=== PATIENT | male | born 1945 | race Caucasian/White ===

== ENCOUNTER → 2018-03-11 08:50 | Outpatient (CLI) | payer MEDICARE, SELFPAY ==
[2018-03-11 12:03] LABS: Absolute Lymphocyte Count 0.95 X10^3/ul (0.83-4.51); Absolute Neutrophil Count 6.1 X10^3/uL (2.0-7.7); Basophil# 0.01 X10^3/uL; Basophil% 0.1 % (0-1); Eosinophil# 0.11 X10^3/uL; Eosinophils% 1.4 % (0-5); Hematocrit 40.3 % (40-54); Hemoglobin 13.5 g/dl (13.0-16.5); Lymphocyte # 0.95 X10^3/ul (4.0); Lymphocyte % 12.1 % (19-41); Mean Corp Hgb Conc 33.5 g/gl (32-36); Mean Corpuscular Hgb 29.2 pg (27.0-32.0); Mean Corpuscular Volume 87.2 fL (80-94); Mean Platelet Vol. 8.8 fl (6.2-12.0); Monocyte# 0.61 X10^3/uL; Monocyte% 7.8 % (0-10); Neutrophil # 6.14 X10^3/uL (2.7-7.7); Neutrophil % 78.6 % (47-70); Platelet Count 141 K/mm3 (150-450); RBC Distribution Width CV 13.7 % (11.6-14.6); RBC Distribution Width SD 43.4 fl (35.1-43.9); Red Blood Count 4.62 M/mm3 (4.6-6.2); White Blood Count 7.8 K/mm3 (4.4-11.0)
[2018-03-11 12:04] LABS: POSITIVE COUNT NO; POSITIVE DIFFERENTIAL NO; POSITIVE MORPHOLOGY NO
[2018-03-11 12:29] LABS: ALB/GLOB Ratio 0.9 RATIO (0.9-2.4); AST(SGOT) 38 U/L (15-37); Alanine Aminotransfer ALT/SGPT 48 U/L (16-61); Albumin, Serum 3.4 g/dL (3.2-5.0); Alkaline Phosphatase 111 U/L (45-117); Anion Gap 5 (5-15); BUN 15 mg/dL (7-18); BUN/Creat Ratio 17.5 RATIO (10-20); Calcium,Total 9.1 mg/dL (8.5-10.1); Chloride 106 mmol/L (98-107); Creatinine, Serum 0.86 mg/dL (0.70-1.30); EST Glomerular Filtration Rate 93 mL/min (>60); Est Glom Filt Rate - Afr Amer 113 mL/min (>60); Globulin 3.7 g/dL (2.2-4.2); Glucose 103 mg/dL (74-106); Potassium 3.9 mmol/L (3.5-5.1); Protein, Total 7.1 g/dL (6.4-8.2); Sodium Level 142 mmol/L (136-145); Thyroid Stim Hormone (TSH) 1.31 uIU/mL (0.358-3.74)
[2018-03-12 12:02] LABS: Hep C Antibodies <0.1 s/co ratio (0.0-0.9)
== END ==
PROVIDERS: Family Provider Family Medicine Geriatric Medicine; PCP Family Medicine Geriatric Medicine; Visit Provider Family Medicine Geriatric Medicine
DX: Z13.89 Encounter for screening for other disorder (principal); E55.9 Vitamin D deficiency, unspecified; F52.8 Other sexual dysfunction not due to a substance or known physiological condition; I10 Essential (primary) hypertension
CPT/HCPCS: 36415; 80053; 82306; 84403; 84443; 85025; 86803

== ENCOUNTER → 2018-06-11 14:52 | Outpatient (CLI) | payer MEDICARE, SELFPAY ==
[2018-03-11 12:17] LABS: International Normalized Ratio 2.6; Prothrombin Time (Protime)PT. 28.1 SECONDS (11.7-14.9)
== END ==
PROVIDERS: Family Provider Family Medicine Geriatric Medicine; PCP Family Medicine Geriatric Medicine; Visit Provider Internal Medicine Cardiovascular Disease
DX: I48.1 Persistent atrial fibrillation (principal); Z79.01 Long term (current) use of anticoagulants
CPT/HCPCS: 36415; 85610

== ENCOUNTER 2018-08-22 14:06 | Emergency (ER) | payer MEDICARE, SELFPAY ==
[2018-08-22 14:07] VITALS: BP 167/111; PULSE 86; RESP 20; TEMP 36.6; O2SAT 98; BMI 43.0
--- NOTE | 2018-08-22 14:24 | CT_ITS ---
STUDY: CT ABDOMEN AND PELVIS WITHOUT CONTRAST REASON FOR EXAM: Male, 73 years old. Right flank pain. History of prostate cancer RADIATION DOSAGE (If Supplied By Facility): CTDIvol = ( 34.28 ) mGy, DLP = ( 1815.71 ) mGycm TECHNIQUE: Transaxial images were obtained from the dome of the diaphragm to the symphysis pubis without oral contrast, and without intravenous contrast. Sagittal and coronal images were reconstructed. Individualized dose optimization techniques were used for this CT. COMPARISON: March 27, 2016 FINDINGS: The visualized lung bases are unremarkable. The visualized portions of the heart are within normal limits. There is hepatomegaly with diffuse hepatic enlargement. There are surgical clips in the gallbladder fossa consistent with a prior cholecystectomy. Normal spleen. Normal pancreas. Normal bilateral adrenal glands. There is 1.2 cm cyst with layering increased density at the upper pole of the right kidney. There is 0.1 cm calcification at the lower pole. There is mild right hydronephrosis. There is 0.5 cm right ureteral stone at the level of the sacrum, series 2 image 126/193. There are 5 stones of the left kidney measuring 0.3 to 0.6 cm. Normal visualized stomach. Normal small intestine. Normal colon. The appendix is visualized and appears normal. There is diffuse atherosclerotic calcification of the abdominal aorta, without a demonstrated aneurysm. Normal inferior vena cava. Normal retroperitoneum. Normal urinary bladder. There are seed implants within the prostate gland Normal abdominal wall. There are diffuse degenerative changes of the visualized lumbar spine. CT/Abdomen/Pelvis without Cont IMPRESSION: Bilateral renal stones. Right ureteral stone with hydronephrosis. Electronically Signed: Shoaib Valentine MD at 15:54 EDT , Service support ,
--- NOTE | 2018-08-22 14:26 | ED.DCSUM_ITS ---
- ER Visit Summary Date of Service: 08/22/18 Chief Complaint: Right flank pain History of Present Illness: The patient is a 73 M nontraumatic sudden right flank pain starting 2 hours ago. No radicular symptoms. Nausea without vomiting. Currently not nauseated. Pain is 6.5-7 out of 10. History of kidney stones in the past last time was 3 years ago. This feels similar. No urinary symptoms. No fevers. He is on warfarin history of persistent A. fib. Last check was proximal month ago which was 3. No history of gastric ulcers or kidney injury. Physical Examination: General: Alert and oriented ?3, no acute distress HEENT: Normocephalic, atraumatic. Moist mucosa membranes Neck: supple, nontender. Cardiovascular: Regular rate and rhythm, no murmurs Respiratory: Normal breath sounds, symmetric, no distress Back: No CVA tenderness, no ecchymosis Abdomen: Soft, nontender, nondistended Extremities: Nontender, no edema, pulses intact ?4 Neuro: no focal neurological deficits. Test Results: WBC 6.9, hemoglobin 13.9. Creatinine 0.94. INR 2.6. CT abdomen pelvis: 0.5 cm distal right ureteral stone. Multiple nephrolithiasis.. UA: Emergency Department Course and Treatment: Renal stone protocol similar symptoms in the past. Treated with Zosyn and Toradol with pain control. He had transient nausea with pain. Basic labs normal. CT scan did confirm a distal right ureteral stone. He was given Flomax in the ED. Pain returned, treated with morphine. Pending urine results. 1650 urine blood with no infection. Pain controlled. He is on Terazosin at home for BPH. He will hold this this evening. He will continue it tomorrow. He will call his urologist Dr. Landrum for follow-up. Treatment Plan: [] Disposition: Discharge Impression: Right urolithiasis This note was generated with [employer] dictation software. It may contain incorrect words, spelling, and punctuation that were not noted in review of the chart prior to signing ED Disposition - Plan for ED Patient: Disposition: Home or Assisted Living Chief Complaint: Flank Pain Diagnosis: Urolithiasis Instructions: ED Stone Renal W Colic Prescriptions: Oxycodone HCl/Acetaminophen [Percocet 5/325] 1 tablet PO Q6H PRN PRN 3 Days #12 tablet PRN Reason: Pain Ondansetron [Zofran Odt] 8 mg PO Q8H PRN PRN #10 tab PRN Reason: Nausea Ibuprofen 600 mg PO 4X/DAY PRN #20 tablet PRN Reason: Pain Referrals: James Pisano Chi, MD [Primary Care Provider] - Molina Landrum MD [NON-STAFF] - 3-5 Days Additional Instructions: 0.5cm distal right ureter.
[2018-08-22] MEDS: 0.9% Normal Saline 1,000 ML 250 ML IV (14:41)
[2018-08-22 14:42] LABS: Absolute Lymphocyte Count 1.19 X10^3/ul (0.83-4.51); Basophil# 0.02 X10^3/uL; Basophil% 0.3 % (0-1); Eosinophils% 2.9 % (0-5); Hematocrit 40.8 % (40-54); Hemoglobin 13.9 g/dl (13.0-16.5); Lymphocyte # 1.19 X10^3/ul (4.0); Lymphocyte % 17.3 % (19-41); Mean Corp Hgb Conc 34.1 g/gl (32-36); Mean Corpuscular Volume 85.2 fL (80-94); Mean Platelet Vol. 8.6 fl (6.2-12.0); Monocyte# 0.43 X10^3/uL; Monocyte% 6.2 % (0-10); Neutrophil # 5.04 X10^3/uL (2.7-7.7); Neutrophil % 73.2 % (47-70); POSITIVE COUNT NO; POSITIVE DIFFERENTIAL NO; POSITIVE MORPHOLOGY NO; Platelet Count 160 K/mm3 (150-450); RBC Distribution Width CV 13.9 % (11.6-14.6); RBC Distribution Width SD 42.3 fl (35.1-43.9); Red Blood Count 4.79 M/mm3 (4.6-6.2); White Blood Count 6.9 K/mm3 (4.4-11.0)
[2018-08-22] MEDS: Ondansetron 4 MG/2 ML Vial IV (14:42)
[2018-08-22] MEDS: Ketorolac 30 MG/ML Syringe IV (14:42)
[2018-08-22 14:47] LABS: International Normalized Ratio 2.6; Prothrombin Time (Protime)PT. 27.8 SECONDS (11.7-14.9)
[2018-08-22 14:53] LABS: Anion Gap 6 (5-15); BUN 12 mg/dL (7-18); BUN/Creat Ratio 12.8 RATIO (10-20); Calcium,Total 8.9 mg/dL (8.5-10.1); Chloride 105 mmol/L (98-107); Creatinine, Serum 0.94 mg/dL (0.70-1.30); EST Glomerular Filtration Rate 84 mL/min (>60); Est Glom Filt Rate - Afr Amer 102 mL/min (>60); Estimated Creatinine Clearance 79.11 ml/min; Glucose 117 mg/dL (74-106); Potassium 4.2 mmol/L (3.5-5.1); Sodium Level 139 mmol/L (136-145)
[2018-08-22] MEDS: Tamsulosin HCl 0.4 MG Capsule PO (15:41)
[2018-08-22] MEDS: Morphine 4 MG/ML Syringe IV (16:25)
[2018-08-22 16:35] LABS: Bacteria 0 SEEN /hpf (None Seen); Mucous, Urine 0 SEEN /hpf (<or=2+); White Blood Cells 0 SEEN /hpf (0-5)
[2018-08-22 16:39] LABS: Color, Urine Yellow (Yellow); Glucose, Dipstick Normal (Normal); Ketone-Dipstick Negative (Negative); Leukocyte Esterase-Dipstick Negative /ul (Negative); Nitrite-Dipstick Negative (Negative); Occult Blood-Urine 50 /ul (Negative); Protein-Dipstick Negative (Negative); Urine Bilirubin Dipstick Negative (Negative); Urine Clarity Sl. Cloudy (Clear); Urine Urobilinogen Normal (Normal)
[2018-08-22 16:54] LABS: Red Blood Cells-Urine 0-5 SEEN /hpf (0-5); Squamous Epithelial Cells - UA 0-5 SEEN /hpf (0-5)
[2018-08-22 17:18] VITALS: BP 153/78; PULSE 82; RESP 16; O2SAT 98
== END 2018-08-22 17:21 | disposition home or self-care (01) ==
PROVIDERS: Emergency Provider Emergency Medicine; Family Provider Family Medicine Geriatric Medicine; PCP Family Medicine Geriatric Medicine
DX: N20.2 Calculus of kidney with calculus of ureter (principal); Z87.442 Personal history of urinary calculi; I48.1 Persistent atrial fibrillation; I25.10 Atherosclerotic heart disease of native coronary artery without angina pectoris; Z95.1 Presence of aortocoronary bypass graft; Z85.46 Personal history of malignant neoplasm of prostate; Z90.49 Acquired absence of other specified parts of digestive tract; Z79.01 Long term (current) use of anticoagulants; Z79.82 Long term (current) use of aspirin; Z79.899 Other long term (current) drug therapy; Z87.891 Personal history of nicotine dependence
CPT/HCPCS: 74176; 80048; 81001; 85025; 85610; 96361; 96374; 96375; 99284; J7030; A4216; J2405

== ENCOUNTER 2018-12-27 09:37 | Emergency (ER) | payer OTHER, MEDICARE, SELFPAY ==
[2018-12-03 10:43] VITALS: BMI 41.6
[2018-12-27 09:38] VITALS: BP 147/94; PULSE 101; RESP 22; TEMP 36.6; O2SAT 93; BMI 33.9
[2018-12-27 09:45] VITALS: BP 125/63; PULSE 93; O2SAT 92
--- NOTE | 2018-12-27 09:48 | ED.RN ---
made aware patient is here at this time.
--- NOTE | 2018-12-27 09:53 | EKG12_ITS ---
Test Reason : FALL Blood Pressure : / mmHG Vent. Rate : 100 BPM Atrial Rate : 441 BPM P-R Int : 000 ms QRS Dur : 090 ms QT Int : 344 ms P-R-T Axes : 000 031 029 degrees QTc Int : 443 ms Atrial fibrillation with premature ventricular or aberrantly conducted complexes Nonspecific ST and T wave abnormality Abnormal ECG Confirmed by HANNAH SIMON, ANNA ([id number]), deputy editor in chief JESSICA MILNER ([id number]) on 12/29/2018 9:36:17 AM Referred By: Confirmed By:ANNA YOUNG MD
--- NOTE | 2018-12-27 09:53 | RAD_ITS ---
STUDY: X-RAY CHEST REASON FOR EXAM: Male, 73 years old. History of fall. TECHNIQUE: Single AP portable view of the chest. COMPARISON: Comparison is made with prior study of April 02, 2016. FINDINGS: EKG electrodes are seen. Hyperinflation. Mild increased markings at the lung bases suggestive of scarring and/or atelectasis. Mild degree of vascular congestion. There is no demonstrated pleural abnormality. Sternal cerclage wires and vascular clips are present from a prior sternotomy and coronary artery bypass graft procedure (CABG). Moderate cardiomegaly. Normal mediastinum and parul. Normal visualized pulmonary arteries. Normal visualized aortic arch and descending thoracic aorta. Normal visualized thoracic spine. Normal visualized ribs, clavicles, and shoulders. There is no demonstrated abnormality of the visualized soft tissue structures of the upper abdomen. RAD/Chest 1 View (Portable) IMPRESSION: Moderate cardiomegaly. Findings suggestive of a mild vascular congestion with mild linear atelectasis at the lung bases. Electronically Signed: Benjie Lieberman MD at 10:54 EST , Service support ,
--- NOTE | 2018-12-27 09:53 | CT_ITS ---
We are attempting to reach Efrain Enriquez MD to discuss findings. An addendum with communication details will be sent when the communication is complete. STUDY: CT BRAIN WITHOUT CONTRAST REASON FOR EXAM: Male, 73 years old. PT STATED FALL DOWN STAIRS. TAKES ASPIRIN AND COUMADIN DAILY.. RADIATION DOSAGE (If Supplied By Facility): CTDIvol = ( 44.99 ) mGy, DLP = ( 829.85 ) mGycm TECHNIQUE: Transaxial CT imaging of the brain was performed without administration of intravenous contrast material. Individualized dose optimization techniques were used for this CT. COMPARISON: None. FINDINGS: There is hyperdensity along the interhemispheric fissure and tentorium. There is hyperdensity along the right parasagittal sulci as well, consistent with subarachnoid hemorrhage. There is a 3 mm thick hyperdensity along the left frontal convexity (axial image #26 series 2) There is mild cerebral atrophy with widening of the extra-axial spaces and ventricular dilatation. There are areas of decreased attenuation within the white matter tracts of the supratentorial brain, consistent with microvascular disease changes. Normal basal ganglia and thalami. Normal brainstem. Normal cerebellum. There are no findings of an acute ischemic infarction. Normal visualized paranasal sinuses. There is left occipital swelling. CT/Brain/Head without Contrast IMPRESSION: Left frontal subdural/epidural hematoma. Subarachnoid hemorrhage. Electronically Signed: Christina Hernandez MD at 10:48 EST Tel , Service support ,
--- NOTE | 2018-12-27 09:54 | RAD_ITS ---
STUDY: X-RAY - RIGHT HAND REASON FOR EXAM: Male, 73 years old. Pain following a fall. TECHNIQUE: 3 view(s) of the hand. COMPARISON: None. FINDINGS: Normal radiocarpal articulation. Normal distal radioulnar joint. Normal visualized carpal bones. Normal carpal articulations Normal carpometacarpal articulation of the thumb. Normal second through fifth carpometacarpal joints. Normal metacarpi. Normal metacarpophalangeal joint of the thumb. Normal interphalangeal joint of the thumb. Normal proximal and distal phalanges of the thumb. Normal metacarpophalangeal joints of the second through fifth fingers. Normal proximal and distal interphalangeal joints of the second through fifth fingers. Normal phalanges of the second through fifth fingers. Soft tissue swelling. Vascular calcification. RAD/Hand Min 3 Views IMPRESSION: Soft tissue swelling and vascular calcification. Electronically Signed: Benjie Lieberman MD at 10:56 EST , Service support ,
--- NOTE | 2018-12-27 09:55 | RAD_ITS ---
STUDY: X-RAY - LEFT HAND REASON FOR EXAM: Male, 73 years old. Pain following a fall. TECHNIQUE: 3 view(s) of the hand. COMPARISON: None. FINDINGS: Normal radiocarpal articulation. Normal distal radioulnar joint. Normal visualized carpal bones. Normal carpal articulations Normal carpometacarpal articulation of the thumb. Normal second through fifth carpometacarpal joints. Normal metacarpi. Normal metacarpophalangeal joint of the thumb. Normal interphalangeal joint of the thumb. Normal proximal and distal phalanges of the thumb. Normal metacarpophalangeal joints of the second through fifth fingers. Normal proximal and distal interphalangeal joints of the second through fifth fingers. Normal phalanges of the second through fifth fingers. Soft tissue swelling. Vascular calcification. RAD/Hand Min 3 Views IMPRESSION: Soft tissue swelling and vascular calcification. Electronically Signed: Benjie Lieberman MD at 10:59 EST , Service support ,
--- NOTE | 2018-12-27 09:55 | CT_ITS ---
We are attempting to reach Efrain Enriquez MD to discuss findings. An addendum with communication details will be sent when the communication is complete. STUDY: CT CERVICAL SPINE WITHOUT CONTRAST REASON FOR EXAM: Male, 73 years old. PT STATED FALL DOWN STAIRS. TAKES ASPIRIN AND COUMADIN DAILY. RADIATION DOSAGE (If Supplied By Facility): CTDIvol = ( 30.21 ) mGy, DLP = ( ) mGycm TECHNIQUE: The patient was scanned in a multi detector CT scanner. High resolution transaxial imaging was performed. Sagittal and coronal images were reconstructed. Individualized dose optimization techniques were used for this CT. COMPARISON: None FINDINGS: Examination is degraded by motion artifact. Normal cervical lordosis. There are no demonstrated fractures of the cervical spine. There is multilevel endplate spondylosis of the vertebrae. There is multi-level degenerative disc disease with multi-level disc space narrowing. There is a hyperdense right pleural fluid. CT/Spine Cervical without Contras IMPRESSION: Limited examination. No demonstrated fractures. Hyperdense right pleural effusion, hemorrhage is not excluded. Further evaluation with CT chest is recommended. Electronically Signed: Christina Hernandez MD at 10:51 EST Tel , Service support ,
[2018-12-27] MEDS: Ondansetron 4 MG/2 ML Vial IV (10:08)
[2018-12-27 10:24] LABS: Hematocrit 37.7 % (40-54); Hemoglobin 12.3 g/dl (13.0-16.5); Mean Corpuscular Hgb 28.5 pg (27.0-32.0); Mean Corpuscular Volume 87.3 fL (80-94); Red Blood Count 4.32 M/mm3 (4.6-6.2); White Blood Count 6.6 K/mm3 (4.4-11.0)
[2018-12-27 10:25] VITALS: BP 133/102; PULSE 102; RESP 27; O2SAT 95
[2018-12-27 10:25] LABS: Basophil% 0.3 % (0-1); Lymphocyte # 0.95 X10^3/ul (4.0); Lymphocyte % 14.4 % (19-41); Mean Corp Hgb Conc 32.6 g/gl (32-36); Monocyte% 6.4 % (0-10); Neutrophil # 5.01 X10^3/uL (2.7-7.7); Neutrophil % 75.8 % (47-70); Platelet Count 136 K/mm3 (150-450); RBC Distribution Width CV 13.8 % (11.6-14.6); RBC Distribution Width SD 44.2 fl (35.1-43.9)
[2018-12-27 10:26] LABS: Absolute Lymphocyte Count 0.95 X10^3/ul (0.83-4.51); Basophil# 0.02 X10^3/uL; Eosinophil# 0.13 X10^3/uL; Monocyte# 0.42 X10^3/uL; POSITIVE COUNT NO; POSITIVE DIFFERENTIAL NO; POSITIVE MORPHOLOGY NO
[2018-12-27 10:31] VITALS: BP 128/66; PULSE 98; O2SAT 95
[2018-12-27 10:31] LABS: Prothrombin Time (Protime)PT. 29.2 SECONDS (11.7-14.9)
[2018-12-27 10:32] LABS: International Normalized Ratio 2.7
--- NOTE | 2018-12-27 10:34 | ED.VISSUMM ---
- ER Visit Summary Date of Service: 12/27/18 Chief Complaint: Patient presents by ambulance after fall with loss of conscious. History of Present Illness: The patient is a 73 M patient is not oriented. He is not alert. He does not recall what happened. I was informed that he was walking out of his place of employment slipped on ice hitting the back of his head. He does report head pain and nausea. He denies trouble with vision. He denies chest pain or shortness of breath. He does complain of low back pain. He denies pain in his lower extremity's. He complains of bilateral hand pain. Past medical history of coronary disease status post multivessel bypass, diabetes, hypertension, hypercholesterolemia and chronic H fibrillation on Coumadin. Physical Examination: Vital signs noted. Heart rate is 102. Monitor reveals atrial fibrillation without ectopy. Patient has deformities in the occiput. There is no point depression. There is no hemotympanum. There is no CSF otorrhea or rhinorrhea. Negative raccoon sign or sanches sign. Trachea midline. Could not clear his C-spine per Nexus criteria. Heart is irregularly irregular and rapid. Lungs reveal breath sounds bilaterally but diminished. Abdomen soft nontender. Is no pain the patient the pelvis. No pain palpation of the thigh, leg or feet. There is pain palpation of the right and left hand with contusions and abrasions noted. Radial pulses palpable bilateral. Unable to appreciate PT pulse either side. Capillary refill in digits upper and lower extremity is normal. GCS is 14. Test Results: CT of the head interpreted by me as subdural hematoma involving the falx, contusion multiple cuts parenchyma right side and traumatic subarachnoid hemorrhage. C-spine reviewed by me interpreted radiologist as negative for acute findings. Portable chest x-ray is supine. Unable to determine if there truly is what he the mediastinum suspect secondary to fact that he is post coronary bypass surgery and supine. There is increased interstitial markings which may be secondary the fact the patient is on a board. Three-view x-ray of the right and left hand were interpreted by me as negative. Hemoglobin 12.3 with hematocrit of 37.7. Basic metabolic panel is pending. INR is 2.7. Emergency Department Course and Treatment: Stat CT of the head and neck because of concern for traumatic bleed. Stat PT/INR. Since patient does have entered cranial bleed he was treated with 10 mg of vitamin K IV and once INR was obtained he was ordered [facility]. Pharmacist is aware. Attempt to transfer by ground unsuccessful. Attempt to transfer by air unsuccessful. [facility], was contacted and is willing to transfer for patient emergently to [facility] where he was accepted by Dr. Ira Bro. Critical care time 32 minutes Treatment Plan: Vitamin K, [facility], stabilization, transfer to trauma center Disposition: Critical transfer to trauma center Impression: 1. Traumatic brain injury with subdural of falx, right parenchymal bleed multiple cuts and traumatic subarachnoid hemorrhage 2. Coumadin induced coagulopathy for treatment of chronic A. fib with RVR 3. History of coronary disease 4. History of diabetes 5. History of hypertension 6. History of hypercholesterolemia This note was generated with [employer] dictation software. It may contain incorrect words, spelling, and punctuation that were not noted in review of the chart prior to signing ED Disposition - Plan for ED Patient: Referrals: James Pisano Chi, MD [Primary Care Provider] -
[2018-12-27 10:37] LABS: Anion Gap 6 (5-15); BUN 14 mg/dL (7-18); BUN/Creat Ratio 15.8 RATIO (10-20); Calcium,Total 8.3 mg/dL (8.5-10.1); Chloride 108 mmol/L (98-107); Creatinine, Serum 0.89 mg/dL (0.70-1.30); EST Glomerular Filtration Rate 90 mL/min (>60); Est Glom Filt Rate - Afr Amer 109 mL/min (>60); Estimated Creatinine Clearance 83.56 ml/min; Glucose 159 mg/dL (74-106); Potassium 3.7 mmol/L (3.5-5.1); Sodium Level 142 mmol/L (136-145)
--- NOTE | 2018-12-27 10:37 | ED.DCSUM_ITS ---
- ER Visit Summary Date of Service: 12/27/18 Chief Complaint: Patient presents by ambulance after fall with loss of conscious. History of Present Illness: The patient is a 73 M patient is not oriented. He is not alert. He does not recall what happened. I was informed that he was walking out of his place of employment slipped on ice hitting the back of his head. He does report head pain and nausea. He denies trouble with vision. He denies chest pain or shortness of breath. He does complain of low back pain. He denies pain in his lower extremity's. He complains of bilateral hand pain. Past medical history of coronary disease status post multivessel bypass, diabetes, hypertension, hypercholesterolemia and chronic H fibrillation on Coumadin. Physical Examination: Vital signs noted. Heart rate is 102. Monitor reveals atrial fibrillation without ectopy. Patient has deformities in the occiput. There is no point depression. There is no hemotympanum. There is no CSF otorrhea or rhinorrhea. Negative raccoon sign or sanches sign. Trachea midline. Could not clear his C-spine per Nexus criteria. Heart is irregularly irregular and rapid. Lungs reveal breath sounds bilaterally but diminished. Abdomen soft nontender. Is no pain the patient the pelvis. No pain palpation of the thigh, leg or feet. There is pain palpation of the right and left hand with contusions and abrasions noted. Radial pulses palpable bilateral. Unable to appreciate PT pulse either side. Capillary refill in digits upper and lower extremity is normal. GCS is 14. Test Results: CT of the head interpreted by me as subdural hematoma involving the falx, contusion multiple cuts parenchyma right side and traumatic subarachnoid hemorrhage. C-spine reviewed by me interpreted radiologist as negative for acute findings. Portable chest x-ray is supine. Unable to determine if there truly is what he the mediastinum suspect secondary to fact that he is post coronary bypass surgery and supine. There is increased interstitial markings which may be secondary the fact the patient is on a board. Three-view x-ray of the right and left hand were interpreted by me as negative. Hemoglobin 12.3 with hematocrit of 37.7. Basic metabolic panel is pending. INR is 2.7. Emergency Department Course and Treatment: Stat CT of the head and neck because of concern for traumatic bleed. Stat PT/INR. Since patient does have entered cranial bleed he was treated with 10 mg of vitamin K IV and once INR was obtained he was ordered [facility]. Pharmacist is aware. Attempt to transfer by ground unsuccessful. Attempt to transfer by air unsuccessful. Local [facility], was contacted and is willing to transfer for patient emergently to [facility] where he was accepted by Dr. Ira Bro. Critical care time 32 minutes Treatment Plan: Vitamin K, [facility], stabilization, transfer to trauma center Disposition: Critical transfer to trauma center Impression: 1. Traumatic brain injury with subdural of falx, right parenchymal bleed multiple cuts and traumatic subarachnoid hemorrhage 2. Coumadin induced coagulopathy for treatment of chronic A. fib with RVR 3. History of coronary disease 4. History of diabetes 5. History of hypertension 6. History of hypercholesterolemia This note was generated with [employer] dictation software. It may contain incorrect words, spelling, and punctuation that were not noted in review of the chart prior to signing ED Disposition - Plan for ED Patient: Referrals: James Pisano Chi, MD [Primary Care Provider] -
[2018-12-27 10:42] VITALS: BP 126/70; PULSE 103; RESP 28
[2018-12-27 10:45] VITALS: BP 137/99; PULSE 104; O2SAT 95
[2018-12-27 10:50] LABS: White Blood Cells 0 SEEN /hpf (0-5)
[2018-12-27 10:55] LABS: Color, Urine Yellow (Yellow); Glucose, Dipstick Normal (Normal); Ketone-Dipstick 5 mg/dl (Negative); Leukocyte Esterase-Dipstick Negative /ul (Negative); Nitrite-Dipstick Negative (Negative); Occult Blood-Urine 250 /ul (Negative); Protein-Dipstick 30 mg/dl (Negative); Urine Bilirubin Dipstick Negative (Negative); Urine Clarity Clear (Clear); Urine Urobilinogen 1 mg/dl (Normal)
[2018-12-27 11:08] LABS: Bacteria RARE /hpf (None Seen); Hyaline Cast 0-5 SEEN /lpf (0-5); Mucous, Urine 1+ /hpf (<or=2+); Red Blood Cells-Urine 10-25 SEEN /hpf (0-5); Squamous Epithelial Cells - UA 0-5 SEEN /hpf (0-5)
== END 2018-12-27 11:13 | disposition short-term general hospital (02) ==
LOC: ED 10:09
PROVIDERS: Emergency Provider Emergency Medicine; Family Provider Family Medicine Geriatric Medicine; PCP Family Medicine Geriatric Medicine
DX: S06.5X9A Traumatic subdural hemorrhage with loss of consciousness of unspecified duration, initial encounter (principal); S06.6X9A Traumatic subarachnoid hemorrhage with loss of consciousness of unspecified duration, initial encounter; S27.1XXA Traumatic hemothorax, initial encounter; W00.0XXA Fall on same level due to ice and snow, initial encounter; Y93.01 Activity, walking, marching and hiking; Y92.9 Unspecified place or not applicable; Y99.0 Civilian activity done for income or pay; D68.32 Hemorrhagic disorder due to extrinsic circulating anticoagulants; T45.515A Adverse effect of anticoagulants, initial encounter; I48.2 Chronic atrial fibrillation; E11.9 Type 2 diabetes mellitus without complications; I10 Essential (primary) hypertension; E78.00 Pure hypercholesterolemia, unspecified; I25.10 Atherosclerotic heart disease of native coronary artery without angina pectoris; E66.9 Obesity, unspecified; Z68.33 Body mass index [BMI] 33.0-33.9, adult; Z79.01 Long term (current) use of anticoagulants; Z79.82 Long term (current) use of aspirin; Z79.899 Other long term (current) drug therapy; Z87.891 Personal history of nicotine dependence
CPT/HCPCS: 70450; 71045; 72125; 73130; 80048; 81001; 85025; 85610; 93005; 96365; 96375; 99285; C9132; J7030; A4216; J2405; J3490

== ENCOUNTER 2019-08-22 13:56 | Outpatient (RCR) | payer MEDICARE, SELFPAY ==
[2019-03-15 11:20] VITALS: BMI 38.3
[2019-08-22 14:32] LABS: International Normalized Ratio 3.2
== END 2019-08-22 18:00 | disposition home or self-care (01) ==
LOC: LAB 13:56
PROVIDERS: Family Provider Family Medicine Geriatric Medicine; PCP Family Medicine Geriatric Medicine; Referring Provider Nurse Practitioner Family; Visit Provider Nurse Practitioner Family
DX: Z79.01 Long term (current) use of anticoagulants (principal)
CPT/HCPCS: 36415; 85610

== ENCOUNTER → 2019-09-20 12:16 | Outpatient (CLI) | payer OTHER, SELFPAY ==
[2019-03-15 11:20] VITALS: BMI 38.3
[2019-09-20 15:46] LABS: Absolute Neutrophil Count 4.7 X10^3/uL (2.0-7.7); Basophil# 0.03 X10^3/uL; Basophil% 0.5 % (0-1); Eosinophil# 0.21 X10^3/uL; Eosinophils% 3.2 % (0-5); Hematocrit 39.9 % (40-54); Hemoglobin 12.8 g/dL (13.0-16.5); Lymphocyte % 16.7 % (19-41); Mean Corp Hgb Conc 32.1 g/dL (32-36); Mean Corpuscular Hgb 27.8 pg (27.0-32.0); Mean Corpuscular Volume 86.6 fL (80-94); Mean Platelet Vol. 9.7 fl (6.2-12.0); Monocyte# 0.52 X10^3/uL; Monocyte% 7.9 % (0-10); NRBC Flagged by Analyzer 0 % (0-5); Neutrophil # 4.71 X10^3/uL (2.7-7.7); Neutrophil % 71.5 % (47-70); Platelet Count 151 K/mm3 (150-450); RBC Distribution Width CV 13.7 % (11.6-14.6); Red Blood Count 4.61 M/mm3 (4.6-6.2); White Blood Count 6.6 K/mm3 (4.4-11.0)
[2019-09-20 16:30] LABS: ALB/GLOB Ratio 0.9 RATIO (0.9-2.4); AST(SGOT) 30 U/L (15-37); Alanine Aminotransfer ALT/SGPT 47 U/L (16-61); Albumin, Serum 3.5 g/dL (3.2-5.0); Alkaline Phosphatase 131 U/L (45-117); Anion Gap 6 (5-15); BUN 15 mg/dL (7-18); BUN/Creat Ratio 16.9 RATIO (10-20); Calcium,Total 9.4 mg/dL (8.5-10.1); Chloride 105 mmol/L (98-107); Creatinine, Serum 0.89 mg/dL (0.70-1.30); EST Glomerular Filtration Rate 89 mL/min (>60); Est Glom Filt Rate - Afr Amer 108 mL/min (>60); Glucose 90 mg/dL (74-106); Potassium 4.4 mmol/L (3.5-5.1); Protein, Total 7.5 g/dL (6.4-8.2); Sodium Level 140 mmol/L (136-145)
== END ==
PROVIDERS: Family Provider Family Medicine Geriatric Medicine; PCP Family Medicine Geriatric Medicine; Visit Provider Family Medicine Geriatric Medicine
DX: E23.6 Other disorders of pituitary gland (principal); E55.9 Vitamin D deficiency, unspecified; I10 Essential (primary) hypertension
CPT/HCPCS: 36415; 80053; 82306; 84403; 84443; 85025

== ENCOUNTER 2019-09-26 15:03 | Outpatient (RCR) | payer MEDICARE, SELFPAY ==
[2019-03-15 11:20] VITALS: BMI 38.3
[2019-09-26 14:25] VITALS: BMI 39.7
[2019-09-26 16:09] LABS: International Normalized Ratio 2.9; Prothrombin Time (Protime)PT. 30.6 SECONDS (11.7-14.9)
== END 2019-09-26 18:00 | disposition home or self-care (01) ==
LOC: LAB 15:03
PROVIDERS: Family Provider Family Medicine Geriatric Medicine; PCP Family Medicine Geriatric Medicine; Referring Provider Nurse Practitioner Family; Visit Provider Nurse Practitioner Family
DX: Z79.01 Long term (current) use of anticoagulants (principal)
CPT/HCPCS: 36415; 85610

== ENCOUNTER → 2019-10-20 12:43 | Outpatient (CLI) | payer MEDICARE, SELFPAY ==
[2019-09-26 14:25] VITALS: BMI 39.7
--- NOTE | 2019-10-20 12:47 | STEWCON_ITS ---
Reason For Study: CAD, Afib Stress Results Protocol: Dobutamine Stress Echo With Definity Maximum Predicted HR: 148 bpm Target HR: 126 bpm % Maximum Predicted HR: 94 % DurationHeart Rate Stage (mm:ss) (bpm) BP Dose Comment baseline 109 156/93 3ml total definity given stage 1 3:37 139 161/8610.00 stage 2 0:34 126 / 20.00 recovery 100 158/82 Stress Duration: 4:11 mm:ss Maximum Stress HR: 139 bpm Baseline Echocardiogram Findings The estimated ejection fraction is 65 %. Normal size and thickness. Stress Echo Wall motion Data Resting WM Intermediate WM Stress WM Resting Wall Motion Wall Motion Stress No regional wall motion No regional wall motion abnormalities noted. abnormalities noted. EKG Data Atrial fibrillation with controlled ventricular response. The patient was titrated from 10 mcg to a maximum of 20 mcg of dobutamine during the stress. The maximum heart rate attained was 164 beats per minute. This was 110% of maximum predicted heart rate. During dobutamine infusion, there were no ST or T wave changes noted to suggest ischemia. No clinical angina was noted. Interpretation Summary The estimated ejection fraction is 65 %. Normal, adequate, dobutamine echocardiogram. Negative for ischemia by EKG and echocardiographic anterior. No anginal symptoms noted. Baseline atrial fibrillation but no other arrhythmias noted. Appropriate blood pressure response to dobutamine. Test terminated due to the attainment of target heart rate. Final LVEF is 75%. Decrease sensitivity due to poor echo windows requiring Definity agent. Patient tolerated the procedure well. No complications. The study was technically difficult. Contrast injection was performed. Ordering Physician: Hilario Rm Referring Physician: Hilario Rm Performed By: Belgica Turner RDCS
== END ==
PROVIDERS: Family Provider Family Medicine Geriatric Medicine; PCP Family Medicine Geriatric Medicine; Referring Provider Internal Medicine Cardiovascular Disease; Visit Provider Internal Medicine Cardiovascular Disease
DX: E78.5 Hyperlipidemia, unspecified (principal); I10 Essential (primary) hypertension; I25.10 Atherosclerotic heart disease of native coronary artery without angina pectoris; Z98.890 Other specified postprocedural states; Z95.1 Presence of aortocoronary bypass graft; I48.19 Other persistent atrial fibrillation
CPT/HCPCS: 93017; 93350; J7040; Q9957; A4216; C8928

== ENCOUNTER 2019-10-28 13:36 | Emergency (ER) | payer OTHER, MEDICARE, SELFPAY ==
[2019-10-28 13:38] VITALS: BP 146/83; PULSE 93; RESP 18; TEMP 36.4; O2SAT 97; BMI 39.8
--- NOTE | 2019-10-28 14:13 | ED.DCSUM_ITS ---
- ER Visit Summary Date of Service: 10/28/19 Chief Complaint: C. difficile infection History of Present Illness: The patient is a 74 M who presents with C. difficile infection the has been constant over the past several weeks. Patient is currently on oral vancomycin. Patient does not have a physician who can follow this since it is [facility] Patient states he contacted Dr. Mercado who does not see [facility] patient. Patient states he also was referred to Dr. Omalley who would not see him if he is not already an established patient in his practice. Patient was then referred to the emergency department for referral to [facility] physicians. Patient states his diarrhea is improvin g. Patient is on oral vancomycin for this. Patient denies any abdominal pain. Patient denies any nausea or vomiting. Patient denies any urinary complaints. Physical Examination: Vital signs are stable. Patient is afebrile. Patient is in no acute distress. Oral mucosa is pink and moist. Neck is supple. Trachea is midline. There is no JVD noted. Heart was regular rate and rhythm. Lungs are clear and equal bilateral. Abdomen is soft. Bowel sounds are normal. There is no tenderness. There is no guarding noted. Skin is warm dry. Cranial nerves II through XII are intact. There are no focal motor or sensory deficits noted. Emergency Department Course and Treatment: Patient is asymptomatic here. [facility] Patient was instructed to follow-up in 5 to 7 days. Patient was instructed to continue his oral vancomycin as previously prescribed. Patient understood and was agreeable with the plan. All questions were answered. Disposition: Discharge home Impression: C. difficile infection This note was generated with [employer] dictation software. It may contain incorrect words, spelling, and punctuation that were not noted in review of the chart prior to signing ED Disposition - Plan for ED Patient: Disposition: Home or Assisted Living Diagnosis: C. difficile diarrhea Instructions: Clostridium difficile Infection Referrals: James Pisano Chi, MD [Primary Care Provider] - [facility] [GROUP OF PHYSICIANS] - 5-7 Days
--- NOTE | 2019-10-28 14:33 | ED.RN ---
DISCHARGE INSTRUCTIONS GIVEN TO AND REVIEWED WITH PATIENT, PATIENT DENIES QUESTIONS OR CONCERNS AND VOICES UNDERSTANDING OF DISCHARGE INSTRUCTIONS. PT AMBULATES OUT OF ROOM WITHOUT DIFFICULTY.
== END 2019-10-28 14:34 | disposition home or self-care (01) ==
PROVIDERS: Emergency Provider Emergency Medicine; Family Provider Family Medicine Geriatric Medicine; PCP Family Medicine Geriatric Medicine
DX: A04.72 Enterocolitis due to Clostridium difficile, not specified as recurrent (principal); I25.10 Atherosclerotic heart disease of native coronary artery without angina pectoris; I10 Essential (primary) hypertension; E78.00 Pure hypercholesterolemia, unspecified; I48.91 Unspecified atrial fibrillation; G47.30 Sleep apnea, unspecified; Z95.1 Presence of aortocoronary bypass graft; Z85.46 Personal history of malignant neoplasm of prostate
CPT/HCPCS: 99282

== ENCOUNTER 2019-11-10 14:00 | Outpatient (RCR) | payer MEDICARE, SELFPAY ==
[2019-11-10 14:53] LABS: International Normalized Ratio 3.1; Prothrombin Time (Protime)PT. 32.1 SECONDS (11.7-14.9)
== END 2019-11-10 18:00 | disposition home or self-care (01) ==
LOC: LAB 14:00
PROVIDERS: Internal Medicine Cardiovascular Disease; Family Provider Family Medicine Geriatric Medicine; PCP Family Medicine Geriatric Medicine; Referring Provider Nurse Practitioner Family; Visit Provider Nurse Practitioner Family
DX: Z79.01 Long term (current) use of anticoagulants (principal)
CPT/HCPCS: 36415; 85610

== ENCOUNTER → 2019-11-16 15:00 | Outpatient (CLI) | payer MEDICARE, SELFPAY ==
[2019-10-28 13:38] VITALS: BMI 39.8
[2019-11-16 15:58] LABS: Absolute Neutrophil Count 5.1 X10^3/uL (2.0-7.7); Basophil# 0.02 X10^3/uL; Basophil% 0.3 % (0-1); Eosinophil# 0.19 X10^3/uL; Eosinophils% 2.7 % (0-5); Hemoglobin 12.2 g/dL (13.0-16.5); Lymphocyte % 16.9 % (19-41); Mean Corp Hgb Conc 32.1 g/dL (32-36); Mean Corpuscular Hgb 27.7 pg (27.0-32.0); Mean Corpuscular Volume 86.4 fL (80-94); Mean Platelet Vol. 9.1 fl (6.2-12.0); Monocyte# 0.62 X10^3/uL; Monocyte% 8.7 % (0-10); NRBC Flagged by Analyzer 0 % (0-5); Neutrophil # 5.05 X10^3/uL (2.7-7.7); Neutrophil % 71.3 % (47-70); Platelet Count 145 K/mm3 (150-450); RBC Distribution Width CV 13.6 % (11.6-14.6); RBC Distribution Width SD 42.9 fl (35.1-43.9); White Blood Count 7.1 K/mm3 (4.4-11.0)
== END ==
PROVIDERS: Family Provider Family Medicine Geriatric Medicine; PCP Family Medicine Geriatric Medicine; Visit Provider Family Medicine Geriatric Medicine
DX: M79.605 Pain in left leg (principal)
CPT/HCPCS: 36415; 85025

== ENCOUNTER 2019-11-25 12:00 | Outpatient (RCR) | payer OTHER, SELFPAY ==
[2019-03-15 11:20] VITALS: BMI 38.3
--- NOTE | 2019-06-17 13:56 | HP.PTEVAL ---
Patient's Visit Information MEENAKSHI NI is a 73 year old M referred to Physical Therapy by David Madison MD with a diagnosis of CLOSED UNSTABLE BURST FX THORACIC SPINE. Date of Evaluation: 06/17/19 Physical Therapist: Kathy Farrell PT, Cert MDT - Visit Plan Frequency: 3x /Week Duration: 6 Weeks Plan: AQUATIC THERAPY AND LAND THERAPY FOR PAIN RELEIF, POSTURE CORRECTION/STRENGTHENING, INSTRUCTION IN APPROPRIATE BODY MECHANICS AND ACTIVITY MODIFICATIONS. DLS STARTING WITH A NEUTRAL SPINE PROGRESSING ROM TOLERATED. THELMA LE ROM, STRETCHING AND STRENGTHENING. HEP INSTRUCTION. - Subjective Findings: DX: BURST FX OF T9 WITH FUSION SURGERY APPRX 12/28/18 (APPRX 6 MONTHS PO) FOLLOWED BY REHAB AT [facility] AND [facility] WITH D/C HOME EARLY MARCH 2019 THEN WENT TO OUT-PATIENT THERAPY IN [place] UNTIL ABOUT 4-5 WEEKS AGO. PATIENT REPORTS HE WAS IMPROVING WITH PT IN TERMS OF WALKING, BALANCE, STAIRS AND LE STRENGTH. 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 HAS BEEN OFF WORK SINCE DEC 27 2018. HOPING TO GO BACK TO WORK FOR [employer] IN OUT-PATIENT POSITION. NO TENTATIVE RTW DATE THAT PATIENT IS AWARE OF BUT STATES HE IS WRITTEN OFF WORK TIL SOMETIME IN AUGUST. 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 Present symptoms: LOW BACK STIFFNESS AND DIFFICULTY WALKING THAT GETS BETTER WITH SITTING. NO PAIN PER SAY. Present since: YEARS WITH FLARE UP DEC 27 2018. Pain Scale: N/A. Currently: N/A. Commenced as a result of: GRADUAL THING OVER TIME. FALL AT WORK DEC 27 2018. Symptoms at onset: TIGHTNESS IN BACK. Worse: STANDING AND WALKING. Better: SITTING. Disturbed sleep: NO. Previous history/Previous treatment: PHYSICAL THERAPY AT [facility] AND HERE AT [facility] IN THE PAST. NO CHIROPRACTOR. NO KEHINDE'S. Coughing/sneezing/straining: N/A. Gait: SLOW AND STIFF. DISTANCE LIMITED. TIME LIMITED. Difficulty initiating urinatin: NO. Accidents: NO OHTERS. Unexplained weight loss: NO. Imaging: THORACIC X-RAY ABOUT 2 WEEKS AGO SHOWING GOOD HEALING PER PATIENT REPORT. PMH: DOUBLE BYPASS 1998, PROSTATE CANCER 2011, 2013 GALLBLADDER REMOVAL. SINUS SURGERIES. PLOF (Prior Level of Function): ABLE TO WALK AND STAND BETTER AND LONGER BEFORE THE FALL. OTHER: PATIENT REPORTS HE DOESN'T HAVE ANY RESTRICTIONS. STATED DR. MADISON TOLD HIM ABOUT 2 WEEKS AGO THAT HE CAN DO WHATEVER HE WANTS NOW BUT TO LISTEN TO THE PAIN IF HE GETS ANY. PATIENT REPORTS HE FEELS LIKE HE COULD HAVE BEEN BACK TO WORK BY NOW IF IT WEREN'T FOR WORKERS COMPENSATION DELAY'S. PATIENT ALSO REPORTS THAT SINCE THIS HAS HAPPENED HIS ALSO LEFT HIM. PATIENT HAD MULTIPLE INJURIES IN THE FALL. - Objective Sitting/Standing Posture: POOR. Lordosis: REDUCED. Lateral shift: NO. Relevant shift: N/A. Active Correction of posture: NE. Other Observations: INDEP GAIT INTO PT WITHOUT ANY ASSISTIVE DEVICES WITH SLOW STIFF GAIT PATTERN. DECREASED THELMA LE STRIDE LENGTH AND INCREASED TRUNK FLEXION. Motor deficit: Sensory deficit: ROM deficit: Reflexes: Dural Signs: Lumbar mvmt loss: flex -. ext -. R SG -. L SG -. THORACIC MVMT LOSS: FLEX. EXT. RIGHT ROT. LEFT ROT. Core strength: Palpation: - Goals Goal 1:: DECREASE C/O BACK STIFFNESS Goal Time Frame: 4-6 Weeks Goal 2:: IMPROVE LIFTING, WALKING, STANDING, WORK AND RECREATIONAL FUNCTION. Goal Time Frame: 4-6 Weeks Goal 3:: INSTRUCT IN PROPHYLAXIS Goal Time Frame: 4-6 Weeks - Rehabilitation Potential Rehabilitation Potential: Fair - Anticipated Interventions Patient/Client Instruction: Educate patient on: Condition, Plan of Care, Risk Factors, Benefits of Fitness Program For the Purpose of:: To improve self management Therapeutic Exercise to Include: Strength training, Body mechanics, Postural training, Flexibilty training, Gait and locomotor training, In an aquatic setting, Dynamic Lumbar Stabilization For the Purpose of:: To decrease pain, To increase ROM, To improve muscle performance and motor function, To increase tolerance to activity/condition/position, To improve ability of physical actions for home/community/work/leisure, To improve gait and locomotor functions Thank you for the opportunity to evaluate your patient. For Medicare and Medicare HMO plans, please review the plan of care and approve it. It will need to be FAXED BACK to us at [phone] for Medicare purposes. For Medicare only, by signing this I certify the plan of care. Please let me know if there are questions or concerns regarding this plan of care. Physician Signature: Date:
--- NOTE | 2019-07-12 10:59 | HP.PTREVAL ---
David Zacarias MD, It has been my pleasure to treat MEENAKSHI NI over the last 2 visits for CLOSED UNSTABLE BURST FX THORACIC SPINE. Please see the progress note below for an update on the physical therapy plan of care! Subjective: PATIENT REPORTS HIS STRENGTH AND MOBILITY HAS BEEN CONTINUING TO IMPROVE VERY SLOWLY. PATIENT REPORTS HE HAS NOT BEEN ABLE TO COME DUE TO DIAHREA BUT HAS BEEN ON C-DIF MEDS FOR 2 WEEKS NOW AND NO LONGER HAS DIAHREA. EDDIE'T WITH DR. PETER THURSDAY. PATIENT REPORTS HE HAS BEEN GETTING OUT AND WALKING TO GET HIS STRENGTH UP. STATES HE IS WALKING ABOUT 80 FEET AT A TIME BUT IT IS DIFFICULT. ABOUT 100 [address] TO HIS CAR. MANAGING STEPS IN AND OUT OF APPARTMENT OK. PATIENT STILL DENIES PAIN - HAS STIFFNESS AND TIGHTNESS. THE STIFFNESS PULLS HIM FORWARD. PATIENT REPORTS HE IS STILL FIGHTING AGAINST GETTING PULLED TO THE RIGHT. PATIENT REPORTS HE HAS NOT BEEN DOING ANY HOME EXERCISE OTHER THAN WALKING. Objective/Function: UPON EXAM TODAY THERE ARE NO SIGNIFICANT CHANGES SINCE INITIAL EVAL EXCEPT PATIENT APPEARS TO BE LEANING FORWARD AND TO THE RIGHT. PATIENT DEMONSTRATED AND COMMUNICATED A GOOD UNDERSTANDING OF ALL INSTRUCTIONS GIVEN. TODAY: Sitting/Standing Posture: POOR. Lordosis: REDUCED. Lateral shift: RIGHT. Relevant shift: YES. Active Correction of posture: NE. Other Observations: INDEP GAIT INTO PT WITHOUT ANY ASSISTIVE DEVICES WITH SLOW STIFF GAIT PATTERN. DECREASED THELMA LE STRIDE LENGTH AND INCREASED TRUNK FLEXION. LEANING FORWARD TO THE RIGHT. Motor deficit: THELMA LE'S GROSSLY 5/5 WITH MMT'ING EXCEPT RIGHT HIP GRADED 4-/5 AND LEFT 4/5. ROM deficit: TIGHT THELMA HS'S AND GASTROC SOLEUS COMPLEX'S. Dural Signs: NEGATIVE THELMA LE'S. Lumbar mvmt loss: flex - MOD. ext - CHARISSE. R SG - MOD. L SG - CHARISSE. THORACIC MVMT LOSS: FLEX - MOD. EXT - CHARISSE. RIGHT ROT - MOD. LEFT ROT - CHARISSE. Core strength: POOR. Palpation: LONG WELL HEALED BACK INCSION. NO ACUTE THORACIC OR LUMBAR TENDERNESS. Plan Plan: AQUATIC THERAPY (PATIENT TO DISCUSS C-DIF WITH DR. PETER TODAY) AND LAND THERAPY FOR PAIN RELEIF, POSTURE CORRECTION/STRENGTHENING, INSTRUCTION IN APPROPRIATE BODY MECHANICS AND ACTIVITY MODIFICATIONS. DLS STARTING WITH A NEUTRAL SPINE PROGRESSING ROM TOLERATED. THELMA LE ROM, STRETCHING AND STRENGTHENING. HEP INSTRUCTION. Goals Goal 1:: DECREASE C/O BACK STIFFNESS Goal Time Frame: 4-6 Weeks Goal 2:: IMPROVE LIFTING, WALKING, STANDING, WORK AND RECREATIONAL FUNCTION. Goal Time Frame: 4-6 Weeks Goal 3:: INSTRUCT IN PROPHYLAXIS Goal Time Frame: 4-6 Weeks Anticipated Interventions Patient/Client Instruction: Educate patient on: Condition, Plan of Care, Risk Factors, Benefits of Fitness Program For the Purpose of:: To improve self management Therapeutic Exercise to Include: Strength training, Body mechanics, Postural training, Flexibilty training, Gait and locomotor training, In an aquatic setting, Dynamic Lumbar Stabilization For the Purpose of:: To decrease pain, To increase ROM, To improve muscle performance and motor function, To increase tolerance to activity/condition/position, To improve ability of physical actions for home/community/work/leisure, To improve gait and locomotor functions Please do not hesitate to contact me at [phone] by phone or if you have questions or concerns regarding this new plan of care! Sincerely, Kathy Farrell, PT, Cert MDT
--- NOTE | 2019-08-03 18:56 | HP.PTREVAL_ITS ---
David Zacarias MD, It has been my pleasure to treat MEENAKSHI NI over the last 10 visits for CLOSED UNSTABLE BURST FX THORACIC SPINE. Please see the progress note below for an update on the physical therapy plan of care! Subjective: Pt reports that he is better and that he was able to walk back to the treatment area today without having to stop multiple times. Objective/Function: Sit to stand: able to get up without the use of his UE's. Gait: pt walks back to the dept with flexed trunk and decreased heel to toe gait pattern and shortened stride. Pt admits that his stiffnes in hisback has improved some. Plan Plan: Continue with current AT treatment. *To inform this COMPUTER HARDWARE DESIGNER if diarrhea returns. *Jet I before next RX if able to Goals Goal 1:: DECREASE C/O BACK STIFFNESS Goal Time Frame: 4-6 Weeks Goal Progress: Progressing Goal 2:: IMPROVE LIFTING, WALKING, STANDING, WORK AND RECREATIONAL FUNCTION. Goal Time Frame: 4-6 Weeks Goal Progress: Progressing Goal 3:: INSTRUCT IN PROPHYLAXIS Goal Time Frame: 4-6 Weeks Anticipated Interventions Patient/Client Instruction: Educate patient on: Condition, Plan of Care, Risk Factors, Benefits of Fitness Program For the Purpose of:: To improve self management Therapeutic Exercise to Include: Strength training, Body mechanics, Postural training, Flexibilty training, Gait and locomotor training, In an aquatic setti ng, Dynamic Lumbar Stabilization For the Purpose of:: To decrease pain, To increase ROM, To improve muscle performance and motor function, To increase tolerance to activity/c ondition/position, To improve ability of physical actions for home/community/work/leisure, To improve gait and locomotor functions Please do not hesitate to contact me at [phone] by phone or if you have questions or concerns regarding this new plan of care! Sincerely, Florinda Rodriges, MPT
--- NOTE | 2019-08-26 12:56 | HP.PTREVAL_ITS ---
David Madison MD, It has been my pleasure to treat MEENAKSHI NI over the last 18 visits for CLOSED UNSTABLE BURST FX THORACIC SPINE. Please see the progress note below for an update on the physical therapy plan of care! Subjective: PATIENT REPORTS HE HAS A FOLLOW UP EDDIE'T PENDING WITH DR. MADISON THURSDAY. 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 STATES HE JUST FOUND OUT TODAY. PATIENT REPORTS THERAPY IS HELPING HIS LEG STRENGTH AND HIS ABILITY TO WALK. Objective/Function: PATIENT IS MAKING SLOW PROGRESS IN THERAPY IN TERMS OF LOWER BODY STRENGTH AND GAIT BUT HIS LUMBAR EXT ROM AND LEFT SG ROM HAVE DECREASED SINCE INITIAL EVAL. UPON EXAM TODAY, FINDINGS ARE FOLLOWS: Sitting/Standing Posture: POOR. Lordosis: REDUCED. Lateral shift: RIGHT. Active Correction of posture: NE. PATIENT ONLY ABLE TO PARTIALLY CORRECT. Other Observations: INDEP GAIT INTO PT WITHOUT ANY ASSISTIVE DEVICES WITH STIFF GAIT PATTERN BUT IMPROVED CADANCE AND STRIDE LENGTH COMPARED TO INITIAL EVAL. THORACIC SPINE IS PRETTY RIGID ALL PLANES. Motor deficit: THELMA LE'S GROSSLY 5/5 WITH MMT'ING EXEPT RIGHT HIP 4/5. ROM deficit: TIGHT THELMA HS'S AND GASTROC SOLEUS COMPLEX'S. Dural Signs: NEGATIVE THELMA LE'S. Lumbar mvmt loss: flex - MOD. ext - CHARISSE. R SG - MOD. L SG - MOD. THORACIC MVMT LOSS: FLEX - MOD. EXT - CHARISSE. RIGHT ROT - MOD. LEFT ROT - CHARISSE. Core strength: POOR BUT TOLERATING EX PROGRESSION IN THE POOL. Palpation: LONG WELL HEALED BACK INCSION. NO ACUTE THORACIC OR LUMBAR TENDERNESS. Plan Plan: WOULD RECOMMEND CONTINUE AQUATIC THERAPY AT THIS TIME WORKING TOWARD SAME GOALS AND PROGRESSING TO LAND THERAPY WHEN APPROPRIATE. PATIENT IS AGREEABLE TO THIS POC. Goals Goal 1:: DECREASE C/O BACK STIFFNESS Goal Time Frame: 4-6 Weeks Goal Progress: Progressing Goal 2:: IMPROVE LIFTING, WALKING, STANDING, WORK AND RECREATIONAL FUNCTION. Goal Time Frame: 4-6 Weeks Goal Progress: Progressing Goal 3:: INSTRUCT IN PROPHYLAXIS Goal Time Frame: 4-6 Weeks Anticipated Interventions Patient/Client Instruction: Educate patient on: Condition, Plan of Care, Risk Factors, Benefits of Fitness Program For the Purpose of:: To improve self management Therapeutic Exercise to Include: Strength training, Body mechanics, Postural training, Flexibilty training, Gait and locomotor training, In an aquatic setting, Dynamic Lumbar Stabilization For the Purpose of:: To decrease pain, To increase ROM, To improve muscle performance and motor function, To increase tolerance to activity/condition/position, To improve ability of physical actions for home/community/work/leisure, To improve gait and locomotor functions Please do not hesitate to contact me at [phone] by phone or if you have questions or concerns regarding this new plan of care! Sincerely, Kathy Farrell, PT, Cert MDT
--- NOTE | 2019-10-21 12:57 | HP.PTREVAL_ITS ---
David Madison MD, It has been my pleasure to treat MEENAKSHI NI over the last 25 visits for CLOSED UNSTABLE BURST FX THORACIC SPINE. Please see the progress note below for an update on the physical therapy plan of care! Subjective: PATIENT REPORTS HE THINKS HE IS WALKING A LITTLE BETTER AND HIS LEGS ARE GETTING STRONGER. EVEN FEELS HIS BACK IS A LITTLE STRONGER BUT HIS STAMINA IS BAD. STATES HE HAS BEEN MORE MOTIVED TO DO HIS HEP THAN HE WAS IN THE PAST. STATES HIS BACK FEELS TIGHT WITH WALKING BUT NOT PAINFUL. SITTING DOWN HELPS. REPORTS HE HAS SOME RIGHT FOOT PAIN THAT HE RELATES TO NEUROPATHY. IT COMES AND GOES AND STATES HE HAD IT BEFORE THE ACCIDENT TOO. STATES HE IS NOT BACK TO WORK. STATES HE IS STILL ON DISABILITY UNTIL NOV 30 2019. STATES HE AND THE NURSE AND W/C DOCTOR TALKED ABOUT TRYING LAND THERAPY WHICH HE WOULD LIKE TO DO. PATIENT REPORTS HIS OCCULARMYESTHENIA IS FLARED UP RIGHT NOW. SAW DR ARCHER [place] THIS YEAR FOR HIS NECK. NECK SURGERY RECOMMENDED AND PATIENT PLANS TO DO THIS SOON POSSIBLE. STRESS ECHO YESTERDAY - SEEMED TO GO OK. HAS HELP AT HOME WITH WASHING AND COOKING AND DECORATING. PLANS TO GET A FOLLOW UP APPT WITH DR. MADISON SOON POSSIBLE. PATIENT REPORTS HIS DOCTOR IN [facility] OCCUPATIONAL THERAPY FOR HIS HANDS. Objective/Function: OVER-ALL PATIENT DOES NOT APPEAR TO BE MAKING PROGRESS WITH THERAPY. WE CAN TRY TO TRANSITION TO SOME LAND BASED CORE AND LE STRENGTHENING PATIENT REQUESTED BUT HE IS ONLY A POOR TO FAIR CANDIDATE FOR THIS AND PHYSICIAN RE-CHECK RECOMMENDED. UPON EXAM TODAY: PATIENT DEMONSTRATES INDEP GAIT INTO PT WITH INCREASED TRUNK FLEXION. REQUESTING TO SIT DOWN AFTER 150 FEET AND THEN ABLE TO WALK ANOTHER 150 FEET. PATIENT IS ABLE TO TRANSFER INDEP'LY FROM SIT TO STAND WITHOUT UE ASSIST BUT IT IS DIFFICULT. Sitting/Standing Posture: POOR. Lordosis: REDUCED. Lateral shift: RIGHT. Active Correction of posture: NE. PATIENT ONLY ABLE TO PARTIALLY CORRECT AND ABLE TO CORRECT BETTER SOMETIMES COMPARED TO OTHERS. Other Observations: INDEP GAIT INTO PT WITHOUT ANY ASSISTIVE DEVICES WITH STIFF GAIT PATTERN AND SHUFFLE TYPE GAIT PATTERN. THORACIC SPINE IS PRETTY RIGID ALL PLANES. Motor deficit: INCREASED WEAKNESS SEEN WITH MMT'ING OF LE TODAY. THELMA HIPS 4-/5, QUADS 4/5, KNEE FLEX 5/5 AND ANKLE DORSIFLEX 5/5. ROM deficit: TIGHT THELMA HS'S AND GASTROC SOLEUS COMPLEX'S. Dural Signs: NEGATIVE THELMA LE'S. Lumbar mvmt loss: flex - MOD. ext - CHARISSE. R SG - MOD. L SG - MOD. THORACIC MVMT LOSS: FLEX - MOD. EXT - CHARISSE. RIGHT ROT - MOD. LEFT ROT - CHARISSE. Core strength: POOR AND NOT PROGRESSING AT THIS POINT. LUMBAR OSWESTRY SCORE HAS IMPROVED FROM 20 AT LAST RE-CHECK TO 16 TODAY HOWEVER THIS IS STILL WORSE THAN THE 13 SCORED AT INITIAL EVAL JUN 17 2019. Plan Plan: TRIAL OF LAND BASED THREAPY FOR POSTURE CORRECTION/STRENGTHENING, I NSTRUCTION IN APPROPRIATE BODY MECHANICS. DLS STARTING WITH A NEUTRAL SPINE PROGRESSING ROM TOLERATED. THELMA LE ROM, STRETCHING AND STRENGTHENING. HEP INSTRUCTION. Goals Goal 1:: DECREASE C/O BACK STIFFNESS Goal Time Frame: 4-6 Weeks Goal Progress: Not Progressing Goal 2:: IMPROVE LIFTING, WALKING, STANDING, WORK AND RECREATIONAL FUNCTION. Goal Time Frame: 4-6 Weeks Goal Progress: Not Progressing Goal 3:: INSTRUCT IN PROPHYLAXIS Goal Time Frame: 4-6 Weeks Goal Progress: Not Progressing Anticipated Interventions Patient/Client Instruction: Educate patient on: Condition, Plan of Care, Risk Factors, Benefits of Fitness Program For the Purpose of:: To improve self management Therapeutic Exercise to Include: Strength training, Body mechanics, Postural training, Flexibilty training, Gait and locomotor training, In an aquatic setting, Dynamic Lumbar Stabilization For the Purpose of:: To decrease pain, To increase ROM, To improve muscle performance and motor function, To increase tolerance to activity/condition/position, To improve ability of physical actions for home/community/work/leisure, To improve gait and locomotor functions Please do not hesitate to contact me at [phone] by phone or if you have questions or concerns regarding this new plan of care! Sincerely, Kathy Farrell, PT, Cert MDT
--- NOTE | 2019-10-27 13:01 | HP.OTEVAL_ITS ---
Patient's Visit Information MEENAKSHI NI is a 74 year old M, referred to Occupational Therapy by David Zacarias MD, with a diagnosis of Clased unstable burst of thoracic vertebra due to fall S22.002D. Date of Evaluation: 10/27/19 Occupational Therapist: Zara Swan, OTR/L - Subjective Subjective: Jaime (Jim) arrived independently to appointment and noted mechanical fall at work would stairs. He noted he suffered T9 fracture and brain related injuries. He noted some blood on brain which was able to be removed and he is living back (I) at home with daily help from friend who is home health aide. He noted fall occured in December of 2018. He noted that during fall your head went through the dry wall. He noted that bilateral shoulder pain and some hand tingling has started to occur since accident. Further images to occur on cervical spine. - ADLs Dressing: Button shirt, Pants, Socks, Shoes Fasteners: Tie shoes, Buttons, Zippers Eating: Use silverware, Cut food Bathing: Handle washcloth & soap Comments: hand shower chair, can washa ll but back. 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 Miscellaneous: Start car, Handle money (change), Hold change, Take things out of wallet, Open envelope, Write, Turn pages in book, Take DVD out of case & insert in player Comments: Noted has to compensate with nondominant L hand; Pt. is R hand dominant. Noted he has a home health aides friend that helps about 20 hours a week. 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 He noted that his goal is to return to work at [employer] in [facility] [facility]. - Pain BUE 1 Pain Intensity Range: 0, 1, 4 - ROM Shoulder: flexion R 0-93,L 0-110;ext R 0-37, L 0-37; abd R 0-118, L 0-133 Elbow: Flexion R 0-130, L 0-130 Forearm: WFL Wrist: ext passive R 0-19, AROM R -30-0-10- unable to hold;sporatic mvmt; L WFL MP: R 0-43; L WFL IP: R 0-49, L WFL MP: R 2nd 0-22 ,3rd 0-34 ,4th 0-24 ,5th 0-36 , L WFL PIP: R (AAROM for gravity assisted)2nd 0-51 ,3rd 0-45,4th 0-80 ,5th 0-50; L WFL DIP: R L WFL ROM Comments: L wrist ext 0-30. From L wrist to hand Benji has minimal functional movement. He uses compensatory movements to promote movement. He exhibit lack of intended and control fo R hand. - Strength Dairy Lab Technician: flexed position2 R unable, L 35; ext position 2 R unable, L 25 Lateral Pinch: R unable; L 12 Tripod Pinch: R unable; L 5 Tip-to-Tip Pinch: R unable; L 6 - Sensation Thumb: R 3.22, . 4.08 Index: R 2.83, L 3.22 Middle: R 2.83, L 3.22 Ring: R 2.83, L 2.83 Little: R 2.83, L 3.61 Kinesthesia: Normal - Right, Abnormal - Right, Normal - Left - Cognitive Skills Cognitive Comments: MoCA: . - Attention Attention: Normal - Quick DASH-Disab of Arm,Shoulder& Hand Quick DASH Score: 71.6650 - Goals Goal:: Benji to increased B tie inspector strength by 15-20 lbs to promote fx graps of R hand and to promote continued strength of L hand for ADL/AIdls by d/c. Goal:: Benji to be able to complete full composite fist of R hand to promote increased ROM to promote returning to PLOF 4/5 trials 80% of the time by d/c. Goal:: Benji to complete BUE strength and ROM to manage pain to promote increased ability to complete PLOF by d/c. Goal:: Benji to be able to complete picking up self care items and using with R hand to promote increased functional ROM needed to return to PLOF by d/c. Goal:: Benji to be (I) to complete all ADL/IADLS with no compensations 4/5 trials 80% of the time by d/c. Goal:: Benji to completed daily HEP to promote increased ROM and strength 4/5 trials 80% of the time by d/c. Goal:: Benji be able to complete typing simple 5-6 sentence paragraph to promote increased ROM of B hands and increased exterity of B hands needed to return to PLOF and work related tasks by d/c. - Rehabilitation General Assessment: Meenakshi' Benji' completed OT evaluation on this date of 10/27/19. He is s/p mechanical fall resulting in vertebra fracture at thoracic level. He noted that he did have ORIF completed to T-spine but unsure of all that was completed. He noted he will be having further cervical spine imaging completed. Generally, Benji exhibit increased weakness, ROM, and general endurance to complete ADL/IADLS. Skilled Ot warranted to promote increased return to PLOF and (I) for ADL/IAdls including work. Rehabilitation Potential: Good - Anticipated Interventions Anticipated Interventions: A/AAROM/PROM, Strengthening, Edema Control, Scar Care, Massage, Sensory Retraining, Modalities, Orthoses, Joint Protection/Energy Conservation, Ergonomic Education, Dynamic Sitting Balance, Fine Motor Coord/Deshaun, Cognitive Skills, ADL Training, Caregiver Training, Home Program Other Interventions: work-based activities; FES to promote returning ROM. - Visit Plan Frequency: 2-3 Duration: 6 Weeks General Plan: Meenakshi to promote regaining ROM, strength, and returning to ADL/IADLS to return to PLOF. TEXT: Thank you for the opportunity to evaluate your patient. For Medicare and Medicare HMO plans, please review the plan of care and approve it. It will need to be FAXED BACK to us at [phone] for Medicare purposes. Please let me know if there are questions or concerns regarding this plan of care. Physician Signature: D ate:
--- NOTE | 2019-11-25 12:33 | HP.PTREVAL ---
David Madison MD, It has been my pleasure to treat MEENAKSHI NI over the last 28 visits for CLOSED UNSTABLE BURST FX THORACIC SPINE. Please see the progress note below for an update on the physical therapy plan of care! Subjective: PATIENT REPORTS HE GETS TO THE POINT RATHER QUICKLY THAT HE JUST CAN'T GO ANY FURTHER. IF THERE ISN'T A CHAIR HE LEANS UP AGAINST THE WALL. HE REPORTS IT IS MOSTLY HIS BACK TIGHTENING UP THAT STOPS HIM BUT HE ALSO GETS SHORT OF BREATH. HE REPORTS HE HAD A SLEEP STUDY AND IT TURNED OUT OK. USES A CPAP. ALSO HAD A STRESS ECHO AND HE REPORTS THAT WAS OK TOO. HE REPORTS HIS TAILBONE PAIN COMES AND GOES. HIS BACK PAIN COMES AND GOES TOO AND IT MOSTLY TIGHTENS UP WITH WALKING. PATIENT REPORTS HE HAS STAYED ABOUT THE SAME OVER THE LAST MONTH. FOLLOW UP PENDING WITH DR. MADISON FOR BURST FX DEC 08 2019. Objective/Function: PATIENT WAS SEEN TODAY FOR RE-ASSESSMENT OF PROGRESS TOWARD THE SET PT GOALS AND THE NEED FOR FURTHER PHYSICAL THERAPY VS READINESS FOR DISCHARGE. OVER-ALL PATIENT STILL DOES NOT APPEAR TO BE MAKING PROGRESS WITH THERAPY. HIS PT SINCE LAST RE-CHECK HAS BEEN AQUATIC THERAPY. UPON EXAM TODAY: PATIENT DEMONSTRATES INDEP GAIT INTO PT WITH INCREASED TRUNK FLEXION. REQUESTING TO SIT DOWN AGAIN AFTER APPROX 150 FEET AND THEN ABLE TO WALK ANOTHER 150 FEET. PATIENT IS ABLE TO TRANSFER INDEP'LY FROM SIT TO STAND WITHOUT UE ASSIST BUT IT IS DIFFICULT. Sitting/Standing Posture: POOR. Lordosis: REDUCED. Lateral shift: RIGHT. Active Correction of posture: NE. PATIENT ONLY ABLE TO PARTIALLY CORRECT AND ABLE TO CORRECT BETTER SOMETIMES COMPARED TO OTHERS. Other Observations: INDEP GAIT INTO PT WITHOUT ANY ASSISTIVE DEVICES WITH STIFF GAIT PATTERN AND SHUFFLE TYPE GAIT PATTERN. THORACIC SPINE IS PRETTY RIGID ALL PLANES. Motor deficit: WEAKNESS SEEN WITH MMT'ING OF LE. THELMA HIPS 4-/5, QUADS 4/5, KNEE FLEX 5/5 AND ANKLE DORSIFLEX 5/5. ROM deficit: TIGHT THELMA HS'S AND GASTROC SOLEUS COMPLEX'S. Dural Signs: NEGATIVE THELMA LE'S. Lumbar mvmt loss: flex - MOD. ext - CHARISSE. R SG - MOD. L SG - MOD. THORACIC MVMT LOSS: FLEX - MOD. EXT - CHARISSE. RIGHT ROT - MOD. LEFT ROT - CHARISSE. Core strength: POOR AND NOT PROGRESSING AT THIS POINT. Plan Plan: HOLD CHART PENDING FOLLOW UP WITH DR. MADISON DEC 08 2019. Goals Goal 1:: DECREASE C/O BACK STIFFNESS Goal Time Frame: 4-6 Weeks Goal Progress: Not Progressing Goal 2:: IMPROVE LIFTING, WALKING, STANDING, WORK AND RECREATIONAL FUNCTION. Goal Time Frame: 4-6 Weeks Goal Progress: Not Progressing Goal 3:: INSTRUCT IN PROPHYLAXIS Goal Time Frame: 4-6 Weeks Goal Progress: Not Progressing Anticipated Interventions Patient/Client Instruction: Educate patient on: Condition, Plan of Care, Risk Factors, Benefits of Fitness Program For the Purpose of:: To improve self management Therapeutic Exercise to Include: Strength training, Body mechanics, Postural training, Flexibilty training, Gait and locomotor training, In an aquatic setting, Dynamic Lumbar Stabilization For the Purpose of:: To decrease pain, To increase ROM, To improve muscle performance and motor function, To increase tolerance to activity/condition/position, To improve ability of physical actions for home/community/work/leisure, To improve gait and locomotor functions Please do not hesitate to contact me at [phone] by phone or if you have questions or concerns regarding this new plan of care! Sincerely, Kathy Farrell, PT, Cert MDT
--- NOTE | 2019-12-20 09:33 | HP.OT.NRP ---
HP - Discharge Summary - Patient Information MEENAKSHI NI was seen in my office for initial evaluation on 10/27/19. The following Plan of Care was established for this patient: Initial Frequency: 2-3 Initial Duration: 6 Weeks Plan: Continue POC. Continue with PRE, ADL/IADls simulation and training, and general ability to return to PLOF with RUE. - Anticipated Interventions Anticipated Interventions: A/AAROM/PROM, Strengthening, Edema Control, Scar Care, Massage, Sensory Retraining, Modalities, Orthoses, Joint Protection/Energy Conservation, Ergonomic Education, Dynamic Sitting Balance, Fine Motor Coord/Deshaun, Cognitive Skills, ADL Training, Caregiver Training, Home Program Other Interventions: work-based activities; FES to promote returning ROM. This patient was last seen in our office 11/17/19. Pertinent comments regarding their Occupational therapy will appear below: Called Benji for further follow up as he had canceled last two appointments due to sickness. Left message to return call for further follow up or to discharge. No call received and discharge initiated. At this point I will be discontinuing this patient from occupational therapy. I would be happy to see this patient again in the future if found appropriate by the physician. Thank you! Zara Swan, OTR/L
--- NOTE | 2020-01-12 13:09 | HP.PTDCNRP_ITS ---
HP - Discharge Summary (1) - Patient Information MEENAKSHI NI was seen in my office for initial evaluation on 06/17/19. The following Plan of Care was established for this patient: Initial Frequency: 3x /Week Initial Duration: 6 Weeks - Anticipated Interventions Patient/Client Instruction: Educate patient on: Condition, Plan of Care, Risk Factors, Benefits of Fitness Program For the Purpose of:: To improve self management Therapeutic Exercise to Include: Strength training, Body mechanics, Postural training, Flexibilty training, Gait and locomotor training, In an aquatic setting, Dynamic Lumbar Stabilization For the Purpose of:: To decrease pain, To increase ROM, To improve muscle performance and motor function, To increase tolerance to activity/conditio n/position, To improve ability of physical actions for home/community/work/leisure, To improve gait and locomotor functions This patient was last seen in our office . Pertinent comments regarding their Physical therapy will appear below: This patient has not returned to Physical Therapy and is appropriate to return to MD for further follow-up as needed. At this point I will be discontinuing this patient from physical therapy. I would be happy to see this patient again in the future if found appropriate by the physician. Thank you! Kathy Farrell, PT, Cert MDT
== END 2019-11-25 17:00 | disposition home or self-care (01) ==
LOC: PT 12:00
PROVIDERS: Family Provider Family Medicine Geriatric Medicine; PCP Family Medicine Geriatric Medicine; Referring Provider Neurological Surgery; Visit Provider Neurological Surgery
DX: S22.002 Unstable burst fracture of unspecified thoracic vertebra (principal)
CPT/HCPCS: 97110; 97113; 97162; 97164; 97166; 97530

== ENCOUNTER → 2019-12-06 17:28 | Outpatient (CLI) | payer MEDICARE, SELFPAY ==
[2019-12-06 21:29] LABS: M R Staph aureus DNA By PCR Negative (Negative); Probe Check PASS; Staph aureus DNA By PCR NEGATIVE (Negative)
== END ==
PROVIDERS: Visit Provider Podiatrist
DX: L60.0 Ingrowing nail (principal)
CPT/HCPCS: 87070; 87075; 87077; 87186; 87205; 87640

== ENCOUNTER → 2019-12-07 08:22 | Outpatient (CLI) | payer MEDICARE, SELFPAY | PROVIDERS: PCP Family Medicine Geriatric Medicine; Referring Provider Podiatrist; Visit Provider Podiatrist | DX: L60.0 Ingrowing nail (principal) ==

== ENCOUNTER 2019-12-15 13:38 | Outpatient (RCR) | payer MEDICARE, SELFPAY ==
[2019-12-15 14:16] LABS: Prothrombin Time (Protime)PT. 22.4 SECONDS (11.7-14.9)
== END 2019-12-15 18:00 | disposition home or self-care (01) ==
LOC: LAB 13:38
PROVIDERS: Family Provider Family Medicine Geriatric Medicine; PCP Family Medicine Geriatric Medicine; Referring Provider Nurse Practitioner Family; Visit Provider Nurse Practitioner Family
DX: Z79.01 Long term (current) use of anticoagulants (principal)
CPT/HCPCS: 36415; 85610

== ENCOUNTER → 2019-12-20 14:56 | Outpatient (CLI) | payer MEDICARE, SELFPAY ==
[2019-12-20 17:24] LABS: Absolute Lymphocyte Count 1.01 X10^3/uL (0.83-4.51); Absolute Neutrophil Count 5.1 X10^3/uL (2.0-7.7); Basophil# 0.02 X10^3/uL; Basophil% 0.3 % (0-1); Eosinophil# 0.11 X10^3/uL; Eosinophils% 1.6 % (0-5); Hematocrit 39.3 % (40-54); Hemoglobin 12.8 g/dL (13.0-16.5); Lymphocyte # 1.01 X10^3/ul (4.0); Lymphocyte % 15.1 % (19-41); Mean Corp Hgb Conc 32.6 g/dL (32-36); Mean Corpuscular Hgb 27.9 pg (27.0-32.0); Mean Corpuscular Volume 85.8 fL (80-94); Mean Platelet Vol. 9.5 fl (6.2-12.0); Monocyte# 0.46 X10^3/uL; Monocyte% 6.9 % (0-10); NRBC Flagged by Analyzer 0 % (0-5); Neutrophil # 5.05 X10^3/uL (2.7-7.7); Neutrophil % 75.8 % (47-70); Platelet Count 130 K/mm3 (150-450); RBC Distribution Width CV 13.5 % (11.6-14.6); RBC Distribution Width SD 41.9 fl (35.1-43.9); Red Blood Count 4.58 M/mm3 (4.6-6.2); White Blood Count 6.7 K/mm3 (4.4-11.0)
[2019-12-20 17:46] LABS: ALB/GLOB Ratio 0.9 RATIO (0.9-2.4); AST(SGOT) 27 U/L (15-37); Alanine Aminotransfer ALT/SGPT 46 U/L (16-61); Albumin, Serum 3.3 g/dL (3.2-5.0); Alkaline Phosphatase 111 U/L (45-117); BUN 17 mg/dL (7-18); BUN/Creat Ratio 19.2 RATIO (10-20); Calcium,Total 9.1 mg/dL (8.5-10.1); Chloride 107 mmol/L (98-107); Creatinine, Serum 0.89 mg/dL (0.70-1.30); EST Glomerular Filtration Rate 90 mL/min (>60); Est Glom Filt Rate - Afr Amer 109 mL/min (>60); Globulin 3.6 g/dL (2.2-4.2); Glucose 90 mg/dL (74-106); Potassium 4.5 mmol/L (3.5-5.1); Protein, Total 6.9 g/dL (6.4-8.2); Sodium Level 141 mmol/L (136-145)
[2019-12-20 17:47] LABS: Anion Gap 1 (5-15); Thyroid Stim Hormone (TSH) 2.07 uIU/mL (0.358-3.74)
== END ==
PROVIDERS: PCP Family Medicine Geriatric Medicine; Visit Provider Family Medicine Geriatric Medicine
DX: I10 Essential (primary) hypertension (principal); E55.9 Vitamin D deficiency, unspecified; F52.8 Other sexual dysfunction not due to a substance or known physiological condition
CPT/HCPCS: 36415; 80053; 82306; 84403; 84443; 85025

== ENCOUNTER → 2020-01-04 14:03 | Outpatient (CLI) | payer MEDICARE, SELFPAY ==
[2020-01-04 16:58] LABS: Absolute Lymphocyte Count 0.96 X10^3/uL (0.83-4.51); Absolute Neutrophil Count 4.1 X10^3/uL (2.0-7.7); Basophil# 0.03 X10^3/uL; Basophil% 0.5 % (0-1); Eosinophil# 0.14 X10^3/uL; Eosinophils% 2.4 % (0-5); Hematocrit 40.4 % (40-54); Hemoglobin 12.7 g/dL (13.0-16.5); Lymphocyte # 0.96 X10^3/ul (4.0); Lymphocyte % 16.8 % (19-41); Mean Corp Hgb Conc 31.4 g/dL (32-36); Mean Corpuscular Hgb 27.5 pg (27.0-32.0); Mean Corpuscular Volume 87.4 fL (80-94); Mean Platelet Vol. 9.2 fl (6.2-12.0); Monocyte# 0.46 X10^3/uL; NRBC Flagged by Analyzer 0 % (0-5); Neutrophil # 4.12 X10^3/uL (2.7-7.7); Platelet Count 131 K/mm3 (150-450); RBC Distribution Width CV 13.6 % (11.6-14.6); RBC Distribution Width SD 43.6 fl (35.1-43.9); Red Blood Count 4.62 M/mm3 (4.6-6.2); White Blood Count 5.7 K/mm3 (4.4-11.0)
[2020-01-04 17:02] LABS: Anion Gap 2 (5-15); BUN 21 mg/dL (7-18); BUN/Creat Ratio 24.7 RATIO (10-20); Calcium,Total 8.7 mg/dL (8.5-10.1); Chloride 108 mmol/L (98-107); Creatinine, Serum 0.85 mg/dL (0.70-1.30); EST Glomerular Filtration Rate 94 mL/min (>60); Est Glom Filt Rate - Afr Amer 114 mL/min (>60); Glucose 88 mg/dL (74-106); Potassium 4.4 mmol/L (3.5-5.1); Sodium Level 143 mmol/L (136-145)
[2020-01-04 17:15] LABS: Prothrombin Time (Protime)PT. 22.9 SECONDS (11.7-14.9)
== END ==
PROVIDERS: PCP Family Medicine Geriatric Medicine; Visit Provider Family Medicine Geriatric Medicine
DX: Z01.818 Encounter for other preprocedural examination (principal); Z79.01 Long term (current) use of anticoagulants
CPT/HCPCS: 36415; 80048; 85025; 85610

== ENCOUNTER → 2020-03-19 10:15 | Outpatient (CLI) | payer MEDICARE, SELFPAY ==
[2020-03-19 12:19] LABS: Absolute Lymphocyte Count 0.87 X10^3/uL (0.83-4.51); Absolute Neutrophil Count 4.2 X10^3/uL (2.0-7.7); Basophil# 0.02 X10^3/uL; Basophil% 0.3 % (0-1); Eosinophils% 3.5 % (0-5); Hematocrit 36.9 % (40-54); Hemoglobin 12.2 g/dL (13.0-16.5); Lymphocyte # 0.87 X10^3/ul (4.0); Lymphocyte % 15.2 % (19-41); Mean Corp Hgb Conc 33.1 g/dL (32-36); Mean Corpuscular Hgb 28.9 pg (27.0-32.0); Mean Corpuscular Volume 87.4 fL (80-94); Mean Platelet Vol. 9.6 fl (6.2-12.0); Monocyte# 0.45 X10^3/uL; Monocyte% 7.8 % (0-10); NRBC Flagged by Analyzer 0 % (0-5); Neutrophil # 4.18 X10^3/uL (2.7-7.7); Neutrophil % 72.9 % (47-70); Platelet Count 123 K/mm3 (150-450); RBC Distribution Width CV 13.4 % (11.6-14.6); RBC Distribution Width SD 42.1 fl (35.1-43.9); Red Blood Count 4.22 M/mm3 (4.6-6.2); White Blood Count 5.7 K/mm3 (4.4-11.0)
[2020-03-19 12:52] LABS: ALB/GLOB Ratio 0.8 RATIO (0.9-2.4); AST(SGOT) 24 U/L (15-37); Alanine Aminotransfer ALT/SGPT 36 U/L (16-61); Albumin, Serum 3.2 g/dL (3.2-5.0); Alkaline Phosphatase 124 U/L (45-117); Anion Gap 5 (5-15); BUN 17 mg/dL (7-18); BUN/Creat Ratio 21.5 RATIO (10-20); Chloride 108 mmol/L (98-107); Creatinine, Serum 0.79 mg/dL (0.70-1.30); EST Glomerular Filtration Rate 102 mL/min (>60); Est Glom Filt Rate - Afr Amer 124 mL/min (>60); Globulin 3.9 g/dL (2.2-4.2); Glucose 98 mg/dL (74-106); Potassium 3.8 mmol/L (3.5-5.1); Protein, Total 7.1 g/dL (6.4-8.2); Sodium Level 143 mmol/L (136-145); Thyroid Stim Hormone (TSH) 2.54 uIU/mL (0.358-3.74)
== END ==
PROVIDERS: PCP Family Medicine Geriatric Medicine; Visit Provider Family Medicine Geriatric Medicine
DX: E55.9 Vitamin D deficiency, unspecified (principal); F52.8 Other sexual dysfunction not due to a substance or known physiological condition; I10 Essential (primary) hypertension
CPT/HCPCS: 36415; 80053; 82306; 84403; 84443; 85025

== ENCOUNTER 2020-04-23 14:51 | Outpatient (RCR) | payer MEDICARE, SELFPAY ==
[2020-04-23 16:09] LABS: Prothrombin Time (Protime)PT. 30.7 SECONDS (11.7-14.9)
== END 2020-04-23 18:00 | disposition home or self-care (01) ==
LOC: LAB 14:51
PROVIDERS: Internal Medicine Cardiovascular Disease; Family Provider Family Medicine Geriatric Medicine; PCP Family Medicine Geriatric Medicine; Referring Provider Nurse Practitioner Family; Visit Provider Nurse Practitioner Family
DX: I48.19 Other persistent atrial fibrillation (principal); Z79.01 Long term (current) use of anticoagulants
CPT/HCPCS: 36415; 85610

== ENCOUNTER 2020-06-04 15:23 | Outpatient (RCR) | payer MEDICARE, SELFPAY ==
[2020-05-21 16:59] LABS: Prothrombin Time (Protime)PT. 43.9 SECONDS (11.7-14.9)
[2020-05-21 17:07] LABS: International Normalized Ratio 4.7
[2020-05-24 16:19] LABS: International Normalized Ratio 2.4; Prothrombin Time (Protime)PT. 25.4 SECONDS (11.7-14.9)
[2020-06-04 16:38] LABS: International Normalized Ratio 2.4; Prothrombin Time (Protime)PT. 26.1 SECONDS (11.7-14.9)
== END 2020-06-04 18:00 | disposition home or self-care (01) ==
LOC: LAB 15:23
PROVIDERS: Family Provider Family Medicine Geriatric Medicine; PCP Family Medicine Geriatric Medicine; Referring Provider Internal Medicine Cardiovascular Disease; Visit Provider Internal Medicine Cardiovascular Disease
DX: I48.19 Other persistent atrial fibrillation (principal); Z79.01 Long term (current) use of anticoagulants
CPT/HCPCS: 36415; 85610

== ENCOUNTER → 2020-06-18 11:12 | Outpatient (CLI) | payer MEDICARE, SELFPAY ==
[2019-03-15 11:20] VITALS: BMI 38.3
[2020-06-18 12:33] LABS: Absolute Lymphocyte Count 0.74 X10^3/uL (0.83-4.51); Basophil# 0.02 X10^3/uL; Basophil% 0.4 % (0-1); Eosinophils% 3.8 % (0-5); Hematocrit 36.7 % (40-54); Hemoglobin 11.9 g/dL (13.0-16.5); Lymphocyte # 0.74 X10^3/ul (4.0); Lymphocyte % 14.1 % (19-41); Mean Corp Hgb Conc 32.4 g/dL (32-36); Mean Corpuscular Hgb 28.5 pg (27.0-32.0); Mean Corpuscular Volume 87.8 fL (80-94); Mean Platelet Vol. 9.5 fl (6.2-12.0); Monocyte# 0.31 X10^3/uL; Monocyte% 5.9 % (0-10); NRBC Flagged by Analyzer 0 % (0-5); Neutrophil # 3.95 X10^3/uL (2.7-7.7); Neutrophil % 75.4 % (47-70); Platelet Count 121 K/mm3 (150-450); RBC Distribution Width CV 13.3 % (11.6-14.6); RBC Distribution Width SD 42.8 fl (35.1-43.9); Red Blood Count 4.18 M/mm3 (4.6-6.2); White Blood Count 5.2 K/mm3 (4.4-11.0)
[2020-06-18 12:45] LABS: International Normalized Ratio 2.8; Prothrombin Time (Protime)PT. 28.8 SECONDS (11.7-14.9)
[2020-06-18 12:57] LABS: ALB/GLOB Ratio 0.9 RATIO (0.9-2.4); AST(SGOT) 20 U/L (15-37); Alanine Aminotransfer ALT/SGPT 25 U/L (16-61); Albumin, Serum 3.3 g/dL (3.2-5.0); Alkaline Phosphatase 136 U/L (45-117); Anion Gap 5 (5-15); BUN 17 mg/dL (7-18); BUN/Creat Ratio 22.4 RATIO (10-20); Calcium,Total 8.7 mg/dL (8.5-10.1); Chloride 107 mmol/L (98-107); Creatinine, Serum 0.76 mg/dL (0.70-1.30); EST Glomerular Filtration Rate 107 mL/min (>60); Est Glom Filt Rate - Afr Amer 129 mL/min (>60); Globulin 3.7 g/dL (2.2-4.2); Glucose 124 mg/dL (74-106); Potassium 4.1 mmol/L (3.5-5.1); Sodium Level 143 mmol/L (136-145); Thyroid Stim Hormone (TSH) 2.17 uIU/mL (0.358-3.74)
[2020-06-18 13:12] LABS: Vitamin D,25 Hydroxy 70.8 ng/mL
== END ==
PROVIDERS: Family Provider Family Medicine Geriatric Medicine; PCP Family Medicine Geriatric Medicine; Visit Provider Nurse Practitioner Family
DX: E55.9 Vitamin D deficiency, unspecified (principal); F52.8 Other sexual dysfunction not due to a substance or known physiological condition; I10 Essential (primary) hypertension; Z79.01 Long term (current) use of anticoagulants
CPT/HCPCS: 36415; 80053; 82306; 84403; 84443; 85025; 85610

== ENCOUNTER → 2020-08-17 10:08 | Outpatient (CLI) | payer MEDICARE, SELFPAY ==
[2020-08-17 10:38] LABS: Absolute Lymphocyte Count 0.73 X10^3/uL (0.83-4.51); Basophil# 0.01 X10^3/uL; Basophil% 0.2 % (0-1); Eosinophils% 3.8 % (0-5); Hematocrit 38.7 % (40-54); Hemoglobin 12.3 g/dL (13.0-16.5); Lymphocyte # 0.73 X10^3/ul (4.0); Lymphocyte % 13.9 % (19-41); Mean Corp Hgb Conc 31.8 g/dL (32-36); Mean Corpuscular Hgb 28.2 pg (27.0-32.0); Mean Corpuscular Volume 88.8 fL (80-94); Mean Platelet Vol. 8.8 fl (6.2-12.0); Monocyte# 0.34 X10^3/uL; Monocyte% 6.5 % (0-10); NRBC Flagged by Analyzer 0 % (0-5); Neutrophil # 3.96 X10^3/uL (2.7-7.7); Neutrophil % 75.4 % (47-70); Platelet Count 129 K/mm3 (150-450); RBC Distribution Width CV 13.2 % (11.6-14.6); Red Blood Count 4.36 M/mm3 (4.6-6.2); White Blood Count 5.3 K/mm3 (4.4-11.0)
--- NOTE | 2020-08-17 10:45 | RAD_ITS ---
STUDY: X-RAY - ABDOMEN/PELVIS REASON FOR EXAM: Male, 75 years old. Diarrhea TECHNIQUE: AP supine and upright views of the abdomen and pelvis. COMPARISON: None. FINDINGS: Normal visualized lung bases. Gas in multiple loops small bowel in a nonspecific bowel gas pattern. There is no demonstrated free abdominal air. The visualized liver, spleen and kidneys are grossly normal in size and morphology. Normal soft tissue structures. Normal visualized osseous structures. RAD/Abd Inc Decub and/or Erect IMPRESSION: Nonspecific bowel gas pattern. No pneumoperitoneum. Electronically Signed: Delroy Maxwell MD at 11:06 EDT Tel , Service support ,
[2020-08-17 10:55] LABS: ALB/GLOB Ratio 0.8 RATIO (0.9-2.4); AST(SGOT) 22 U/L (15-37); Alanine Aminotransfer ALT/SGPT 23 U/L (16-61); Albumin, Serum 3.2 g/dL (3.2-5.0); Alkaline Phosphatase 138 U/L (45-117); Anion Gap 6 (5-15); BUN 16 mg/dL (7-18); BUN/Creat Ratio 20.4 RATIO (10-20); Calcium,Total 9.1 mg/dL (8.5-10.1); Chloride 112 mmol/L (98-107); Creatinine, Serum 0.78 mg/dL (0.70-1.30); EST Glomerular Filtration Rate 103 mL/min (>60); Est Glom Filt Rate - Afr Amer 125 mL/min (>60); Glucose 102 mg/dL (74-106); Potassium 3.9 mmol/L (3.5-5.1); Protein, Total 7.2 g/dL (6.4-8.2); Sodium Level 144 mmol/L (136-145)
== END ==
LOC: POLAB3 10:09 → RAD 10:24
PROVIDERS: PCP Family Medicine Geriatric Medicine; Referring Provider Family Medicine Geriatric Medicine; Visit Provider Family Medicine Geriatric Medicine
DX: R19.7 Diarrhea, unspecified (principal)
CPT/HCPCS: 36415; 74019; 80053; 85025

== ENCOUNTER → 2020-08-21 10:28 | Outpatient (CLI) | payer MEDICARE, SELFPAY | PROVIDERS: PCP Family Medicine Geriatric Medicine; Referring Provider Family Medicine Geriatric Medicine; Visit Provider Family Medicine Geriatric Medicine | DX: R19.7 Diarrhea, unspecified (principal) | CPT/HCPCS: 82274; 83630; 87177; 87209; 87506 ==

== ENCOUNTER → 2020-09-17 11:00 | Outpatient (CLI) | payer MEDICARE, SELFPAY ==
[2020-09-17 12:04] LABS: Absolute Lymphocyte Count 1.09 X10^3/uL (0.83-4.51); Absolute Neutrophil Count 3.9 X10^3/uL (2.0-7.7); Basophil# 0.02 X10^3/uL; Basophil% 0.4 % (0-1); Eosinophil# 0.17 X10^3/uL; Hematocrit 39.4 % (40-54); Lymphocyte # 1.09 X10^3/ul (4.0); Lymphocyte % 19.5 % (19-41); Mean Corpuscular Volume 87.8 fL (80-94); Mean Platelet Vol. 9.5 fl (6.2-12.0); Monocyte# 0.43 X10^3/uL; Monocyte% 7.7 % (0-10); NRBC Flagged by Analyzer 0 % (0-5); Neutrophil # 3.88 X10^3/uL (2.7-7.7); Neutrophil % 69.2 % (47-70); Platelet Count 145 K/mm3 (150-450); RBC Distribution Width SD 41.1 fl (35.1-43.9); Red Blood Count 4.49 M/mm3 (4.6-6.2); White Blood Count 5.6 K/mm3 (4.4-11.0)
[2020-09-17 12:13] LABS: Prothrombin Time (Protime)PT. 22.2 SECONDS (11.7-14.9)
[2020-09-17 12:34] LABS: Vitamin D,25 Hydroxy 82.3 ng/mL
[2020-09-17 12:40] LABS: ALB/GLOB Ratio 0.8 RATIO (0.9-2.4); AST(SGOT) 19 U/L (15-37); Alanine Aminotransfer ALT/SGPT 22 U/L (16-61); Albumin, Serum 3.3 g/dL (3.2-5.0); Alkaline Phosphatase 165 U/L (45-117); Anion Gap 4 (5-15); BUN 18 mg/dL (7-18); BUN/Creat Ratio 22.1 RATIO (10-20); Calcium,Total 9.5 mg/dL (8.5-10.1); Chloride 109 mmol/L (98-107); Creatinine, Serum 0.82 mg/dL (0.70-1.30); EST Glomerular Filtration Rate 99 mL/min (>60); Est Glom Filt Rate - Afr Amer 119 mL/min (>60); Globulin 4.1 g/dL (2.2-4.2); Glucose 94 mg/dL (74-106); Protein, Total 7.4 g/dL (6.4-8.2); Sodium Level 143 mmol/L (136-145); Thyroid Stim Hormone (TSH) 2.68 uIU/mL (0.358-3.74)
== END ==
PROVIDERS: PCP Family Medicine Geriatric Medicine; Visit Provider Family Medicine Geriatric Medicine
DX: E55.9 Vitamin D deficiency, unspecified (principal); F52.8 Other sexual dysfunction not due to a substance or known physiological condition; I10 Essential (primary) hypertension; Z79.01 Long term (current) use of anticoagulants
CPT/HCPCS: 36415; 80053; 82306; 84403; 84443; 85025; 85610

== ENCOUNTER 2020-10-16 15:57 | Outpatient (RCR) | payer MEDICARE, SELFPAY | END 2020-10-16 19:00 | disposition home or self-care (01) | LOC: PT 15:57 | PROVIDERS: PCP Family Medicine Geriatric Medicine | DX: R29.898 Other symptoms and signs involving the musculoskeletal system (principal) ==

== ENCOUNTER → 2020-10-18 12:12 | Outpatient (CLI) | payer MEDICARE, SELFPAY ==
--- NOTE | 2020-10-18 12:20 | RAD_ITS ---
STUDY: X-RAY - ABDOMEN/PELVIS REASON FOR EXAM: Male, 75 years old. DIARRHEA FOR A COUPLE DAYS. HX OF BOWEL BLOCKAGES. TECHNIQUE: AP supine and upright views of the abdomen and pelvis. COMPARISON: None. FINDINGS: Normal visualized lung bases. There is an unremarkable bowel gas pattern. There is no demonstrated free abdominal air. The visualized liver, spleen and kidneys are grossly normal in size and morphology. Radiation seeds within the prostate gland. Normal visualized osseous structures. RAD/[employer]d Inc Decub and/or Erect IMPRESSION: Normal x-ray examination of the abdomen and pelvis. Electronically Signed: Delroy Maxwell MD at 10:27 EST Tel , Service support ,
== END ==
PROVIDERS: PCP Family Medicine Geriatric Medicine; Visit Provider Family Medicine Geriatric Medicine
DX: R19.7 Diarrhea, unspecified (principal)
CPT/HCPCS: 74019

== ENCOUNTER 2020-10-18 14:30 | Outpatient (RCR) | payer MEDICARE, SELFPAY ==
--- NOTE | 2020-04-11 10:57 | HP.PTEVAL_ITS ---
Patient's Visit Information MEENAKSHI NI is a 74 year old M referred to Physical Therapy by OPHELIA DELCID with a diagnosis of Cervical spinal fusion. Date of Evaluation: 04/10/20 Physical Therapist: Everardo Irene DPT - Visit Plan Frequency: 2x /Week Duration: 4-6 Weeks Plan: Start with light ROM (no more than 50% of full motions in all directions), Scapular strengthening (light progressing as tolerated in 10lb restriction limitations). Work on R hand, finger muscle activation and wrist muscular activation. I am requesting OT as well to further work on hand therapy. - Subjective Pt. is here today for his initial evaluation with diagnosis of Cervical spinal fusion. Pt. reports Anterior fusion of C4-C7. Pt. reports having R wrist and finger weakness, but his L side has improved. Pt. is also describing BLE weakness. Pt. reports no pain currently. Pt. had his fusion in [facility]. Pt. reports no N/T in either UE or LE. Pt. does work at [employer]. 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 He DC is his cervical collar ~2 weeks ago. Pt. is sleeping okay. He is hopeful to get back to all recreational and work activites without limitaitons. Pt. is to return back to work on the . P - Objective POSTURE: FH posture, rounded shoulders, R arm in guarded positinoing. Pt. walks with a cane. PALAPTION: Pt. has mild soreness along his erector spinea, no pain else where. NEURO: normal sensation, decerased DTR of biceps on R side. L side normal. ROM: cervical spine: mod/max loss in all directions, except R rotation min/mod loss. No pain with motions, just stiffness. MMT: RUE- wrist and finger flexion 3/5, wrist and finger ext 2/5, 5th finger 2/5 throughout. R shoulder- 4/5 thorugout/ L UE- 4+/5 througout. - Goals Goal 1:: LTG: pt. to be I with HEP. Goal Time Frame: 4-6 Weeks Goal 2:: LTG: Pt. to have increased ROM of cervical spine by 25% in all directions. Goal Time Frame: 4-6 Weeks Goal 3:: LTG: Pt. to have increased BUE strength increased by 1/2 grade throughout. 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 Goal Time Frame: 4-6 Weeks Goal 5:: LTG: pt. to resume work activities without limitations. Goal Time Frame: 4-6 Weeks - Rehabilitation Potential Physical Therapy Diagnosis: Pt. has signs and symptoms consistent with cervical spineal fusion. Pt. has subsequent weakness of BUE and R worse than left. Pt. also has decreased ROm of cervical spine as expected. Pt. would benefit from PT to slowly increase ROM, UE strength with in precations. Rehabilitation Potential: Fair - Anticipated Interventions Patient/Client Instruction: Educate patient on: Condition, Plan of Care, Risk Factors, Benefits of Fitness Program For the Purpose of:: To improve decision making, To facilitate caregiver knowledge, To improve self management, To prevent re-injury, To improve ability to perform tasks related to life management, To improve tolerance to ADL's Therapeutic Exercise to Include: Strength training, Power training, Postural training, Flexibilty training, Gait and locomotor training, Passive ROM, Active ROM, Dynamic Lumbar Stabilization, Fabien Exercises, Scapular Strength/Stabilization For the Purpose of:: To decrease pain, To decrease swelling/inflammation, To increase ROM, To improve nutrient delivery to tissue, To improve muscle performance and motor function, To improve ability to perform ADL's, To increase tolerance to activity/condition/position, To improve performance and independence with ADL's, To decrease level of supervision to perform tasks, To improve ability of physical actions for home/community/work/leisure, To improve health of tissue Cryotherapy (ice pack, ice massage): Yes Thermo therapy (hot pack): Yes Thank you for the opportunity to evaluate your patient. For Medicare and Medicare HMO plans, please review the plan of care and approve it. It will need to be FAXED BACK to us at [phone] for Medicare purposes. For Medicare only, by signing this I certify the plan of care. Please let me know if there are questions or concerns regarding this plan of care. Physician Signature: Date:
--- NOTE | 2020-05-15 16:09 | HP.OTEVAL_ITS ---
Patient's Visit Information MEENAKSHI NI is a 74 year old M, referred to Occupational Therapy by OPHELIA DELCID, with a diagnosis of myelopathy/ right hand weakness cervical fadiculopathy. Date of Evaluation: 05/15/20 Occupational Therapist: Janet Aguilar, OTR/L, CHT - Subjective This 74 year old male was seen for OT eval following a cervical spinal fusion. pt states aug-sep 2018 pt had a falll and caught himself with right hand. pt states had injury to right hand and has had difficulty with ROM and strength of right hand. pt states he went to therapy but no improvement of the hand and went for cervical x-ray having reveled neck involvment req. cervical fussion. pt states his left hand has returned with some strength and function. pt has more concerns with right. - ROM ROM Comments: pt demo with right wrist drop. pt demo limited ability to form composite fist with wrist in N. left UE ROM is WFL and pt demo full composite fist with left - Strength Inspector Glass Or Mirror: right unable left 40# Lateral Pinch: right 4# left 16# Tripod Pinch: right unable left 8# - Sensation Sensation Comments: denies - In-Hand Manipulation Finger to Palm Translation: Unable - Right, Moderate - Left Palm to Finger Translation: Unable - Right, Severe - Left Shift: Unable - Right, Moderate - Left - Quick DASH-Disab of Arm,Shoulder& Hand Quick DASH Score: 44.6425 - Goals Goal:: pt will demo a increase in right instrument mechanic weapons system strength to 35# or greater to perform ADLs and IADLs with use of right hand by d/c. pt will demo a increase in left instrument mechanic weapons system strength by 15 # or greater to increase pts ind. with adls and IADLs by d/c Goal:: pt will demo right wrist ext to 60* or greater to increase ind with ADLs by d/c. pt will demo a increase in the ability to form a composite fist to use right hand for writing and picking up different size objects by d/c Goal:: pt will demo IND with manipulate fasteners and write name by d/c Goal:: pt will demo understanding of using right wrist brace to prevent right wrist extensor lag as radial nerve is healing by end of 2nd session. - Rehabilitation General Assessment: pt demo with right wrist drop (radial nerve) and limited ability to form composite fist along with left UE/hand weakness limiting pts ind. with ADls and IADls. pt demo need for skilled OT services 2 x week for 4 weeks to assist pt on reaching max rehab potential. Today therapist ed. pt on need to use right wrist brace to prevent right wrist extensor lag while radial nerve is healing. Theapist ed. pt on PROM ex for fingers to prevent contractures while AROM is limited, along with radial nerve glides. Pt demo understanding and agree to POC. Rehabilitation Potential: Good - Anticipated Interventions A/AAROM/PROM, Strengthening, Modalities, Fine Motor Coord/Deshaun - Visit Plan Frequency: 2x /Week Duration: 4 Weeks General Plan: therapy will challenged pts AROM and as pt progresses increase to PRE TEXT: Thank you for the opportunity to evaluate your patient. For Medicare and Medicare HMO plans, please review the plan of care and approve it. It will need to be FAXED BACK to us at [phone] for Medicare purposes. Please let me know if there are questions or concerns regarding this plan of care. Physician Signature: Date:
--- NOTE | 2020-05-25 14:09 | HP.PTREVAL_ITS ---
OPHELIA DELCID, It has been my pleasure to treat MEENAKSHI NI over the last 10 visits for Cervical spinal fusion (C4-C7). Please see the progress note below for an update on the physical therapy plan of care! Subjective: Pt. reports overall doing better. Pt. reports no pain today. Pt. is stillwalking with cane at work an in community. Pt. is seeing OT for her had at this point in time. Objective/Function: Pt. continues to have difficulty with balance. He reports his main concern with PT at this point in time is his balance and neck ROM. I would like to continue with her neck ROM and scapular stability, but also add in a focus on his balance reducing risk for future falls. TUsec without AD. GAIT: Pt. is able to ambulate with increased R lateral shift, decreased step length and increased lateral sway. Pt. does better with SPC, but still has very shuffling gait pattern. Plan Plan: Progress cervical ROM as tolerated. Cont with scapular strengthening. Also continue with balance training as he is concerned with risk for future falls and overall imbalance. Goals Goal 1:: LTG: pt. to be I with HEP. Goal Time Frame: 4-6 Weeks Goal Progress: Progressing Goal 2:: LTG: Pt. to have increased ROM of cervical spine by 25% in all directions. Goal Time Frame: 4-6 Weeks Goal Progress: Progressing Goal 3:: LTG: Pt. to have increased BUE strength increased by 1/2 grade throughout. Goal Time Frame: 4-6 Weeks Goal Progress: Progressing Goal 4:: LTG: Pt. to have increased R oracle identity management consultant strength equal to L side. (OT to address going forward) Goal Time Frame: 4-6 Weeks Goal Progress: Not Progressing Goal 5:: LTG: pt. to resume work activities without limitations. Goal Time Frame: 4-6 Weeks Goal Progress: Progressing Goal 6:: NEW GOAL: 05/25/20: Pt. to have improved TUG time to 12 sec without AD indicating increased stability in stance. Goal Time Frame: 4-6 Weeks Goal Progress: Progressing Anticipated Interventions Patient/Client Instruction: Educate patient on: Condition, Plan of Care, Risk Factors, Benefits of Fitness Program For the Purpose of:: To improve decision making, To facilitate caregiver knowledge, To improve self management, To prevent re-injury, To improve ability to perform tasks related to life management, To improve tolerance to ADL's Therapeutic Exercise to Include: Strength training, Power training, Postural training, Flexibilty training, Gait and locomotor training, Passive ROM, Active ROM, Dynamic Lumbar Stabilization, Fabien Exercises, Scapular Strength/Stabilization For the Purpose of:: To decrease pain, To decrease swelling/inflammation, To increase ROM, To improve nutrient delivery to tissue, To improve muscle performance and motor function, To improve ability to perform ADL's, To increase tolerance to activity/condition/position, To improve performance and independence with ADL's, To decrease level of supervision to perform tasks, To improve ability of physical actions for home/community/work/leisure, To improve health of tissue Cryotherapy (ice pack, ice massage): Yes Thermo therapy (hot pack): Yes Please do not hesitate to contact me at [phone] by phone or if you have questions or concerns regarding this new plan of care! Sincerely, Everardo Irene DPT
--- NOTE | 2020-07-02 11:01 | OTREVAL_ITS ---
OPHELIA DELCID, It has been my pleasure to treat MEENAKSHI NI over the last 13 visits for myelopathy/ right hand weakness cervical fadiculopathy. Please see the progress note below for an update on the occupational therapy plan of care! Subjective: Pt arrived late today. Brought wrist brace but not wearing d/t unable to drive with it. Objective/Function: L cup setter lockstitch 32#. R cup setter lockstitch 0#. pt is making gains with strength. therapist noted increase in forearm supination- no wrist or digit extension at this time. pt would benefit from cont. skilled OT services will continue to strengthen BUE and right UE with wrist brace on to prevent extensor lag. Plan Frequency: 2x /Week Duration: 4 Weeks Plan: cont with BTE and UB PRE for left-. right try FES for wrist ect-. PROM to decrease joint sitffenss Goals - Goals Patient Goals: Regain Mobility, Regain Strength, Decrease Swelling/Stiffness, Use Hand/Wrist/Arm Normally Again Goal:: pt will demo a increase in right cup setter lockstitch strength to 35# or greater to perform ADLs and IADLs with use of right hand by d/c. pt will demo a increase in left cup setter lockstitch strength by 15 # or greater to increase pts ind. with adls and IADLs by d/c Goal:: pt will demo right wrist ext to 60* or greater to increase ind with ADLs by d/c. pt will demo a increase in the ability to form a composite fist to use right hand for writing and picking up different size objects by d/c Goal:: pt will demo IND with manipulate fasteners and write name by d/c Goal:: pt will demo understanding of using right wrist brace to prevent right wrist extensor lag as radial nerve is healing by end of 2nd session. Anticipated Interventions Anticipated Interventions: A/AAROM/PROM, Strengthening, Modalities, Fine Motor Coord/Deshaun Please do not hesitate to contact me at [phone] by phone or if you have questions or concerns regarding this new plan of care! Sincerely, Janet Aguilar, OTR/L, CHT
--- NOTE | 2020-08-07 12:58 | HP.PTREVAL_ITS ---
OPHELIA DELCID, It has been my pleasure to treat MEENAKSHI NI over the last 25 visits for Cervical spinal fusion (C4-C7). Please see the progress note below for an update on the physical therapy plan of care! Subjective: Pt reports feeling better this date. Returns to 08/16/20. He still compains of increasd difficulty with his balance, but his cervical spine ROM is doing much better. Pt. reports his biggest issues is with his balance. Objective/Function: TUG 19.5. Neck L rot mod loss; min loss all other motions. B Shld flex 4-, B shld ext rot 3+, L elbow flx 4-, R elbow flx 3+. 4+ all other shld and elbow motions. Pt. is doing well with cervical ROM, still missing some UE strength, not much change with his financial assistance advisor strength (OT addresing). Pt. has had some increase in his balance and walking. He is mostly carrying his cane, but does not use it much. Pt. reports overall minimal pain. He is still lacking overall endruance. From a cervical aspect, he is doing well. Plan Plan: Cont w/ POC. Focusing on balance and endurance. Pt. to follow up with physician next week. Goals Goal 1:: LTG: pt. to be I with HEP. Goal Time Frame: 4-6 Weeks Goal Progress: Progressing Goal 2:: LTG: Pt. to have increased ROM of cervical spine by 25% in all directions. Goal Time Frame: 4-6 Weeks Goal Progress: Progressing Goal 3:: LTG: Pt. to have increased BUE strength increased by 1/2 grade throughout. Goal Time Frame: 4-6 Weeks Goal Progress: Progressing Goal 4:: LTG: Pt. to have increased R financial assistance advisor strength equal to L side. (OT to address going forward) Goal Time Frame: 4-6 Weeks Goal Progress: Not Progressing Goal 5:: LTG: pt. to resume work activities without limitations. Goal Time Frame: 4-6 Weeks Goal Progress: Goal Met Goal 6:: NEW GOAL: 05/25/20: Pt. to have improved TUG time to 12 sec without AD indicating increased stability in stance. Goal Time Frame: 4-6 Weeks Goal Progress: Progressing Anticipated Interventions Patient/Client Instruction: Educate patient on: Condition, Plan of Care, Risk Factors, Benefits of Fitness Program For the Purpose of:: To improve decision making, To facilitate caregiver knowledge, To improve self management, To prevent re-injury, To improve ability to perform tasks related to life management, To improve tolerance to ADL's Therapeutic Exercise to Include: Strength training, Power training, Postural training, Flexibilty training, Gait and locomotor training, Passive ROM, Active ROM, Dynamic Lumbar Stabilization, Fabien Exercises, Scapular Strength/Stabilization For the Purpose of:: To decrease pain, To decrease swelling/inflammation, To increase ROM, To improve nutrient delivery to tissue, To improve muscle performance and motor function, To improve ability to perform ADL's, To increase tolerance to activity/condition/position, To improve performance and independence with ADL's, To decrease level of supervision to perform tasks, To improve ability of physical actions for home/community/work/leisure, To improve health of tissue Cryotherapy (ice pack, ice massage): Yes Thermo therapy (hot pack): Yes Please do not hesitate to contact me at [phone] by phone or if you have questions or concerns regarding this new plan of care! Sincerely, GERRY SolomonT
[2020-10-29 14:02] VITALS: BMI 39.6
== END 2020-10-18 19:00 | disposition home or self-care (01) ==
LOC: OT 14:30
PROVIDERS: PCP Family Medicine Geriatric Medicine; Referring Provider Family Medicine Geriatric Medicine
DX: M62.81 Muscle weakness (generalized) (principal)
CPT/HCPCS: 97110; 97112; 97161; 97164; 97166; 97530

== ENCOUNTER → 2020-10-23 11:10 | Outpatient (CLI) | payer MEDICARE, SELFPAY | PROVIDERS: PCP Family Medicine Geriatric Medicine; Visit Provider Family Medicine Geriatric Medicine | DX: R19.7 Diarrhea, unspecified (principal) | CPT/HCPCS: 82274; 83630; 87177; 87209; 87493; 87506 ==

== ENCOUNTER → 2020-11-15 12:09 | Outpatient (CLI) | payer MEDICARE, SELFPAY ==
[2020-10-29 14:02] VITALS: BMI 39.6
[2020-11-15 12:29] LABS: Absolute Lymphocyte Count 0.75 X10^3/uL (0.83-4.51); Absolute Neutrophil Count 3.2 X10^3/uL (2.0-7.7); Basophil# 0.02 X10^3/uL; Basophil% 0.4 % (0-1); Eosinophils% 4.4 % (0-5); Hematocrit 37.4 % (40-54); Hemoglobin 12.5 g/dL (13.0-16.5); Lymphocyte # 0.75 X10^3/ul (4.0); Lymphocyte % 16.6 % (19-41); Mean Corp Hgb Conc 33.4 g/dL (32-36); Mean Corpuscular Hgb 29.1 pg (27.0-32.0); Mean Corpuscular Volume 87.2 fL (80-94); Mean Platelet Vol. 8.9 fl (6.2-12.0); Monocyte# 0.33 X10^3/uL; Monocyte% 7.3 % (0-10); NRBC Flagged by Analyzer 0 % (0-5); Neutrophil % 71.1 % (47-70); Platelet Count 120 K/mm3 (150-450); RBC Distribution Width SD 40.7 fl (35.1-43.9); Red Blood Count 4.29 M/mm3 (4.6-6.2); White Blood Count 4.5 K/mm3 (4.4-11.0)
[2020-11-15 12:38] LABS: International Normalized Ratio 1.8; Prothrombin Time (Protime)PT. 20.3 SECONDS (11.7-14.9)
== END ==
PROVIDERS: PCP Family Medicine Geriatric Medicine; Visit Provider Family Medicine Geriatric Medicine
DX: D64.9 Anemia, unspecified (principal); I48.11 Longstanding persistent atrial fibrillation; Z79.01 Long term (current) use of anticoagulants
CPT/HCPCS: 36415; 85025; 85610

== ENCOUNTER → 2020-12-20 11:01 | Outpatient (CLI) | payer MEDICARE, SELFPAY ==
[2020-10-29 14:02] VITALS: BMI 39.6
[2020-12-20 12:48] LABS: Absolute Lymphocyte Count 0.99 X10^3/uL (0.83-4.51); Absolute Neutrophil Count 3.1 X10^3/uL (2.0-7.7); Basophil# 0.02 X10^3/uL; Basophil% 0.4 % (0-1); Eosinophil# 0.19 X10^3/uL; Eosinophils% 4.1 % (0-5); Hematocrit 38.4 % (40-54); Hemoglobin 12.8 g/dL (13.0-16.5); Lymphocyte # 0.99 X10^3/ul (4.0); Lymphocyte % 21.2 % (19-41); Mean Corp Hgb Conc 33.3 g/dL (32-36); Mean Corpuscular Volume 87.1 fL (80-94); Mean Platelet Vol. 9.6 fl (6.2-12.0); Monocyte# 0.41 X10^3/uL; Monocyte% 8.8 % (0-10); NRBC Flagged by Analyzer 0 % (0-5); Neutrophil # 3.05 X10^3/uL (2.7-7.7); Neutrophil % 65.3 % (47-70); Platelet Count 137 K/mm3 (150-450); RBC Distribution Width CV 12.9 % (11.6-14.6); RBC Distribution Width SD 41.1 fl (35.1-43.9); Red Blood Count 4.41 M/mm3 (4.6-6.2); White Blood Count 4.7 K/mm3 (4.4-11.0)
[2020-12-20 13:04] LABS: Vitamin D,25 Hydroxy 55.3 ng/mL
[2020-12-20 13:15] LABS: International Normalized Ratio 1.6; Prothrombin Time (Protime)PT. 18.1 SECONDS (11.7-14.9)
[2020-12-20 13:18] LABS: ALB/GLOB Ratio 0.8 RATIO (0.9-2.4); AST(SGOT) 19 U/L (15-37); Alanine Aminotransfer ALT/SGPT 23 U/L (16-61); Albumin, Serum 3.3 g/dL (3.2-5.0); Alkaline Phosphatase 148 U/L (45-117); Anion Gap 5 (5-15); BUN 18 mg/dL (7-18); BUN/Creat Ratio 22.6 RATIO (10-20); Calcium,Total 9.2 mg/dL (8.5-10.1); Chloride 106 mmol/L (98-107); EST Glomerular Filtration Rate 101 mL/min (>60); Est Glom Filt Rate - Afr Amer 122 mL/min (>60); Globulin 3.9 g/dL (2.2-4.2); Glucose 108 mg/dL (74-106); Potassium 3.9 mmol/L (3.5-5.1); Protein, Total 7.2 g/dL (6.4-8.2); Sodium Level 141 mmol/L (136-145); Thyroid Stim Hormone (TSH) 3.31 uIU/mL (0.358-3.74)
== END ==
PROVIDERS: PCP Family Medicine Geriatric Medicine; Visit Provider Family Medicine Geriatric Medicine
DX: E55.9 Vitamin D deficiency, unspecified (principal); F52.8 Other sexual dysfunction not due to a substance or known physiological condition; I10 Essential (primary) hypertension; I48.11 Longstanding persistent atrial fibrillation; Z79.01 Long term (current) use of anticoagulants
CPT/HCPCS: 36415; 80053; 82306; 84403; 84443; 85025; 85610

== ENCOUNTER → 2020-12-28 16:23 | Outpatient (CLI) | payer MEDICARE, SELFPAY ==
[2020-10-29 14:02] VITALS: BMI 39.6
--- NOTE | 2020-12-28 16:33 | CT_ITS ---
STUDY: CT CHEST WITH CONTRAST REASON FOR EXAM: Male, 75 years old. 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 Individualized dose optimization techniques were used for this CT. COMPARISON: None. FINDINGS: Pulmonary volumes are moderately decreased. There are mild peripheral subpleural early increased interstitial intralobular markings. There is no established fibrosis. Airways are patent. Pleural surfaces are intact. Mediastinal contents are normal. There is no thymus related abnormality. There is prior coronary artery bypass grafting. Aorta is normal. Pulmonary artery is minimally enlarged. There are calcified benign dystrophic mediastinal lymph nodes. Osseous structures are intact with multilevel lower thoracic hardware fusion. CT/Chest WITH Contrast IMPRESSION: 1. Minor/early pulmonary fibrosis, not fullfilling diagnostic criteria for UIP. 2. Unremarkable mediastinum, no thymic abnormality. Electronically Signed: Shantel Mariee MD at 21:36 EST Tel , Service support ,
== END ==
PROVIDERS: PCP Family Medicine Geriatric Medicine; Referring Provider Psychiatry & Neurology Neurology; Visit Provider Psychiatry & Neurology Neurology
DX: G70.80 Lambert-Eaton syndrome, unspecified (principal)
CPT/HCPCS: 36415; 71260; Q9967

== ENCOUNTER 2021-01-05 02:58 | Inpatient (IN) | payer MEDICARE, SELFPAY ==
[2020-10-29 14:02] VITALS: BMI 39.6
[2021-01-05] VITALS (23 sets, daily range): BP systolic 117–156; BP diastolic 63–86; PULSE 68–131; RESP 16–29; TEMP 36.1–39.1; O2SAT 91–99; BMI 40.6; BMI 39.2; BMI 39.3
--- NOTE | 2021-01-05 03:04 | RAD_ITS ---
STUDY: X-RAY - PELVIS AND RIGHT HIP REASON FOR EXAM: Male, 75 years old. fall TECHNIQUE: 3 views of the pelvis and hip. COMPARISON: None. FINDINGS: There is a non-specific bowel gas pattern. Normal visualized soft tissue structures. There is narrowing with cortical sclerosis and osteophyte formation of the sacroiliac joint consistent with degenerative osteoarthritic changes. Normal bilateral superior and inferior pubic rami. There are degenerative changes of the pubic symphysis with articular narrowing and sclerosis. Normal bilateral ischial tuberosities. There are osteoarthritic changes of the femoral head with marginal osteophyte formation. Normal acetabulum. There is moderate articular joint space narrowing of the hip. 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 Electronically Signed: Edyta Carroll MD at 4:53 EST Tel , Service support ,
--- NOTE | 2021-01-05 03:04 | EKG12_ITS ---
Test Reason : FALL Blood Pressure : / mmHG Vent. Rate : 123 BPM Atrial Rate : 117 BPM P-R Int : 000 ms QRS Dur : 088 ms QT Int : 424 ms P-R-T Axes : 000 -04 -62 degrees QTc Int : 607 ms Atrial fibrillation with rapid ventricular response Inferior infarct , age undetermined , cannot be excluded Abnormal ECG Confirmed by HANNAH SIMON, ANNA ([id number]), mapping editor DEIRDRE BALTAZAR ([id number]) on 01/07/2021 10:03:58 AM Referred By: CARLOS Confirmed By:ANNA YOUNG MD
--- NOTE | 2021-01-05 03:06 | ED.DCSUM_ITS ---
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 The patient states he has had 2 falls this week. He states that he has just felt generally weak. He states he is not felt like he is in having any increased shortness of breath. He states just feels like he does not have the energy to do things. Tonight, he had a fall and landed on his right hip. He did not strike his head or lose consciousness. 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 He does admit to some mild shortness of breath, but states is chronic. He denies cough. He denies dysuria or abdominal pain. Prior similar symptoms: No Recent Illness/Hospitalization: No Past Medical History - Allergies and Home Meds Allergies/Adverse Reactions: Allergies amiodarone Adverse Reaction (Intermediate, Verified 01/05/21 03:07) It did not work, also bad dreams and neuropathy Primary Care Physician: James Pisano Chi, MD [Primary Care Provider] - Prior records reviewed: Yes Past Medical History: - - Atrial fibrillation, prostate cancer, hypertension, prior CABG Surgical History: coronary bypass surgery Smoking Status: Former smoker - Family History Maternal Family History: Family History (Last Reviewed 10/29/20 @ 14:19 by Janet MERCADO, PA) Father Myocardial infarction CAD (coronary artery disease) ETOH abuse Mother Bone cancer Brother AIDS (acquired immune deficiency syndrome) Family History: Reports: Cancer, - - Maternal family history of cancer, noted to be bone, age 47. Paternal Family History: Family History (Last Reviewed 10/29/20 @ 14:19 by Janet MERCADO, PA) Father Myocardial infarction CAD (coronary artery disease) ETOH abuse Mother Bone cancer Brother AIDS (acquired immune deficiency syndrome) Family History: Reports: High Cholesterol, Heart Disease, Hypertension, - - Paternal family history of heart disease, PR, high blood pressure, hyperlipidemia, CAD, concurrent alcohol abuse history age 57. Review of Systems General: Reports: Chills, Malaise. Denies: Fever, Sweats Eyes: Denies: Visual changes - bilaterally, Diplopia ENT: Denies: Rhinorrhea, Sore throat Cardiovascular: Denies: Chest pain, Palpitations Respiratory: Reports: Dyspnea. Denies: Cough, Dyspnea on exertion Gastrointestinal: Denies: Abdominal pain, Nausea, Vomiting, Diarrhea, Melena, Hematochezia Genitourinary: Denies: Dysuria, Hematuria, Frequency Musculoskeletal: Denies: Back pain, Extremity Pain Skin: Denies: Rash, Wounds Neurological: Reports: Weakness. Denies: Headache, Numbness Physical Exam Vital Signs/Narrative: Vital Signs Temp Pulse Resp BP Pulse Ox 01/05/21 03:01 98.5 F 131 H 22 H 147/86 H 91 Inital Vital Signs reviewed: Yes General: Well nourished, Well developed, No Acute Distress Head: Normocephalic, Atraumatic Eyes: Perrl, EOMI ENT: Moist mucous membranes, No rhinorrhea Neck: Supple, Nontender Cardiovascular: No murmurs, Irregular, Tachycardia Respiratory: No distress, Chest nontender, Diminished Abdomen: Soft, Nontender, Nondistended, Normal bowel sounds Back: Nontender, Normal Inspection Extremities: Nontender, No edema Skin: Normal color, No rash Neurological: Alert, Oriented x3, Cranial nerves II-XII grossly intact, Normal Strength, Normal Sensation Psychological: Normal affect, Normal Mood Diagnostic/Tx/Re-eval Clinical Impression(s) from Imaging Studies Hip/Pelvis X-Ray 01/05/21 03:04 IMPRESSION: 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 Electronically Signed: Edyta Carroll MD at 4:53 EST Tel , Service support , Chest X-Ray 01/05/21 03:30 IMPRESSION: Normal x-ray examination of the chest. Electronically Signed: Edyta Carroll MD at 4:58 EST Tel , Service support , Abnormal Lab Results 01/05/21 01/05/21 01/05/21 03:20 03:20 03:20 WBC 5.5 RBC 4.04 L Hgb 11.7 L Hct 35.9 L MCV 88.9 MCH 29.0 MCHC 32.6 RDW Std Deviation 42.5 RDW Coeff of Dick 13.1 Plt Count 124 L MPV 8.9 Immature Gran % (Auto) 0.400 Neut % (Auto) 87.9 H Lymph % (Auto) 4.6 L [place] % (Auto) 6.2 Eos % (Auto) 0.7 Baso % (Auto) 0.2 Absolute Neuts (auto) 4.8 Absolute Lymphs (auto) 0.25 L Nucleated RBC % 0 Differential Comment SCANNED PT 22.1 H INR 2.0 APTT 44.4 H Sodium 142 Potassium 3.5 Chloride 108 H Carbon Dioxide 29.0 Anion Gap 5 BUN 21 H Creatinine 0.80 Estim Creat Clear Calc 90.26 Est GFR (MDRD) Af Amer 122 Est GFR (MDRD) Non-Af 101 BUN/Creatinine Ratio 26.3 H Glucose 144 H Lactic Acid Calcium 8.9 Total Bilirubin 1.90 H AST 27 ALT 18 Alkaline Phosphatase 122 H B-Natriuretic Peptide Total Protein 6.8 Albumin 3.0 L Globulin 3.8 Albumin/Globulin Ratio 0.8 L Urine Color Urine Clarity Urine pH Ur Specific [place] Urine Protein Urine Glucose (UA) Urine Ketones Urine Occult Blood Urine Nitrite Urine Bilirubin Urine Urobilinogen Ur Leukocyte Esterase 01/05/21 01/05/21 01/05/21 03:20 03:20 05:22 WBC RBC Hgb Hct MCV MCH MCHC RDW Std Deviation RDW Coeff of Dick Plt Count MPV Immature Gran % (Auto) Neut % (Auto) Lymph % (Auto) [place] % (Auto) Eos % (Auto) Baso % (Auto) Absolute Neuts (auto) Absolute Lymphs (auto) Nucleated RBC % Differential Comment PT INR APTT Sodium Potassium Chloride Carbon Dioxide Anion Gap BUN Creatinine Estim Creat Clear Calc Est GFR (MDRD) Af Amer Est GFR (MDRD) Non-Af BUN/Creatinine Ratio Glucose Lactic Acid 1.7 Calcium Total Bilirubin AST ALT Alkaline Phosphatase B-Natriuretic Peptide 107.9 H Total Protein Albumin Globulin Albumin/Globulin Ratio Urine Color Yellow Urine Clarity Sl. Cloudy Urine pH 5.0 Ur Specific [place] 1.020 Urine Protein 30 H Urine Glucose (UA) Normal Urine Ketones Negative Urine Occult Blood 10 H Urine Nitrite Negative Urine Bilirubin Negative Urine Urobilinogen 1 H Ur Leukocyte Esterase 25 H - Rhythm Strip Rhythm Strip: A-fib Rate: 110 Ectopy: PAC(s) - EKG Initial EKG Interpretation: No Acute Injury Pattern, Atrial Fibrillation Prior: Unchanged - Medical Decision Making The patient presents with fever and generalized weakness. 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 He is also currently being worked up for neurologic condition. On arrival, the patient is tachycardic. EKG was obtained. Was atrial fibrilla tion with rapid ventricular response at a rate of 110. There is no acute ischemic change. The patient was not hypotensive, but was tachypneic and febrile. He also had an oxygen requirement. Covid testing was negative. With his fall and hip pain, I did obtain x-rays. These were also negative. The patient is awake and alert. Is no evidence of delirium. However, when he does try to stand he is very unsteady on his feet. Screening labs are relatively unremarkable. The patient did have a hard time giving a urine sample, so cath sample was obtained. This was cultured. The patient was started on Rocephin. His chest x-ray shows no focal infiltrative process. There is cardiomegaly which is unchanged. At this point, given his fever and weakness I do feel that he would benefit from admission. We will obtain a Covid PCR given his fever. He will be given IV Decadron. The patient was discussed with the hospitalist will be admitted. Impression 1. Fever 2. Generalized weakness ED Disposition - Plan for ED Patient: Referrals: James Pisano Chi, MD [Primary Care Provider] -
[2021-01-05 03:27] LABS: Absolute Lymphocyte Count 0.25 X10^3/uL (0.83-4.51); Absolute Neutrophil Count 4.8 X10^3/uL (2.0-7.7); Basophil# 0.01 X10^3/uL; Basophil% 0.2 % (0-1); Eosinophil# 0.04 X10^3/uL; Eosinophils% 0.7 % (0-5); Hematocrit 35.9 % (40-54); Hemoglobin 11.7 g/dL (13.0-16.5); Lymphocyte # 0.25 X10^3/ul (4.0); Lymphocyte % 4.6 % (19-41); Mean Corp Hgb Conc 32.6 g/dL (32-36); Mean Corpuscular Volume 88.9 fL (80-94); Mean Platelet Vol. 8.9 fl (6.2-12.0); Monocyte# 0.34 X10^3/uL; Monocyte% 6.2 % (0-10); NRBC Flagged by Analyzer 0 % (0-5); Neutrophil # 4.82 X10^3/uL (2.7-7.7); Neutrophil % 87.9 % (47-70); POSITIVE DIFFERENTIAL YES; Platelet Count 124 K/mm3 (150-450); RBC Distribution Width CV 13.1 % (11.6-14.6); RBC Distribution Width SD 42.5 fl (35.1-43.9); Red Blood Count 4.04 M/mm3 (4.6-6.2); White Blood Count 5.5 K/mm3 (4.4-11.0)
[2021-01-05 03:28] LABS: Differential Indicated SCAN CRITERIA MET
--- NOTE | 2021-01-05 03:30 | RAD_ITS ---
STUDY: X-RAY CHEST REASON FOR EXAM: Male, 75 years old. sob TECHNIQUE: Single AP portable view of the chest. COMPARISON: None. FINDINGS: The lungs are underexpanded. Subsegmental atelectases are noted in the right and left lung bases. There is no demonstrated pleural abnormality. There is moderate cardiac enlargement. Normal mediastinum and parul. Normal visualized pulmonary arteries. Normal visualized aortic arch and descending thoracic aorta. Normal visualized thoracic spine. There is degenerative osteoarthritis of the bilateral shoulders. There is no demonstrated abnormality of the visualized soft tissue structures of the upper abdomen. RAD/Chest 1 View (Portable) IMPRESSION: Normal x-ray examination of the chest. Electronically Signed: Edyta Carroll MD at 4:58 EST Tel , Service support ,
[2021-01-05 03:44] LABS: Prothrombin Time (Protime)PT. 22.1 SECONDS (11.7-14.9)
[2021-01-05 03:45] LABS: ALB/GLOB Ratio 0.8 RATIO (0.9-2.4); AST(SGOT) 27 U/L (15-37); Alanine Aminotransfer ALT/SGPT 18 U/L (16-61); Alkaline Phosphatase 122 U/L (45-117); Anion Gap 5 (5-15); BUN 21 mg/dL (7-18); BUN/Creat Ratio 26.3 RATIO (10-20); Calcium,Total 8.9 mg/dL (8.5-10.1); Chloride 108 mmol/L (98-107); EST Glomerular Filtration Rate 101 mL/min (>60); Est Glom Filt Rate - Afr Amer 122 mL/min (>60); Estimated Creatinine Clearance 90.26 ml/min; Globulin 3.8 g/dL (2.2-4.2); Glucose 144 mg/dL (74-106); Partial Thromboplast Time 44.4 Seconds (24.1-36.2); Potassium 3.5 mmol/L (3.5-5.1); Protein, Total 6.8 g/dL (6.4-8.2); Sodium Level 142 mmol/L (136-145)
[2021-01-05 03:48] LABS: Lactic Acid 1.7 mmol/L (0.4-1.9)
[2021-01-05] MEDS: Acetaminophen 500 MG Tablet 1000 MG PO (03:53)
[2021-01-05 03:54] LABS: Differential Comment SCANNED
[2021-01-05 05:27] LABS: Red Blood Cells-Urine 0 SEEN /hpf (0-5); Squamous Epithelial Cells - UA 0 SEEN /hpf (0-5)
[2021-01-05 05:29] LABS: Color, Urine Yellow (Yellow); Glucose, Dipstick Normal (Normal); Ketone-Dipstick Negative (Negative); Leukocyte Esterase-Dipstick 25 /ul (Negative); Nitrite-Dipstick Negative (Negative); Occult Blood-Urine 10 /ul (Negative); Protein-Dipstick 30 mg/dl (Negative); Urine Bilirubin Dipstick Negative (Negative); Urine Clarity Sl. Cloudy (Clear); Urine Urobilinogen 1 mg/dl (Normal)
[2021-01-05 05:34] LABS: BNP,B-Type NATRIURETIC PEPTIDE 107.9 pg/mL (0-100)
[2021-01-05 05:35] LABS: Mucous, Urine 2+ /hpf (<or=2+)
[2021-01-05 05:36] LABS: White Blood Cells 0-5 SEEN /hpf (0-5)
[2021-01-05 05:37] LABS: Fine Granular Cast- Urine 0-5 SEEN /lpf (0-5); Hyaline Cast 0-5 SEEN /lpf (0-5)
[2021-01-05 05:38] LABS: Bacteria RARE /hpf (None Seen)
[2021-01-05] MEDS: Ceftriaxone 1 GM/50 ML BAG IV (06:00)
[2021-01-05] MEDS: dexAMETHasone 4 MG/ML Vial 6 MG IV (06:00)
--- NOTE | 2021-01-05 06:11 | HP.PCM_ITS ---
Problem List (1) Sepsis Status: Acute Qualifiers: Sepsis type: sepsis due to unspecified organism Sepsis acute organ dysfunction status: unspecified Qualified Code(s): A41.9 - Sepsis, unspecified organism (2) COVID-19 Status: Suspected (3) Hypoxia Status: Acute (4) Morbid obesity Status: Chronic (5) History of prostate cancer Status: Chronic (6) Former tobacco use Status: Chronic (7) Chronic anemia Status: Chronic (8) History of subdural hematoma (post traumatic) Status: Chronic Comment: Trauma, fall down stairs with loss of consiousness (9) Hyperlipidemia Status: Chronic Qualifiers: Hyperlipidemia type: unspecified Qualified Code(s): E78.5 - Hyperlipidemia, unspecified (10) Hypertension Status: Chronic Qualifiers: Hypertension type: essential hypertension Qualified Code(s): I10 - Essential (primary) hypertension (11) S/P CABG x 2 Status: Chronic Comment: HEWITT to LAD, SVG to Lateral CX with radial artery examination. Per Dr. Corby Moura @ [facility]. (12) Atherosclerotic heart disease of [place] coronary artery without angina pectoris Status: Chronic Qualifiers: [place] vs. transplanted heart: unspecified whether [place] or transplanted heart Qualified Code(s): I25.10 - Atherosclerotic heart disease of [place] coronary artery without angina pectoris Comment: HEWITT to LAD, SVG to Lateral CX with radial artery examination. Per Dr. Corby Moura @ [facility]. (13) Persistent atrial fibrillation Status: Chronic History of Present Illness Date of Admission: 01/05/21 Chief Complaint: Malaise, fatigue, fever, dyspnea, falls. The patient is a 75 y/o M w/ PMHx: Chronic anemia, Former Tobacco use, Morbid Obesity, CAD s/p CABG HEWITT-LAD, SVG-LCX, HTN, HLD, Persistent AF on coumadin, Hx trauma s/p thoracic spinal fusion, traumatic hemothorax and SDH, Hx Prostate CA who presents to the [facility] ED on 01/05/21 with history of progressively worsening weakness, malaise, generalized weakness with most recently noted following day of ED presentation onto his right hip attempting to get her bed with no loss of consciousness with recent mild dyspnea, mild throbbing frontal headache intermittently and mild cough with no specific nausea, emesis, abdominal pain, diarrhea, alteration to sense of taste or smell and initially reported no fever but EMS upon evaluation noted significantly elevated temperature occurring over the last 2 to 3 days, noted of come on suddenly. He does note having his first Covid vaccination approximately 2 weeks prior to current presentation. He denies any recent specific ill contacts but has continued to go to work. Work-up in the ED included initially T 98.5, heart rate 131, BP 147/86, respiratory rate 22, 91% room air with most recent vital signs T102.3, heart rate 116, BP 147/86, respiratory rate 24, 97% on 2 L nasal cannula, CBC with WC 5.5, hemoglobin 11.7, platelet 124 with lymphopenia, coags with PT 22.1, INR 2.0, PTT 44.4, CMP with Chl 108, BUN/creatinine 21/0.80, glucose 144, lactic acid 1.7, total bilirubin 1.90, AST/ALT 27/18, alk phos 122, BNP 107.9 blood culture x2 pending per ED, urine culture pending per ED, UA with SG 1.020, no obvious evidence of UTI, rapid SARS Covid antigen negative with pending Covid PCR, chest x-ray with no acute cardiopulmonary findings, plain film of the hip with degenerative arthrosis of the pelvis and hip but no acute fracture evident, EKG atrial fibrillation with RVR initially, improved following tylenol. In the ED patient ministered Tylenol. Past Medical History Past Medical History (Chronic Problems): Chronic Problems (Last Reviewed 10/29/20 @ 14:19 by Janet Sweeney PA, PA) Morbid obesity (Chronic) History of prostate cancer (Chronic) Former tobacco use (Chronic) Chronic anemia (Chronic) History of subdural hematoma (post traumatic) (Chronic 12/27/18) Trauma, fall down stairs with loss of consiousness Fracture of ninth thoracic vertebra (Chronic 12/27/18) Trauma, fall down stairs Hyperlipidemia (Chronic) Hypertension (Chronic) History of left heart catheterization (Chronic 11/26/98) S/P CABG x 2 (Chronic 11/26/98) HEWITT to LAD, SVG to Lateral CX with radial artery examination. Per Dr. Corby Moura @ [facility]. Atherosclerotic heart disease of [place] coronary artery without angina pectoris (Chronic) HEWITT to LAD, SVG to Lateral CX with radial artery examination. Per Dr. Corby Moura @ [facility]. Persistent atrial fibrillation (Chronic) shelter (current) use of anticoagulants (Chronic) Medical History: Medical History (Last Reviewed 10/29/20 @ 14:19 by Janet Sweeney PA, PA) History of subdural hematoma (post traumatic) (Chronic) Onset Date: 12/27/18 Z87.828 Trauma, fall down stairs with loss of consiousness Fracture of ninth thoracic vertebra (Chronic) Onset Date: 12/27/18 S22.079A Trauma, fall down stairs Hyperlipidemia (Chronic) E78.5 Hypertension (Chronic) I10 Atherosclerotic heart disease of [place] coronary artery without angina pectoris (Chronic) I25.10 HEWITT to LAD, SVG to Lateral CX with radial artery examination. Per Dr. Corby Moura @ [facility]. 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 of anticoagulants (Chronic) Z79.01 History of Clostridium difficile infection Onset Date: 01/09/19 Z86.19 Treated with Vancomycin Traumatic hemothorax Onset Date: 12/30/18 S27.1XXA Allergies amiodarone Adverse Reaction (Intermediate, Verified 01/05/21 03:07) It did not work, also bad dreams and neuropathy Home Medications: Ambulatory Orders Medication Instructions Recorded Atorvastatin Calcium [Lipitor] 80 mg PO QHS 04/02/16 potassium chloride 20 mEq 20 meq PO DAILY 12/03/18 tablet,extended release Cetirizine HCl [Zyrtec] 10 mg PO DAILY 12/27/18 acetaminophen 325 mg tablet 650 mg PO Q4H PRN tab 03/09/19 cromolyn 5.2 mg/spray (4 %) nasal 2 spray INTRANASAL DAILY ml 03/09/19 spray triamcinolone acetonide 55 mcg 2 spray INTRANASAL DAILY 03/09/19 nasal spray aerosol metoprolol tartrate 50 mg tablet 50 mg PO BID 03/15/19 terazosin 10 mg capsule 10 mg PO QHS 03/15/19 leuprolide (3 month) 22.5 mg (3 11.25 mg IM [id number] 04/23/20 month) intramuscular syringe kit losartan 100 mg tablet 100 mg PO DAILY 04/23/20 warfarin 5 mg tablet 5 mg PO .COMPLEX #120 tab 06/04/20 cholecalciferol (vitamin D3) 1,250 1,000 unit PO ONCE cap 10/29/20 mcg (50,000 unit) capsule Enzalutamide [Xtandi] 160 mg PO DAILY 01/05/21 Surgical History: Surgical History (Last Reviewed 10/29/20 @ 14:19 by Janet MERCADO, PA) History of left heart catheterization (Chronic) Onset Date: 11/26/98 Z98.890 S/P CABG x 2 (Chronic) Onset Date: 11/26/98 Z95.1 HEWITT to LAD, SVG to Lateral CX with radial artery examination. Per Dr. Corby Moura @ [facility]. History of thoracic spinal fusion Onset Date: 12/30/18 Z98.1 ORIF of T-9 with T7-[address] Zacarias @ [facility] Surgical History: coronary bypass surgery, - - Thoracic spinal fusion. Psychiatric History: No pertinent psych hx Lives: Alone Smoking Status: Former smoker Tobacco Use: Non-smoker Alcohol: None Drugs: None - *Family History Maternal Family History: Family History (Last Reviewed 10/29/20 @ 14:19 by Janet MERCADO, PA) Father Myocardial infarction CAD (coronary artery disease) ETOH abuse Mother Bone cancer Brother AIDS (acquired immune deficiency syndrome) History Items: Cancer, - - Maternal family history of cancer, noted to be bone, age 47. Paternal Family History: Family History (Last Reviewed 10/29/20 @ 14:19 by Janet MERCADO, PA) Father Myocardial infarction CAD (coronary artery disease) ETOH abuse Mother Bone cancer Brother AIDS (acquired immune deficiency syndrome) History Items: High Cholesterol, Heart Disease, Hypertension, - - Paternal family history of heart disease, [place], high blood pressure, hyperlipidemia, CAD, concurrent alcohol abuse history age 57. Review of Systems Constitutional: Reports: Anorexia, Fever, Malaise, Weakness, Fatigue. Denies: Chills, Weight Change HEENT: Reports: Head Aches. Denies: Sinus Congestion, Sinus Drainage Cardiovascular: Denies: Chest Pain, Palpitations Respiratory: Reports: Cough, Shortness of Breath, Shortness of breath upon exertion. Denies: Shortness of breath at rest, Sputum production Gastrointestinal: Denies: Abdominal Pain, Nausea, Vomiting Genitourinary: Denies: Dysuria Musculoskeletal: Reports: Back Pain, Joint Pain. Denies: Joint Tenderness Skin: Reports: Skin Changes. Denies: Rash, Wounds Neurological: Denies: Numbness, Tingling, Focal weakness Psychiatric: Denies: Anxiety, Depression, Homicidal Ideations, Suicidal Ideations Hematologic/ Lymphatic: Reports: Anemia, Easy Bruising, Easy Bleeding VTE Information - Inpt Only VTE Present on Admission: No VTE Mechan Device Prophylaxis: SCD's VTE Pharm Prophylaxis ordered?: No Reason prophylaxis not ordered:: Treatment Not Indicated - We will continue Coumadin with INR trending. Subjective: Patient laying in the ED bed, fatigued and ill-appearing, no obvious respiratory distress but remains in the low 90s oxygenation bob. Objective: Physical Examination: General: awake, alert, oriented x 3 and cooperative, laying in the ED bed, fatigued and ill-appearing. Skin: normal color, turgor, no icterus, cyanosis, except noted chronic venous stasis skin changes bilateral lower extremities. HEENT: AT/NC, EOMI, PERRLA, dry MM, no carotid bruits or JVD noted. Lungs: Diminished breath sounds, greater bases, moderate effort, mildly increased rate, no rales, ronchi or wheezing. Heart: Irregular, irregular; no gallop, rub audible. Abdomen: soft, morbidly obese, NTTP, ND, distant normal BS, no HSM. Extremities: no cyanosis or clubbing, see skin, bilateral pedal to distal humphrey edema. Neurological: patient awake, alert, oriented as noted; cognitive function intact; pupils equally reactive to light and accomodation; cranial nerves II-XII grossly normal, moving all 4 extremities, no focal deficits, strength severely global decrease secondary to acute presentation. Psychiatric: affect appears fatigued, ill-appearing, no acute evidence of depressive or anxiety feelings. - Physical Exam Vitals/I&O's: Vital Signs Temp Pulse Resp BP Pulse Ox 101.3 F H 115 H 20 H 117/67 95 01/05/21 04:25 01/05/21 04:25 01/05/21 04:25 01/05/21 04:25 01/05/21 04:25 Oxygen Flow Rate (L/min) 2 Oxygen Delivery Method Nasal Cannula Weight: 299 lb 6.204 oz Body Mass Index (BMI) 40.6 Microbiology Past 72 Hours 01/05/21 03:13 Mucosa - Nasopharyngeal SARS-CoV-2 Antigen (Rapid) - Final Laboratory Results 01/05/21 03:20: WBC 5.5, RBC 4.04 L, Hgb 11.7 L, Hct 35.9 L, MCV 88.9, MCH 29.0, MCHC 32.6, RDW Std Deviation 42.5, RDW Coeff of Dick 13.1, Plt Count 124 L, MPV 8.9, Immature Gran % (Auto) 0.400, Neut % (Auto) 87.9 H, Lymph % (Auto) 4.6 L, [place] % (Auto) 6.2, Eos % (Auto) 0.7, Baso % (Auto) 0.2, Absolute Neuts (auto) 4.8, Absolute Lymphs (auto) 0.25 L, Nucleated RBC % 0, Differential Comment SCANNED 01/05/21 03:20: PT 22.1 H, INR 2.0, APTT 44.4 H 01/05/21 03:20: Sodium 142, Potassium 3.5, Chloride 108 H, Carbon Dioxide 29.0, Anion Gap 5, BUN 21 H, Creatinine 0.80, Estim Creat Clear Calc 90.26, Est GFR (MDRD) Af Amer 122, Est GFR (MDRD) Non-Af 101, BUN/Creatinine Ratio 26.3 H, Glucose 144 H, Calcium 8.9, Total Bilirubin 1.90 H, AST 27, ALT 18, Alkaline Phosphatase 122 H, Total Protein 6.8, Albumin 3.0 L, Globulin 3.8, Al bumin/Globulin Ratio 0.8 L 01/05/21 03:20: Lactic Acid 1.7 01/05/21 03:20: B-Natriuretic Peptide 107.9 H 01/05/21 05:22: Urine Color Yellow, Urine Clarity Sl. Cloudy, Urine pH 5.0, Ur Specific [place] 1.020, Urine Protein 30 H, Urine Glucose (UA) Normal, Urine Ketones Negative, Urine Occult Blood 10 H, Urine Nitrite Negative, Urine Bilirubin Negative, Urine Urobilinogen 1 H, Ur Leukocyte Esterase 25 H, Urine RBC Pending, Urine WBC Pending, Ur Squamous Epith Cells Pending, Urine Bacteria Pending, Urine Mucus Pending Current Medications Ceftriaxone Sodium (Rocephin) 1 gm in 50 mls @ 100 mls/hr IV X1 ONE Stop: 01/05/21 05:56 Assessment/Plan All Active Problems (Last Reviewed 10/29/20 @ 14:19 by Janet Sweeney PA, PA) Sepsis (Acute) Hypoxia (Acute) The patient is a 75 y/o M w/ PMHx: Chronic anemia, Former Tobacco use, Morbid Obesity, CAD s/p CABG HEWITT-LAD, SVG-LCX, HTN, HLD, Persistent AF on coumadin, Hx trauma s/p thoracic spinal fusion, traumatic hemothorax and SDH, Hx Prostate CA who presents to the [facility] ED on 01/05/21 with history of progressively worsening fatigue, malaise, debility, fever noted by EMS with also mild cough over the last 2 to 3 days which came on suddenly. 1. Acute Sepsis secondary to Acute Dyspnea, Cough, Fever with Hypoxia secondary to Presumed Acute Viral Syndrome, COVID-19: Rapid Covid negative but given presentation with hypoxia, fever, CBC with no marked WC elevation but lymphopenia present higher suspicion for Covid, Covid PCR pending. Will admit to the COVID unit, will maintain on oxygen with wean as tolerated to room air, PRN albuterol, HOB, IS parameters w/ pending sputum cultures, respiratory viral panel and urine antigens, will obtain D-dimer, procalcitonin, CRP, CPK, Ferritin, LDH, trop and BNP, continue supportive care including q 2 hour turning and judicious hydration, closely monitor for worsening status for ARDS and multiorgan failure, will consult Infectious disease, will initiate and continue IV decadron x 10 doses, given presentation will also initiate IV remdesivir but defer to discretion of Infectious disease. PT, OT, case management consultations for discharge planning. 2. Hyperglycemia: Admission glucose 144, hemoglobin A1c pending to be cautious. 3. Persistent AF with RVR: Patient upon presentation with atrial fibrillation with RVR, improved with Tylenol administration given extremely febrile upon presentation however intermittently recurrent in the ED, will maintain on telemetry monitoring, will administer Cardizem 10 mg IV bolus x1 andsince metoprolol early, continue Coumadin with INR trending. 4. 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 5. CAD: Status post CABG HEWITT to LAD, SVG to LCx, continue Coumadin with INR trending, metoprolol, losartan, statin therapy. Patient approximately 2 weeks following CABG did have onset large pericardial effusion requiring drainage. 6. History of prostate cancer: We will continue patient enzalutamide regimen, also noted to be on outpatient every 3 month leuprolide regimen. Encourage continued outpatient follow-up with oncology, noted to be in remission. 7. History of trauma with thoracic fracture, right-sided pneumothoraces, subarachnoid hemorrhage, left frontal subdural hematoma: Patient with significant injury 12/2018, surgical intervention to the spine at that time, anticoagulation had been held but has been since restarted and cleared per neurosurgery. 8. Hypertension: Continue home regimen including losartan, metoprolol, trazodone with hold parameters, PRN hydralazine. 9. Hyperlipidemia: Continue home statin regimen. 10. Chronic normocytic anemia: Admission hemoglobin 11.7, baseline appears 1112, stable, trend. 11. Morbid Obesity: Weight loss and lifestyle changes encouraged. 12. Former tobacco use: Encourage continued tobacco cessation. 13. DVT prophylaxis: SCDs, Coumadin with INR trending. 14. CODE status: Patient does not have healthcare power of attorney general nor living will. Encouraged him to set up these items especially given his underlying comorbidities. Given admission and concern for possible Covid, discussed CODE status at length including difference between FULL code, DNR-CCA and DNR-CC status. Following discussions about the differences in these status, requested Full Code status. Advanced Care Planning Face to Face Time: 16 minutes. Inpatient E&M: 10339 Init Hosp L3 Procedures: 17282 Advncd Care Plan 30 Min
[2021-01-05 07:03] LABS: D-Dimer Quantitative (DVT/PE) 3.62 FEU/ug/m (0.27-0.49)
[2021-01-05 08:19] LABS: Ferritin 204 ng/mL (26-388); LDH 283 U/L (87-241); Magnesium 1.6 mg/dL (1.6-2.6)
[2021-01-05] MEDS: 0.9% Normal Saline 1,000 ML 100 ML IV (08:30)
[2021-01-05] MEDS: Metoprolol Tartrate 50 MG Tablet PO ×2 (09:28→21:18)
[2021-01-05] MEDS: Loratadine 10 MG Tablet PO (09:28)
[2021-01-05] MEDS: dilTIAZem 25 MG/5 ML Vial 10 MG IV BOLUS (09:28)
[2021-01-05] MEDS: Potassium Chloride Oral Tablet 20 MEQ PO ×2 (09:28→15:18)
[2021-01-05] MEDS: dexAMETHasone 10 MG/ML Vial 6 MG IV (09:29)
[2021-01-05] MEDS: Losartan Potassium 100 MG Tablet PO (09:29)
[2021-01-05 09:47] LABS: Procalcitonin 0.08 ng/mL (0.00-0.09)
--- NOTE | 2021-01-05 11:43 | PCM.HOSP.N ---
Hospitalist Note Patient was seen and examined today, he has no respiratory symptoms-no cough no sputum production, his PCR for COVID-19 was negative, his chest x-ray was negative. I feel the patient could be moved to PCU at this time, his respiratory panel is pending but I think this will most likely be negative. Patient does have evidence of a cystitis, I will keep him on Rocephin, the other thing that I am concerned about is he is currently requiring oxygen, he is in chronic atrial fib and I am worried that he could have an element of diastolic heart failure. His last echocardiogram was 2 years ago and it showed a normal EF. I will give the patient 1 dose of Lasix and see how he responds to this.
--- NOTE | 2021-01-05 12:59 | CM.UR ---
RN CM Assessment Introduced role of RN CM to patient.? Patient is alert, oriented and able?to participate in RN CM Assessment. ?Care providers, pharmacy, and demographics verified. Presentation: + weakness, fell x2 this week Admit Dx: Sepsis, hypoxia Re-Admit: no Barriers/Issues: none PCP: Dr. Pisano Specialists: Dr. Muñoz, Dr. Christy, Dr. Rosales, Dr. Macias (neuro) and Dr. Booker (spine ortho surgeon). Preferred Pharmacy: [facility] Insurance: [facility] Rx Benefit:? Yes. States as long as he keeps working he doesn't have any problems affording medications. Continues to work 30 hrs a week. LNOK: brotherYossi LW/HPOA: none Living Arrangements:? Lives in apartment. 6 steps into building. 2 steps into [address] lot. ADL?s: Independent. States having trouble cooking d/t bilateral hand weakness. Transportation: Self, does have friends that can pick him up. 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 CPAP is from [employer]. HHC: States several years ago in [place], doesn't remember what agency. SNF: [facility] Goal: Home, denies any needs. DC PLAN: Home, no needs anticipated at this time. Alerted patient that case management will remain available should any needs arise. Verb understanding. Jacqueline Harris, RN, [facility].
[2021-01-05] MEDS: Furosemide 40 MG Tablet PO (15:17)
[2021-01-05] MEDS: Atorvastatin Calcium 80 MG Tablet PO (21:17)
[2021-01-05] MEDS: Doxazosin 4 MG Tablet 8 MG PO (21:18)
--- NOTE | 2021-01-05 22:26 | CT_ITS ---
STUDY: CT CHEST WITHOUT CONTRAST REASON FOR EXAM: Male, 75 years old. Dyspnea RADIATION DOSAGE (If Supplied By Facility): CTDIvol = ( 20.15 ) mGy, DLP = ( 735.08 ) mGycm TECHNIQUE: Transaxial imaging was performed without the administration of intravenous contrast material. Individualized dose optimization techniques were used for this CT. COMPARISON: 12/28/2020. FINDINGS: Mild cardiac enlargement. Prior sternotomy and CABG. The aorta is normal in caliber. There is no mediastinal mass. Calcified mediastinal and left hilar lymph nodes consistent with old granulomatous disease. There is no pleural effusion. There is no pulmonary consolidation. Mild fibrotic changes are noted in the lung periphery, with no significant change compared to the prior study. 2 mm nonobstructing calcification in the upper pole the right kidney. Visualized abdomen is otherwise unremarkable. There is no acute osseous abnormality. Multilevel thoracic fusion with spinal rods. CT/Chest without Contrast IMPRESSION: 1. No acute findings. 2. Mild, stable interstitial fibrosis. 3. Nonobstructing right renal stone. Electronically Signed: Sofi Dunlap MD at 23:54 EST Tel , Service support ,
[2021-01-05] MEDS: ENZALUTAMIDE 40 MG CAPSULE 160 MG PO (22:38)
[2021-01-05] MEDS: Acetaminophen 325 MG Tablet 650 MG PO (23:26)
[2021-01-06] VITALS (16 sets, daily range): BP systolic 110–149; BP diastolic 55–83; PULSE 89–108; RESP 18–20; TEMP 36.5–37.9; O2SAT 88–97
[2021-01-06 06:37] LABS: Absolute Lymphocyte Count 0.65 X10^3/uL (0.83-4.51); Absolute Neutrophil Count 4.3 X10^3/uL (2.0-7.7); Basophil# 0.02 X10^3/uL; Basophil% 0.4 % (0-1); Eosinophil# 0.12 X10^3/uL; Eosinophils% 2.1 % (0-5); Hematocrit 34.6 % (40-54); Hemoglobin 11.3 g/dL (13.0-16.5); Lymphocyte # 0.65 X10^3/ul (4.0); Lymphocyte % 11.5 % (19-41); Mean Corp Hgb Conc 32.7 g/dL (32-36); Mean Corpuscular Hgb 28.8 pg (27.0-32.0); Mean Corpuscular Volume 88.3 fL (80-94); Mean Platelet Vol. 9.2 fl (6.2-12.0); Monocyte# 0.57 X10^3/uL; Monocyte% 10.1 % (0-10); NRBC Flagged by Analyzer 0 % (0-5); Neutrophil # 4.27 X10^3/uL (2.7-7.7); Neutrophil % 75.5 % (47-70); Platelet Count 129 K/mm3 (150-450); RBC Distribution Width CV 13.1 % (11.6-14.6); Red Blood Count 3.92 M/mm3 (4.6-6.2); White Blood Count 5.7 K/mm3 (4.4-11.0)
[2021-01-06 06:52] LABS: International Normalized Ratio 2.1; Prothrombin Time (Protime)PT. 22.9 SECONDS (11.7-14.9)
[2021-01-06 07:04] LABS: ALB/GLOB Ratio 0.7 RATIO (0.9-2.4); AST(SGOT) 39 U/L (15-37); Alanine Aminotransfer ALT/SGPT 21 U/L (16-61); Albumin, Serum 2.6 g/dL (3.2-5.0); Alkaline Phosphatase 105 U/L (45-117); Anion Gap 7 (5-15); BUN 20 mg/dL (7-18); BUN/Creat Ratio 31.1 RATIO (10-20); Calcium,Total 8.6 mg/dL (8.5-10.1); Chloride 109 mmol/L (98-107); Creatinine, Serum 0.64 mg/dL (0.70-1.30); EST Glomerular Filtration Rate 129 mL/min (>60); Est Glom Filt Rate - Afr Amer 156 mL/min (>60); Estimated Creatinine Clearance 72.21 ml/min; Globulin 3.8 g/dL (2.2-4.2); Glucose 106 mg/dL (74-106); Potassium 3.2 mmol/L (3.5-5.1); Protein, Total 6.4 g/dL (6.4-8.2); Sodium Level 144 mmol/L (136-145)
[2021-01-06] MEDS: Acetaminophen 325 MG Tablet 650 MG PO ×2 (08:35→21:26)
--- NOTE | 2021-01-06 09:18 | PN_ITS ---
Patient Problems: Active and Suspected Problems (Last Reviewed 10/29/20 @ 14:19 by Janet MERCADO, PA) Sepsis (Acute) COVID-19 (Suspected) Hypoxia (Acute) Subjective: Patient was seen and examined today, he is on room air at this time, patient had a CT of his chest performed and it showed some pulmonary fibrosis but no in filtrate or fluid. A nonobstructing right kidney stone was noted. Patient states today that he is very tired and he would like to have physical therapy again today and perhaps look at going home tomorrow. Patient's urine and blood cultures are pending at this time. - Physical Exam Vitals/I&O's: Vital Signs Temp Pulse Resp BP Pulse Ox 98.3 F 108 H 18 139/71 H 93 01/06/21 04:45 01/06/21 07:00 01/06/21 04:45 01/06/21 04:45 01/06/21 07:03 Oxygen Flow Rate (L/min) 2 Oxygen Delivery Method Room Air Weight: 130.8 kg Body Mass Index (BMI) 39.2 Intake and Output for Last 24 Hours 01/04/21 01/05/21 01/06/21 23:59 23:59 23:59 Intake Total 936.67 / 1056.67 120 / 120 Output Total 50 / 525 650 / 650 Balance 886.67 / 531.67 -530 / -530 General: Alert, Oriented x3, Cooperative, No apparent distress, Well developed, Well nourished HEENT: Atraumatic, PERRLA, EOMI, Normocephalic Oral: Moist Mucosa Neck: Supple, No JVD, Trachea Midline, Thyroid Normal Size and Texture Lungs: Clear to auscultation, Normal air movement, No rhonchi, No wheeze, No rales Cardiovascular: Regular rate, Regular Rhythm, Normal S1, Normal S2, No murmurs, PMI Normal, No rub noted, No Gallop Abdomen: Bowel Sounds Present, Soft, Non Tender, Non-Distended Extremities: No clubbing, No cyanosis, No edema, Capillary Refill Less than 3 Seconds Skin: No rashes, No breakdown Musculoskeletal: No Tenderness to Palpation of Joints or Extremities Neurological: Cranial nerves II-XII grossly intact, Neuro grossly intact, Sensory exam intact to light touch and pain Psych/Mental Status: Normal Affect, Appropriate, Alert and oriented to time, place, person, mood and affect Microbiology Past 72 Hours 01/05/21 05:50 Mucosa - Nose Respiratory Panel (PCR) - Final 01/05/21 05:22 Urine, Clean Catch Legionella Antigen - Final 01/05/21 05:22 Urine, Clean Catch Streptococcus pneumoniae Antigen (M - Final 01/05/21 03:13 Mucosa - Nasopharyngeal SARS-CoV-2 Antigen (Rapid) - Final Laboratory Results 01/05/21 07:00: Procalcitonin 0.08 01/06/21 05:39: WBC 5.7, RBC 3.92 L, Hgb 11.3 L, Hct 34.6 L, MCV 88.3, MCH 28.8, MCHC 32.7, RDW Std Deviation 42.0, RDW Coeff of Dick 13.1, Plt Count 129 L, MPV 9.2, Immature Gran % (Auto) 0.400, Neut % (Auto) 75.5 H, Lymph % (Auto) 11.5 L, [place] % (Auto) 10.1 H, Eos % (Auto) 2.1, Baso % (Auto) 0.4, Absolute Neuts (auto) 4.3, Absolute Lymphs (auto) 0.65 L, Nucleated RBC % 0 01/06/21 05:39: PT 22.9 H, INR 2.1 01/06/21 05:39: Sodium 144, Potassium 3.2 L, Chloride 109 H, Carbon Dioxide 28.0, Anion Gap 7, BUN 20 H, Creatinine 0.64 L, Estim Creat Clear Calc 72.21, Est GFR (MDRD) Af Amer 156, Est GFR (MDRD) Non-Af 129, BUN/Creatinine Ratio 31.1 H, Glucose 106, Calcium 8.6, Total Bilirubin 1.10 H, AST 39 H, ALT 21, Alkaline Phosphatase 105, Total Protein 6.4, Albumin 2.6 L, Globulin 3.8, Albumin/Globulin Ratio 0.7 L Current Medications Acetaminophen (Acetaminophen 325 Mg Tablet) 650 mg PO Q6H PRN PRN PRN Reason: Pain Score 1-10/Temp > 100.7 F Last Admin: 01/06/21 08:35 Dose: 650 mg Documented by: Atorvastatin Calcium (Atorvastatin Calcium 80 Mg Tablet) 80 mg PO QHS [facility] Last Admin: 01/05/21 21:17 Dose: 80 mg Documented by: Doxazosin Mesylate (Doxazosin 4 Mg Tablet) 8 mg PO QHS [facility] Last Admin: 01/05/21 21:18 Dose: 8 mg Documented by: Sodium Chloride () 250 mls @ 15 mls/hr IV .[id number] PRN PRN Reason: Saline Flush Ceftriaxone Sodium (Rocephin) 1 gm in 50 mls @ 100 mls/hr IV Q24 [facility] Loratadine (Loratadine 10 Mg Tablet) 10 mg PO DAILY [facility] Last Admin: 01/05/21 09:28 Dose: 10 mg Documented by: Losartan Potassium (Losartan Potassium 100 Mg Tablet) 100 mg PO DAILY [facility] Last Admin: 01/05/21 09:29 Dose: 100 mg Documented by: Metoprolol Tartrate (Metoprolol Tartrate 50 Mg Tablet) 50 mg PO BID [facility] Last Admin: 01/05/21 21:18 Dose: 50 mg Documented by: Ondansetron HCl (Ondansetron 4 Mg/2 Ml Vial) 4 mg IV Q8H PRN PRN PRN Reason: NAUSEA/VOMITING Senna/Docusate Sodium (Senna/Docusate Sodium 1 Tablet) 2 tablet PO BID PRN PRN PRN Reason: Constipation Sodium Chloride (0.9% Saline Lock 10 Ml Syringe) 10 - 40 ml IV UD PRN PRN Reason: SALINE FLUSH Warfarin Sodium (Warfarin 5 Mg Tablet) 5 mg PO SuSa@1700 [facility] Last Admin: 01/05/21 18:10 Dose: 5 mg Documented by: Warfarin Sodium (Warfarin 7.5 Mg Tablet) 7.5 mg PO MoTuWeThFr@1700 [facility] Medical Necessity - Tobacco Use Smoking Status: Former smoker Tobacco Use: Non-smoker Assessment/Plan All Active Problems (Last Reviewed 10/29/20 @ 14:19 by Janet MERCADO, PA) Sepsis (Acute) Hypoxia (Acute) #1 sepsis-probably secondary to a urinary tract infection, we are awaiting patient's urine and blood cultures to come back, I have elected to keep him on Rocephin at the present time. 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
[2021-01-06] MEDS: Ceftriaxone 1 GM/50 ML BAG IV (09:19)
[2021-01-06] MEDS: Potassium Chloride Oral Tablet 20 MEQ PO (09:22)
[2021-01-06] MEDS: 0.9% Saline Lock 10 ML Syringe IV (09:22)
[2021-01-06] MEDS: Loratadine 10 MG Tablet PO (09:22)
[2021-01-06] MEDS: Metoprolol Tartrate 50 MG Tablet PO ×2 (09:28→21:27)
[2021-01-06] MEDS: Losartan Potassium 100 MG Tablet PO (09:28)
[2021-01-06] MEDS: Fluticasone 0.05% 1 SPRAY NASAL.SRY NASAL ×2 (14:38→21:26)
[2021-01-06] MEDS: ENZALUTAMIDE 40 MG CAPSULE 160 MG PO (21:26)
[2021-01-06] MEDS: Doxazosin 4 MG Tablet 8 MG PO (21:26)
[2021-01-06] MEDS: Atorvastatin Calcium 80 MG Tablet PO (21:26)
[2021-01-07] VITALS (17 sets, daily range): BP systolic 126–158; BP diastolic 63–89; PULSE 78–143; RESP 16–20; TEMP 35.8–37.4; O2SAT 92–97
--- NOTE | 2021-01-07 08:11 | PN_ITS ---
Patient Problems: Active and Suspected Problems (Last Reviewed 10/29/20 @ 14:19 by Janet Sweeney PA, PA) Sepsis (Acute) COVID-19 (Suspected) Hypoxia (Acute) Subjective: Chief complaint: Follow-up after admission for sepsis, hypoxia, suspected COVID- 19 infection, physical debility. Patient seen and examined. No acute events overnight. He complains of being weak, not able to ambulate. He complained of chills. Denied shortness of breath, sputum production. He reported abdominal cramps yesterday 1 episode of diarrhea. Maximum temperature overnight was 99.3 Fahrenheit, blood pressure and heart rate are stable, pulse ox is 96% on 2 L. - Physical Exam Vitals/I&O's: Vital Signs Temp Pulse Resp BP Pulse Ox 97.6 F L 102 H 16 131/76 H 95 01/07/21 05:00 01/07/21 07:01 01/07/21 05:00 01/07/21 05:00 01/07/21 07:42 Oxygen Flow Rate (L/min) 2 Oxygen Delivery Method Nasal Cannula Weight: 286 lb 9.615 oz Body Mass Index (BMI) 39.2 Intake and Output for Last 24 Hours 01/05/21 01/06/21 01/07/21 23:59 23:59 23:59 Intake Total 936.67 / 1056.67 890 / 1010 120 / 120 Output Total 50 / 525 800 / 1125 325 / 325 Balance 886.67 / 531.67 90 / -115 -205 / -205 General: Alert, Oriented x3, Cooperative, No apparent distress HEENT: Atraumatic, PERRLA, EOMI, Normocephalic Oral: Moist Mucosa, No Gingival or Mucosal Lesions/ Ulcerations Neck: Supple, No JVD, Negative Carotid Bruits, Trachea Midline, Thyroid Normal Size and Texture Lungs: Clear to auscultation, No rhonchi, No wheeze, No rales, Diminished Cardiovascular: Regular rate, Regular Rhythm, Normal S1, Normal S2, PMI Normal Abdomen: Bowel Sounds Present, Soft, Non Tender, Non-Distended, No Hepato-s plenomegaly, Obese Extremities: No clubbing, No cyanosis, Edema Skin: No rashes, No breakdown Lymphatic: No Cervical, Supraclavicular, or Inguinal Adenopathy Neurological: Cranial nerves II-XII grossly intact, Motor Exam 5/5 strength throughout Psych/Mental Status: Normal Affect, Appropriate, Alert and oriented to time, place, person, mood and affect Microbiology Past 72 Hours 01/05/21 03:25 Blood Culture (Wb) - No Site/Description Given Blood Culture - Preliminary No growth in 48 hours. 01/05/21 03:20 Blood Culture (Wb) - Anticubital Left Blood Culture - Preliminary No growth in 48 hours. 01/05/21 05:22 Urine, Clean Catch Urine Culture - Preliminary Culture exhibits no growth. 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 Electronically Signed: Edyta Carroll MD at 4:53 EST Tel , Service support , Chest X-Ray 01/05/21 03:30 IMPRESSION: Normal x-ray examination of the chest. Electronically Signed: Edyta Carroll MD at 4:58 EST Tel , Service support , Chest CT 01/05/21 22:26 IMPRESSION: 1. No acute findings. 2. Mild, stable interstitial fibrosis. 3. Nonobstructing right renal stone. Electronically Signed: Sofi Dunlap MD at 23:54 EST Tel , Service support , Current Medications Acetaminophen (Acetaminophen 325 Mg Tablet) 650 mg PO Q6H PRN PRN PRN Reason: Pain Score 1-10/Temp > 100.7 F Last Admin: 01/06/21 21:26 Dose: 650 mg Documented by: Atorvastatin Calcium (Atorvastatin Calcium 80 Mg Tablet) 80 mg PO QHS [facility] Last Admin: 01/06/21 21:26 Dose: 80 mg Documented by: Doxazosin Mesylate (Doxazosin 4 Mg Tablet) 8 mg PO QHS [facility] Last Admin: 01/06/21 21:26 Dose: 8 mg Documented by: Fluticasone Propionate (Fluticasone 0.05% 1 [place] Nasal.Sry) 1 spray NASAL BID [facility] Last Admin: 01/06/21 21:26 Dose: 1 spray Documented by: Sodium Chloride () 250 mls @ 15 mls/hr IV .[id number] PRN PRN Reason: Saline Flush Ceftriaxone Sodium (Rocephin) 1 gm in 50 mls @ 100 mls/hr IV Q24 [facility] Last Infusion: 01/06/21 09:49 Dose: Infused Documented by: Loratadine (Loratadine 10 Mg Tablet) 10 mg PO DAILY [facility] Last Admin: 01/06/21 09:22 Dose: 10 mg Documented by: Losartan Potassium (Losartan Potassium 100 Mg Tablet) 100 mg PO DAILY [facility] Last Admin: 01/06/21 09:28 Dose: 100 mg Documented by: Metoprolol Tartrate (Metoprolol Tartrate 50 Mg Tablet) 50 mg PO BID [facility] Last Admin: 01/06/21 21:27 Dose: 50 mg Documented by: Ondansetron HCl (Ondansetron 4 Mg/2 Ml Vial) 4 mg IV Q8H PRN PRN PRN Reason: NAUSEA/VOMITING Senna/Docusate Sodium (Senna/Docusate Sodium 1 Tablet) 2 tablet PO BID PRN PRN PRN Reason: Constipation Sodium Chloride (0.9% Saline Lock 10 Ml Syringe) 10 - 40 ml IV UD PRN PRN Reason: SALINE FLUSH Last Admin: 01/06/21 09:22 Dose: 10 ml Documented by: Warfarin Sodium (Warfarin 5 Mg Tablet) 5 mg PO SuSa@1700 [facility] Last Admin: 01/06/21 17:07 Dose: 5 mg Documented by: Warfarin Sodium (Warfarin 7.5 Mg Tablet) 7.5 mg PO MoTuWeThFr@1700 [facility] Medical Necessity - Tobacco Use Smoking Status: Former smoker Tobacco Use: Non-smoker Assessment/Plan All Active Problems (Last Reviewed 10/29/20 @ 14:19 by Janet MERCADO, PA) Sepsis (Acute) Hypoxia (Acute) This is a 75 years old male patient presented to the emergency room because of weakness, malaise, fever and falls, found to have sepsis without obvious source of infection, COVID-19 suspected although COVID-19 antigen and PCR was negative, found to have hypoxia as well. #1 acute sepsis: Without clear source of infection although COVID-19 is suspected. Chest x-ray showed no acute findings. CT scan chest without contrast showed no infiltrate or consolidation. COVID-19 antigen and PCR were negative. Blood culture showed no growth in 48 hours, urine culture showed no growth as well. Pneumococcal and Legionella antigen were negative. At this time, I doubt UTI as well. Patient is on IV Rocephin empirically. LDH, CRP and BNP was elevated. Procalcitonin was normal. Infectious disease consulted. Plan to continue same treatment, repeat CBC and BMP in the morning, awaiting infectious disease recommendations. #2 hypoxia: He is requiring of up to 2 L of oxygen. Chest x-ray and CT chest reviewed as above. Plan to wean off oxygen as tolerated. #3 physical debility/functional decline: Plan for PT OT evaluation and treatment, patient may need placement to retirement facility. #4 CAD status post CABG: Stable, continue statins, losartan metoprolol. #5 chronic atrial fibrillation: Heart rate stable, continue metoprolol for rate control and Coumadin for anticoagulation. INR is therapeutic. #6 history of prostate cancer: Stable, patient is on leuprolide every 3 months. #7 hypertension: Blood pressure stable, continue losartan and metoprolol. #8 chronic anemia: Hemoglobin and hematocrit are stable. #9 hyperlipidemia: Continue statins. #10 DVT prophylaxis: On Coumadin, INR is 2.1. This note was generated with [employer] software. It may contain incorrect words, spelling, and punctuation that were not noted in checking the note before signing. Inpatient E&M: 84252 Subs Hosp L2
[2021-01-07] MEDS: Fluticasone 0.05% 1 SPRAY NASAL.SRY NASAL ×2 (09:53→21:43)
[2021-01-07] MEDS: Ceftriaxone 1 GM/50 ML BAG IV (09:53)
[2021-01-07] MEDS: Metoprolol Tartrate 50 MG Tablet PO ×2 (09:53→21:59)
[2021-01-07] MEDS: Losartan Potassium 100 MG Tablet PO (09:54)
[2021-01-07] MEDS: 0.9% Saline Lock 10 ML Syringe IV ×4 (09:54→21:46)
[2021-01-07] MEDS: Potassium Chloride Oral Tablet 20 MEQ 60 MEQ PO (09:54)
[2021-01-07] MEDS: Loratadine 10 MG Tablet PO (09:54)
--- NOTE | 2021-01-07 13:25 | CASEMGMT ---
SW met with patient. Introduced self and role at [facility]. SW asked patient if he feels like he is safe to go home at discharge. He wasn't sure he is strong enough. SW asked if he feels he needs to go to a retirement facility for rehab. He said if that is being recommended then that is what he will do. He asked about [facility]. SW told him SW can check to see if they are in network and if they have any beds. SW also told him SW will bring him a list of local facilities. RAHEEM called [facility] and left a message with referral. However, per RN patient is being tested again for COVID and they may be starting treatment. Await these results. Patient would not be able to go to TCU if he is positive for COVID. Mary Jane BANERJEE MSW
--- NOTE | 2021-01-07 14:21 | NURSING ---
Gave report to Ludivina BILLY in ICU
--- NOTE | 2021-01-07 15:01 | CON.PCM_ITS ---
Problem List (1) COVID-19 Status: Suspected Reason for Consult: suspected covid Consulted by: Dr. Barajas History of Present Illness: The patient is a 75 year old M who got 1st dose covid shot about 10-14 days ago, presented 01/05 with sx since 01/02, c/o weakness, dry cough, dyspnea, chills, headache, fall x2 at home, and diarrhea. No sick contacts. No change in taste or smell. No muscle aches. Lives alone, has a home health aide. Came to ED, covid Ag and PCR neg. Started on ceftriaxone, given dose of dex and remdesivir. Feeling a little better, still on O2. Full ROS performed and neg except as noted above. 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 Per Dr. Corby Moura @ [facility]. Atherosclerotic heart disease of [place] coronary artery without angina pectoris (Chronic) HEWITT to LAD, SVG to Lateral CX with radial artery examination. Per Dr. Corby Moura @ [facility]. Persistent atrial fibrillation (Chronic) group home (current) use of anticoagulants (Chronic) Allergies/Adverse Reactions: Allergies amiodarone Adverse Reaction (Intermediate, Verified 01/05/21 03:07) It did not work, also bad dreams and neuropathy Home Medications: Ambulatory Orders Medication Instructions Recorded Atorvastatin Calcium [Lipitor] 80 mg PO QHS 04/02/16 potassium chloride 20 mEq 20 meq PO DAILY 12/03/18 tablet,extended release Cetirizine HCl [Zyrtec] 10 mg PO DAILY 12/27/18 acetaminophen 325 mg tablet 650 mg PO Q4H PRN tab 03/09/19 cromolyn 5.2 mg/spray (4 %) nasal 2 spray INTRANASAL DAILY ml 03/09/19 spray triamcinolone acetonide 55 mcg 2 spray INTRANASAL DAILY 03/09/19 nasal spray aerosol metoprolol tartrate 50 mg tablet 50 mg PO BID 03/15/19 terazosin 10 mg capsule 10 mg PO QHS 03/15/19 leuprolide (3 month) 22.5 mg (3 11.25 mg IM [id number] 04/23/20 month) intramuscular syringe kit losartan 100 mg tablet 100 mg PO DAILY 04/23/20 warfarin 5 mg tablet 5 mg PO .COMPLEX #120 tab 06/04/20 cholecalciferol (vitamin D3) 1,250 1,000 unit PO ONCE cap 10/29/20 mcg (50,000 unit) capsule Enzalutamide [Xtandi] 160 mg PO DAILY 01/05/21 - Social History SMOKING STATUS:: Former smoker Vital Signs Temp Pulse Resp BP Pulse Ox 98.4 F 101 H 18 126/63 H 92 01/07/21 14:27 01/07/21 14:27 01/07/21 14:27 01/07/21 14:27 01/07/21 14:27 Oxygen Flow Rate (L/min) 2 Oxygen Delivery Method Nasal Cannula Weight: 130 kg Body Mass Index (BMI) 39.2 Microbiology Past 72 Hours 01/05/21 05:22 Urine Culture - Final Urine, Clean Catch Culture exhibits no growth. 01/05/21 03:25 Blood Culture - Preliminary Blood Culture (Wb) - No Site/Description Given No growth in 48 hours. 01/05/21 03:20 Blood Culture - Preliminary Blood Culture (Wb) - Anticubital Left No growth in 48 hours. 01/05/21 05:50 Respiratory Panel (PCR) - Final Mucosa - Nose 01/05/21 05:22 Legionella Antigen - Final Urine, Clean Catch Streptococcus pneumoniae Antigen (M - Final 01/05/21 03:13 SARS-CoV-2 Antigen (Rapid) - Final Mucosa - Nasopharyngeal Laboratory Tests Past 24 Hrs 01/07/21 13:06 COVID-19 (CRYSTAL) Pending - Other Studies Radiology: [] reviewed Other Studies: [] Route of nutrition/ use of supplements: [] Nutritional Intake: [] IV Site: [] Gutierrez Catheter: [] - Physical Exam General: Alert, Cooperative HEENT: Atraumatic, PERRLA, EOMI Neck: Supple, No Nodes Lungs: Diminished Cardiovascular: Regular rate, Regular Rhythm Abdomen: Soft, Non Tender, Non-Distended Extremities: No edema Skin: No rashes IV Site: Peripheral, without redness Musculoskeletal: No Tenderness to Palpation of Joints or Extremities Neurological: Cranial nerves II-XII grossly intact - Assessment/Plan Antibiotics: [] Assessment/Plan: [] Active and Suspected Problems (Last Reviewed 10/29/20 @ 14:19 by Janet Sweeney PA, PA) Sepsis (Acute) COVID-19 (Suspected) Hypoxia (Acute) suspected covid - sx started 01/02, typical covid sx along with elevated d-dimer and lymphopenia. Will check repeat pcr, restart isolation and dex/remdesivir. Stop ceftriaxone. On coumadin. PCT normal, UAg neg, resp pcr panel neg, UA neg, Ucx neg. Will follow, thank you, d/w nursing.
[2021-01-07] MEDS: Acetaminophen 325 MG Tablet 650 MG PO (15:39)
[2021-01-07] MEDS: dexAMETHasone 4 MG Tablet 6 MG PO (16:00)
[2021-01-07] MEDS: ENZALUTAMIDE 40 MG CAPSULE 160 MG PO (21:44)
[2021-01-07] MEDS: Doxazosin 4 MG Tablet 8 MG PO (21:59)
[2021-01-07] MEDS: Atorvastatin Calcium 80 MG Tablet PO (22:00)
[2021-01-08] VITALS (13 sets, daily range): BP systolic 119–137; BP diastolic 66–77; PULSE 72–93; RESP 16–24; TEMP 36.3–36.8; O2SAT 94–97
[2021-01-08] MEDS: Metoprolol Tartrate 50 MG Tablet PO ×2 (08:51→22:10)
[2021-01-08] MEDS: Loratadine 10 MG Tablet PO (08:51)
[2021-01-08] MEDS: Fluticasone 0.05% 1 SPRAY NASAL.SRY NASAL ×2 (08:51→22:10)
[2021-01-08] MEDS: Losartan Potassium 100 MG Tablet PO (08:51)
[2021-01-08] MEDS: dexAMETHasone 4 MG Tablet 6 MG PO (08:51)
--- NOTE | 2021-01-08 09:45 | PCM.PN.ID ---
Patient Problems: Active and Suspected Problems (Last Reviewed 10/29/20 @ 14:19 by Janet Sweeney PA, PA) Sepsis (Acute) COVID-19 (Suspected) Hypoxia (Acute) Subjective: Feeling better, no fever, no aches, no cough or SOB - Physical Exam Vitals/I&O's: Vital Signs Temp Pulse Resp BP Pulse Ox 97.4 F L 82 16 120/68 95 01/08/21 08:50 01/08/21 08:51 01/08/21 08:50 01/08/21 08:50 01/08/21 08:50 Oxygen Flow Rate (L/min) 2 Oxygen Delivery Method Nasal Cannula Weight: 130.2 kg Body Mass Index (BMI) 39.2 Intake and Output for Last 24 Hours 01/06/21 01/07/21 01/08/21 23:59 23:59 23:59 Intake Total 890 / 1010 872.5 / 872.5 Output Total 800 / 1125 825 / 825 200 / 200 Balance 90 / -115 47.5 / 47.5 -200 / -200 General: Alert, Cooperative, No apparent distress Lungs: Clear to auscultation, Diminished Cardiovascular: Regular rate, Regular Rhythm Abdomen: Soft, Non Tender, Non-Distended Skin: No rashes Microbiology Past 72 Hours 01/05/21 05:22 Urine, Clean Catch Urine Culture - Final Culture exhibits no growth. 01/05/21 03:25 Blood Culture (Wb) - No Site/Description Given Blood Culture - Preliminary No growth in 48 hours. 01/05/21 03:20 Blood Culture (Wb) - Anticubital Left Blood Culture - Preliminary No growth in 48 hours. 01/05/21 05:50 Mucosa - Nose Respiratory Panel (PCR) - Final 01/05/21 05:22 Urine, Clean Catch Legionella Antigen - Final 01/05/21 05:22 Urine, Clean Catch Streptococcus pneumoniae Antigen (M - Final 01/05/21 03:13 Mucosa - Nasopharyngeal SARS-CoV-2 Antigen (Rapid) - Final Laboratory Results 01/07/21 13:06: COVID-19 (CRYSTAL) Not Detected Current Medications Acetaminophen (Acetaminophen 325 Mg Tablet) 650 mg PO Q6H PRN PRN PRN Reason: Pain Score 1-10/Temp > 100.7 F Last Admin: 01/07/21 15:39 Dose: 650 mg Documented by: Atorvastatin Calcium (Atorvastatin Calcium 80 Mg Tablet) 80 mg PO QHS [facility] Last Admin: 01/07/21 22:00 Dose: 80 mg Documented by: Dexamethasone (Dexamethasone 4 Mg Tablet) 6 mg PO DAILY [facility] Stop: 01/15/21 10:01 Last Admin: 01/08/21 08:51 Dose: 6 mg Documented by: Doxazosin Mesylate (Doxazosin 4 Mg Tablet) 8 mg PO QHS [facility] Last Admin: 01/07/21 21:59 Dose: 8 mg Documented by: Fluticasone Propionate (Fluticasone 0.05% 1 [place] Nasal.Sry) 1 spray NASAL BID [facility] Last Admin: 01/08/21 08:51 Dose: 1 spray Documented by: Sodium Chloride () 250 mls @ 15 mls/hr IV .[id number] PRN PRN Reason: Saline Flush Last Infusion: 01/07/21 18:16 Dose: 0 mls/hr Documented by: Remdesivir 100 mg/ Sodium (Chloride) 250 mls @ 125 mls/hr IV DAILY [facility]; Protocol Stop: 01/10/21 11:59 Last Infusion: 01/07/21 17:26 Dose: Infused Documented by: Loratadine (Loratadine 10 Mg Tablet) 10 mg PO DAILY [facility] Last Admin: 01/08/21 08:51 Dose: 10 mg Documented by: Losartan Potassium (Losartan Potassium 100 Mg Tablet) 100 mg PO DAILY [facility] Last Admin: 01/08/21 08:51 Dose: 100 mg Documented by: Metoprolol Tartrate (Metoprolol Tartrate 50 Mg Tablet) 50 mg PO BID [facility] Last Admin: 01/08/21 08:51 Dose: 50 mg Documented by: Ondansetron HCl (Ondansetron 4 Mg/2 Ml Vial) 4 mg IV Q8H PRN PRN PRN Reason: NAUSEA/VOMITING Senna/Docusate Sodium (Senna/Docusate Sodium 1 Tablet) 2 tablet PO BID PRN PRN PRN Reason: Constipation Sodium Chloride (0.9% Saline Lock 10 Ml Syringe) 10 - 40 ml IV UD PRN PRN Reason: SALINE FLUSH Last Admin: 01/07/21 21:46 Dose: 10 ml Documented by: Warfarin Sodium (Warfarin 5 Mg Tablet) 5 mg PO SuSa@1700 [facility] Last Admin: 01/06/21 17:07 Dose: 5 mg Documented by: Warfarin Sodium (Warfarin 7.5 Mg Tablet) 7.5 mg PO Wilfrid@1700 [facility] Last Admin: 01/07/21 16:00 Dose: 7.5 mg Documented by: Medical Necessity - Tobacco Use Smoking Status: Former smoker Tobacco Use: Non-smoker Route of nutrition/ use of supplements: [] Nutritional Intake: [] IV Site: [] Gutierrez Catheter: [] - Assessment/Plan Antibiotics: [] Assessment/Plan: [] Active and Suspected Problems (Last Reviewed 10/29/20 @ 14:19 by Janet Sweeney PA, PA) Sepsis (Acute) COVID-19 (Suspected) Hypoxia (Acute) suspected covid - sx started 01/02, typical covid sx along with elevated d-dimer and lymphopenia. Repeat pcr neg, but suspected covid. On dex/remdesivir. On coumadin. PCT normal, UAg neg, resp pcr panel neg, UA neg, Ucx neg. Ok for discharge home to complete 10 days total of dex. Quarantine for 14 more days. Will follow
--- NOTE | 2021-01-08 10:38 | PCM.PROGNOTE ---
Patient Problems: Active and Suspected Problems (Last Reviewed 10/29/20 @ 14:19 by Janet Sweeney PA, PA) Sepsis (Acute) COVID-19 (Suspected) Hypoxia (Acute) Subjective: Chief complaint: Follow-up after admission for sepsis, high clinical suspicion of COVID-19 infection and acute hypoxic respite insufficiency. Patient seen and examined. No acute events overnight. Today, he is feeling little bit better. Breathing kind of improved compared to yesterday. Still having weakness but also improved. He has been afebrile, blood pressure and heart rate are stable, pulse ox is 95% on 2 L. - Physical Exam Vitals/I&O's: Vital Signs Temp Pulse Resp BP Pulse Ox 97.4 F L 82 16 120/68 95 01/08/21 08:50 01/08/21 08:51 01/08/21 08:50 01/08/21 08:50 01/08/21 08:50 Oxygen Flow Rate (L/min) 2 Oxygen Delivery Method Nasal Cannula Weight: 287 lb 0.67 oz Body Mass Index (BMI) 39.2 Intake and Output for Last 24 Hours 01/06/21 01/07/21 01/08/21 23:59 23:59 23:59 Intake Total 890 / 1010 872.5 / 872.5 Output Total 800 / 1125 825 / 825 200 / 200 Balance 90 / -115 47.5 / 47.5 -200 / -200 General: Alert, Oriented x3, Cooperative, No apparent distress HEENT: Atraumatic, PERRLA, EOMI, Normocephalic Oral: Moist Mucosa, No Gingival or Mucosal Lesions/ Ulcerations Neck: Supple, No JVD, Negative Carotid Bruits, Trachea Midline, Thyroid Normal Size and Texture Lungs: Clear to auscultation, No rhonchi, No wheeze, No rales, Diminished Cardiovascular: Regular rate, Regular Rhythm, Normal S1, Normal S2, PMI Normal Abdomen: Bowel Sounds Present, Soft, Non Tender, Non-Distended, No Hepato-splenomegaly, Obese Extremities: No clubbing, No cyanosis, Edema - Trace edema. Skin: No rashes, No breakdown Lymphatic: No Cervical, Supraclavicular, or Inguinal Adenopathy Neurological: Cranial nerves II-XII grossly intact, Neuro grossly intact Psych/Mental Status: Normal Affect, Appropriate, Alert and oriented to time, place, person, mood and affect Microbiology Past 72 Hours 01/05/21 05:22 Urine, Clean Catch Urine Culture - Final Culture exhibits no growth. 01/05/21 03:25 Blood Culture (Wb) - No Site/Description Given Blood Culture - Preliminary No growth in 48 hours. 01/05/21 03:20 Blood Culture (Wb) - Anticubital Left Blood Culture - Preliminary No growth in 48 hours. 01/05/21 05:50 Mucosa - Nose Respiratory Panel (PCR) - Final 01/05/21 05:22 Urine, Clean Catch Legionella Antigen - Final 01/05/21 05:22 Urine, Clean Catch Streptococcus pneumoniae Antigen (M - Final Laboratory Results 01/07/21 13:06: COVID-19 (CR[facility]STAL) Not Detected Current Medications Acetaminophen (Acetaminophen 325 Mg Tablet) 650 mg PO Q6H PRN PRN PRN Reason: Pain Score 1-10/Temp > 100.7 F Last Admin: 01/07/21 15:39 Dose: 650 mg Documented by: Atorvastatin Calcium (Atorvastatin Calcium 80 Mg Tablet) 80 mg PO QHS [facility] Last Admin: 01/07/21 22:00 Dose: 80 mg Documented by: Dexamethasone (Dexamethasone 4 Mg Tablet) 6 mg PO DAILY [facility] Stop: 01/15/21 10:01 Last Admin: 01/08/21 08:51 Dose: 6 mg Documented by: Doxazosin Mesylate (Doxazosin 4 Mg Tablet) 8 mg PO QHS [facility] Last Admin: 01/07/21 21:59 Dose: 8 mg Documented by: Fluticasone Propionate (Fluticasone 0.05% 1 [place] Nasal.Sry) 1 spray NASAL BID [facility] Last Admin: 01/08/21 08:51 Dose: 1 spray Documented by: Sodium Chloride () 250 mls @ 15 mls/hr IV .[id number] PRN PRN Reason: Saline Flush Last Infusion: 01/07/21 18:16 Dose: 0 mls/hr Documented by: Remdesivir 100 mg/ Sodium (Chloride) 250 mls @ 125 mls/hr IV DAILY [facility]; Protocol Stop: 01/10/21 11:59 Last Infusion: 01/07/21 17:26 Dose: Infused Documented by: Loratadine (Loratadine 10 Mg Tablet) 10 mg PO DAILY [facility] Last Admin: 01/08/21 08:51 Dose: 10 mg Documented by: Losartan Potassium (Losartan Potassium 100 Mg Tablet) 100 mg PO DAILY [facility] Last Admin: 01/08/21 08:51 Dose: 100 mg Documented by: Metoprolol Tartrate (Metoprolol Tartrate 50 Mg Tablet) 50 mg PO BID [facility] Last Admin: 01/08/21 08:51 Dose: 50 mg Documented by: Ondansetron HCl (Ondansetron 4 Mg/2 Ml Vial) 4 mg IV Q8H PRN PRN PRN Reason: NAUSEA/VOMITING Senna/Docusate Sodium (Senna/Docusate Sodium 1 Tablet) 2 tablet PO BID PRN PRN PRN Reason: Constipation Sodium Chloride (0.9% Saline Lock 10 Ml Syringe) 10 - 40 ml IV UD PRN PRN Reason: SALINE FLUSH Last Admin: 01/07/21 21:46 Dose: 10 ml Documented by: Warfarin Sodium (Warfarin 5 Mg Tablet) 5 mg PO SuSa@1700 [facility] Last Admin: 01/06/21 17:07 Dose: 5 mg Documented by: Warfarin Sodium (Warfarin 7.5 Mg Tablet) 7.5 mg PO MoTuWeThFr@1700 [facility] Last Admin: 01/07/21 16:00 Dose: 7.5 mg Documented by: Medical Necessity - Tobacco Use Smoking Status: Former smoker Tobacco Use: Non-smoker Assessment/Plan All Active Problems (Last Reviewed 10/29/20 @ 14:19 by Janet MERCADO, PA) Sepsis (Acute) Hypoxia (Acute) This is a 75 years old male patient presented to the emergency room because of weakness, malaise, fever and falls, found to have sepsis, found to have high clinical suspicion of COVID-19 infection which is complicated by acute hypoxic respiratory sufficiency. #1 acute sepsis/high clinical suspicion of COVID-19 infection: Patient is on p.o. dexamethasone and IV remdesivir. Another repeat COVID-19 PCR done and it was negative. He does have high clinical suspicion of COVID-19 based on symptoms and laboratory data. Chest x-ray showed no acute findings. CT scan chest without contrast showed no infiltrate or consolidation. Blood culture showed no growth in 48 hours, urine culture showed no growth as well. Pneumococcal and Legionella antigen were negative. Infectious disease on the case. Plan to continue same treatment, repeat CBC and CMP tomorrow morning, PT OT, patient may need placement to long term facility. #2 Acute hypoxic respite insufficiency: Secondary to #1. Patient requiring oxygen at 2 L which has been stable since yesterday. Plan as above. #3 physical debility/functional decline: Plan for PT OT evaluation and treatment, patient may need placement to long term facility. #4 CAD status post CABG: Stable, continue statins, losartan metoprolol. #5 chronic atrial fibrillation: Heart rate stable, continue metoprolol for rate control and Coumadin for anticoagulation. INR is therapeutic. #6 history of prostate cancer: Stable, patient is on leuprolide every 3 months. #7 hypertension: Blood pressure stable, continue losartan and metoprolol. #8 chronic anemia: Hemoglobin and hematocrit are stable. #9 hyperlipidemia: Continue statins. #10 DVT prophylaxis: On Coumadin, INR is 2.1. This note was generated with [employer] dictation software. It may contain incorrect words, spelling, and punctuation that were not noted in checking the note before signing. Inpatient E&M: 42275 Subs Hosp L2
[2021-01-08] MEDS: 0.9% Saline Lock 10 ML Syringe IV (10:41)
--- NOTE | 2021-01-08 11:22 | CASEMGMT ---
As per staff pt will need to go to a group home at discharge. Per PT notes, pt is a maximum assist of two. SW attempted to call pt both on his hospital and cell phone, pt is not picking up. RN brought in group home list of facilities that take pt's insurance, take COVID pts, and are in this geographic area. List also includes star ratings. RN informed SW pt seemed surprised he was going to need to go to a group home. SW did try to call into the room again, and to his cell phone, pt is not answering. Next time RN goes in she will make sure the phone is near pt so he can answer. Plan: SNF likely, SW still needs to speak w/pt about the plan and make referral to facilities of pt's choice. TYSHAWN Powers
--- NOTE | 2021-01-08 12:30 | CASEMGMT ---
Addendum entered by Nora Greenwood 01/08/21 15:03: [facility] can take pt and will start precert. SW let pt know, he is agreeable. SW will continue to follow. TYSHAWN Powers Addendum entered by Nora Greenwood 01/08/21 14:26: Demetra from [facility] called with some questions regarding when pt had the COVID vaccine. SW called pt in the room, he had it on the . SW let Demetra know. Demetra to call this SW back to let SW know if they can take pt. TYSHAWN Powers Original Note: SW called pt several more times, he did finally answer. SW spoke w/pt about going to a [facility] for rehab. Pt prefers to go home, however SW reminded pt of how he is moving with therapy(max assist x 2) and that he lives alone, it may be difficult for pt to return home at discharge. Pt states understanding. SW reviewed possible options w/pt, explained we will need to see which facilities can take pt since he is being treated as if he has COVID, even though he is negative. Pt states understanding. Pt agreeable to referral to [facility] or [place]. SW faxed referral to [facility]. SW called [facility], spoke w/Demetra, explained referral sent, explained that pt has tested negative for COVID but is being treated as if he has COVID. They will review the referral and let SW know if they are able to take pt. SW will continue to follow. TYSHAWN Powers
[2021-01-08 13:24] LABS: Absolute Neutrophil Count 4.5 X10^3/uL (2.0-7.7); Basophil# 0.02 X10^3/uL; Basophil% 0.4 % (0-1); Eosinophil# 0.06 X10^3/uL; Eosinophils% 1.1 % (0-5); Hematocrit 39.1 % (40-54); Hemoglobin 12.7 g/dL (13.0-16.5); Lymphocyte % 9.2 % (19-41); Mean Corp Hgb Conc 32.5 g/dL (32-36); Mean Corpuscular Hgb 28.2 pg (27.0-32.0); Mean Corpuscular Volume 86.7 fL (80-94); Mean Platelet Vol. 8.8 fl (6.2-12.0); Monocyte# 0.39 X10^3/uL; Monocyte% 7.1 % (0-10); NRBC Flagged by Analyzer 0 % (0-5); Neutrophil # 4.47 X10^3/uL (2.7-7.7); Neutrophil % 81.8 % (47-70); POSITIVE DIFFERENTIAL YES; Platelet Count 151 K/mm3 (150-450); RBC Distribution Width CV 12.7 % (11.6-14.6); RBC Distribution Width SD 40.4 fl (35.1-43.9); Red Blood Count 4.51 M/mm3 (4.6-6.2); White Blood Count 5.5 K/mm3 (4.4-11.0)
[2021-01-08 13:28] LABS: Differential Indicated SCAN CRITERIA MET
[2021-01-08 13:31] LABS: ALB/GLOB Ratio 0.6 RATIO (0.9-2.4); AST(SGOT) 42 U/L (15-37); Alanine Aminotransfer ALT/SGPT 30 U/L (16-61); Albumin, Serum 2.6 g/dL (3.2-5.0); Alkaline Phosphatase 108 U/L (45-117); Anion Gap 2 (5-15); BUN 18 mg/dL (7-18); BUN/Creat Ratio 26.9 RATIO (10-20); Calcium,Total 8.7 mg/dL (8.5-10.1); Chloride 108 mmol/L (98-107); Creatinine, Serum 0.67 mg/dL (0.70-1.30); EST Glomerular Filtration Rate 123 mL/min (>60); Est Glom Filt Rate - Afr Amer 149 mL/min (>60); Estimated Creatinine Clearance 72.21 ml/min; Globulin 4.1 g/dL (2.2-4.2); Glucose 143 mg/dL (74-106); Potassium 3.9 mmol/L (3.5-5.1); Protein, Total 6.7 g/dL (6.4-8.2); Sodium Level 140 mmol/L (136-145)
[2021-01-08] MEDS: Doxazosin 4 MG Tablet 8 MG PO (22:10)
[2021-01-08] MEDS: Atorvastatin Calcium 80 MG Tablet PO (22:10)
[2021-01-08] MEDS: ENZALUTAMIDE 40 MG CAPSULE 160 MG PO (22:11)
[2021-01-09] VITALS (14 sets, daily range): BP systolic 122–168; BP diastolic 61–91; PULSE 60–94; RESP 19–23; TEMP 36.2–37; O2SAT 87–97
[2021-01-09] MEDS: Acetaminophen 325 MG Tablet 650 MG PO (05:00)
[2021-01-09 05:03] LABS: Absolute Lymphocyte Count 0.98 X10^3/uL (0.83-4.51); Absolute Neutrophil Count 3.2 X10^3/uL (2.0-7.7); Basophil# 0.03 X10^3/uL; Basophil% 0.6 % (0-1); Eosinophil# 0.21 X10^3/uL; Eosinophils% 4.2 % (0-5); Hematocrit 37.9 % (40-54); Hemoglobin 12.2 g/dL (13.0-16.5); Lymphocyte # 0.98 X10^3/ul (4.0); Lymphocyte % 19.8 % (19-41); Mean Corp Hgb Conc 32.2 g/dL (32-36); Mean Corpuscular Hgb 28.6 pg (27.0-32.0); Mean Corpuscular Volume 88.8 fL (80-94); Mean Platelet Vol. 9.2 fl (6.2-12.0); Monocyte# 0.47 X10^3/uL; Monocyte% 9.5 % (0-10); NRBC Flagged by Analyzer 0 % (0-5); Neutrophil # 3.24 X10^3/uL (2.7-7.7); Neutrophil % 65.5 % (47-70); Platelet Count 161 K/mm3 (150-450); RBC Distribution Width CV 12.8 % (11.6-14.6); RBC Distribution Width SD 41.4 fl (35.1-43.9); Red Blood Count 4.27 M/mm3 (4.6-6.2)
[2021-01-09 05:16] LABS: International Normalized Ratio 2.6; Prothrombin Time (Protime)PT. 27.4 SECONDS (11.7-14.9)
[2021-01-09 05:22] LABS: ALB/GLOB Ratio 0.6 RATIO (0.9-2.4); AST(SGOT) 36 U/L (15-37); Alanine Aminotransfer ALT/SGPT 25 U/L (16-61); Albumin, Serum 2.3 g/dL (3.2-5.0); Alkaline Phosphatase 100 U/L (45-117); Anion Gap 4 (5-15); BUN 20 mg/dL (7-18); BUN/Creat Ratio 36.7 RATIO (10-20); Calcium,Total 8.7 mg/dL (8.5-10.1); Chloride 108 mmol/L (98-107); Creatinine, Serum 0.54 mg/dL (0.70-1.30); EST Glomerular Filtration Rate 157 mL/min (>60); Est Glom Filt Rate - Afr Amer 190 mL/min (>60); Estimated Creatinine Clearance 72.21 ml/min; Globulin 3.9 g/dL (2.2-4.2); Glucose 96 mg/dL (74-106); Potassium 3.8 mmol/L (3.5-5.1); Protein, Total 6.2 g/dL (6.4-8.2); Sodium Level 140 mmol/L (136-145)
[2021-01-09] MEDS: Metoprolol Tartrate 50 MG Tablet PO (08:28)
[2021-01-09] MEDS: Fluticasone 0.05% 1 SPRAY NASAL.SRY NASAL (08:29)
[2021-01-09] MEDS: Losartan Potassium 100 MG Tablet PO (08:29)
[2021-01-09] MEDS: dexAMETHasone 4 MG Tablet 6 MG PO (08:29)
[2021-01-09] MEDS: Loratadine 10 MG Tablet PO (08:29)
[2021-01-09] MEDS: 0.9% Saline Lock 10 ML Syringe IV (08:30)
--- NOTE | 2021-01-09 09:22 | PCM.TXEXTCAR ---
- Diet 01/05/21 06:57 Diet: Cardiac - Heart Healthy Food consistency:: Regular Liquid Consistency:: Regular/Thin - Routine Orders/Code Status O2 Liters per Minute: 2 O2 Frequency: Continuous Keep PO Greater than or Equal to (%): 92 Code Status: Full Code - Wound(s) right hand Wound Type: Skin Tear - Suggestions for Active Care Change Position every (hours): 3 Hours to sit in a chair: 2 Times a day to sit in chair: 3 - Therapies Weight Bearing: Weight bearing as tolerated Physical Therapy: Eval and Treat Occupational Therapy: Eval and Treat - Allergies/Procedures Done in Hospital Allergies/Adverse Reactions: Allergies amiodarone Adverse Reaction (Intermediate, Verified 01/05/21 03:07) It did not work, also bad dreams and neuropathy - Type of Care/Length of Stay Estimated LOS: Convalescent Care Less Than 30 days Type of Care Needed: Skilled Rehab Potential: Fair Prognosis: Fair - Additional Orders/Day of Discharge Additional Orders: Continue COVID-19 quarantine requirements for 13 more days. H&P will serve as current which was dated: 01/05/21 Day of Discharge: 01/09/21 - Dietary and Speech Recommendations Dietitian Recommendations/Changes: continue cardiac diet as ordered - Follow Up Care Primary Care Physician: James Pisano Chi, MD [Primary Care Provider] - Please follow up with your Primary Care Physician in: 1-2 weeks.
--- NOTE | 2021-01-09 09:38 | CASEMGMT ---
Addendum entered by Lizette Prabhakar 01/09/21 15:26: Social Work SW placed call to [facility]. Preauth has not been obtained as of yet. ICU phone number given to [facility] and they will contact ICU if precert is obtained later today. Sw spoke with pt and informed he may discharge later today or tomorrow depending on insurance. PT is understanding and agreeable. Nursing updated and understanding. HENS [id number] convalescent form completed and orders faxed to [facility]. Pt denies need for SW to call brother as he states he will let brother know. Plan: [facility], will call nursing unit if precert is obtained today. JOHN Michaels Original Note: Social Work Physician stating pt is ready for discharge today. Phone call to [facility] to check on status of acceptance. Demetra states she started precert yesterday but have not heard back from insurance yet. She expects to received precert today and will notify when it is obtained. SW will await return call. Plan: [facility], pending precert JOHN Michaels
--- NOTE | 2021-01-09 12:12 | PCM.DC.SUM ---
Discharge Date and Diagnosis - Problem List Patient Problems: Active and Suspected Problems (Last Reviewed 10/29/20 @ 14:19 by Janet MERCADO, PA) Sepsis (Acute) COVID-19 (Suspected) Hypoxia (Acute) Date of Admission: 01/05/21 Date of Discharge: 01/09/21 - Primary Discharge Diagnosis Acute Problems: Active Problems (Last Reviewed 10/29/20 @ 14:19 by Janet MERCADO, PA) #1 acute sepsis. #2 high clinical suspicion of COVID-19 infection. #3 acute hypoxic respiratory sufficiency. #4 physical debility/functional decline. 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 Per Dr. Corby Moura @ [facility]. Atherosclerotic heart disease of [place] coronary artery without angina pectoris (Chronic) HEWITT to LAD, SVG to Lateral CX with radial artery examination. Per Dr. Corby Moura @ [facility]. 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 Electronically Signed: Edyta Carroll MD at 4:53 EST Tel , Service support , Chest X-Ray 01/05/21 03:30 IMPRESSION: Normal x-ray examination of the chest. Electronically Signed: Edyta Carroll MD at 4:58 EST Tel , Service support , Chest CT 01/05/21 22:26 IMPRESSION: 1. No acute findings. 2. Mild, stable interstitial fibrosis. 3. Nonobstructing right renal stone. Electronically Signed: Sofi Dunlap MD at 23:54 EST Tel , Service support , Dr. Logan, infectious disease. Operations: None Procedures: None Summary of Care Provided: Patient seen and examined on the day of discharge and appeared to be stable to be discharged to residential facility. He remained on oxygen at 2 L and he did qualify for oxygen to go with. Other vital signs are stable. This is a 75 years old male patient presented to the emergency room because of weakness, malaise, fever and falls, found to have sepsis, found to have high clinical suspicion of COVID-19 infection which is complicated by acute hypoxic respiratory sufficiency. #1 acute sepsis/high clinical suspicion of COVID-19 infection: Although imaging studies, COVID-19 PCR and COVID-19 antigen were negative, there was a high suspicion that patient does have COVID-19 infection based on symptoms and laboratory data. Chest x-ray showed no acute infiltrate. CT chest showed no acute findings. Infectious disease consulted and stated that this patient does have high clinical suspicion of COVID-19 and patient was started on IV remdesivir and p.o. Decadron. Patient symptoms improved. Patient discharged to SNF in a stable medical condition, discharged on Decadron 6 mg p.o. daily to complete total of 10 days of treatment, discharged on oxygen at 2 L. #2 Acute hypoxic respite insufficiency: Secondary to #1. Patient required oxygen of up to 2 L throughout the hospital stay. Amputee pulse ox performed for discharge and patient did qualify for oxygen upon discharge. He was discharged on 2 L. #3 physical debility/functional decline: Patient was discharged to SNF, lives alone at home and he was appropriate for further physical antidepression therapy. #4 CAD status post CABG: Stable, continued on statins, losartan and metoprolol. #5 chronic atrial fibrillation: Heart rate stable, continued on metoprolol for rate control and Coumadin for anticoagulation. INR is therapeutic. #6 history of prostate cancer: Stable, patient is on leuprolide every 3 months. #7 hypertension: Blood pressure stable, continued on losartan and metoprolol. Patient discharged to SNF in a stable condition, discharged on oxygen at 2 L, Decadron 6 mg p.o. daily to complete total of 10 days of treatment, instructed to continue COVID-19 quarantine requirement for 13 more days, recommend follow-up with PCP in 1 to 2 weeks. This note was generated with [employer] dictation software. It may contain incorrect words, spelling, and punctuation that were not noted in checking the note before signing. Patient Problems: Active and Suspected Problems (Last Reviewed 10/29/20 @ 14:19 by Janet MERACDO, PA) Sepsis (Acute) COVID-19 (Suspected) Hypoxia (Acute) - Physical Exam Vitals/I&O's: Vital Signs Temp Pulse Resp BP Pulse Ox 97.1 F L 68 20 H 122/65 H 87 01/09/21 08:30 01/09/21 12:00 01/09/21 08:30 01/09/21 08:30 01/09/21 08:32 Oxygen Flow Rate (L/min) 2 Oxygen Delivery Method Nasal Cannula Weight: 289 lb Body Mass Index (BMI) 39.2 Intake and Output for Last 24 Hours 01/07/21 01/08/21 01/09/21 23:59 23:59 23:59 Intake Total 872.5 / 872.5 1119.5 / 1119.5 240 / 240 Output Total 825 / 825 675 / 675 450 / 450 Balance 47.5 / 47.5 444.5 / 444.5 -210 / -210 General: Alert, Oriented x3, Cooperative, No apparent distress HEENT: Atraumatic, PERRLA, EOMI, Normocephalic Oral: Moist Mucosa, No Gingival or Mucosal Lesions/ Ulcerations Neck: Supple, No JVD, Negative Carotid Bruits, Trachea Midline, Thyroid Normal Size and Texture Lungs: Clear to auscultation, No rhonchi, No wheeze, No rales, Diminished Cardiovascular: Regular rate, Regular Rhythm, Normal S1, Normal S2, PMI Normal Abdomen: Bowel Sounds Present, Soft, Non Tender, Non-Distended, No Hepato-splenomegaly, Obese Extremities: No clubbing, No cyanosis, Edema Skin: No rashes, No breakdown Lymphatic: No Cervical, Supraclavicular, or Inguinal Adenopathy Neurological: Cranial nerves II-XII grossly intact, Motor Exam 5/5 strength throughout Psych/Mental Status: Normal Affect, Appropriate Microbiology Past 72 Hours 01/05/21 05:22 Urine, Clean Catch Urine Culture - Final Culture exhibits no growth. 01/05/21 03:25 Blood Culture (Wb) - No Site/Description Given Blood Culture - Preliminary No growth in 48 hours. 01/05/21 03:20 Blood Culture (Wb) - Anticubital Left Blood Culture - Preliminary No growth in 48 hours. Laboratory Results 01/08/21 13:10: WBC 5.5, RBC 4.51 L, Hgb 12.7 L, Hct 39.1 L, MCV 86.7, MCH 28.2, MCHC 32.5, RDW Std Deviation 40.4, RDW Coeff of Dick 12.7, Plt Count 151, MPV 8.8, Immature Gran % (Auto) 0.400, Neut % (Auto) 81.8 H, Lymph % (Auto) 9.2 L, Wallace % (Auto) 7.1, Eos % (Auto) 1.1, Baso % (Auto) 0.4, Absolute Neuts (auto) 4.5, Absolute Lymphs (auto) 0.50 L, Nucleated RBC % 0 01/08/21 13:10: Sodium 140, Potassium 3.9, Chloride 108 H, Carbon Dioxide 30.0, Anion Gap 2 L, BUN 18, Creatinine 0.67 L, Estim Creat Clear Calc 72.21, Est GFR (MDRD) Af Amer 149, Est GFR (MDRD) Non-Af 123, BUN/Creatinine Ratio 26.9 H, Glucose 143 H, Calcium 8.7, Total Bilirubin 0.90, AST 42 H, ALT 30, Alkaline Phosphatase 108, Total Protein 6.7, Albumin 2.6 L, Globulin 4.1, Albumin/Globulin Ratio 0.6 L 01/09/21 05:00: WBC 5.0, RBC 4.27 L, Hgb 12.2 L, Hct 37.9 L, MCV 88.8, MCH 28.6, MCHC 32.2, RDW Std Deviation 41.4, RDW Coeff of Dick 12.8, Plt Count 161, MPV 9.2, Immature Gran % (Auto) 0.400, Neut % (Auto) 65.5, Lymph % (Auto) 19.8, Wallace % (Auto) 9.5, Eos % (Auto) 4.2, Baso % (Auto) 0.6, Absolute Neuts (auto) 3.2, Absolute Lymphs (auto) 0.98, Nucleated RBC % 0 01/09/21 05:00: Sodium 140, Potassium 3.8, Chloride 108 H, Carbon Dioxide 28.0, Anion Gap 4 L, BUN 20 H, Creatinine 0.54 L, Estim Creat Clear Calc 72.21, Est GFR (MDRD) Af Amer 190, Est GFR (MDRD) Non-Af 157, BUN/Creatinine Ratio 36.7 H, Glucose 96, Calcium 8.7, Total Bilirubin 0.70, AST 36, ALT 25, Alkaline Phosphatase 100, Total Protein 6.2 L, Albumin 2.3 L, Globulin 3.9, Albumin/Globulin Ratio 0.6 L 01/09/21 05:00: PT 27.4 H, INR 2.6 Current Medications Acetaminophen (Acetaminophen 325 Mg Tablet) 650 mg PO Q6H PRN PRN PRN Reason: Pain Score 1-10/Temp > 100.7 F Last Admin: 01/09/21 05:00 Dose: 650 mg Documented by: Atorvastatin Calcium (Atorvastatin Calcium 80 Mg Tablet) 80 mg PO QHS [facility] Last Admin: 01/08/21 22:10 Dose: 80 mg Documented by: Dexamethasone (Dexamethasone 4 Mg Tablet) 6 mg PO DAILY [facility] Stop: 01/15/21 10:01 Last Admin: 01/09/21 08:29 Dose: 6 mg Documented by: Doxazosin Mesylate (Doxazosin 4 Mg Tablet) 8 mg PO QHS [facility] Last Admin: 01/08/21 22:10 Dose: 8 mg Documented by: Fluticasone Propionate (Fluticasone 0.05% 1 [place] Nasal.Sry) 1 spray NASAL BID [facility] Last Admin: 01/09/21 08:29 Dose: 1 spray Documented by: Sodium Chloride () 250 mls @ 15 mls/hr IV .[id number] PRN PRN Reason: Saline Flush Last Infusion: 01/08/21 13:19 Dose: 0 mls/hr Documented by: Remdesivir 100 mg/ Sodium (Chloride) 250 mls @ 125 mls/hr IV DAILY [facility]; Protocol Stop: 01/10/21 11:59 Last Admin: 01/09/21 10:15 Dose: 125 mls/hr Documented by: Loratadine (Loratadine 10 Mg Tablet) 10 mg PO DAILY [facility] Last Admin: 01/09/21 08:29 Dose: 10 mg Documented by: Losartan Potassium (Losartan Potassium 100 Mg Tablet) 100 mg PO DAILY [facility] Last Admin: 01/09/21 08:29 Dose: 100 mg Documented by: Metoprolol Tartrate (Metoprolol Tartrate 50 Mg Tablet) 50 mg PO BID [facility] Last Admin: 01/09/21 08:28 Dose: 50 mg Documented by: Ondansetron HCl (Ondansetron 4 Mg/2 Ml Vial) 4 mg IV Q8H PRN PRN PRN Reason: NAUSEA/VOMITING Senna/Docusate Sodium (Senna/Docusate Sodium 1 Tablet) 2 tablet PO BID PRN PRN PRN Reason: Constipation Sodium Chloride (0.9% Saline Lock 10 Ml Syringe) 10 - 40 ml IV UD PRN PRN Reason: SALINE FLUSH Last Admin: 01/09/21 08:30 Dose: 10 ml Documented by: Warfarin Sodium (Warfarin 5 Mg Tablet) 5 mg PO SuSa@1700 [facility] Last Admin: 01/06/21 17:07 Dose: 5 mg Documented by: Warfarin Sodium (Warfarin 7.5 Mg Tablet) 7.5 mg PO MoTuWeThFr@1700 [facility] Last Admin: 01/08/21 17:20 Dose: 7.5 mg Documented by: Home Medications: Medications to take at Discharge Atorvastatin Calcium [Lipitor] 80 mg PO QHS 04/02/16 potassium chloride 20 mEq tablet,extended release 20 meq PO DAILY 12/03/18 Cetirizine HCl [Zyrtec] 10 mg PO DAILY 12/27/18 acetaminophen 325 mg tablet 650 mg PO Q4H PRN tab 03/09/19 cromolyn 5.2 mg/spray (4 %) nasal spray 2 spray INTRANASAL DAILY ml 03/09/19 triamcinolone acetonide 55 mcg nasal spray aerosol 2 spray INTRANASAL DAILY 03/09/19 metoprolol tartrate 50 mg tablet 50 mg PO BID 03/15/19 terazosin 10 mg capsule 10 mg PO QHS 03/15/19 leuprolide (3 month) 22.5 mg (3 month) intramuscular syringe kit 11.25 mg IM [id number] 04/23/20 losartan 100 mg tablet 100 mg PO DAILY 04/23/20 warfarin 5 mg tablet 5 mg PO .COMPLEX #120 tab 06/04/20 cholecalciferol (vitamin D3) 1,250 mcg (50,000 unit) capsule 1,000 unit PO ONCE cap 10/29/20 Enzalutamide [Xtandi] 160 mg PO DAILY 01/05/21 Dexamethasone 6 mg PO DAILY #7 tab 01/09/21 Following Prescriptions Were Given to Patient: Dexamethasone 6 mg PO DAILY #7 tab Prescription Printed Primary Care Physician: James Pisano Chi, MD [Primary Care Provider] - Please follow up with your Primary Care Physician in: 1-2 weeks. Disposition: [facility] facility Minutes spent on discharge:: 33 Patient Condition:: Stable Medical Necessity - Tobacco Use Smoking Status: Former smoker Tobacco Use: Non-smoker Meaningful Use Info Meaningful Use Diagnoses (Choose all that apply): None applicable Inpatient E&M: 30733 Disch Hosp
--- NOTE | 2021-01-09 15:46 | PN_ITS ---
Patient Problems: Active and Suspected Problems (Last Reviewed 10/29/20 @ 14:19 by Janet Sweeney PA, PA) Sepsis (Acute) COVID-19 (Suspected) Hypoxia (Acute) - Physical Exam Vitals/I&O's: Vital Signs Temp Pulse Resp BP Pulse Ox 98.6 F 67 23 H 144/88 H 96 01/09/21 14:30 01/09/21 15:17 01/09/21 14:30 01/09/21 14:30 01/09/21 14:30 Oxygen Flow Rate (L/min) 2 Oxygen Delivery Method Nasal Cannula Weight: 289 lb Body Mass Index (BMI) 39.2 Intake and Output for Last 24 Hours 01/07/21 01/08/21 01/09/21 23:59 23:59 23:59 Intake Total 872.5 / 872.5 1119.5 / 1119.5 730 / 730 Output Total 825 / 825 675 / 675 450 / 450 Balance 47.5 / 47.5 444.5 / 444.5 280 / 280 General: Alert, Oriented x3, Cooperative, No apparent distress HEENT: Atraumatic, PERRLA, EOMI, Normocephalic Oral: Moist Mucosa, No Gingival or Mucosal Lesions/ Ulcerations Neck: Supple, No JVD, Negative Carotid Bruits, Trachea Midline, Thyroid Normal Size and Texture Lungs: Clear to auscultation, No rhonchi, No wheeze, No rales, Diminished Cardiovascular: Regular rate, Regular Rhythm, Normal S1, Normal S2, No murmurs, PMI Normal Abdomen: Bowel Sounds Present, Soft, Non Tender, Non-Distended, No Hepato- splenomegaly Microbiology Past 72 Hours 01/05/21 05:22 Urine, Clean Catch Urine Culture - Final Culture exhibits no growth. 01/05/21 03:25 Blood Culture (Wb) - No Site/Description Given Blood Culture - Preliminary No growth in 48 hours. 01/05/21 03:20 Blood Culture (Wb) - Anticubital Left Blood Culture - Preliminary No growth in 48 hours. Laboratory Results 01/09/21 05:00: WBC 5.0, RBC 4.27 L, Hgb 12.2 L, Hct 37.9 L, MCV 88.8, MCH 28.6, MCHC 32.2, RDW Std Deviation 41.4, RDW Coeff of Dick 12.8, Plt Count 161, MPV 9.2, Immature Gran % (Auto) 0.400, Neut % (Auto) 65.5, Lymph % (Auto) 19.8, Leon % (Auto) 9.5, Eos % (Auto) 4.2, Baso % (Auto) 0.6, Absolute Neuts (auto) 3.2, Absolute Lymphs (auto) 0.98, Nucleated RBC % 0 01/09/21 05:00: Sodium 140, Potassium 3.8, Chloride 108 H, Carbon Dioxide 28.0, Anion Gap 4 L, BUN 20 H, Creatinine 0.54 L, Estim Creat Clear Calc 72.21, Est GFR (MDRD) Af Amer 190, Est GFR (MDRD) Non-Af 157, BUN/Creatinine Ratio 36.7 H, Glucose 96, Calcium 8.7, Total Bilirubin 0.70, AST 36, ALT 25, Alkaline Phosphatase 100, Total Protein 6.2 L, Albumin 2.3 L, Globulin 3.9, Albumin/Globulin Ratio 0.6 L 01/09/21 05:00: PT 27.4 H, INR 2.6 Current Medications Acetaminophen (Acetaminophen 325 Mg Tablet) 650 mg PO Q6H PRN PRN PRN Reason: Pain Score 1-10/Temp > 100.7 F Last Admin: 01/09/21 05:00 Dose: 650 mg Documented by: Atorvastatin Calcium (Atorvastatin Calcium 80 Mg Tablet) 80 mg PO QHS [facility] Last Admin: 01/08/21 22:10 Dose: 80 mg Documented by: Dexamethasone (Dexamethasone 4 Mg Tablet) 6 mg PO DAILY [facility] Stop: 01/15/21 10:01 Last Admin: 01/09/21 08:29 Dose: 6 mg Documented by: Doxazosin Mesylate (Doxazosin 4 Mg Tablet) 8 mg PO QHS [facility] Last Admin: 01/08/21 22:10 Dose: 8 mg Documented by: Fluticasone Propionate (Fluticasone 0.05% 1 [place] Nasal.Sry) 1 spray NASAL BID [facility] Last Admin: 01/09/21 08:29 Dose: 1 spray Documented by: Sodium Chloride () 250 mls @ 15 mls/hr IV .[id number] PRN PRN Reason: Saline Flush Last Infusion: 01/09/21 12:00 Dose: 15 mls/hr Documented by: Remdesivir 100 mg/ Sodium (Chloride) 250 mls @ 125 mls/hr IV DAILY [facility]; Protocol Stop: 01/10/21 11:59 Last Infusion: 01/09/21 12:15 Dose: Infused Documented by: Loratadine (Loratadine 10 Mg Tablet) 10 mg PO DAILY [facility] Last Admin: 01/09/21 08:29 Dose: 10 mg Documented by: Losartan Potassium (Losartan Potassium 100 Mg Tablet) 100 mg PO DAILY [facility] Last Admin: 01/09/21 08:29 Dose: 100 mg Documented by: Metoprolol Tartrate (Metoprolol Tartrate 50 Mg Tablet) 50 mg PO BID [facility] Last Admin: 01/09/21 08:28 Dose: 50 mg Documented by: Ondansetron HCl (Ondansetron 4 Mg/2 Ml Vial) 4 mg IV Q8H PRN PRN PRN Reason: NAUSEA/VOMITING Senna/Docusate Sodium (Senna/Docusate Sodium 1 Tablet) 2 tablet PO BID PRN PRN PRN Reason: Constipation Sodium Chloride (0.9% Saline Lock 10 Ml Syringe) 10 - 40 ml IV UD PRN PRN Reason: SALINE FLUSH Last Admin: 01/09/21 08:30 Dose: 10 ml Documented by: Warfarin Sodium (Warfarin 5 Mg Tablet) 5 mg PO SuSa@1700 [facility] Last Admin: 01/06/21 17:07 Dose: 5 mg Documented by: Warfarin Sodium (Warfarin 7.5 Mg Tablet) 7.5 mg PO MoTuWeThFr@1700 [facility] Last Admin: 01/08/21 17:20 Dose: 7.5 mg Documented by: Medical Necessity - Tobacco Use Smoking Status: Former smoker Tobacco Use: Non-smoker Assessment/Plan All Active Problems (Last Reviewed 10/29/20 @ 14:19 by Janet Sweeney PA, PA) Sepsis (Acute) Hypoxia (Acute)
--- NOTE | 2021-01-09 18:12 | NURSING ---
Report called to Deepthi at [facility], ambulance to pick pt up at [address]
--- NOTE | 2021-01-09 19:24 | NURSING ---
patient discharged to [facility] via [facility] at this time. Discharged with all belongings including home medication and CPAP.
== END 2021-01-09 19:23 | disposition skilled nursing facility (03) | DRG 872 ==
LOC: ED 03:32 → ICU 05:54 → PCU 13:16 → ICU 01-07 14:23
PROVIDERS: Internal Medicine Infectious Disease; Admitting Provider Family Medicine; Emergency Provider Emergency Medicine; PCP Family Medicine Geriatric Medicine; Visit Provider Hospitalist
DX: A41.9 Sepsis, unspecified organism (principal); I48.19 Other persistent atrial fibrillation; Z68.41 Body mass index [BMI] 40.0-44.9, adult; N30.00 Acute cystitis without hematuria; R09.02 Hypoxemia; E66.01 Morbid (severe) obesity due to excess calories; E78.5 Hyperlipidemia, unspecified; I10 Essential (primary) hypertension; C61 Malignant neoplasm of prostate; E87.6 Hypokalemia; I25.10 Atherosclerotic heart disease of native coronary artery without angina pectoris; Z95.1 Presence of aortocoronary bypass graft; Z79.01 Long term (current) use of anticoagulants; Z87.891 Personal history of nicotine dependence; Z79.899 Other long term (current) drug therapy
CPT/HCPCS: 36415; 71045; 71250; 73502; 80053; 81001; 82728; 83605; 83615; 83735; 83880; 84145; 84484; 85025; 85379; 85610; 85730; 86140; 87040; 87086; 87426; 87449; 87633; 87635; 93005; 97110; 97162; 97165; 97530; 97535; 99285; 99406; J7030; J7050; A4216; U0002

== ENCOUNTER → 2021-03-21 16:33 | Outpatient (CLI) | payer MEDICARE, SELFPAY ==
[2021-01-05 06:38] VITALS: BMI 39.2
[2021-03-21 17:33] LABS: Absolute Lymphocyte Count 1.27 X10^3/uL (0.83-4.51); Absolute Neutrophil Count 2.8 X10^3/uL (2.0-7.7); Basophil# 0.02 X10^3/uL; Basophil% 0.4 % (0-1); Eosinophil# 0.22 X10^3/uL; Eosinophils% 4.7 % (0-5); Hematocrit 36.9 % (40-54); Lymphocyte # 1.27 X10^3/ul (0.83-4.51); Lymphocyte % 26.8 % (19-41); Mean Corp Hgb Conc 32.5 g/dL (32-36); Mean Corpuscular Hgb 29.1 pg (27.0-32.0); Mean Corpuscular Volume 89.6 fL (80-94); Mean Platelet Vol. 9.4 fl (6.2-12.0); Monocyte# 0.42 X10^3/uL; Monocyte% 8.9 % (0-10); NRBC Flagged by Analyzer 0 % (0-5); Neutrophil # 2.79 X10^3/uL (2.7-7.7); Platelet Count 151 K/mm3 (150-450); RBC Distribution Width CV 13.9 % (11.6-14.6); RBC Distribution Width SD 45.1 fl (35.1-43.9); Red Blood Count 4.12 M/mm3 (4.6-6.2); White Blood Count 4.7 K/mm3 (4.4-11.0)
[2021-03-21 17:52] LABS: ALB/GLOB Ratio 0.8 RATIO (0.9-2.4); AST(SGOT) 20 U/L (15-37); Alanine Aminotransfer ALT/SGPT 21 U/L (16-61); Albumin, Serum 3.2 g/dL (3.2-5.0); Alkaline Phosphatase 178 U/L (45-117); Anion Gap 8 (5-15); BUN 14 mg/dL (7-18); BUN/Creat Ratio 20.7 RATIO (10-20); Calcium,Total 9.1 mg/dL (8.5-10.1); Chloride 106 mmol/L (98-107); Creatinine, Serum 0.68 mg/dL (0.70-1.30); EST Glomerular Filtration Rate 122 mL/min (>60); Est Glom Filt Rate - Afr Amer 148 mL/min (>60); Globulin 3.9 g/dL (2.2-4.2); Glucose 88 mg/dL (74-106); Potassium 4.2 mmol/L (3.5-5.1); Protein, Total 7.1 g/dL (6.4-8.2); Sodium Level 142 mmol/L (136-145); Thyroid Stim Hormone (TSH) 3.18 uIU/mL (0.358-3.74)
== END ==
PROVIDERS: PCP Family Medicine Geriatric Medicine; Visit Provider Family Medicine Geriatric Medicine
DX: I10 Essential (primary) hypertension (principal); F52.8 Other sexual dysfunction not due to a substance or known physiological condition; E55.9 Vitamin D deficiency, unspecified
CPT/HCPCS: 36415; 80053; 82306; 84403; 84443; 85025

== ENCOUNTER 2021-05-02 14:36 | Outpatient (RCR) | payer MEDICARE, SELFPAY ==
[2021-01-05 06:38] VITALS: BMI 39.2
[2021-05-02 17:36] LABS: Prothrombin Time (Protime)PT. 22.3 SECONDS (11.7-14.9)
== END 2021-05-02 18:00 | disposition home or self-care (01) ==
LOC: LAB 14:36
PROVIDERS: PCP Family Medicine Geriatric Medicine; Referring Provider Internal Medicine Cardiovascular Disease; Visit Provider Internal Medicine Cardiovascular Disease
DX: I48.19 Other persistent atrial fibrillation (principal); Z79.01 Long term (current) use of anticoagulants
CPT/HCPCS: 36415; 85610

== ENCOUNTER 2021-05-29 14:45 | Outpatient (RCR) | payer MEDICARE, SELFPAY ==
[2021-01-05 06:38] VITALS: BMI 39.2
[2021-05-29 15:42] LABS: International Normalized Ratio 2.2; Prothrombin Time (Protime)PT. 24.1 SECONDS (11.7-14.9)
== END 2021-05-29 18:00 | disposition home or self-care (01) ==
LOC: LAB 14:45
PROVIDERS: PCP Family Medicine Geriatric Medicine; Referring Provider Internal Medicine Cardiovascular Disease; Visit Provider Internal Medicine Cardiovascular Disease
DX: I48.19 Other persistent atrial fibrillation (principal); Z79.01 Long term (current) use of anticoagulants
CPT/HCPCS: 36415; 85610

== ENCOUNTER → 2021-06-19 13:20 | Outpatient (CLI) | payer MEDICARE, SELFPAY ==
[2021-01-05 06:38] VITALS: BMI 39.2
[2021-06-19 16:52] LABS: Basophil# 0.02 X10^3/uL; Basophil% 0.4 % (0-1); Eosinophil# 0.19 X10^3/uL; Eosinophils% 3.4 % (0-5); Hematocrit 34.6 % (40-54); Hemoglobin 11.6 g/dL (13.0-16.5); Lymphocyte % 16.1 % (19-41); Mean Corp Hgb Conc 33.5 g/dL (32-36); Mean Corpuscular Hgb 29.4 pg (27.0-32.0); Mean Corpuscular Volume 87.6 fL (80-94); Mean Platelet Vol. 9.1 fl (6.2-12.0); Monocyte# 0.44 X10^3/uL; Monocyte% 7.9 % (0-10); NRBC Flagged by Analyzer 0 % (0-5); Neutrophil # 4.04 X10^3/uL (2.7-7.7); Platelet Count 136 K/mm3 (150-450); RBC Distribution Width CV 12.7 % (11.6-14.6); RBC Distribution Width SD 40.5 fl (35.1-43.9); Red Blood Count 3.95 M/mm3 (4.6-6.2); White Blood Count 5.6 K/mm3 (4.4-11.0)
[2021-06-19 17:08] LABS: ALB/GLOB Ratio 0.9 RATIO (0.9-2.4); AST(SGOT) 17 U/L (15-37); Alanine Aminotransfer ALT/SGPT 21 U/L (16-61); Albumin, Serum 3.3 g/dL (3.2-5.0); Alkaline Phosphatase 138 U/L (45-117); Anion Gap 2 (5-15); BUN 14 mg/dL (7-18); BUN/Creat Ratio 23.2 RATIO (10-20); Calcium,Total 8.7 mg/dL (8.5-10.1); Chloride 108 mmol/L (98-107); EST Glomerular Filtration Rate 139 mL/min (>60); Est Glom Filt Rate - Afr Amer 169 mL/min (>60); Globulin 3.5 g/dL (2.2-4.2); Glucose 92 mg/dL (74-106); Potassium 4.1 mmol/L (3.5-5.1); Protein, Total 6.8 g/dL (6.4-8.2); Sodium Level 141 mmol/L (136-145); Thyroid Stim Hormone (TSH) 2.25 uIU/mL (0.358-3.74)
[2021-06-19 17:29] LABS: Vitamin D,25 Hydroxy 58.6 ng/mL
== END ==
PROVIDERS: PCP Family Medicine Geriatric Medicine; Visit Provider Family Medicine Geriatric Medicine
DX: I10 Essential (primary) hypertension (principal); E55.9 Vitamin D deficiency, unspecified; F52.8 Other sexual dysfunction not due to a substance or known physiological condition
CPT/HCPCS: 36415; 80053; 82306; 84403; 84443; 85025

== ENCOUNTER → 2021-07-04 18:17 | Outpatient (CLI) | payer MEDICARE, SELFPAY ==
[2021-07-04 19:57] LABS: M R Staph aureus DNA By PCR Negative (Negative); Probe Check PASS; Staph aureus DNA By PCR NEGATIVE (Negative)
== END ==
PROVIDERS: PCP Family Medicine Geriatric Medicine; Visit Provider Family Medicine Geriatric Medicine
DX: Z00.00 Encounter for general adult medical examination without abnormal findings (principal)
CPT/HCPCS: 87070; 87077; 87186; 87205; 87640

== ENCOUNTER 2021-07-10 09:32 | Outpatient (RCR) | payer MEDICARE, SELFPAY ==
[2021-01-05 06:38] VITALS: BMI 39.2
== END 2021-07-10 18:00 | disposition home or self-care (01) ==
LOC: LAB 09:32
PROVIDERS: PCP Family Medicine Geriatric Medicine; Referring Provider Internal Medicine Cardiovascular Disease; Visit Provider Internal Medicine Cardiovascular Disease
DX: I48.19 Other persistent atrial fibrillation (principal); Z79.01 Long term (current) use of anticoagulants
CPT/HCPCS: 36415; 85610

== ENCOUNTER 2021-07-31 08:00 | Outpatient (RCR) | payer MEDICARE, SELFPAY ==
[2021-07-10 08:12] VITALS: BP 154/77; PULSE 74; TEMP 36.1
--- NOTE | 2021-07-10 09:04 | PCM.WC.HP ---
History of Present Illness Date of Service: 07/10/21 Chief Complaint: Follow-up left lower leg edema and open wounds History of Wound: 75-year-old white male with history of coronary artery disease and A. fib is on Coumadin at this time. States about 2 or 3 weeks ago blisters developed on his left lower leg and then of course popped and develops open sores with bleeding and infection and cellulitis developed. He does see Dr. Samuels who cultured and started him on Levaquin and Bactrim DS. Patient has never had a study done of his lower extremities he does have discoloration from peripheral vascular disease and possibly PAD, because of his history. Patient also has issues with his back therefore is not walking real well or can he care for himself well. [facility] Medical History (Updated 07/10/21 @ 09:14 by Sally Michael NP, WHOLESALE REPRESENTATIVE-C) Atherosclerotic heart disease of [place] coronary artery without angina pectoris Fracture of ninth thoracic vertebra (12/27/18) History of Clostridium difficile infection (01/09/19) History of subdural hematoma (post traumatic) (12/27/18) Hyperlipidemia Hypertension intermediate (current) use of anticoagulants Persistent atrial fibrillation Traumatic hemothorax (12/30/18) Home Medications atorvastatin 80 mg PO QHS 04/02/16 [History Last Taken Unknown] potassium chloride 20 mEq tablet,extended release 20 meq PO DAILY 12/03/18 [History Last Taken Unknown] cetirizine 10 mg PO DAILY 12/27/18 [History Last Taken Unknown] acetaminophen 325 mg tablet 650 mg PO Q4H PRN tab 03/09/19 [History Last Taken Unknown] cromolyn 5.2 mg/spray (4 %) nasal spray 2 spray INTRANASAL DAILY ml 03/09/19 [History Last Taken Unknown] triamcinolone acetonide 55 mcg nasal spray aerosol 2 spray INTRANASAL DAILY 03/09/19 [History Last Taken Unknown] metoprolol tartrate 50 mg tablet 50 mg PO BID 03/15/19 [History Last Taken Unknown] terazosin 10 mg capsule 10 mg PO QHS 03/15/19 [History Last Taken Unknown] leuprolide (3 month) 22.5 mg (3 month) intramuscular syringe kit 11.25 mg IM [id number] 04/23/20 [History Last Taken Unknown] losartan 100 mg tablet 100 mg PO DAILY 04/23/20 [History Last Taken Unknown] cholecalciferol (vitamin D3) 1,250 mcg (50,000 unit) capsule 1,000 unit PO ONCE cap 10/29/20 [History Last Taken Unknown] enzalutamide 160 mg PO DAILY 01/05/21 [History Last Taken Unknown] dexamethasone 6 mg PO DAILY #7 tab 01/09/21 [Rx Last Taken Unknown] warfarin 5 mg tablet 5 mg PO .COMPLEX #120 tab 06/19/21 [Rx Last Taken Unknown] levofloxacin 500 mg PO DAILY 07/10/21 [History Last Taken Unknown] sulfamethoxazole-trimethoprim 1 tab PO BID 07/10/21 [History Last Taken Unknown] Allergy/AdvReac Type Severity Reaction Status Date / Time amiodarone AdvReac Intermediate It did not Verified 01/05/21 03:07 work, also bad dreams and neuropathy Family History Father , Age 57 Myocardial infarction CAD (coronary artery disease) ETOH abuse Mother , Age 47, of bone cancer Bone cancer Brother , age 45, of AIDS AIDS (acquired immune deficiency syndrome) Surgical History History of left heart catheterization (11/26/98) History of thoracic spinal fusion (12/30/18) 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) Social History Smoking Status: Former smoker ROS Constitutional Constitutional: Reports systems reviewed and no addt'l complaints, except as documented Eyes Eyes: Reports systems reviewed and no addt'l complaints, except as documented ENT HEENT: Reports systems reviewed and no addt'l complaints, except as documented Cardiovascular Cardiovascular: Reports systems reviewed and no addt'l complaints, except as documented Respiratory/Chest Respiratory/Chest: Reports systems reviewed and no addt'l complaints, except as documented Gastrointestinal Gastrointestinal: Reports systems reviewed and no addt'l complaints, except as documented Genitourinary Genitourinary: Reports systems reviewed and no addt'l complaints, except as documented Musculoskeletal Musculoskeletal: Reports systems reviewed and no addt'l complaints, except as documented Integumentary Integumentary: Reports dry skin, erythema, non-healing lesions and wounds Neurologic Neurologic: Reports systems reviewed and no addt'l complaints, except as documented Psychiatric Psychiatric: Reports systems reviewed and no addt'l complaints, except as documented Endocrine Endocrinology: Reports systems reviewed and no addt'l complaints, except as documented Hematologic/Lymphatic Hematologic/Lymphatic: Reports systems reviewed and no addt'l complaints, except as documented Allergic/Immunologic Allergic/Immunologic: Reports systems reviewed and no addt'l complaints, except as documented Vital Signs Vital Signs Vital Signs: 07/10/21 08:12 Temperature 96.9 F L Temperature Source Temporal Pulse Rate 74 Blood Pressure 154/77 H Blood Pressure Mean 102 Blood Pressure Source Monitor Blood Pressure Position Sitting Blood Pressure Location Left Arm Physical Exam Const oriented x3 General Appearance: cooperative Exam Limitations: no limitations Resp normal respiratory effort Effort and Inspection: able to speak in complete sentences Auscultation: clear to auscultation bilaterally Cardio regular rate and regular rhythm Palpation: normal PMI Rate: regular rate Rhythm: regular rhythm GI Auscultation: normoactive bowel sounds Palpation: soft and no hepatosplenomegaly external exam normal Extremity full ROM; Negative for normal to inspection, normal capillary refill or no clubbing, cyanosis or edema Extremity Narrative: Left lower leg has three quarters of circumferential of the leg open with superficial skin openings on erythematous dry skin probably due to peripheral vascular disease. General Extremity: normal exam except as noted Skin no rashes or lesions noted General Skin Exam: dry skin, erythema, venous stasis and dermatitis Wounds: wounds noted Neuro oriented x3 Psych Appearance: grossly normal Speech: normal speech Thought Content: normal thought content Judgement: judgement good Debridement Note Debridement Note Post-Debridement Measurements and Additional Note: Post-Debridement Measurements/Treatment - Nurse 1 - General Ulcer Assessment Start: 07/10/21 08:08 Freq: Status: Active Protocol: SHAWN.[email or web address] Activity Type Activity Date Activity User E-Sign Co-Sign Detail Recorded Client Recorded Date Recorded By Document 07/10/21 08:12 LION [id number] 07/10/21 08:17 LION 07/10/21 08:12 - Today's Visit Information Type of service Initial Visit Arrival Mode Ambulatory,Cane Patient Identification Verified (Name & Yes ) Vital Signs Temperature (97.8 F-99.1 F) 96.9 F L Temperature Source Temporal Pulse Rate (60-100) 74 Pulse Location Monitor Blood Pressure (90/60-120/80) 154/77 H Blood Pressure Mean 102 Source Monitor Position Sitting Blood Pressure Location Left Arm History Since Last Visit- (Skip if this is Patient's initial visit) Have you changed medications since your No last visit? Any new allergies or adverse reactions No Had a fall/change in ADL's that may No increase risk of falls Signs or symptoms of abuse and/or No neglect since last visit Have you been in the hospital since your No last visit? Has dressing in place as prescribed No Has compression in place as prescribed N/A Has offloadiing in place as prescribed N/A Experienced any changes in pain level or No management Left Footwear Regular Shoe Right Footwear Regular Shoe Pain Scale: 0-10 Numeric Is Patient Pain Free? Yes WC - Nurse 1 - General Ulcer Measurement Start: 07/10/21 08:08 Freq: Status: Active Protocol: Activity Type Activity Date Activity User E-Sign Co-Sign Detail Recorded Client Recorded Date Recorded By Document 07/10/21 08:12 LION [id number] 07/10/21 08:17 LION 07/10/21 08:12 Wound Center Nurse 1 #2 Left Post leg -Current Size (cm) - Length 7 -Current Size (cm) - Width 6 -Current Size (cm) - Depth 0.1 -Total Square Cm 42 -Exudate Amt Small -Exudate Type Serosanguineous -Wound Margin Distinct, Outline Attached -Granulation Amt Medium (34-66%) -Granulation Quality Red -Necrosis Amt Small (1-33%) -Necrotic Tissue Type Eschar -Texture (Connie-wound Skin Appearance) Assessed, Scarring -Moisture (Connie-wound Skin Appearance) Assessed,Dry/ Scaly -Color (Connie-wound Skin Appearance) No Abnormality, Assessed -Temperature (Connie-wound Skin No Abnormality Appearance) (Pt Warm) -Tenderness on Palpation (Connie-wound No Skin Appearance) -Ulcer Cleansing Rinsed/ Irrigated with Saline -Foul Odor after Cleansing No -Anesthetic Used 5% Lidocaine Gel #1 Left Anterior Leg -Current Size (cm) - Length 3.2 -Current Size (cm) - Width 1.2 -Current Size (cm) - Depth 0.1 -Total Square Cm 3.84 -Exudate Amt Small -Exudate Type Serosanguineous -Wound Margin Distinct, Outline Attached -Granulation Amt Medium (34-66%) -Granulation Quality Red -Necrosis Amt Small (1-33%) -Necrotic Tissue Type Eschar -Texture (Connie-wound Skin Appearance) Assessed, Scarring -Moisture (Connie-wound Skin Appearance) Assessed,Dry/ Scaly -Color (Connie-wound Skin Appearance) Assessed, Hemosiderin Staining -Temperature (Connie-wound Skin No Abnormality Appearance) (Pt Warm) -Tenderness on Palpation (Connie-wound No Skin Appearance) -Ulcer Cleansing Rinsed/ Irrigated with Saline -Foul Odor after Cleansing No -Anesthetic Used 5% Lidocaine Gel Right Calf (cm) 45.5 Right Ankle (cm) 26.5 Left Ankle (cm) 47 Left Foot (cm) 26 WC - Nurse 2 - General Ulcer CM Notes Start: 07/10/21 08:08 Freq: Status: Active Protocol: Activity Type Activity Date Activity User E-Sign Co-Sign Detail Recorded Client Recorded Date Recorded By Document 07/10/21 08:43 MW [id number] 07/10/21 08:56 MW 07/10/21 08:43 Wound Center Nurse 2 #2 Left Post leg -Time 08:44 -Correct Patient Yes -Correct Side, Site, Position Yes -Correct Procedure Yes -Procedure Performed Yes -Type of Procedure Debridement -Clinical Debridement Subcutaneous -Tissue Removed Subcutaneous -Post Debridement (cm) - Length 8.0 -Post Debridement (cm) - Width 7.5 -Post Debridement (cm) - Depth 0.1 -Total Square (Post) (cm) 60.00 -Area of Debridement (cm) - Length 8.0 -Area of Debridement (cm) - Width 7.5 -Total Square (Area) (cm) 60.00 -Tunneling No -Undermining/Tunneling No -Circular Undermining No -Wound/Ulcer Outcome Not Healed -Ulcer Cleansing Rinsed/ Irrigated with Saline -Foul Odor after Cleansing No -Bioengineered Tissue No -Bleeding Controlled with Pressure -Offloading No -Treatment Response Procedure Tolerated Well -Debridement - Subq, 1st 20sq cm Yes -Debridement, SubQ, ea addt'l 20sq cm 3 or part thereof #1 Left Anterior Leg -Time 08:44 -Correct Patient Yes -Correct Side, Site, Position Yes -Correct Procedure Yes -Procedure Performed Yes -Type of Procedure Debridement -Clinical Debridement Subcutaneous -Tissue Removed Subcutaneous -Post Debridement (cm) - Length 4.0 -Post Debridement (cm) - Width 2.7 -Post Debridement (cm) - Depth 0.1 -Total Square (Post) (cm) 10.80 -Area of Debridement (cm) - Length 4.0 -Area of Debridement (cm) - Width 2.7 -Total Square (Area) (cm) 10.80 -Tunneling No -Undermining/Tunneling No -Circular Undermining No -Wound/Ulcer Outcome Not Healed -Ulcer Cleansing Rinsed/ Irrigated with Saline -Foul Odor after Cleansing No -Bioengineered Tissue No -Bleeding Controlled with Pressure -Offloading No -Treatment Response Procedure Tolerated Well -Debridement - Subq, 1st 20sq cm No Pain Scale: 0-10 Numeric Is Patient Pain Free? Yes Wound debrided: Left lower leg anterior wounds Type of Debridement: Excisional debridement Anesthesia Used: 5% Lidocaine Gel Depth: Down to and including healthy tissue Percentage of wound debrided: 100 Instrument Used: 7mm curette Severity: Limited To Skin Breakdown Amount of bleeding with debridement: Mild Bleeding Controlled with: Pressure Patient tolerated procedure: Patient tolerated procedure well Additional Wound Wound debrided: Left posterior lower leg Type of Debridement: Excisional debridement Anesthesia Used: 5% Lidocaine Gel Depth: Down to and including healthy tissue Percentage of wound debrided: 100 Instrument Used: 7mm curette Severity: Limited To Skin Breakdown Amount of bleeding with debridement: Mild Bleeding Controlled with: Pressure Patient tolerated procedure: Patient tolerated procedure well Lab / Micro Data Attestation: I reviewed the patient's lab results. Assessment/Plan Assessment/Plan (1) Edema of both lower legs: CODE(S): R60.0 - Localized edema PLAN: Double layer Tubigrip's bilateral lower legs for the edema (2) Peripheral vascular disease of lower extremity with ulceration: CODE(S): I73.9 - Peripheral vascular disease, unspecified; L97.909 - Non-pressure chronic ulcer of unspecified part of unspecified lower leg with unspecified severity PLAN: We will need to get the arterial brachial studies and ultrasounds done of his legs bilaterally (3) Infected wound: CODE(S): T14.8XXA - Other injury of unspecified body region, initial encounter; L08.9 - Local infection of the skin and subcutaneous tissue, unspecified PLAN: Continue the Levaquin and stop the Bactrim DS Wash the left leg with antibacterial soap and apply the Xeroform dressing cover with gauze Braden double layer Tubigrip Follow-up in 1 week
[2021-07-17 08:12] VITALS: BP 143/94; PULSE 87; RESP 18; TEMP 35.7
--- NOTE | 2021-07-17 08:57 | PN.PCM_ITS ---
History of Present Illness Date of Service: 07/17/21 Chief Complaint: Follow-up left lower leg edema and open wounds History of Wound: 75-year-old white male with history of coronary artery disease and A. fib is on Coumadin at this time. States about 2 or 3 weeks ago blisters developed on his left lower leg and then of course popped and develops open sores with bleeding and infection and cellulitis developed. He does see Dr. Samuels who cultured and started him on Levaquin and Bactrim DS. Patient has never had a study done of his lower extremities he does have discoloration from peripheral vascular disease and possibly PAD, because of his history. Patient also has issues with his back therefore is not walking real well or can he care for himself well. Progress of Wound: Today the left lower leg is practically healed filling in nicely beginning to develop definition of his lower leg with compression. Tolerating the double layer Tubigrip's very well. We will continue using Xeroform for now. Patient will not be able to come in next week.We will see him in 2 weeks Subjective Subjective No concerns Objective Data Objective Data Left leg is healing very well has appointment with Dr. Jacob on July 22 for his connection problems on his veins. Vital Signs: Vital Signs Temp Pulse Resp BP 96.2 F L 87 18 143/94 H 07/17/21 08:12 07/17/21 08:12 07/17/21 08:12 07/17/21 08:12 Lab / Micro Data Attestation: I reviewed the patient's lab results. Physical Exam Const oriented x3 General Appearance: cooperative Exam Limitations: no limitations Resp normal respiratory effort Effort and Inspection: able to speak in complete sentences Auscultation: clear to auscultation bilaterally Cardio regular rate and regular rhythm Palpation: normal PMI Rate: regular rate Rhythm: regular rhythm GI Auscultation: normoactive bowel sounds Palpation: soft and no hepatosplenomegaly external exam normal Extremity full ROM; Negative for normal to inspection, normal capillary refill or no clubbing, cyanosis or edema Extremity Narrative: Left lower leg has three quarters of circumferential of the leg open with superficial skin openings on erythematous dry skin probably due to peripheral vascular disease. General Extremity: normal exam except as noted Skin no rashes or lesions noted General Skin Exam: dry skin, erythema, venous stasis and dermatitis Wounds: wounds noted Neuro oriented x3 Psych Appearance: grossly normal Speech: normal speech Thought Content: normal thought content Judgement: judgement good Debridement Note Debridement Note Wound debrided: Left lower leg anterior humphrey Type of Debridement: Excisional debridement Anesthesia Used: 5% Lidocaine Gel Depth: Down to and including healthy tissue Percentage of wound debrided: 100 Instrument Used: 7mm curette Tissue Removed: Devitalized tissue and fibrin Severity: Limited To Skin Breakdown Amount of bleeding with debridement: None Bleeding Controlled with: Compression and gauze Patient tolerated procedure: Patient tolerated procedure well Post-Debridement Measurements and Additional Note: Post-Debridement Measurements/Treatment - Nurse 1 - General Ulcer Assessment Start: 07/10/21 08:08 Freq: Status: Active Protocol: VERONICA Activity Type Activity Date Activity User E-Sign Co-Sign Detail Recorded Client Recorded Date Recorded By Document 07/10/21 08:12 KR [id number] 07/10/21 08:17 KR Document 07/17/21 08:12 PL [id number] 07/17/21 08:19 PL 07/10/21 07/17/21 08:12 08:12 - Today's Visit Information Type of service Initial Visit Follow-up Visit (Physician/[employer] ) Arrival Mode Ambulatory,Cane Cane Transfer Assistance Manual Patient Identification Verified (Name & Yes Yes ) Patient Requires Transmission-Based No Precautions Safety Precautions NA Vital Signs Temperature (97.8 F-99.1 F) 96.9 F L 96.2 F L Temperature Source Temporal Temporal Pulse Rate (60-100) 74 87 Pulse Location Monitor Respiratory Rate (12-18) 18 Blood Pressure (90/60-120/80) 154/77 H 143/94 H Blood Pressure Mean (mm Hg) 102 110 Source Monitor Position Sitting Blood Pressure Location Left Arm History Since Last Visit- (Skip if this is Patient's initial visit) Have you changed medications since your No No last visit? Any new allergies or adverse reactions No No Had a fall/change in ADL's that may No No increase risk of falls Signs or symptoms of abuse and/or No No neglect since last visit Have you been in the hospital since your No No last visit? Has dressing in place as prescribed No Yes Has compression in place as prescribed N/A Yes Has offloadiing in place as prescribed N/A N/A Experienced any changes in pain level or No No management Left Footwear Regular Shoe Right Footwear Regular Shoe Pain Scale: 0-10 Numeric Is Patient Pain Free? Yes Yes WC - Nurse 1 - General Ulcer Measurement Start: 07/10/21 08:08 Freq: Status: Active Protocol: Activity Type Activity Date Activity User E-Sign Co-Sign Detail Recorded Client Recorded Date Recorded By Document 07/10/21 08:12 KR [id number] 07/10/21 08:17 KR Document 07/17/21 08:12 PL [id number] 07/17/21 08:19 PL 07/10/21 07/17/21 08:12 08:12 Wound Center Nurse 1 #2 Left Post leg -Combined with other wound No -Current Size (cm) - Length 7 6.0 -Current Size (cm) - Width 6 1.0 -Current Size (cm) - Depth 0.1 0.1 -Total Square Cm 42 6.00 -Photo Taken No -Epithelialization None Present -Tunneling No -Undermining/Tunneling No -Circular Undermining No -Exudate Amt Small Medium -Exudate Type Serosanguineous Serosanguineous -Wound Margin Distinct, Outline Attached -Granulation Amt Medium (34-66%) Medium (34-66%) -Granulation Quality [place] -Slough/Fibrin Yes -Necrosis Amt Small (1-33%) Medium (34-66%) -Necrotic Tissue Type Eschar Adherent Slough -Texture (Connie-wound Skin Appearance) Assessed, Excoriation Scarring -Moisture (Connie-wound Skin Appearance) Assessed,Dry/ No Abnormality Scaly -Color (Connie-wound Skin Appearance) No Abnormality, Erythema Assessed -Temperature (Connie-wound Skin No Abnormality No Abnormality Appearance) (Pt Warm) (Pt Warm) -Tenderness on Palpation (Connie-wound No Skin Appearance) -Ulcer Cleansing Rinsed/ Rinsed/ Irrigated with Irrigated with Saline Saline -Foul Odor after Cleansing No No -Anesthetic Used 5% Lidocaine 4% Lidocaine Gel Solution #1 Left Anterior Leg -Combined with (Name of Wound-Exactly 3.2 as it is documented) -Current Size (cm) - Length 3.2 0.5 -Current Size (cm) - Width 1.2 0.1 -Current Size (cm) - Depth 0.1 -Total Square Cm 3.84 0.05 -Photo Taken No -Epithelialization None Present -Tunneling No -Undermining/Tunneling No -Circular Undermining No -Exudate Amt Small Medium -Exudate Type Serosanguineous Serosanguineous -Wound Margin Distinct, Outline Attached -Granulation Amt Medium (34-66%) Medium (34-66%) -Granulation Quality [place] -Slough/Fibrin Yes -Necrosis Amt Small (1-33%) Medium (34-66%) -Necrotic Tissue Type Eschar Adherent Slough -Texture (Connie-wound Skin Appearance) Assessed, Excoriation Scarring -Moisture (Connie-wound Skin Appearance) Assessed,Dry/ Scaly -Color (Connie-wound Skin Appearance) Assessed, Erythema Hemosiderin Staining -Temperature (Connie-wound Skin No Abnormality Appearance) (Pt Warm) -Tenderness on Palpation (Connie-wound No Skin Appearance) -Ulcer Cleansing Rinsed/ Irrigated with Saline -Foul Odor after Cleansing No -Anesthetic Used 5% Lidocaine Gel Right Calf (cm) 45.5 Right Ankle (cm) 26.5 Left Ankle (cm) 47 Left Foot (cm) 26 WC - Nurse 2 - General Ulcer CM Notes Start: 07/10/21 08:08 Freq: Status: Active Protocol: Activity Type Activity Date Activity User E-Sign Co-Sign Detail Recorded Client Recorded Date Recorded By Document 07/10/21 08:43 MW [id number] 07/10/21 08:56 MW Document 07/17/21 08:25 MW [id number] 07/17/21 08:29 MW 07/10/21 07/17/21 08:43 08:25 Wound Center Nurse 2 #2 Left Post leg -Time 08:44 08:25 -Correct Patient Yes Yes -Correct Side, Site, Position Yes Yes -Correct Procedure Yes Yes -Procedure Performed Yes Yes -Type of Procedure Debridement Debridement -Clinical Debridement Subcutaneous Subcutaneous -Tissue Removed Subcutaneous Subcutaneous -Post Debridement (cm) - Length 8.0 7.0 -Post Debridement (cm) - Width 7.5 4.0 -Post Debridement (cm) - Depth 0.1 0.1 -Total Square (Post) (cm) 60.00 28.00 -Area of Debridement (cm) - Length 8.0 7.0 -Area of Debridement (cm) - Width 7.5 4.0 -Total Square (Area) (cm) 60.00 28.00 -Tunneling No No -Undermining/Tunneling No No -Circular Undermining No No -Wound/Ulcer Outcome Not Healed Not Healed -Ulcer Cleansing Rinsed/ Rinsed/ Irrigated with Irrigated with Saline Saline -Foul Odor after Cleansing No No -Bioengineered Tissue No No -Bleeding Controlled with Pressure Pressure -Offloading No No -Treatment Response Procedure Procedure Tolerated Well Tolerated Well -Debridement - Subq, 1st 20sq cm Yes Yes -Debridement, SubQ, ea addt'l 20sq cm 3 1 or part thereof #1 Left Anterior Leg -Time 08:44 08:25 -Correct Patient Yes Yes -Correct Side, Site, Position Yes Yes -Correct Procedure Yes Yes -Procedure Performed Yes Yes -Type of Procedure Debridement Debridement -Clinical Debridement Subcutaneous Subcutaneous -Tissue Removed Subcutaneous Subcutaneous -Post Debridement (cm) - Length 4.0 3.7 -Post Debridement (cm) - Width 2.7 1.5 -Post Debridement (cm) - Depth 0.1 0.1 -Total Square (Post) (cm) 10.80 5.55 -Area of Debridement (cm) - Length 4.0 3.7 -Area of Debridement (cm) - Width 2.7 1.5 -Total Square (Area) (cm) 10.80 5.55 -Tunneling No No -Undermining/Tunneling No No -Circular Undermining No No -Wound/Ulcer Outcome Not Healed Not Healed -Ulcer Cleansing Rinsed/ Rinsed/ Irrigated with Irrigated with Saline Saline -Foul Odor after Cleansing No No -Bioengineered Tissue No No -Bleeding Controlled with Pressure Pressure -Offloading No No -Treatment Response Procedure Procedure Tolerated Well Tolerated Well -Debridement - Subq, 1st 20sq cm No No Pain Scale: 0-10 Numeric Is Patient Pain Free? Yes Yes - Nurse 3 - General Ulcer D/C NN Start: 07/10/21 08:08 Freq: Status: Active Protocol: Activity Type Activity Date Activity User E-Sign Co-Sign Detail Recorded Client Recorded Date Recorded By Document 07/17/21 08:35 LION [id number] 07/17/21 08:36 LION 07/17/21 08:35 Wound Care Nurse 3 #2 Left Post leg -Ulcer Cleansing Rinsed/ Irrigated with Saline -Other Dressing xeroform -Primary Dressing Covered/Secured with Dry Gauze #1 Left Anterior Leg -Primary Dressing Covered/Secured with Dry Gauze Right -Other anna wrap Left -Other anna wrap Pain Scale: 0-10 Numeric Is Patient Pain Free? Yes WC - Visit Discharge Discharge Condition Stable Ambulatory Status Ambulatory Transportation Private Auto Accompanied by yamurtaza Additional Wound Wound debrided: Left lower leg posterior calf Type of Debridement: Excisional debridement Anesthesia Used: 5% Lidocaine Gel Depth: Down to and including healthy tissue Percentage of wound debrided: 100 Instrument Used: 7mm curette Tissue Removed: Devitalized tissue and fibrin Severity: Limited To Skin Breakdown Amount of bleeding with debridement: None Bleeding Controlled with: Compression and gauze Patient tolerated procedure: Patient tolerated procedure well Assessment/Plan Assessment/Plan (1) Edema of both lower legs: CODE(S): R60.0 - Localized edema PLAN: Double layer Tubigrip's bilateral lower legs for the edema (2) Peripheral vascular disease of lower extremity with ulceration: CODE(S): I73.9 - Peripheral vascular disease, unspecified; L97.909 - Non- pressure chronic ulcer of unspecified part of unspecified lower leg with unspecified severity PLAN: We will need to get the arterial brachial studies and ultrasounds done of his legs bilaterally Appointment with Dr. Jacob on July 22 (3) Infected wound: CODE(S): T14.8XXA - Other injury of unspecified body region, initial encounter; L08.9 - Local infection of the skin and subcutaneous tissue, unspecified PLAN: Continue the Levaquin and stop the Bactrim DS Wash the left leg with antibacterial soap and apply the Xeroform dressing cover with gauze Braden double layer Tubigrip Follow-up in 1 week
--- NOTE | 2021-07-22 12:55 | VDLE_ITS ---
Reason For Study: Edema RIGHT LEFT CFV is compressible, spontaneous, phasic, CFV is compressible, spontaneous, phasic, competent and demonstrates normal competent, and demonstrates normal augmentation. augmentation. FV is compressible, spontaneous, phasic, FV is compressible, spontaneous, phasic, competent and demonstrates normal competent and demonstrates normal augmentation. augmentation. POP V is compressible, spontaneous, phasic, POP V is compressible, spontaneous, phasic, competent and demonstrates normal competent and demonstrates normal augmentation. augmentation. T/P Trunk is compressible. T/P Trunk is compressible. PTV is compressible. PTV is compressible. RT PerV is compressible. LT PerV is compressible. SFJ is competent and measures 1.05 x 0.94 cm. SFJ is competent and measures 0.99 x 0.93 cm. GSV proximal thigh measures 0.43 x 0.43 cm. GSV proximal thigh measures 0.40 x 0.41 cm. GSV at knee measures 0.29 x 0.30 cm. GSV at knee measures 0.42 x 0.42 cm. GSV is competent throughout. GSV is competent throughout. SSV at junction is competent and measures SSV at junction is competent and measures 0.46 x 0.42 cm. 0.50 x 0.55 cm. Procedure This is a venous duplex using B-mode, color flow and spectral Doppler. Exam performed in department. VL/Venous Duplex US - [place] Extrem Interpretation Summary Deep veins of the lower extremities are bilaterally patent and compressible seg mentally. There is no evidence of deep vein thrombosis on either side. Valvular competence appears in tact within the proximal deep venous systems bilaterally. The great saphenous veins appear bila terally patent and compressible segmentally. Sapheno-femoral junctions are bilaterally competent . Valvular competence appears to be intact segmentally within the great saphenous veins bilaterally. Small saphenous veins are patent and competent bilaterally. Ordering Physician: Sally Michael Referring Physician: James Pisano Chi Performed By: Maureen Mercer RVT
--- NOTE | 2021-07-22 12:55 | ART_ITS ---
Reason For Study: PAD Procedure A bilateral lower extremity continuous wave Doppler with analog waveform analysis,segmental pressures,and ankle brachial indexes without exercise. Left Segmental Pressures Left brachial= 144mmHg. Left posterior tibial artery = >254mmHg. Left dorsalis pedis artery = >254mmHg. Left digit = 137 mmHg. The left dorsalis pedis waveforms are triphasic. The left posterior tibial artery waveforms are triphasic. Right Segmental Pressures Right brachial= 142mmHg. Right posterior tibial artery = >254mmHg. Right dorsalis pedis artery = >254mmHg. Right digit = >254 mmHg. The right dorsalis pedis waveforms are triphasic. The right posterior tibial artery waveforms are triphasic. Indices The right ankle brachial index by the dorsalis pedis is NC. The right ankle brachial index by the posterior tibial artery is NC. The right digital-brachial index is NC. The left ankle brachial index by the dorsalis pedis is NC. The left ankle brachial index by the posterior tibial artery is NC. The left digital-brachial index is 0.95. VL/Lower Ext Art Exam w/o Exercis Interpretation Summary Triphasic Doppler waveforms are noted at ankle level bilaterally. Pulse-volume recordings appear satisfactory at all levels bilaterally, including low thigh, calf, ankle, and d igital levels. Resting ankle-brachial indices could not be determined on either side due to th e non-compressibility of the vasculature. The right digital-brachial index could not be determined du e to the non- compressibility of the vasculature. The left digital-brachial index is normal. There is evidence of arterial calcification at ankle level bilaterally, and at digital level on the right. There is no evidence of significant arterial occlusive disease in the lo wer extremities bilaterally. Ordering Physician: Sally Michael Referring Physician: James Pisano Chi Performed By: Maureen Mercer RVT
[2021-07-31 07:59] VITALS: BP 165/99; PULSE 88; TEMP 35.9
--- NOTE | 2021-07-31 08:46 | PN.PCM_ITS ---
History of Present Illness Date of Service: 07/31/21 Chief Complaint: Follow-up left lower leg edema and open wounds History of Wound: 75-year-old white male with history of coronary artery disease and A. fib is on Coumadin at this time. States about 2 or 3 weeks ago blisters developed on his left lower leg and then of course popped and develops open sores with bleeding and infection and cellulitis developed. He does see Dr. Samuels who cultured and started him on Levaquin and Bactrim DS. Patient has never had a study done of his lower extremities he does have discoloration from peripheral vascular disease and possibly PAD, because of his history. Patient also has issues with his back therefore is not walking real well or can he care for himself well. Progress of Wound: Today all wounds on the left lower leg are healed and the edema is down. The arterial brachial and ultrasound studies show veins look good actually the openings are good there is no problem with the connectors it is all in the arterial flow at the ankles are some calcifications we are going to refer to Dr. Jacob and decrease his compression. Patient will still be discharged from the wound center he can follow-up with Dr. Jacob for further studies. Explained to them that they have all the equipment if he starts to blister up but basically he needs to see Dr. Jacob and see what he can do about the calcifications in the ankle arteries. Subjective Subjective Patient and service support representative happy with his progress Objective Data Objective Data As above patient will be discharged from the wound center and follow-up as needed Vital Signs: Vital Signs Temp Pulse Resp BP 96.7 F L 88 18 165/99 H 07/31/21 07:59 07/31/21 07:59 07/17/21 08:12 07/31/21 07:59 Physical Exam Const oriented x3 General Appearance: cooperative Exam Limitations: no limitations HEENT normocephalic Head and Scalp: normal to inspection Face and Sinus: normal facial exam Nose: external nose normal General Ear: hearing grossly impaired External Ear: external ears normal Mouth: oral and palatal mucosa normal Eyes PERRL General Eye: normal appearance of both eyes Neck full ROM General: normal visual inspection Resp normal respiratory effort Effort and Inspection: able to speak in complete sentences Auscultation: clear to auscultation bilaterally Cardio regular rate and regular rhythm Palpation: normal PMI Rate: regular rate Rhythm: regular rhythm GI Auscultation: normoactive bowel sounds Palpation: soft and no hepatosplenomegaly external exam normal Back/Spine Cervical Spine: cervical ROM normal Thoracic Spine / Upper Back: normal to inspection Lumbar Spine / Lower Back: normal to inspection Extremity normal to inspection General Extremity: normal exam except as noted Skin no rashes or lesions noted Neuro oriented x3 Psych Appearance: grossly normal Speech: normal speech Thought Content: normal thought content Judgement: judgement good Debridement Note Debridement Note Wound debrided: Left lower leg No debridement was completed: No debridement was completed today Assessment/Plan Assessment/Plan (1) Edema of both lower legs: CODE(S): R60.0 - Localized edema PLAN: Single layer Tubigrip's bilateral lower legs for the edema 1 worsening may double up. (2) Peripheral vascular disease of lower extremity with ulceration: CODE(S): I73.9 - Peripheral vascular disease, unspecified; L97.909 - Non- pressure chronic ulcer of unspecified part of unspecified lower leg with unspecified severity PLAN: Appointment with Dr. Jacob on July 22 (3) Infected wound: CODE(S): T14.8XXA - Other injury of unspecified body region, initial encounter; L08.9 - Local infection of the skin and subcutaneous tissue, unspecified PLAN: Wash the left leg with antibacterial soap and apply AmLactin cream daily
== END 2021-07-31 08:36 | disposition home or self-care (01) ==
LOC: WC 08:00
PROVIDERS: PCP Family Medicine Geriatric Medicine; Referring Provider Nurse Practitioner; Visit Provider Nurse Practitioner
DX: I73.9 Peripheral vascular disease, unspecified (principal); R60.0 Localized edema; I25.10 Atherosclerotic heart disease of native coronary artery without angina pectoris; Z79.01 Long term (current) use of anticoagulants; E78.5 Hyperlipidemia, unspecified; I10 Essential (primary) hypertension; I48.19 Other persistent atrial fibrillation; Z79.899 Other long term (current) drug therapy; Z87.891 Personal history of nicotine dependence; L08.9 Local infection of the skin and subcutaneous tissue, unspecified; S80.822A Blister (nonthermal), left lower leg, initial encounter; X58.XXXA Exposure to other specified factors, initial encounter
CPT/HCPCS: 11042; 11045; 93923; 93970; 99213; G0463

== ENCOUNTER 2021-08-20 15:32 | Outpatient (RCR) | payer MEDICARE, SELFPAY ==
[2021-08-08 20:35] VITALS: BMI 39.2
[2021-08-20 16:49] LABS: International Normalized Ratio 1.5; Prothrombin Time (Protime)PT. 17.3 SECONDS (11.7-14.9)
== END 2021-09-08 03:46 | disposition home or self-care (01) ==
LOC: LAB 15:32
PROVIDERS: PCP Family Medicine Geriatric Medicine; Referring Provider Internal Medicine Cardiovascular Disease; Visit Provider Internal Medicine Cardiovascular Disease
DX: I48.19 Other persistent atrial fibrillation (principal); Z79.01 Long term (current) use of anticoagulants
CPT/HCPCS: 36415; 85610

== ENCOUNTER → 2021-09-17 14:32 | Outpatient (CLI) | payer MEDICARE, SELFPAY ==
[2021-09-17 16:13] LABS: Absolute Lymphocyte Count 0.94 X10^3/uL (0.83-4.51); Absolute Neutrophil Count 2.9 X10^3/uL (2.0-7.7); Basophil# 0.03 X10^3/uL; Basophil% 0.7 % (0-1); Eosinophil# 0.16 X10^3/uL; Eosinophils% 3.7 % (0-5); Hematocrit 35.8 % (40-54); Hemoglobin 12.1 g/dL (13.0-16.5); Lymphocyte # 0.94 X10^3/ul (0.83-4.51); Lymphocyte % 21.6 % (19-41); Mean Corp Hgb Conc 33.8 g/dL (32-36); Mean Corpuscular Hgb 28.7 pg (27.0-32.0); Mean Platelet Vol. 9.5 fl (6.2-12.0); Monocyte# 0.36 X10^3/uL; Monocyte% 8.3 % (0-10); NRBC Flagged by Analyzer 0 % (0-5); Neutrophil # 2.86 X10^3/uL (2.7-7.7); Neutrophil % 65.5 % (47-70); Platelet Count 121 K/mm3 (150-450); RBC Distribution Width CV 13.1 % (11.6-14.6); RBC Distribution Width SD 40.1 fl (35.1-43.9); Red Blood Count 4.21 M/mm3 (4.6-6.2); White Blood Count 4.4 K/mm3 (4.4-11.0)
[2021-09-17 16:20] LABS: International Normalized Ratio 1.8; Prothrombin Time (Protime)PT. 20.2 SECONDS (11.7-14.9)
[2021-09-17 16:38] LABS: ALB/GLOB Ratio 0.7 RATIO (0.9-2.4); AST(SGOT) 19 U/L (15-37); Alanine Aminotransfer ALT/SGPT 20 U/L (16-61); Albumin, Serum 3.1 g/dL (3.2-5.0); Alkaline Phosphatase 132 U/L (45-117); Anion Gap 3 (5-15); BUN 16 mg/dL (7-18); BUN/Creat Ratio 21.1 RATIO (10-20); Calcium,Total 9.3 mg/dL (8.5-10.1); Chloride 108 mmol/L (98-107); Creatinine, Serum 0.76 mg/dL (0.70-1.30); EST Glomerular Filtration Rate 107 mL/min (>60); Est Glom Filt Rate - Afr Amer 129 mL/min (>60); Globulin 4.2 g/dL (2.2-4.2); Glucose 80 mg/dL (74-106); Potassium 4.1 mmol/L (3.5-5.1); Protein, Total 7.3 g/dL (6.4-8.2); Sodium Level 141 mmol/L (136-145); Thyroid Stim Hormone (TSH) 2.74 uIU/mL (0.358-3.74)
[2021-09-17 17:59] LABS: Vitamin D,25 Hydroxy 45.2 ng/mL
== END ==
PROVIDERS: PCP Family Medicine Geriatric Medicine; Visit Provider Family Medicine Geriatric Medicine
DX: E55.9 Vitamin D deficiency, unspecified (principal); F52.8 Other sexual dysfunction not due to a substance or known physiological condition; I10 Essential (primary) hypertension; Z79.01 Long term (current) use of anticoagulants
CPT/HCPCS: 36415; 80053; 82306; 84403; 84443; 85025; 85610

== ENCOUNTER 2021-10-18 14:49 | Outpatient (RCR) | payer MEDICARE, SELFPAY ==
[2021-09-08 03:46] VITALS: BMI 39.2
[2021-10-18 16:31] LABS: International Normalized Ratio 2.2; Prothrombin Time (Protime)PT. 23.3 SECONDS (11.7-14.9)
== END 2021-11-09 18:00 | disposition home or self-care (01) ==
LOC: LAB 14:49
PROVIDERS: PCP Family Medicine Geriatric Medicine; Referring Provider Internal Medicine Cardiovascular Disease; Visit Provider Internal Medicine Cardiovascular Disease
DX: I48.19 Other persistent atrial fibrillation (principal); Z79.01 Long term (current) use of anticoagulants
CPT/HCPCS: 36415; 85610

== ENCOUNTER 2021-11-25 12:08 | Inpatient (IN) | payer MEDICARE, SELFPAY ==
[2021-11-25 12:09] VITALS: BP 123/73; PULSE 90; RESP 12; TEMP 37.2; O2SAT 92; BMI 39.2
--- NOTE | 2021-11-25 12:25 | RAD_ITS ---
STUDY: X-RAY CHEST REASON FOR EXAM: Male, 76 years old. Cough TECHNIQUE: Single AP portable view of the chest. COMPARISON: Comparison is made with prior study dated 01/05/2021. FINDINGS: EKG electrodes are seen. The lungs are clear and expanded. There is no demonstrated pleural abnormality. Sternal cerclage wires are present from a prior sternotomy. Moderate cardiomegaly. Normal mediastinum and parul. Normal visualized pulmonary arteries. Normal visualized aortic arch and descending thoracic aorta. Prior screw and jeana fixation of the mid thoracic and upper lumbar vertebrae. Prior fusion of the lower cervical spine. There is degenerative osteoarthritis of the bilateral shoulders. There is no demonstrated abnormality of the visualized soft tissue structures of the upper abdomen. RAD/Chest 1 View (Portable) IMPRESSION: Prior CABG. Cardiomegaly. No acute abnormality is seen. Electronically Signed: Benjie Lieberman MD at 13:37 EST , Service support ,
--- NOTE | 2021-11-25 12:26 | EKG12_ITS ---
Test Reason : Blood Pressure : / mmHG Vent. Rate : 073 BPM Atrial Rate : 277 BPM P-R Int : 000 ms QRS Dur : 088 ms QT Int : 380 ms P-R-T Axes : 000 017 020 degrees QTc Int : 418 ms Atrial fibrillation Abnormal ECG Confirmed by HANNAH SIMON, ANNA ([id number]), editor index DEIRDRE BALTAZAR ([id number]) on 11/27/2021 9:09:36 AM Referred By: MATTHEW Confirmed By:ANNA YOUNG MD
--- NOTE | 2021-11-25 12:41 | EX.ED.DYSGE1 ---
HPI History of Present Illness Chief Complaint: Weakness Informant: patient Onset/Context/Timing Onset: Today Current Severity: Mild Maximum Severity: Moderate Narrative Narrative: Patient presents secondary to generalized weakness. Patient states that he was too weak to get out of bed this morning. He was up to the bathroom several times during the night with no difficulty. He denies pain, shortness of breath, vomiting, or diarrhea. [facility] Medical History Atherosclerotic heart disease of [place] coronary artery without angina pectoris Essential hypertension Former tobacco use Fracture of ninth thoracic vertebra (12/27/18) History of Clostridium difficile infection (01/09/19) History of subdural hematoma (post traumatic) (12/27/18) Hyperlipidemia retirement (current) use of anticoagulants Longstanding persistent atrial fibrillation Sepsis Traumatic hemothorax (12/30/18) Home Medications atorvastatin 80 mg PO QHS 04/02/16 [History Last Taken Unknown] potassium chloride 20 mEq tablet,extended release 20 meq PO DAILY 12/03/18 [History Last Taken Unknown] cetirizine 10 mg PO DAILY 12/27/18 [History Last Taken Unknown] acetaminophen 325 mg tablet 650 mg PO Q4H PRN tab 03/09/19 [History Last Taken Unknown] cromolyn 5.2 mg/spray (4 %) nasal spray 2 spray INTRANASAL DAILY ml 03/09/19 [History Last Taken Unknown] metoprolol tartrate 50 mg tablet 50 mg PO BID 03/15/19 [History Last Taken Unknown] terazosin 10 mg capsule 10 mg PO QHS 03/15/19 [History Last Taken Unknown] leuprolide (3 month) 22.5 mg (3 month) intramuscular syringe kit 11.25 mg IM [id number] 04/23/20 [History Last Taken Unknown] losartan 100 mg tablet 100 mg PO DAILY 04/23/20 [History Last Taken Unknown] cholecalciferol (vitamin D3) 1,250 mcg (50,000 unit) capsule 1,000 unit PO ONCE cap 10/29/20 [History Last Taken Unknown] enzalutamide 160 mg PO DAILY 01/05/21 [History Last Taken Unknown] warfarin 5 mg tablet 5 mg PO .COMPLEX #120 tab 06/19/21 [Rx Last Taken Unknown] Allergy/AdvReac Type Severity Reaction Status Date / Time amiodarone AdvReac Intermediate It did not Verified 11/25/21 12:16 work, also bad dreams and neuropathy Family History Father , Age 57 Myocardial infarction CAD (coronary artery disease) ETOH abuse Mother , Age 47, of bone cancer Bone cancer Brother , age 45, of AIDS AIDS (acquired immune deficiency syndrome) Surgical History H/O cervical spine surgery (01/2020) H/O coronary artery bypass surgery (11/26/98) History of left heart catheterization (11/26/98) History of thoracic spinal fusion (12/30/18) Social History Smoking Status: Former smoker ROS ROS ED Constitutional Constitutional ED: Denies chills or fever(s) Eyes Eyes: Denies change in vision ENT ENT ED: Denies sore throat Cardiovascular Cardiovascular: Denies chest pain Respiratory/Chest Respiratory/Chest: Denies cough or dyspnea Gastrointestinal Gastrointestinal: Denies abdominal pain, diarrhea, nausea or vomiting Genitourinary Genitourinary ED: Denies dysuria Musculoskeletal Musculoskeletal: Denies back pain Integumentary Denies rash Neurologic Neurologic: Reports weakness; Denies headache(s) Allergic/Immunologic Allergic/Immunologic ED: Denies urticaria EXAM Physical Exam Const Vital Signs: 11/25/21 12:09 11/25/21 12:17 Temperature 99.0 F Temperature Source Oral Pulse Rate 90 Respiratory Rate 12 Respiratory Effort Normal Non-Labored Respiratory Pattern Normal Blood Pressure 123/73 H Blood Pressure Mean 89 Pulse Ox 92 Oxygen Delivery Method Room Air Positive well nourished and well developed General Appearance ED: well developed HEENT Reports moist mucous membranes Eyes PERRL and EOMs intact bilaterally Neck no lymphadenopathy and supple Chest Wall inspection of chest normal and palpation of chest normal Resp normal respiratory effort and clear to auscultation bilaterally Cardio regular rate and regular rhythm GI non-tender Palpation: soft Extremity normal to inspection Neuro oriented x3 Neuro Narrative: No focal neuro deficits Sensorium / Orientation: alert Psych mental status grossly normal Skin no rashes or lesions noted MDM MDM MDM Narrative Medical decision making narrative: Lab work, COVID test, EKG obtained. Portable chest x-ray ordered. Lab Data Attestation: I reviewed the patient's lab results. Labs: Laboratory Results - last 24 hr 11/25/21 11/25/21 11/25/21 13:05 13:05 13:05 WBC 4.3 L RBC 4.12 L Hgb 12.0 L Hct 35.7 L MCV 86.7 MCH 29.1 MCHC 33.6 RDW Std Deviation 42.8 RDW Coeff of Dick 13.7 Plt Count 107 L MPV 8.6 Immature Gran % (Auto) 0.200 Neut % (Auto) 77.2 H Lymph % (Auto) 8.1 L [place] % (Auto) 12.8 H Eos % (Auto) 1.2 Baso % (Auto) 0.5 Absolute Neuts (auto) 3.3 Absolute Lymphs (auto) 0.35 L Nucleated RBC % 0 Diff Path Review March foll PT 22.0 H INR 2.0 Sodium 142 Potassium 3.9 Chloride 107 Carbon Dioxide 29.0 Anion Gap 6 BUN 22 H Creatinine 0.76 Estim Creat Clear Calc 71.13 Est GFR (MDRD) Af Amer 129 Est GFR (MDRD) Non-Af 106 BUN/Creatinine Ratio 28.9 H Glucose 99 Calcium 8.9 Rapid COVID: Negative Radiography Chest X-Ray - ED: 1 View, Read by ED Physician and Chronic Changes Diagnostic Testing: Clinical Impression(s) from Imaging Studies Chest X-Ray 11/25/21 12:25 IMPRESSION: Prior CABG. Cardiomegaly. No acute abnormality is seen. Electronically Signed: Benjie Lieberman MD at 13:37 EST , Service support , EKG Initial EKG: Attestation: I personally reviewed and interpreted this EKG as follows: Interpretation: Atrial Fibrillation (A. fib at 75 with no acute ischemia.) Treatment and Re-Evaluation Comments:: Repeat evaluation patient resting comfortably. Test results discussed with him. COVID test is negative. Lab work is unremarkable. Chest x-ray clear. Patient was able to stand at bedside to urinate but was too unsteady to walk. He does live alone. I will speak with hospitalist regarding observation and evaluation by physical therapy. Urinalysis will be sent. Discharge Plan Triage Chief Complaint: Weakness ED Provider: Jie Brady Dx/Rx/DC Orders Clinical Impression: Generalized weakness, Unable to ambulate Prescriptions: No Action potassium chloride 20 mEq tablet extended release 20 meq PO DAILY RF: 0 cholecalciferol (vitamin D3) 1,250 mcg (50,000 unit) capsule 1,000 unit PO ONCE RF: 0 acetaminophen 325 mg tablet 650 mg PO Q4H PRN (Reason: Pain) RF: 0 cromolyn [Nasalcrom] 5.2 mg/spray (4 %) spray,non-aerosol 2 spray INTRANASAL DAILY RF: 0 metoprolol tartrate 50 mg tablet 50 mg PO BID RF: 0 terazosin 10 mg capsule 10 mg PO QHS RF: 0 losartan 100 mg tablet 100 mg PO DAILY RF: 0 Lupron [place] (3 month) 22.5 mg syringe kit 11.25 mg IM [id number] RF: 0 atorvastatin 80 MG tablet 80 mg PO QHS RF: 0 cetirizine 10 MG capsule 10 mg PO DAILY RF: 0 enzalutamide 40 MG capsule 160 mg PO DAILY RF: 0 warfarin 5 mg tablet 5 mg PO .COMPLEX Qty: 120 RF: 3 Primary Care Provider: James Pisano Chi Referrals: James Pisano Chi, MD [Primary Care Provider] - Disposition Disposition: Acute Care Hospital [facility]
[2021-11-25 13:13] LABS: Absolute Lymphocyte Count 0.35 X10^3/uL (0.83-4.51); Absolute Neutrophil Count 3.3 X10^3/uL (2.0-7.7); Basophil# 0.02 X10^3/uL; Basophil% 0.5 % (0-1); Eosinophil# 0.05 X10^3/uL; Eosinophils% 1.2 % (0-5); Hematocrit 35.7 % (40-54); Lymphocyte # 0.35 X10^3/ul (0.83-4.51); Lymphocyte % 8.1 % (19-41); Mean Corp Hgb Conc 33.6 g/dL (32-36); Mean Corpuscular Hgb 29.1 pg (27.0-32.0); Mean Corpuscular Volume 86.7 fL (80-94); Mean Platelet Vol. 8.6 fl (6.2-12.0); Monocyte# 0.55 X10^3/uL; Monocyte% 12.8 % (0-10); NRBC Flagged by Analyzer 0 % (0-5); Neutrophil # 3.32 X10^3/uL (2.7-7.7); Neutrophil % 77.2 % (47-70); POSITIVE DIFFERENTIAL YES; Platelet Count 107 K/mm3 (150-450); RBC Distribution Width CV 13.7 % (11.6-14.6); RBC Distribution Width SD 42.8 fl (35.1-43.9); Red Blood Count 4.12 M/mm3 (4.6-6.2); White Blood Count 4.3 K/mm3 (4.4-11.0)
[2021-11-25 13:14] LABS: Differential Indicated SCAN CRITERIA MET
[2021-11-25 13:24] LABS: Anion Gap 6 (5-15); BUN 22 mg/dL (7-18); BUN/Creat Ratio 28.9 RATIO (10-20); Calcium,Total 8.9 mg/dL (8.5-10.1); Chloride 107 mmol/L (98-107); Creatinine, Serum 0.76 mg/dL (0.70-1.30); EST Glomerular Filtration Rate 106 mL/min (>60); Est Glom Filt Rate - Afr Amer 129 mL/min (>60); Estimated Creatinine Clearance 71.13 ml/min; Glucose 99 mg/dL (74-106); Potassium 3.9 mmol/L (3.5-5.1); Sodium Level 142 mmol/L (136-145)
[2021-11-25 14:09] LABS: Bacteria 0 SEEN /hpf (None Seen); Mucous, Urine 0 SEEN /hpf (<or=2+); Red Blood Cells-Urine 0 SEEN /hpf (0-5); Squamous Epithelial Cells - UA 0 SEEN /hpf (0-5); White Blood Cells 0 SEEN /hpf (0-5)
[2021-11-25 14:18] LABS: Color, Urine Yellow (Yellow); Glucose, Dipstick Normal (Normal); Ketone-Dipstick Negative (Negative); Leukocyte Esterase-Dipstick Negative /ul (Negative); Nitrite-Dipstick Negative (Negative); Occult Blood-Urine Negative /ul (Negative); Protein-Dipstick Negative (Negative); Urine Bilirubin Dipstick Negative (Negative); Urine Clarity Clear (Clear); Urine Urobilinogen 1 mg/dl (Normal)
[2021-11-25 14:28] VITALS: BP 128/81; PULSE 95; RESP 16; TEMP 36.2; O2SAT 94
[2021-11-25 14:29] VITALS: BP 128/81; O2SAT 94
--- NOTE | 2021-11-25 15:08 | HP.PCM_ITS ---
Documented by User: GRIFFNI Encarnacion 11/25/21 15:31 HPI - General General Date of Admission: 11/25/21 Date of Service: 11/25/21 Chief Complaint: Debility HPI Narrative MEENAKSHI NI, is a 76 M who presents with complaints of weakness and confusion. Patient reports that he got up to the bathroom multiple times through the night with no difficulty however he woke up with generalized weakness and was too weak to get out of bed this morning. Patient denies feeling ill however patient is cognizant of his confusion as well. Patient has a reported medical history including hypertension, atrial fibrillation, prostate cancer, hyperlipidemia. [facility] Medical History Atherosclerotic heart disease of [place] coronary artery without angina pectoris Essential hypertension Former tobacco use Fracture of ninth thoracic vertebra (12/27/18) History of Clostridium difficile infection (01/09/19) History of subdural hematoma (post traumatic) (12/27/18) Hyperlipidemia custodial (current) use of anticoagulants Longstanding persistent atrial fibrillation Sepsis Traumatic hemothorax (12/30/18) Home Medications atorvastatin 80 mg PO QHS 04/02/16 [History Last Taken 11/24/21 22:00 80 mg] potassium chloride 20 mEq tablet,extended release 20 meq PO DAILY 12/03/18 [History Last Taken 11/25/21 10:00 20 meq] cetirizine 10 mg PO DAILY 12/27/18 [History Last Taken 11/25/21 10:00 10 mg] acetaminophen 325 mg tablet 650 mg PO Q4H PRN tab 03/09/19 [History Last Taken 11/24/21 21:00 650] cromolyn 5.2 mg/spray (4 %) nasal spray 2 spray INTRANASAL DAILY ml 03/09/19 [History Last Taken 11/25/21 10:00 2 sprays] metoprolol tartrate 50 mg tablet 50 mg PO BID 03/15/19 [History Last Taken 11/25/21 10:00 50 mg] terazosin 10 mg capsule 10 mg PO QHS 03/15/19 [History Last Taken 11/24/21 22:00 10 mg] leuprolide (3 month) 22.5 mg (3 month) intramuscular syringe kit 11.25 mg IM [id number] 04/23/20 [History Last Taken Unknown] losartan 100 mg tablet 100 mg PO DAILY 04/23/20 [History Last Taken 11/25/21 10:00 100] cholecalciferol (vitamin D3) 1,250 mcg (50,000 unit) capsule 1,000 unit PO DAILY cap 10/29/20 [History Last Taken 11/24/21 22:00 1000 units] enzalutamide 160 mg PO DAILY 01/05/21 [History Last Taken 11/24/21 22:00 160 mg] warfarin 7.5 mg PO DAILY 11/25/21 [History Last Taken 11/24/21 21:00 7.5mg] Allergy/AdvReac Type Severity Reaction Status Date / Time amiodarone AdvReac Intermediate It did not Verified 11/25/21 12:16 work, also bad dreams and neuropathy Family History Father , Age 57 Myocardial infarction CAD (coronary artery disease) ETOH abuse Mother , Age 47, of bone cancer Bone cancer Brother , age 45, of AIDS AIDS (acquired immune deficiency syndrome) Surgical History H/O cervical spine surgery (01/2020) H/O coronary artery bypass surgery (11/26/98) History of left heart catheterization (11/26/98) History of thoracic spinal fusion (12/30/18) Social History Smoking Status: Former smoker ROS Constitutional Constitutional: Reports weakness; Denies anorexia, chills, fatigue, fever(s) or malaise ENT HEENT: Reports sore throat Cardiovascular Cardiovascular: Denies chest pain, claudication, edema, palpitations or syncope Respiratory/Chest Respiratory/Chest: Denies cough, shortness of breath at rest, shortness of breath with exertion or wheezing Gastrointestinal Gastrointestinal: Denies abdominal pain, constipation, diarrhea, nausea or vomiting Genitourinary Genitourinary: Denies dysuria Musculoskeletal Musculoskeletal: Denies back pain, extremity pain, joint pain, joint stiffness or joint swelling Integumentary Integumentary: Denies dry skin or jaundice Neurologic Neurologic: Reports confusion and weakness; Denies abnormal gait, abnormal speech, dizziness or focal weakness Psychiatric Psychiatric: Denies anxiety or depression Endocrine Endocrinology: Denies change in body appearance Hematologic/Lymphatic Hematologic/Lymphatic: Denies anemia, easy bleeding or easy bruising Vital Signs Vital Signs Vital Signs: 11/25/21 12:09 11/25/21 12:17 11/25/21 14:28 Temperature 99.0 F 97.1 F L Temperature Source Oral Temporal Pulse Rate 90 95 Respiratory Rate 12 16 Respiratory Effort Normal Non-Labored Respiratory Pattern Normal Blood Pressure 123/73 H 128/81 H Blood Pressure Mean 89 96 Pulse Ox 92 94 Oxygen Delivery Method Room Air Room Air 11/25/21 14:29 Temperature Temperature Source Pulse Rate Respiratory Rate Respiratory Effort Respiratory Pattern Blood Pressure 128/81 H Blood Pressure Mean 96 Pulse Ox 94 Oxygen Delivery Method Room Air Weight Weight: 289 lb 10.998 oz Body Mass Index (BMI) 39.2 Physical Exam Const alert and no apparent distress General Appearance: cooperative Orientation / Consciousness: oriented to person, oriented to place and confused HEENT normocephalic and head/scalp atraumatic Eyes conjunctivae normal and no scleral icterus Neck supple General: trachea midline Lymph Lymphatic: no lymphadenopathy noted Resp normal respiratory effort, normal air movement and clear to auscultation bilaterally Cardio regular rate, regular rhythm, S1 normal heart sound and S2 normal heart sound GI normal to inspection, nondistended, normoactive bowel sounds, soft to palpation and non-tender Extremity normal capillary refill and no clubbing, cyanosis or edema General Extremity: no tenderness to palpation of joints or extremities Skin General Skin Exam: no breakdown and turgor normal Lesions: no lesions Rashes: no rashes Neuro no focal motor deficits and no sensory deficits noted Speech: speech normal Motor Exam: general weakness Psych cooperative Speech: normal speech Thought Process: confused Results Lab / Micro Data Result Diagrams: 11/25/21 13:05 11/25/21 13:05 Labs: Laboratory Results - last 24 hr 11/25/21 13:05: WBC 4.3 L, RBC 4.12 L, Hgb 12.0 L, Hct 35.7 L, MCV 86.7, MCH 29.1, MCHC 33.6, RDW Std Deviation 42.8, RDW Coeff of Dick 13.7, Plt Count 107 L, MPV 8.6, Immature Gran % (Auto) 0.200, Neut % (Auto) 77.2 H, Lymph % (Auto) 8.1 L, [place] % (Auto) 12.8 H, Eos % (Auto) 1.2, Baso % (Auto) 0.5, Absolute Neuts (auto) 3.3, Absolute Lymphs (auto) 0.35 L, Nucleated RBC % 0, Diff Path Review March11/25/21 13:05: PT 22.0 H, INR 2.0 11/25/21 13:05: Sodium 142, Potassium 3.9, Chloride 107, Carbon Dioxide 29.0, Anion Gap 6, BUN 22 H, Creatinine 0.76, Estim Creat Clear Calc 71.13, Est GFR (MDRD) Af Amer 129, Est GFR (MDRD) Non-Af 106, BUN/Creatinine Ratio 28.9 H, Glucose 99, Calcium 8.9 11/25/21 14:05: Urine Color Yellow, Urine Clarity Clear, Urine pH 7.0, Ur Specific [place] 1.010, Urine Protein Negative, Urine Glucose (UA) Normal, Urine Ketones Negative, Urine Occult Blood Negative, Urine Nitrite Negative, Urine Bi lirubin Negative, Urine Urobilinogen 1 H, Ur Leukocyte Esterase Negative, Urine RBC 0 SEEN, Urine WBC 0 SEEN, Ur Squamous Epith Cells 0 SEEN, Urine Bacteria 0 SEEN, Urine Mucus 0 SEEN Micro: Microbiology 11/25/21 12:47 Nasal Secretion SARS-CoV-2 Antigen (Rapid) - Final Radiology Impression Chest X-Ray 11/25/21 12:25 IMPRESSION: Prior CABG. Cardiomegaly. No acute abnormality is seen. Electronically Signed: Benjie Lieberman MD at 13:37 EST , Service support , Assessment & Plan Assessment/Plan (1) Generalized weakness: PLAN: 1. Generalized weakness -Admit to MedSurg -PT and OT to eval and treat -Vital signs per protocol, stable -UA negative, chest x-ray demonstrates cardiomegaly -Patient currently undergoing treatment for prostate cancer, follows with Dr. Muñoz 2. Prostate cancer -Patient currently on leuprolide, terazosin, enzalutamide -We will continue home medication regimen 3. Atrial fibrillation -Continue home warfarin, metoprolol -Patient is rate currently well controlled -PT/INR daily 4. Hypertension -Continue home medication regimen including losartan -Vital signs per protocol, currently stable -Cardiac diet ordered DVT prophylaxis-chronically anticoagulated This patient was seen by GRIFFIN Encarnacion under the supervision of Dr. Ryan morales 16 minutes spent in clinical coordination of patient's plan of care. Documented by User: Dr. Jame Colindres MD 11/25/21 19:58 HPI - General General Date of Admission: 11/25/21 Date of Service: 11/25/21 Chief Complaint: Bilateral leg weakness, generalized weakness for 1 day. HPI Narrative This 76-year-old gentleman was brought to ED by EMS with bilateral leg weakness. As per EMS, his friend said that he has noticed progressive weakness over the last couple days but patient said he walked and went to bathroom yesterday x2 but today could not get up from the bed or walk. Usually he goes to bathroom twice in the nighttime and denies burning duration or new change in urinary symptoms. Patient has chronic back pain and had surgery with cage implant in C-spine and thoracic spine in the past by thoracic surgeon Shoaib Dixon Dr.. He was recommended lumbar surgery by him recently. History is limited as patient and EMS report contradicts with regard to timing of onset. Patient also complaining of low back fever and EMS found temperature 100.3 ?F. Patient denies new or acute severity of lower back pain although he has chronic lumbar spine pain which has not changed in severity or acuity or consistency. Denies paresthesia, numbness/hot or cold sensation in lower legs. No cough or shortness of breath. 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 Longstanding persistent atrial fibrillation Sepsis Traumatic hemothorax (12/30/18) Home Medications atorvastatin 80 mg PO QHS 04/02/16 [History Last Taken 11/24/21 22:00 80 mg] potassium chloride 20 mEq tablet,extended release 20 meq PO DAILY 12/03/18 [History Last Taken 11/25/21 10:00 20 meq] cetirizine 10 mg PO DAILY 12/27/18 [History Last Taken 11/25/21 10:00 10 mg] acetaminophen 325 mg tablet 650 mg PO Q4H PRN tab 03/09/19 [History Last Taken 11/24/21 21:00 650] cromolyn 5.2 mg/spray (4 %) nasal spray 2 spray INTRANASAL DAILY ml 03/09/19 [History Last Taken 11/25/21 10:00 2 sprays] metoprolol tartrate 50 mg tablet 50 mg PO BID 03/15/19 [History Last Taken 11/25/21 10:00 50 mg] terazosin 10 mg capsule 10 mg PO QHS 03/15/19 [History Last Taken 11/24/21 22:00 10 mg] leuprolide (3 month) 22.5 mg (3 month) intramuscular syringe kit 11.25 mg IM [id number] 04/23/20 [History Last Taken Unknown] losartan 100 mg tablet 100 mg PO DAILY 04/23/20 [History Last Taken 11/25/21 10:00 100] cholecalciferol (vitamin D3) 1,250 mcg (50,000 unit) capsule 1,000 unit PO DAILY cap 10/29/20 [History Last Taken 11/24/21 22:00 1000 units] enzalutamide 160 mg PO DAILY 01/05/21 [History Last Taken 11/24/21 22:00 160 mg] warfarin 7.5 mg PO DAILY 11/25/21 [History Last Taken 11/24/21 21:00 7.5mg] Allergy/AdvReac Type Severity Reaction Status Date / Time amiodarone AdvReac Intermediate It did not Verified 11/25/21 12:16 work, also bad dreams and neuropathy Family History Father , Age 57 Myocardial infarction CAD (coronary artery disease) ETOH abuse Mother , Age 47, of bone cancer Bone cancer Brother , age 45, of AIDS AIDS (acquired immune deficiency syndrome) Surgical History H/O cervical spine surgery (01/2020) H/O coronary artery bypass surgery (11/26/98) History of left heart catheterization (11/26/98) History of thoracic spinal fusion (12/30/18) Social History Smoking Status: Former smoker Physical Exam Narrative General: Alert, Oriented x3, Cooperative, morbid obesity BMI 38.8 kg per metered square HEENT: Atraumatic, PERRLA, EOMI, Normocephalic Oral: No Gingival or Mucosal Lesions/ Ulcerations Neck: Supple, No JVD, Negative Carotid Bruits Lungs: Air entry diminished in bilateral lung bases. No crepitation/rhonchi Cardiovascular: Irregular rate and rhythm, Normal S1, Normal S2, systolic murmur LLSB Abdomen: Bowel Sounds Present, Soft, Non Tender, Non-Distended Rectal exam: Anal sphincter tone intact. Fecal staining of finger. : Penis buried. Intact sensation over perineal region. Urinary soiling/wet diaper/urinary incontinence. No renal angle tenderness. No suprapubic tenderness. Extremities: Mild bilateral ankle pitting edema, Capillary Refill Less than 3 Seconds Skin: Grayish discoloration of his skin, venous hypertension, stasis dermatitis Musculoskeletal/spine: No Tenderness to Palpation of Joints or Extremities. No point tenderness over lumbar spine, thoracic spine or C-spine. 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 RLE, 3/5 at hip and knee joints. LLE 4/5 at hip and knee joints Neurological: Cranial nerves II-XII grossly intact, DTR 2+/4. No significant difference in sensation in both lower extremities Psych/Mental Status: Normal Affect, Appropriate. Results Lab / Micro Data Result Diagrams: 11/25/21 13:05 11/25/21 13:05 Assessment & Plan Assessment/Plan (1) Generalized weakness: PLAN: This patient was seen in conjunction with NARINDER Castaneda. I have independently interviewed and examined the patient and reviewed pertinent history, examination findings, laboratory and plan of management. I have reviewed the note and agree with the documented findings with the few additional points. In brief, patient is admitted for generalized weakness but found predominant lower extremity weakness, left more than right. No acute T or severity of lumbar thoracic/cervical spine pain. No difference or asymmetry in sensation of lower extremities. MRI thoracic and lumbar spine ordered. Orthospine Dr. Rm is consulted for further opinion. I do not think patient requires dexamethasone or acute treatment until further diagnosis clear. PT and OT ordered. Patient has A. fib chronic. Takes warfarin 7.5 mg daily. INR therapeutic, 2.0. History of prostate cancer on medications mentioned above. Needs MRI for f urther looking for bony metastasis. Other comorbid include hypertension. I have discussed my assessment with Tonya, NARINDER and orders have been reviewed. Total time of the visit including total time spent in counseling or coordination of care, (more than 50% of the total time, spent in obtaining medical information from nurses and other ancillary care providers,explaining to the patient about labs, imaging, diagnosis and management), coordination of care to nurse practitioner, review of labs and imaging is 60 minutes. Living will/advanced directive/end of life care: Patient does have living will or advanced directive. His brother is power of claim attorney for health after discussion of benefits/risks procedures involved with full code, DNR CC arrest and DNR CC, the patient opted for full code. Patient doesn't want artificial life support including intubation, tube feed, ventilator and/chest compression, central venous catheter, vasopressor and DC shock if needed Total time spent in [id number] encounter in discussion of advanced directive 16 minutes. Charges/Coding Visit Charges Inpatient E&M: 77359 Init Hosp L3 Procedures Hospitalists Procedures: 11830 Advncd Care Plan 30 Min
[2021-11-25 17:34] VITALS: BMI 38.8
[2021-11-25 18:34] VITALS: BP 144/71; PULSE 92; RESP 16; TEMP 37.8; O2SAT 93
[2021-11-25] MEDS: Acetaminophen 325 MG Tablet 650 MG PO (18:44)
[2021-11-25 19:54] VITALS: PULSE 110
[2021-11-25] MEDS: Atorvastatin Calcium 80 MG Tablet PO (19:54)
[2021-11-25] MEDS: Metoprolol Tartrate 50 MG Tablet PO (19:54)
[2021-11-25] MEDS: Doxazosin 4 MG Tablet 8 MG PO (19:55)
[2021-11-25 20:06] VITALS: BP 152/76; PULSE 110; RESP 20; TEMP 37.4; O2SAT 91
--- NOTE | 2021-11-25 22:51 | PCS.PANDOC ---
PANDEMIC DOCUMENTATION INITIATED: Date: 11/25/2021 Time: 5224
[2021-11-25] MEDS: guaiFENesin 600 MG Tablet PO (23:38)
[2021-11-26] VITALS (15 sets, daily range): BP systolic 104–143; BP diastolic 56–84; PULSE 70–99; RESP 16–25; TEMP 36.6–37.4; O2SAT 86–97
[2021-11-26] MEDS: Acetaminophen 325 MG Tablet 650 MG PO (01:32)
[2021-11-26 04:38] LABS: Absolute Lymphocyte Count 0.83 X10^3/uL (0.83-4.51); Absolute Neutrophil Count 2.7 X10^3/uL (2.0-7.7); Basophil# 0.01 X10^3/uL; Basophil% 0.2 % (0-1); Eosinophil# 0.01 X10^3/uL; Eosinophils% 0.2 % (0-5); Hematocrit 33.9 % (40-54); Hemoglobin 11.3 g/dL (13.0-16.5); Lymphocyte # 0.83 X10^3/ul (0.83-4.51); Lymphocyte % 19.7 % (19-41); Mean Corp Hgb Conc 33.3 g/dL (32-36); Mean Corpuscular Hgb 28.9 pg (27.0-32.0); Mean Corpuscular Volume 86.7 fL (80-94); Mean Platelet Vol. 8.9 fl (6.2-12.0); Monocyte# 0.66 X10^3/uL; Monocyte% 15.6 % (0-10); NRBC Flagged by Analyzer 0 % (0-5); Neutrophil % 64.1 % (47-70); Platelet Count 106 K/mm3 (150-450); RBC Distribution Width CV 13.4 % (11.6-14.6); RBC Distribution Width SD 41.9 fl (35.1-43.9); Red Blood Count 3.91 M/mm3 (4.6-6.2); White Blood Count 4.2 K/mm3 (4.4-11.0)
[2021-11-26 04:52] LABS: International Normalized Ratio 2.2; Prothrombin Time (Protime)PT. 23.7 SECONDS (11.7-14.9)
[2021-11-26 05:04] LABS: Anion Gap 5 (5-15); BUN 17 mg/dL (7-18); Calcium,Total 8.5 mg/dL (8.5-10.1); Chloride 106 mmol/L (98-107); Creatinine, Serum 0.66 mg/dL (0.70-1.30); EST Glomerular Filtration Rate 126 mL/min (>60); Est Glom Filt Rate - Afr Amer 153 mL/min (>60); Estimated Creatinine Clearance 71.13 ml/min; Glucose 95 mg/dL (74-106); Potassium 3.3 mmol/L (3.5-5.1); Sodium Level 140 mmol/L (136-145)
[2021-11-26] MEDS: Losartan Potassium 100 MG Tablet PO (08:31)
[2021-11-26] MEDS: 0.9% Saline Lock 10 ML Syringe IV ×2 (08:31→22:12)
[2021-11-26] MEDS: LORazepam 2 MG/ML Syringe IV (08:31)
[2021-11-26] MEDS: Potassium Chloride Oral Tablet 20 MEQ PO ×2 (08:31→12:46)
[2021-11-26] MEDS: Metoprolol Tartrate 50 MG Tablet PO ×2 (08:31→22:08)
[2021-11-26] MEDS: Loratadine 10 MG Tablet PO (08:31)
[2021-11-26] MEDS: guaiFENesin 600 MG Tablet PO ×2 (08:33→22:09)
--- NOTE | 2021-11-26 09:00 | MRI_ITS ---
STUDY: MRI THORACIC SPINE WITHOUT CONTRAST REASON FOR EXAM: Male, 76 years old. ACUTE b/l leg weakness -- HX PRIOR SURGERY TECHNIQUE: Standardized fat and water weighted pulse sequences were obtained in the sagittal and axial planes. A COMPARISON: None. FINDINGS: Normal kyphosis of the thoracic spine. There is no substantial scoliosis. T1-2, T2-3, T3-4, T4-5, T5-6, T6-7, T7-8, T8-9, T9-10, T10-11, T11-12: There is mild/moderate multilevel disc space narrowing and endplate spondylosis. There is posterior transpedicular screw fusion. T7-T11. Normal visualized thoracic cord. MRI/Spine Thoracic (Routine) IMPRESSION: Mild/moderate multilevel degenerative changes. No demonstrated fractures. Electronically Signed: Christina Hernandez MD at 10:59 EST Tel , Service support ,
--- NOTE | 2021-11-26 09:00 | MRI_ITS ---
STUDY: MRI LUMBAR SPINE WITHOUT CONTRAST REASON FOR EXAM: Male, 76 years old. ACUTE b/l leg weakness, HX PROSTATE CA TECHNIQUE: Standardized fat and water weighted pulse sequences were obtained in the sagittal and axial planes. COMPARISON: None FINDINGS: Normal lumbar lordosis. There is no substantial scoliosis. Normal conus medullaris that terminates at the L1 L1-2: There is minimal disc space narrowing and endplate spondylosis. There is no significant disc herniation, central canal or foraminal stenosis L2-3: There is minimal disc space narrowing and endplate spondylosis. There is no significant disc herniation, central canal or foraminal stenosis. Mild facet arthropathy. L3-4: There is mild disc space narrowing and endplates spondylosis. Mild disc osteophyte complex and facet arthropathy with moderate central canal stenosis. Moderate right and moderate left foraminal stenosis. L4-5: There is severe fracture involving L4 waist with edema, consistent with acute fracture. There is preservation of the posterior endplates fat signal. There is minimal retropulsion of the superior-posterior endplate. Moderate disc osteophyte complex and facet arthropathy. Minimal grade 1 anterolisthesis. In combination findings result in severe central canal stenosis. Moderate right and moderate left foraminal stenosis. L5-S1: There is mild disc space narrowing and endplates spondylosis. Mild disc bulge and moderate facet arthropathy without significant central canal or foraminal stenosis. Minimal anterolisthesis. MRI/Spine Lumbar (Routine) IMPRESSION: Acute severe fracture at L4. Severe central canal stenosis. Moderate/severe multilevel degenerative changes. Electronically Signed: Christina Hernandez MD at 11:12 EST Tel , Service support ,
--- NOTE | 2021-11-26 11:00 | NURSING ---
pt returned from mri. pt attends changed.
--- NOTE | 2021-11-26 11:20 | CASEMGMT ---
RN CM Face to Face with patient for initial transition planning/care coordination assessment. RN CM introduced self and role at [facility]. Patient lying in bed, alert and oriented. Patient willing to participate in assessment and is able to answer all questions appropriately. Care providers, pharmacy, and demographics verified. Patient wishes to discharge home but is agreeable to SNF if needed. RN CM reviewed SNF agencies with patient and prefers TCU if needed. Patient states he has no further needs or concerns at this time. CM to follow for discharge planning needs that may arise. PCP: [facility] Specialists: Jaelyn, bevel polisher; Wanda, oncologist Preferred Pharmacy: [facility], [facility] retail at discharge. Insurance: [facility] Prescription Benefit: yes Living Will/HPOA: none LNOK: brother Living Arrangements: Patient lives alone in a second floor apartment with one flight of stairs with double railing to enter. Patient states he was independent at home prior to hospitalization Transportation: self, hired aide DME/HHC: Patient states he has shower chair, cane, walker, grab bars, and cpap at home. Patient has previously been to [facility] and [facility]. [facility] in the past. Disposition Plan: HHC vs SNF pending progress with therapy. Maureen MENENDEZ, RN, CM
--- NOTE | 2021-11-26 12:13 | CASEMGMT ---
Addendum entered by Nora Greenwood 11/26/21 14:24: Social Work There now may be a chance pt gets transferred. SW will speak w/pt when appropriate, if he does not get transferred will revisit pt going to TCU. SW made Melody in TCU aware. TYSHAWN Powers Addendum entered by Nora Greenwood 11/26/21 12:36: Social Work SW spoke w/Melody in TCU, she states pt has a medication called Xtandi that would need to be brought from home. SW attempted to speak w/pt, he is asleep. SW will try again in a short time. TYSHAWN Powers Original Note: Social Work Pt did tell CM if SNF needed he would want TCU. SW called TCU, referral made, waiting to hear back. TYSHAWN Powers
--- NOTE | 2021-11-26 13:18 | PCM.PN.HOSP ---
Documented by User: GRIFFIN Encarnacion 11/26/21 13:25 Subjective Subjective Patient seen and examined. Patient returned from MRI. Patient lying in bed no distress noted. Objective Data Objective Data Vital Signs: Vital Signs Temp Pulse Resp BP Pulse Ox 98.5 F 87 16 116/59 L 96 11/26/21 12:39 11/26/21 12:39 11/26/21 12:39 11/26/21 12:39 11/26/21 12:39 Oxygen Flow Rate (L/min) 2 Oxygen Delivery Method Nasal Cannula Weight: 286 lb 6.087 oz Body Mass Index (BMI) 38.8 Intake & Output: Intake and Output for Last 24 Hours 11/24/21 11/25/21 11/26/21 23:59 23:59 23:59 Intake Total 400 / 400 490 / 490 Output Total 550 / 550 Balance 400 / 400 -60 / -60 Lab / Micro Data Result Diagrams: 11/27/21 04:24 11/27/21 04:24 Labs: Laboratory Results - last 24 hr 11/25/21 13:05: Diff Path Review March11/25/21 13:05: PT 22.0 H, INR 2.0 11/25/21 13:05: Sodium 142, Potassium 3.9, Chloride 107, Carbon Dioxide 29.0, Anion Gap 6, BUN 22 H, Creatinine 0.76, Estim Creat Clear Calc 71.13, Est GFR (MDRD) Af Amer 129, Est GFR (MDRD) Non-Af 106, BUN/Creatinine Ratio 28.9 H, Glucose 99, Calcium 8.9 11/25/21 14:05: Urine Color Yellow, Urine Clarity Clear, Urine pH 7.0, Ur Specific [place] 1.010, Urine Protein Negative, Urine Glucose (UA) Normal, Urine Ketones Negative, Urine Occult Blood Negative, Urine Nitrite Negative, Urine Bilirubin Negative, Urine Urobilinogen 1 H, Ur Leukocyte Esterase Negative, Urine RBC 0 SEEN, Urine WBC 0 SEEN, Ur Squamous Epith Cells 0 SEEN, Urine Bacteria 0 SEEN, Urine Mucus 0 SEEN 11/26/21 03:51: WBC 4.2 L, RBC 3.91 L, Hgb 11.3 L, Hct 33.9 L, MCV 86.7, MCH 28.9, MCHC 33.3, RDW Std Deviation 41.9, RDW Coeff of Dick 13.4, Plt Count 106 L, MPV 8.9, Immature Gran % (Auto) 0.200, Neut % (Auto) 64.1, Lymph % (Auto) 19.7, [place] % (Auto) 15.6 H, Eos % (Auto) 0.2, Baso % (Auto) 0.2, Absolute Neuts (auto) 2.7, Absolute Lymphs (auto) 0.83, Nucleated RBC % 0 11/26/21 03:51: PT 23.7 H, INR 2.2 11/26/21 03:51: Sodium 140, Potassium 3.3 L, Chloride 106, Carbon Dioxide 29.0, Anion Gap 5, BUN 17, Creatinine 0.66 L, Estim Creat Clear Calc 71.13, Est GFR (MDRD) Af Amer 153, Est GFR (MDRD) Non-Af 126, BUN/Creatinine Ratio 26.0 H, Glucose 95, Calcium 8.5 Micro: Microbiology 11/25/21 12:47 Nasal Secretion SARS-CoV-2 Antigen (Rapid) - Final Radiography Diagnostic Testing: Radiology Impression Chest X-Ray 11/25/21 12:25 IMPRESSION: Prior CABG. Cardiomegaly. No acute abnormality is seen. Electronically Signed: Benjie Lieberman MD at 13:37 EST , Service support , Lumbar Spine MRI 11/26/21 09:00 IMPRESSION: Acute severe fracture at L4. Severe central canal stenosis. Moderate/severe multilevel degenerative changes. Electronically Signed: Christina Hernandez MD at 11:12 EST Tel , Service support , Thoracic Spine MRI 11/26/21 09:00 IMPRESSION: Mild/moderate multilevel degenerative changes. No demonstrated fractures. Electronically Signed: Christina Hernandez MD at 10:59 EST Tel , Service support , Physical Exam Const alert and no apparent distress General Appearance: cooperative Orientation / Consciousness: oriented to person, oriented to place and confused HEENT normocephalic and head/scalp atraumatic Eyes conjunctivae normal and no scleral icterus Neck supple General: trachea midline Lymph Lymphatic: no lymphadenopathy noted Resp normal respiratory effort, normal air movement and clear to auscultation bilaterally Cardio regular rate, regular rhythm, S1 normal heart sound and S2 normal heart sound GI normal to inspection, nondistended, normoactive bowel sounds, soft to palpation and non-tender Extremity normal capillary refill and no clubbing, cyanosis or edema General Extremity: no tenderness to palpation of joints or extremities Skin General Skin Exam: no breakdown and turgor normal Lesions: no lesions Rashes: no rashes Neuro no focal motor deficits and no sensory deficits noted Speech: speech normal Motor Exam: general weakness Psych cooperative Speech: normal speech Thought Process: confused Assessment & Plan Assessment/Plan (1) Generalized weakness: (2) Fracture of fourth lumbar vertebra: QUALIFIERS: Encounter type: initial encounter Fracture morphology: unspecified fracture morphology Fracture type: closed Qualified Code(s): S32.049A - Unspecified fracture of fourth lumbar vertebra, initial encounter for closed fracture (3) Unable to ambulate: PLAN: 1. Acute fracture of L4 vertebra -Dr. Rm consulted -Patient denies current pain 2. Generalized weakness -Likely secondary to #1 -PT and OT to eval and treat -Thoracic MRI shows mild to moderate degenerative changes 3. Atrial fibrillation -Continue current medication regimen -PT/INR daily 4. Hypertension -Continue home medication regimen -Vital signs per protocol, currently stable DVT prophylaxis-chronically anticoagulated This patient was seen by Tonya Patton NP-C under the supervision of Dr. Gunderson. 10 minutes spent in clinical coordination of patient's plan of care. Documented by User: Dr. Mirna Gunderson MD 11/27/21 09:13 Objective Data Lab / Micro Data Result Diagrams: 11/27/21 04:24 11/27/21 04:24 Charges/Coding Addendum Addendum: This patient was seen in conjunction with Hilario Patton NP. I have independently interviewed and examined the patient and reviewed pertinent historical, laboratory, and other data. I have reviewed her note and concur with her documentation 76-year-old male with past medical history of chronic back pain who comes in with progressive bilateral leg weakness and inability to walk. Patient follows up with neurosurgeon in [facility] and was due for back surgery about a year ago. He reports that worsening of mobility today before admission. He denied any incontinence of stool or urine. He had an MRI of the thoracic and lumbar spine that showed acute L4 fracture, severe central canal stenosis, moderate/severe multi level degenerative changes. Dr. Rm was consulted from admission. Recommended transfer to tertiary facility. Recommended starting patient on Decadron 20 mg IV x1 and then 10 mg every 6h. Discussed with patient. Nurse practitioner called Dr. Mcnair's office; patient has not been seen in the office for more than 1 year. Patient was accepted at the [facility]. Patient however declined the transfer and wanting to speak to his neurosurgeon. Patient also reportedly desaturated in the night. Was put on 2 L of oxygen. His admitting rapid COVID 19 antigen test was negative. COVID-19 PCR was positive. Vitals: Temp Pulse Resp BP Pulse Ox 98.5 F 87 16 116/59 L 96 Physical Exam: Gen: Comfortable, Obese CVS:HS I +II, regular, no murmurs RESP: Diminished at lung bases GI: BS present and normal, soft, nontender, no palpable organs EXT:No edema ASSESSMENT: 1. Acute severe L4 fracture/severe spinal stenosis/Moderate DJD of spine 2. Acute hypoxic respiratory insufficiency secondary to Acute COVID-19 pneumonia 3. CAD s/p CABG 4. Chronic A. fib 5. Hypertension Hyperlipidemia Plan: High dose steroid Enhanced COVID precautions Oxygen therapy PRN breathing treatments Time spent coordinating patient's care, discussing with subspecialty and nursin minutes
[2021-11-26 14:02] LABS: Pathologist Review Reviewed
--- NOTE | 2021-11-26 14:28 | CASEMGMT ---
Tertiary facilities in-network with patient's insurance: [facility], [facility] [place], [facility], , [facility], [facility], [facility].
[2021-11-26] MEDS: dexAMETHasone 20 MG/5 ML Vial IV (15:42)
--- NOTE | 2021-11-26 18:05 | NURSING ---
Pt to room from [facility] after testing positive for COVID. patient is currently 96% on 3L N/C. pt states he ate small amount of dinner. LS dim. patient denies much pain at rest. aware to call for needs.
[2021-11-26] MEDS: dexAMETHasone 10 MG/ML Vial IV (22:08)
[2021-11-26] MEDS: Atorvastatin Calcium 80 MG Tablet PO (22:08)
[2021-11-26] MEDS: Doxazosin 4 MG Tablet 8 MG PO (22:08)
[2021-11-26] MEDS: Nystatin Powder 15gm Bottle 1 APPLIC TOPICAL (22:09)
[2021-11-26] MEDS: ENZALUTAMIDE 40 MG CAPSULE 160 MG PO (22:11)
[2021-11-27] VITALS (10 sets, daily range): BP systolic 110–140; BP diastolic 52–83; PULSE 77–87; RESP 18; TEMP 36.5–36.9; O2SAT 93–96
[2021-11-27] MEDS: dexAMETHasone 10 MG/ML Vial IV ×4 (02:51→20:53)
[2021-11-27] MEDS: 0.9% Saline Lock 10 ML Syringe IV ×2 (02:52→20:58)
[2021-11-27] MEDS: Loperamide 2 MG Capsule PO (05:27)
[2021-11-27 05:40] LABS: Absolute Neutrophil Count 4.2 X10^3/uL (2.0-7.7); Hematocrit 36.2 % (40-54); Lymphocyte % 11.9 % (19-41); Mean Corp Hgb Conc 33.1 g/dL (32-36); Mean Corpuscular Hgb 28.6 pg (27.0-32.0); Mean Corpuscular Volume 86.2 fL (80-94); Mean Platelet Vol. 8.9 fl (6.2-12.0); Monocyte# 0.23 X10^3/uL; Monocyte% 4.6 % (0-10); NRBC Flagged by Analyzer 0 % (0-5); Neutrophil % 83.3 % (47-70); POSITIVE DIFFERENTIAL YES; Platelet Count 114 K/mm3 (150-450); RBC Distribution Width SD 40.7 fl (35.1-43.9)
[2021-11-27 05:41] LABS: Differential Indicated SCAN CRITERIA MET
[2021-11-27 06:01] LABS: Differential Comment SCANNED
[2021-11-27 06:04] LABS: ALB/GLOB Ratio 0.7 RATIO (0.9-2.4); AST(SGOT) 42 U/L (15-37); Alanine Aminotransfer ALT/SGPT 24 U/L (16-61); Albumin, Serum 2.9 g/dL (3.2-5.0); Alkaline Phosphatase 101 U/L (45-117); Anion Gap 5 (5-15); BUN 17 mg/dL (7-18); BUN/Creat Ratio 30.4 RATIO (10-20); Calcium,Total 8.8 mg/dL (8.5-10.1); Chloride 108 mmol/L (98-107); Creatinine, Serum 0.56 mg/dL (0.70-1.30); EST Glomerular Filtration Rate 152 mL/min (>60); Est Glom Filt Rate - Afr Amer 183 mL/min (>60); Estimated Creatinine Clearance 71.13 ml/min; Globulin 3.9 g/dL (2.2-4.2); Glucose 124 mg/dL (74-106); Magnesium 2.2 mg/dL (1.6-2.6); Potassium 3.6 mmol/L (3.5-5.1); Protein, Total 6.8 g/dL (6.4-8.2); Sodium Level 140 mmol/L (136-145)
--- NOTE | 2021-11-27 09:42 | CASEMGMT ---
Social Work Note SW updated that pt is agreeable to SNF - [facility]. SW reviewed chart. Pt is now COVID+. Pt is not able to go to TCU. RAHEEM placed a call to Filiberto at [facility] and left message to confirm if they will take COVID+ pt's 10 days from symptoms or 10 days from positive test. Of note, pt tested positive 11/26/2021 but symptoms apparently started Thursday. SW waiting for call back from [facility]. RAHEEM spoke with Danisha at [facility] who states they do accept pt's insurance, willing to review referral. SW to discuss with pt. Plan: SNF pending acceptance and pre-cert Maureen Hernández SUTURE POLISHER, CARBURETOR EXPERT
[2021-11-27] MEDS: Furosemide 40 MG/4 ML Vial IV (10:18)
[2021-11-27] MEDS: Potassium Chloride Oral Tablet 20 MEQ PO (10:18)
[2021-11-27] MEDS: Metoprolol Tartrate 50 MG Tablet PO ×2 (10:19→20:56)
[2021-11-27] MEDS: Loratadine 10 MG Tablet PO (10:19)
[2021-11-27] MEDS: Losartan Potassium 100 MG Tablet PO (10:19)
[2021-11-27] MEDS: guaiFENesin 600 MG Tablet PO ×2 (10:20→20:55)
[2021-11-27] MEDS: Nystatin Powder 15gm Bottle 1 APPLIC TOPICAL ×2 (10:20→20:55)
--- NOTE | 2021-11-27 11:10 | PN.HOSP_ITS ---
Documented by User: Tonya Patton NP-C 11/27/21 11:16 Subjective Subjective Patient seen and examined. Patient lying in bed oxygen on, no distress noted. Discussed with patient his wishes regarding diagnosis of L4 fracture as well as diagnosis of COVID-19. Patient does not want transfer to a tertiary care facility at this time for L4 fracture and refused transfer to overnight. Patient expresses wishes to follow-up with his spinal surgeon outpatient. Objective Data Objective Data Vital Signs: Vital Signs Temp Pulse Resp BP Pulse Ox 97.9 F 87 18 132/59 H 95 11/27/21 09:59 11/27/21 10:19 11/27/21 09:59 11/27/21 09:59 11/27/21 09:59 Oxygen Flow Rate (L/min) 2 Oxygen Delivery Method Nasal Cannula Weight: 286 lb 6.087 oz Body Mass Index (BMI) 38.8 Intake & Output: Intake and Output for Last 24 Hours 11/25/21 11/26/21 11/27/21 23:59 23:59 23:59 Intake Total 400 / 400 610 / 610 Output Total 600 / 600 Balance 400 / 400 Lab / Micro Data Result Diagrams: 11/27/21 04:24 11/27/21 04:24 Labs: Laboratory Results - last 24 hr 11/25/21 13:05: Diff Path Review Reviewed 11/26/21 13:11: COVID-19 (CRYSTAL) Detected 11/27/21 04:24: WBC 5.0, RBC 4.20 L, Hgb 12.0 L, Hct 36.2 L, MCV 86.2, MCH 28.6, MCHC 33.1, RDW Std Deviation 40.7, RDW Coeff of Dick 13.0, Plt Count 114 L, MPV 8.9, Immature Gran % (Auto) 0.200, Neut % (Auto) 83.3 H, Lymph % (Auto) 11.9 L, [place] % (Auto) 4.6, Eos % (Auto) 0.0, Baso % (Auto) 0.0, Absolute Neuts (auto) 4.2, Absolute Lymphs (auto) 0.60 L, Nucleated RBC % 0, Differential Comment SCANNED 11/27/21 04:24: Sodium 140, Potassium 3.6, Chloride 108 H, Carbon Dioxide 27.0, Anion Gap 5, BUN 17, Creatinine 0.56 L, Estim Creat Clear Calc 71.13, Est GFR (MDRD) Af Amer 183, Est GFR (MDRD) Non-Af 152, BUN/Creatinine Ratio 30.4 H, Glucose 124 H, Calcium 8.8, Magnesium 2.2, Total Bilirubin 1.30 H, AST 42 H, ALT 24, Alkaline Phosphatase 101, Total Protein 6.8, Albumin 2.9 L, Globulin 3.9, Albumin/Globulin Ratio 0.7 L Micro: Microbiology 11/25/21 13:35 Blood Culture (Wb) - No Site/Description Given Blood Culture - Preliminary No growth in 48 hours. 11/25/21 13:05 Blood Culture (Wb) - Anticubital Left Blood Culture - Preliminary No growth in 48 hours. 11/26/21 13:15 Stool Enteric Bacteriology - Final 11/26/21 13:15 Stool C. difficile DNA Amplification - Final 11/25/21 12:47 Nasal Secretion SARS-CoV-2 Antigen (Rapid) - Final Radiography Diagnostic Testing: Radiology Impression Lumbar Spine MRI 11/26/21 09:00 IMPRESSION: Acute severe fracture at L4. Severe central canal stenosis. Moderate/severe multilevel degenerative changes. Electronically Signed: Christina Hernandez MD at 11:12 EST Tel , Service support , Physical Exam Const alert and no apparent distress General Appearance: cooperative Orientation / Consciousness: oriented to person, oriented to place and confused HEENT normocephalic and head/scalp atraumatic Eyes conjunctivae normal and no scleral icterus Neck supple General: trachea midline Lymph Lymphatic: no lymphadenopathy noted Resp normal respiratory effort and normal air movement Auscultation: wheezes Cardio regular rate, regular rhythm, S1 normal heart sound and S2 normal heart sound GI normal to inspection, nondistended, normoactive bowel sounds, soft to palpation and non-tender Extremity normal capillary refill and no clubbing, cyanosis or edema General Extremity: no tenderness to palpation of joints or extremities Skin General Skin Exam: no breakdown and turgor normal Lesions: no lesions Rashes: no rashes Neuro no focal motor deficits and no sensory deficits noted Speech: speech normal Motor Exam: general weakness Psych cooperative and affect normal Speech: normal speech Thought Process: confused Assessment & Plan Assessment/Plan (1) Generalized weakness: (2) Fracture of fourth lumbar vertebra: QUALIFIERS: Encounter type: initial encounter Fracture morphology: unspecified fracture morphology Fracture type: closed Qualified Code(s): S32.049A - Unspecified fracture of fourth lumbar vertebra, initial encounter for closed fracture (3) Unable to ambulate: PLAN: 1. Acute fracture of L4 vertebra -Dr. Rm consulted, recommended transfer to tertiary care facility however patient refuses transfer at this time. -Patient denies current pain -PT and OT following 2. Generalized weakness -Likely secondary to #1 -PT and OT to eval and treat -Thoracic MRI shows mild to moderate degenerative changes 3. COVID-19 -Rapid antigen test on 11/25/2021 negative, patient continued to be symptomatic with sore throat and cough as well as new onset diarrhea -PCR + 11/26/2021, patient on day 4 of symptoms -Patient currently requiring 2 L nasal cannula at rest -Patient on dexamethasone for L4 fracture, will initiate remdesivir 4. Atrial fibrillation -Continue current medication regimen -PT/INR daily 5. Hypertension -Continue home medication regimen -Vital signs per protocol, currently stable DVT prophylaxis-chronically anticoagulated This patient was seen by Tonya Patton NP-C under the supervision of Dr. Gunderson. 10 minutes spent in clinical coordination of patient's plan of care. Documented by User: Dr. Mirna Gunderson MD 11/27/21 16:32 Objective Data Lab / Micro Data Result Diagrams: 11/27/21 04:24 11/27/21 04:24 Charges/Coding Addendum Addendum: This patient was seen in conjunction with Hilario Patton NP. I have independently interviewed and examined the patient and reviewed pertinent historical, laboratory, and other data. I have reviewed her note and concur with her documentation Patient was seen and examined. Currently on 2 L of oxygen. He declined going to the [facility]. He stated that he prefers going for jail facility for some rehab and then going to surgery stronger than he is now. He denies any fever or chills. Vitals: Temp Pulse Resp BP Pulse Ox 97.9 F 87 18 132/59 H 95 Physical Exam: Gen: Comfortable, Obese CVS:HS I +II, regular, no murmurs RESP: Diminished at lung bases GI: BS present and normal, soft, nontender, no palpable organs EXT:No edema ASSESSMENT: 1. Acute severe L4 fracture/severe spinal stenosis/Moderate DJD of spine 2. Acute hypoxic respiratory insufficiency secondary to Acute COVID-19 pneumonia 3. CAD s/p CABG 4. Chronic A. fib 5. Hypertension Hyperlipidemia Plan: Continue with high-dose steroids for now Enhanced COVID precautions Oxygen therapy PRN breathing treatments Trial of Lasix 40 mg IV x1 Time spent coordinating patient's care, discussing with nursing and patient at the bedside: 20 minutes Visit Charges Inpatient E&M: 97637 Subs Hosp L2
[2021-11-27 12:03] LABS: Alkaline Phosphatase 98 U/L (45-117)
--- NOTE | 2021-11-27 12:29 | CASEMGMT ---
Social Work Note SW placed a call to pt to discuss SNF placement. SW informed pt that [facility] will only accept pt's that are 10 days post Symptoms/COVID test. SW informed pt that there are no SNF in [facility] that accept COVID+ pt's before 10 days post Symptoms/COVID test and pt's insurance. SW informed pt that the closest SNF that is taking COVID+ pt's and pt's insurance is [facility]. Pt agreeable to referral being sent to [facility]. SW faxed referral to [facility]. Plan: SNF pending acceptance and pre-cert Maureen Hernández IRRIGATION FLUME LAYER, CHIEF OF SERVICE
--- NOTE | 2021-11-27 16:10 | CASEMGMT ---
Social Work Note RAHEEM placed a call to [facility] and spoke with Danisha. Danisha states their physician is reviewing it but would like to review referral again when pt is closer to being medically ready. SW informed Danisha that pt will likely be ready in a couple days. Danisha states Thursday morning this worker can call her to discuss referral. RAHEEM will talk with pt tomorrow about additional SNF options. SW to continue to follow. Plan: SNF pending acceptance and pre-cert Maureen Hernández TIRE CLASSIFIER, CONFECTIONERY LABORATORY MANAGER
[2021-11-27] MEDS: Doxazosin 4 MG Tablet 8 MG PO (20:54)
[2021-11-27] MEDS: Atorvastatin Calcium 80 MG Tablet PO (20:55)
[2021-11-27] MEDS: ENZALUTAMIDE 40 MG CAPSULE 160 MG PO (20:56)
[2021-11-28] VITALS (7 sets, daily range): BP systolic 124–155; BP diastolic 68–84; PULSE 61–93; RESP 18; TEMP 36.5–36.9; O2SAT 94–96
[2021-11-28] MEDS: 0.9% Saline Lock 10 ML Syringe IV ×2 (03:25→10:00)
[2021-11-28] MEDS: dexAMETHasone 10 MG/ML Vial IV ×2 (03:25→10:21)
[2021-11-28 05:54] LABS: Absolute Lymphocyte Count 0.78 X10^3/uL (0.83-4.51); Hematocrit 37.7 % (40-54); Hemoglobin 12.6 g/dL (13.0-16.5); Lymphocyte # 0.78 X10^3/ul (0.83-4.51); Lymphocyte % 8.6 % (19-41); Mean Corp Hgb Conc 33.4 g/dL (32-36); Mean Corpuscular Hgb 28.4 pg (27.0-32.0); Mean Corpuscular Volume 84.9 fL (80-94); Monocyte# 0.32 X10^3/uL; Monocyte% 3.5 % (0-10); NRBC Flagged by Analyzer 0 % (0-5); Neutrophil % 87.7 % (47-70); Platelet Count 142 K/mm3 (150-450); RBC Distribution Width CV 12.8 % (11.6-14.6); RBC Distribution Width SD 39.6 fl (35.1-43.9); Red Blood Count 4.44 M/mm3 (4.6-6.2); White Blood Count 9.1 K/mm3 (4.4-11.0)
[2021-11-28 06:22] LABS: ALB/GLOB Ratio 0.7 RATIO (0.9-2.4); AST(SGOT) 34 U/L (15-37); Alanine Aminotransfer ALT/SGPT 22 U/L (16-61); Albumin, Serum 2.9 g/dL (3.2-5.0); Alkaline Phosphatase 104 U/L (45-117); Anion Gap 3 (5-15); BUN 27 mg/dL (7-18); BUN/Creat Ratio 46.4 RATIO (10-20); Chloride 108 mmol/L (98-107); Creatinine, Serum 0.58 mg/dL (0.70-1.30); EST Glomerular Filtration Rate 145 mL/min (>60); Est Glom Filt Rate - Afr Amer 175 mL/min (>60); Estimated Creatinine Clearance 71.13 ml/min; Globulin 3.9 g/dL (2.2-4.2); Glucose 132 mg/dL (74-106); Potassium 3.7 mmol/L (3.5-5.1); Protein, Total 6.8 g/dL (6.4-8.2); Sodium Level 141 mmol/L (136-145)
--- NOTE | 2021-11-28 07:34 | PCS.PANDOC ---
PANDEMIC DOCUMENTATION INITIATED: Date: 06/24/2021 Time: 190
[2021-11-28] MEDS: Potassium Chloride Oral Tablet 20 MEQ PO (09:59)
[2021-11-28] MEDS: Losartan Potassium 100 MG Tablet PO ×2 (10:00)
[2021-11-28] MEDS: Loratadine 10 MG Tablet PO (10:00)
[2021-11-28] MEDS: guaiFENesin 600 MG Tablet PO ×2 (10:00→21:03)
[2021-11-28] MEDS: Metoprolol Tartrate 50 MG Tablet PO ×2 (10:00→21:02)
[2021-11-28] MEDS: Nystatin Powder 15gm Bottle 1 APPLIC TOPICAL ×2 (10:21→21:04)
--- NOTE | 2021-11-28 13:02 | PCM.PN.HOSP ---
Documented by User: Александр MERCADO 11/28/21 13:16 Subjective Subjective Patient is a 76-year-old male comfortably resting in bed, alert and orient x3. Patient denies development of any new symptoms overnight. Does not appear in acute distress. Objective Data Objective Data Vital Signs: Vital Signs Temp Pulse Resp BP Pulse Ox 98.5 F 87 18 124/68 H 95 11/28/21 10:11 11/28/21 10:11 11/28/21 10:11 11/28/21 10:11 11/28/21 11:59 Oxygen Flow Rate (L/min) 2 Oxygen Delivery Method Room Air Weight: 286 lb 6.087 oz Body Mass Index (BMI) 38.8 Intake & Output: Intake and Output for Last 24 Hours 11/26/21 11/27/21 11/28/21 23:59 23:59 23:59 Intake Total 610 / 610 1050 / 1050 Output Total 600 / 600 Balance 1050 / 1050 Lab / Micro Data Result Diagrams: 11/28/21 05:10 11/28/21 05:10 Labs: Laboratory Results - last 24 hr 11/28/21 05:10: WBC 9.1, RBC 4.44 L, Hgb 12.6 L, Hct 37.7 L, MCV 84.9, MCH 28.4, MCHC 33.4, RDW Std Deviation 39.6, RDW Coeff of Dick 12.8, Plt Count 142 L, MPV 9.0, Immature Gran % (Auto) 0.200, Neut % (Auto) 87.7 H, Lymph % (Auto) 8.6 L, [place] % (Auto) 3.5, Eos % (Auto) 0.0, Baso % (Auto) 0.0, Absolute Neuts (auto) 8.0 H, Absolute Lymphs (auto) 0.78 L, Nucleated RBC % 0 11/28/21 05:10: Sodium 141, Potassium 3.7, Chloride 108 H, Carbon Dioxide 30.0, Anion Gap 3 L, BUN 27 H, Creatinine 0.58 L, Estim Creat Clear Calc 71.13, Est GFR (MDRD) Af Amer 175, Est GFR (MDRD) Non-Af 145, BUN/Creatinine Ratio 46.4 H, Glucose 132 H, Calcium 9.0, Total Bilirubin 1.00, AST 34, ALT 22, Alkaline Phosphatase 104, Total Protein 6.8, Albumin 2.9 L, Globulin 3.9, Albumin/Globulin Ratio 0.7 L Micro: Microbiology 11/25/21 13:35 Blood Culture (Wb) - No Site/Description Given Blood Culture - Preliminary No growth in 48 hours. 11/25/21 13:05 Blood Culture (Wb) - Anticubital Left Blood Culture - Preliminary No growth in 48 hours. 11/26/21 13:15 Stool Enteric Bacteriology - Final 11/26/21 13:15 Stool C. difficile DNA Amplification - Final 11/25/21 12:47 Nasal Secretion SARS-CoV-2 Antigen (Rapid) - Final Physical Exam Const alert, oriented x3 and no apparent distress HEENT head/scalp atraumatic and moist oral mucous membranes Head and Scalp: normocephalic Eyes PERRL, EOMs intact bilaterally and conjunctivae normal Neck no lymphadenopathy, supple and no JVD Resp normal respiratory effort, no retractions, no use of accessory muscles and clear to auscultation bilaterally Cardio regular rate, regular rhythm, no murmurs and no JVD GI normal to inspection, nondistended, normoactive bowel sounds, soft to palpation and non-tender Extremity normal to inspection, full ROM and no clubbing, cyanosis or edema Skin no rashes or lesions noted, no wounds and skin turgor normal Neuro CN's II-XII intact bilaterally Psych affect normal Assessment & Plan Assessment/Plan (1) Fracture of fourth lumbar vertebra: QUALIFIERS: Encounter type: initial encounter Fracture morphology: unspecified fracture morphology Fracture type: closed Qualified Code(s): S32.049A - Unspecified fracture of fourth lumbar vertebra, initial encounter for closed fracture (2) Generalized weakness: (3) Unable to ambulate: PLAN: Day 3 Discharge planning: Current plan is for patient to go to SNF when medically ready. 1) acute fracture of L4 vertebra Dr. Rm consulted, recommended transfer to tertiary care facility however patient refuses transfer at this time. Patient reports that pain is currently controlled. 2) generalized weakness MRI demonstrated moderate degenerative change of the thoracic spine, likely related to #1. PT/OT eval ordered. 3) COVID-19 PCR was positive on 11/26, ordered after 4 days of sore throat with cough and diarrhea. Currently satting 95% on room air. Continue Decadron and remdesivir. 4) atrial fibrillation Patient is rate controlled on metoprolol and is anticoagulated on warfarin. Continue home regimen. 5) HTN Continue home BP regimen. DVT prophylaxis - warfarin Patient seen by Александр Bhakta PA-C, under the supervision of Dr. Gunderson. Time spend on pateint care: 9 minutes. Documented by User: Dr. Mirna Gunderson MD 11/28/21 16:29 Objective Data Lab / Micro Data Result Diagrams: 11/28/21 05:10 11/28/21 05:10 Charges/Coding Addendum Addendum: This patient was seen in conjunction with JESS Chavez. I have independently interviewed and examined the patient and reviewed pertinent historical, laboratory, and other data. I have reviewed her note and concur with her documentation Patient was seen and examined. He denied any new complaints. He is off oxygen. Denies any fever or chills Vitals: Temp Pulse Resp BP Pulse Ox 98.5 F 87 18 124/68 H 95 Physical Exam: Gen: Comfortable, Obese CVS:HS I +II, regular, no murmurs RESP: Diminished at lung bases GI: BS present and normal, soft, nontender, no palpable organs EXT:No edema ASSESSMENT: 1. Acute severe L4 fracture/severe spinal stenosis/moderate DJD of spine 2. Acute hypoxic respiratory insufficiency secondary to Acute COVID-19 pneumonia 3. CAD s/p CABG 4. Chronic A. fib 5. Hypertension 6. Hyperlipidemia Plan: Continue with dexamethasone 6mg daily Continue to encourage use of IS PRN breathing treatments Continue on Remdesivir IV Time spent coordinating patient's care, discussing with nursing and patient at the bedside: 20 minutes Visit Charges Inpatient E&M: 35108 Subs Hosp L2
--- NOTE | 2021-11-28 17:15 | CASEMGMT ---
Social Work Note Pt is medically ready for discharge once SNF can be confirmed. RAHEEM placed a call to [facility] and updated staff. [facility] requested updated clinicals. SW faxed updated clinicals. RAHEEM also called additional SNF to inquire who accepts pt's insurance and COVID+ pt's. The following SNF accept pt's insurance and COVID+ pt's. 1. [facility] in [place] 2. [facility] in [place] 3. [facility] in [place]. RAHEEM attempted to call pt to update on additional SNF, no answer. RAHEEM will meet with pt tomorrow to get additional choices for SNF in the event [facility] cannot accept pt. Plan: SNF pending acceptance and pre-cert Maureen Hernández MANUFACTURING QUALITY TECHNICIAN, DOOR TO DOOR SALESPERSON
[2021-11-28] MEDS: dexAMETHasone 4 MG Tablet 6 MG PO (17:58)
[2021-11-28] MEDS: Acetaminophen 325 MG Tablet 650 MG PO (21:01)
[2021-11-28] MEDS: Phytonadione (Vit K1) 5 MG TABLET PO (21:02)
[2021-11-28] MEDS: Doxazosin 4 MG Tablet 8 MG PO (21:03)
[2021-11-28] MEDS: Atorvastatin Calcium 80 MG Tablet PO (21:03)
[2021-11-28] MEDS: ENZALUTAMIDE 40 MG CAPSULE 160 MG PO (21:04)
[2021-11-29] VITALS (8 sets, daily range): BP systolic 126–169; BP diastolic 77–96; PULSE 67–89; RESP 16–18; TEMP 36.6–36.9; O2SAT 96–98
[2021-11-29] MEDS: dexAMETHasone 4 MG Tablet 6 MG PO ×5 (00:06→23:55)
[2021-11-29 07:50] LABS: Absolute Lymphocyte Count 0.97 X10^3/uL (0.83-4.51); Basophil# 0.01 X10^3/uL; Basophil% 0.1 % (0-1); Hemoglobin 12.7 g/dL (13.0-16.5); Lymphocyte # 0.97 X10^3/ul (0.83-4.51); Lymphocyte % 11.5 % (19-41); Mean Corp Hgb Conc 33.4 g/dL (32-36); Mean Corpuscular Hgb 28.5 pg (27.0-32.0); Mean Corpuscular Volume 85.4 fL (80-94); Mean Platelet Vol. 9.3 fl (6.2-12.0); Monocyte# 0.42 X10^3/uL; NRBC Flagged by Analyzer 0 % (0-5); Neutrophil # 7.01 X10^3/uL (2.7-7.7); Neutrophil % 83.2 % (47-70); Platelet Count 143 K/mm3 (150-450); RBC Distribution Width SD 40.8 fl (35.1-43.9); Red Blood Count 4.45 M/mm3 (4.6-6.2); White Blood Count 8.4 K/mm3 (4.4-11.0)
[2021-11-29 08:22] LABS: ALB/GLOB Ratio 0.8 RATIO (0.9-2.4); AST(SGOT) 25 U/L (15-37); Alanine Aminotransfer ALT/SGPT 18 U/L (16-61); Albumin, Serum 2.9 g/dL (3.2-5.0); Alkaline Phosphatase 96 U/L (45-117); Anion Gap 5 (5-15); BUN 31 mg/dL (7-18); BUN/Creat Ratio 52.4 RATIO (10-20); Calcium,Total 8.9 mg/dL (8.5-10.1); Chloride 109 mmol/L (98-107); Creatinine, Serum 0.59 mg/dL (0.70-1.30); EST Glomerular Filtration Rate 142 mL/min (>60); Est Glom Filt Rate - Afr Amer 172 mL/min (>60); Estimated Creatinine Clearance 71.13 ml/min; Globulin 3.8 g/dL (2.2-4.2); Glucose 107 mg/dL (74-106); Potassium 3.8 mmol/L (3.5-5.1); Protein, Total 6.7 g/dL (6.4-8.2); Sodium Level 143 mmol/L (136-145)
[2021-11-29 08:36] LABS: International Normalized Ratio 2.1; Prothrombin Time (Protime)PT. 22.4 SECONDS (11.7-14.9)
--- NOTE | 2021-11-29 08:43 | CASEMGMT ---
Social Work Note RAHEEM received message from Karo at [facility] stating they will continue to review referral as pt becomes medically stable. Karo states that it looks pt's heart rate was in the 160s the other day. Karo also states that they cannot accept pt until his last dose of Remdesivir is given. RAHEEM reviewed chart. Pt's per PT on 11/27/2021, pt's heart rate was 167 but quickly recovered to 120. Pt's Remdesivir will be completed 12/01/2021. RAHEEM will call [facility] again today. Plan: SNF pending acceptance and pre-cert Maureen Hernández YARN PACKER, PAVING INSPECTOR
--- NOTE | 2021-11-29 11:41 | PCM.PN.HOSP ---
Documented by User: Александр MERCADO 11/29/21 11:53 Subjective Subjective Patient is a 76-year-old male comfortably resting in bed, alert & oriented x3. Patient denies development of any new symptoms overnight. Does not appear in acute distress. Objective Data Objective Data Vital Signs: Vital Signs Temp Pulse Resp BP Pulse Ox 98.2 F 77 18 128/77 H 98 11/29/21 08:30 11/29/21 08:30 11/29/21 08:30 11/29/21 08:30 11/29/21 10:37 Oxygen Flow Rate (L/min) 2 Oxygen Delivery Method Room Air Weight: 286 lb 6.087 oz Body Mass Index (BMI) 38.8 Intake & Output: Intake and Output for Last 24 Hours 11/27/21 11/28/21 11/29/21 23:59 23:59 23:59 Intake Total 1050 / 1050 750 / 750 Output Total 350 / 350 300 / 300 Balance 1050 / 1050 400 / 400 -300 / -300 Lab / Micro Data Result Diagrams: 11/29/21 06:44 11/29/21 06:44 Labs: Laboratory Results - last 24 hr 11/28/21 17:15: PT 86.0 H, INR 11.0 H* 11/29/21 06:44: WBC 8.4, RBC 4.45 L, Hgb 12.7 L, Hct 38.0 L, MCV 85.4, MCH 28.5, MCHC 33.4, RDW Std Deviation 40.8, RDW Coeff of Dick 13.0, Plt Count 143 L, MPV 9.3, Immature Gran % (Auto) 0.200, Neut % (Auto) 83.2 H, Lymph % (Auto) 11.5 L, [place] % (Auto) 5.0, Eos % (Auto) 0.0, Baso % (Auto) 0.1, Absolute Neuts (auto) 7.0, Absolute Lymphs (auto) 0.97, Nucleated RBC % 0 11/29/21 06:44: Sodium 143, Potassium 3.8, Chloride 109 H, Carbon Dioxide 29.0, Anion Gap 5, BUN 31 H, Creatinine 0.59 L, Estim Creat Clear Calc 71.13, Est GFR (MDRD) Af Amer 172, Est GFR (MDRD) Non-Af 142, BUN/Creatinine Ratio 52.4 H, Glucose 107 H, Calcium 8.9, Total Bilirubin 1.00, AST 25, ALT 18, Alkaline Phosphatase 96, Total Protein 6.7, Albumin 2.9 L, Globulin 3.8, Albumin/Globulin Ratio 0.8 L 11/29/21 06:44: PT 22.4 H, INR 2.1 Micro: Microbiology 11/25/21 13:35 Blood Culture (Wb) - No Site/Description Given Blood Culture - Preliminary No growth in 48 hours. 11/25/21 13:05 Blood Culture (Wb) - Anticubital Left Blood Culture - Preliminary No growth in 48 hours. 11/26/21 13:15 Stool Enteric Bacteriology - Final 11/26/21 13:15 Stool C. difficile DNA Amplification - Final 11/25/21 12:47 Nasal Secretion SARS-CoV-2 Antigen (Rapid) - Final Physical Exam Const alert, oriented x3 and no apparent distress HEENT head/scalp atraumatic and moist oral mucous membranes Head and Scalp: normocephalic Eyes PERRL, EOMs intact bilaterally and conjunctivae normal Neck no lymphadenopathy, supple and no JVD Resp normal respiratory effort, no retractions and no use of accessory muscles Cardio regular rate, regular rhythm and no JVD GI normal to inspection, nondistended, normoactive bowel sounds, soft to palpation and non-tender Extremity normal to inspection, full ROM and no clubbing, cyanosis or edema Skin no rashes or lesions noted, no wounds and skin turgor normal Neuro CN's II-XII intact bilaterally Psych affect normal Assessment & Plan Assessment/Plan (1) Fracture of fourth lumbar vertebra: QUALIFIERS: Encounter type: initial encounter Fracture morphology: unspecified fracture morphology Fracture type: closed Qualified Code(s): S32.049A - Unspecified fracture of fourth lumbar vertebra, initial encounter for closed fracture (2) Generalized weakness: (3) Unable to ambulate: PLAN: Day 4 Discharge planning: To discharge on Thursday12/01/2021 to [facility] upon completion of Remdesevir infusion. 1) acute fracture of L4 vertebra Dr. Rm consulted, recommended transfer to tertiary care facility however patient refuses transfer at this time. Patient reports that pain is currently controlled. 2) generalized weakness MRI demonstrated moderate degenerative change of the thoracic spine, likely related to #1. To discharge to [facility]. 3) COVID-19 PCR was positive on 11/26, ordered after 4 days of sore throat with cough and diarrhea. Currently satting 95% on room air. Continue Decadron and remdesivir, remdesivir to be complete on 12/01 as above. 4) Supratherapeutic INR Resolved, INR currently 3.1. INR on 11/28 was 11.0, Vitamin K subsequently ordered. Will resume home warfarin and continue to monitor PT/INR. 4) atrial fibrillation Patient is rate controlled on metoprolol and is anticoagulated on warfarin. Continue home regimen. 5) HTN Continue home BP regimen. DVT prophylaxis - warfarin Patient seen by Александр Bhakta PA-C, under the supervision of Dr. Gunderson. Time spend on pateint care: 8 minutes. Documented by User: Dr. Mirna Gunderson MD 11/29/21 12:34 Objective Data Lab / Micro Data Result Diagrams: 11/29/21 06:44 11/29/21 06:44 Charges/Coding Addendum Addendum: This patient was seen in conjunction with JESS Chavez. I have independently interviewed and examined the patient and reviewed pertinent historical, laboratory, and other data. I have reviewed her note and concur with her documentation Patient was seen and examined. He denied any new complaints. He is off oxygen. Denies any fever or chills Discussed With orthopedic surgery, who did not recommend strenuous back exercises due to new acute L4 fracture. Discharge planning ongoing for intermediate facility Vitals: Temp Pulse Resp BP Pulse Ox 98.2 F 77 18 128/77 H 98 Physical Exam: Gen: Comfortable, Obese CVS:HS I +II, regular, no murmurs RESP: Diminished at lung bases GI: BS present and normal, soft, nontender, no palpable organs EXT:No edema ASSESSMENT: 1. Acute severe L4 fracture/severe spinal stenosis/moderate DJD of spine 2. Acute hypoxic respiratory insufficiency secondary to Acute COVID-19 pneumonia 3. CAD s/p CABG 4. Chronic A. fib 5. Hypertension 6. Hyperlipidemia 7. Supratherapeutic INR, now resolved Plan: Continue with dexamethasone 6mg qid per neurosurgery recommendations, and will taper down slowly Continue to encourage use of IS PRN breathing treatments Continue on Remdesivir IV Resume coumadin Recheck INR in am Time spent coordinating patient's care, discussing with nursing and patient at the bedside: 18 minutes Visit Charges Inpatient E&M: 91689 Subs Hosp L2
--- NOTE | 2021-11-29 11:42 | CASEMGMT ---
Social Work Note RAHEEM reviewed chart and PT/OT. RAHEEM placed a call to [facility] and spoke with Karo. RAHEEM informed Karo that pt is medically ready for discharge. Karo states they can accept pt and will submit for pre-cert. Karo confirms that Remdesivir has to be completed before pt can discharge to them. RAHEEM infromed Karo that pt's Remdesivir will be completed Thursday. Karo states that if pre-cert is obtained and Remdesivir is completed, pt can discharge to [facility] Thursday. RAHEEM provided Karo with [facility] direct number in the event pre-cert is obtained over the weekend. RAHEEM faxed updated clinicals to [facility]. RAHEEM attempted to call pt to update, no answer. RAHEEM will try again. RAHEEM placed Green Sheet on chart in the event pre-cert is obtained over the weekend. Plan: [facility] pending pre-cert. Pt's Remdesivir also has to be completed before pt can discharge. Maureen Hernández DRAIN TILE MACHINE OPERATOR, PLASMA PROCESSING TECHNICIAN
[2021-11-29] MEDS: guaiFENesin 600 MG Tablet PO ×2 (12:32→20:34)
[2021-11-29] MEDS: Loratadine 10 MG Tablet PO (12:32)
[2021-11-29] MEDS: Metoprolol Tartrate 50 MG Tablet PO ×2 (12:32→20:34)
[2021-11-29] MEDS: Potassium Chloride Oral Tablet 20 MEQ PO (12:32)
[2021-11-29] MEDS: Nystatin Powder 15gm Bottle 1 APPLIC TOPICAL ×2 (12:41→20:34)
--- NOTE | 2021-11-29 13:26 | CON.PCM_ITS ---
Consult Date of Consult: 11/29/21 This consultation is being dictated without my having seen the patient. When I went up to see the patient a couple of days ago I was informed by nursing that he had COVID so I basically did a consultation by review of the chart the MRI etc. Apparently he did have a fall at some point. He has a neurosurgeon at the [facility] that he has seen that apparently recommended surgery No Doubt at the L4-5 level where he has significant spinal stenosis. Apparently when he fell he did in fact fracture of the L4 vertebra which may have made the stenosis a bit worse perhaps even though the retropulsion is minimal. The patient was to be transferred the other day however he apparently refused to go and wanted to stay at our institution. Unfortunately the patient lives alone and has no support group. Because of this I think it would be reasonable to put him in rehab until he can follow-up with his neurosurgeon. This will keep him from continuing to decondition. The main goals of rehab would be to strengthen his arms and his legs. The back in and of itself should be left alone. They could also help him transferring and ambulating. After a week or 10 days of therapy he can probably go home and follow-up with his neurosurgeon.
--- NOTE | 2021-11-29 13:58 | CASEMGMT ---
Social Work Note SW updated pt that he has been accepted to [facility] pending pre-cert. SW informed pt that pre-cert needs obtained and pt needs to complete Remdesivir treatment before pt could discharge to the [facility]itional [facility]. Pt states understanding. Plan: [facility] pending pre-cert. Remdesivir treatment needs to be completed for pt before pt can discharge Maureen Hernández SCIENTIST, CURED MEAT PACKING SUPERVISOR
--- NOTE | 2021-11-29 15:07 | CASEMGMT ---
Social Work Note Green sheet, transport forms, COVID tool on pt's chart in the event pre-cert is obtained over the weekend. Maureen Hernández ADVERTISING SPACE CLERK, HOMEOWNER ASSOCIATION MANAGER
[2021-11-29] MEDS: Doxazosin 4 MG Tablet 8 MG PO (20:33)
[2021-11-29] MEDS: Atorvastatin Calcium 80 MG Tablet PO (20:34)
[2021-11-29] MEDS: ENZALUTAMIDE 40 MG CAPSULE 160 MG PO (20:34)
[2021-11-30] VITALS (9 sets, daily range): BP systolic 110–156; BP diastolic 53–93; PULSE 62–89; RESP 16–18; TEMP 36.5–36.6; O2SAT 94–97
[2021-11-30] MEDS: dexAMETHasone 4 MG Tablet 6 MG PO ×3 (05:17→20:45)
[2021-11-30 06:59] LABS: Absolute Lymphocyte Count 1.01 X10^3/uL (0.83-4.51); Absolute Neutrophil Count 4.8 X10^3/uL (2.0-7.7); Basophil# 0.01 X10^3/uL; Basophil% 0.2 % (0-1); Hematocrit 36.9 % (40-54); Hemoglobin 12.4 g/dL (13.0-16.5); Lymphocyte # 1.01 X10^3/ul (0.83-4.51); Lymphocyte % 15.9 % (19-41); Mean Corp Hgb Conc 33.6 g/dL (32-36); Mean Corpuscular Hgb 28.5 pg (27.0-32.0); Mean Corpuscular Volume 84.8 fL (80-94); Mean Platelet Vol. 9.2 fl (6.2-12.0); Monocyte# 0.46 X10^3/uL; Monocyte% 7.3 % (0-10); NRBC Flagged by Analyzer 0 % (0-5); Neutrophil # 4.83 X10^3/uL (2.7-7.7); Neutrophil % 76.1 % (47-70); Platelet Count 139 K/mm3 (150-450); RBC Distribution Width CV 13.1 % (11.6-14.6); RBC Distribution Width SD 40.4 fl (35.1-43.9); Red Blood Count 4.35 M/mm3 (4.6-6.2); White Blood Count 6.3 K/mm3 (4.4-11.0)
[2021-11-30 07:05] LABS: International Normalized Ratio 1.3; Prothrombin Time (Protime)PT. 15.8 SECONDS (11.7-14.9)
[2021-11-30 07:22] LABS: ALB/GLOB Ratio 0.7 RATIO (0.9-2.4); AST(SGOT) 20 U/L (15-37); Alanine Aminotransfer ALT/SGPT 23 U/L (16-61); Albumin, Serum 2.7 g/dL (3.2-5.0); Alkaline Phosphatase 92 U/L (45-117); Anion Gap 4 (5-15); BUN 25 mg/dL (7-18); BUN/Creat Ratio 49.6 RATIO (10-20); Calcium,Total 8.6 mg/dL (8.5-10.1); Chloride 107 mmol/L (98-107); EST Glomerular Filtration Rate 171 mL/min (>60); Est Glom Filt Rate - Afr Amer 207 mL/min (>60); Estimated Creatinine Clearance 71.13 ml/min; Globulin 3.7 g/dL (2.2-4.2); Glucose 108 mg/dL (74-106); Potassium 3.9 mmol/L (3.5-5.1); Protein, Total 6.4 g/dL (6.4-8.2); Sodium Level 140 mmol/L (136-145)
[2021-11-30] MEDS: Loratadine 10 MG Tablet PO (10:06)
[2021-11-30] MEDS: Potassium Chloride Oral Tablet 20 MEQ PO (10:06)
[2021-11-30] MEDS: Losartan Potassium 100 MG Tablet PO (10:07)
[2021-11-30] MEDS: guaiFENesin 600 MG Tablet PO ×2 (10:07→20:46)
[2021-11-30] MEDS: Metoprolol Tartrate 50 MG Tablet PO ×2 (10:07→20:46)
[2021-11-30] MEDS: Nystatin Powder 15gm Bottle 1 APPLIC TOPICAL ×2 (10:08→20:46)
[2021-11-30] MEDS: 0.9% Saline Lock 10 ML Syringe IV (10:09)
--- NOTE | 2021-11-30 11:37 | PN.HOSP_ITS ---
Documented by User: Александр MERCADO 11/30/21 11:43 Subjective Subjective Patient is a 76-year-old male comfortably resting in the chair, alert and oriented x3. Patient denies development of any new symptoms overnight. Does not appear in acute distress. Objective Data Objective Data Vital Signs: Vital Signs Temp Pulse Resp BP Pulse Ox 97.8 F 84 18 127/83 H 96 11/30/21 09:58 11/30/21 10:07 11/30/21 09:58 11/30/21 09:58 11/30/21 09:58 Oxygen Flow Rate (L/min) 2 Oxygen Delivery Method Room Air Weight: 286 lb 6.087 oz Body Mass Index (BMI) 38.8 Intake & Output: Intake and Output for Last 24 Hours 11/28/21 11/29/21 11/30/21 23:59 23:59 23:59 Intake Total 750 / 750 250 / 250 Output Total 350 / 350 300 / 300 Balance 400 / 400 -50 / -50 Lab / Micro Data Result Diagrams: 11/30/21 06:00 11/30/21 06:00 Labs: Laboratory Results - last 24 hr 11/30/21 06:00: PT 15.8 H, INR 1.3 11/30/21 06:00: WBC 6.3, RBC 4.35 L, Hgb 12.4 L, Hct 36.9 L, MCV 84.8, MCH 28.5, MCHC 33.6, RDW Std Deviation 40.4, RDW Coeff of Dick 13.1, Plt Count 139 L, MPV 9.2, Immature Gran % (Auto) 0.500, Neut % (Auto) 76.1 H, Lymph % (Auto) 15.9 L, [place] % (Auto) 7.3, Eos % (Auto) 0.0, Baso % (Auto) 0.2, Absolute Neuts (auto) 4.8, Absolute Lymphs (auto) 1.01, Nucleated RBC % 0 11/30/21 06:00: Sodium 140, Potassium 3.9, Chloride 107, Carbon Dioxide 29.0, Anion Gap 4 L, BUN 25 H, Creatinine 0.50 L, Estim Creat Clear Calc 71.13, Est GFR (MDRD) Af Amer 207, Est GFR (MDRD) Non-Af 171, BUN/Creatinine Ratio 49.6 H, Glucose 108 H, Calcium 8.6, Total Bilirubin 0.90, AST 20, ALT 23, Alkaline Jany sphatase 92, Total Protein 6.4, Albumin 2.7 L, Globulin 3.7, Albumin/Globulin Ratio 0.7 L Micro: Microbiology 11/25/21 13:35 Blood Culture (Wb) - No Site/Description Given Blood Culture - Preliminary No growth in 48 hours. 11/25/21 13:05 Blood Culture (Wb) - Anticubital Left Blood Culture - Preliminary No growth in 48 hours. 11/26/21 13:15 Stool Enteric Bacteriology - Final 11/26/21 13:15 Stool C. difficile DNA Amplification - Final 11/25/21 12:47 Nasal Secretion SARS-CoV-2 Antigen (Rapid) - Final Physical Exam Const alert, oriented x3 and no apparent distress HEENT head/scalp atraumatic and moist oral mucous membranes Head and Scalp: normocephalic Eyes PERRL, EOMs intact bilaterally and conjunctivae normal Neck no lymphadenopathy, supple and no JVD Resp normal respiratory effort, no retractions and no use of accessory muscles Cardio regular rate, regular rhythm and no JVD GI normal to inspection, nondistended, normoactive bowel sounds, soft to palpation and non-tender Extremity normal to inspection, full ROM and no clubbing, cyanosis or edema Skin no rashes or lesions noted, no wounds and skin turgor normal Neuro CN's II-XII intact bilaterally Psych affect normal Assessment & Plan Assessment/Plan (1) Fracture of fourth lumbar vertebra: QUALIFIERS: Encounter type: initial encounter Fracture morphology: unspecified fracture morphology Fracture type: closed Qualified Code(s): S32.049A - Unspecified fracture of fourth lumbar vertebra, initial encounter for closed fracture (2) Generalized weakness: (3) Unable to ambulate: PLAN: Day 5 Discharge planning: To discharge to [facility] pending pre-CERT and completion of remdesivir on 12/01. 1) acute fracture of L4 vertebra Dr. Rm consulted, recommended transfer to tertiary care facility however patient refuses transfer at this time. Patient reports that pain is currently controlled. On Decadron per Dr. Rm, Decadron has been decreased from every 6 hours to 3 times daily. We will begin taper to twice daily on Thursday, coordinate with Dr. Rm on discharge for Decadron course at discharge. 2) generalized weakness MRI demonstrated moderate degenerative change of the thoracic spine, likely related to #1. To discharge to [facility]. 3) COVID-19 PCR was positive on 11/26, ordered after 4 days of sore throat with cough and diarrhea. Currently satting 95% on room air. Continue Decadron and remdesivir, remdesivir to be complete on 12/01 as above. 4) atrial fibrillation Patient is rate controlled on metoprolol and is anticoagulated on warfarin. Continue home regimen. 5) HTN Continue home BP regimen. DVT prophylaxis - warfarin Patient seen by Александр Bhakta PA-C, under the supervision of Dr. Gunderson. Time spend on pateint care: 8 minutes. Documented by User: Dr. Mirna Gunderson MD 11/30/21 13:25 Objective Data Lab / Micro Data Result Diagrams: 11/30/21 06:00 11/30/21 06:00 Charges/Coding Addendum Addendum: This patient was seen in conjunction with JESS Chavez. I have independently interviewed and examined the patient and reviewed pertinent historical, laboratory, and other data. I have reviewed her note and concur with her documentation Patient was seen and examined. He denied any new complaints. He is off oxygen. Denies any fever or chills Discussed With orthopedic surgery, who did not recommend strenuous back exercises due to new acute L4 fracture. Discharge planning ongoing for senior living facility Vitals: Temp Pulse Resp BP Pulse Ox 98.2 F 77 18 128/77 H 98 Physical Exam: Gen: Comfortable, Obese CVS:HS I +II, regular, no murmurs RESP: Diminished at lung bases GI: BS present and normal, soft, nontender, no palpable organs EXT:No edema ASSESSMENT: 1. Acute severe L4 fracture/severe spinal stenosis/moderate DJD of spine 2. Acute hypoxic respiratory insufficiency secondary to Acute COVID-19 pneumonia 3. CAD s/p CABG 4. Chronic A. fib 5. Hypertension 6. Hyperlipidemia 7. Supratherapeutic INR, now resolved Plan: Continue with dexamethasone 6mg qid per neurosurgery recommendations, and will taper down slowly Continue to encourage use of IS PRN breathing treatments Continue on Remdesivir IV Resume coumadin Recheck INR in am Time spent coordinating patient's care, discussing with nursing and patient at the bedside: 10 minutes Visit Charges Inpatient E&M: 58554 [facility] Hosp L1
[2021-11-30] MEDS: Doxazosin 4 MG Tablet 8 MG PO (20:45)
[2021-11-30] MEDS: Atorvastatin Calcium 80 MG Tablet PO (20:46)
[2021-11-30] MEDS: ENZALUTAMIDE 40 MG CAPSULE 160 MG PO (20:47)
[2021-12-01] VITALS (8 sets, daily range): BP systolic 109–139; BP diastolic 65–88; PULSE 61–89; RESP 16–18; TEMP 36.3–36.6; O2SAT 93–98
[2021-12-01] MEDS: dexAMETHasone 4 MG Tablet 6 MG PO ×3 (06:39→21:07)
[2021-12-01 07:23] LABS: Absolute Lymphocyte Count 1.15 X10^3/uL (0.83-4.51); Absolute Neutrophil Count 5.5 X10^3/uL (2.0-7.7); Basophil# 0.01 X10^3/uL; Basophil% 0.1 % (0-1); Eosinophil# 0.03 X10^3/uL; Eosinophils% 0.4 % (0-5); Hematocrit 36.5 % (40-54); Hemoglobin 12.7 g/dL (13.0-16.5); Lymphocyte # 1.15 X10^3/ul (0.83-4.51); Lymphocyte % 16.1 % (19-41); Mean Corp Hgb Conc 34.8 g/dL (32-36); Mean Corpuscular Hgb 29.3 pg (27.0-32.0); Mean Corpuscular Volume 84.1 fL (80-94); Mean Platelet Vol. 9.4 fl (6.2-12.0); Monocyte# 0.46 X10^3/uL; Monocyte% 6.4 % (0-10); NRBC Flagged by Analyzer 0 % (0-5); Neutrophil # 5.47 X10^3/uL (2.7-7.7); Neutrophil % 76.4 % (47-70); Platelet Count 145 K/mm3 (150-450); RBC Distribution Width CV 12.8 % (11.6-14.6); RBC Distribution Width SD 39.7 fl (35.1-43.9); Red Blood Count 4.34 M/mm3 (4.6-6.2); White Blood Count 7.2 K/mm3 (4.4-11.0)
[2021-12-01 07:54] LABS: ALB/GLOB Ratio 0.8 RATIO (0.9-2.4); AST(SGOT) 23 U/L (15-37); Alanine Aminotransfer ALT/SGPT 17 U/L (16-61); Albumin, Serum 2.7 g/dL (3.2-5.0); Alkaline Phosphatase 91 U/L (45-117); Anion Gap 5 (5-15); BUN 22 mg/dL (7-18); BUN/Creat Ratio 44.7 RATIO (10-20); Calcium,Total 8.7 mg/dL (8.5-10.1); Chloride 105 mmol/L (98-107); Creatinine, Serum 0.49 mg/dL (0.70-1.30); EST Glomerular Filtration Rate 176 mL/min (>60); Est Glom Filt Rate - Afr Amer 213 mL/min (>60); Estimated Creatinine Clearance 71.13 ml/min; Globulin 3.6 g/dL (2.2-4.2); Glucose 101 mg/dL (74-106); Protein, Total 6.3 g/dL (6.4-8.2); Sodium Level 137 mmol/L (136-145)
[2021-12-01 08:09] LABS: International Normalized Ratio 1.3; Prothrombin Time (Protime)PT. 15.2 SECONDS (11.7-14.9)
[2021-12-01] MEDS: Losartan Potassium 100 MG Tablet PO (10:00)
[2021-12-01] MEDS: Metoprolol Tartrate 50 MG Tablet PO ×2 (10:00→21:08)
[2021-12-01] MEDS: guaiFENesin 600 MG Tablet PO ×2 (10:00→21:08)
[2021-12-01] MEDS: Potassium Chloride Oral Tablet 20 MEQ PO (10:00)
[2021-12-01] MEDS: Loratadine 10 MG Tablet PO (10:00)
[2021-12-01] MEDS: Nystatin Powder 15gm Bottle 1 APPLIC TOPICAL (10:01)
--- NOTE | 2021-12-01 10:34 | PN.HOSP_ITS ---
Documented by User: Александр MERCADO 12/01/21 10:40 Subjective Subjective Patient is a 76-year-old male comfortably resting in a chair, alert and oriented x3. Patient denies development of any new symptoms overnight. Does not appear in acute distress. Objective Data Objective Data Vital Signs: Vital Signs Temp Pulse Resp BP Pulse Ox 97.5 F L 89 16 139/88 H 93 12/01/21 09:49 12/01/21 10:00 12/01/21 09:49 12/01/21 09:49 12/01/21 09:49 Oxygen Flow Rate (L/min) 2 Oxygen Delivery Method Room Air Weight: 286 lb 6.087 oz Body Mass Index (BMI) 38.8 Intake & Output: Intake and Output for Last 24 Hours 11/29/21 11/30/21 12/01/21 23:59 23:59 23:59 Intake Total 250 / 250 250 / 750 500 / 500 Output Total 300 / 300 850 / 850 Balance -50 / -50 250 / 500 -350 / -350 Lab / Micro Data Result Diagrams: 12/01/21 06:38 12/01/21 06:38 Labs: Laboratory Results - last 24 hr 12/01/21 06:38: PT 15.2 H, INR 1.3 12/01/21 06:38: WBC 7.2, RBC 4.34 L, Hgb 12.7 L, Hct 36.5 L, MCV 84.1, MCH 29.3, MCHC 34.8, RDW Std Deviation 39.7, RDW Coeff of Dick 12.8, Plt Count 145 L, MPV 9.4, Immature Gran % (Auto) 0.600, Neut % (Auto) 76.4 H, Lymph % (Auto) 16.1 L, [place] % (Auto) 6.4, Eos % (Auto) 0.4, Baso % (Auto) 0.1, Absolute Neuts (auto) 5.5, Absolute Lymphs (auto) 1.15, Nucleated RBC % 0 12/01/21 06:38: Sodium 137, Potassium 4.0, Chloride 105, Carbon Dioxide 27.0, Anion Gap 5, BUN 22 H, Creatinine 0.49 L, Estim Creat Clear Calc 71.13, Est GFR (MDRD) Af Amer 213, Est GFR (MDRD) Non-Af 176, BUN/Creatinine Ratio 44.7 H, Glucose 101, Calcium 8.7, Total Bilirubin 0.90, AST 23, ALT 17, Alkaline Phosphatase 91, Total Protein 6.3 L, Albumin 2.7 L, Globulin 3.6, Albumin/Gl obulin Ratio 0.8 L Micro: Microbiology 11/25/21 13:35 Blood Culture (Wb) - No Site/Description Given Blood Culture - Final No growth in 5 days. 11/25/21 13:05 Blood Culture (Wb) - Anticubital Left Blood Culture - Final No growth in 5 days. 11/26/21 13:15 Stool Enteric Bacteriology - Final 11/26/21 13:15 Stool C. difficile DNA Amplification - Final 11/25/21 12:47 Nasal Secretion SARS-CoV-2 Antigen (Rapid) - Final Physical Exam Const alert, oriented x3 and no apparent distress HEENT head/scalp atraumatic and moist oral mucous membranes Head and Scalp: normocephalic Eyes PERRL, EOMs intact bilaterally and conjunctivae normal Neck no lymphadenopathy, supple and no JVD Resp normal respiratory effort, no retractions, no use of accessory muscles and clear to auscultation bilaterally Cardio regular rate, regular rhythm, no murmurs and no JVD GI normal to inspection, nondistended, normoactive bowel sounds, soft to palpation and non-tender Extremity normal to inspection, full ROM and no clubbing, cyanosis or edema Skin no rashes or lesions noted, no wounds and skin turgor normal Neuro CN's II-XII intact bilaterally Psych affect normal Assessment & Plan Assessment/Plan (1) Fracture of fourth lumbar vertebra: QUALIFIERS: Encounter type: initial encounter Fracture morpholo gy: unspecified fracture morphology Fracture type: closed Qualified Code(s): S32.049A - Unspecified fracture of fourth lumbar vertebra, initial encounter for closed fracture (2) Generalized weakness: (3) Unable to ambulate: PLAN: Day 6 Discharge planning: To discharge to [facility] pending pre-CERT. 1) acute fracture of L4 vertebra Dr. Rm consulted, recommended transfer to tertiary care facility however patient refuses transfer at this time. Patient reports that pain is currently controlled. On Decadron per Dr. Rm, Decadron has been decreased from every 6 hours to 3 times daily. We will begin taper to twice daily on Thursday, coordinate with Dr. Rm on discharge for Decadron course at discharge. 2) generalized weakness MRI demonstrated moderate degenerative change of the thoracic spine, likely related to #1. To discharge to [facility]. 3) COVID-19 PCR was positive on 11/26, ordered after 4 days of sore throat with cough and diarrhea. Currently satting 95% on room air. Remdesivir to complete today, continue Decadron as above. 4) atrial fibrillation Patient is rate controlled on metoprolol and is anticoagulated on warfarin. Continue home regimen. 5) HTN Continue home BP regimen. DVT prophylaxis - warfarin Patient seen by Александр Bhakta PA-C, under the supervision of Dr. Gunderson. Time spend on pateint care: 7 minutes. Documented by User: Dr. Mirna Gunderson MD 12/01/21 13:10 Objective Data Lab / Micro Data Result Diagrams: 12/01/21 06:38 12/01/21 06:38 Charges/Coding Addendum Addendum: This patient was seen in conjunction with JESS Chavez. I have independently interviewed and examined the patient and reviewed pertinent historical, laboratory, and other data. I have reviewed her note and concur with her documentation Patient was seen and examined. No new complaints. Awaiting discharge to nursing home facility Vitals: Temp Pulse Resp BP Pulse Ox 97.5 F L 89 16 139/88 H 93 Physical Exam: Gen: Comfortable, Obese CVS:HS I +II, regular, no murmurs RESP: Diminished at lung bases GI: BS present and normal, soft, nontender, no palpable organs EXT:No edema ASSESSMENT: 1. Acute severe L4 fracture/severe spinal stenosis/moderate DJD of spine 2. Acute hypoxic respiratory insufficiency secondary to Acute COVID-19 pneumonia 3. CAD s/p CABG 4. Chronic A. fib 5. Hypertension 6. Hyperlipidemia 7. Supratherapeutic INR, now resolved Plan: Continue with dexamethasone 6 mg 3 times daily, taper down to daily every few days Continue to encourage use of IS PRN breathing treatments Patient will complete remdesivir today Continue Coumadin Recheck INR in am Time spent coordinating patient's care, discussing with nursing and patient at the bedside: 10 minutes Visit Charges Inpatient E&M: 97587 Subs Hosp L2
[2021-12-01] MEDS: Doxazosin 4 MG Tablet 8 MG PO (21:07)
[2021-12-01] MEDS: Atorvastatin Calcium 80 MG Tablet PO (21:08)
[2021-12-01] MEDS: ENZALUTAMIDE 40 MG CAPSULE 160 MG PO (21:14)
[2021-12-01] MEDS: 0.9% Saline Lock 10 ML Syringe IV (21:17)
[2021-12-02] VITALS (9 sets, daily range): BP systolic 101–142; BP diastolic 60–81; PULSE 54–93; RESP 18–20; TEMP 36.2–36.6; O2SAT 95–99
[2021-12-02 05:58] LABS: Absolute Lymphocyte Count 1.03 X10^3/uL (0.83-4.51); Absolute Neutrophil Count 6.5 X10^3/uL (2.0-7.7); Basophil# 0.01 X10^3/uL; Basophil% 0.1 % (0-1); Eosinophil# 0.07 X10^3/uL; Eosinophils% 0.9 % (0-5); Hematocrit 37.8 % (40-54); Lymphocyte # 1.03 X10^3/ul (0.83-4.51); Lymphocyte % 12.6 % (19-41); Mean Corp Hgb Conc 34.4 g/dL (32-36); Mean Corpuscular Volume 84.2 fL (80-94); Mean Platelet Vol. 9.3 fl (6.2-12.0); Monocyte# 0.54 X10^3/uL; Monocyte% 6.6 % (0-10); NRBC Flagged by Analyzer 0 % (0-5); Neutrophil # 6.49 X10^3/uL (2.7-7.7); Neutrophil % 79.2 % (47-70); Platelet Count 153 K/mm3 (150-450); RBC Distribution Width CV 12.9 % (11.6-14.6); RBC Distribution Width SD 39.7 fl (35.1-43.9); Red Blood Count 4.49 M/mm3 (4.6-6.2); White Blood Count 8.2 K/mm3 (4.4-11.0)
[2021-12-02 06:26] LABS: International Normalized Ratio 1.3; Prothrombin Time (Protime)PT. 15.6 SECONDS (11.7-14.9)
[2021-12-02] MEDS: dexAMETHasone 4 MG Tablet 6 MG PO ×2 (06:26→13:36)
[2021-12-02 06:40] LABS: ALB/GLOB Ratio 0.8 RATIO (0.9-2.4); AST(SGOT) 22 U/L (15-37); Alanine Aminotransfer ALT/SGPT 23 U/L (16-61); Albumin, Serum 2.8 g/dL (3.2-5.0); Alkaline Phosphatase 94 U/L (45-117); Anion Gap 6 (5-15); BUN 23 mg/dL (7-18); BUN/Creat Ratio 36.9 RATIO (10-20); Calcium,Total 8.6 mg/dL (8.5-10.1); Chloride 106 mmol/L (98-107); Creatinine, Serum 0.62 mg/dL (0.70-1.30); EST Glomerular Filtration Rate 134 mL/min (>60); Est Glom Filt Rate - Afr Amer 162 mL/min (>60); Estimated Creatinine Clearance 71.13 ml/min; Globulin 3.5 g/dL (2.2-4.2); Glucose 106 mg/dL (74-106); Potassium 3.9 mmol/L (3.5-5.1); Protein, Total 6.3 g/dL (6.4-8.2); Sodium Level 139 mmol/L (136-145)
--- NOTE | 2021-12-02 08:17 | PN.HOSP_ITS ---
Subjective Subjective Patient is a 76-year-old gentleman who presented with progressive generalized weakness with associated sore throat cough and diarrhea. Tested positive for COVID-19 on admission. Patient was also found to have acute fracture of the L4 vertebrae Objective Data Objective Data Vital Signs: Vital Signs Temp Pulse Resp BP Pulse Ox 97.2 F L 54 L 18 142/81 H 97 12/02/21 04:37 12/02/21 07:42 12/02/21 04:37 12/02/21 04:37 12/02/21 07:42 Oxygen Flow Rate (L/min) 2 Oxygen Delivery Method Room Air Weight: 129.9 kg Body Mass Index (BMI) 38.8 Intake & Output: Intake and Output for Last 24 Hours 11/30/21 12/01/21 12/02/21 23:59 23:59 23:59 Intake Total 250 / 750 1300 / 1300 Output Total 850 / 850 Balance 250 / 500 450 / 450 Lab / Micro Data Result Diagrams: 12/02/21 05:18 12/02/21 05:18 Labs: Laboratory Results - last 24 hr 12/02/21 05:18: PT 15.6 H, INR 1.3 12/02/21 05:18: WBC 8.2, RBC 4.49 L, Hgb 13.0, Hct 37.8 L, MCV 84.2, MCH 29.0, MCHC 34.4, RDW Std Deviation 39.7, RDW Coeff of Dick 12.9, Plt Count 153, MPV 9.3, Immature Gran % (Auto) 0.600, Neut % (Auto) 79.2 H, Lymph % (Auto) 12.6 L, [place] % (Auto) 6.6, Eos % (Auto) 0.9, Baso % (Auto) 0.1, Absolute Neuts (auto) 6.5, Absolute Lymphs (auto) 1.03, Nucleated RBC % 0 12/02/21 05:18: Sodium 139, Potassium 3.9, Chloride 106, Carbon Dioxide 27.0, Anion Gap 6, BUN 23 H, Creatinine 0.62 L, Estim Creat Clear Calc 71.13, Est GFR (MDRD) Af Amer 162, Est GFR (MDRD) Non-Af 134, BUN/Creatinine Ratio 36.9 H, Glucose 106, Calcium 8.6, Total Bilirubin 0.90, AST 22, ALT 23, Alkaline Phosphatase 94, Total Protein 6.3 L, Albumin 2.8 L, Globulin 3.5, A lbumin/Globulin Ratio 0.8 L Micro: Microbiology 11/25/21 13:35 Blood Culture (Wb) - No Site/Description Given Blood Culture - Final No growth in 5 days. 11/25/21 13:05 Blood Culture (Wb) - Anticubital Left Blood Culture - Final No growth in 5 days. 11/26/21 13:15 Stool Enteric Bacteriology - Final 11/26/21 13:15 Stool C. difficile DNA Amplification - Final 11/25/21 12:47 Nasal Secretion SARS-CoV-2 Antigen (Rapid) - Final Physical Exam Narrative GENERAL: cooperative HEENT: Atraumatic; EYES; Anicteric, Normal Conjunctiva NECK; supple, normal thyroid, RESPIRATORY: Diminished to auscultation CARDIOVASCULAR: Irregular S1-S2 GI: soft, normoactive bowel sounds, : No Renal angle tenderness; EXTREMITIES: No edema, no clubbing, MUSCULOSKELETAL: no muscle waisting NEURO: Awake; no lateralizing signs. SKIN: No Rash PSYCH; Flat affect Assessment & Plan Assessment/Plan (1) Fracture of fourth lumbar vertebra: QUALIFIERS: Encounter type: initial encounter Fracture morphology: unspecified fracture morphology Fracture type: closed Qualified Code(s): S32.049A - Unspecified fracture of fourth lumbar vertebra, initial encounter for closed fracture (2) Generalized weakness: (3) Unable to ambulate: PLAN: Patient is a 76-year-old gentleman who presented with progressive generalized weakness with associated sore throat cough and diarrhea. Tested positive for COVID-19 on admission. Patient was also found to have acute fra cture of the L4 vertebrae 1. Acute COVID-19 infection ?Patient symptoms started on 11/22/2020. Has been managed with Decadron which he did complete on 12/01/2021 2. Acute fracture involving L4 vertebra ?Patient was seen in consultation by Dr. Rm with spine surgery who recommended transfer to a tertiary care center patient however declined. Patient has since been managed with a course of Decadron 3. Physical deconditioning - Requested for PT OT eval and social service assistant to assist with discharge planning 4. Paroxysmal A. fib ?Rate controlled on systemic anticoagulation with warfarin. Been subtherapeutic we will continue with current dose of Coumadin with daily monitoring with INR 5. Hypertension - Blood pressure controlled, home medications continued with dose adjustment as needed 6. Coronary artery disease ?With previous history of CABG 7. History of prostate CA ?Patient is on leuprolide every 3 month as well as Xtandi daily 8. Dyslipidemia -Patient is on statin therapy, continued at home dose 9. DVT prophylaxis ?On systemic anticoagulation with Coumadin Charges/Coding Visit Charges Inpatient E&M: 46701 Subs Hosp L2
[2021-12-02] MEDS: Losartan Potassium 100 MG Tablet PO (09:28)
[2021-12-02] MEDS: Loratadine 10 MG Tablet PO (09:28)
[2021-12-02] MEDS: Metoprolol Tartrate 50 MG Tablet PO (09:28)
[2021-12-02] MEDS: Potassium Chloride Oral Tablet 20 MEQ PO (09:28)
[2021-12-02] MEDS: Nystatin Powder 15gm Bottle 1 APPLIC TOPICAL (09:29)
[2021-12-02] MEDS: guaiFENesin 600 MG Tablet PO (09:29)
--- NOTE | 2021-12-02 10:07 | CASEMGMT ---
Social Work Note RAHEEM faxed updated clinicals to [facility]. RAHEEM wrote on fax coversheet pt is medically ready for discharge once pre-cert is obtained. Plan: [facility] pending pre-cert Maureen Hernández ALLERGY NURSE, INVESTMENT CONSULTANT
--- NOTE | 2021-12-02 11:10 | CASEMGMT ---
Social Work Note SW received message from Gina at [facility] stating pre-cert has been obtained, pt can discharge today. SW updated physician. Plan: [facility] skilled Maureen Hernández MSW, PLASMA TABLE OPERATOR
--- NOTE | 2021-12-02 11:30 | PCM.TXEXTCAR ---
Diet 11/25/21 17:30 Diet: Cardiac - Heart Healthy Food consistency:: Regular Liquid Consistency:: Regular/Thin Type of Dietary Supplement:: Ensure Enlive Is pt able to select menu?: Yes Diet Comments: Ensure Enlive at lunch - strawberry if able; Ensure pudding at Dinner Routine Orders/Code Status Routine Lab Work: CBC (On 12/04/2011), BMP and INR Code Status: DNRCC-A Therapies Physical Therapy: Eval and Treat Occupational Therapy: Eval and Treat Problem/Diagnosis (1) Fracture of fourth lumbar vertebra: Status: Acute (2) Generalized weakness: Status: Acute (3) Unable to ambulate: Status: Acute Allergies/Procedures Done in Hospital Allergies amiodarone Adverse Reaction (Intermediate, Verified 11/25/21 12:16) It did not work, also bad dreams and neuropathy Type of Care/Length of Stay Estimated LOS: Convalescent Care Less Than 30 days Type of Care Needed: Skilled Rehab Potential: Good Prognosis: Good Additional Orders/Day of Discharge Day of Discharge: 12/02/21 Dietary and Speech Recommendations Dietitian Recommendations/Changes: Cardiac heart healthy diet order appropriate addition of Ensure Complete at L and Ensure pudding at dinner to assist with nutrients for healing Discharge Plan Admission Admit Date/Time: 11/26/21 15:55 Attending Provider: Carlo Larsen Primary Care Provider: James Pisano Chi Consulting Providers: Ted Rm Discharge Orders/Prescriptions Prescriptions: New nystatin [Nyamyc] 100,000 unit/gram Powder 1 applic topical BID 7 Days RF: 0 guaifenesin [Mucus Relief ER] 600 mg Tablet Extended Release 12hr 600 mg PO BID Qty: 20 RF: 0 dexamethasone [Decadron] 6 mg tablet 6 mg PO DAILY Qty: 30 RF: 0 Continued potassium chloride 20 mEq tablet extended release 20 meq PO DAILY RF: 0 cholecalciferol (vitamin D3) 1,250 mcg (50,000 unit) capsule 1,000 unit PO DAILY RF: 0 acetaminophen 325 mg tablet 650 mg PO PRN PRN (Reason: Pain) RF: 0 cromolyn [Nasalcrom] 5.2 mg/spray (4 %) spray,non-aerosol 2 spray INTRANASAL DAILY RF: 0 metoprolol tartrate 50 mg tablet 50 mg PO BID RF: 0 terazosin 10 mg capsule 10 mg PO QHS RF: 0 losartan 100 mg tablet 100 mg PO DAILY RF: 0 Lupron Depot (3 month) 22.5 mg syringe kit 11.25 mg IM [id number] RF: 0 atorvastatin 80 MG tablet 80 mg PO QHS RF: 0 cetirizine 10 MG capsule 10 mg PO DAILY RF: 0 enzalutamide 40 MG capsule 160 mg PO DAILY RF: 0 warfarin 7.5 mg Tablet 7.5 mg PO DAILY RF: 0 Referrals / Follow Up: James Pisano Chi, MD [Primary Care Provider] - Within 2 Weeks Disposition Disposition (needs filled in before D/C Order can be placed): Shelter Facility
--- NOTE | 2021-12-02 11:44 | DS.PCM_ITS ---
Providers Date of Admission: 11/26/21 Primary Care Physician: Dr. James Pisano MD Consultations 11/25/21 19:35 Consult: Orthopedics Routine Consulting Provider: Ted Rm Reason for Consult: Bilateral leg weakness.chronic lumbar back pain EMERGENT Consult: No MD Notified: Yes Date Notified: 11/25/21 Time Notified: 19:37 Method of Notification: Text Comments:: history of C and thoracic spine surgery Reason For Visit: WEAKNESS, UNABLE TO AMBULATE Diagnosis Discharge Diagnosis (1) Fracture of fourth lumbar vertebra: Status: Acute Code(s): S32.049A - Unspecified fracture of fourth lumbar vertebra, initial encounter for closed fracture Qualifiers: Encounter type: initial encounter Fracture type: closed Fracture morphology: unspecified fracture morphology Qualified Code(s): S32.049A - Unspecified fracture of fourth lumbar vertebra, initial encounter for closed fracture (2) Generalized weakness: Status: Acute Code(s): R53.1 - Weakness (3) Unable to ambulate: Status: Acute Code(s): R26.2 - Difficulty in walking, not elsewhere classified Medications at Discharge Home Medications atorvastatin 80 mg PO QHS 04/02/16 potassium chloride 20 mEq tablet,extended release 20 meq PO DAILY 12/03/18 cetirizine 10 mg PO DAILY 12/27/18 acetaminophen 325 mg tablet 650 mg PO PRN PRN tab 03/09/19 cromolyn 5.2 mg/spray (4 %) nasal spray 2 spray INTRANASAL DAILY ml 03/09/19 metoprolol tartrate 50 mg tablet 50 mg PO BID 03/15/19 terazosin 10 mg capsule 10 mg PO QHS 03/15/19 leuprolide (3 month) 22.5 mg (3 month) intramuscular syringe kit 11.25 mg IM [id number] 04/23/20 losartan 100 mg tablet 100 mg PO DAILY 04/23/20 cholecalciferol (vitamin D3) 1,250 mcg (50,000 unit) capsule 1,000 unit PO DAILY cap 10/29/20 enzalutamide 160 mg PO DAILY 01/05/21 warfarin 7.5 mg PO DAILY 11/25/21 dexamethasone [Decadron] 6 mg PO DAILY #30 tab 12/02/21 guaifenesin [Mucus Relief ER] 600 mg PO BID #20 tab 12/02/21 nystatin [Nyamyc] 1 applic TOPICAL BID 7 Days g 12/02/21 Hospital Course Operations None Summary of Care Provided Minutes Spent on Discharge: 35 Hospital Course: Patient is a 76-year-old gentleman who presented with progressive generalized weakness with associated sore throat cough and diarrhea. Tested positive for COVID-19 on admission. Patient was also found to have acute fracture of the L4 vertebrae 1. Acute COVID-19 infection ?Patient symptoms started on 11/22/2020. Has been managed with Decadron which he did complete on 12/01/2021 2. Acute fracture involving L4 vertebra ?Patient was seen in consultation by Dr. Rm with spine surgery who recommended transfer to a tertiary care center patient however declined. Patient has since been managed with a course of Decadron 3. Physical deconditioning - Requested for PT OT eval and social science manager to assist with discharge planning 4. Paroxysmal A. fib ?Rate controlled on systemic anticoagulation with warfarin. Been subtherapeutic we will continue with current dose of Coumadin with daily monitoring with INR 5. Hypertension - Blood pressure controlled, home medications continued with dose adjustment as needed 6. Coronary artery disease ?With previous history of CABG 7. History of prostate CA ?Patient is on leuprolide every 3 month as well as Xtandi daily 8. Dyslipidemia -Patient is on statin therapy, continued at home dose 9. DVT prophylaxis ?On systemic anticoagulation with Coumadin Physical Exam Narrative GENERAL: cooperative HEENT: Atraumatic; EYES; Anicteric, Normal Conjunctiva NECK; supple, normal thyroid, RESPIRATORY: Diminished to auscultation CARDIOVASCULAR: Irregular S1-S2 GI: soft, normoactive bowel sounds, : No Renal angle tenderness; EXTREMITIES: No edema, no clubbing, MUSCULOSKELETAL: no muscle waisting NEURO: Awake; no lateralizing signs. SKIN: No Rash PSYCH; Flat affect Weight / BMI Weight Weight: 129.9 kg Body Mass Index (BMI) 38.8 ABG / Lab / Microbiology Data Result Diagrams: 12/02/21 05:18 12/02/21 05:18 Laboratory: Laboratory Results - last 24 hr 12/02/21 05:18: PT 15.6 H, INR 1.3 12/02/21 05:18: WBC 8.2, RBC 4.49 L, Hgb 13.0, Hct 37.8 L, MCV 84.2, MCH 29.0, MCHC 34.4, RDW Std Deviation 39.7, RDW Coeff of Dick 12.9, Plt Count 153, MPV 9.3, Immature Gran % (Auto) 0.600, Neut % (Auto) 79.2 H, Lymph % (Auto) 12.6 L, [place] % (Auto) 6.6, Eos % (Auto) 0.9, Baso % (Auto) 0.1, Absolute Neuts (auto) 6.5, Absolute Lymphs (auto) 1.03, Nucleated RBC % 0 12/02/21 05:18: Sodium 139, Potassium 3.9, Chloride 106, Carbon Dioxide 27.0, Anion Gap 6, BUN 23 H, Creatinine 0.62 L, Estim Creat Clear Calc 71.13, Est GFR (MDRD) Af Amer 162, Est GFR (MDRD) Non-Af 134, BUN/Creatinine Ratio 36.9 H, Glucose 106, Calcium 8.6, Total Bilirubin 0.90, AST 22, ALT 23, Alkaline Phosphatase 94, Total Protein 6.3 L, Albumin 2.8 L, Globulin 3.5, Albumin/Globulin Ratio 0.8 L Microbiology: Microbiology 11/25/21 13:35 Blood Culture (Wb) - No Site/Description Given Blood Culture - Final No growth in 5 days. 11/25/21 13:05 Blood Culture (Wb) - Anticubital Left Blood Culture - Final No growth in 5 days. 11/26/21 13:15 Stool Enteric Bacteriology - Final 11/26/21 13:15 Stool C. difficile DNA Amplification - Final 11/25/21 12:47 Nasal Secretion SARS-CoV-2 Antigen (Rapid) - Final Meaningful Use Info Meaningful Use Diagnoses (Choose all that apply): None applicable Discharge Plan Admission Admit Date/Time: 11/26/21 15:55 Attending Provider: Carlo Larsen Primary Care Provider: James Pisano Chi Consulting Providers: Ted Rm Discharge Orders/Prescriptions Prescriptions: New nystatin [Nyamyc] 100,000 unit/gram Powder 1 applic topical BID 7 Days RF: 0 guaifenesin [Mucus Relief ER] 600 mg Tablet Extended Release 12hr 600 mg PO BID Qty: 20 RF: 0 dexamethasone [Decadron] 6 mg tablet 6 mg PO DAILY Qty: 30 RF: 0 Continued potassium chloride 20 mEq tablet extended release 20 meq PO DAILY RF: 0 cholecalciferol (vitamin D3) 1,250 mcg (50,000 unit) capsule 1,000 unit PO DAILY RF: 0 acetaminophen 325 mg tablet 650 mg PO PRN PRN (Reason: Pain) RF: 0 cromolyn [Nasalcrom] 5.2 mg/spray (4 %) spray,non-aerosol 2 spray INTRANASAL DAILY RF: 0 metoprolol tartrate 50 mg tablet 50 mg PO BID RF: 0 terazosin 10 mg capsule 10 mg PO QHS RF: 0 losartan 100 mg tablet 100 mg PO DAILY RF: 0 Lupron Depot (3 month) 22.5 mg syringe kit 11.25 mg IM [id number] RF: 0 atorvastatin 80 MG tablet 80 mg PO QHS RF: 0 cetirizine 10 MG capsule 10 mg PO DAILY RF: 0 enzalutamide 40 MG capsule 160 mg PO DAILY RF: 0 warfarin 7.5 mg Tablet 7.5 mg PO DAILY RF: 0 Referrals / Follow Up: James Pisano Chi, MD [Primary Care Provider] - Within 2 Weeks Disposition Disposition (needs filled in before D/C Order can be placed): [facility] Charges/Coding Visit Charges Inpatient E&M: 97456 Disch Hosp
--- NOTE | 2021-12-02 12:30 | CASEMGMT ---
Social Work Note RAHEEM faxed completed discharge paperwork to [facility] including transfer to extended care facility, signed medication list, any scripts, COVID tool. Original in SNF fodler and copy on pt's chart. SW spoke with RN, pt to transport via wheelchair van. SW accessed trip assist and arranged transportation via wheelchair van for 1:30pm. Transportation form completed and placed on SNF folder and copy on pt's chart. RAHEEM updated RN on transportation time. RAHEEM placed a call to [facility] and updated Gina on transportation time. RAHEEM placed a call to pt and updated him on transportation time. Plan: [facility] skilled with physician's transporting pt via wheelchair van at 1:30pm Maureen MURILLO, REINFORCED CONCRETE INSPECTOR
--- NOTE | 2021-12-02 13:50 | NURSING ---
report called to clarissa SUERO
== END 2021-12-02 14:20 | disposition skilled nursing facility (03) | DRG 177 ==
LOC: ED 14:06 → MS2 15:46 → MS3 11-26 18:15
PROVIDERS: Internal Medicine; Nurse Practitioner Family; Admitting Provider Internal Medicine; Emergency Provider Emergency Medicine; PCP Family Medicine Geriatric Medicine; Visit Provider Internal Medicine
DX: U07.1 COVID-19 (principal); J12.82 Pneumonia due to coronavirus disease 2019; I48.20 Chronic atrial fibrillation, unspecified; S32.049A Unspecified fracture of fourth lumbar vertebra, initial encounter for closed fracture; M48.04 Spinal stenosis, thoracic region; I10 Essential (primary) hypertension; I25.10 Atherosclerotic heart disease of native coronary artery without angina pectoris; E78.5 Hyperlipidemia, unspecified; R26.2 Difficulty in walking, not elsewhere classified; M54.9 Dorsalgia, unspecified; Z20.822 Contact with and (suspected) exposure to COVID-19; R53.1 Weakness; Z79.01 Long term (current) use of anticoagulants; Z87.891 Personal history of nicotine dependence; R09.02 Hypoxemia; R79.1 Abnormal coagulation profile; Z66 Do not resuscitate; Z95.1 Presence of aortocoronary bypass graft; Z98.1 Arthrodesis status; Z85.46 Personal history of malignant neoplasm of prostate; G89.29 Other chronic pain
CPT/HCPCS: 36415; 71045; 72146; 72148; 80048; 80053; 81001; 83735; 84075; 85025; 85610; 87040; 87426; 87493; 87506; 87635; 93005; 97110; 97116; 97163; 97166; 97530; 97535; 97802; 99285; J7050; A4216; J0248; J1940; U0003; U0005

== ENCOUNTER 2021-12-13 13:58 | Inpatient (IN) | payer MEDICARE, SELFPAY ==
[2021-12-13] VITALS (14 sets, daily range): BP systolic 93–135; BP diastolic 38–106; PULSE 95–144; RESP 18–33; TEMP 36.8–38.3; O2SAT 93–97; BMI 41.1; BMI 40.1
--- NOTE | 2021-12-13 14:19 | RAD_ITS ---
STUDY: X-RAY - PELVIS AND LEFT HIP REASON FOR EXAM: Male, 76 years old. Injury TECHNIQUE: 3 views of the pelvis and hip. COMPARISON: None. FINDINGS: There is a non-specific bowel gas pattern. 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 There is narrowing with cortical sclerosis and osteophyte formation of the sacroiliac joint consistent with degenerative osteoarthritic changes. Normal bilateral superior and inferior pubic rami. Normal pubic symphysis. Normal bilateral ischial tuberosities. Impacted transcervical fracture of the proximal left femur. Cephalic migration of the distal fracture fragment. RAD/HIP, UNI W/ Pelvis 2-3 Views IMPRESSION: Impacted transcervical fracture of the proximal left femur. Cephalic migration of the distal fracture fragment. Electronically Signed: Benjie Lieberman MD at 16:03 EST ,
--- NOTE | 2021-12-13 14:19 | RAD_ITS ---
STUDY: X-RAY - LEFT SHOULDER REASON FOR EXAM: Male, 76 years old. Injury TECHNIQUE: 2 view(s) of the shoulder. COMPARISON: None. FINDINGS: Normal glenohumeral articulation. Normal acromioclavicular joint. Normal acromion. Nondisplaced transverse fracture of the surgical neck of the proximal humerus. Soft tissue swelling. Normal visualized pulmonary apex. RAD/Shoulder min 2 Views IMPRESSION: Nondisplaced transverse fracture of the surgical neck of the proximal left humerus. Electronically Signed: Benjie Lieberman MD at 16:01 EST ,
--- NOTE | 2021-12-13 14:33 | EDS_ITS ---
HPI History of Present Illness Chief Complaint: Fall Informant: patient and EMS Narrative Narrative: 76-year-old male presenting to the emergency room with left shoulder and hip pain. Patient states that he went to sit on a chair and missed it and fell. He was unable to get up. Patient notes that he feels very chilled and shivering. He recently tested positive for Covid on 11/26/21. He is on Coumadin. He denies hitting his head. 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 Longstanding persistent atrial fibrillation Sepsis Traumatic hemothorax (12/30/18) Home Medications atorvastatin 80 mg PO QHS 04/02/16 [History Last Taken 11/24/21 22:00 80 mg] potassium chloride 20 mEq tablet,extended release 20 meq PO DAILY 12/03/18 [History Last Taken 11/25/21 10:00 20 meq] cetirizine 10 mg PO DAILY 12/27/18 [History Last Taken 11/25/21 10:00 10 mg] acetaminophen 325 mg tablet 650 mg PO PRN PRN tab 03/09/19 [History Last Taken 11/24/21 21:00 650] cromolyn 5.2 mg/spray (4 %) nasal spray 2 spray INTRANASAL DAILY ml 03/09/19 [History Last Taken 11/25/21 10:00 2 sprays] metoprolol tartrate 50 mg tablet 50 mg PO BID 03/15/19 [History Last Taken 11/25/21 10:00 50 mg] terazosin 10 mg capsule 10 mg PO QHS 03/15/19 [History Last Taken 11/24/21 22:00 10 mg] leuprolide (3 month) 22.5 mg (3 month) intramuscular syringe kit 11.25 mg IM [id number] 04/23/20 [History Last Taken 08/26/21] losartan 100 mg tablet 100 mg PO DAILY 04/23/20 [History Last Taken 11/25/21 10:00 100] cholecalciferol (vitamin D3) 1,250 mcg (50,000 unit) capsule 1,000 unit PO DAILY cap 10/29/20 [History Last Taken 11/24/21 22:00 1000 units] enzalutamide 160 mg PO DAILY 01/05/21 [History Last Taken 11/24/21 22:00 160 mg] warfarin 7.5 mg PO DAILY 11/25/21 [History Last Taken 11/24/21 21:00 7.5mg] guaifenesin [Mucus Relief ER] 600 mg PO BID #20 tab 12/02/21 [Rx Last Taken Unknown] nystatin [Nyamyc] 1 applic TOPICAL BID 7 Days g 12/02/21 [Rx Last Taken Unknown] Allergy/AdvReac Type Severity Reaction Status Date / Time amiodarone AdvReac Intermediate It did not Verified 11/25/21 12:16 work, also bad dreams and neuropathy Family History Father , Age 57 Myocardial infarction CAD (coronary artery disease) ETOH abuse Mother , Age 47, of bone cancer Bone cancer Brother , age 45, of AIDS AIDS (acquired immune deficiency syndrome) Surgical History H/O cervical spine surgery (01/2020) H/O coronary artery bypass surgery (11/26/98) History of left heart catheterization (11/26/98) History of thoracic spinal fusion (12/30/18) Social History (Updated 12/13/21 @ 14:[address] Hilario Marroquin DO) Smoking Status: Former smoker substance use type: does not use ROS ROS ED Constitutional Constitutional ED: Reports chills; Denies fever(s) or weight loss Eyes Eyes: Denies change in vision or diplopia ENT ENT ED: Denies ear pain, rhinorrhea or sore throat Cardiovascular Cardiovascular: Denies chest pain, orthopnea, palpitations or racing heartbeat Respiratory/Chest Respiratory/Chest: Denies cough, dyspnea or orthopnea Gastrointestinal Gastrointestinal: Denies abdominal pain, diarrhea, nausea or vomiting Genitourinary Genitourinary ED: Denies dysuria, hematuria or urinary frequency Musculoskeletal Musculoskeletal: Reports other Details: Left shoulder and hip pain ; Denies arthralgias or myalgias Integumentary Denies abscess or rash Neurologic Neurologic: Denies headache(s) or weakness Psychiatric Psychiatric: Denies anxiety, depression, suicidal ideation or suicidal thoughts Endocrine Endocrinology: Denies polydipsia, polyphagia or polyuria Allergic/Immunologic Allergic/Immunologic ED: Denies mouth swelling, tongue swelling or urticaria EXAM Physical Exam Narrative Exam Narrative: Patient appears to have rigors. Const Vital Signs: 12/13/21 14:00 12/13/21 14:06 12/13/21 14:11 Temperature 98.4 F 99.8 F H Temperature Source Temporal Oral Pulse Rate 107 H Respiratory Rate 24 H Respiratory Effort Normal Blood Pressure 129/73 H Blood Pressure Mean 91 Pulse Ox 93 Oxygen Delivery Method Room Air Nasal Cannula Oxygen Flow Rate (L/min) 2 12/13/21 14:37 12/13/21 15:16 12/13/21 15:55 Temperature 98.9 F 100.4 F H 101 F H Temperature Source Oral Oral Oral Pulse Rate 112 H 144 H 118 H Respiratory Rate 21 H 22 H 26 H Respiratory Effort Blood Pressure 93/38 L 130/106 H 109/58 L Blood Pressure Mean 56 114 75 Pulse Ox 93 97 97 Oxygen Delivery Method Nasal Cannula Nasal Cannula Nasal Cannula Oxygen Flow Rate (L/min) 3 3 2 12/13/21 16:07 Temperature 101.0 F H Temperature Source Oral Pulse Rate 141 H Respiratory Rate 33 H Respiratory Effort Blood Pressure 122/73 H Blood Pressure Mean 89 Pulse Ox 95 Oxygen Delivery Method Nasal Cannula Oxygen Flow Rate (L/min) 2 Positive well nourished, well developed and obese General Appearance ED: well developed Nutritional Appearance: obese HEENT Reports normocephalic, head/scalp atraumatic, TM's clear and moist mucous membranes Negative for trauma Tympanic Membrane ED: Yes TM's clear Eyes PERRL and EOMs intact bilaterally Neck no lymphadenopathy, supple and no JVD Resp normal respiratory effort and clear to auscultation bilaterally Cardio no murmurs Rate: tachycardic Rhythm: abnormal rhythm irregularly irregular GI normal to inspection, nondistended, normoactive bowel sounds and non-tender GI Narrative: Body habitus limits confident abdominal exam Palpation: soft Back/Spine no CVA tenderness and normal ROM Extremity General Extremety ED: Yes edema General Extremity: edema Neuro oriented x3 and CN's II-XII intact bilaterally Sensorium / Orientation: alert Motor Exam: strength 5/5 throughout Psych mental status grossly normal Mood & Affect: Negative for depressed or tearful Skin Skin Narrative: There is some yeast candidiasis in the abdominal skin folds MDM MDM MDM Narrative Medical decision making narrative: Basic labs showed a white count of 7.4 with a platelet count of 112. His INR is 2.1. BUN 19 with creatinine 0.81. Lactic acid elevated 2.2. My trepidation of the chest x-ray is a left lower lobe infiltrate. My interpretation of the plain films of the left hip is an acute femoral neck fracture. My interpretation of the plain films of the humerus acute fracture through the surgical neck. Patient dropped his blood pressure and received IV fluids which has improved. He became febrile at 101 and received Tylenol. Rocephin and azithromycin were administered. I spoke with Dr. Oakes from orthopedics and Dr. Pascal from internal medicine. Plan is admission Lab Data Attestation: I reviewed the patient's lab results. Labs: Laboratory Results - last 24 hr 12/13/21 12/13/21 12/13/21 14:28 14:28 14:28 WBC 7.4 RBC 4.31 L Hgb 12.9 L Hct 38.0 L MCV 88.2 MCH 29.9 MCHC 33.9 RDW Std Deviation 43.6 RDW Coeff of Dick 13.5 Plt Count 112 L MPV 9.6 Immature Gran % (Auto) 1.100 H Neut % (Auto) 85.3 H Lymph % (Auto) 6.6 L [place] % (Auto) 6.6 Eos % (Auto) 0.3 Baso % (Auto) 0.1 Absolute Neuts (auto) 6.3 Absolute Lymphs (auto) 0.49 L Nucleated RBC % 0 Poikilocytosis 1+ Ovalocytes 1+ PT 22.7 H INR 2.1 APTT 30.6 Sodium 139 Potassium 4.2 Chloride 105 Carbon Dioxide 30.0 Anion Gap 4 L BUN 19 H Creatinine 0.81 Estim Creat Clear Calc 87.82 Est GFR (MDRD) Af Amer 120 Est GFR (MDRD) Non-Af 99 BUN/Creatinine Ratio 23.5 H Glucose 118 H Lactic Acid Calcium 8.4 L Total Bilirubin 1.30 H AST 21 ALT 27 Alkaline Phosphatase 101 Troponin I High Sens 7 Total Protein 6.3 L Albumin 2.9 L Globulin 3.4 Albumin/Globulin Ratio 0.9 12/13/21 14:28 WBC RBC Hgb Hct MCV MCH MCHC RDW Std Deviation RDW Coeff of Dick Plt Count MPV Immature Gran % (Auto) Neut % (Auto) Lymph % (Auto) [place] % (Auto) Eos % (Auto) Baso % (Auto) Absolute Neuts (auto) Absolute Lymphs (auto) Nucleated RBC % Poikilocytosis Ovalocytes PT INR APTT Sodium Potassium Chloride Carbon Dioxide Anion Gap BUN Creatinine Estim Creat Clear Calc Est GFR (MDRD) Af Amer Est GFR (MDRD) Non-Af BUN/Creatinine Ratio Glucose Lactic Acid 2.2 H* Calcium Total Bilirubin AST ALT Alkaline Phosphatase Troponin I High Sens Total Protein Albumin Globulin Albumin/Globulin Ratio Radiography Diagnostic Testing: Clinical Impression(s) from Imaging Studies Hip/Pelvis X-Ray 12/13/21 14:19 IMPRESSION: Impacted transcervical fracture of the proximal left femur. Cephalic migration of the distal fracture fragment. Electronically Signed: Benjie Lieberman MD at 16:03 EST , Shoulder X-Ray 12/13/21 14:19 IMPRESSION: Nondisplaced transverse fracture of the surgical neck of the proximal left humerus. Electronically Signed: Benjie Lieberman MD at 16:01 EST , Chest X-Ray 12/13/21 15:30 IMPRESSION: Cardiomegaly. Stable examination. Electronically Signed: Benjie Lieberman MD at 16:00 EST , EKG Initial EKG: Attestation: I personally reviewed and interpreted this EKG as follows: Comments: Atrial fibrillation with rapid ventricular response at a rate of 150 bpm Discharge Plan Dx/Rx/DC Orders Clinical Impression: Atrial fibrillation with RVR, Acute hypotension, Acute febrile illness, Lactic acidosis, Closed left humeral fracture, Closed fracture of left hip, Sepsis Disposition Disposition: Acute Care [facility]
--- NOTE | 2021-12-13 14:44 | ED.RN ---
1435 bp 38, RECHECK . DO IVANNA NOTIFIED, VORB 1000ML BOLUS
[2021-12-13] MEDS: 0.9% Normal Saline 1,000 ML 999 ML IV ×2 (14:46→15:16)
[2021-12-13 14:49] LABS: Absolute Lymphocyte Count 0.49 X10^3/uL (0.83-4.51); Absolute Neutrophil Count 6.3 X10^3/uL (2.0-7.7); Basophil# 0.01 X10^3/uL; Basophil% 0.1 % (0-1); Eosinophil# 0.02 X10^3/uL; Eosinophils% 0.3 % (0-5); Hemoglobin 12.9 g/dL (13.0-16.5); Lymphocyte # 0.49 X10^3/ul (0.83-4.51); Lymphocyte % 6.6 % (19-41); Mean Corp Hgb Conc 33.9 g/dL (32-36); Mean Corpuscular Hgb 29.9 pg (27.0-32.0); Mean Corpuscular Volume 88.2 fL (80-94); Mean Platelet Vol. 9.6 fl (6.2-12.0); Monocyte# 0.49 X10^3/uL; Monocyte% 6.6 % (0-10); NRBC Flagged by Analyzer 0 % (0-5); Neutrophil # 6.29 X10^3/uL (2.7-7.7); Neutrophil % 85.3 % (47-70); POSITIVE DIFFERENTIAL YES; Platelet Count 112 K/mm3 (150-450); RBC Distribution Width CV 13.5 % (11.6-14.6); RBC Distribution Width SD 43.6 fl (35.1-43.9); Red Blood Count 4.31 M/mm3 (4.6-6.2); White Blood Count 7.4 K/mm3 (4.4-11.0)
[2021-12-13 14:50] LABS: Differential Indicated SCAN CRITERIA MET
--- NOTE | 2021-12-13 14:51 | ED.RN ---
1451 BP 86/26, HR 136, RR 25. DO GONCALVES CALLED TO BEDSIDE. VORB PRESSURE INFUSER BAGS Charles. LAURIE RN AT BEDSIDE TO ASSIST WITH IV ACCESS 2
[2021-12-13 14:55] LABS: International Normalized Ratio 2.1; Partial Thromboplast Time 30.6 Seconds (24.1-36.2); Prothrombin Time (Protime)PT. 22.7 SECONDS (11.7-14.9)
--- NOTE | 2021-12-13 14:56 | EKG12_ITS ---
Test Reason : FALL Blood Pressure : / mmHG Vent. Rate : 150 BPM Atrial Rate : 375 BPM P-R Int : 000 ms QRS Dur : 084 ms QT Int : 340 ms P-R-T Axes : 000 018 -55 degrees QTc Int : 537 ms Atrial fibrillation with premature ventricular or aberrantly conducted complexes Abnormal ECG Confirmed by ABDIAS SIMON, JACKIE ([id number]), slot editor DEIRDRE BALTAZAR ([id number]) on 12/16/2021 12:57:39 PM Referred By: Confirmed By:JACKIE CALERO MD
[2021-12-13 15:04] LABS: ALB/GLOB Ratio 0.9 RATIO (0.9-2.4); AST(SGOT) 21 U/L (15-37); Alanine Aminotransfer ALT/SGPT 27 U/L (16-61); Albumin, Serum 2.9 g/dL (3.2-5.0); Alkaline Phosphatase 101 U/L (45-117); Anion Gap 4 (5-15); BUN 19 mg/dL (7-18); BUN/Creat Ratio 23.5 RATIO (10-20); Calcium,Total 8.4 mg/dL (8.5-10.1); Chloride 105 mmol/L (98-107); Creatinine, Serum 0.81 mg/dL (0.70-1.30); EST Glomerular Filtration Rate 99 mL/min (>60); Est Glom Filt Rate - Afr Amer 120 mL/min (>60); Estimated Creatinine Clearance 87.82 ml/min; Globulin 3.4 g/dL (2.2-4.2); Glucose 118 mg/dL (74-106); Potassium 4.2 mmol/L (3.5-5.1); Protein, Total 6.3 g/dL (6.4-8.2); Sodium Level 139 mmol/L (136-145); Troponin-I HS 7 pg/mL (3.0-78.0)
[2021-12-13 15:05] LABS: Ovalocyte 1+; Poikilocytosis 1+
[2021-12-13] MEDS: Acetaminophen 500 MG Tablet 1000 MG PO (15:21)
[2021-12-13 15:22] LABS: Lactic Acid 2.2 mmol/L (0.4-1.9)
[2021-12-13] MEDS: Ondansetron 4 MG/2 ML Vial IV (15:22)
[2021-12-13] MEDS: fentaNYL 100 MCG/2 ML Ampul 50 MCG IV (15:23)
--- NOTE | 2021-12-13 15:30 | RAD_ITS ---
STUDY: X-RAY CHEST REASON FOR EXAM: Male, 76 years old. Hypoxia TECHNIQUE: Single AP portable view of the chest. COMPARISON: Comparison is made with prior study dated 11/25/2021. FINDINGS: The lungs are clear and expanded. There is no demonstrated pleural abnormality. Sternal cerclage wires and vascular clips are present from a prior sternotomy and coronary artery bypass graft procedure (CABG). Moderate sized cardiomegaly. Normal mediastinum and parul. Normal visualized pulmonary arteries. Normal visualized aortic arch and descending thoracic aorta. Prior intraventricular screw fixation at multiple levels. Normal visualized ribs, clavicles, and shoulders. There is no demonstrated abnormality of the visualized soft tissue structures of the upper abdomen. RAD/Chest 1 View (Portable) IMPRESSION: Cardiomegaly. Stable examination. Electronically Signed: Benjie Lieberman MD at 16:00 EST ,
[2021-12-13 16:13] LABS: Bacteria 0 SEEN /hpf (None Seen); Mucous, Urine 0 SEEN /hpf (<or=2+); Red Blood Cells-Urine 0 SEEN /hpf (0-5); Squamous Epithelial Cells - UA 0 SEEN /hpf (0-5); White Blood Cells 0 SEEN /hpf (0-5)
[2021-12-13] MEDS: Ceftriaxone 1 GM/50 ML BAG IV (16:13)
--- NOTE | 2021-12-13 16:24 | NURSING ---
PCU KOTSONIS LEFT HIP FRACTURE, SEPSIS, PNEUMONIA
--- NOTE | 2021-12-13 16:38 | HP.PCM.HOS_ITS ---
Documented by User: Александр MERCADO 12/13/21 17:24 HPI - General General Date of Admission: 12/13/21 Date of Service: 12/13/21 Chief Complaint: Fall HPI Narrative MEENAKSHI NI is a 76-year-old male who presents to the ED at [facility] on 12/13/2021 with a chief complaint of fall and subsequent left hip and shoulder pain. Patient reports that he was attempting to sit in his chair when he missed it and fell off the side, patient reports that he was immediately unable to get up due to associated pain. Patient denies any head trauma or loss of consciousness. On exam it was noticed that patient was shivering and chilled, patient denied any other associated infectious symptoms to include shortness of breath, hemoptysis, sputum production, fever, or N/V/D. Patient's vitals in the ED were all elevated temperature was 101.0 ?F, HR of 120, BP of 110/96, RR of 28 and patient was satting at 95% on 2 L via nasal cannula. CBC is unremarkable and does not demonstrate a leukocytosis. Electrolytes are within normal limits, although lactic acid is elevated at 2.2. Chest x-ray demonstrates cardiomegaly with possible left lower lobe infiltrate. X-ray of the left shoulder demonstrates nondisplaced transverse fracture of the neck of the proximal left humerus. Hip and pelvic x-ray demonstrates impacted transcervical fracture of the proximal left femur. Rapid Covid and influenza panel are negative. [facility] Medical History Atherosclerotic heart disease of [place] coronary artery without angina pectoris Essential hypertension Former tobacco use Fracture of ninth thoracic vertebra (12/27/18) History of Clostridium difficile infection (01/09/19) History of subdural hematoma (post traumatic) (12/27/18) Hyperlipidemia skilled nursing (current) use of anticoagulants Longstanding persistent atrial fibrillation Sepsis Traumatic hemothorax (12/30/18) Home Medications atorvastatin 80 mg PO QHS 04/02/16 [History Last Taken 11/24/21 22:00 80 mg] potassium chloride 20 mEq tablet,extended release 20 meq PO DAILY 12/03/18 [History Last Taken 11/25/21 10:00 20 meq] cetirizine 10 mg PO DAILY 12/27/18 [History Last Taken 11/25/21 10:00 10 mg] acetaminophen 325 mg tablet 650 mg PO PRN PRN tab 03/09/19 [History Last Taken 11/24/21 21:00 650] cromolyn 5.2 mg/spray (4 %) nasal spray 2 spray INTRANASAL DAILY ml 03/09/19 [History Last Taken 11/25/21 10:00 2 sprays] metoprolol tartrate 50 mg tablet 50 mg PO BID 03/15/19 [History Last Taken 10:00 50 mg] terazosin 10 mg capsule 10 mg PO QHS 03/15/19 [History Last Taken 11/24/21 22:00 10 mg] leuprolide (3 month) 22.5 mg (3 month) intramuscular syringe kit 11.25 mg IM [id number] 04/23/20 [History Last Taken 08/26/21] losartan 100 mg tablet 100 mg PO DAILY 04/23/20 [History Last Taken 11/25/21 10:00 100] cholecalciferol (vitamin D3) 1,250 mcg (50,000 unit) capsule 1,000 unit PO DAILY cap 10/29/20 [History Last Taken 11/24/21 22:00 1000 units] enzalutamide 160 mg PO DAILY 01/05/21 [History Last Taken 11/24/21 22:00 160 mg] warfarin 7.5 mg PO DAILY 11/25/21 [History Last Taken 11/24/21 21:00 7.5mg] guaifenesin [Mucus Relief ER] 600 mg PO BID #20 tab 12/02/21 [Rx Last Taken Unkn own] nystatin [Nyamyc] 1 applic TOPICAL BID 7 Days g 12/02/21 [Rx Last Taken Unknown] Allergy/AdvReac Type Severity Reaction Status Date / Time amiodarone AdvReac Intermediate It did not Verified 11/25/21 12:16 work, also bad dreams and neuropathy Family History Father , Age 57 Myocardial infarction CAD (coronary artery disease) ETOH abuse Mother , Age 47, of bone cancer Bone cancer Brother , age 45, of AIDS AIDS (acquired immune deficiency syndrome) Surgical History H/O cervical spine surgery (01/2020) H/O coronary artery bypass surgery (11/26/98) History of left heart catheterization (11/26/98) History of thoracic spinal fusion (12/30/18) Social History Smoking Status: Former smoker substance use type: does not use ROS Constitutional Constitutional: Reports chills and weakness; Denies anorexia, change in weight, fatigue, fever(s), malaise, night sweats or other Eyes Eyes: Denies blurry vision, change in eye color, change in vision, discharge from eye(s), double vision, erythema, eye pain, loss of vision or other ENT HEENT: Denies abnormal hearing, dysphagia, ear pain, epistaxis, headache(s), hearing loss, nasal congestion, nasal discharge, post nasal drip, sinus pressure, sore throat or other Cardiovascular Cardiovascular: Denies chest pain, claudication, dyspnea on exertion, edema, lightheadedness, orthopnea, palpitations, paroxysmal nocturnal dyspnea, rapid heart rate, syncope or other Respiratory/Chest Respiratory/Chest: Denies cough, dyspnea, excessive phlegm production, hemoptysis, productive cough, shortness of breath at rest, shortness of breath with exertion, wheezing or other Gastrointestinal Gastrointestinal: Denies abdominal pain, coffee ground emesis, constipation, diarrhea, dyspepsia, hematemesis, hematochezia, loose stools, melena, nausea, vomiting or other Genitourinary Genitourinary: Denies burning urination, difficulty urinating, dysuria, hematuria, nocturia, urinary frequency, urinary hesitancy, urinary incontinence, urinary urgency or other Musculoskeletal Musculoskeletal: Reports joint pain, joint stiffness and neck pain; Denies arthralgias, back pain, joint swelling, myalgias or other Neurologic Neurologic: Denies abnormal gait, abnormal speech, confusion, disequilibrium, dizziness, focal weakness, headache(s), numbness, paresthesias, seizure-like activity, seizures, syncope, tingling, tremor(s) or other Psychiatric Psychiatric: Denies anxiety, depression, homicidal ideation, suicidal ideation or other Endocrine Endocrinology: Denies change in body appearance, cold intolerance, excessive sweating, heat intolerance, polydipsia, polyuria or other Hematologic/Lymphatic Hematologic/Lymphatic: Denies anemia, easy bleeding, easy bruising, lymphadenopathy or other Vital Signs Vital Signs Vital Signs: 12/13/21 14:00 12/13/21 14:06 12/13/21 14:11 Temperature 98.4 F 99.8 F H Temperature Source Temporal Oral Pulse Rate 107 H Respiratory Rate 24 H Respiratory Effort Normal Blood Pressure 129/73 H Blood Pressure Mean 91 Pulse Ox 93 Oxygen Delivery Method Room Air Nasal Cannula Oxygen Flow Rate (L/min) 2 12/13/21 14:37 12/13/21 15:16 12/13/21 15:55 Temperature 98.9 F 100.4 F H 101 F H Temperature Source Oral Oral Oral Pulse Rate 112 H 144 H 118 H Respiratory Rate 21 H 22 H 26 H Respiratory Effort Blood Pressure 93/38 L 130/106 H 109/58 L Blood Pressure Mean 56 114 75 Pulse Ox 93 97 97 Oxygen Delivery Method Nasal Cannula Nasal Cannula Nasal Cannula Oxygen Flow Rate (L/min) 3 3 2 12/13/21 16:07 12/13/21 16:21 Temperature 101.0 F H 101.0 F H Temperature Source Oral Oral Pulse Rate 141 H 121 H Respiratory Rate 33 H 28 H Respiratory Effort Blood Pressure 122/73 H 110/96 H Blood Pressure Mean 89 100 Pulse Ox 95 95 Oxygen Delivery Method Nasal Cannula Nasal Cannula Oxygen Flow Rate (L/min) 2 2 Weight Weight: 302 lb 14.642 oz Body Mass Index (BMI) 41.1 Physical Exam Const alert and oriented x3 General Appearance: cooperative HEENT normocephalic, head/scalp atraumatic and hearing grossly normal bilaterally Eyes PERRL, EOMs intact bilaterally and conjunctivae normal Neck no lymphadenopathy, supple and no JVD Resp Effort and Inspection: tachypneic, respiratory distress and labored Auscultation: diminished lung sounds Cardio Rate: tachycardic Rhythm: abnormal rhythm GI normal to inspection, nondistended, normoactive bowel sounds, soft to palpation and non-tender Extremity normal to inspection, full ROM and no clubbing, cyanosis or edema Skin no rashes or lesions noted, no wounds and skin turgor normal Neuro CN's II-XII intact bilaterally Psych affect normal Results Lab / Micro Data Result Diagrams: 12/13/21 14:28 12/13/21 14:28 Labs: Laboratory Results - last 24 hr 12/13/21 14:28: WBC 7.4, RBC 4.31 L, Hgb 12.9 L, Hct 38.0 L, MCV 88.2, MCH 29.9, MCHC 33.9, RDW Std Deviation 43.6, RDW Coeff of Dick 13.5, Plt Count 112 L, MPV 9.6, Immature Gran % (Auto) 1.100 H, Neut % (Auto) 85.3 H, Lymph % (Auto) 6.6 L, [place] % (Auto) 6.6, Eos % (Auto) 0.3, Baso % (Auto) 0.1, Absolute Neuts (auto) 6.3, Absolute Lymphs (auto) 0.49 L, Nucleated RBC % 0, Poikilocytosis 1+, Ovalocytes 1+ 12/13/21 14:28: PT 22.7 H, INR 2.1, APTT 30.6 12/13/21 14:28: Sodium 139, Potassium 4.2, Chloride 105, Carbon Dioxide 30.0, Anion Gap 4 L, BUN 19 H, Creatinine 0.81, Estim Creat Clear Calc 87.82, Est GFR (MDRD) Af Amer 120, Est GFR (MDRD) Non-Af 99, BUN/Creatinine Ratio 23.5 H, Glucose 118 H, Calcium 8.4 L, Total Bilirubin 1.30 H, AST 21, ALT 27, Alkaline Phosphatase 101, Troponin I High Sens 7, Total Protein 6.3 L, Albumin 2.9 L, Globulin 3.4, Albumin/Globulin Ratio 0.9 12/13/21 14:28: Lactic Acid 2.2 H* Micro: Microbiology 12/13/21 15:12 Mucosa - Nasopharyngeal Influenza Types A,B Direct FA ([facility]) - Final 12/13/21 15:12 Nasal Secretion SARS-CoV-2 Antigen (Rapid) - Final Radiology Impression Hip/Pelvis X-Ray 12/13/21 14:19 IMPRESSION: Impacted transcervical fracture of the proximal left femur. Cephalic migration of the distal fracture fragment. Electronically Signed: Benjie Lieberman MD at 16:03 EST , Shoulder X-Ray 12/13/21 14:19 IMPRESSION: Nondisplaced transverse fracture of the surgical neck of the proximal left humerus. Electronically Signed: Benjie Lieberman MD at 16:01 EST , Chest X-Ray 12/13/21 15:30 IMPRESSION: Cardiomegaly. Stable examination. Electronically Signed: Benjie Lieberman MD at 16:00 EST , Assessment & Plan Assessment/Plan (1) Atrial fibrillation with RVR: (2) Acute febrile illness: (3) Lactic acidosis: (4) Closed left humeral fracture: (5) Closed fracture of left hip: (6) Sepsis: (7) Acute hypotension: PLAN: Patient is a 76-year-old male who was admitted to [facility] on 12/13/2021 with a chief complaint of fall with subsequent left shoulder and left hip pain. Patient will be admitted for evaluation and management of shoulder and hip fracture as well as possible community-acquired pneumonia. 1) fall with associated left humeral and left hip fracture. Shoulder x-ray demonstrates nondisplaced transverse fracture of the surgical neck of the proximal left humerus, x-ray of the hip and pelvis demonstrates impacted transcervical fracture of the proximal left femur. According to the NSQIP surgical risk calculator, patient has an above average surgical risk. Dr. Oakes consulted, PT/OT eval ordered, case management consult ordered. 2) sepsis secondary to possible community-acquired pneumonia Patient's vital signs in the ED met SIRS criteria for sepsis with tachycardia, fever, tachypnea, hypotension and elevated lactate. Chest x-ray showed possible left lower lobe infiltrate. Patient is without any respiratory symptoms although does display chills and shivering on my examination. Denies any respiratory symptoms to include hemoptysis, shortness of breath or sputum prod uction. Denies fever or N/V/D. UA and rapid Covid negative. Influenza panel negative. Initiate ceftriaxone and azithromycin, blood cultures ordered/pending, sputum culture ordered. 3) new onset A. fib with RVR EKG obtained in the ED demonstrated A. fib with RVR. A. fib not noted in medical history, although patient is on metoprolol. [id number] score is 4. Admit to PCU for cardiac monitoring. 4) hypotension Patient had a transient episode of hypotension in the ED at 93/38, fluid bolus given in the ED. Currently 119/51, will continue to monitor. DVT prophylaxis - SCDs CODE STATUS: Full code Patient seen by Александр Bhakta PA-C, under the supervision of Dr. Pascal. Time spent on patient care: 25 minutes. Documented by User: Dr. Koby Pascal MD 12/13/21 18:19 HPI - General General Date of Admission: 12/13/21 [facility] Medical History Atherosclerotic heart disease of [place] coronary artery without angina pectoris Essential hypertension Former tobacco use Fracture of ninth thoracic vertebra (12/27/18) History of Clostridium difficile infection (01/09/19) History of subdural hematoma (post traumatic) (12/27/18) Hyperlipidemia skilled nursing (current) use of anticoagulants Longstanding persistent atrial fibrillation Sepsis Traumatic hemothorax (12/30/18) Home Medications atorvastatin 80 mg PO QHS 04/02/16 [History Last Taken 11/24/21 22:00 80 mg] potassium chloride 20 mEq tablet,extended release 20 meq PO DAILY 12/03/18 [History Last Taken 11/25/21 10:00 20 meq] cetirizine 10 mg PO DAILY 12/27/18 [History Last Taken 11/25/21 10:00 10 mg] acetaminophen 325 mg tablet 650 mg PO PRN PRN tab 03/09/19 [History Last Taken 11/24/21 21:00 650] cromolyn 5.2 mg/spray (4 %) nasal spray 2 spray INTRANASAL DAILY ml 03/09/19 [History Last Taken 11/25/21 10:00 2 sprays] metoprolol tartrate 50 mg tablet 50 mg PO BID 03/15/19 [History Last Taken 11/25/21 10:00 50 mg] terazosin 10 mg capsule 10 mg PO QHS 03/15/19 [History Last Taken 11/24/21 22:00 10 mg] leuprolide (3 month) 22.5 mg (3 month) intramuscular syringe kit 11.25 mg IM [id number] 04/23/20 [History Last Taken 08/26/21] losartan 100 mg tablet 100 mg PO DAILY 04/23/20 [History Last Taken 11/25/21 10:00 100] cholecalciferol (vitamin D3) 1,250 mcg (50,000 unit) capsule 1,000 unit PO DAILY cap 10/29/20 [History Last Taken 11/24/21 22:00 1000 units] enzalutamide 160 mg PO DAILY 01/05/21 [History Last Taken 11/24/21 22:00 160 mg] warfarin 7.5 mg PO DAILY 11/25/21 [History Last Taken 11/24/21 21:00 7.5mg] guaifenesin [Mucus Relief ER] 600 mg PO BID #20 tab 12/02/21 [Rx Last Taken Unknown] nystatin [Nyamyc] 1 applic TOPICAL BID 7 Days g 12/02/21 [Rx Last Taken Unknown] Allergy/AdvReac Type Severity Reaction Status Date / Time amiodarone AdvReac Intermediate It did not Verified 11/25/21 12:16 work, also bad dreams and neuropathy Family History Father , Age 57 Myocardial infarction CAD (coronary artery disease) ETOH abuse Mother , Age 47, of bone cancer Bone cancer Brother , age 45, of AIDS AIDS (acquired immune deficiency syndrome) Surgical History H/O cervical spine surgery (01/2020) H/O coronary artery bypass surgery (11/26/98) History of left heart catheterization (11/26/98) History of thoracic spinal fusion (12/30/18) Social History Smoking Status: Former smoker substance use type: does not use Results Lab / Micro Data Result Diagrams: 12/13/21 14:28 12/13/21 14:28 Charges/Coding Addendum Addendum: Dr. Pascal: I personally reviewed the chart and examined the patient, and agree with the above findings. 76-year-old male who been recently admitted to the hospital secondary to a fall leading to an L4 fracture. At that time he was offered transfer to the [facility] which he declined. He has not had any definitive treatment for this L4 fracture. He presents today after another fall he was trying to sit down in the chair and missed and he developed left hip pain and left arm pain consistent with a humeral fracture and a femoral fracture. The humeral fracture is nonoperative however the hip fracture will need to be repaired. He denies any significant shortness of breath at home or feeling ill other than having some borderline elevation in his temperatures. While here in the ER he did have temperatures over 100 and chest x-ray was read as normal but there is the possibility of an infiltrate on my read as well as and on the read of the ED physician so despite the fact he does have a leukocytosis, given his need for 2 L of oxygen now as well as recent Covid infection which could lead to a bacterial infection and his elevated lactic acid, he was started on Rocephin and azithromycin. He was also found to be in RVR from his A. fib will continue with his home metoprolol and adjust the dosing as necessary. Given his need for hip surgery, will hold his Coumadin and recheck his INR in the morning if necessary can give him 5 mg of IV vitamin K. In the ER he was given 2 L of fluids, and given his history of coronary artery disease we will see if he is able to remain hydrated with p.o. intake if not can put him on gentle IV fluids. Clinical care time spent in all aspects of patient care: 50 minutes Visit Charges Inpatient E&M: [id number] Init Hosp L3
[2021-12-13 16:51] LABS: Color, Urine Yellow (Yellow); Glucose, Dipstick Normal (Normal); Ketone-Dipstick Negative (Negative); Leukocyte Esterase-Dipstick Negative /ul (Negative); Nitrite-Dipstick Negative (Negative); Occult Blood-Urine Negative /ul (Negative); Protein-Dipstick Negative (Negative); Urine Bilirubin Dipstick Negative (Negative); Urine Clarity Clear (Clear); Urine Urobilinogen Normal (Normal)
[2021-12-13] MEDS: Metoprolol Tartrate 50 MG Tablet PO (17:43)
[2021-12-13] MEDS: Morphine 4 MG/ML Syringe IV (17:44)
[2021-12-13] MEDS: 0.9% Saline Lock 10 ML Syringe IV (17:44)
[2021-12-13 18:43] LABS: Reflex Lactate? Y
[2021-12-13 19:51] LABS: Lactic Acid 2.2 mmol/L (0.4-1.9)
[2021-12-13] MEDS: Doxazosin 4 MG Tablet 8 MG PO (22:48)
[2021-12-13] MEDS: Acetaminophen 325 MG Tablet 650 MG PO (22:49)
[2021-12-14] VITALS (14 sets, daily range): BP systolic 99–127; BP diastolic 51–80; PULSE 74–114; RESP 16–18; TEMP 36.4–37.6; O2SAT 92–98
[2021-12-14] MEDS: 0.9% Saline Lock 10 ML Syringe IV ×3 (00:29→22:00)
[2021-12-14] MEDS: Morphine 4 MG/ML Syringe IV ×5 (00:30→22:00)
[2021-12-14 04:01] LABS: Absolute Lymphocyte Count 0.71 X10^3/uL (0.83-4.51); Absolute Neutrophil Count 6.1 X10^3/uL (2.0-7.7); Basophil# 0.01 X10^3/uL; Basophil% 0.1 % (0-1); Eosinophil# 0.06 X10^3/uL; Eosinophils% 0.8 % (0-5); Hematocrit 31.9 % (40-54); Lymphocyte # 0.71 X10^3/ul (0.83-4.51); Lymphocyte % 9.4 % (19-41); Mean Corp Hgb Conc 34.5 g/dL (32-36); Mean Corpuscular Hgb 30.1 pg (27.0-32.0); Mean Corpuscular Volume 87.2 fL (80-94); Mean Platelet Vol. 9.8 fl (6.2-12.0); Monocyte# 0.63 X10^3/uL; Monocyte% 8.4 % (0-10); NRBC Flagged by Analyzer 0 % (0-5); Neutrophil % 80.9 % (47-70); POSITIVE COUNT YES; Platelet Count 99 K/mm3 (150-450); RBC Distribution Width CV 13.6 % (11.6-14.6); RBC Distribution Width SD 43.5 fl (35.1-43.9); Red Blood Count 3.66 M/mm3 (4.6-6.2); White Blood Count 7.5 K/mm3 (4.4-11.0)
[2021-12-14 04:06] LABS: Differential Indicated SCAN CRITERIA MET
[2021-12-14 04:21] LABS: Anion Gap 4 (5-15); BUN 18 mg/dL (7-18); BUN/Creat Ratio 29.1 RATIO (10-20); Calcium,Total 7.9 mg/dL (8.5-10.1); Chloride 104 mmol/L (98-107); Creatinine, Serum 0.62 mg/dL (0.70-1.30); EST Glomerular Filtration Rate 135 mL/min (>60); Est Glom Filt Rate - Afr Amer 163 mL/min (>60); Estimated Creatinine Clearance 71.13 ml/min; Glucose 108 mg/dL (74-106); Potassium 4.2 mmol/L (3.5-5.1); Sodium Level 135 mmol/L (136-145)
[2021-12-14 04:30] LABS: Differential Comment SCANNED; Platelet Estimate SLT DEC (ADEQ)
[2021-12-14] MEDS: Metoprolol Tartrate 50 MG Tablet PO ×2 (08:10→21:44)
[2021-12-14] MEDS: guaiFENesin 600 MG Tablet PO ×2 (08:10→21:44)
[2021-12-14] MEDS: Loratadine 10 MG Tablet PO (08:10)
[2021-12-14 09:41] LABS: International Normalized Ratio 2.1
--- NOTE | 2021-12-14 10:10 | CASEMGMT ---
MARIAJOSE PITT Readmission Note Previous Admission: 11/26/2021-12/02/2021 Diagnosis: weakness, unable to ambulate, COVID DC Disposition: [facility] Current Admission Current Diagnosis: Pneumonia, Afib, hip fx Pt presented to ER from home with L shoulder and hip pain. Pt went to sit on chair and missed it and fell. MARIAJOSE PITT in to pt room to discuss dc planning. Pt recently dc'd from [facility] on Thursday12/11/21. Pt states he thinks HHC was to be set up for him at home but he did not have anyone come out prior to this hospitalization. He is not aware which agency he was set up with. Pt did not require home O2 upon dc. Pt speaks very little and gives the thumbs up to answer questions. Pt states he would like to return home after this hospitalization. MARIAJOSE PITT made him aware that we will follow how he does after surgery and with therapy and discuss this further at that time. Pt screened with [facility] Palliative Care screening tool d/t readmission, he did not meet criteria. DC PLAN: TBD pending surgery, therapy and course of treatment.
[2021-12-14] MEDS: Acetaminophen 325 MG Tablet 650 MG PO (10:27)
[2021-12-14] MEDS: Ceftriaxone 1 GM/50 ML BAG IV (10:27)
--- NOTE | 2021-12-14 11:16 | PN.HOSP_ITS ---
Documented by User: Александр MERCADO 12/14/21 11:27 Subjective Subjective Patient is a 76-year-old male lying in bed, alert and orient x3. Patient still reports some left-sided hip and shoulder pain, but reports that this is currently controlled on medications. Denies development of any new symptoms overnight. Does not appear in acute distress. Objective Data Objective Data Vital Signs: Vital Signs Temp Pulse Resp BP Pulse Ox 97.9 F 74 16 127/51 H 98 12/14/21 08:02 12/14/21 08:10 12/14/21 08:02 12/14/21 08:10 12/14/21 08:02 Oxygen Flow Rate (L/min) 2 Oxygen Delivery Method Nasal Cannula Weight: 295 lb 13.765 oz Body Mass Index (BMI) 40.1 Intake & Output: Intake and Output for Last 24 Hours 12/12/21 12/13/21 12/14/21 23:59 23:59 23:59 Intake Total 2425.00 / 2475.00 50 / 50 Output Total 650 / 900 450 / 450 Balance 1775.00 / 1575.00 -400 / -400 Lab / Micro Data Result Diagrams: 12/14/21 03:21 12/14/21 09:00 Labs: Laboratory Results - last 24 hr 12/13/21 14:28: WBC 7.4, RBC 4.31 L, Hgb 12.9 L, Hct 38.0 L, MCV 88.2, MCH 29.9, MCHC 33.9, RDW Std Deviation 43.6, RDW Coeff of Dick 13.5, Plt Count 112 L, MPV 9.6, Immature Gran % (Auto) 1.100 H, Neut % (Auto) 85.3 H, Lymph % (Auto) 6.6 L, Rhea % (Auto) 6.6, Eos % (Auto) 0.3, Baso % (Auto) 0.1, Absolute Neuts (auto) 6.3, Absolute Lymphs (auto) 0.49 L, Nucleated RBC % 0, Poikilocytosis 1+, Ovalocytes 1+ 12/13/21 14:28: PT 22.7 H, INR 2.1, APTT 30.6 12/13/21 14:28: Sodium 139, Potassium 4.2, Chloride 105, Carbon Dioxide 30.0, Anion Gap 4 L, BUN 19 H, Creatinine 0.81, Estim Creat Clear Calc 87.82, Est GFR (MDRD) Af Amer 120, Est GFR (MDRD) Non-Af 99, BUN/Creatinine Ratio 23.5 H, Glucose 118 H, Calcium 8.4 L, Total Bilirubin 1.30 H, AST 21, ALT 27, Alkaline Phosphatase 101, Troponin I High Sens 7, Total Protein 6.3 L, Albumin 2.9 L, Globulin 3.4, Albumin/Globulin Ratio 0.9 12/13/21 14:28: Lactic Acid 2.2 H* 12/13/21 16:05: Urine Color Yellow, Urine Clarity Clear, Urine pH 5.0, Ur Specific Enochs 1.020, Urine Protein Negative, Urine Glucose (UA) Normal, Urine Ketones Negative, Urine Occult Blood Negative, Urine Nitrite Negative, Urine Bilirubin Negative, Urine Urobilinogen Normal, Ur Leukocyte Esterase Negative, Urine RBC 0 SEEN, Urine WBC 0 SEEN, Ur Squamous Epith Cells 0 SEEN, Urine Bacteria 0 SEEN, Urine Mucus 0 SEEN 12/13/21 19:00: Lactic Acid 2.2 H* 12/14/21 03:21: WBC 7.5, RBC 3.66 L, Hgb 11.0 L, Hct 31.9 L, MCV 87.2, MCH 30.1, MCHC 34.5, RDW Std Deviation 43.5, RDW Coeff of Dick 13.6, Plt Count 99 L, MPV 9.8, Immature Gran % (Auto) 0.400, Neut % (Auto) 80.9 H, Lymph % (Auto) 9.4 L, Rhea % (Auto) 8.4, Eos % (Auto) 0.8, Baso % (Auto) 0.1, Absolute Neuts (auto) 6.1, Absolute Lymphs (auto) 0.71 L, Nucleated RBC % 0, Differential Comment SCANNED, Platelet Estimate SLT 12/14/21 03:21: Sodium 135 L, Potassium 4.2, Chloride 104, Carbon Dioxide 27.0, Anion Gap 4 L, BUN 18, Creatinine 0.62 L, Estim Creat Clear Calc 71.13, Est GFR (MDRD) Af Amer 163, Est GFR (MDRD) Non-Af 135, BUN/Creatinine Ratio 29.1 H, Glucose 108 H, Calcium 7.9 L 12/14/21 09:00: PT 23.0 H, INR 2.1 Micro: Microbiology 12/13/21 15:12 Mucosa - Nasopharyngeal Influenza Types A,B Direct FA ([facility]ACE) - Final 12/13/21 15:12 Nasal Secretion SARS-CoV-2 Antigen (Rapid) - Final Radiography Diagnostic Testing: Radiology Impression Hip/Pelvis X-Ray 12/13/21 14:19 IMPRESSION: Impacted transcervical fracture of the proximal left femur. Cephalic migration of the distal fracture fragment. Electronically Signed: Benjie Lieberman MD at 16:03 EST , Shoulder X-Ray 12/13/21 14:19 IMPRESSION: Nondisplaced transverse fracture of the surgical neck of the proximal left humerus. Electronically Signed: Benjie Lieberman MD at 16:01 EST , Chest X-Ray 12/13/21 15:30 IMPRESSION: Cardiomegaly. Stable examination. Electronically Signed: Benjie Lieberman MD at 16:00 EST , Physical Exam Const alert, oriented x3 and no apparent distress HEENT head/scalp atraumatic and moist oral mucous membranes Head and Scalp: normocephalic Eyes PERRL, EOMs intact bilaterally and conjunctivae normal Neck no lymphadenopathy, supple and no JVD Resp normal respiratory effort, no retractions, no use of accessory muscles and clear to auscultation bilaterally Cardio regular rate and regular rhythm GI normal to inspection, nondistended, normoactive bowel sounds, soft to palpation and non-tender Extremity normal to inspection Skin no rashes or lesions noted, no wounds and skin turgor normal Neuro CN's II-XII intact bilaterally Psych affect normal Assessment & Plan Assessment/Plan (1) Atrial fibrillation with RVR: (2) Acute hypotension: (3) Acute febrile illness: (4) Lactic acidosis: (5) Closed left humeral fracture: (6) Closed fracture of left hip: (7) Sepsis: PLAN: Day 1 Discharge planning: To be determined, case management/social work following. 1) fall with associated left humeral and left hip fracture. Shoulder x-ray demonstrates nondisplaced transverse fracture of the surgical neck of the proximal left humerus, x-ray of the hip and pelvis demonstrates impacted transcervical fracture of the proximal left femur. According to the NSQIP surgical risk calculator, patient has an above average surgical risk. Surgery has been delayed till 12/16/2021 given that patient is chronically anticoagulated on Coumadin, Dr. Oakes following. 2) sepsis secondary to possible community-acquired pneumonia Tachycardia, tachypnea and febrile illness have resolved from admission. Currently satting 98% on 2 L via nasal cannula. Patient denies development of any new respiratory symptoms overnight. WBC is currently 7.5, will continue ceftriaxone and azithromycin, blood/sputum cultures ordered/pending. 3) A. fib with RVR Rate is currently controlled, patient is on metoprolol for rate control and Coumadin for anticoagulation. Coumadin held in anticipation for upcoming surgery. 4) hypotension Patient had a transient episode of hypotension in the ED at 93/38, fluid bolus given in the ED. Currently 127/51, will continue to monitor. 5) long-term anticoagulation use INR is therapeutic at 2.1. Continue to monitor. DVT prophylaxis - SCDs, anticoagulation on hold as above. Patient seen by Александр Bhakta PA-C, under the supervision of Dr. Pascal. Time spent on patient care: 9 minutes. Documented by User: Dr. Koby Pascal MD 12/14/21 14:30 Objective Data Lab / Micro Data Result Diagrams: 12/14/21 03:21 12/14/21 09:00 Charges/Coding Addendum Addendum: Dr. Pascal: I personally reviewed the chart and examined the patient, and agree with the above findings. 76-year-old male who been recently admitted to the hospital secondary to a fall leading to an L4 fracture. At that time he was offered transfer to the [facility] which he declined. He has not had any de finitive treatment for this L4 fracture. He presents today after another fall he was trying to sit down in the chair and missed and he developed left hip pain and left arm pain consistent with a humeral fracture and a femoral fracture. The humeral fracture is nonoperative however the hip fracture will need to be repaired. He denies any significant shortness of breath at home or feeling ill other than having some borderline elevation in his temperatures. While here in the ER he did have temperatures over 100 and chest x-ray was read as normal but there is the possibility of an infiltrate on my read as well as and on the read of the ED physician so despite the fact he does have a leukocytosis, given his need for 2 L of oxygen now as well as recent Covid infection which could lead to a bacterial infection and his elevated lactic acid, he was started on Rocephin and azithromycin. He was also found to be in RVR from his A. fib will continue with his home metoprolol and adjust the dosing as necessary. Given his need for hip surgery, will hold his Coumadin and recheck his INR in the morning if necessary can give him 5 mg of IV vitamin K. In the ER he was given 2 L of fluids, and given his history of coronary artery disease we will see if he is able to remain hydrated with p.o. intake if not can put him on gentle IV fluids. Clinical care time spent in all aspects of patient care: 50 minutes 12/14/2021: Doing well today, pain is little bit better controlled. He other bob feels well and has no issues. INR is elevated 2.1 therefore we will give him a dose of vitamin K today and check his INR little bit later this afternoon if is not trending down may need to give him another 1 prior to surgery in the morning. Still requiring about 2 L nasal cannula will continue to hold off IV fluids and encourage p.o. intake. Also continue with his antibiotics for now, he is can receive a dose of Ancef prior to surgery for his hip repair. Clinical time spent in all aspects of patient care: 18 minutes
--- NOTE | 2021-12-14 12:20 | CON.PCM.OR_ITS ---
HPI Consult Data Date of Consult: 12/14/21 HPI Narrative HPI Narrative: MEENAKSHI NI, is a 76 M who presents to [facility] 12/13/2021 after he attempted to sit into his chair, missing the chair and falling onto his left side. He was unable to get up secondary to the pain. He denies any other associated injury. Denies any head trauma or loss cons ciousness. Upon examination, patient was febrile with a temperature of 101.0 ?F, heart rate of 120, BP of 110/96, respiratory rate of 28 and satting 95% on 2 L nasal cannula. Patient was treated for suspected acute sepsis secondary to pneumonia with IV antibiotics and fluids. He was admitted under the service of the hospitalist. X-rays emerged part revealed a left femoral neck fracture, displaced as well as a minimally displaced left surgical neck fracture of the proximal humerus. I was consulted for recommendations regarding his fracture. At time my examination, patient denies any feelings of generalized illness including fevers, chills, nausea vomiting, chest pain or shortness of breath. He denied any new pains beside his left hip pain and shoulder. Of note, patient sustained a L4 body fracture 11/25/2021. MRI was obtained and reviewed by Dr. Rm. Urgent surgery was not recommended at that time. He has not been in any sort of brace. Patient denies any change in his back pain since this new fall. Denies any numbness or tingling in his lower extremities. Denies any bowel or bladder changes. Denies any saddle anesthesia. 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 Longstanding persistent atrial fibrillation Sepsis Traumatic hemothorax (12/30/18) Home Medications atorvastatin 80 mg PO QHS 04/02/16 [History Last Taken 11/24/21 22:00 80 mg] potassium chloride 20 mEq tablet,extended release 20 meq PO DAILY 12/03/18 [History Last Taken 11/25/21 10:00 20 meq] cetirizine 10 mg PO DAILY 12/27/18 [History Last Taken 11/25/21 10:00 10 mg] acetaminophen 325 mg tablet 650 mg PO Q4H PRN PRN tab 03/09/19 [History Last Taken 11/24/21 21:00 650] cromolyn 5.2 mg/spray (4 %) nasal spray 2 spray INTRANASAL DAILY ml 03/09/19 [History Last Taken 11/25/21 10:00 2 sprays] metoprolol tartrate 50 mg tablet 50 mg PO BID 03/15/19 [History Last Taken 11/25/21 10:00 50 mg] terazosin 10 mg capsule 10 mg PO QHS 03/15/19 [History Last Taken 11/24/21 22:00 10 mg] leuprolide (3 month) 22.5 mg (3 month) intramuscular syringe kit 11.25 mg IM [id number] 04/23/20 [History Last Taken 08/26/21] losartan 100 mg tablet 100 mg PO DAILY 04/23/20 [History Last Taken 11/25/21 10:00 100] cholecalciferol (vitamin D3) 1,250 mcg (50,000 unit) capsule 1,000 unit PO DAILY cap 10/29/20 [History Last Taken 11/24/21 22:00 1000 units] enzalutamide 160 mg PO DAILY 01/05/21 [History Last Taken 11/24/21 22:00 160 mg] warfarin 7.5 mg PO DAILY 11/25/21 [History Last Taken 11/24/21 21:00 7.5mg] guaifenesin [Mucus Relief ER] 600 mg PO BID #20 tab 12/02/21 [Rx Last Taken Unknown] dexamethasone 6 mg PO DAILY 12/14/21 [History Last Taken Unknown] doxazosin 8 mg PO DAILY 12/14/21 [History Last Taken Unknown] nystatin [Nyamyc] 1 applic TOPICAL BID 12/14/21 [History Last Taken Unknown] Allergy/AdvReac Type Severity Reaction Status Date / Time amiodarone AdvReac Intermediate It did not Verified 11/25/21 12:16 work, also bad dreams and neuropathy Family History Father , Age 57 Myocardial infarction CAD (coronary artery disease) ETOH abuse Mother , Age 47, of bone cancer Bone cancer Brother , age 45, of AIDS AIDS (acquired immune deficiency syndrome) Surgical History H/O cervical spine surgery (01/2020) H/O coronary artery bypass surgery (11/26/98) History of left heart catheterization (11/26/98) History of thoracic spinal fusion (12/30/18) Social History Smoking Status: Former smoker substance use type: does not use ROS ROS Narrative 12 point review systems obtained, negative unless otherwise noted in HPI. Vital Signs Vital Signs Vital Signs: 12/13/21 14:00 12/13/21 14:06 12/13/21 14:11 Temperature 98.4 F 99.8 F H Temperature Source Temporal Oral Pulse Rate 107 H Pulse Strength Respiratory Rate 24 H Respiratory Effort Normal Respiratory Depth Respiratory Pattern Blood Pressure 129/73 H Blood Pressure Mean 91 Blood Pressure Source Blood Pressure Position Blood Pressure Location Pulse Ox 93 Oxygen Delivery Method Room Air Nasal Cannula Oxygen Flow Rate (L/min) 2 12/13/21 14:37 12/13/21 15:16 12/13/21 15:55 Temperature 98.9 F 100.4 F H 101 F H Temperature Source Oral Oral Oral Pulse Rate 112 H 144 H 118 H Pulse Strength Respiratory Rate 21 H 22 H 26 H Respiratory Effort Respiratory Depth Respiratory Pattern Blood Pressure 93/38 L 130/106 H 109/58 L Blood Pressure Mean 56 114 75 Blood Pressure Source Blood Pressure Position Blood Pressure Location Pulse Ox 93 97 97 Oxygen Delivery Method Nasal Cannula Nasal Cannula Nasal Cannula Oxygen Flow Rate (L/min) 3 3 2 12/13/21 16:07 12/13/21 16:21 12/13/21 16:57 Temperature 101.0 F H 101.0 F H 98.9 F Temperature Source Oral Oral Oral Pulse Rate 141 H 121 H 120 H Pulse Strength Respiratory Rate 33 H 28 H 18 Respiratory Effort Respiratory Depth Respiratory Pattern Blood Pressure 122/73 H 110/96 H 119/51 L Blood Pressure Mean 89 100 73 Blood Pressure Source Monitor Blood Pressure Position Semi-Fowlers Blood Pressure Location Right Forearm Pulse Ox 95 95 94 Oxygen Delivery Method Nasal Cannula Nasal Cannula Nasal Cannula Oxygen Flow Rate (L/min) 2 2 2 12/13/21 17:00 12/13/21 17:43 12/13/21 17:50 Temperature Temperature Source Pulse Rate 136 H 128 H Pulse Strength Respiratory Rate Respiratory Effort Normal Non-Labored Respiratory Depth Normal Respiratory Pattern Normal Blood Pressure 119/51 L Blood Pressure Mean Blood Pressure Source Blood Pressure Position Blood Pressure Location Pulse Ox Oxygen Delivery Method Nasal Cannula Oxygen Flow Rate (L/min) 2 12/13/21 18:29 12/13/21 18:59 12/13/21 22:30 Temperature 98.2 F Temperature Source Oral Pulse Rate 98 96 Pulse Strength Weak (1+) Respiratory Rate 18 Respiratory Effort Normal Non-Labored Respiratory Depth Normal Respiratory Pattern Normal Blood Pressure 135/63 H Blood Pressure Mean 87 Blood Pressure Source Monitor Blood Pressure Position Semi-Fowlers Blood Pressure Location Right Forearm Pulse Ox 96 Oxygen Delivery Method Nasal Cannula Nasal Cannula Oxygen Flow Rate (L/min) 2 2 12/13/21 22:34 12/13/21 22:35 12/14/21 00:26 Temperature 100.2 F H 98.6 F Temperature Source Oral Oral Pulse Rate 95 88 Pulse Strength Respiratory Rate 18 18 Respiratory Effort Respiratory Depth Respiratory Pattern Blood Pressure 105/52 L 105/53 L Blood Pressure Mean 69 70 Blood Pressure Source Monitor Monitor Blood Pressure Position Semi-Fowlers Semi-Fowlers Blood Pressure Location Right Forearm Right Forearm Pulse Ox 94 94 95 Oxygen Delivery Method Nasal Cannula Nasal Cannula Nasal Cannula Oxygen Flow Rate (L/min) 2 2 2 12/14/21 02:59 12/14/21 06:21 12/14/21 07:15 Temperature 98.4 F Temperature Source Oral Pulse Rate 90 79 Pulse Strength Respiratory Rate 16 Respiratory Effort Respiratory Depth Respiratory Pattern Blood Pressure 99/55 L Blood Pressure Mean 69 Blood Pressure Source Monitor Blood Pressure Position Semi-Fowlers Blood Pressure Location Right Forearm Pulse Ox 96 92 Oxygen Delivery Method Nasal Cannula Nasal Cannula Oxygen Flow Rate (L/min) 2 2 12/14/21 07:29 12/14/21 08:02 12/14/21 08:10 Temperature 97.9 F Temperature Source Temporal Pulse Rate 79 74 74 Pulse Strength Respiratory Rate 16 Respiratory Effort Normal Non-Labored Respiratory Depth Normal Respiratory Pattern Normal Blood Pressure 127/51 H 127/51 H Blood Pressure Mean 76 Blood Pressure Source Monitor Blood Pressure Position Semi-Fowlers Blood Pressure Location Right Forearm Pulse Ox 98 Oxygen Delivery Method Nasal Cannula Nasal Cannula Oxygen Flow Rate (L/min) 2 2 12/14/21 10:00 Temperature Temperature Source Pulse Rate Pulse Strength Weak (1+) Respiratory Rate Respiratory Effort Respiratory Depth Respiratory Pattern Blood Pressure Blood Pressure Mean Blood Pressure Source Blood Pressure Position Blood Pressure Location Pulse Ox Oxygen Delivery Method Oxygen Flow Rate (L/min) Weight Weight: 295 lb 13.765 oz Body Mass Index (BMI) 40.1 Physical Exam Narrative General -A&Ox3, NAD, appears stated age. Vital signs stable, afebrile. Respiratory -normal work of breathing, no intercostal retractions. CV -pulses regular, brisk capillary refill ?4 limbs. Abdomen-soft, nontender, nondistended. No guarding, rigidity, rebound tenderness. Musculoskeletal/neurologic -full range of motion nontender throughout right upper extremity, right lower extremity with full sensation and strength in all dermatomes and myotomes. No midline cervical tenderness. Left lower extremity-no obvious deformity. Pain with logroll of the left lower extremity. Nontender throughout the left knee femoral shaft, tibial shaft and left foot/ankle. Brisk capillary refill. Sensation intact light touch L3-S1 dermatomes. DF, PF, EHL intact. DP, PT 2+. Pelvis is stable, nontender. Skin is intact without lacerations, abrasions. No ecchymosis noted. Left upper extremity-tenderness palpation of about the left shoulder/proximal humerus. Sensation intact in C5-T1 dermatomes. Axillary nerve appears to be intact along the deltoid to fire on command. Palpable radial pulse with brisk capillary refill in the fingertips. Cardinal motions of the left hand are intact. Lab / Micro Data Result Diagrams: 12/14/21 03:21 12/14/21 03:21 Labs: Laboratory Results - last 24 hr 12/13/21 14:28: WBC 7.4, RBC 4.31 L, Hgb 12.9 L, Hct 38.0 L, MCV 88.2, MCH 29.9, MCHC 33.9, RDW Std Deviation 43.6, RDW Coeff of Dick 13.5, Plt Count 112 L, MPV 9.6, Immature Gran % (Auto) 1.100 H, Neut % (Auto) 85.3 H, Lymph % (Auto) 6.6 L, [place] % (Auto) 6.6, Eos % (Auto) 0.3, Baso % (Auto) 0.1, Absolute Neuts (auto) 6.3, Absolute Lymphs (auto) 0.49 L, Nucleated RBC % 0, Poikilocytosis 1+, Ovalocytes 1+ 12/13/21 14:28: PT 22.7 H, INR 2.1, APTT 30.6 12/13/21 14:28: Sodium 139, Potassium 4.2, Chloride 105, Carbon Dioxide 30.0, Anion Gap 4 L, BUN 19 H, Creatinine 0.81, Estim Creat Clear Calc 87.82, Est GFR (MDRD) Af Amer 120, Est GFR (MDRD) Non-Af 99, BUN/Creatinine Ratio 23.5 H, Glucose 118 H, Calcium 8.4 L, Total Bilirubin 1.30 H, AST 21, ALT 27, Alkaline Phosphatase 101, Troponin I High Sens 7, Total Protein 6.3 L, Albumin 2.9 L, Globulin 3.4, Albumin/Globulin Ratio 0.9 12/13/21 14:28: Lactic Acid 2.2 H* 12/13/21 16:05: Urine Color Yellow, Urine Clarity Clear, Urine pH 5.0, Ur Specific Maynard 1.020, Urine Protein Negative, Urine Glucose (UA) Normal, Urine Ketones Negative, Urine Occult Blood Negative, Urine Nitrite Negative, Urine Bilirubin Negative, Urine Urobilinogen Normal, Ur Leukocyte Esterase Negative, Urine RBC 0 SEEN, Urine WBC 0 SEEN, Ur Squamous Epith Cells 0 SEEN, Urine Bacteria 0 SEEN, Urine Mucus 0 SEEN 12/13/21 19:00: Lactic Acid 2.2 H* 12/14/21 03:21: WBC 7.5, RBC 3.66 L, Hgb 11.0 L, Hct 31.9 L, MCV 87.2, MCH 30.1, MCHC 34.5, RDW Std Deviation 43.5, RDW Coeff of Dick 13.6, Plt Count 99 L, MPV 9.8, Immature Gran % (Auto) 0.400, Neut % (Auto) 80.9 H, Lymph % (Auto) 9.4 L, [place] % (Auto) 8.4, Eos % (Auto) 0.8, Baso % (Auto) 0.1, Absolute Neuts (auto) 6.1, Absolute Lymphs (auto) 0.71 L, Nucleated RBC % 0, Differential Comment SCANNED, Platelet Estimate SLT 12/14/21 03:21: Sodium 135 L, Potassium 4.2, Chloride 104, Carbon Dioxide 27.0, Anion Gap 4 L, BUN 18, Creatinine 0.62 L, Estim Creat Clear Calc 71.13, Est GFR (MDRD) Af Amer 163, Est GFR (MDRD) Non-Af 135, BUN/Creatinine Ratio 29.1 H, Glucose 108 H, Calcium 7.9 L 12/14/21 09:00: PT 23.0 H, INR 2.1 Micro: Microbiology 12/13/21 15:12 Mucosa - Nasopharyngeal Influenza Types A,B Direct FA ([facility]ACE) - Final 12/13/21 15:12 Nasal Secretion SARS-CoV-2 Antigen (Rapid) - Final Radiology Impression Hip/Pelvis X-Ray 12/13/21 14:19 IMPRESSION: Impacted transcervical fracture of the proximal left femur. Cephalic migration of the distal fracture fragment. Electronically Signed: Benjie Lieberman MD at 16:03 EST , Shoulder X-Ray 12/13/21 14:19 IMPRESSION: Nondisplaced transverse fracture of the surgical neck of the proximal left humerus. Electronically Signed: Benjie Lieberman MD at 16:01 EST , Chest X-Ray 12/13/21 15:30 IMPRESSION: Cardiomegaly. Stable examination. Electronically Signed: Benjie Lieberman MD at 16:00 EST , Assessment & Plan Assessment/Plan (1) Closed left humeral fracture: PLAN: No acute surgery planned for the left humerus. We will attempt to treat this nonoperatively initially in a sling. We will apply a sling when the patient is able to sit more upright and be more mobile after his hip surgery. Nonweightbearing to the left upper extremity. He will be unable to bear weight through the left arm with a walker following surgery. (2) Closed fracture of left hip: PLAN: Patient sustained a left displaced femoral neck fracture. -Closed, neurovascularly intact -Recommending surgical intervention in the form of left hip hemiarthroplasty -Plan of care was discussed with the hospitalist yesterday. Both he and I felt that given the patient 24 hours of IV antibiotics for suspected pneumonia would benefit the patient as well as give us more time to bring his INR down to a safe level for surgery. Patient appears much improved from a pulmonary standpoint today. -I discussed the procedure-its risks, benefits and alternative. Risks include but are not limited to bleeding, infection, loss of life or limb, risk of anesthesia, persistent pain or disability, need for additional surgery, instability, failure of orthopedic hardware, neurovascular injury, DVT or PE. Patient expressed understanding these risks and wished proceed with surgery. -Maintenance IV fluids, clear liquid diet after midnight n.p.o. at 4 hours prior to surgery -INR at 2.1 today. Medicine to recheck INR this evening with possible vitamin K administration. Goal INR is 1.6 or below prior to surgery. -Type and screen -3 g Ancef on-call to the OR -Bedrest, heel protectors -Plan to proceed with surgery tomorrow 12/15/2021 Thank you for this consultation.
[2021-12-14] MEDS: Phytonadione (Vit K1) 5 MG TABLET PO (13:00)
[2021-12-14] MEDS: Senna/Docusate Sodium 1 Tablet 2 TABLET PO ×2 (13:05→21:48)
[2021-12-14 13:45] LABS: ALB/GLOB Ratio 0.7 RATIO (0.9-2.4); AST(SGOT) 29 U/L (15-37); Alanine Aminotransfer ALT/SGPT 21 U/L (16-61); Albumin, Serum 2.3 g/dL (3.2-5.0); Alkaline Phosphatase 69 U/L (45-117); Anion Gap 3 (5-15); BUN 17 mg/dL (7-18); BUN/Creat Ratio 29.1 RATIO (10-20); Calcium,Total 8.2 mg/dL (8.5-10.1); Chloride 105 mmol/L (98-107); Creatinine, Serum 0.58 mg/dL (0.70-1.30); EST Glomerular Filtration Rate 144 mL/min (>60); Est Glom Filt Rate - Afr Amer 174 mL/min (>60); Estimated Creatinine Clearance 71.13 ml/min; Globulin 3.1 g/dL (2.2-4.2); Glucose 95 mg/dL (74-106); Potassium 4.2 mmol/L (3.5-5.1); Protein, Total 5.4 g/dL (6.4-8.2); Sodium Level 136 mmol/L (136-145)
[2021-12-14 17:25] LABS: International Normalized Ratio 1.8; Prothrombin Time (Protime)PT. 19.8 SECONDS (11.7-14.9)
[2021-12-14] MEDS: Atorvastatin Calcium 80 MG Tablet PO (21:44)
[2021-12-14] MEDS: Doxazosin 4 MG Tablet 8 MG PO (21:46)
[2021-12-14] MEDS: ENZALUTAMIDE 40 MG CAPSULE 160 MG PO (21:46)
[2021-12-15] VITALS (21 sets, daily range): BP systolic 93–124; BP diastolic 56–78; PULSE 64–113; RESP 14–18; TEMP 36.3–37.3; O2SAT 92–97; BMI 40.1
--- NOTE | 2021-12-15 02:07 | NURSING ---
pt refuses to wear home cpap at bedtime, kept 2L, NC on.
[2021-12-15 05:29] LABS: Absolute Lymphocyte Count 0.69 X10^3/uL (0.83-4.51); Absolute Neutrophil Count 7.6 X10^3/uL (2.0-7.7); Basophil# 0.02 X10^3/uL; Basophil% 0.2 % (0-1); Eosinophil# 0.18 X10^3/uL; Hematocrit 30.5 % (40-54); Lymphocyte # 0.69 X10^3/ul (0.83-4.51); Lymphocyte % 7.7 % (19-41); Mean Corp Hgb Conc 36.1 g/dL (32-36); Mean Corpuscular Hgb 30.4 pg (27.0-32.0); Mean Corpuscular Volume 84.3 fL (80-94); Mean Platelet Vol. 9.9 fl (6.2-12.0); Monocyte# 0.49 X10^3/uL; Monocyte% 5.4 % (0-10); NRBC Flagged by Analyzer 0 % (0-5); Neutrophil % 84.4 % (47-70); POSITIVE COUNT YES; Platelet Count 75 K/mm3 (150-450); RBC Distribution Width CV 13.3 % (11.6-14.6); RBC Distribution Width SD 41.1 fl (35.1-43.9); Red Blood Count 3.62 M/mm3 (4.6-6.2)
[2021-12-15 05:40] LABS: Differential Indicated SCAN CRITERIA MET
[2021-12-15 05:43] LABS: Anion Gap 5 (5-15); BUN 15 mg/dL (7-18); BUN/Creat Ratio 24.9 RATIO (10-20); Calcium,Total 8.3 mg/dL (8.5-10.1); Chloride 104 mmol/L (98-107); EST Glomerular Filtration Rate 139 mL/min (>60); Est Glom Filt Rate - Afr Amer 169 mL/min (>60); Estimated Creatinine Clearance 71.13 ml/min; Glucose 102 mg/dL (74-106); Potassium 3.9 mmol/L (3.5-5.1); Sodium Level 135 mmol/L (136-145)
--- NOTE | 2021-12-15 05:55 | EKG12_ITS ---
Test Reason : AM EKG Blood Pressure : / mmHG Vent. Rate : 113 BPM Atrial Rate : 441 BPM P-R Int : 000 ms QRS Dur : 088 ms QT Int : 244 ms P-R-T Axes : 000 003 186 degrees QTc Int : 334 ms Atrial fibrillation Nonspecific ST and T wave abnormality Abnormal ECG When compared with ECG of 13-DEC-2021 15:18, MANUAL COMPARISON REQUIRED, DATA IS UNCONFIRMED Confirmed by ABDIAS SIMON, JACKIE ([id number]), editorial director DEIRDRE BALTAZAR ([id number]) on 12/17/2021 10:53:03 AM Referred By: GRISELDA Confirmed By:JACKIE CALERO MD
[2021-12-15 06:20] LABS: Differential Comment SCANNED; Platelet Estimate SLT DEC (ADEQ)
[2021-12-15 08:01] LABS: International Normalized Ratio 1.4; Prothrombin Time (Protime)PT. 16.6 SECONDS (11.7-14.9)
[2021-12-15] MEDS: Metoprolol Tartrate 50 MG Tablet PO ×2 (08:50→22:29)
[2021-12-15] MEDS: Ceftriaxone 1 GM/50 ML BAG IV (08:55)
[2021-12-15] MEDS: 0.9% Normal Saline 1,000 ML 15 ML IV (10:00)
--- NOTE | 2021-12-15 11:30 | PCM.PN.HOSP ---
Documented by User: Александр MERCADO 12/15/21 13:19 Subjective Subjective Patient is a 76-year-old male lying in bed, alert and oriented x3. Denies development of any new symptoms overnight. Does not appear in acute distress. Objective Data Objective Data Vital Signs: Vital Signs Temp Pulse Resp BP Pulse Ox 98.8 F 111 H 18 117/69 94 12/15/21 08:45 12/15/21 08:50 12/15/21 08:45 12/15/21 08:45 12/15/21 08:45 Oxygen Flow Rate (L/min) 2 Oxygen Delivery Method Nasal Cannula Weight: 295 lb 13.765 oz Body Mass Index (BMI) 40.1 Intake & Output: Intake and Output for Last 24 Hours 12/13/21 12/14/21 12/15/21 23:59 23:59 23:59 Intake Total 2425.00 / 2475.00 1375 / 1375 50 / 50 Output Total 650 / 900 850 / 850 400 / 400 Balance 1775.00 / 1575.00 525 / 525 -350 / -350 Lab / Micro Data Result Diagrams: 12/15/21 05:17 12/15/21 05:17 Labs: Laboratory Results - last 24 hr 12/13/21 14:28: Blood Type O POSITIVE, Antibody Screen NEGATIVE 12/14/21 09:00: Sodium 136, Potassium 4.2, Chloride 105, Carbon Dioxide 28.0, Anion Gap 3 L, BUN 17, Creatinine 0.58 L, Estim Creat Clear Calc 71.13, Est GFR (MDRD) Af Amer 174, Est GFR (MDRD) Non-Af 144, BUN/Creatinine Ratio 29.1 H, Glucose 95, Calcium 8.2 L, Total Bilirubin 1.80 H, AST 29, ALT 21, Alkaline Phosphatase 69, Total Protein 5.4 L, Albumin 2.3 L, Globulin 3.1, Albumin/Globulin Ratio 0.7 L 12/14/21 16:40: PT 19.8 H, INR 1.8 12/15/21 05:17: PT Cancelled, INR Cancelled 12/15/21 05:17: WBC 9.0, RBC 3.62 L, Hgb 11.0 L, Hct 30.5 L, MCV 84.3, MCH 30.4, MCHC 36.1 H, RDW Std Deviation 41.1, RDW Coeff of Dick 13.3, Plt Count 75 L, MPV 9.9, Immature Gran % (Auto) 0.300, Neut % (Auto) 84.4 H, Lymph % (Auto) 7.7 L, [place] % (Auto) 5.4, Eos % (Auto) 2.0, Baso % (Auto) 0.2, Absolute Neuts (auto) 7.6, Absolute Lymphs (auto) 0.69 L, Nucleated RBC % 0, Differential Comment SCANNED, Platelet Estimate SLT 12/15/21 05:17: Sodium 135 L, Potassium 3.9, Chloride 104, Carbon Dioxide 26.0, Anion Gap 5, BUN 15, Creatinine 0.60 L, Estim Creat Clear Calc 71.13, Est GFR (MDRD) Af Amer 169, Est GFR (MDRD) Non-Af 139, BUN/Creatinine Ratio 24.9 H, Glucose 102, Calcium 8.3 L 12/15/21 07:43: PT 16.6 H, INR 1.4 Micro: Microbiology 12/13/21 14:55 Blood Culture (Wb) - Right Hand Blood Culture - Preliminary No growth in 48 hours. 12/13/21 14:28 Blood Culture (Wb) - Anticubital Right Blood Culture - Preliminary No growth in 48 hours. 12/13/21 15:12 Mucosa - Nasopharyngeal Influenza Types A,B Direct FA ([facility]) - Final 12/13/21 15:12 Nasal Secretion SARS-CoV-2 Antigen (Rapid) - Final Physical Exam Const alert, oriented x3 and no apparent distress HEENT head/scalp atraumatic and moist oral mucous membranes Head and Scalp: normocephalic Eyes PERRL, EOMs intact bilaterally and conjunctivae normal Neck no lymphadenopathy, supple and no JVD Resp normal respiratory effort, no retractions and no use of accessory muscles Cardio regular rate, regular rhythm and no JVD GI normal to inspection, nondistended, normoactive bowel sounds Extremity normal to inspection Neuro CN's II-XII intact bilaterally Psych affect normal Assessment & Plan Assessment/Plan (1) Atrial fibrillation with RVR: (2) Acute hypotension: (3) Acute febrile illness: (4) Lactic acidosis: (5) Closed left humeral fracture: (6) Closed fracture of left hip: (7) Sepsis: PLAN: Day 2 Discharge planning: To be determined, case management/social work following. 1) fall with associated left humeral and left hip fracture. Patient to undergo left hip hemiarthroplasty per Dr. Oakes this afternoon, the left humeral fracture will be treated conservatively initially with a sling. Management per orthopedics. 2) sepsis secondary to possible community-acquired pneumonia Tachycardia, tachypnea and febrile illness have resolved from admission. Currently satting 94% on 2 L via nasal cannula. Patient denies development of any new respiratory symptoms overnight. WBC is currently 7.5. Blood cultures demonstrate no growth in 48 hours, will continue azithromycin and Rocephin to cover appropriately. 3) A. fib with RVR Rate is currently controlled, patient is on metoprolol for rate control and Coumadin for anticoagulation. Will resume coumadin on 12/16/2021. 4) hypotension Patient had a transient episode of hypotension in the ED at 93/38, fluid bolus given in the ED. Currently 117/69, will continue to monitor. 5) long-term anticoagulation use INR is therapeutic at 2.1. Resume coumadin on 12/16 as above. DVT prophylaxis - SCDs, anticoagulation on hold as above. Patient seen by Александр Bhakta PA-C, under the supervision of Dr. Pascal. Time spent on patient care: 7 minutes. Documented by User: Dr. Koby Pascal MD 12/15/21 14:00 Objective Data Lab / Micro Data Result Diagrams: 12/15/21 05:17 12/15/21 05:17 Charges/Coding Addendum Addendum: Dr. Pascal: I personally reviewed the chart and examined the patient, and agree with the above findings. 76-year-old male who been recently admitted to the hospital secondary to a fall leading to an L4 fracture. At that time he was offered transfer to the [facility] which he declined. He has not had any definitive treatment for this L4 fracture. He presents today after another fall he was trying to sit down in the chair and missed and he developed left hip pain and left arm pain consistent with a humeral fracture and a femoral fracture. The humeral fracture is nonoperative however the hip fracture will need to be repaired. He denies any significant shortness of breath at home or feeling ill other than having some borderline elevation in his temperatures. While here in the ER he did have temperatures over 100 and chest x-ray was read as normal but there is the possibility of an infiltrate on my read as well as and on the read of the ED physician so despite the fact he does have a leukocytosis, given his need for 2 L of oxygen now as well as recent Covid infection which could lead to a bacterial infection and his elevated lactic acid, he was started on Rocephin and azithromycin. He was also found to be in RVR from his A. fib will continue with his home metoprolol and adjust the dosing as necessary. Given his need for hip surgery, will hold his Coumadin and recheck his INR in the morning if necessary can give him 5 mg of IV vitamin K. In the ER he was given 2 L of fluids, and given his history of coronary artery disease we will see if he is able to remain hydrated with p.o. intake if not can put him on gentle IV fluids. Clinical care time spent in all aspects of patient care: 50 minutes 12/14/2021: Doing well today, pain is little bit better controlled. He other bob feels well and has no issues. INR is elevated 2.1 therefore we will give him a dose of vitamin K today and check his INR little bit later this afternoon if is not trending down may need to give him another 1 prior to surgery in the morning. Still requiring about 2 L nasal cannula will continue to hold off IV fluids and encourage p.o. intake. Also continue with his antibiotics for now, he is can receive a dose of Ancef prior to surgery for his hip repair. Clinical time spent in all aspects of patient care: 18 minutes 12/15/2021: Feels about the same today as he did yesterday, is having little bit more pain and he states that it is getting a bit harder to not move and whenever he moves his hip hurts. Plan is for the OR today, his INR is 1.4 so they should be able to proceed. I do recommend restarting his Coumadin for his A. fib within 24 to 48 hours of OR time if surgery is okay with this. We will continue nonoperative management of his left humeral fracture. Continue with PT/OT for evaluation and possible SNF placement. He can discontinue his azithromycin tomorrow after his third dose we will continue with Rocephin. Clinical time spent in all aspects of patient care activity: 18 minutes Visit Charges Inpatient E&M: 87823 Subs Hosp L2
[2021-12-15] MEDS: Bupivacaine Mpf 0.5% 30 ML VIAL (11:40)
--- NOTE | 2021-12-15 12:25 | PCM.OPRPT ---
Report of Operation Date of Procedure: 12/15/21 Description of Surgical Findings:: Preoperative diagnosis: Left displaced femoral neck fracture Postoperative diagnosis: Left displaced femoral neck fracture Procedure: Left hip hemiarthroplasty Surgeon: Koby Oakes DO Celery Tier: CLAUDIA Osorio Anesthesia: General endotracheal Anesthesiologist: Dr. Cao Complications: None Drains: None Estimated blood loss: 300 cc Urinary output: Per anesthesia record IV fluids: Per anesthesia record Specimens: None Surgical implants: [place]ckenridge Accolade two 127 degree neck angle hip stem size #7, Unitrax neck adjustment sleeve standard, Unitrax endoprosthesis head component outer diameter 50 mm Indications: This is a 76 M who presents to [facility] 12[facility]13[facility]2021 after he attempted to sit into his chair, missing the chair and falling onto his left side. He was unable to get up secondary to the pain. He denies any other associated injury. Denies any head trauma or loss consciousness. Patient was treated for suspected acute sepsis secondary to pneumonia with IV antibiotics and fluids upon arrival to the emergency department. He was admitted under the service of the hospitalist. X-rays in the emergency department revealed a left femoral neck fracture, displaced as well as a minimally displaced left surgical neck fracture of the proximal humerus. I was consulted for recommendations regarding his fracture. At time my examination, patient denies any feelings of generalized illness including fevers, chills, nausea vomiting, chest pain or shortness of breath. He denied any new pains beside his left hip pain and shoulder. Of note, patient sustained a L4 body fracture 11/25/2021. MRI was obtained and reviewed by Dr. Rm. Urgent surgery was not recommended at that time. He has not been in any sort of brace. Patient denies any change in his back pain since this new fall. Denied any numbness or tingling in his lower extremities. Denied any bowel or bladder changes. Denied any saddle anesthesia. I recommended a right hip hemiarthroplasty due to the pattern and displacement. I reviewed the procedure with the patient, its risk, benefits, alternatives. Risks included but were not limited to bleeding, infection, loss of life or limb, risk of anesthesia, neurovascular injury, persistent pain, instability, need for additional surgery, failure of orthopedic hardware, loosening, osteolysis, need for assistive devices long-term. Patient expressed understanding wish to proceed with surgery. Description of procedure: Prior to the procedure, patient was brought to the preoperative holding area where patient was identified by name, medical record number and date of . I confirmed the side, site, operation to be performed with the patient. Informed consent was confirmed, All questions were answered to patient satisfaction. The operative extremity was marked. He was also seen by anesthesia staff and anesthesia consent obtained.At time of the operative procedure, pt was brought to the operative suite. General anesthesia was induced on the hospital bed and endotracheal tube placed. After adequate anesthesia, patient was transferred to a standard operating table. He was then positioned in the lateral decubitus position with the left side up and held in position by [employer] hip positioner system. All bony prominences were well-padded. A axillary roll was placed under the patient's right axilla. Peroneal nerve was free with a blanket on the nonoperative extremity. Leg lengths were reproduced from patient's position when he was supine. The right lower extremity was then prepped and draped in normal, sterile orthopedic fashion. We performed a timeout with all parties in attendance in agreement with the side, site, and operation to be performed. No concerns were voiced and would like to proceed. 3 g Ancef IV was administered prior to the incision by anesthesia staff. I first marked an incision along the lateral aspect of the hip centered over the greater trochanteric tip. In standard posterior approach, a curvilinear incision was made above the trochanter. An approximately 15 cm incision was made. Skin was sharply incised with a 10 blade scalpel carried deep through subcutaneous layers to the level of the IT band. Gelpi retractors were then placed. A Marcelo was used to expose the IT band. Bovie cautery was then used for hemostasis and then to open the IT band. This was opened in line with the incision. A Charnley retractor was then placed. Sciatic nerve was free. The trochanteric bursa was then debrided. This identified the short external rotators after internal rotation of the hip. The fracture site was easily identified at this point. Short external rotators were taken down and tagged for later repair. Hip capsule was also tagged for repair with a stay suture. We then freshened the neck cut with a sagittal saw. Anterior and posterior acetabular retractors were placed to gain access to the femoral head. A corkscrew was used to remove the head. Any remaining debris was debrided from the acetabulum. We then placed the femoral head on the back table for measurement. We did use trial heads and selected a final size 50 with good suction fit. Box chisel was then utilized to gain access to the femoral canal. Canal finder was placed. Sequential broaches were used and press-fit manner. A final size 7 achieved excellent vertical and rotational stability. We then trialed with a standard and subsequently high offset stem. I offset did achieve excellent stability and reproduction of abductor tension. Leg lengths appeared appropriate with a size 0 neck length. Trials were then removed. We copiously irrigated the wound with normal saline solution and irrisept solution. A size 7 stem was then impacted with excellent fixation. Final head was then impacted over the [place] taper neck. Final reduction was performed. A posterior capsular repair was performed with #2 Ethibond suture utilizing bone tunnels in the greater trochanter. IT band was closed watertight with #1 Vicryl suture. Deeper fascial layers were closed with 0 Vicryl suture in interrupted fashion. Subcutaneous layers were reapproximated with 2-0 Vicryl suture and skin reapproximated with skin victoria. A silver dressing was applied. Patient tolerated procedure well without complication. He was positioned back in the supine position on his hospital bed and subsequently extubated safely. He was transferred to PACU in stable condition. An blankets were placed between the patient's leg to be worn while he is in bed. Post Operative Plan: Weightbearing: Weightbearing as tolerated left lower extremity, posterior hip precautions. Blankets between legs while in bed for the first 24 hours. Nonweightbearing left upper extremity, sling to the left arm. Antibiotics: Ancef 2 g every 8 hours x 3 doses DVT Prophylaxis: Restart home Coumadin 7.5 mg 12/16/2021 Gutierrez: Okay to remove postoperative day 1 from my standpoint, will defer to primary Dressing: Maintain silver dressing x7 days X-Rays: PACU x-rays to be obtained. Follow-up 3-week x-rays in my office Follow-up: 3 weeks in my office for staple removal
--- NOTE | 2021-12-15 12:28 | RAD_ITS ---
STUDY: X-RAY - PELVIS REASON FOR EXAM: Male, 76 years old. post-op left hip TECHNIQUE: One view of the pelvis was obtained. COMPARISON: FINDINGS: There is a non-specific bowel gas pattern. Normal visualized soft tissue structures. Normal bilateral iliac wings, sacroiliac joints and visualized sacrum. Normal visualized bilateral superior and inferior pubic rami. Normal pubic symphysis. Normal ischial tuberosities. Normal visualized right femoral head. Normal right acetabulum. Normal right hip joint. Interval recent left hip hemiarthroplasty for treatment of femoral neck fracture with subcutaneous emphysema. Normal left acetabulum. Normal left hip joint. RAD/Pelvis 1 or 2 Views IMPRESSION: Interval recent left hip hemiarthroplasty for treatment of femoral neck fracture. Electronically Signed: Delroy Maxwell MD at 12:50 EST ,
[2021-12-15] MEDS: Morphine 4 MG/ML Syringe IV (15:06)
[2021-12-15] MEDS: 0.9% Saline Lock 10 ML Syringe IV (15:07)
[2021-12-15] MEDS: Cefazolin 2 GM in 0.9% Normal Saline 100 ML IV (18:41)
[2021-12-15] MEDS: ENZALUTAMIDE 40 MG CAPSULE 160 MG PO (21:17)
[2021-12-15] MEDS: Atorvastatin Calcium 80 MG Tablet PO (21:19)
[2021-12-15] MEDS: Doxazosin 4 MG Tablet 8 MG PO (21:19)
[2021-12-15] MEDS: guaiFENesin 600 MG Tablet PO (21:19)
--- NOTE | 2021-12-15 22:27 | NURSING ---
Pt refuses to wear home cpap tonight, on 2L NC.
[2021-12-16] VITALS (12 sets, daily range): BP systolic 99–133; BP diastolic 48–72; PULSE 73–104; RESP 16–18; TEMP 36.6–37.1; O2SAT 93–97; BMI 40.1
[2021-12-16] MEDS: Cefazolin 2 GM in 0.9% Normal Saline 100 ML IV ×2 (02:40→13:27)
[2021-12-16 06:39] LABS: International Normalized Ratio 1.3; Prothrombin Time (Protime)PT. 15.5 SECONDS (11.7-14.9)
--- NOTE | 2021-12-16 07:43 | PCM.PN.ORT ---
Subjective Subjective Patient seen and examined. Denies any new complaints. Tolerating oral intake without nausea or vomiting. Denies fevers, chills, nausea vomiting, chest pain or shortness of breath. Objective Data Objective Data Vital Signs: Vital Signs Temp Pulse Resp BP Pulse Ox 98.2 F 88 16 105/56 L 97 12/16/21 05:03 12/16/21 05:03 12/16/21 05:03 12/16/21 05:03 12/16/21 05:03 Oxygen Flow Rate (L/min) 2 Oxygen Delivery Method Nasal Cannula Weight: 295 lb 13.765 oz Body Mass Index (BMI) 40.1 Intake & Output: Intake and Output for Last 24 Hours 12/14/21 12/15/21 12/16/21 23:59 23:59 23:59 Intake Total 1375 / 1375 838.75 / 838.75 110 / 110 Output Total 850 / 850 950 / 950 Balance 525 / 525 -111.25 / -111.25 110 / 110 Lab / Micro Data Result Diagrams: 12/15/21 05:17 12/15/21 05:17 Labs: Laboratory Results - last 24 hr 12/15/21 07:43: PT 16.6 H, INR 1.4 12/16/21 04:59: PT 15.5 H, INR 1.3 Micro: Microbiology 12/13/21 14:55 Blood Culture (Wb) - Right Hand Blood Culture - Preliminary No growth in 48 hours. 12/13/21 14:28 Blood Culture (Wb) - Anticubital Right Blood Culture - Preliminary No growth in 48 hours. 12/13/21 15:12 Mucosa - Nasopharyngeal Influenza Types A,B Direct FA ([facility]) - Final 12/13/21 15:12 Nasal Secretion SARS-CoV-2 Antigen (Rapid) - Final Radiography Diagnostic Testing: Radiology Impression Pelvis X-Ray 12/15/21 12:28 IMPRESSION: Interval recent left hip hemiarthroplasty for treatment of femoral neck fracture. Electronically Signed: Delroy Maxwell MD at 12:50 EST , Physical Exam Narrative General - A&Ox3, NAD. VSS/AF Left lower extremity -incisional dressing C/D/I. SILT Sural, Saphenous, SPN, DPN, Tibial N. distributions. DP, PT 2+. BCR. DF, PF, EHL 03/13. No calf TTP. Left upper extremity-sling in place. Cardinal motions left hand intact. Sensation intact throughout. Radial pulse 2+ first capillary refill in the fingertips. Assessment & Plan Assessment/Plan (1) Closed fracture of left hip: PLAN: POD#1 s/p left hip hemiarthroplasty - Pain control - Medicine following for medical management - PT/OT-weightbearing as tolerated, posterior hip precautions - DVT PPX -restart home Coumadin today - Case management - D/C planning (2) Closed left humeral fracture: PLAN: Nonweightbearing left upper extremity, maintain sling Plan for nonsurgical management
[2021-12-16 08:35] LABS: Absolute Lymphocyte Count 0.48 X10^3/uL (0.83-4.51); Absolute Neutrophil Count 10.6 X10^3/uL (2.0-7.7); Basophil# 0.01 X10^3/uL; Basophil% 0.1 % (0-1); Eosinophil# 0.01 X10^3/uL; Eosinophils% 0.1 % (0-5); Hematocrit 29.2 % (40-54); Lymphocyte # 0.48 X10^3/ul (0.83-4.51); Lymphocyte % 4.1 % (19-41); Mean Corp Hgb Conc 34.2 g/dL (32-36); Mean Corpuscular Hgb 30.2 pg (27.0-32.0); Mean Corpuscular Volume 88.2 fL (80-94); Mean Platelet Vol. 9.7 fl (6.2-12.0); Monocyte% 5.9 % (0-10); NRBC Flagged by Analyzer 0 % (0-5); Neutrophil # 10.56 X10^3/uL (2.7-7.7); Neutrophil % 89.4 % (47-70); POSITIVE COUNT YES; POSITIVE DIFFERENTIAL YES; Platelet Count 91 K/mm3 (150-450); RBC Distribution Width CV 13.1 % (11.6-14.6); RBC Distribution Width SD 41.8 fl (35.1-43.9); Red Blood Count 3.31 M/mm3 (4.6-6.2); White Blood Count 11.8 K/mm3 (4.4-11.0)
[2021-12-16 08:36] LABS: Differential Indicated SCAN CRITERIA MET
[2021-12-16 08:43] LABS: Anion Gap 3 (5-15); BUN 19 mg/dL (7-18); BUN/Creat Ratio 31.6 RATIO (10-20); Calcium,Total 8.2 mg/dL (8.5-10.1); Chloride 106 mmol/L (98-107); EST Glomerular Filtration Rate 139 mL/min (>60); Est Glom Filt Rate - Afr Amer 169 mL/min (>60); Estimated Creatinine Clearance 71.13 ml/min; Glucose 129 mg/dL (74-106); Potassium 4.1 mmol/L (3.5-5.1); Sodium Level 137 mmol/L (136-145)
[2021-12-16 08:59] LABS: Platelet Estimate SLT DEC (ADEQ)
[2021-12-16] MEDS: guaiFENesin 600 MG Tablet PO ×2 (09:21→21:45)
[2021-12-16] MEDS: Metoprolol Tartrate 50 MG Tablet PO ×2 (09:21→21:44)
[2021-12-16] MEDS: Loratadine 10 MG Tablet PO (09:21)
[2021-12-16] MEDS: Senna/Docusate Sodium 1 Tablet 2 TABLET PO ×2 (09:22→21:44)
[2021-12-16] MEDS: oxyCODONE 5 MG Tablet PO ×2 (10:46→18:10)
[2021-12-16] MEDS: Morphine 4 MG/ML Syringe IV ×2 (10:57→16:04)
--- NOTE | 2021-12-16 11:11 | CASEMGMT ---
Addendum entered by Nora Greenwood 12/16/21 11:22: Social Work SW spoke w/Melody in TCU, they can take pt, will start precert when appropriate. SW let pt know, explained they do take pt's insurance. Pt agreeable to TCU when ready. TYSHAWN Powers Original Note: Social Work SW met w/pt in regard to discharge plan. Pt explains was home for two days and fell. He is in agreement with going somewhere for rehab, he is aware he cannot go home. Pt had been at [facility] recently and was discharged home. We spoke about options this time, SW explained to pt he has more options available to him at this time as compared to the last stay, as on the last stay he had COVID. SW provided to pt a list of retirement facilities in pt's preferred geographic area with quality and resource use datat, that take pt's insurance. Pt would prefer [facility] TCU if they take his insurance--he states in the past TCU did not. If TCU cannot take pt he would like a referral sent to [facility]. SW explained will make the referrals and let him know. SW called TCU, message left for Melody. SW will await a call back. TYSHAWN Powers
--- NOTE | 2021-12-16 11:19 | PCM.PN.HOSP ---
Documented by User: Александр MERCADO 12/16/21 11:40 Subjective Subjective Patient is a 76-year-old male lying in bed, alert and oriented x3. Patient reports significant postoperative pain of the left hip and shoulder. Does not appear in acute distress. Objective Data Objective Data Vital Signs: Vital Signs Temp Pulse Resp BP Pulse Ox 98.0 F 101 H 18 128/60 H 94 12/16/21 09:10 12/16/21 09:21 12/16/21 09:10 12/16/21 09:10 12/16/21 09:10 Oxygen Flow Rate (L/min) 2 Oxygen Delivery Method Room Air Weight: 295 lb 13.765 oz Body Mass Index (BMI) 40.1 Intake & Output: Intake and Output for Last 24 Hours 12/14/21 12/15/21 12/16/21 23:59 23:59 23:59 Intake Total 1375 / 1375 838.75 / 838.75 110 / 110 Output Total 850 / 850 950 / 950 300 / 300 Balance 525 / 525 -111.25 / -111.25 -190 / -190 Lab / Micro Data Result Diagrams: 12/16/21 04:59 12/16/21 04:59 Labs: Laboratory Results - last 24 hr 12/16/21 04:59: PT 15.5 H, INR 1.3 12/16/21 04:59: WBC 11.8 H, RBC 3.31 L, Hgb 10.0 L, Hct 29.2 L, MCV 88.2, MCH 30.2, MCHC 34.2 D, RDW Std Deviation 41.8, RDW Coeff of Dick 13.1, Plt Count 91 L, MPV 9.7, Immature Gran % (Auto) 0.400, Neut % (Auto) 89.4 H, Lymph % (Auto) 4.1 L, Sawyer % (Auto) 5.9, Eos % (Auto) 0.1, Baso % (Auto) 0.1, Absolute Neuts (auto) 10.6 H, Absolute Lymphs (auto) 0.48 L, Nucleated RBC % 0, Platelet Estimate SLT 12/16/21 04:59: Sodium 137, Potassium 4.1, Chloride 106, Carbon Dioxide 28.0, Anion Gap 3 L, BUN 19 H, Creatinine 0.60 L, Estim Creat Clear Calc 71.13, Est GFR (MDRD) Af Amer 169, Est GFR (MDRD) Non-Af 139, BUN/Creatinine Ratio 31.6 H, Glucose 129 H, Calcium 8.2 L Micro: Microbiology 12/13/21 14:55 Blood Culture (Wb) - Right Hand Blood Culture - Preliminary No growth in 48 hours. 12/13/21 14:28 Blood Culture (Wb) - Anticubital Right Blood Culture - Preliminary No growth in 48 hours. 12/13/21 15:12 Mucosa - Nasopharyngeal Influenza Types A,B Direct FA ([facility]ACE) - Final 12/13/21 15:12 Nasal Secretion SARS-CoV-2 Antigen (Rapid) - Final Radiography Diagnostic Testing: Radiology Impression Pelvis X-Ray 12/15/21 12:28 IMPRESSION: Interval recent left hip hemiarthroplasty for treatment of femoral neck fracture. Electronically Signed: Delroy Maxwell MD at 12:50 EST , Physical Exam Const alert, oriented x3 and no apparent distress HEENT head/scalp atraumatic and moist oral mucous membranes Head and Scalp: normocephalic Eyes PERRL, EOMs intact bilaterally and conjunctivae normal Neck no lymphadenopathy, supple and no JVD Resp normal respiratory effort, no retractions and no use of accessory muscles Cardio regular rate, regular rhythm and no JVD GI normal to inspection, nondistended, normoactive bowel sounds Extremity normal to inspection, full ROM and no clubbing, cyanosis or edema Skin no rashes or lesions noted, no wounds and skin turgor normal Neuro CN's II-XII intact bilaterally Psych affect normal Assessment & Plan Assessment/Plan (1) Atrial fibrillation with RVR: (2) Acute hypotension: (3) Acute febrile illness: (4) Lactic acidosis: (5) Closed left humeral fracture: (6) Closed fracture of left hip: PLAN: Day 3 Discharge planning: To be determined, case management/social work following. 1) fall with associated left humeral and left hip fracture. POD 1 status post left hip hemiarthroplasty, left humeral fracture will be treated conservatively with a sling. Management per orthopedics. To undergo PT/OT eval for possible SNF placement. 2) sepsis secondary to possible community-acquired pneumonia Tachycardia, tachypnea and febrile illness have resolved from admission. Currently satting 94% on 2 L via nasal cannula. Patient denies development of any new respiratory symptoms overnight. WBC is currently 11.2, which is up from yesterday, likely reactionary to surgery. Blood cultures demonstrate no growth in 48 hours, will continue azithromycin and Rocephin to cover appropriately. 3) A. fib with RVR Rate is currently controlled, patient is on metoprolol for rate control and Coumadin for anticoagulation. Resume Coumadin, continue metoprolol. 4) hypotension Resolved. 5) long-term anticoagulation use Resume Coumadin as above. DVT prophylaxis - SCDs + Coumadin. Patient seen by Александр Bhakta PA-C, under the supervision of Dr. Colindres. Documented by User: Dr. Jame Colindres MD 12/16/21 14:31 Subjective Subjective Patient admitted with closed fracture of left hip and closed left humeral fracture Objective Data Lab / Micro Data Result Diagrams: 12/16/21 04:59 12/16/21 04:59 Physical Exam Narrative General: Alert, Oriented x3, Cooperative HEENT: Atraumatic, PERRLA, EOMI, Normocephalic Oral: No Gingival or Mucosal Lesions/ Ulcerations Neck: Supple, No JVD, Negative Carotid Bruits Lungs: Air entry diminished in bilateral lung bases. No crepitation/rhonchi Cardiovascular: Irregular rhythm, A. fib, Normal S1, Normal S2, No murmurs Abdomen: Bowel Sounds sluggish, Soft, Non Tender, Non-Distended : Gutierrez catheter, clear urine no renal angle tenderness. No suprapubic tenderness. Extremities: Left upper extremity edema, Capillary Refill Less than 3 Seconds Skin: No rashes, No breakdown Musculoskeletal: Left hip surgical dressing is dry with mild fullness and tenderness. Left upper extremity in sling. Neurological: Cranial nerves II-XII grossly intact, DTR 2+/4 and Symmetrical, Neuro grossly intact Psych/Mental Status: Flat affect Assessment & Plan Assessment/Plan (1) Closed left humeral fracture: (2) Closed fracture of left hip: PLAN: This patient was seen in conjunction with JESS Mai. I have independently interviewed and examined the patient and reviewed pertinent history, examination findings, laboratory and plan of management. I have reviewed the note and agree with the documented findings with the few additional points. In brief, patient is admitted for mechanical fall with consequent left displaced transcervical femoral neck fracture and left humeral fracture. X-rays were reviewed and shows impacted transcervical fracture of proximal left femur with cephalic migration of distal fracture segment. Shoulder x-ray shows nondisplaced transverse fracture of surgical neck of proximal left humerus patient also most probably pathological from osteoporosis. Patient also had pneumonia most likely community-acquired pneumonia. On ceftriaxone and azithromycin. A. fib with RVR, rate is controlled. Coumadin resumed. Hypotension resolved. During previous hospitalization patient was tested positive for COVID-19 and treated with dexamethasone. He was also found to have acute fracture of L4 vertebra on MRI for not able to stand.. Patient at that time was transferred to [facility]/[address] [place] [address]. Total time of the visit includes total time spent in counseling or coordination of care, (more than 50% of the total time, spent in obtaining medical information from nurses and other ancillary care providers,explaining to the patient about labs, imaging, diagnosis and management), discussion with multi site leasing consultant, review of labs and imaging is 30 minutes; I spent 18 minutes, more than half time and JESS Chavez spent 12 minutes I have discussed my assessment with JESS Mai and orders have been reviewed. Charges/Coding Visit Charges Inpatient E&M: 28696 Subs Hosp L2
[2021-12-16] MEDS: Ceftriaxone 1 GM/50 ML BAG IV (12:07)
[2021-12-16] MEDS: Calcium Carbonate 500 MG Tablet PO ×2 (13:28→18:10)
--- NOTE | 2021-12-16 15:18 | RAD_ITS ---
STUDY: X-RAY CHEST REASON FOR EXAM: Male, 76 years old. PICC line insertion TECHNIQUE: AP COMPARISON: 12/13/2021 FINDINGS: Fusion hardware of the lower cervical spine. Fusion hardware of the thoracolumbar spine. Sternal wires and mediastinal surgical clips compatible with prior CABG. Right arm PICC present with tip overlying the mid SVC. No airspace consolidation. There is no demonstrated pleural abnormality. Stable cardiomegaly. Normal mediastinum and parul. Normal visualized pulmonary arteries. Normal visualized aortic arch and descending thoracic aorta. No acute bony process. There is no demonstrated abnormality of the visualized soft tissue structures of the upper abdomen. RAD/CXR for Line Placement IMPRESSION: Right arm PICC terminates in the mid SVC. Electronically Signed: Olivier Agustin MD (Brooks) at 16:03 EST ,
[2021-12-16] MEDS: 0.9% Saline Lock 10 ML Syringe IV (16:05)
[2021-12-16] MEDS: ENZALUTAMIDE 40 MG CAPSULE 160 MG PO (21:43)
[2021-12-16] MEDS: Atorvastatin Calcium 80 MG Tablet PO (21:44)
[2021-12-16] MEDS: Doxazosin 4 MG Tablet 8 MG PO (21:48)
[2021-12-17] VITALS (7 sets, daily range): BP systolic 115–123; BP diastolic 63–75; PULSE 83–106; RESP 18; TEMP 36.4–36.9; O2SAT 94–98
[2021-12-17 05:28] LABS: Absolute Lymphocyte Count 0.84 X10^3/uL (0.83-4.51); Absolute Neutrophil Count 6.3 X10^3/uL (2.0-7.7); Basophil# 0.01 X10^3/uL; Basophil% 0.1 % (0-1); Eosinophil# 0.17 X10^3/uL; Eosinophils% 2.2 % (0-5); Hematocrit 26.6 % (40-54); Hemoglobin 8.8 g/dL (13.0-16.5); Lymphocyte # 0.84 X10^3/ul (0.83-4.51); Lymphocyte % 10.7 % (19-41); Mean Corp Hgb Conc 33.1 g/dL (32-36); Mean Corpuscular Hgb 29.2 pg (27.0-32.0); Mean Corpuscular Volume 88.4 fL (80-94); Mean Platelet Vol. 9.8 fl (6.2-12.0); Monocyte# 0.55 X10^3/uL; NRBC Flagged by Analyzer 0 % (0-5); Neutrophil # 6.27 X10^3/uL (2.7-7.7); Neutrophil % 79.7 % (47-70); POSITIVE COUNT YES; Platelet Count 89 K/mm3 (150-450); RBC Distribution Width CV 13.4 % (11.6-14.6); RBC Distribution Width SD 43.8 fl (35.1-43.9); Red Blood Count 3.01 M/mm3 (4.6-6.2); White Blood Count 7.9 K/mm3 (4.4-11.0)
[2021-12-17 05:52] LABS: International Normalized Ratio 1.3; Prothrombin Time (Protime)PT. 15.6 SECONDS (11.7-14.9)
[2021-12-17 05:56] LABS: Anion Gap 5 (5-15); BUN 19 mg/dL (7-18); BUN/Creat Ratio 40.3 RATIO (10-20); Chloride 103 mmol/L (98-107); Creatinine, Serum 0.47 mg/dL (0.70-1.30); EST Glomerular Filtration Rate 185 mL/min (>60); Est Glom Filt Rate - Afr Amer 223 mL/min (>60); Estimated Creatinine Clearance 71.13 ml/min; Glucose 103 mg/dL (74-106); Sodium Level 137 mmol/L (136-145)
[2021-12-17] MEDS: Acetaminophen 325 MG Tablet 650 MG PO (08:36)
[2021-12-17] MEDS: guaiFENesin 600 MG Tablet PO (08:39)
[2021-12-17] MEDS: Loratadine 10 MG Tablet PO (08:39)
[2021-12-17] MEDS: Calcium Carbonate 500 MG Tablet PO ×2 (08:39→11:09)
[2021-12-17] MEDS: Senna/Docusate Sodium 1 Tablet 2 TABLET PO (08:40)
--- NOTE | 2021-12-17 10:07 | CASEMGMT ---
Social Work As per Melody in TCU, pt will need to use his own Xtandi, and he will not be able to get the Luprilide injection while in TCU. SW spoke w/pt, he is in agreement with this. He states he is due for the injection, however he spoke w/the doctor and the doctor is okay with him missing a dose. Plan continues to be TCU when medically ready and precert is attained. TYSHAWN Powers
[2021-12-17] MEDS: Ceftriaxone 1 GM/50 ML BAG IV (10:20)
--- NOTE | 2021-12-17 10:25 | CASEMGMT ---
RAHEEM received a call from Melody with TCU and patient was approved. RAHEEM notified physician and patient will go today. RAHEEM notified Melody that patient will be coming today. Mary Jane BANERJEE
[2021-12-17] MEDS: 0.9% Saline Lock 10 ML Syringe IV (10:30)
[2021-12-17] MEDS: Metoprolol Tartrate 50 MG Tablet PO (10:30)
--- NOTE | 2021-12-17 10:59 | PCM.PN.ORT ---
Subjective Subjective Patient seen and examined. He states his left hip is feeling somewhat better. However, the patient states this is the worst he is ever felt in his life in terms of pain all over. He states he attempted to go to the chair yesterday with therapy but could not tolerate it. Denies nausea, vomiting, chest pain or shortness of breath, fevers or chills. Objective Data Objective Data Vital Signs: Vital Signs Temp Pulse Resp BP Pulse Ox 98.4 F 106 H 18 123/67 H 95 12/17/21 08:40 12/17/21 10:30 12/17/21 08:40 12/17/21 10:30 12/17/21 08:40 Oxygen Flow Rate (L/min) 4 Oxygen Delivery Method Nasal Cannula Weight: 295 lb 13.765 oz Body Mass Index (BMI) 40.1 Intake & Output: Intake and Output for Last 24 Hours 12/15/21 12/16/21 12/17/21 23:59 23:59 23:59 Intake Total 838.75 / 838.75 2085 / 2085 Output Total 950 / 950 775 / 775 300 / 300 Balance -111.25 / -111.25 1310 / 1310 -300 / -300 Lab / Micro Data Result Diagrams: 12/17/21 04:17 12/17/21 04:17 Labs: Laboratory Results - last 24 hr 12/17/21 04:17: PT 15.6 H, INR 1.3 12/17/21 04:17: WBC 7.9, RBC 3.01 L, Hgb 8.8 L, Hct 26.6 L, MCV 88.4, MCH 29.2, MCHC 33.1, RDW Std Deviation 43.8, RDW Coeff of Dick 13.4, Plt Count 89 L, MPV 9.8, Immature Gran % (Auto) 0.300, Neut % (Auto) 79.7 H, Lymph % (Auto) 10.7 L, Miner % (Auto) 7.0, Eos % (Auto) 2.2, Baso % (Auto) 0.1, Absolute Neuts (auto) 6.3, Absolute Lymphs (auto) 0.84, Nucleated RBC % 0 12/17/21 04:17: Sodium 137, Potassium 4.0, Chloride 103, Carbon Dioxide 29.0, Anion Gap 5, BUN 19 H, Creatinine 0.47 L, Estim Creat Clear Calc 71.13, Est GFR (MDRD) Af Amer 223, Est GFR (MDRD) Non-Af 185, BUN/Creatinine Ratio 40.3 H, Glucose 103, Calcium 8.0 L Micro: Microbiology 12/13/21 14:55 Blood Culture (Wb) - Right Hand Blood Culture - Preliminary No growth in 48 hours. 12/13/21 14:28 Blood Culture (Wb) - Anticubital Right Blood Culture - Preliminary No growth in 48 hours. 12/13/21 15:12 Mucosa - Nasopharyngeal Influenza Types A,B Direct FA ([facility]ACE) - Final 12/13/21 15:12 Nasal Secretion SARS-CoV-2 Antigen (Rapid) - Final Radiography Diagnostic Testing: Radiology Impression Chest X-Ray 12/16/21 15:18 IMPRESSION: Right arm PICC terminates in the mid SVC. Electronically Signed: Olivier Agustin MD (Brooks) at 16:03 EST Reading Location ID and State: [address] [place] [address] , Service support , Physical Exam Narrative General - A&Ox3, NAD. VSS/AF Left lower extremity -incisional dressing demonstrates spotting but otherwise C/D/I. SILT Sural, Saphenous, SPN, DPN, Tibial N. distributions. DP, PT 2+. BCR. DF, PF, EHL 5/5. No calf TTP. Left upper extremity-sling in place. Cardinal motions left hand intact. Sensation intact throughout. Radial pulse 2+ first capillary refill in the fingertips. Assessment & Plan Assessment/Plan (1) Closed fracture of left hip: PLAN: POD#2 s/p left hip hemiarthroplasty - Pain control - Medicine following for medical management - PT/OT-weightbearing as tolerated, posterior hip precautions - DVT PPX -Coumadin, SCDs, mobilization -Stable from orthopedic standpoint. I will sign off. Please do not hesitate to call if any questions or concerns arise. Follow-up in 3 weeks with me in the office. Okay to remove silver surgical dressing on postoperative day #7 leave open to air if no drainage. Otherwise, cover with dry sterile dressing changes daily as needed. - Case management - D/C planning (2) Closed left humeral fracture: PLAN: Nonweightbearing left upper extremity, maintain sling Plan for nonsurgical management Limit active or passive range of motion for the next 3 weeks except for pendulums.
[2021-12-17] MEDS: oxyCODONE 5 MG Tablet PO (11:09)
--- NOTE | 2021-12-17 11:34 | TREXTCAR_ITS ---
Documented by User: Александр MERCADO 12/17/21 11:50 Diet 12/15/21 15:11 Diet: Cardiac - Heart Healthy Food consistency:: Regular Liquid Consistency:: Regular/Thin Is pt able to select menu?: Yes Wound(s) left elbow: Wound Type: Abrasion left hip: Wound Type: Surgical Incision left hand: Wound Type: iv infiltration/blistering Therapies Weight Bearing: Weight bearing as tolerated Physical Therapy: Eval and Treat Occupational Therapy: Eval and Treat Problem/Diagnosis (1) Closed fracture of left hip: Status: Acute (2) Closed left humeral fracture: Status: Acute Allergies/Procedures Done in Hospital Allergies amiodarone Adverse Reaction (Intermediate, Verified 11/25/21 12:16) It did not work, also bad dreams and neuropathy Type of Care/Length of Stay Estimated LOS: Convalescent Care Less Than 30 days Type of Care Needed: Skilled Rehab Potential: Good Prognosis: Good Additional Orders/Day of Discharge Day of Discharge: 12/17/21 Dietary and Speech Recommendations Dietitian Recommendations/Changes: Will continue Cardiac diet d/t pmhx and edema Will provide 120 ml ensure compact tid w/ medpass for increased nutrition if consumed. Discharge Plan Admission Admit Date/Time: 12/13/21 16:13 Primary Reason for Your Visit: Fall w/ left shoulder + left hip fracture. Attending Provider: Jame Colindres Primary Care Provider: James Pisano Chi [employer] Providers: Koby Oakes Instructions Additional Instructions / Restrictions: Left hip: Okay to remove silver surgical dressing on postoperative day #7 leave open to air if no drainage. Otherwise, cover with dry sterile dressing changes daily as needed. Posterior hip precautions-no flexion greater than 70 degrees of the hip, no internal rotation, no crossing legs. Left shoulder: Limit range of motion except for pendulums for 3 weeks. Maintain sling except for hygeine. Discharge Orders/Prescriptions Prescriptions: New oxycodone 5 mg Tablet 5 mg PO Q8H PRN PRN (Reason: Pain Score 6-10) 5 Days Qty: 15 RF: 0 cefdinir 300 mg capsule 300 mg PO BID Qty: 8 RF: 0 Continued potassium chloride 20 mEq tablet extended release 20 meq PO DAILY RF: 0 cholecalciferol (vitamin D3) 1,250 mcg (50,000 unit) capsule 1,000 unit PO DAILY RF: 0 acetaminophen 325 mg tablet 650 mg PO Q4H PRN PRN (Reason: Pain) RF: 0 cromolyn [Nasalcrom] 5.2 mg/spray (4 %) spray,non-aerosol 2 spray INTRANASAL DAILY RF: 0 metoprolol tartrate 50 mg tablet 50 mg PO BID RF: 0 terazosin 10 mg capsule 10 mg PO QHS RF: 0 losartan 100 mg tablet 100 mg PO DAILY RF: 0 Lupron Depot (3 month) 22.5 mg syringe kit 11.25 mg IM [id number] RF: 0 atorvastatin 80 MG tablet 80 mg PO QHS RF: 0 cetirizine 10 MG capsule 10 mg PO DAILY RF: 0 enzalutamide 40 MG capsule 160 mg PO DAILY RF: 0 warfarin 7.5 mg Tablet 7.5 mg PO DAILY RF: 0 guaifenesin [Mucus Relief ER] 600 mg Tablet Extended Release 12hr 600 mg PO BID Qty: 20 RF: 0 dexamethasone 6 mg tablet 6 mg PO DAILY RF: 0 doxazosin 8 mg tablet 8 mg PO DAILY RF: 0 nystatin [Nyamyc] 100,000 unit/gram powder 1 applic topical BID RF: 0 Referrals / Follow Up: Koby Oakes DO [STAFF PHYSICIAN] - 01/03/22 James Pisano Chi, MD [Primary Care Provider] - Within 2 Weeks Disposition Disposition (needs filled in before D/C Order can be placed): Care Home Facility Documented by User: Dr. Jame Colindres MD 12/17/21 12:24 Routine Orders/Code Status Suppository Type: Dulcolax 10mg Suppository Frequency: Daily PRN Routine Lab Work: CBC, BMP and INR Code Status: DNRCC-A ( No intubation) Therapies Weight Bearing: Weight bearing as tolerated Extremity Affected:: Bilateral Lower Physical Therapy: Eval and Treat Occupational Therapy: Eval and Treat Speech Therapy: Eval and Treat Allergies/Procedures Done in Hospital Allergies amiodarone Adverse Reaction (Intermediate, Verified 11/25/21 12:16) It did not work, also bad dreams and neuropathy Type of Care/Length of Stay Estimated LOS: Convalescent Care Less Than 30 days Type of Care Needed: Skilled Rehab Potential: Good Prognosis: Good Additional Orders/Day of Discharge Day of Discharge: 12/17/21 Discharge Plan Admission Admit Date/Time: 12/13/21 16:13 Primary Reason for Your Visit: Fall w/ left shoulder + left hip fracture. Attending Provider: Jame Colindres Primary Care Provider: James Pisano [employer] Providers: Koby Oakes Instructions Additional Instructions / Restrictions: Left hip: Okay to remove silver surgical dressing on postoperative day #7 leave open to air if no drainage. Otherwise, cover with dry sterile dressing changes daily as needed. Posterior hip precautions-no flexion greater than 70 degrees of the hip, no internal rotation, no crossing legs. Left shoulder: Limit range of motion except for pendulums for 3 weeks. Maintain sling except for hygeine. Discharge Orders/Prescriptions Prescriptions: New oxycodone 5 mg Tablet 5 mg PO Q8H PRN PRN (Reason: Pain Score 6-10) 5 Days Qty: 15 RF: 0 cefdinir 300 mg capsule 300 mg PO BID Qty: 8 RF: 0 Continued potassium chloride 20 mEq tablet extended release 20 meq PO DAILY RF: 0 cholecalciferol (vitamin D3) 1,250 mcg (50,000 unit) capsule 1,000 unit PO DAILY RF: 0 acetaminophen 325 mg tablet 650 mg PO Q4H PRN PRN (Reason: Pain) RF: 0 cromolyn [Nasalcrom] 5.2 mg/spray (4 %) spray,non-aerosol 2 spray INTRANASAL DAILY RF: 0 metoprolol tartrate 50 mg tablet 50 mg PO BID RF: 0 terazosin 10 mg capsule 10 mg PO QHS RF: 0 losartan 100 mg tablet 100 mg PO DAILY RF: 0 Lupron Depot (3 month) 22.5 mg syringe kit 11.25 mg IM [id number] RF: 0 atorvastatin 80 MG tablet 80 mg PO QHS RF: 0 cetirizine 10 MG capsule 10 mg PO DAILY RF: 0 enzalutamide 40 MG capsule 160 mg PO DAILY RF: 0 warfarin 7.5 mg Tablet 7.5 mg PO DAILY RF: 0 guaifenesin [Mucus Relief ER] 600 mg Tablet Extended Release 12hr 600 mg PO BID Qty: 20 RF: 0 dexamethasone 6 mg tablet 6 mg PO DAILY RF: 0 doxazosin 8 mg tablet 8 mg PO DAILY RF: 0 nystatin [Nyamyc] 100,000 unit/gram powder 1 applic topical BID RF: 0 Referrals / Follow Up: Koby Oakes DO [STAFF PHYSICIAN] - 01/03/22 James Pisano Chi, MD [Primary Care Provider] - Within 2 Weeks Disposition Disposition (needs filled in before D/C Order can be placed): Care Home Facility
--- NOTE | 2021-12-17 13:05 | CASEMGMT ---
Patient is ready for discharge to TCU. SW copied med list and put a copy in chart. Plan: d/c to [facility] TCU under skilled level of care. Mary Jane BANERJEE
--- NOTE | 2021-12-17 13:31 | DS.PCM_ITS ---
Documented by User: Александр MERCADO 12/17/21 13:41 Providers Date of Admission: 12/13/21 Primary Care Physician: Dr. James Pisano MD Consultations 12/13/21 16:51 Consult: Orthopedics Routine Consulting Provider: Koby Oakes Reason for Consult: Hip fracture EMERGENT Consult: No MD Notified: Yes Date Notified: 12/13/21 Time Notified: 16:19 Method of Notification: Verbal Reason For Visit: PNEUMONIA / HIP FX / A FIB WITH RVR Diagnosis Discharge Diagnosis (1) Closed fracture of left hip: Status: Acute Code(s): S72.002A - Fracture of unspecified part of neck of left femur, initial encounter for closed fracture (2) Closed left humeral fracture: Status: Acute Code(s): S42.302A - Unspecified fracture of shaft of humerus, left arm, initial encounter for closed fracture Medications at Discharge Home Medications atorvastatin 80 mg PO QHS 04/02/16 potassium chloride 20 mEq tablet,extended release 20 meq PO DAILY 12/03/18 cetirizine 10 mg PO DAILY 12/27/18 acetaminophen 325 mg tablet 650 mg PO Q4H PRN PRN tab 03/09/19 cromolyn 5.2 mg/spray (4 %) nasal spray 2 spray INTRANASAL DAILY ml 03/09/19 metoprolol tartrate 50 mg tablet 50 mg PO BID 03/15/19 terazosin 10 mg capsule 10 mg PO QHS 03/15/19 leuprolide (3 month) 22.5 mg (3 month) intramuscular syringe kit 11.25 mg IM [id number] 04/23/20 losartan 100 mg tablet 100 mg PO DAILY 04/23/20 cholecalciferol (vitamin D3) 1,250 mcg (50,000 unit) capsule 1,000 unit PO DAILY cap 10/29/20 enzalutamide 160 mg PO DAILY 01/05/21 warfarin 7.5 mg PO DAILY 11/25/21 dexamethasone 6 mg PO DAILY 12/14/21 doxazosin 8 mg PO DAILY 12/14/21 nystatin [Nyamyc] 1 applic TOPICAL BID 12/14/21 cefdinir 300 mg PO BID 12/17/21 guaifenesin [Mucus Relief ER] 600 mg PO BID 12/17/21 oxycodone 5 mg PO Q8H PRN PRN 5 Days #15 tab 12/17/21 Hospital Course Operations - (Left hip hemiarthroplasty.) Summary of Care Provided Minutes Spent on Discharge: 20 Hospital Course: Patient is a 76-year-old male who was admitted to [facility] on 12/13/2021 for evaluation and management of fall with left shoulder and hip fracture. Course and management as below. 1) fall with associated left humeral and left hip fracture. POD 2 status post left hip hemiarthroplasty, left humeral fracture will be treated conservatively with a sling. Management per orthopedics. Patient to discharge to transitional care unit for ongoing skilled therapy and rehab. 2) sepsis secondary to possible community-acquired pneumonia Tachycardia, tachypnea and febrile illness have resolved from admission. Currently satting 94% on 2 L via nasal cannula. Patient denies development of any new respiratory symptoms overnight. WBC is currently 7.9, which is improved from yesterday. Blood cultures demonstrate no growth in 48 hours, 3 days of azithromycin completed during admission, will continue cefdinir for another 4 days to complete 7-day course. 3) A. fib with RVR Rate is currently controlled, patient is on metoprolol for rate control and Coumadin for anticoagulation. Continue metoprolol and Coumadin. 4) hypotension Resolved. 5) long-term anticoagulation use Resume Coumadin as above. Patient seen by Александр Bhakta PA-C, under the supervision of Dr. Colindres. Physical Exam Narrative Patient is a 76-year-old male comfortably resting in bed, alert and orient x3. Reports minimal pain from his recent surgery, denies development of any new symptoms overnight. Does not appear in acute distress. Const alert, oriented x3 and no apparent distress HEENT normocephalic, head/scalp atraumatic and hearing grossly normal bilaterally Eyes PERRL and conjunctivae normal Neck no lymphadenopathy, supple and no JVD Resp normal respiratory effort, no retractions and no use of accessory muscles Cardio regular rate, regular rhythm and no JVD GI normal to inspection, nondistended, normoactive bowel sounds, soft to palpation and non-tender Extremity Extremity Narrative: Left upper extremity with sling appropriately in place, left lower extremity appropriately brace. Skin no rashes or lesions noted and no wounds Neuro CN's II-XII intact bilaterally Psych affect normal Weight / BMI Weight Weight: 295 lb 13.765 oz Body Mass Index (BMI) 40.1 ABG / Lab / Microbiology Data Result Diagrams: 12/17/21 04:17 12/17/21 04:17 Laboratory: Laboratory Results - last 24 hr 12/17/21 04:17: PT 15.6 H, INR 1.3 12/17/21 04:17: WBC 7.9, RBC 3.01 L, Hgb 8.8 L, Hct 26.6 L, MCV 88.4, MCH 29.2, MCHC 33.1, RDW Std Deviation 43.8, RDW Coeff of Dick 13.4, Plt Count 89 L, MPV 9.8, Immature Gran % (Auto) 0.300, Neut % (Auto) 79.7 H, Lymph % (Auto) 10.7 L, [place] % (Auto) 7.0, Eos % (Auto) 2.2, Baso % (Auto) 0.1, Absolute Neuts (auto) 6.3, Absolute Lymphs (auto) 0.84, Nucleated RBC % 0 12/17/21 04:17: Sodium 137, Potassium 4.0, Chloride 103, Carbon Dioxide 29.0, Anion Gap 5, BUN 19 H, Creatinine 0.47 L, Estim Creat Clear Calc 71.13, Est GFR (MDRD) Af Amer 223, Est GFR (MDRD) Non-Af 185, BUN/Creatinine Ratio 40.3 H, Glucose 103, Calcium 8.0 L Microbiology: Microbiology 12/13/21 14:55 Blood Culture (Wb) - Right Hand Blood Culture - Preliminary No growth in 48 hours. 12/13/21 14:28 Blood Culture (Wb) - Anticubital Right Blood Culture - Preliminary No growth in 48 hours. 12/13/21 15:12 Mucosa - Nasopharyngeal Influenza Types A,B Direct FA (WALLACE) - Final 12/13/21 15:12 Nasal Secretion SARS-CoV-2 Antigen (Rapid) - Final Radiography Diagnostic Testing: Radiology Impression Chest X-Ray 12/16/21 15:18 IMPRESSION: Right arm PICC terminates in the mid SVC. Electronically Signed: Olivier Agustin MD (Brooks) at 16:03 EST , Meaningful Use Info Meaningful Use Diagnoses (Choose all that apply): None applicable Discharge Plan Admission Admit Date/Time: 12/13/21 16:13 Primary Reason for Your Visit: Fall w/ left shoulder + left hip fracture. Attending Provider: Jame Colindres Primary Care Provider: James Pisano Chi Consulting Providers: Koby Oakes Instructions Additional Instructions / Restrictions: Left hip: Okay to remove silver surgical dressing on postoperative day #7 leave open to air if no drainage. Otherwise, cover with dry sterile dressing changes daily as needed. Posterior hip precautions-no flexion greater than 70 degrees of the hip, no internal rotation, no crossing legs. Left shoulder: Limit range of motion except for pendulums for 3 weeks. Maintain sling except for hygeine. Discharge Orders/Prescriptions Prescriptions: New oxycodone 5 mg Tablet 5 mg PO Q8H PRN PRN (Reason: Pain Score 6-10) 5 Days Qty: 15 RF: 0 Continued potassium chloride 20 mEq tablet extended release 20 meq PO DAILY RF: 0 cholecalciferol (vitamin D3) 1,250 mcg (50,000 unit) capsule 1,000 unit PO DAILY RF: 0 acetaminophen 325 mg tablet 650 mg PO Q4H PRN PRN (Reason: Pain) RF: 0 cromolyn [Nasalcrom] 5.2 mg/spray (4 %) spray,non-aerosol 2 spray INTRANASAL DAILY RF: 0 metoprolol tartrate 50 mg tablet 50 mg PO BID RF: 0 terazosin 10 mg capsule 10 mg PO QHS RF: 0 losartan 100 mg tablet 100 mg PO DAILY RF: 0 Lupron Dep[place] (3 month) 22.5 mg syringe kit 11.25 mg IM [id number] RF: 0 atorvastatin 80 MG tablet 80 mg PO QHS RF: 0 cetirizine 10 MG capsule 10 mg PO DAILY RF: 0 enzalutamide 40 MG capsule 160 mg PO DAILY RF: 0 warfarin 7.5 mg Tablet 7.5 mg PO DAILY RF: 0 dexamethasone 6 mg tablet 6 mg PO DAILY RF: 0 doxazosin 8 mg tablet 8 mg PO DAILY RF: 0 nystatin [Nyamyc] 100,000 unit/gram powder 1 applic topical BID RF: 0 No Action cefdinir 300 mg capsule 300 mg PO BID RF: 0 guaifenesin [Mucus Relief ER] 600 mg tablet extended release 12hr 600 mg PO BID RF: 0 Referrals / Follow Up: Koby Oakes DO [STAFF PHYSICIAN] - 01/03/22 James Pisano Chi, MD [Primary Care Provider] - Within 2 Weeks Disposition Disposition (needs filled in before D/C Order can be placed): [facility] Facility Documented by User: Dr. Jame Colindres MD 12/17/21 17:26 Providers Date of Admission: 12/13/21 Date of Discharge: 12/17/21 Reason For Visit: PNEUMONIA / HIP FX / A FIB WITH RVR Medications at Discharge Home Medications atorvastatin 80 mg PO QHS 04/02/16 potassium chloride 20 mEq tablet,extended release 20 meq PO DAILY 12/03/18 cetirizine 10 mg PO DAILY 12/27/18 acetaminophen 325 mg tablet 650 mg PO Q4H PRN PRN tab 03/09/19 cromolyn 5.2 mg/spray (4 %) nasal spray 2 spray INTRANASAL DAILY ml 03/09/19 metoprolol tartrate 50 mg tablet 50 mg PO BID 03/15/19 terazosin 10 mg capsule 10 mg PO QHS 03/15/19 leuprolide (3 month) 22.5 mg (3 month) intramuscular syringe kit 11.25 mg IM [id number] 04/23/20 losartan 100 mg tablet 100 mg PO DAILY 04/23/20 cholecalciferol (vitamin D3) 1,250 mcg (50,000 unit) capsule 1,000 unit PO DAILY cap 10/29/20 enzalutamide 160 mg PO DAILY 01/05/21 warfarin 7.5 mg PO DAILY 11/25/21 dexamethasone 6 mg PO DAILY 12/14/21 doxazosin 8 mg PO DAILY 12/14/21 nystatin [Nyamyc] 1 applic TOPICAL BID 12/14/21 cefdinir 300 mg PO BID 12/17/21 guaifenesin [Mucus Relief ER] 600 mg PO BID 12/17/21 oxycodone 5 mg PO Q8H PRN PRN 5 Days #15 tab 12/17/21 Hospital Course Summary of Care Provided Hospital Course: This patient was seen in conjunction with JESS Mai. I have independently interviewed and examined the patient and reviewed pertinent history, examination findings, laboratory and plan of management. I have reviewed the note and agree with the documented findings with the few additional points. In brief, patient is admitted for mechanical fall with consequent left displaced transcervical femoral neck fracture and left humeral fracture. X-rays were reviewed and shows impacted transcervical fracture of proximal left femur with cephalic migration of distal fracture segment. Shoulder x-ray shows non displaced transverse fracture of surgical neck of proximal left humerus patient also most probably pathological from osteoporosis. Patient also had pneumonia most likely community-acquired pneumonia. On ceftriaxone and azithromycin. A. fib with RVR, rate is controlled. Coumadin resumed. Hypotension resolved. During previous hospitalization patient was tested positive for COVID-19 and treated with dexamethasone. He was also found to have acute fracture of L4 vertebra on MRI for not able to stand. Patient was discharged to SNF at that time. Patient has right arm PICC line. It was on 12/15 and PICC terminates in the mid SVC. Patient went to TCU with PICC line. Patient is difficult venipuncture. Discharge medication reconciliation done. Discharge follow-up instructions completed. Discharge process discussed with the patient and all questions were answered to patient's satisfaction. Total time spent, exact 35 minutes on discharge meds reconciliation, examination, coordination of care with nurses and ancillary staff, review of imaging and blood test and discussion with the patient on follow-up instructions I spent 20 minutes, more than half time and JESS Chavez spent 15 minutes I have discussed my assessment with JESS Mai and orders have been reviewed. Physical Exam Narrative Physical exam. Left hip and left shoulder pain is better. Discontinue Gutierrez catheter and manager monitoring. General: Alert, Oriented x3, Cooperative HEENT: Atraumatic, PERRLA, EOMI, Normocephalic Oral: No Gingival or Mucosal Lesions/ Ulcerations Neck: Supple, No JVD, Negative Carotid Bruits Lungs: Air entry diminished in bilateral lung bases. No crepitation/rhonchi Cardiovascular: Irregular rhythm, A. fib, Normal S1, Normal S2, No murmurs Abdomen: Bowel Sounds sluggish, Soft, Non Tender, Non-Distended : Gutierrez catheter, clear urine no renal angle tenderness. No suprapubic tenderness. Extremities: Right arm PICC line. Left upper extremity, dependent edema, Capillary Refill Less than 3 Seconds Skin: No rashes, No breakdown Musculoskeletal: Left hip surgical dressing is dry with mild fullness. No deep tenderness. ROM restricted. Left upper extremity in sling. Neurological: Cranial nerves II-XII grossly intact, DTR 2+/4 and Symmetrical, Neuro grossly intact Psych/Mental Status: Flat affect ABG / Lab / Microbiology Data Result Diagrams: 12/17/21 04:17 12/17/21 04:17 Discharge Plan Admission Admit Date/Time: 12/13/21 16:13 Primary Reason for Your Visit: Fall w/ left shoulder + left hip fracture. Attending Provider: Jame Colindres Primary Care Provider: James Pisano Chi Consulting Providers: Koby Oakes Instructions Additional Instructions / Restrictions: Left hip: Okay to remove silver surgical dressing on postoperative day #7 leave open to air if no drainage. Otherwise, cover with dry sterile dressing changes daily as needed. Posterior hip precautions-no flexion greater than 70 degrees of the hip, no internal rotation, no crossing legs. Left shoulder: Limit range of motion except for pendulums for 3 weeks. Maintain sling except for hygeine. Discharge Orders/Prescriptions Prescriptions: New oxycodone 5 mg Tablet 5 mg PO Q8H PRN PRN (Reason: Pain Score 6-10) 5 Days Qty: 15 RF: 0 Continued potassium chloride 20 mEq tablet extended release 20 meq PO DAILY RF: 0 cholecalciferol (vitamin D3) 1,250 mcg (50,000 unit) capsule 1,000 unit PO DAILY RF: 0 acetaminophen 325 mg tablet 650 mg PO Q4H PRN PRN (Reason: Pain) RF: 0 cromolyn [Nasalcrom] 5.2 mg/spray (4 %) spray,non-aerosol 2 spray INTRANASAL DAILY RF: 0 metoprolol tartrate 50 mg tablet 50 mg PO BID RF: 0 terazosin 10 mg capsule 10 mg PO QHS RF: 0 losartan 100 mg tablet 100 mg PO DAILY RF: 0 Lupron Depot (3 month) 22.5 mg syringe kit 11.25 mg IM [id number] RF: 0 atorvastatin 80 MG tablet 80 mg PO QHS RF: 0 cetirizine 10 MG capsule 10 mg PO DAILY RF: 0 enzalutamide 40 MG capsule 160 mg PO DAILY RF: 0 warfarin 7.5 mg Tablet 7.5 mg PO DAILY RF: 0 dexamethasone 6 mg tablet 6 mg PO DAILY RF: 0 doxazosin 8 mg tablet 8 mg PO DAILY RF: 0 nystatin [Nyamyc] 100,000 unit/gram powder 1 applic topical BID RF: 0 No Action cefdinir 300 mg capsule 300 mg PO BID RF: 0 guaifenesin [Mucus Relief ER] 600 mg tablet extended release 12hr 600 mg PO BID RF: 0 Referrals / Follow Up: Koby Oakes DO [STAFF PHYSICIAN] - 01/03/22 James Pisano Chi, MD [Primary Care Provider] - Within 2 Weeks Disposition Disposition (needs filled in before D/C Order can be placed): [facility] Facility Charges/Coding Visit Charges Inpatient E&M: 37364 Disch Hosp
--- NOTE | 2021-12-17 15:17 | NURSING ---
Report called to [facility]
== END 2021-12-17 15:53 | disposition skilled nursing facility (03) | DRG 853 ==
LOC: ED 15:22 → PCU 16:32
PROVIDERS: Physician Assistant; Student in an Organized Health Care Education/Training Program; Admitting Provider Family Medicine; Emergency Provider Emergency Medicine; PCP Family Medicine Geriatric Medicine; Visit Provider Internal Medicine
PROC: 0SRS0JA Replacement of Left Hip Joint, Femoral Surface with Synthetic Substitute, Uncemented, Open Approach (ICD-10-PCS; CPT 27125; principal; 2021-12-15 10:00)
DX: A41.9 Sepsis, unspecified organism (principal); S72.002A Fracture of unspecified part of neck of left femur, initial encounter for closed fracture; J18.9 Pneumonia, unspecified organism; S72.032A Displaced midcervical fracture of left femur, initial encounter for closed fracture; E87.2 Acidosis; I48.11 Longstanding persistent atrial fibrillation; S42.215A Unspecified nondisplaced fracture of surgical neck of left humerus, initial encounter for closed fracture; I95.9 Hypotension, unspecified; I25.10 Atherosclerotic heart disease of native coronary artery without angina pectoris; I10 Essential (primary) hypertension; E78.5 Hyperlipidemia, unspecified; W07.XXXA Fall from chair, initial encounter; Z87.891 Personal history of nicotine dependence; Z79.01 Long term (current) use of anticoagulants; Z79.899 Other long term (current) drug therapy; Y93.9 Activity, unspecified; Y99.9 Unspecified external cause status; Y92.9 Unspecified place or not applicable
CPT/HCPCS: 36415; 36569; 51702; 71045; 72170; 73030; 73502; 80048; 80053; 81001; 83605; 84484; 85025; 85610; 85730; 86850; 86900; 86901; 87040; 87426; 87804; 93005; 97110; 97163; 97167; 97530; 97535; 99251; 99285; C1776; J7030; A4216; G0463; J2405

== ENCOUNTER 2021-12-17 15:50 | Inpatient (IN) | payer MEDICARE, SELFPAY ==
[2021-12-17 16:14] VITALS: BP 133/68; PULSE 103; RESP 18; TEMP 36.9; O2SAT 98; BMI 39.9
[2021-12-17 18:23] VITALS: PULSE 103
[2021-12-17] MEDS: Cefdinir 300 MG Capsule PO (18:23)
[2021-12-17] MEDS: guaiFENesin 600 MG Tablet PO (18:23)
[2021-12-17] MEDS: Metoprolol Tartrate 50 MG Tablet PO (18:23)
[2021-12-17] MEDS: Nystatin Powder 15gm Bottle 1 APPLIC TOPICAL (18:26)
[2021-12-17] MEDS: 0.9% Saline Lock 10 ML Syringe IV (20:00)
[2021-12-17] MEDS: Atorvastatin Calcium 80 MG Tablet PO (20:00)
--- NOTE | 2021-12-17 20:31 | HP.PCM_ITS ---
HPI - General General Date of Admission: 12/17/21 HPI Narrative 12/13/2021 MEENAKSHI NI, is a 76 Male who presents to [facility] with fall. 12/13/2021 EKG atrial fibrillation with premature ventricular or aberrantly conducted complexes. Fall, left shoulder pain, left hip pain. Went to sit on chair, missed, fell. Chills, shivers. 11/26/2021 Positive covid19. Chest X-ray showed left lower lobe infiltrate. X-ray showed left hip fracture, left humerus fracture. IV fluids given for low blood pressure. Rocephin, Azithromycin given for pneumonia. 12/13/2021 Admit to Hospital. Prepare for surgery, hold coumadin for left hip fracture. PT/OT for debility. Rocephin, Azithromycin for sepsis, pneumonia. 12/14/2021 Pain controlled. 12/15/2021 No acute distress. Left humerus fractured treated with sling. Blood cultures negative to date. Continue Rocephin, Azithromycin for pneumonia. 12/15/2021 Dr. Oakes performed left hip hemiarthroplasty. 12/16/2021 Significant postoperative left hip pain. Continue Rocephin, Azithromycin. 12/17/2021 Cefdinir to complete 7 day course for pneumonia. 12/17/2021 Admit to TCU with debility, here for rehabilitation, strengthening, prior to discharge home alone. [facility] Medical History (Updated 12/17/21 @ 20:[address] 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 Longstanding persistent atrial fibrillation Sepsis Traumatic hemothorax (12/30/18) Home Medications atorvastatin 80 mg PO QHS 04/02/16 [History Last Taken 11/24/21 22:00 80 mg] potassium chloride 20 mEq tablet,extended release 20 meq PO DAILY 12/03/18 [History Last Taken 11/25/21 10:00 20 meq] cetirizine 10 mg PO DAILY 12/27/18 [History Last Taken 11/25/21 10:00 10 mg] acetaminophen 325 mg tablet 650 mg PO Q4H PRN PRN tab 03/09/19 [History Last Taken 11/24/21 21:00 650] cromolyn 5.2 mg/spray (4 %) nasal spray 2 spray INTRANASAL DAILY ml 03/09/19 [History Last Taken 11/25/21 10:00 2 sprays] metoprolol tartrate 50 mg tablet 50 mg PO BID 03/15/19 [History Last Taken 11/25/21 10:00 50 mg] terazosin 10 mg capsule 10 mg PO QHS 03/15/19 [History Last Taken 11/24/21 22:00 10 mg] leuprolide (3 month) 22.5 mg (3 month) intramuscular syringe kit 11.25 mg IM [id number] 04/23/20 [History Last Taken 08/26/21] losartan 100 mg tablet 100 mg PO DAILY 04/23/20 [History Last Taken 11/25/21 10:00 100] cholecalciferol (vitamin D3) 1,250 mcg (50,000 unit) capsule 1,000 unit PO DAILY cap 10/29/20 [History Last Taken 11/24/21 22:00 1000 units] enzalutamide 160 mg PO DAILY 01/05/21 [History Last Taken 11/24/21 22:00 160 mg] warfarin 7.5 mg PO DAILY 11/25/21 [History Last Taken 11/24/21 21:00 7.5mg] dexamethasone 6 mg PO DAILY 12/14/21 [History Last Taken Unknown] doxazosin 8 mg PO DAILY 12/14/21 [History Last Taken Unknown] nystatin [Nyamyc] 1 applic TOPICAL BID 12/14/21 [History Last Taken Unknown] cefdinir 300 mg PO BID 12/17/21 [History Last Taken Unknown] guaifenesin [Mucus Relief ER] 600 mg PO BID 12/17/21 [History Last Taken Unknown] oxycodone 5 mg PO Q8H PRN PRN 5 Days #15 tab 12/17/21 [Rx Last Taken Unknown] Allergy/AdvReac Type Severity Reaction Status Date / Time amiodarone AdvReac Intermediate It did not Verified 11/25/21 12:16 work, also bad dreams and neuropathy Family History Father , Age 57 Myocardial infarction CAD (coronary artery disease) ETOH abuse Mother , Age 47, of bone cancer Bone cancer Brother , age 45, of AIDS AIDS (acquired immune deficiency syndrome) Surgical History (Updated 12/17/21 @ 20:[address] James Pisano MD) H/O cervical spine surgery (01/2020) H/O coronary artery bypass surgery (11/26/98) History of left heart catheterization (11/26/98) History of left hip hemiarthroplasty History of thoracic spinal fusion (12/30/18) Social History (Updated 12/17/21 @ 20:[address] James Pisano MD) household members: none Smoking Status: Former smoker alcohol intake: never substance use type: does not use ROS Constitutional Constitutional: Denies chills, fever(s) or weight gain ENT HEENT: Denies headache(s), nasal congestion or nasal discharge Cardiovascular Cardiovascular: Denies chest pain or palpitations Respiratory/Chest Respiratory/Chest: Denies cough, excessive phlegm production or shortness of breath with exertion Gastrointestinal Gastrointestinal: Denies abdominal pain, nausea or vomiting Genitourinary Genitourinary: Denies dysuria Musculoskeletal Musculoskeletal: Denies joint pain or joint swelling Integumentary Integumentary: Denies rash or wounds Neurologic Neurologic: Denies focal weakness, numbness or tingling Psychiatric Psychiatric: Denies anxiety, auditory hallucinations, depression, homicidal ideation or suicidal ideation Vital Signs Vital Signs Vital Signs: 12/17/21 16:14 12/17/21 18:23 Temperature 98.4 F Temperature Source Temporal Pulse Rate 103 H 103 H Pulse Rhythm Irregular Pulse Strength Normal (2+) Respiratory Rate 18 Respiratory Effort Normal Non-Labored Respiratory Depth Normal Respiratory Pattern Normal Blood Pressure 133/68 H Blood Pressure Mean 89 Blood Pressure Source Monitor Blood Pressure Position Semi-Fowlers Blood Pressure Location Right Forearm Pulse Ox 98 Oxygen Delivery Method Room Air Weight Weight: 133.583 kg Body Mass Index (BMI) 39.9 Physical Exam Const alert and oriented x3 General Appearance: cooperative HEENT normocephalic Eyes PERRL and EOMs intact bilaterally Neck supple, no JVD and no carotid bruits Resp normal respiratory effort, normal air movement and clear to auscultation bilaterally Cardio regular rate and regular rhythm GI normal to inspection, nondistended, normoactive bowel sounds, non-tender and non-distended Extremity normal capillary refill General Extremity: Negative for edema Skin no rashes or lesions noted General Skin Exam: no breakdown Psych affect normal Appearance: appropriate Assessment & Plan Assessment/Plan (1) Debility: (2) Sepsis: (3) Pneumonia: (4) Closed left hip fracture: (5) Closed left humeral fracture: (6) COVID-19: (7) Hyperlipidemia: (8) Hypokalemia: (9) Coronary artery disease: (10) Benign prostate hyperplasia: (11) Prostate cancer: (12) Hypertension: (13) Vitamin D deficiency: (14) Atrial fibrillation: PLAN: 76 year old male with below past medical history hospitalized for left hip fracture, underwent left hip hemiarthroplasty 12/15/[address] Oakes, left humerus fracture treated with sling, complicated by sepsis, pneumonia, admitted to TCU with debility, here for rehabilitation, strengthening, prior to discharge home alone. * Debility - PT/OT. * Pain - Tylenol 1000mg q8, Oxycodone 5mg q4h prn pain (4-10). * Bowel - Miralax 17gm daily, senna/colace 2 tablets bid, Dulcolax 10mg daily prn. * Adult immunization - Administer prevnar 13, pneumovax 23, fluzone, covid19 va ccine as appropriate. * DVT prophylaxis - Not necessary, on warfarin. * Hyperlipidemia - Atorvastatin 80mg qhs. * Pneumonia - Cefdinir 300mg bid thru 12/21/2021. * Vitamin d deficiency - D3 25mcg daily. * Allergic rhinitis - Loratadine 10mg daily, Cromolyn 2 spray daily. * BPH - Doxazosin 8mg daily. * Prostate cancer - Enzalutamide 160mg daily. * Congestion - Mucinex 600mg bid. * Coronary artery Disease - Metoprolol 50mg bid, Losartan 100mg daily. * Skin irritation - Calmoseptine topical tid. * Tinea Corporis - Nystatin powder topical bid. * Hypokalemia - KCL 20meq daily. * Atrial fibrillation - Metoprolol 50mg bid, Warfarin 7.5mg daily, follow inr. * Left humerus fracture - nwb, sling.
[2021-12-17] MEDS: Acetaminophen 500 MG Tablet 1000 MG PO (21:17)
[2021-12-17] MEDS: Menthol/Lanolin/Calamine/Znox 113 GM Tube 1 APPLIC TOPICAL (21:18)
[2021-12-17] MEDS: ENZALUTAMIDE 40 MG CAPSULE 160 MG PO (21:19)
--- NOTE | 2021-12-18 02:45 | NURSING ---
Gutierrez removed 12/17/21 at 11:20am. Patient has been incontinent of urine through the night.
[2021-12-18] MEDS: Cefdinir 300 MG Capsule PO ×2 (05:28→18:02)
[2021-12-18] MEDS: Menthol/Lanolin/Calamine/Znox 113 GM Tube 1 APPLIC TOPICAL ×3 (05:28→21:26)
[2021-12-18] MEDS: Cholecalciferol (VIT D3) 25 MCG TABLET (1,000 UNITS) PO (05:28)
[2021-12-18 05:29] VITALS: BP 116/61; PULSE 97
[2021-12-18] MEDS: Loratadine 10 MG Tablet PO (05:29)
[2021-12-18] MEDS: guaiFENesin 600 MG Tablet PO ×2 (05:29→18:01)
[2021-12-18] MEDS: Doxazosin 4 MG Tablet 8 MG PO (05:29)
[2021-12-18] MEDS: Losartan Potassium 100 MG Tablet PO (05:29)
[2021-12-18] MEDS: Metoprolol Tartrate 50 MG Tablet PO ×2 (05:29→18:01)
[2021-12-18] MEDS: Polyethylene Glycol 3350 17 GM PACKET PO (05:30)
[2021-12-18] MEDS: Senna/Docusate Sodium 1 Tablet 2 TABLET PO (05:30)
[2021-12-18] MEDS: Nystatin Powder 15gm Bottle 1 APPLIC TOPICAL ×2 (05:31→15:09)
[2021-12-18] MEDS: Acetaminophen 500 MG Tablet 1000 MG PO ×3 (05:31→21:26)
[2021-12-18] MEDS: Potassium Chloride Oral Tablet 20 MEQ PO (08:31)
[2021-12-18] MEDS: dexAMETHasone 4 MG Tablet 6 MG PO (08:31)
[2021-12-18 09:12] LABS: Absolute Lymphocyte Count 0.66 X10^3/uL (0.83-4.51); Absolute Neutrophil Count 5.3 X10^3/uL (2.0-7.7); Basophil# 0.01 X10^3/uL; Basophil% 0.2 % (0-1); Eosinophil# 0.24 X10^3/uL; Eosinophils% 3.6 % (0-5); Hematocrit 25.5 % (40-54); Hemoglobin 8.7 g/dL (13.0-16.5); Lymphocyte # 0.66 X10^3/ul (0.83-4.51); Mean Corp Hgb Conc 34.1 g/dL (32-36); Mean Corpuscular Hgb 30.2 pg (27.0-32.0); Mean Corpuscular Volume 88.5 fL (80-94); Mean Platelet Vol. 9.4 fl (6.2-12.0); Monocyte# 0.41 X10^3/uL; Monocyte% 6.2 % (0-10); NRBC Flagged by Analyzer 0 % (0-5); Neutrophil # 5.25 X10^3/uL (2.7-7.7); Neutrophil % 79.7 % (47-70); POSITIVE COUNT YES; Platelet Count 97 K/mm3 (150-450); RBC Distribution Width CV 13.6 % (11.6-14.6); RBC Distribution Width SD 44.1 fl (35.1-43.9); Red Blood Count 2.88 M/mm3 (4.6-6.2); White Blood Count 6.6 K/mm3 (4.4-11.0)
[2021-12-18 09:27] LABS: Anion Gap 4 (5-15); BUN 17 mg/dL (7-18); BUN/Creat Ratio 27.2 RATIO (10-20); Calcium,Total 8.2 mg/dL (8.5-10.1); Chloride 103 mmol/L (98-107); Creatinine, Serum 0.63 mg/dL (0.70-1.30); EST Glomerular Filtration Rate 133 mL/min (>60); Est Glom Filt Rate - Afr Amer 161 mL/min (>60); Estimated Creatinine Clearance 71.13 ml/min; Glucose 109 mg/dL (74-106); Potassium 3.8 mmol/L (3.5-5.1); Sodium Level 139 mmol/L (136-145)
[2021-12-18] MEDS: Tuberculin,Purif.prot.deriv. 50 TU/ML Vial 0.1 ML ID (09:50)
--- NOTE | 2021-12-18 14:48 | CASEMGMT ---
Social Work SW met w/pt, reviewed code status, pt confirms is a full code. Pt completed the MOLST form, communication to physician, form placed in chart. Pt's plan is to return home from TCU, pt states that this is not unreasonable to think he can return home from here. Pt open to home health and any needed DME. SW reviewed that insurance will authorize a certain amount of time for pt to be here, pt is aware of this as he was just in [facility] recently. SW let pt know there will be a meeting next week regarding his progress and to start talking about goals for discharge. Pt states understanding. We also spoke about LW/POA, pt may want to complete the documents while here, needs to speak w/his brother about it. SW encouraged pt to speak w/his brother and SW here can assist in pt completing LW/POA, pt states understanding. SW will continue to follow. TYSHAWN Powers
[2021-12-18 15:13] VITALS: BP 157/40; PULSE 99; RESP 18; TEMP 35.9; O2SAT 92
--- NOTE | 2021-12-18 15:34 | NURSING ---
Surgical mepilex saturated. New surgical dressing applied. Small amount of active serous drainage noted. [place] and incision intact. Incontinent of urine and small BM. Attends changed. Heels elevated in bed. Lt arm remains in sling. Resident with no complaints at this time.
[2021-12-18 18:01] VITALS: PULSE 99
[2021-12-18] MEDS: 0.9% Saline Lock 10 ML Syringe IV (18:09)
--- NOTE | 2021-12-18 18:14 | NURSING ---
Pt incontinent of urine. Seems to continuously be leaking. Bladder scanned for 313ml of urine. Will continue to monitor and bladder scan Q 8hrs and update Dr Pisano.
[2021-12-18] MEDS: Atorvastatin Calcium 80 MG Tablet PO (21:26)
[2021-12-18] MEDS: ENZALUTAMIDE 40 MG CAPSULE 160 MG PO (21:27)
[2021-12-19 05:53] VITALS: BP 137/89; PULSE 91
[2021-12-19] MEDS: Acetaminophen 500 MG Tablet 1000 MG PO ×3 (05:53→21:00)
[2021-12-19] MEDS: Metoprolol Tartrate 50 MG Tablet PO ×2 (05:53→17:05)
[2021-12-19] MEDS: guaiFENesin 600 MG Tablet PO ×2 (05:53→17:05)
[2021-12-19] MEDS: Cefdinir 300 MG Capsule PO ×2 (05:53→17:04)
[2021-12-19] MEDS: Loratadine 10 MG Tablet PO (05:54)
[2021-12-19] MEDS: Cholecalciferol (VIT D3) 25 MCG TABLET (1,000 UNITS) PO (05:54)
[2021-12-19] MEDS: Menthol/Lanolin/Calamine/Znox 113 GM Tube 1 APPLIC TOPICAL ×3 (05:54→21:02)
[2021-12-19] MEDS: Doxazosin 4 MG Tablet 8 MG PO (05:54)
[2021-12-19] MEDS: Losartan Potassium 100 MG Tablet PO (05:54)
[2021-12-19] MEDS: Nystatin Powder 15gm Bottle 1 APPLIC TOPICAL ×2 (05:55→17:05)
--- NOTE | 2021-12-19 07:19 | NURSING ---
Patient retaining urine on bladder scan this AM, over 700cc in bladder and patient unable to void more than a few drops. Updated Dr. Pisano, order to start flomax and insert correia. Correia inserted, return on clear straw colored urine.
[2021-12-19 08:35] LABS: International Normalized Ratio 1.4; Prothrombin Time (Protime)PT. 16.6 SECONDS (11.7-14.9)
[2021-12-19] MEDS: Potassium Chloride Oral Tablet 20 MEQ PO (08:47)
--- NOTE | 2021-12-19 09:33 | PCM.PN.RX ---
Progress Note - Pharmacy Subjective: [] TCU Admission Objective: Allergies amiodarone Adverse Reaction (Intermediate, Verified 11/25/21 12:16) It did not work, also bad dreams and neuropathy Current Medications Generic Name Dose Route Start Last Admin Trade Name Freq PRN Reason Stop Dose Admin Acetaminophen 1,000 mg 12/18/21 06:00 12/19/21 05:53 Acetaminophen 500 Mg Tablet PO 1,000 mg Q8 IVET Administration Atorvastatin Calcium 80 mg 12/17/21 22:00 12/18/21 21:26 Atorvastatin Calcium 80 Mg Tablet PO 80 mg QHS IVET Administration Bisacodyl 10 mg 12/17/21 20:47 Bisacodyl 5 Mg Tablet PO DAILY PRN PRN Constipation Calamine/Phenol 1 applic 12/17/21 22:00 12/19/21 05:54 Menthol/Lanolin/Calamine/Znox 113 Gm Tube TOPICAL 1 applic TID IVET Administration Protocol Cefdinir 300 mg 12/17/21 18:00 12/19/21 05:53 Cefdinir 300 Mg Capsule PO 12/21/21 18:01 300 mg BID IVET Administration Cholecalciferol 25 mcg 12/18/21 06:00 12/19/21 05:54 Cholecalciferol (Vit D3) 25 Mcg Tablet (1,000 Units) PO 25 mcg DAILY IVET Administration Doxazosin Mesylate 8 mg 12/18/21 06:00 12/19/21 05:54 Doxazosin 4 Mg Tablet PO 8 mg DAILY IVET Administration Guaifenesin 600 mg 12/17/21 18:00 12/19/21 05:53 Guaifenesin 600 Mg Tablet PO 600 mg BID IVET Administration Heparin Sodium (Beef Lung) 50 units 12/18/21 15:37 Heparin Pf Lock 10 Units/Ml 50 Units/5 Ml Syringe IV UD PRN PICC Line Heparin Flush Loratadine 10 mg 12/18/21 06:00 12/19/21 05:54 Loratadine 10 Mg Tablet PO 10 mg DAILY IVET Administration Losartan Potassium 100 mg 12/18/21 06:00 12/19/21 05:54 Losartan Potassium 100 Mg Tablet PO 100 mg DAILY IVET Administration Metoprolol Tartrate 50 mg 12/17/21 18:00 12/19/21 05:53 Metoprolol Tartrate 50 Mg Tablet PO 50 mg BID IVET Administration Nystatin 1 applic 12/17/21 18:00 12/19/21 05:55 Nystatin Powder 15gm Bottle TOPICAL 1 applic BID IVET Administration Protocol Oxycodone HCl 5 mg 12/17/21 20:48 Oxycodone 5 Mg Tablet PO Q4H PRN PRN Pain Score 4-10 Polyethylene Glycol 17 gm 12/18/21 06:00 12/19/21 05:55 Polyethylene Glycol 3350 17 Gm Packet PO Not Given DAILY IVET Potassium Chloride 20 meq 12/18/21 08:00 12/19/21 08:47 Potassium Chloride Oral Tablet 20 Meq PO 20 meq DAILYCM IVET Administration Senna/Docusate Sodium 2 tablet 12/18/21 06:00 12/19/21 05:55 Senna/Docusate Sodium 1 Tablet PO Not Given BID IVET Sodium Chloride 10 - 40 ml 12/17/21 16:21 12/18/21 18:09 0.9% Saline Lock 10 Ml Syringe IV 20 ml UD PRN Administration SALINE FLUSH Sodium Chloride 10 - 40 ml 12/18/21 15:37 0.9% Saline Lock 10 Ml Syringe IV UD PRN Open End PICC Flush Sodium Chloride 10 - 40 ml 12/18/21 15:37 0.9 % Nacl (Sterile) Posiflush 10 Ml IV UD PRN Port access or dressing change Tuberculin PPD 0.1 ml 12/25/21 10:00 Tuberculin,Purif.Prot.Deriv. 50 Tu/Ml Vial ID 12/25/21 10:01 X1 ONE Warfarin Sodium 7.5 mg 12/18/21 17:00 12/18/21 18:01 Warfarin 7.5 Mg Tablet PO 7.5 mg 1700 IVET Administration Problem List (Last Reviewed 12/17/21 @ 20:[address] James Pisano MD) Atrial fibrillation (Acute) Vitamin D deficiency (Acute) Hypertension (Chronic) Prostate cancer (Acute) Benign prostate hyperplasia (Acute) Coronary artery disease (Acute) Hypokalemia (Acute) Hyperlipidemia (Acute) COVID-19 (Acute) Closed left humeral fracture (Acute) Closed left hip fracture (Acute) Pneumonia (Acute) Sepsis (Acute) Debility (Acute) Vital Signs Temp Pulse Resp BP Pulse Ox 96.7 F L 91 18 137/89 H 92 12/18/21 15:13 12/19/21 05:53 12/18/21 15:13 12/19/21 05:53 12/18/21 15:13 Oxygen Flow Rate (L/min) 2 Oxygen Delivery Method Nasal Cannula Weight: 133.583 kg Body Mass Index (BMI) 39.9 Sodium 139 mmol/L (136-145) 12/18/21 08:55 Potassium 3.8 mmol/L (3.5-5.1) 12/18/21 08:55 Chloride 103 mmol/L (98-107) 12/18/21 08:55 Carbon Dioxide 32.0 mmol/L (21.0-32.0) 12/18/21 08:55 Anion Gap 4 (5-15) L 12/18/21 08:55 BUN 17 mg/dL (7-18) 12/18/21 08:55 Creatinine 0.63 mg/dL (0.70-1.30) L 12/18/21 08:55 Est GFR (MDRD) Af Amer 161 mL/min (>60) 12/18/21 08:55 Est GFR (MDRD) Non-Af 133 mL/min (>60) 12/18/21 08:55 BUN/Creatinine Ratio 27.2 RATIO (10-20) H 12/18/21 08:55 Glucose 109 mg/dL (74-106) H 12/18/21 08:55 Assessment/Plan: 1) Pain: Acetaminophen 1000mg po q8h scheduled, Oxycodone 5mg po q4h prn for pain 4-10. Please continue to monitor prn usage and for signs/symptoms of increased pain. --Note: Pt has 0 prn doses of Oxycodone to date *2) Hyperlipidemia: Atorvastatin 80mg po qhs. Pt's LFTs are within normal limits. Please continue to monitor. The most recent Lipid Panel I could find in the pt's chart was from 2013. Please consider a yearly Lipid Panel while the pt is taking a statin. Thanks 3) Allergic Rhinitis: Loratadine 10mg po daily. Please continue to monitor for signs/symptoms of allergic rhinitis 4) Hypokalemia: Potassium Chloride 20meq po daily with food. Pt's most recent K+ was 3.8 on 12/18/21. Please continue to monitor labs. 5) CAD, AFib: Metoprolol Tartrate 50mg po bid, Losartan 100mg po daily, Warfarin 7.5mg po daily. Pt's K+ is 3.8, SrCr is 0.63, CrCl is 71.13, BUN is 17, and INR is 1.4. Please continue to monitor labs. Pt's average pulse rate is 92.3, pulse rhythm is irregular, and pulse strength is normal (2+). Please continue to monitor pt's pulse. Pt's average BP is 135.75/64.5. Please continue to monitor pt's BP. 6) Pneumonia: Cefdinir 300mg po bid through 12/21/21, Guaifenesin 600mg po bid. Please continue to monitor for signs/symptoms of pneumonia (coughing, congestion, temperature, elevated wbc, sob/wheezing, etc...). --Note: pt's temp has been within normal limits, wbc are within normal limits. 7) BPH: Doxazosin 8mg po daily. Pt has had increased urinary retention. New order for Tamsulosin and Gutierrez catheter per nursing notes 12/19/21. 8) Prostate Cancer: Enzalutamide 160mg po daily. Please continue to monitor pt for urinary retention and signs/symptoms of prostate cancer. Psychotropic Medications: none Unnecessary Medications: none Bowel Regimen: Bisacodyl 10mg po daily prn for constipation, Miralax 17gm po daily, Senna/Docusate 2 tablets po bid. Pt has refused 1 of 2 Miralax doses, and 2 of 3 Senna/Docusate doses. Please continue to monitor pt refusals. If pt continues to refuse Miralax and/or Senna/Docusate doses, please consider changing to prn usage. Thanks Date of Note:: 12/19/21
[2021-12-19 10:49] VITALS: PULSE 100; RESP 18; O2SAT 94
[2021-12-19] MEDS: oxyCODONE 5 MG Tablet PO ×2 (11:02→19:40)
[2021-12-19 13:40] VITALS: BP 121/62; PULSE 102; RESP 18; TEMP 35.9; O2SAT 92
--- NOTE | 2021-12-19 15:48 | CHAPLAIN ---
Type of Pastoral Visit _x__ Initial Visit ___ Follow-up Visit ___ On-call Visit ___ General Patient Visit ___ Spiritual Assessment ___ Family Conference ___ Bereavement ___ Rapid Response ___ Code Blue ___ Other (describe below) Pastoral Care Referral From _x__ Patient ___ Family ___ Nurse ___ Physician ___ Test Desk Operator ___ Procurement Professional Logistics ___ Other (describe below) Sacrament/Intervention _x__ Active listening ___ Anointing ___ Religion ___ Bereavement ___ Communion _x__ Tiff exploration ___ _x__ Life review _x__ Prayer ___ Reconciliation ___ Sacrament of Sick _x__ Supportive presence ___ Wedding ___ Other (describe below) Pastoral Comments lengthy conversation with life review, status of health, changes in work and purpose, tiff perspectives, and current feelings; pt welcomes presence and prayer; pt also prayed for himself; pt has friends but very limited in family support; 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
[2021-12-19 17:05] VITALS: PULSE 100
[2021-12-19] MEDS: 0.9% Saline Lock 10 ML Syringe IV (17:08)
[2021-12-19] MEDS: Atorvastatin Calcium 80 MG Tablet PO (20:55)
[2021-12-19] MEDS: ENZALUTAMIDE 40 MG CAPSULE 160 MG PO (21:00)
[2021-12-20 06:29] VITALS: BP 140/81; PULSE 109
[2021-12-20 06:31] VITALS: PULSE 109
[2021-12-20] MEDS: Cholecalciferol (VIT D3) 25 MCG TABLET (1,000 UNITS) PO (06:31)
[2021-12-20] MEDS: Cefdinir 300 MG Capsule PO ×2 (06:31→16:53)
[2021-12-20] MEDS: Metoprolol Tartrate 50 MG Tablet PO ×2 (06:31→16:53)
[2021-12-20] MEDS: Losartan Potassium 100 MG Tablet PO (06:32)
[2021-12-20] MEDS: Senna/Docusate Sodium 1 Tablet 2 TABLET PO (06:32)
[2021-12-20] MEDS: Doxazosin 4 MG Tablet 8 MG PO (06:32)
[2021-12-20] MEDS: Menthol/Lanolin/Calamine/Znox 113 GM Tube 1 APPLIC TOPICAL ×3 (06:32→22:05)
[2021-12-20] MEDS: guaiFENesin 600 MG Tablet PO ×2 (06:32→16:53)
[2021-12-20] MEDS: Loratadine 10 MG Tablet PO (06:32)
[2021-12-20] MEDS: Acetaminophen 500 MG Tablet 1000 MG PO ×3 (06:32→22:08)
[2021-12-20] MEDS: Nystatin Powder 15gm Bottle 1 APPLIC TOPICAL ×2 (06:33→16:54)
[2021-12-20] MEDS: Polyethylene Glycol 3350 17 GM PACKET PO (06:33)
[2021-12-20 06:34] LABS: International Normalized Ratio 1.7; Prothrombin Time (Protime)PT. 18.8 SECONDS (11.7-14.9)
[2021-12-20] MEDS: Potassium Chloride Oral Tablet 20 MEQ PO (08:51)
[2021-12-20 14:19] VITALS: BP 105/55; PULSE 71; RESP 18; TEMP 36.8; O2SAT 97
[2021-12-20] MEDS: oxyCODONE 5 MG Tablet PO (16:52)
[2021-12-20 16:53] VITALS: PULSE 71
[2021-12-20] MEDS: 0.9% Saline Lock 10 ML Syringe IV (16:53)
[2021-12-20 21:57] VITALS: O2SAT 97
[2021-12-20] MEDS: Atorvastatin Calcium 80 MG Tablet PO (22:04)
[2021-12-20] MEDS: ENZALUTAMIDE 40 MG CAPSULE 160 MG PO (22:05)
[2021-12-21] MEDS: 0.9% Saline Lock 10 ML Syringe IV ×2 (04:54→18:21)
[2021-12-21] MEDS: Menthol/Lanolin/Calamine/Znox 113 GM Tube 1 APPLIC TOPICAL ×3 (04:54→21:17)
[2021-12-21] MEDS: oxyCODONE 5 MG Tablet PO ×2 (04:56→11:14)
[2021-12-21 04:57] VITALS: BP 134/80; PULSE 105
[2021-12-21] MEDS: Metoprolol Tartrate 50 MG Tablet PO ×2 (04:57→17:32)
[2021-12-21] MEDS: Loratadine 10 MG Tablet PO (04:57)
[2021-12-21] MEDS: Cefdinir 300 MG Capsule PO ×2 (04:57→17:33)
[2021-12-21] MEDS: Cholecalciferol (VIT D3) 25 MCG TABLET (1,000 UNITS) PO (04:57)
[2021-12-21] MEDS: guaiFENesin 600 MG Tablet PO ×2 (04:57→17:32)
[2021-12-21] MEDS: Doxazosin 4 MG Tablet 8 MG PO (04:58)
[2021-12-21] MEDS: Senna/Docusate Sodium 1 Tablet 2 TABLET PO ×2 (04:58→17:31)
[2021-12-21] MEDS: Polyethylene Glycol 3350 17 GM PACKET PO (04:58)
[2021-12-21] MEDS: Acetaminophen 500 MG Tablet 1000 MG PO ×3 (04:58→21:08)
[2021-12-21] MEDS: Losartan Potassium 100 MG Tablet PO (04:58)
[2021-12-21] MEDS: Nystatin Powder 15gm Bottle 1 APPLIC TOPICAL ×2 (05:05→21:17)
[2021-12-21 06:48] VITALS: O2SAT 96
[2021-12-21 07:12] LABS: Prothrombin Time (Protime)PT. 21.6 SECONDS (11.7-14.9)
[2021-12-21] MEDS: Potassium Chloride Oral Tablet 20 MEQ PO (08:31)
[2021-12-21 12:44] VITALS: O2SAT 95
[2021-12-21 15:02] VITALS: BP 128/74; PULSE 95; RESP 16; TEMP 36.3; O2SAT 98
[2021-12-21 17:32] VITALS: BP 123/70; PULSE 96
--- NOTE | 2021-12-21 18:43 | NURSING ---
Picc Flushed with 10 cc NS flushed but no blood return noted for both lumens.
[2021-12-21] MEDS: Atorvastatin Calcium 80 MG Tablet PO (21:06)
[2021-12-21] MEDS: ENZALUTAMIDE 40 MG CAPSULE 160 MG PO (21:10)
[2021-12-22 06:13] VITALS: BP 148/85; PULSE 108
[2021-12-22] MEDS: Losartan Potassium 100 MG Tablet PO (06:13)
[2021-12-22] MEDS: Metoprolol Tartrate 50 MG Tablet PO ×2 (06:13→18:29)
[2021-12-22] MEDS: Loratadine 10 MG Tablet PO (06:14)
[2021-12-22] MEDS: guaiFENesin 600 MG Tablet PO ×2 (06:14→18:29)
[2021-12-22] MEDS: Acetaminophen 500 MG Tablet 1000 MG PO ×3 (06:14→21:56)
[2021-12-22] MEDS: Doxazosin 4 MG Tablet 8 MG PO (06:15)
[2021-12-22] MEDS: Cholecalciferol (VIT D3) 25 MCG TABLET (1,000 UNITS) PO (06:15)
[2021-12-22] MEDS: Menthol/Lanolin/Calamine/Znox 113 GM Tube 1 APPLIC TOPICAL ×3 (06:29→22:05)
[2021-12-22] MEDS: Nystatin Powder 15gm Bottle 1 APPLIC TOPICAL ×2 (06:29→18:30)
[2021-12-22 06:41] VITALS: O2SAT 91
[2021-12-22] MEDS: Potassium Chloride Oral Tablet 20 MEQ PO (08:04)
[2021-12-22 08:25] LABS: International Normalized Ratio 2.4; Prothrombin Time (Protime)PT. 25.1 SECONDS (11.7-14.9)
--- NOTE | 2021-12-22 14:42 | NURSING ---
Pt having Clear Liquid stools with mucous no c/o of Nausea or S&S of constipation. Dr. Pisano updated new order for KUB. Will continue to monitor call light within reach.
--- NOTE | 2021-12-22 15:15 | RAD_ITS ---
HISTORY: Diarrhea. TECHNIQUE: XR Abdomen 1 View. # of images incl. paperwork: 4. COMPARISON: 10/18/2020. FINDINGS: LUNG BASES: Clear. FREE AIR: Limited evaluation on supine views. BOWEL GAS PATTERN: Mild gaseous distention of small bowel. Moderate stool in the colon. CALCIFICATIONS: Vascular calcifications observed. SOFT TISSUES: Prostate radiotherapy seeds again seen. BONES: Left hip arthroplasty in place with overlying skin victoria. Thoracolumbar spinal fusion hardware identified. RAD/Abdomen Single View IMPRESSION: Moderate stool in the colon and mild gaseous of small bowel, likely constipation and ileus. at 1528 Reported and signed by: Hanna Haywood MD Electronically Signed: Hanna Haywood MD at 15:27 EST ,
[2021-12-22 16:00] VITALS: BP 130/82; PULSE 106; RESP 24; TEMP 36.6; O2SAT 92
[2021-12-22] MEDS: Magnesium Citrate 300 ML PO (16:12)
[2021-12-22 18:29] VITALS: BP 122/53; PULSE 108
--- NOTE | 2021-12-22 18:38 | NURSING ---
PICC flushing but no blood return noted new order to Discontinue PICC.
[2021-12-22] MEDS: ENZALUTAMIDE 40 MG CAPSULE 160 MG PO (21:53)
[2021-12-22] MEDS: Atorvastatin Calcium 80 MG Tablet PO (21:53)
[2021-12-22 22:00] VITALS: O2SAT 92
[2021-12-23 05:55] LABS: International Normalized Ratio 2.4; Prothrombin Time (Protime)PT. 25.3 SECONDS (11.7-14.9)
[2021-12-23] MEDS: Doxazosin 4 MG Tablet 8 MG PO (07:59)
[2021-12-23 08:00] VITALS: BP 147/76; PULSE 110
[2021-12-23] MEDS: Cholecalciferol (VIT D3) 25 MCG TABLET (1,000 UNITS) PO (08:00)
[2021-12-23] MEDS: Acetaminophen 500 MG Tablet 1000 MG PO ×3 (08:00→19:55)
[2021-12-23] MEDS: Losartan Potassium 100 MG Tablet PO (08:00)
[2021-12-23] MEDS: Metoprolol Tartrate 50 MG Tablet PO ×2 (08:00→18:20)
[2021-12-23] MEDS: guaiFENesin 600 MG Tablet PO ×2 (08:00→18:20)
[2021-12-23] MEDS: Senna/Docusate Sodium 1 Tablet 2 TABLET PO (08:01)
[2021-12-23] MEDS: Menthol/Lanolin/Calamine/Znox 113 GM Tube 1 APPLIC TOPICAL ×3 (08:02→19:53)
[2021-12-23] MEDS: Potassium Chloride Oral Tablet 20 MEQ PO (08:04)
[2021-12-23] MEDS: Loratadine 10 MG Tablet PO (08:05)
[2021-12-23 08:09] VITALS: BP 147/76; PULSE 110
[2021-12-23 09:17] VITALS: O2SAT 94
--- NOTE | 2021-12-23 10:15 | NURSING ---
Removed correia per order, pt tolerated well. pt expressed he will need assist with urinal. Educated pt to use call light and staff will assist with placement of urinal. will start voiding trials
[2021-12-23] MEDS: oxyCODONE 5 MG Tablet PO (10:28)
[2021-12-23] MEDS: Nystatin Powder 15gm Bottle 1 APPLIC TOPICAL ×2 (10:29→18:21)
--- NOTE | 2021-12-23 11:30 | NURSING ---
pt moved to room TCU d/t gerri transfer, needing more space.
[2021-12-23 13:33] VITALS: PULSE 94; RESP 18; O2SAT 93
[2021-12-23 14:39] VITALS: BP 114/54; PULSE 93; RESP 20; TEMP 36.3; O2SAT 92
[2021-12-23 18:20] VITALS: PULSE 93
[2021-12-23] MEDS: Atorvastatin Calcium 80 MG Tablet PO (19:52)
[2021-12-23] MEDS: ENZALUTAMIDE 40 MG CAPSULE 160 MG PO (19:53)
[2021-12-24] MEDS: guaiFENesin 600 MG Tablet PO ×2 (05:26→17:42)
[2021-12-24] MEDS: Losartan Potassium 100 MG Tablet PO (05:26)
[2021-12-24] MEDS: Cholecalciferol (VIT D3) 25 MCG TABLET (1,000 UNITS) PO (05:26)
[2021-12-24] MEDS: Doxazosin 4 MG Tablet 8 MG PO (05:26)
[2021-12-24 05:27] VITALS: BP 137/67; PULSE 83
[2021-12-24] MEDS: Loratadine 10 MG Tablet PO (05:27)
[2021-12-24] MEDS: Metoprolol Tartrate 50 MG Tablet PO ×2 (05:27→17:42)
[2021-12-24] MEDS: Menthol/Lanolin/Calamine/Znox 113 GM Tube 1 APPLIC TOPICAL ×3 (05:34→20:34)
[2021-12-24] MEDS: Nystatin Powder 15gm Bottle 1 APPLIC TOPICAL ×2 (05:34→17:44)
[2021-12-24] MEDS: Acetaminophen 500 MG Tablet 1000 MG PO ×3 (05:35→20:33)
[2021-12-24 05:56] LABS: International Normalized Ratio 2.7; Prothrombin Time (Protime)PT. 28.1 SECONDS (11.7-14.9)
[2021-12-24] MEDS: Potassium Chloride Oral Tablet 20 MEQ PO (08:05)
[2021-12-24 09:00] VITALS: O2SAT 92
--- NOTE | 2021-12-24 12:42 | CASEMGMT ---
Social Work Completed BIMS and PHQ-9 for MDS assessment. Pt scored 15/15 on BIMS indicating cognitively intact and 3/27 for PHQ-9 indicating no depression. Explored pt's mood and cognition further. Pt denied any changes or issues with either. Noted pt does not have any antidepressants ordered. Pt confirmed and denied needing medication. Offered for ongoing support or can add medication, if needs change. Discussed alternative DC plan and insurance coverage in TCU. Pt realistic that he cannot return home until returns to [facility] and is agreeable to ECF. Pt explained finances, and would have to spend down before Medicaid eligible. Pt does have intent to return home, but would pay for the first 30 days out of pocket. Provided SNF list with in network facilities and quality resources, along with Medicaid application. Also inquired about aide in the home currently. Pt states he does not pay for her services, she volunteers, he just gives her birthday or Tanya bonuses. He states she takes his laundry home with her to wash and goes grocery shopping for him. Inquired about payment for groceries. He provides her his credit card to make those purchases. Cautioned about ensuring receipt matches grocery list and monitoring purchases. Pt confirmed and states he follows that closely. He explains she helps 4-6x/wk for about an hour each day. SW to continue to follow and assist with support and discharge planning. Ritika Petty, CHIDI LIZAMAW
[2021-12-24 13:28] VITALS: BP 123/65; PULSE 106; RESP 18; TEMP 35.8; O2SAT 95
[2021-12-24 17:42] VITALS: PULSE 106
[2021-12-24] MEDS: oxyCODONE 5 MG Tablet PO (18:46)
[2021-12-24] MEDS: ENZALUTAMIDE 40 MG CAPSULE 160 MG PO (20:33)
[2021-12-24] MEDS: Atorvastatin Calcium 80 MG Tablet PO (20:34)
[2021-12-25 05:46] LABS: Absolute Lymphocyte Count 0.89 X10^3/uL (0.83-4.51); Absolute Neutrophil Count 2.3 X10^3/uL (2.0-7.7); Basophil# 0.01 X10^3/uL; Basophil% 0.3 % (0-1); Eosinophil# 0.32 X10^3/uL; Eosinophils% 8.1 % (0-5); Hematocrit 31.9 % (40-54); Hemoglobin 10.6 g/dL (13.0-16.5); Lymphocyte # 0.89 X10^3/ul (0.83-4.51); Lymphocyte % 22.6 % (19-41); Mean Corp Hgb Conc 33.2 g/dL (32-36); Mean Corpuscular Volume 90.4 fL (80-94); Mean Platelet Vol. 8.7 fl (6.2-12.0); Monocyte# 0.38 X10^3/uL; Monocyte% 9.7 % (0-10); NRBC Flagged by Analyzer 0 % (0-5); Neutrophil # 2.28 X10^3/uL (2.7-7.7); Platelet Count 226 K/mm3 (150-450); RBC Distribution Width CV 14.5 % (11.6-14.6); RBC Distribution Width SD 46.6 fl (35.1-43.9); Red Blood Count 3.53 M/mm3 (4.6-6.2); White Blood Count 3.9 K/mm3 (4.4-11.0)
[2021-12-25 05:54] LABS: International Normalized Ratio 3.1; Prothrombin Time (Protime)PT. 31.3 SECONDS (11.7-14.9)
[2021-12-25] MEDS: guaiFENesin 600 MG Tablet PO ×2 (05:59→17:17)
[2021-12-25] MEDS: Doxazosin 4 MG Tablet 8 MG PO (05:59)
[2021-12-25] MEDS: Losartan Potassium 100 MG Tablet PO (05:59)
[2021-12-25] MEDS: Acetaminophen 500 MG Tablet 1000 MG PO ×3 (05:59→21:46)
[2021-12-25] MEDS: Loratadine 10 MG Tablet PO (05:59)
[2021-12-25 06:00] VITALS: BP 132/68; PULSE 98
[2021-12-25] MEDS: Cholecalciferol (VIT D3) 25 MCG TABLET (1,000 UNITS) PO (06:00)
[2021-12-25] MEDS: Metoprolol Tartrate 50 MG Tablet PO ×2 (06:00→19:00)
[2021-12-25] MEDS: Menthol/Lanolin/Calamine/Znox 113 GM Tube 1 APPLIC TOPICAL ×3 (06:02→21:42)
[2021-12-25] MEDS: Nystatin Powder 15gm Bottle 1 APPLIC TOPICAL ×2 (06:03→17:19)
[2021-12-25 06:11] LABS: Anion Gap 4 (5-15); BUN 12 mg/dL (7-18); BUN/Creat Ratio 19.8 RATIO (10-20); Calcium,Total 8.2 mg/dL (8.5-10.1); Chloride 105 mmol/L (98-107); EST Glomerular Filtration Rate 139 mL/min (>60); Est Glom Filt Rate - Afr Amer 168 mL/min (>60); Estimated Creatinine Clearance 71.13 ml/min; Glucose 98 mg/dL (74-106); Sodium Level 136 mmol/L (136-145)
[2021-12-25] MEDS: Potassium Chloride Oral Tablet 20 MEQ PO (07:39)
[2021-12-25] MEDS: Tuberculin,Purif.prot.deriv. 50 TU/ML Vial 0.1 ML ID (10:10)
--- NOTE | 2021-12-25 10:58 | CASEMGMT ---
Addendum entered by Ritika Petty 12/25/21 15:30: [facility] can accept. Addendum entered by Ritika Petty 12/25/21 14:17: [facility] does not have bed availability. Original Note: Social Work IDT met with patient and caregiver for care plan meeting. Discussed patient's progress in PT/OT and nursing. Explained [facility] insurance with NRD 12/26 and continued stay is not guaranteed. Explained and provided insurance care plan with [facility] 01/02. Pt provided SNF choices and [facility]. Referrals made to [facility], [facility], and SW. SW to continue to follow. CHIDI LópezW
[2021-12-25 11:42] VITALS: O2SAT 98
[2021-12-25 15:00] VITALS: BP 104/46; PULSE 90; RESP 18; TEMP 36.1; O2SAT 94
--- NOTE | 2021-12-25 16:27 | NURSING ---
Pt was bladder scanned around 2pm for 594 after pt stated he has been unable to urinate. Pt refused interventions and wanted a little more time to try to urinate. Upon reassessment pt bladderscanned for 729, and Dr. Pisano updated N.O. to straight cath when BS >500
[2021-12-25] MEDS: Senna/Docusate Sodium 1 Tablet 2 TABLET PO (17:17)
[2021-12-25 18:27] LABS: ALB/GLOB Ratio 0.6 RATIO (0.9-2.4); AST(SGOT) 32 U/L (15-37); Alanine Aminotransfer ALT/SGPT 26 U/L (16-61); Alkaline Phosphatase 128 U/L (45-117); Anion Gap 4 (5-15); BUN 16 mg/dL (7-18); BUN/Creat Ratio 25.8 RATIO (10-20); Calcium,Total 8.2 mg/dL (8.5-10.1); Chloride 104 mmol/L (98-107); Creatinine, Serum 0.62 mg/dL (0.70-1.30); EST Glomerular Filtration Rate 134 mL/min (>60); Est Glom Filt Rate - Afr Amer 163 mL/min (>60); Estimated Creatinine Clearance 71.13 ml/min; Globulin 3.6 g/dL (2.2-4.2); Glucose 104 mg/dL (74-106); Potassium 4.4 mmol/L (3.5-5.1); Protein, Total 5.6 g/dL (6.4-8.2); Sodium Level 136 mmol/L (136-145)
--- NOTE | 2021-12-25 18:59 | NURSING ---
Pt's visitors mentioned they felt his color was off that he looked a little jaundice. Dr. Pisano updated and new labs ordered.
[2021-12-25 19:00] VITALS: BP 116/63; PULSE 102
[2021-12-25] MEDS: ENZALUTAMIDE 40 MG CAPSULE 160 MG PO (21:43)
[2021-12-25] MEDS: Atorvastatin Calcium 80 MG Tablet PO (21:46)
[2021-12-25] MEDS: oxyCODONE 5 MG Tablet PO (23:55)
[2021-12-26] MEDS: Acetaminophen 500 MG Tablet 1000 MG PO ×3 (04:18→21:03)
[2021-12-26] MEDS: Menthol/Lanolin/Calamine/Znox 113 GM Tube 1 APPLIC TOPICAL ×3 (04:18→21:01)
[2021-12-26] MEDS: Loratadine 10 MG Tablet PO (04:19)
[2021-12-26] MEDS: Doxazosin 4 MG Tablet 8 MG PO (04:19)
[2021-12-26] MEDS: Nystatin Powder 15gm Bottle 1 APPLIC TOPICAL ×2 (04:19→18:08)
[2021-12-26] MEDS: guaiFENesin 600 MG Tablet PO ×2 (04:19→18:08)
[2021-12-26] MEDS: Cholecalciferol (VIT D3) 25 MCG TABLET (1,000 UNITS) PO (04:19)
[2021-12-26 04:20] VITALS: BP 114/71; PULSE 96
[2021-12-26] MEDS: Metoprolol Tartrate 50 MG Tablet PO ×2 (04:20→18:07)
[2021-12-26] MEDS: Losartan Potassium 100 MG Tablet PO (04:20)
[2021-12-26 06:07] LABS: International Normalized Ratio 3.1
--- NOTE | 2021-12-26 08:45 | CASEMGMT ---
Social Work [facility] is not in network with insurance and pt has no out of network benefits. Updated pt. Pt agreeable to DC to [facility]. Ritika Petty, SOLAR FABRICATION TECHNICIAN RIDING COACH
[2021-12-26] MEDS: Potassium Chloride Oral Tablet 20 MEQ PO (09:23)
[2021-12-26 09:31] VITALS: BP 79/42; RESP 18; O2SAT 94
[2021-12-26 12:50] VITALS: PULSE 102; RESP 18; O2SAT 93
[2021-12-26 13:53] VITALS: BP 117/69; PULSE 110; RESP 10; TEMP 36.1; O2SAT 95
[2021-12-26 18:07] VITALS: PULSE 121
[2021-12-26] MEDS: Senna/Docusate Sodium 1 Tablet 2 TABLET PO (18:08)
[2021-12-26] MEDS: ENZALUTAMIDE 40 MG CAPSULE 160 MG PO (21:02)
[2021-12-26] MEDS: Atorvastatin Calcium 80 MG Tablet PO (21:02)
[2021-12-27 05:41] VITALS: PULSE 98
[2021-12-27] MEDS: guaiFENesin 600 MG Tablet PO ×2 (05:41→17:42)
[2021-12-27] MEDS: Cholecalciferol (VIT D3) 25 MCG TABLET (1,000 UNITS) PO (05:41)
[2021-12-27] MEDS: Acetaminophen 500 MG Tablet 1000 MG PO ×3 (05:41→22:24)
[2021-12-27] MEDS: Menthol/Lanolin/Calamine/Znox 113 GM Tube 1 APPLIC TOPICAL ×3 (05:41→22:22)
[2021-12-27] MEDS: Doxazosin 4 MG Tablet PO (05:41)
[2021-12-27] MEDS: Metoprolol Tartrate 50 MG Tablet PO ×2 (05:41→17:42)
[2021-12-27] MEDS: Loratadine 10 MG Tablet PO (05:41)
[2021-12-27] MEDS: Nystatin Powder 15gm Bottle 1 APPLIC TOPICAL ×2 (05:42→17:42)
[2021-12-27 07:25] VITALS: O2SAT 95
[2021-12-27] MEDS: Potassium Chloride Oral Tablet 20 MEQ PO (07:33)
--- NOTE | 2021-12-27 12:46 | CASEMGMT ---
Social Work Updated pt that insurance approved [facility] 12/30 with [facility] 01/02 and pt would transfer to [facility]. Pt in agreement. Pt disclosed to this worker about PTSD/panic attack episode with therapy this morning. Pt expressed feelings of fear and trust. Validated feelings, discussed interventions such as positive self talk to reassure self he is in control and to lessen anxiety so pt does not go into vvina-or-vexjfc mode. Discussed keeping thoughts being in control and being safe; trusting therapists who have years of experience and proper technique. Offered for pt to f/u with psychologist at [facility]. Pt agreed and also stated he might do teletherapy via cell phone that is covered by his insurance. SW agreed. Pt appreciative of this worker discussion and stated he felt better. SW to continue to follow for ongoing support and DC planning. Ritika Petty, CHIDI LIZAMAW
--- NOTE | 2021-12-27 14:43 | NURSING ---
Resident and brother, Yossi, notified of a staff member and resident testing positive for COVID.
[2021-12-27 16:00] VITALS: BP 121/67; PULSE 78; RESP 12; TEMP 36.6; O2SAT 93
[2021-12-27 17:42] VITALS: PULSE 78
[2021-12-27] MEDS: ENZALUTAMIDE 40 MG CAPSULE 160 MG PO (22:20)
[2021-12-27] MEDS: Atorvastatin Calcium 80 MG Tablet PO (22:21)
[2021-12-27 22:55] VITALS: RESP 18
[2021-12-28] MEDS: Menthol/Lanolin/Calamine/Znox 113 GM Tube 1 APPLIC TOPICAL ×3 (06:03→20:13)
[2021-12-28] MEDS: Loratadine 10 MG Tablet PO (06:03)
[2021-12-28] MEDS: Cholecalciferol (VIT D3) 25 MCG TABLET (1,000 UNITS) PO (06:03)
[2021-12-28] MEDS: Doxazosin 4 MG Tablet PO (06:03)
[2021-12-28] MEDS: guaiFENesin 600 MG Tablet PO ×2 (06:03→17:09)
[2021-12-28 06:04] VITALS: BP 122/79; PULSE 104
[2021-12-28] MEDS: Metoprolol Tartrate 50 MG Tablet PO ×2 (06:04→17:09)
[2021-12-28] MEDS: Acetaminophen 500 MG Tablet 1000 MG PO ×3 (06:05→20:22)
[2021-12-28] MEDS: Nystatin Powder 15gm Bottle 1 APPLIC TOPICAL ×2 (06:05→17:10)
[2021-12-28] MEDS: Potassium Chloride Oral Tablet 20 MEQ PO (08:42)
--- NOTE | 2021-12-28 11:14 | NURSING ---
therapy and nursing staff attempting to get pt up to chair but only able to do sit stand x3. pt very fearful that staff wont be able to hold him up and pt with mod anxiety during entire treatment with pt then refusing to get up all together.
[2021-12-28 14:25] VITALS: BP 123/66; PULSE 82; RESP 18; TEMP 36.2; O2SAT 96
--- NOTE | 2021-12-28 15:42 | NURSING ---
1430-drsg changed to lt elbow abrasion. and lt hip. pt helping by holding lt elbow up and assisting slightly when turned for hip drsg. small amt yellow clear serous fluid
[2021-12-28 17:09] VITALS: BP 123/66; PULSE 82
[2021-12-28] MEDS: ENZALUTAMIDE 40 MG CAPSULE 160 MG PO (20:22)
[2021-12-28] MEDS: Atorvastatin Calcium 80 MG Tablet PO (20:23)
--- NOTE | 2021-12-28 21:28 | NURSING ---
During HS care keke patient asked this nurse to ask MD for anti anxiety medication d/t panic attack he had during therapy. Note left for MD.
[2021-12-29] MEDS: Menthol/Lanolin/Calamine/Znox 113 GM Tube 1 APPLIC TOPICAL ×3 (05:46→20:27)
[2021-12-29] MEDS: Acetaminophen 500 MG Tablet 1000 MG PO ×3 (05:46→20:27)
[2021-12-29 05:47] VITALS: BP 127/74; PULSE 86
[2021-12-29] MEDS: guaiFENesin 600 MG Tablet PO ×2 (05:47→16:56)
[2021-12-29] MEDS: Loratadine 10 MG Tablet PO (05:47)
[2021-12-29] MEDS: Metoprolol Tartrate 50 MG Tablet PO ×2 (05:47→16:55)
[2021-12-29] MEDS: Cholecalciferol (VIT D3) 25 MCG TABLET (1,000 UNITS) PO (05:47)
[2021-12-29] MEDS: Nystatin Powder 15gm Bottle 1 APPLIC TOPICAL ×2 (05:47→15:12)
[2021-12-29] MEDS: Doxazosin 4 MG Tablet PO (05:47)
[2021-12-29] MEDS: Potassium Chloride Oral Tablet 20 MEQ PO (08:01)
[2021-12-29 15:03] VITALS: BP 120/54; PULSE 92; RESP 17; TEMP 36.7; O2SAT 97
--- NOTE | 2021-12-29 16:24 | NURSING ---
Notified Dr. Pisano of pt c/o having panic attack with therapy and requesting anxiety medication. Received order for Zanax 0.25mg q8hr PRN. Order repeated back, will add order.
[2021-12-29 16:55] VITALS: BP 120/54; PULSE 92
[2021-12-29] MEDS: ALPRAZolam 0.25 MG Tablet PO (20:26)
[2021-12-29] MEDS: ENZALUTAMIDE 40 MG CAPSULE 160 MG PO (20:26)
[2021-12-29] MEDS: Atorvastatin Calcium 80 MG Tablet PO (20:27)
--- NOTE | 2021-12-29 21:45 | NURSING ---
Patient requested to be given Xanax before HS tonight. Patient currently resting, eyes closed. Awakens easily and was able to communicate with this nurse after administration.
[2021-12-30 04:16] VITALS: BP 114/70; PULSE 90
[2021-12-30] MEDS: Acetaminophen 500 MG Tablet 1000 MG PO ×3 (04:16→21:58)
[2021-12-30] MEDS: Metoprolol Tartrate 50 MG Tablet PO ×2 (04:16→18:26)
[2021-12-30] MEDS: Cholecalciferol (VIT D3) 25 MCG TABLET (1,000 UNITS) PO (04:16)
[2021-12-30] MEDS: Polyethylene Glycol 3350 17 GM PACKET PO (04:16)
[2021-12-30] MEDS: Doxazosin 4 MG Tablet PO (04:17)
[2021-12-30] MEDS: Menthol/Lanolin/Calamine/Znox 113 GM Tube 1 APPLIC TOPICAL ×3 (04:17→21:53)
[2021-12-30] MEDS: Loratadine 10 MG Tablet PO (04:17)
[2021-12-30] MEDS: guaiFENesin 600 MG Tablet PO ×2 (04:17→18:26)
[2021-12-30 04:22] VITALS: BP 114/70; PULSE 90; RESP 17; TEMP 35.7; O2SAT 98
[2021-12-30] MEDS: Nystatin Powder 15gm Bottle 1 APPLIC TOPICAL ×2 (04:26→21:52)
[2021-12-30 06:04] LABS: International Normalized Ratio 2.2; Prothrombin Time (Protime)PT. 23.3 SECONDS (11.7-14.9)
[2021-12-30] MEDS: Potassium Chloride Oral Tablet 20 MEQ PO (08:00)
[2021-12-30] MEDS: oxyCODONE 5 MG Tablet PO ×2 (08:05→12:47)
[2021-12-30] MEDS: ALPRAZolam 0.25 MG Tablet PO ×2 (08:06→16:19)
[2021-12-30 14:02] VITALS: BP 113/61; PULSE 96; RESP 17; TEMP 36.2; O2SAT 96
--- NOTE | 2021-12-30 14:23 | MDS.RN ---
Information for the mds was obtained from review of the clinical record, interview of resident, staff, and direct observation of residen'ts care.
--- NOTE | 2021-12-30 16:36 | CASEMGMT ---
Social Work Insurance issued LCD 01/01, DC 01/02. Confirmed with [facility] pt is able to tx. PASRR completed. Cot transport scheduled at 10 am through [facility]. Met with patient to update on above. Pt agreeable. Inquired about anxiety and morning therapy session. Pt and this worker conversed at length. Commended pt for improving on positive self talk, celebrating small successes - like walking 10 ft today - and keeping pt encouraged. Suggested taking PRN anxiety meds right before therapy sessions since that is the trigger. Pt agreed. Pt appreciative of this worker's conversation. SW ordered psychology follow up at [facility]. Plan: DC to [facility], nonskilled, part B therapies, private pay, 01/02 CHIDI López
--- NOTE | 2021-12-30 16:43 | CHAPLAIN ---
Type of Pastoral Visit ___ Initial Visit _x__ Follow-up Visit ___ On-call Visit ___ General Patient Visit ___ Spiritual Assessment ___ Family Conference ___ Bereavement ___ Rapid Response ___ Code Blue ___ Other (describe below) Pastoral Care Referral From _x__ Patient ___ Family _x__ Nurse ___ Physician ___ Eeo Officer ___ Assistant Production Manager ___ Other (describe below) Sacrament/Intervention _x__ Active listening ___ Anointing ___ Yarsanism ___ Bereavement ___ Communion _x__ Tiff exploration ___ ___ Life review _x__ Prayer ___ Reconciliation ___ Sacrament of Sick _x__ Supportive presence ___ Wedding ___ Other (describe below) Pastoral Comments patient has had a few more anxious days and the offer of presence and listening ear were well received; pt acknowledges some of the struggle and how he and others are addressing that; pt relies on his tiff in God for support as well as people who can understand and psychologist counseling him; pt expresses thanks for the time given to listen and be present; prayer also very welcome
[2021-12-30 18:26] VITALS: BP 113/61; PULSE 96
--- NOTE | 2021-12-30 18:46 | PCM.DC.SUM ---
Providers Date of Admission: 12/17/21 Primary Care Physician: Dr. James Pisano MD Reason For Visit: PNA/LT HIP FX/LT HUMEROUS FX Diagnosis Discharge Diagnosis (1) Debility: Status: Acute Code(s): R53.81 - Other malaise (2) Sepsis: Status: Acute Code(s): A41.9 - Sepsis, unspecified organism (3) Pneumonia: Status: Acute Code(s): J18.9 - Pneumonia, unspecified organism (4) Closed left hip fracture: Status: Acute Code(s): S72.002A - Fracture of unspecified part of neck of left femur, initial encounter for closed fracture (5) Closed left humeral fracture: Status: Acute Code(s): S42.302A - Unspecified fracture of shaft of humerus, left arm, initial encounter for closed fracture (6) COVID-19: Status: Acute Code(s): U07.1 - COVID-19 (7) Hyperlipidemia: Status: Acute Code(s): E78.5 - Hyperlipidemia, unspecified (8) Hypokalemia: Status: Acute Code(s): E87.6 - Hypokalemia (9) Coronary artery disease: Status: Acute Code(s): I25.10 - Atherosclerotic heart disease of [place] coronary artery without angina pectoris (10) Benign prostate hyperplasia: Status: Acute Code(s): N40.0 - Benign prostatic hyperplasia without lower urinary tract symptoms (11) Prostate cancer: Status: Acute Code(s): C61 - Malignant neoplasm of prostate (12) Hypertension: Status: Chronic Code(s): I10 - Essential (primary) hypertension (13) Vitamin D deficiency: Status: Acute Code(s): E55.9 - Vitamin D deficiency, unspecified (14) Atrial fibrillation: Status: Acute Code(s): I48.91 - Unspecified atrial fibrillation Medications at Discharge Home Medications atorvastatin 80 mg PO QHS 04/02/16 potassium chloride 20 mEq tablet,extended release 20 meq PO DAILY 12/03/18 cetirizine 10 mg PO DAILY 12/27/18 metoprolol tartrate 50 mg tablet 50 mg PO BID 03/15/19 leuprolide (3 month) 22.5 mg (3 month) intramuscular syringe kit 11.25 mg IM [id number] 06/15/20 cholecalciferol (vitamin D3) 1,250 mcg (50,000 unit) capsule 1,000 unit PO DAILY cap 10/29/20 enzalutamide 160 mg PO DAILY 01/05/21 nystatin [Nyamyc] 1 applic TOPICAL BID 12/14/21 guaifenesin [Mucus Relief ER] 600 mg PO BID 12/17/21 acetaminophen 1,000 mg PO Q8 #0 tab 12/30/21 alprazolam 0.25 mg PO Q8H PRN 3 Days #9 tab 12/30/21 bisacodyl 10 mg PO DAILY PRN PRN #0 tab 12/30/21 doxazosin 4 mg PO DAILY #0 tab 12/30/21 menthol-zinc oxide [Calmoseptine] 1 applic TOPICAL TID #0 g 12/30/21 oxycodone 5 mg PO Q4H PRN PRN 3 Days #18 tab 12/30/21 polyethylene glycol 3350 17 g PO DAILY #0 ea 12/30/21 sennosides-docusate sodium [Stool Softener-Stimulant Laxat] 2 tab PO BID #0 tab 12/30/21 warfarin [Jantoven] 6.5 mg PO DINNER #0 tab 12/30/21 Hospital Course Operations - (Left hip hemiarthroplasty.) Procedures None Summary of Care Provided Minutes Spent on Discharge: 35 Hospital Course: 76 year old male with below past medical history hospitalized for left hip fracture, underwent left hip hemiarthroplasty 12/15/[address] Oakes, left humerus fracture treated with sling, complicated by sepsis, pneumonia, admitted to TCU with debility, here for rehabilitation, strengthening, prior to discharge home alone. Discharge to [facility], Part B therapies, private pay 01/02/2022. Physical Exam Const alert and oriented x3 General Appearance: cooperative HEENT normocephalic Eyes PERRL and EOMs intact bilaterally Neck supple, no JVD and no carotid bruits Resp normal respiratory effort, normal air movement and clear to auscultation bilaterally Cardio regular rate and regular rhythm GI normal to inspection, nondistended, normoactive bowel sounds, non-tender and non-distended Extremity normal capillary refill General Extremity: Negative for edema Skin no rashes or lesions noted General Skin Exam: no breakdown Psych affect normal Appearance: appropriate Weight / BMI Weight Weight: 133.583 kg Body Mass Index (BMI) 39.9 ABG / Lab / Microbiology Data Result Diagrams: 12/25/21 05:31 12/25/21 17:47 Laboratory: Laboratory Results - last 24 hr 12/30/21 05:14: PT 23.3 H, INR 2.2 D/C Instructions Discharge Diet: No restrictions Discharge Activity: Return to Normal Activity, May Shower and Use Walker Weight Bearing Status: Weight bearing as tolerated Call your doctor if you observe: Fever of 101 or Higher, Inability to urinate, Inability to have a bowel movement, Shortness of breath, Dizziness, Fainting spells, Swelling in the ankles, Chest pain and Uncontrolled pain Additional Instructions: Discharge to [facility], Part B therapies, private pay 01/02/2022. Please Follow Up With: Koby Oakes DO When: As scheduled. Meaningful Use Info Meaningful Use Diagnoses (Choose all that apply): None applicable Discharge Plan Admission Admit Date/Time: 12/17/21 15:50 Primary Reason for Your Visit: Debility. Attending Provider: James Pisano Chi Primary Care Provider: James Pisano Chi Instructions Additional Instructions / Restrictions: Discharge to [facility], Part B therapies, private pay 01/02/2022. Discharge Orders/Prescriptions Prescriptions: New polyethylene glycol 3350 17 gram Powder In Packet 17 g PO DAILY Qty: 0 RF: 0 sennosides-docusate sodium [Stool Softener-Stimulant Laxat] 8.6-50 mg Tablet 2 tab PO BID Qty: 0 RF: 0 warfarin [Jantoven] 2.5 mg Tablet 6.5 mg PO DINNER Qty: 0 RF: 0 acetaminophen 500 mg Tablet 1,000 mg PO Q8 Qty: 0 RF: 0 alprazolam 0.25 mg Tablet 0.25 mg PO Q8H PRN (Reason: Anxiety) 3 Days Qty: 9 RF: 0 doxazosin 4 mg Tablet 4 mg PO DAILY Qty: 0 RF: 0 bisacodyl 5 mg Tablet,Delayed Release (Dr/Ec) 10 mg PO DAILY PRN PRN (Reason: Constipation) Qty: 0 RF: 0 oxycodone 5 mg Tablet 5 mg PO Q4H PRN PRN (Reason: Pain Score 4-10) 3 Days Qty: 18 RF: 0 menthol-zinc oxide [Calmoseptine] 0.44-20.6 % Ointment 1 applic topical TID Qty: 0 RF: 0 Continued potassium chloride 20 mEq tablet extended release 20 meq PO DAILY RF: 0 cholecalciferol (vitamin D3) 1,250 mcg (50,000 unit) capsule 1,000 unit PO DAILY RF: 0 metoprolol tartrate 50 mg tablet 50 mg PO BID RF: 0 Lupron Depot (3 month) 22.5 mg syringe kit 11.25 mg IM [id number] RF: 0 atorvastatin 80 MG tablet 80 mg PO QHS RF: 0 cetirizine 10 MG capsule 10 mg PO DAILY RF: 0 enzalutamide 40 MG capsule 160 mg PO DAILY RF: 0 nystatin [Nyamyc] 100,000 unit/gram powder 1 applic topical BID RF: 0 guaifenesin [Mucus Relief ER] 600 mg tablet extended release 12hr 600 mg PO BID RF: 0 Discontinued acetaminophen 325 mg tablet 650 mg PO Q4H PRN PRN (Reason: Pain) RF: 0 cromolyn [Nasalcrom] 5.2 mg/spray (4 %) spray,non-aerosol 2 spray INTRANASAL DAILY RF: 0 terazosin 10 mg capsule 10 mg PO QHS RF: 0 losartan 100 mg tablet 100 mg PO DAILY RF: 0 warfarin 7.5 mg Tablet 7.5 mg PO DAILY RF: 0 dexamethasone 6 mg tablet 6 mg PO DAILY RF: 0 doxazosin 8 mg tablet 8 mg PO DAILY RF: 0 oxycodone 5 mg Tablet 5 mg PO Q8H PRN PRN (Reason: Pain Score 6-10) 5 Days Qty: 15 RF: 0 cefdinir 300 mg capsule 300 mg PO BID RF: 0 Referrals / Follow Up: James Pisano Chi, MD [Primary Care Provider] - Disposition Disposition (needs filled in before D/C Order can be placed): NonSkilled NH/Intermed Care
--- NOTE | 2021-12-30 18:53 | PCM.TXEXTCAR ---
Diet 12/27/21 15:39 Diet: Regular - General Food consistency:: Regular Liquid Consistency:: Regular/Thin Is pt able to select menu?: Yes Routine Orders/Code Status Routine Lab Work: CBC, BMP and INR Code Status: Full Code Wound(s) Right heel: Wound Type: Pressure Injury Dressing Change: mepiliex 12/24 Left thigh: Wound Type: Abrasion Left hand: Wound Type: Excoriation from IV infiltrate lt hip incision: Wound Type: Surgical Incision Dressing Change: Dry Sterile Dressing left elbow: Wound Type: Abrasion Dressing Change: adaptic, DSD jonathon buttocks: Wound Type: shearing Dressing Change: CALMOSEPTINE Therapies Weight Bearing: Non weight bearing Extremity Affected:: Left Upper Physical Therapy: Eval and Treat Occupational Therapy: Eval and Treat Speech Therapy: Eval and Treat Problem/Diagnosis (1) Debility: Status: Acute (2) Sepsis: Status: Acute (3) Pneumonia: Status: Acute (4) Closed left hip fracture: Status: Acute (5) Closed left humeral fracture: Status: Acute (6) COVID-19: Status: Acute (7) Hyperlipidemia: Status: Acute (8) Hypokalemia: Status: Acute (9) Coronary artery disease: Status: Acute (10) Benign prostate hyperplasia: Status: Acute (11) Prostate cancer: Status: Acute (12) Hypertension: Status: Chronic (13) Vitamin D deficiency: Status: Acute (14) Atrial fibrillation: Status: Acute Allergies/Procedures Done in Hospital Allergies amiodarone Adverse Reaction (Intermediate, Verified 11/25/21 12:16) It did not work, also bad dreams and neuropathy Procedures: - (Left hip hemiarthroplasty.) Type of Care/Length of Stay Estimated LOS: More Than 30 Days Type of Care Needed: Intermediate Rehab Potential: Good Prognosis: Fair Additional Orders/Day of Discharge Additional Orders: Part B therapies Day of Discharge: 01/02/22 Dietary and Speech Recommendations Dietitian Recommendations/Changes: Will continue current Cardiac diet as ordered Follow Up Care Please Follow Up With: Koby Oakes DO Discharge Plan Admission Admit Date/Time: 12/17/21 15:50 Primary Reason for Your Visit: Debility. Attending Provider: James Pisano Chi Primary Care Provider: James Pisano Chi Instructions Additional Instructions / Restrictions: Discharge to [facility], Part B therapies, private pay 01/02/2022. Discharge Orders/Prescriptions Prescriptions: New polyethylene glycol 3350 17 gram Powder In Packet 17 g PO DAILY Qty: 0 RF: 0 sennosides-docusate sodium [Stool Softener-Stimulant Laxat] 8.6-50 mg Tablet 2 tab PO BID Qty: 0 RF: 0 warfarin [Jantoven] 2.5 mg Tablet 6.5 mg PO DINNER Qty: 0 RF: 0 acetaminophen 500 mg Tablet 1,000 mg PO Q8 Qty: 0 RF: 0 alprazolam 0.25 mg Tablet 0.25 mg PO Q8H PRN (Reason: Anxiety) 3 Days Qty: 9 RF: 0 doxazosin 4 mg Tablet 4 mg PO DAILY Qty: 0 RF: 0 bisacodyl 5 mg Tablet,Delayed Release (Dr/Ec) 10 mg PO DAILY PRN PRN (Reason: Constipation) Qty: 0 RF: 0 oxycodone 5 mg Tablet 5 mg PO Q4H PRN PRN (Reason: Pain Score 4-10) 3 Days Qty: 18 RF: 0 menthol-zinc oxide [Calmoseptine] 0.44-20.6 % Ointment 1 applic topical TID Qty: 0 RF: 0 Continued potassium chloride 20 mEq tablet extended release 20 meq PO DAILY RF: 0 cholecalciferol (vitamin D3) 1,250 mcg (50,000 unit) capsule 1,000 unit PO DAILY RF: 0 metoprolol tartrate 50 mg tablet 50 mg PO BID RF: 0 Lupron Depot (3 month) 22.5 mg syringe kit 11.25 mg IM [id number] RF: 0 atorvastatin 80 MG tablet 80 mg PO QHS RF: 0 cetirizine 10 MG capsule 10 mg PO DAILY RF: 0 enzalutamide 40 MG capsule 160 mg PO DAILY RF: 0 nystatin [Nyamyc] 100,000 unit/gram powder 1 applic topical BID RF: 0 guaifenesin [Mucus Relief ER] 600 mg tablet extended release 12hr 600 mg PO BID RF: 0 Discontinued acetaminophen 325 mg tablet 650 mg PO Q4H PRN PRN (Reason: Pain) RF: 0 cromolyn [Nasalcrom] 5.2 mg/spray (4 %) spray,non-aerosol 2 spray INTRANASAL DAILY RF: 0 terazosin 10 mg capsule 10 mg PO QHS RF: 0 losartan 100 mg tablet 100 mg PO DAILY RF: 0 warfarin 7.5 mg Tablet 7.5 mg PO DAILY RF: 0 dexamethasone 6 mg tablet 6 mg PO DAILY RF: 0 doxazosin 8 mg tablet 8 mg PO DAILY RF: 0 oxycodone 5 mg Tablet 5 mg PO Q8H PRN PRN (Reason: Pain Score 6-10) 5 Days Qty: 15 RF: 0 cefdinir 300 mg capsule 300 mg PO BID RF: 0 Referrals / Follow Up: James Pisano Chi, MD [Primary Care Provider] - Disposition Disposition (needs filled in before D/C Order can be placed): NonSkilled NH/[facility]
[2021-12-30] MEDS: Atorvastatin Calcium 80 MG Tablet PO (21:53)
[2021-12-30] MEDS: ENZALUTAMIDE 40 MG CAPSULE 160 MG PO (21:54)
[2021-12-31] MEDS: ALPRAZolam 0.25 MG Tablet PO ×3 (00:25→16:40)
[2021-12-31] MEDS: oxyCODONE 5 MG Tablet PO ×5 (00:25→20:34)
[2021-12-31] MEDS: Polyethylene Glycol 3350 17 GM PACKET PO (05:41)
[2021-12-31] MEDS: Doxazosin 4 MG Tablet PO (05:41)
[2021-12-31] MEDS: Acetaminophen 500 MG Tablet 1000 MG PO ×3 (05:41→20:35)
[2021-12-31 05:42] VITALS: BP 109/61; PULSE 79
[2021-12-31] MEDS: guaiFENesin 600 MG Tablet PO ×2 (05:42→16:40)
[2021-12-31] MEDS: Cholecalciferol (VIT D3) 25 MCG TABLET (1,000 UNITS) PO (05:42)
[2021-12-31] MEDS: Loratadine 10 MG Tablet PO (05:42)
[2021-12-31] MEDS: Nystatin Powder 15gm Bottle 1 APPLIC TOPICAL ×2 (05:42→16:45)
[2021-12-31] MEDS: Metoprolol Tartrate 50 MG Tablet PO (05:42)
[2021-12-31] MEDS: Menthol/Lanolin/Calamine/Znox 113 GM Tube 1 APPLIC TOPICAL (05:43)
[2021-12-31] MEDS: Potassium Chloride Oral Tablet 20 MEQ PO (08:23)
[2021-12-31 14:01] VITALS: BP 95/59; PULSE 97; RESP 16; TEMP 35.8; O2SAT 93
[2021-12-31] MEDS: Senna/Docusate Sodium 1 Tablet 2 TABLET PO (16:40)
[2021-12-31] MEDS: Atorvastatin Calcium 80 MG Tablet PO (20:34)
[2021-12-31] MEDS: ENZALUTAMIDE 40 MG CAPSULE 160 MG PO (20:35)
[2022-01-01] MEDS: oxyCODONE 5 MG Tablet PO ×2 (01:04→06:49)
[2022-01-01 05:28] LABS: Absolute Lymphocyte Count 1.19 X10^3/uL (0.83-4.51); Absolute Neutrophil Count 2.9 X10^3/uL (2.0-7.7); Basophil# 0.02 X10^3/uL; Basophil% 0.4 % (0-1); Eosinophil# 0.17 X10^3/uL; Eosinophils% 3.6 % (0-5); Hematocrit 32.1 % (40-54); Hemoglobin 10.5 g/dL (13.0-16.5); Lymphocyte # 1.19 X10^3/ul (0.83-4.51); Lymphocyte % 25.4 % (19-41); Mean Corp Hgb Conc 32.7 g/dL (32-36); Mean Corpuscular Hgb 29.9 pg (27.0-32.0); Mean Corpuscular Volume 91.5 fL (80-94); Monocyte# 0.43 X10^3/uL; Monocyte% 9.2 % (0-10); NRBC Flagged by Analyzer 0 % (0-5); Neutrophil # 2.85 X10^3/uL (2.7-7.7); Platelet Count 235 K/mm3 (150-450); RBC Distribution Width CV 15.2 % (11.6-14.6); RBC Distribution Width SD 49.5 fl (35.1-43.9); Red Blood Count 3.51 M/mm3 (4.6-6.2); White Blood Count 4.7 K/mm3 (4.4-11.0)
[2022-01-01 05:49] LABS: Anion Gap 5 (5-15); BUN 16 mg/dL (7-18); BUN/Creat Ratio 31.6 RATIO (10-20); Calcium,Total 8.3 mg/dL (8.5-10.1); Chloride 107 mmol/L (98-107); Creatinine, Serum 0.51 mg/dL (0.70-1.30); EST Glomerular Filtration Rate 170 mL/min (>60); Est Glom Filt Rate - Afr Amer 206 mL/min (>60); Estimated Creatinine Clearance 71.13 ml/min; Glucose 102 mg/dL (74-106); Sodium Level 139 mmol/L (136-145)
[2022-01-01] MEDS: Polyethylene Glycol 3350 17 GM PACKET PO (06:48)
[2022-01-01 06:49] VITALS: PULSE 78
[2022-01-01] MEDS: Senna/Docusate Sodium 1 Tablet 2 TABLET PO ×2 (06:49→17:33)
[2022-01-01] MEDS: Metoprolol Tartrate 50 MG Tablet PO ×2 (06:49→17:33)
[2022-01-01] MEDS: guaiFENesin 600 MG Tablet PO ×2 (06:49→17:35)
[2022-01-01] MEDS: Loratadine 10 MG Tablet PO (06:49)
[2022-01-01] MEDS: Doxazosin 4 MG Tablet PO (06:49)
[2022-01-01] MEDS: Cholecalciferol (VIT D3) 25 MCG TABLET (1,000 UNITS) PO (06:49)
[2022-01-01] MEDS: Menthol/Lanolin/Calamine/Znox 113 GM Tube 1 APPLIC TOPICAL ×3 (06:50→21:46)
[2022-01-01] MEDS: Nystatin Powder 15gm Bottle 1 APPLIC TOPICAL ×2 (06:50→17:39)
[2022-01-01] MEDS: Acetaminophen 500 MG Tablet 1000 MG PO ×3 (06:52→21:46)
--- NOTE | 2022-01-01 08:27 | CASEMGMT ---
Social Work Received Medicaid Pending number and intake packet. Provided packet to pt. P# [id number] CHIDI [id number]
[2022-01-01] MEDS: Potassium Chloride Oral Tablet 20 MEQ PO (08:35)
[2022-01-01 12:52] VITALS: BP 101/47; PULSE 84; RESP 16; TEMP 36.4; O2SAT 98
--- NOTE | 2022-01-01 13:52 | NURSING ---
Pt to discharge tomorrow, Dr. Oakes's office was called in regards to h is victoria. N.O. to remove victoria.
[2022-01-01 17:33] VITALS: BP 120/74; PULSE 104
[2022-01-01] MEDS: ENZALUTAMIDE 40 MG CAPSULE 160 MG PO (21:43)
[2022-01-01] MEDS: Atorvastatin Calcium 80 MG Tablet PO (21:43)
[2022-01-02 06:01] LABS: International Normalized Ratio 2.2; Prothrombin Time (Protime)PT. 23.7 SECONDS (11.7-14.9)
[2022-01-02 06:19] VITALS: PULSE 98
[2022-01-02] MEDS: Loratadine 10 MG Tablet PO (06:19)
[2022-01-02] MEDS: Doxazosin 4 MG Tablet PO (06:19)
[2022-01-02] MEDS: Metoprolol Tartrate 50 MG Tablet PO (06:19)
[2022-01-02] MEDS: Cholecalciferol (VIT D3) 25 MCG TABLET (1,000 UNITS) PO (06:19)
[2022-01-02] MEDS: guaiFENesin 600 MG Tablet PO (06:19)
[2022-01-02] MEDS: Acetaminophen 500 MG Tablet 1000 MG PO (06:20)
[2022-01-02] MEDS: Nystatin Powder 15gm Bottle 1 APPLIC TOPICAL (06:25)
[2022-01-02] MEDS: Menthol/Lanolin/Calamine/Znox 113 GM Tube 1 APPLIC TOPICAL (06:25)
[2022-01-02] MEDS: Potassium Chloride Oral Tablet 20 MEQ PO (08:08)
[2022-01-02] MEDS: oxyCODONE 5 MG Tablet PO (08:14)
--- NOTE | 2022-01-02 10:44 | NURSING ---
report called to [facility] with no questions voiced.
== END 2022-01-02 10:30 | disposition intermediate care facility (04) | DRG 560 ==
PROVIDERS: Admitting Provider Family Medicine Geriatric Medicine; PCP Family Medicine Geriatric Medicine; Visit Provider Family Medicine Geriatric Medicine
DX: S72.002D Fracture of unspecified part of neck of left femur, subsequent encounter for closed fracture with routine healing (principal); I48.11 Longstanding persistent atrial fibrillation; C61 Malignant neoplasm of prostate; B35.4 Tinea corporis; E55.9 Vitamin D deficiency, unspecified; E78.5 Hyperlipidemia, unspecified; I25.10 Atherosclerotic heart disease of native coronary artery without angina pectoris; N40.0 Benign prostatic hyperplasia without lower urinary tract symptoms; I10 Essential (primary) hypertension; W07.XXXD Fall from chair, subsequent encounter; S42.302D Unspecified fracture of shaft of humerus, left arm, subsequent encounter for fracture with routine healing; Z79.01 Long term (current) use of anticoagulants; Z87.891 Personal history of nicotine dependence; Z86.16 Personal history of COVID-19; Z96.642 Presence of left artificial hip joint; Z79.899 Other long term (current) drug therapy
CPT/HCPCS: 36415; 74018; 80048; 80053; 85025; 85610; 87426; 92523; 97110; 97116; 97162; 97166; 97530; 97535; 97802; A4216

== ENCOUNTER 2022-01-03 04:00 | Outpatient (REF) | payer MEDICARE, SELFPAY ==
[2022-01-03 06:46] LABS: Hematocrit 31.7 % (40-54); Hemoglobin 10.5 g/dL (13.0-16.5); Mean Corp Hgb Conc 33.1 g/dL (32-36); Mean Corpuscular Hgb 30.1 pg (27.0-32.0); Mean Corpuscular Volume 90.8 fL (80-94); Mean Platelet Vol. 8.5 fl (6.2-12.0); Platelet Count 207 K/mm3 (150-450); RBC Distribution Width CV 15.3 % (11.6-14.6); RBC Distribution Width SD 49.8 fl (35.1-43.9); Red Blood Count 3.49 M/mm3 (4.6-6.2); White Blood Count 4.6 K/mm3 (4.4-11.0)
[2022-01-03 06:57] LABS: International Normalized Ratio 2.4; Prothrombin Time (Protime)PT. 25.4 SECONDS (11.7-14.9)
[2022-01-03 06:58] LABS: Partial Thromboplast Time 35.9 Seconds (24.1-36.2)
[2022-01-03 07:02] LABS: Anion Gap 6 (5-15); BUN 12 mg/dL (7-18); Calcium,Total 8.8 mg/dL (8.5-10.1); Chloride 108 mmol/L (98-107); Creatinine, Serum 0.54 mg/dL (0.70-1.30); EST Glomerular Filtration Rate 156 mL/min (>60); Est Glom Filt Rate - Afr Amer 189 mL/min (>60); Glucose 94 mg/dL (74-106); Sodium Level 141 mmol/L (136-145)
== END 2022-01-03 23:59 | disposition home or self-care (01) ==
LOC: OLS.SW500 04:00
PROVIDERS: PCP Family Medicine Geriatric Medicine; Visit Provider Family Medicine
DX: Z79.01 Long term (current) use of anticoagulants (principal); I10 Essential (primary) hypertension
CPT/HCPCS: 36415; 80048; 85027; 85610; 85730

== ENCOUNTER 2022-01-05 04:54 | Emergency (ER) | payer MEDICARE, SELFPAY ==
[2022-01-05 04:55] VITALS: BP 141/90; PULSE 95; RESP 16; TEMP 36.7; O2SAT 99; BMI 40.6
--- NOTE | 2022-01-05 05:16 | ED.VIS.GI ---
HPI HPI - GI History of Present Illness Chief Complaint: GI Bleed Narrative Narrative: 76-year-old male presenting with blood from his rectum. Patient states that he was having a bowel movement at [facility] where he currently resides after his left hip surgery and after being assisted to the bedside commode they told him that he had a bloody stool. He states he was told there was no stool in the commode. He reports that nobody looked at his rectum or evaluated it. He was sent to the emergency room because of the blood. Patient is on Coumadin for atrial fibrillation. He states that he usually is around 2 and has been checking it. Other than the bloody bowel movement he denies any pain. He is not lightheaded or weak. [facility] Medical History Atherosclerotic heart disease of [place] coronary artery without angina pectoris Closed fracture of left hip Closed left humeral fracture Essential hypertension Former tobacco use Fracture of ninth thoracic vertebra (12/27/18) History of Clostridium difficile infection (01/09/19) History of subdural hematoma (post traumatic) (12/27/18) Hyperlipidemia retirement (current) use of anticoagulants Longstanding persistent atrial fibrillation Sepsis Traumatic hemothorax (12/30/18) Home Medications atorvastatin 80 mg PO QHS 04/02/16 [History Last Taken 11/24/21 22:00 80 mg] potassium chloride 20 mEq tablet,extended release 20 meq PO DAILY 12/03/18 [History Last Taken 11/25/21 10:00 20 meq] cetirizine 10 mg PO DAILY 12/27/18 [History Last Taken 11/25/21 10:00 10 mg] metoprolol tartrate 50 mg tablet 50 mg PO BID 03/15/19 [History Last Taken 11/25/21 10:00 50 mg] leuprolide (3 month) 22.5 mg (3 month) intramuscular syringe kit 11.25 mg IM [id number] 04/23/20 [History Last Taken 08/26/21] cholecalciferol (vitamin D3) 1,250 mcg (50,000 unit) capsule 1,000 unit PO DAILY cap 10/29/20 [History Last Taken 11/24/21 22:00 1000 units] enzalutamide 160 mg PO DAILY 01/05/21 [History Last Taken 11/24/21 22:00 160 mg] nystatin [Nyamyc] 1 applic TOPICAL BID 12/14/21 [History Last Taken Unknown] guaifenesin [Mucus Relief ER] 600 mg PO BID 12/17/21 [History Last Taken Unknown] acetaminophen 1,000 mg PO Q8 #0 tab 12/30/21 [Rx Last Taken Unknown] alprazolam 0.25 mg PO Q8H PRN 3 Days #9 tab 12/30/21 [Rx Last Taken Unknown] bisacodyl 10 mg PO DAILY PRN PRN #0 tab 12/30/21 [Rx Last Taken Unknown] doxazosin 4 mg PO DAILY #0 tab 12/30/21 [Rx Last Taken Unknown] menthol-zinc oxide [Calmoseptine] 1 applic TOPICAL TID #0 g 12/30/21 [Rx Last Taken Unknown] oxycodone 5 mg PO Q4H PRN PRN 3 Days #18 tab 12/30/21 [Rx Last Taken Unknown] polyethylene glycol 3350 17 g PO DAILY #0 ea 12/30/21 [Rx Last Taken Unknown] sennosides-docusate sodium [Stool Softener-Stimulant Laxat] 2 tab PO BID #0 tab 12/30/21 [Rx Last Taken Unknown] warfarin [Jantoven] 6.5 mg PO DINNER #0 tab 12/30/21 [Rx Last Taken Unknown] Allergy/AdvReac Type Severity Reaction Status Date / Time amiodarone AdvReac Intermediate It did not Verified 01/05/22 05:01 work, also bad dreams and neuropathy Family History Father , Age 57 Myocardial infarction CAD (coronary artery disease) ETOH abuse Mother , Age 47, of bone cancer Bone cancer Brother , age 45, of AIDS AIDS (acquired immune deficiency syndrome) Surgical History H/O cervical spine surgery (01/2020) H/O coronary artery bypass surgery (11/26/98) History of left heart catheterization (11/26/98) History of left hip hemiarthroplasty History of thoracic spinal fusion (12/30/18) Social History household members: none Smoking Status: Former smoker alcohol intake: never substance use type: does not use ROS ROS ED Constitutional Constitutional ED: Denies chills or fever(s) ENT ENT ED: Denies rhinorrhea or sore throat Cardiovascular Cardiovascular: Denies chest pain or palpitations Respiratory/Chest Respiratory/Chest: Denies cough or dyspnea Gastrointestinal Gastrointestinal: Reports other Details: Bloody stool x1 ; Denies abdominal pain, nausea or vomiting Genitourinary Genitourinary ED: Denies dysuria or hematuria Musculoskeletal Musculoskeletal: Denies arthralgias or myalgias Integumentary Denies rash Neurologic Neurologic: Denies headache(s) or paresthesias EXAM Physical Exam Const Vital Signs: 01/05/22 04:55 01/05/22 06:37 Temperature 98.0 F Temperature Source Oral Pulse Rate 95 105 H Respiratory Rate 16 17 Blood Pressure 141/90 H 121/75 H Blood Pressure Mean 107 90 Pulse Ox 99 96 Oxygen Delivery Method Room Air Room Air Positive obese General Appearance ED: NAD; Negative for pallor Nutritional Appearance: obese HEENT Reports moist mucous membranes normocephalic and atraumatic Eyes PERRL and EOMs intact bilaterally General Eye ED: Negative for pale conjunctiva Resp normal respiratory effort and clear to auscultation bilaterally Cardio regular rate and regular rhythm GI GI Narrative: Blood around rectum. No active bleeding. No hemorrhoids visualized. Neuro Sensorium / Orientation: alert, oriented to person, oriented to place and oriented to time Psych mental status grossly normal Skin General Skin Exam: Negative for jaundice or pallor MDM MDM MDM Narrative Medical decision making narrative: 76-year-old male presenting after 1 episode of bloody stool. He states he has no symptoms. He states he has had rectal bleeding before but it was usually associated with rectal pain and hemorrhoids. I do not see any hemorrhoids on examination. He does have some blood around his rectum but is not actively bleeding. Patient otherwise has no complaints and has been feeling well. Blood work obtained today shows his white blood cell count is 4.0, hemoglobin 11.6 which is stable for him. Platelets normal at 175. INR is therapeutic at 2.5. Renal function and electrolytes are normal. He has an isolated elevation of his alkaline phosphatase otherwise LFTs appear to be normal. Patient was typed and screened initially out of concern for anemia although he does not require blood transfusion currently. He is hemodynamically stable and has not had any more bleeding. GI is not available. I spoke with Dr. Julio who is on-call for surgery who recommended that I transfer the patient. Patient was discussed with Tho medina who accepted. The accepting physician is Dr. Brenner. Tho Medina did request a Covid swab be done which will be performed. When this is back he will be transferred. Impression: 1. Lower GI bleed Lab Data Labs: Laboratory Results - last 24 hr 01/05/22 01/05/22 01/05/22 05:08 05:08 05:08 WBC 4.0 L RBC 3.81 L Hgb 11.6 L Hct 34.4 L MCV 90.3 MCH 30.4 MCHC 33.7 RDW Std Deviation 48.9 H RDW Coeff of Dick 15.0 H Plt Count 175 MPV 8.2 Immature Gran % (Auto) 0.200 Neut % (Auto) 57.9 Lymph % (Auto) 26.4 Bonner % (Auto) 7.5 Eos % (Auto) 7.5 H Baso % (Auto) 0.5 Absolute Neuts (auto) 2.3 Absolute Lymphs (auto) 1.06 Nucleated RBC % 0 PT 26.4 H INR 2.5 Sodium 141 Potassium 3.9 Chloride 106 Carbon Dioxide 30.0 Anion Gap 5 BUN 14 Creatinine 0.50 L Estim Creat Clear Calc 71.13 Est GFR (MDRD) Af Amer 208 Est GFR (MDRD) Non-Af 172 BUN/Creatinine Ratio 27.9 H Glucose 102 Calcium 8.7 Total Bilirubin 1.00 AST 19 ALT 19 Alkaline Phosphatase 185 H Total Protein 6.4 Albumin 2.5 L Globulin 3.9 Albumin/Globulin Ratio 0.6 L Blood Type Antibody Screen 01/05/22 01/05/22 05:08 05:49 WBC RBC Hgb Hct MCV MCH MCHC RDW Std Deviation RDW Coeff of Dick Plt Count MPV Immature Gran % (Auto) Neut % (Auto) Lymph % (Auto) Bonner % (Auto) Eos % (Auto) Baso % (Auto) Absolute Neuts (auto) Absolute Lymphs (auto) Nucleated RBC % PT INR Sodium Potassium Chloride Carbon Dioxide Anion Gap BUN Creatinine Estim Creat Clear Calc Est GFR (MDRD) Af Amer Est GFR (MDRD) Non-Af BUN/Creatinine Ratio Glucose Calcium Total Bilirubin AST ALT Alkaline Phosphatase Total Protein Albumin Globulin Albumin/Globulin Ratio Blood Type Cancelled O POSITIVE Antibody Screen Cancelled NEGATIVE Discharge Plan Triage Chief Complaint: GI Bleed ED Provider: Corwin Cohen Dx/Rx/DC Orders Prescriptions: No Action potassium chloride 20 mEq tablet extended release 20 meq PO DAILY RF: 0 cholecalciferol (vitamin D3) 1,250 mcg (50,000 unit) capsule 1,000 unit PO DAILY RF: 0 metoprolol tartrate 50 mg tablet 50 mg PO BID RF: 0 Lupron Depot (3 month) 22.5 mg syringe kit 11.25 mg IM [id number] RF: 0 atorvastatin 80 MG tablet 80 mg PO QHS RF: 0 cetirizine 10 MG capsule 10 mg PO DAILY RF: 0 enzalutamide 40 MG capsule 160 mg PO DAILY RF: 0 nystatin [Nyamyc] 100,000 unit/gram powder 1 applic topical BID RF: 0 guaifenesin [Mucus Relief ER] 600 mg tablet extended release 12hr 600 mg PO BID RF: 0 polyethylene glycol 3350 17 gram Powder In Packet 17 g PO DAILY Qty: 0 RF: 0 sennosides-docusate sodium [Stool Softener-Stimulant Laxat] 8.6-50 mg Tablet 2 tab PO BID Qty: 0 RF: 0 warfarin [Jantoven] 2.5 mg Tablet 6.5 mg PO DINNER Qty: 0 RF: 0 acetaminophen 500 mg Tablet 1,000 mg PO Q8 Qty: 0 RF: 0 alprazolam 0.25 mg Tablet 0.25 mg PO Q8H PRN (Reason: Anxiety) 3 Days Qty: 9 RF: 0 doxazosin 4 mg Tablet 4 mg PO DAILY Qty: 0 RF: 0 bisacodyl 5 mg Tablet,Delayed Release (Dr/Ec) 10 mg PO DAILY PRN PRN (Reason: Constipation) Qty: 0 RF: 0 oxycodone 5 mg Tablet 5 mg PO Q4H PRN PRN (Reason: Pain Score 4-10) 3 Days Qty: 18 RF: 0 menthol-zinc oxide [Calmoseptine] 0.44-20.6 % Ointment 1 applic topical TID Qty: 0 RF: 0 Primary Care Provider: Robert Hirsch Referrals: Robert Hirsch MD [Primary Care Provider] -
[2022-01-05 05:22] LABS: Absolute Lymphocyte Count 1.06 X10^3/uL (0.83-4.51); Absolute Neutrophil Count 2.3 X10^3/uL (2.0-7.7); Basophil# 0.02 X10^3/uL; Basophil% 0.5 % (0-1); Eosinophils% 7.5 % (0-5); Hematocrit 34.4 % (40-54); Hemoglobin 11.6 g/dL (13.0-16.5); Lymphocyte # 1.06 X10^3/ul (0.83-4.51); Lymphocyte % 26.4 % (19-41); Mean Corp Hgb Conc 33.7 g/dL (32-36); Mean Corpuscular Hgb 30.4 pg (27.0-32.0); Mean Corpuscular Volume 90.3 fL (80-94); Mean Platelet Vol. 8.2 fl (6.2-12.0); Monocyte% 7.5 % (0-10); NRBC Flagged by Analyzer 0 % (0-5); Neutrophil # 2.33 X10^3/uL (2.7-7.7); Neutrophil % 57.9 % (47-70); Platelet Count 175 K/mm3 (150-450); RBC Distribution Width SD 48.9 fl (35.1-43.9); Red Blood Count 3.81 M/mm3 (4.6-6.2)
[2022-01-05 05:37] LABS: International Normalized Ratio 2.5; Prothrombin Time (Protime)PT. 26.4 SECONDS (11.7-14.9)
[2022-01-05 05:41] LABS: ALB/GLOB Ratio 0.6 RATIO (0.9-2.4); AST(SGOT) 19 U/L (15-37); Alanine Aminotransfer ALT/SGPT 19 U/L (16-61); Albumin, Serum 2.5 g/dL (3.2-5.0); Alkaline Phosphatase 185 U/L (45-117); Anion Gap 5 (5-15); BUN 14 mg/dL (7-18); BUN/Creat Ratio 27.9 RATIO (10-20); Calcium,Total 8.7 mg/dL (8.5-10.1); Chloride 106 mmol/L (98-107); EST Glomerular Filtration Rate 172 mL/min (>60); Est Glom Filt Rate - Afr Amer 208 mL/min (>60); Estimated Creatinine Clearance 71.13 ml/min; Globulin 3.9 g/dL (2.2-4.2); Glucose 102 mg/dL (74-106); Potassium 3.9 mmol/L (3.5-5.1); Protein, Total 6.4 g/dL (6.4-8.2); Sodium Level 141 mmol/L (136-145)
--- NOTE | 2022-01-05 06:32 | ED.RN ---
CALLED [facility] TO GIVE UPDATE ON PATIENT TRANSFER PENDING TO [facility] SO THEY HAVE AN UPDATE BEFORE THIS NURSE LEAVES FOR SHIFT. TALKED TO TYREE MAURICIO, CARLOS ALBERTO.
[2022-01-05 06:37] VITALS: BP 121/75; PULSE 105; RESP 17; O2SAT 96
--- NOTE | 2022-01-05 06:50 | ED.RN ---
[facility] IS AWARE [facility] ACCEPTED PATIENT AND WILL NOT BE RETURBING TO THEM
--- NOTE | 2022-01-05 07:51 | ED.RN ---
THIS RN ATTEMPTED TO CALL REPORT TO [phone]. RN WAS UNAVAILABLE TO TAKE REPORT AND WAS ASKED TO CALL BACK IN 25 MIN.
[2022-01-05 07:52] VITALS: BP 144/79; PULSE 82; RESP 18; O2SAT 97
[2022-01-05 09:06] VITALS: BP 135/70; PULSE 80; RESP 18; O2SAT 98
== END 2022-01-05 09:09 | disposition short-term general hospital (02) ==
LOC: ED 05:48
PROVIDERS: Emergency Provider Student in an Organized Health Care Education/Training Program; PCP Family Medicine; Visit Provider Student in an Organized Health Care Education/Training Program
DX: K92.2 Gastrointestinal hemorrhage, unspecified (principal); I25.10 Atherosclerotic heart disease of native coronary artery without angina pectoris; E66.9 Obesity, unspecified; Z87.891 Personal history of nicotine dependence
CPT/HCPCS: 80053; 82274; 85025; 85610; 86850; 86900; 86901; 87426; 99285; A4216

== ENCOUNTER 2022-01-13 04:00 | Outpatient (REF) | payer MEDICARE, SELFPAY ==
[2022-01-13 08:01] LABS: INR Fingerstick 1.2; Prothrombin Time Fingerstick 14.9 SEC (11.7-14.9)
== END 2022-01-13 23:59 | disposition home or self-care (01) ==
LOC: OLS.SW500 04:00
PROVIDERS: PCP Family Medicine; Referring Provider Family Medicine; Visit Provider Family Medicine
DX: I48.91 Unspecified atrial fibrillation (principal)
CPT/HCPCS: 36416; 85610

== ENCOUNTER → 2022-01-20 | Outpatient (REF) | payer SELFPAY ==
[2022-01-20 08:44] LABS: INR Fingerstick 1.6; Prothrombin Time Fingerstick 19.3 SEC (11.7-14.9)
== END | disposition home or self-care (01) ==
LOC: OLS.SW500 04:00
PROVIDERS: PCP Family Medicine; Visit Provider Family Medicine
DX: I48.91 Unspecified atrial fibrillation (principal); Z79.01 Long term (current) use of anticoagulants
CPT/HCPCS: 36416; 85610

== ENCOUNTER → 2022-01-21 | Outpatient (REF) | payer SELFPAY ==
[2022-01-21 06:49] LABS: Bacteria 0 SEEN /hpf (None Seen); Mucous, Urine 0 SEEN /hpf (<or=2+); Red Blood Cells-Urine 0 SEEN /hpf (0-5); Squamous Epithelial Cells - UA 0 SEEN /hpf (0-5); White Blood Cells 0 SEEN /hpf (0-5)
[2022-01-21 07:03] LABS: Color, Urine Yellow (Yellow); Glucose, Dipstick Normal (Normal); Ketone-Dipstick Negative (Negative); Leukocyte Esterase-Dipstick Negative /ul (Negative); Nitrite-Dipstick Negative (Negative); Occult Blood-Urine Negative /ul (Negative); Protein-Dipstick Negative (Negative); Specific Gravity, Urine 1.015 (1.002-1.030); Urine Bilirubin Dipstick Negative (Negative); Urine Clarity Clear (Clear); Urine Urobilinogen Normal (Normal)
== END | disposition home or self-care (01) ==
LOC: OLS.SW500 06:48
PROVIDERS: PCP Family Medicine; Visit Provider Family Medicine
DX: N39.0 Urinary tract infection, site not specified (principal)
CPT/HCPCS: 81001; 87086; 87088

== ENCOUNTER 2022-01-27 04:00 | Outpatient (REF) | payer MEDICARE, SELFPAY ==
[2022-01-27 08:01] LABS: INR Fingerstick 1.5; Prothrombin Time Fingerstick 18.1 SEC (11.7-14.9)
== END 2022-01-27 23:59 | disposition home or self-care (01) ==
LOC: OLS.SW500 04:00
PROVIDERS: PCP Family Medicine; Referring Provider Family Medicine; Visit Provider Family Medicine
DX: Z79.01 Long term (current) use of anticoagulants (principal)
CPT/HCPCS: 36416; 85610

== ENCOUNTER → 2022-01-28 | Outpatient (REF) | payer SELFPAY ==
[2022-01-28 08:54] LABS: Hematocrit 31.8 % (40-54); Hemoglobin 10.6 g/dL (13.0-16.5); Mean Corp Hgb Conc 33.3 g/dL (32-36); Mean Corpuscular Hgb 30.1 pg (27.0-32.0); Mean Corpuscular Volume 90.3 fL (80-94); Mean Platelet Vol. 9.5 fl (6.2-12.0); Platelet Count 163 K/mm3 (150-450); RBC Distribution Width CV 14.2 % (11.6-14.6); RBC Distribution Width SD 46.5 fl (35.1-43.9); Red Blood Count 3.52 M/mm3 (4.6-6.2); White Blood Count 4.5 K/mm3 (4.4-11.0)
[2022-01-28 09:04] LABS: Anion Gap 5 (5-15); BUN 13 mg/dL (7-18); BUN/Creat Ratio 21.9 RATIO (10-20); Chloride 109 mmol/L (98-107); Creatinine, Serum 0.59 mg/dL (0.70-1.30); EST Glomerular Filtration Rate 141 mL/min (>60); Est Glom Filt Rate - Afr Amer 171 mL/min (>60); Glucose 95 mg/dL (74-106); Potassium 3.6 mmol/L (3.5-5.1); Sodium Level 141 mmol/L (136-145)
== END | disposition home or self-care (01) ==
LOC: OLS.SW500 05:00
PROVIDERS: PCP Family Medicine; Visit Provider Family Medicine
DX: E78.5 Hyperlipidemia, unspecified (principal)
CPT/HCPCS: 36415; 80048; 85027

== ENCOUNTER → 2022-02-03 | Outpatient (REF) | payer SELFPAY ==
[2022-02-03 07:01] LABS: INR Fingerstick 1.8; Prothrombin Time Fingerstick 21.7 SEC (11.7-14.9)
== END | disposition home or self-care (01) ==
LOC: OLS.SW500 04:00
PROVIDERS: PCP Family Medicine; Visit Provider Internal Medicine
DX: Z79.01 Long term (current) use of anticoagulants (principal)
CPT/HCPCS: 36416; 85610

== ENCOUNTER → 2022-02-10 | Outpatient (REF) | payer MEDICARE, SELFPAY ==
[2022-02-10 07:00] LABS: INR Fingerstick 1.5; Prothrombin Time Fingerstick 17.7 SEC (11.7-14.9)
== END | disposition home or self-care (01) ==
LOC: OLS.SW500 04:00
PROVIDERS: PCP Family Medicine; Visit Provider Internal Medicine
DX: Z79.01 Long term (current) use of anticoagulants (principal)
CPT/HCPCS: 36416; 85610

== ENCOUNTER → 2022-02-17 | Outpatient (REF) | payer MEDICARE, SELFPAY ==
[2022-02-17 13:21] LABS: INR Fingerstick 1.6; Prothrombin Time Fingerstick 19.8 SEC (11.7-14.9)
== END | disposition home or self-care (01) ==
LOC: OLS.SW500 04:00
PROVIDERS: PCP Family Medicine; Referring Provider Family Medicine; Visit Provider Family Medicine
DX: Z79.01 Long term (current) use of anticoagulants (principal)
CPT/HCPCS: 36416; 85610

== ENCOUNTER → 2022-02-24 | Outpatient (REF) | payer MEDICARE, SELFPAY ==
[2022-02-24 07:36] LABS: INR Fingerstick 1.9; Prothrombin Time Fingerstick 22.8 SEC (11.7-14.9)
== END | disposition home or self-care (01) ==
LOC: OLS.SW500 05:00
PROVIDERS: PCP Family Medicine; Visit Provider Family Medicine
DX: I48.91 Unspecified atrial fibrillation (principal); Z79.01 Long term (current) use of anticoagulants
CPT/HCPCS: 36416; 85610

== ENCOUNTER → 2022-02-25 | Outpatient (REF) | payer MEDICARE, SELFPAY ==
[2022-02-25 08:06] LABS: Hematocrit 32.5 % (40-54); Hemoglobin 10.7 g/dL (13.0-16.5); Mean Corp Hgb Conc 32.9 g/dL (32-36); Mean Corpuscular Volume 88.1 fL (80-94); Mean Platelet Vol. 9.5 fl (6.2-12.0); Platelet Count 171 K/mm3 (150-450); RBC Distribution Width CV 13.5 % (11.6-14.6); RBC Distribution Width SD 43.6 fl (35.1-43.9); Red Blood Count 3.69 M/mm3 (4.6-6.2); White Blood Count 4.7 K/mm3 (4.4-11.0)
[2022-02-25 08:15] LABS: Anion Gap 5 (5-15); BUN 13 mg/dL (7-18); BUN/Creat Ratio 23.8 RATIO (10-20); Calcium,Total 8.2 mg/dL (8.5-10.1); Chloride 110 mmol/L (98-107); Creatinine, Serum 0.55 mg/dL (0.70-1.30); EST Glomerular Filtration Rate 156 mL/min (>60); Est Glom Filt Rate - Afr Amer 188 mL/min (>60); Glucose 96 mg/dL (74-106); Potassium 3.6 mmol/L (3.5-5.1); Sodium Level 143 mmol/L (136-145)
== END | disposition home or self-care (01) ==
LOC: OLS.SW500 07:00
PROVIDERS: PCP Family Medicine; Visit Provider Family Medicine
DX: I48.91 Unspecified atrial fibrillation (principal); E78.5 Hyperlipidemia, unspecified
CPT/HCPCS: 36415; 80048; 85027

== ENCOUNTER → 2022-02-27 | Outpatient (REF) | payer MEDICARE, SELFPAY ==
[2022-02-27 07:05] LABS: INR Fingerstick 1.7; Prothrombin Time Fingerstick 20.1 SEC (11.7-14.9)
== END | disposition home or self-care (01) ==
LOC: OLS.SW500 05:00
PROVIDERS: PCP Family Medicine; Referring Provider Family Medicine; Visit Provider Family Medicine
DX: I48.91 Unspecified atrial fibrillation (principal); Z79.01 Long term (current) use of anticoagulants
CPT/HCPCS: 36416; 85610

== ENCOUNTER → 2022-03-03 | Outpatient (CLI) | payer MEDICARE, SELFPAY ==
[2022-03-03 17:14] LABS: Absolute Neutrophil Count 2.8 X10^3/uL (2.0-7.7); Basophil# 0.01 X10^3/uL; Basophil% 0.2 % (0-1); Eosinophil# 0.22 X10^3/uL; Hematocrit 34.2 % (40-54); Lymphocyte % 22.6 % (19-41); Mean Corp Hgb Conc 32.2 g/dL (32-36); Mean Corpuscular Hgb 29.1 pg (27.0-32.0); Mean Corpuscular Volume 90.5 fL (80-94); Mean Platelet Vol. 9.9 fl (6.2-12.0); Monocyte# 0.38 X10^3/uL; Monocyte% 8.6 % (0-10); NRBC Flagged by Analyzer 0 % (0-5); Neutrophil # 2.81 X10^3/uL (2.7-7.7); Neutrophil % 63.4 % (47-70); Platelet Count 153 K/mm3 (150-450); RBC Distribution Width CV 14.1 % (11.6-14.6); RBC Distribution Width SD 46.7 fl (35.1-43.9); Red Blood Count 3.78 M/mm3 (4.6-6.2); White Blood Count 4.4 K/mm3 (4.4-11.0)
[2022-03-03 17:23] LABS: Vitamin D,25 Hydroxy 53.4 ng/mL
[2022-03-03 17:41] LABS: International Normalized Ratio 1.6; Prothrombin Time (Protime)PT. 19.1 SECONDS (11.7-14.9)
[2022-03-03 17:53] LABS: ALB/GLOB Ratio 0.9 RATIO (0.9-2.4); AST(SGOT) 20 U/L (15-37); Alanine Aminotransfer ALT/SGPT 17 U/L (16-61); Alkaline Phosphatase 110 U/L (45-117); Anion Gap 7 (5-15); BUN 14 mg/dL (7-18); BUN/Creat Ratio 18.4 RATIO (10-20); Chloride 108 mmol/L (98-107); Creatinine, Serum 0.76 mg/dL (0.70-1.30); EST Glomerular Filtration Rate 106 mL/min (>60); Est Glom Filt Rate - Afr Amer 129 mL/min (>60); Globulin 3.4 g/dL (2.2-4.2); Glucose 110 mg/dL (74-106); Potassium 4.3 mmol/L (3.5-5.1); Protein, Total 6.4 g/dL (6.4-8.2); Sodium Level 143 mmol/L (136-145); Thyroid Stim Hormone (TSH) 3.33 uIU/mL (0.358-3.74)
== END | disposition home or self-care (01) ==
LOC: POLAB3 11:41
PROVIDERS: Internal Medicine Cardiovascular Disease; PCP Family Medicine Geriatric Medicine; Visit Provider Family Medicine Geriatric Medicine
DX: E55.9 Vitamin D deficiency, unspecified (principal); F52.8 Other sexual dysfunction not due to a substance or known physiological condition; I10 Essential (primary) hypertension; Z79.01 Long term (current) use of anticoagulants
CPT/HCPCS: 36415; 80053; 82306; 84403; 84443; 85025; 85610

== ENCOUNTER → 2022-03-10 | Outpatient (CLI) | payer MEDICARE, SELFPAY ==
--- NOTE | 2022-03-10 13:43 | RAD_ITS ---
STUDY: X-RAY - LUMBOSACRAL SPINE REASON FOR EXAM: Male, 76 years old. LUMBAR SPINAL STENOSIS TECHNIQUE: 7 view(s) of the lumbosacral spine were obtained including oblique and flexion and extension views.. COMPARISON: None FINDINGS: Normal lumbar lordosis. There is no substantial scoliosis. There is normal alignment of the vertebrae. There is multilevel endplate spondylosis of the lumbar vertebrae. There is multi-level degenerative disc disease with multi-level disc space narrowing. Facet joint osteoarthritis. 50% collapse of the L4 vertebra in keeping with the compression fracture. 20% loss of the L4 vertebrae. Prior fusion of the lower thoracic spine. Normal bilateral sacral ala, sacroiliac joints, and visualized sacrum. Metallic radiation seeds are seen within the prostate gland. The patient is status post left total hip replacement. Aortic calcification. Findings suggestive of left intrarenal calculi. RAD/L/S Spine w Bend Min 6 Vw IMPRESSION: Degenerative changes of the spine, as detailed above. 50% loss of height of the L4 vertebra in keeping with a compression fracture. 20% loss of height of the L5 vertebrae. Electronically Signed: Benjie Lieberman MD at 14:56 EDT ,
--- NOTE | 2022-03-10 13:52 | RAD_ITS ---
STUDY: X-RAY - RIGHT CALCANEUS REASON FOR EXAM: Heel pain. TECHNIQUE: 2 view(s) of the calcaneus were obtained. COMPARISON: None. FINDINGS: There is a small posterior calcaneal enthesophyte. Otherwise, unremarkable visualized calcaneus. There is vascular calcification. RAD/Calcaneus min 2 Views IMPRESSION: Small posterior calcaneal enthesophyte. Electronically Signed: Barak Frye MD at 14:58 EDT ,
--- NOTE | 2022-03-10 14:02 | RAD_ITS ---
STUDY: X-RAY - LEFT CALCANEUS REASON FOR EXAM: Heel pain. TECHNIQUE: 2 view(s) of the calcaneus were obtained. COMPARISON: None. FINDINGS: There is a small posterior calcaneal enthesophyte. Otherwise, unremarkable visualized calcaneus. There is vascular calcification. RAD/Calcaneus min 2 Views IMPRESSION: Small posterior calcaneal enthesophyte. Electronically Signed: Barak Frye MD at 14:55 EDT ,
[2022-03-10 16:00] LABS: International Normalized Ratio 2.4; Prothrombin Time (Protime)PT. 26.2 SECONDS (11.7-14.9)
== END | disposition home or self-care (01) ==
PROVIDERS: PCP Family Medicine Geriatric Medicine; Referring Provider Internal Medicine Cardiovascular Disease; Visit Provider Internal Medicine Cardiovascular Disease
DX: Z79.01 Long term (current) use of anticoagulants (principal); I48.91 Unspecified atrial fibrillation; M79.609 Pain in unspecified limb; M48.061 Spinal stenosis, lumbar region without neurogenic claudication
CPT/HCPCS: 36415; 72114; 73650; 85610

== ENCOUNTER → 2022-03-25 | Outpatient (CLI) | payer MEDICARE, SELFPAY ==
[2022-03-25 17:42] LABS: Absolute Lymphocyte Count 0.92 X10^3/uL (0.83-4.51); Absolute Neutrophil Count 3.2 X10^3/uL (2.0-7.7); Basophil# 0.02 X10^3/uL; Basophil% 0.4 % (0-1); Eosinophil# 0.17 X10^3/uL; Eosinophils% 3.5 % (0-5); Hematocrit 35.3 % (40-54); Hemoglobin 11.3 g/dL (13.0-16.5); Lymphocyte # 0.92 X10^3/ul (0.83-4.51); Lymphocyte % 19.2 % (19-41); Mean Corpuscular Hgb 29.3 pg (27.0-32.0); Mean Corpuscular Volume 91.5 fL (80-94); Mean Platelet Vol. 10.2 fl (6.2-12.0); Monocyte# 0.43 X10^3/uL; NRBC Flagged by Analyzer 0 % (0-5); Neutrophil # 3.24 X10^3/uL (2.7-7.7); Neutrophil % 67.7 % (47-70); Platelet Count 142 K/mm3 (150-450); RBC Distribution Width CV 13.6 % (11.6-14.6); RBC Distribution Width SD 46.2 fl (35.1-43.9); Red Blood Count 3.86 M/mm3 (4.6-6.2); White Blood Count 4.8 K/mm3 (4.4-11.0)
[2022-03-25 17:55] LABS: International Normalized Ratio 1.6; Prothrombin Time (Protime)PT. 18.9 SECONDS (11.7-14.9)
[2022-03-25 18:31] LABS: Vitamin D,25 Hydroxy 65.4 ng/mL
[2022-03-25 18:42] LABS: ALB/GLOB Ratio 0.9 RATIO (0.9-2.4); AST(SGOT) 17 U/L (15-37); Alanine Aminotransfer ALT/SGPT 17 U/L (16-61); Albumin, Serum 3.3 g/dL (3.2-5.0); Alkaline Phosphatase 108 U/L (45-117); Anion Gap 5 (5-15); BUN 19 mg/dL (7-18); BUN/Creat Ratio 28.4 RATIO (10-20); Calcium,Total 9.2 mg/dL (8.5-10.1); Chloride 108 mmol/L (98-107); Creatinine, Serum 0.67 mg/dL (0.70-1.30); EST Glomerular Filtration Rate 123 mL/min (>60); Est Glom Filt Rate - Afr Amer 149 mL/min (>60); Globulin 3.6 g/dL (2.2-4.2); Glucose 92 mg/dL (74-106); Potassium 3.8 mmol/L (3.5-5.1); Protein, Total 6.9 g/dL (6.4-8.2); Sodium Level 142 mmol/L (136-145); Thyroid Stim Hormone (TSH) 3.29 uIU/mL (0.358-3.74)
== END | disposition home or self-care (01) ==
LOC: POLAB3 14:36
PROVIDERS: Internal Medicine Cardiovascular Disease; PCP Family Medicine Geriatric Medicine; Visit Provider Family Medicine Geriatric Medicine
DX: E55.9 Vitamin D deficiency, unspecified (principal); I48.91 Unspecified atrial fibrillation; F52.8 Other sexual dysfunction not due to a substance or known physiological condition; I10 Essential (primary) hypertension; Z79.01 Long term (current) use of anticoagulants
CPT/HCPCS: 80053; 82306; 84403; 84443; 85025; 85610

== ENCOUNTER 2022-04-06 08:37 | Inpatient (IN) | payer MEDICARE, SELFPAY ==
[2022-04-06] VITALS (7 sets, daily range): BP systolic 119–152; BP diastolic 63–94; PULSE 86–111; RESP 16–20; TEMP 36.6–38.6; O2SAT 92–98; BMI 37.8; BMI 38.7
--- NOTE | 2022-04-06 09:03 | CT_ITS ---
STUDY: CT BRAIN WITHOUT CONTRAST REASON FOR EXAM: Male, 76 years old. Fall RADIATION DOSAGE (If Supplied By Facility): CTDIvol = ( 44.99 ) mGy, DLP = ( 863.60 ) mGycm TECHNIQUE: Transaxial CT imaging of the brain was performed without administration of intravenous contrast material. The patient''s head is tilted to the left Individualized dose optimization techniques were used for this CT. COMPARISON: Noncontrast CT brain 12/27/2018 FINDINGS: Normal soft tissue structures. Normal calvarium. There are atherosclerotic calcifications in the cavernous segments of the bilateral internal carotid arteries. There is mild cerebral atrophy with widening of the extra-axial spaces and ventricular dilatation. Normal white matter tracts of the cerebral hemispheres. Normal basal ganglia and thalami. Normal brainstem. Normal cerebellum. There is no intracranial hemorrhage. There are no findings of an acute ischemic infarction. Mild mucoperiosteal thickening in the inferior recess of the left sphenoid sinus and in the inferior right maxillary sinus. The remaining visualized paranasal sinuses are clear. CT/Brain/Head without Contrast IMPRESSION: Chronic involutional changes of the brain. The intracranial hemorrhage seen in December 2018 has cleared. No acute intracranial injury. Electronically Signed: Andrews Hugo MD at 10:02 EDT ,
[2022-04-06 09:31] LABS: Absolute Lymphocyte Count 0.22 X10^3/uL (0.83-4.51); Absolute Neutrophil Count 4.9 X10^3/uL (2.0-7.7); Basophil# 0.01 X10^3/uL; Basophil% 0.2 % (0-1); Hematocrit 38.9 % (40-54); Hemoglobin 12.5 g/dL (13.0-16.5); Lymphocyte # 0.22 X10^3/ul (0.83-4.51); Mean Corp Hgb Conc 32.1 g/dL (32-36); Mean Corpuscular Hgb 28.3 pg (27.0-32.0); Mean Corpuscular Volume 88.2 fL (80-94); Monocyte# 0.35 X10^3/uL; Monocyte% 6.3 % (0-10); NRBC Flagged by Analyzer 0 % (0-5); Neutrophil % 88.8 % (47-70); POSITIVE DIFFERENTIAL YES; Platelet Count 122 K/mm3 (150-450); RBC Distribution Width CV 13.7 % (11.6-14.6); RBC Distribution Width SD 44.7 fl (35.1-43.9); Red Blood Count 4.41 M/mm3 (4.6-6.2); White Blood Count 5.5 K/mm3 (4.4-11.0)
[2022-04-06 09:34] LABS: Differential Indicated SCAN CRITERIA MET
[2022-04-06 09:45] LABS: Anion Gap 9 (5-15); BUN 22 mg/dL (7-18); Calcium,Total 8.6 mg/dL (8.5-10.1); Chloride 108 mmol/L (98-107); Creatinine, Serum 1.05 mg/dL (0.70-1.30); EST Glomerular Filtration Rate 73 mL/min (>60); Est Glom Filt Rate - Afr Amer 89 mL/min (>60); Estimated Creatinine Clearance 67.75 ml/min; Glucose 148 mg/dL (74-106); Potassium 3.5 mmol/L (3.5-5.1); Sodium Level 142 mmol/L (136-145)
--- NOTE | 2022-04-06 09:45 | RAD_ITS ---
STUDY: X-RAY - LEFT TIBIA AND FIBULA REASON FOR EXAM: Male, 76 years old. Fall TECHNIQUE: 2 view(s) of the tibia and fibula were obtained on 4 films. COMPARISON: None. FINDINGS: There is a transverse fracture through the medial malleolus. The inferior fracture margin appears mildly sclerotic, suggesting this may be subacute. Mild deformity along the posterior malleolus of the tibia raises concern of a vertical fracture at that site as well. There is an oblique nondisplaced fracture through the distal metadiaphysis of the fibula. Slight cortical irregularity also seen at the tip of the lateral malleolus. There is mild soft tissue swelling of the lower leg. Atherosclerotic intimal calcifications of the tibioperoneal arteries present. 2 soft tissue excrescences are seen at the posteromedial aspect of the mid to distal third of the lower leg. Nearby, a number of small clips are present in the subcutaneous tissues. RAD/Tibia & Fibula 2 Views IMPRESSION: 1. Bimalleolar, possible trimalleolar ankle fracture, age uncertain. 2. Soft tissue swelling. There are rounded soft tissue excrescences also at the posteromedial mid to distal third of the lower leg. 3. Cluster of small surgical clips noted in the posterior medial subcutaneous tissues of the mid to distal third of the lower leg as well. 4. Atherosclerotic intimal calcifications of the tibioperoneal arteries are present. Electronically Signed: Andrews Hugo MD at 11:02 EDT ,
--- NOTE | 2022-04-06 09:45 | RAD_ITS ---
STUDY: X-RAY - LEFT FEMUR REASON FOR STUDY: Male, 76 years old. Fall, pain TECHNIQUE: 2 view(s) of the femur on 4 images. COMPARISON: AP pelvis and additional views of the left hip 12/13/2021; post left hip arthroplasty views of the pelvis/hips 12/15/2021 FINDINGS: Again seen are changes of prior left total hip arthroplasty. Minimal bipolar hip prosthesis appears well seated, and in anatomic alignment. Otherwise, normal left femur. Atherosclerotic femoral popliteal intimal calcifications are noted. Incidental note of numerous metal surgical clips, radiation seeds, or fiduciary markers in the prostate gland. There is no demonstrated fracture or destructive process. RAD/Femur Min 2 Views IMPRESSION: Prior left total hip arthroplasty. No acute osseous abnormality of the left femur. Electronically Signed: Andrews Hugo MD at 11:04 EDT ,
--- NOTE | 2022-04-06 09:45 | RAD_ITS ---
STUDY: X-RAY CHEST REASON FOR EXAM: Male, 76 years old. Fall TECHNIQUE: Single AP portable supine view of the chest. COMPARISON: Portable AP supine chest x-ray 12/13/2021; CT abdomen and pelvis 08/22/2000 8:15 FINDINGS: There is some stranding density in the left mid lung and medial left base superimposed on the cardiac silhouette, suggesting atelectasis. Minor volume loss may also be present in the right base. Fullness in the right cardiophrenic angle correlation are prominent epicardial fat pad on CT There is no demonstrated pleural abnormality. There is stable cardiac enlargement. Sternal cerclage wires are present from a prior sternotomy. Normal mediastinum and parul. Normal visualized pulmonary arteries. Normal visualized aortic arch and descending thoracic aorta. There are stable degenerative changes of the visualized thoracic spine. Bilateral metal fixation hardware extending from T7 to T12 again noted. There is an old healed fracture deformity of the posterolateral left fourth rib. There is no demonstrated abnormality of the visualized soft tissue structures of the upper abdomen. RAD/Chest 1 View (Portable) IMPRESSION: 1. No sign of acute thoracic injury. 2. Stable cardiac enlargement. Prior median sternotomy. No CHF. 3. Mild subsegmental atelectasis in the left base. 4. Bilateral metal fixation hardware again seen in the spine T7-T12. Electronically Signed: Andrews Hugo MD at 10:24 EDT ,
--- NOTE | 2022-04-06 09:45 | RAD_ITS ---
STUDY: X-RAY - LEFT FOOT CLINICAL: Male, 76 years old. Fall. Pain, fall, large blisters all over feet and lower leg, seeping TECHNIQUE: 3 view(s) of the foot. COMPARISON: None. FINDINGS: Deformities at the medial malleolus and distal metadiaphysis of the fibula raise question of fractures, age uncertain. Normal talus, calcaneus, and tarsal bones. Normal visualized subtalar, talonavicular, calcaneocuboid, tarsal and tarsometatarsal articulations. Mild cortical irregularity/spurring at the medial head of the first metatarsal, as well as early lateral distal periarticular degenerative lipping. Normal 2-5 metatarsi. There is a borderline hallux valgus deformity. Normal tibial and fibular sesamoid bones. Normal interphalangeal joint of the great toe. Normal phalanges of the great toe. Normal second through fifth metatarsophalangeal joints. Normal interphalangeal joints and phalanges of the lesser toes. There is soft tissue swelling of the midfoot. Borderline soft tissue fullness medial to the first metatarsal phalangeal joint. Atherosclerotic intimal calcifications noted in the anterior and posterior tibial arteries, extending through the forefoot. There is no periosteal reaction, osseous destructive lesion, or acute demonstrated fracture. RAD/Foot min 3 Views IMPRESSION: 1. Soft tissue swelling at the forefoot. No acute osseous abnormality of the left foot. 2. Atherosclerotic intimal vascular calcifications present. 3. Fractures of uncertain age involving the medial malleolus and distal fibula, better seen on additional views of the tibia and fibula obtained today. Electronically Signed: Andrews Hugo MD at 10:58 EDT ,
[2022-04-06 09:52] LABS: Differential Comment SCANNED
[2022-04-06 09:55] LABS: International Normalized Ratio 2.1; Prothrombin Time (Protime)PT. 23.4 SECONDS (11.7-14.9)
[2022-04-06] MEDS: fentaNYL 100 MCG/2 ML Ampul 50 MCG IV (10:10)
--- NOTE | 2022-04-06 11:47 | EX.ED.GENINJ ---
HPI History of Present Illness Chief Complaint: Fall Informant: patient Onset/Context/Timing Onset: Today Mechanism/Context: Fall Current Severity: Mild Maximum Severity: Moderate Narrative Narrative: Patient presents via EMS after a fall. Patient reportedly fell out of bed last evening was not able to get himself up. He yelled for neighbors this morning who heard him and called 911. Patient states he was caught between his bed, the nightstand, and his walker. He is complaining of pain to the left side. He denies headache. It is noted patient is on Coumadin. 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 Longstanding persistent atrial fibrillation Sepsis Traumatic hemothorax (12/30/18) Home Medications atorvastatin 80 mg PO QHS 04/02/16 [History Last Taken 11/24/21 22:00 80 mg] potassium chloride 20 mEq tablet,extended release 20 meq PO DAILY 12/03/18 [History Last Taken 11/25/21 10:00 20 meq] cetirizine 10 mg PO DAILY 12/27/18 [History Last Taken 11/25/21 10:00 10 mg] metoprolol tartrate 50 mg tablet 50 mg PO BID 03/15/19 [History Last Taken 11/25/21 10:00 50 mg] leuprolide (3 month) 22.5 mg (3 month) intramuscular syringe kit 11.25 mg IM [id number] 04/23/20 [History Last Taken 08/26/21] cholecalciferol (vitamin D3) 1,250 mcg (50,000 unit) capsule 1,000 unit PO DAILY cap 10/29/20 [History Last Taken 11/24/21 22:00 1000 units] enzalutamide 160 mg PO DAILY 01/05/21 [History Last Taken 11/24/21 22:00 160 mg] nystatin [Nyamyc] 1 applic TOPICAL BID 12/14/21 [History Last Taken Unknown] guaifenesin [Mucus Relief ER] 600 mg PO BID 12/17/21 [History Last Taken Unknown] acetaminophen 1,000 mg PO Q8 #0 tab 12/30/21 [Rx Last Taken Unknown] alprazolam 0.25 mg PO Q8H PRN 3 Days #9 tab 12/30/21 [Rx Last Taken Unknown] bisacodyl 10 mg PO DAILY PRN PRN #0 tab 12/30/21 [Rx Last Taken Unknown] doxazosin 4 mg PO DAILY #0 tab 12/30/21 [Rx Last Taken Unknown] menthol-zinc oxide [Calmoseptine] 1 applic TOPICAL TID #0 g 12/30/21 [Rx Last Taken Unknown] oxycodone 5 mg PO Q4H PRN PRN 3 Days #18 tab 12/30/21 [Rx Last Taken Unknown] polyethylene glycol 3350 17 g PO DAILY #0 ea 12/30/21 [Rx Last Taken Unknown] sennosides-docusate sodium [Stool Softener-Stimulant Laxat] 2 tab PO BID #0 tab 12/30/21 [Rx Last Taken Unknown] warfarin [Jantoven] 6.5 mg PO DINNER #0 tab 12/30/21 [Rx Last Taken Unknown] hydrocodone-acetaminophen 1 tab PO Q6H PRN 04/06/22 [History Last Taken Unknown] Allergy/AdvReac Type Severity Reaction Status Date / Time amiodarone AdvReac Intermediate It did not Verified 04/06/22 08:38 work, also bad dreams and neuropathy Family History Father , Age 57 Myocardial infarction CAD (coronary artery disease) ETOH abuse Mother , Age 47, of bone cancer Bone cancer Brother , age 45, of AIDS AIDS (acquired immune deficiency syndrome) Surgical History H/O cervical spine surgery (01/2020) H/O coronary artery bypass surgery (11/26/98) History of left heart catheterization (11/26/98) History of left hip hemiarthroplasty History of thoracic spinal fusion (12/30/18) Social History household members: none Smoking Status: Former smoker alcohol intake: never substance use type: does not use ROS ROS ED Constitutional Constitutional ED: Denies chills or fever(s) Eyes Eyes: Denies blurry vision ENT ENT ED: Denies rhinorrhea or sore throat Cardiovascular Cardiovascular: Denies chest pain Respiratory/Chest Respiratory/Chest: Denies cough or dyspnea Gastrointestinal Gastrointestinal: Denies abdominal pain, diarrhea or vomiting Musculoskeletal Musculoskeletal: Reports arthralgias Integumentary Reports Abrasions Neurologic Neurologic: Reports weakness; Denies headache(s) Allergic/Immunologic Allergic/Immunologic ED: Denies urticaria EXAM Physical Exam Const Vital Signs: 04/06/22 08:39 04/06/22 10:12 Temperature 97.9 F Temperature Source Temporal Pulse Rate 86 110 H Respiratory Rate 20 H 16 Blood Pressure 129/70 H 119/94 H Blood Pressure Mean 89 102 Pulse Ox 94 92 Oxygen Delivery Method Room Air Room Air Positive obese Nutritional Appearance: obese HEENT atraumatic Eyes PERRL and EOMs intact bilaterally Neck full ROM Neck Narrative: No C-spine tenderness. Chest Wall inspection of chest normal and palpation of chest normal Resp normal respiratory effort and clear to auscultation bilaterally Cardio regular rhythm Rate: regular rate GI non-tender Palpation: soft Extremity Extremity Narrative: Mild tenderness around the left ankle. Venous skin changes noted to the lower leg with large bullous lesion as well as area of skin breakdown over the anterior humphrey. Surrounding erythema noted. Abrasion over the medial ankle and over the first and second toes. Neuro oriented x3 Sensorium / Orientation: alert MDM MDM MDM Narrative Medical decision making narrative: CT scan of the head obtained along with x-rays of the left femur, left tib-fib, left foot. Chest x-ray ordered. Lab work obtained. Patient given a dose of fentanyl for pain. Lab Data Attestation: I reviewed the patient's lab results. Labs: Laboratory Results - last 24 hr 04/06/22 04/06/22 04/06/22 09:25 09:25 09:25 WBC 5.5 RBC 4.41 L Hgb 12.5 L Hct 38.9 L MCV 88.2 MCH 28.3 MCHC 32.1 RDW Std Deviation 44.7 H RDW Coeff of Dick 13.7 Plt Count 122 L MPV 9.0 Immature Gran % (Auto) 0.700 Neut % (Auto) 88.8 H Lymph % (Auto) 4.0 L Mccone % (Auto) 6.3 Eos % (Auto) 0.0 Baso % (Auto) 0.2 Absolute Neuts (auto) 4.9 Absolute Lymphs (auto) 0.22 L Nucleated RBC % 0 Differential Comment SCANNED PT 23.4 H INR 2.1 Sodium 142 Potassium 3.5 Chloride 108 H Carbon Dioxide 25.0 Anion Gap 9 BUN 22 H Creatinine 1.05 Estim Creat Clear Calc 67.75 Est GFR (MDRD) Af Amer 89 Est GFR (MDRD) Non-Af 73 BUN/Creatinine Ratio 21.0 H Glucose 148 H Calcium 8.6 Radiography Diagnostic Testing: Clinical Impression(s) from Imaging Studies Brain CT 04/06/22 09:03 IMPRESSION: Chronic involutional changes of the brain. The intracranial hemorrhage seen in December 2018 has cleared. No acute intracranial injury. Electronically Signed: Andrews Hugo MD at 10:02 EDT Reading Location ID and State: [facility] / [place] , Service support , Chest X-Ray 04/06/22 09:45 IMPRESSION: 1. No sign of acute thoracic injury. 2. Stable cardiac enlargement. Prior median sternotomy. No CHF. 3. Mild subsegmental atelectasis in the left base. 4. Bilateral metal fixation hardware again seen in the spine T7-T12. Electronically Signed: Andrews Hugo MD at 10:24 EDT Reading Location ID and State: [facility] / [place] , Service support , Femur X-Ray 04/06/22 09:45 IMPRESSION: Prior left total hip arthroplasty. No acute osseous abnormality of the left femur. Electronically Signed: Andrews Hugo MD at 11:04 EDT , Foot X-Ray 04/06/22 09:45 IMPRESSION: 1. Soft tissue swelling at the forefoot. No acute osseous abnormality of the left foot. 2. Atherosclerotic intimal vascular calcifications present. 3. Fractures of uncertain age involving the medial malleolus and distal fibula, better seen on additional views of the tibia and fibula obtained today. Electronically Signed: Andrews Hugo MD at 10:58 EDT , Tibia/Fibula X-Ray 04/06/22 09:45 IMPRESSION: 1. Bimalleolar, possible trimalleolar ankle fracture, age uncertain. 2. Soft tissue swelling. There are rounded soft tissue excrescences also at the posteromedial mid to distal third of the lower leg. 3. Cluster of small surgical clips noted in the posterior medial subcutaneous tissues of the mid to distal third of the lower leg as well. 4. Atherosclerotic intimal calcifications of the tibioperoneal arteries are present. Electronically Signed: Andrews Hugo MD at 11:02 EDT , Treatment and Re-Evaluation Narrative: Per my interpretation chest x-ray shows chronic changes. Left femur x-rays unremarkable. Left tib-fib x-rays appear to show ankle fracture, not significantly displaced. Left foot x-ray shows no acute fracture. Radiology interpretation is reviewed on all images. They do feel there is a bimalleolar, possible trimalleolar ankle fracture, age uncertain. When speaking with the patient he does not know that he is ever had a left ankle fracture. Lab work is reviewed and largely unremarkable. INR is therapeutic at 2.1. With patient having significant erythema and wound to the left lower extremity I will treat him with dose of Ancef. I will speak with podiatry. Plan will be to dress the wounds and placed him in a walking boot to support the ankle. I will speak with hospitalist regarding admission. Discharge Plan Triage Chief Complaint: Fall ED Provider: Jie Brady Dx/Rx/DC Orders Clinical Impression: Fall, Ankle fracture, left, Cellulitis Prescriptions: No Action potassium chloride 20 mEq tablet extended release 20 meq PO DAILY RF: 0 cholecalciferol (vitamin D3) 1,250 mcg (50,000 unit) capsule 1,000 unit PO DAILY RF: 0 metoprolol tartrate 50 mg tablet 50 mg PO BID RF: 0 Lupron Depot (3 month) 22.5 mg syringe kit 11.25 mg IM [id number] RF: 0 atorvastatin 80 MG tablet 80 mg PO QHS RF: 0 cetirizine 10 MG capsule 10 mg PO DAILY RF: 0 enzalutamide 40 MG capsule 160 mg PO DAILY RF: 0 nystatin [Nyamyc] 100,000 unit/gram powder 1 applic topical BID RF: 0 guaifenesin [Mucus Relief ER] 600 mg tablet extended release 12hr 600 mg PO BID RF: 0 polyethylene glycol 3350 17 gram Powder In Packet 17 g PO DAILY Qty: 0 RF: 0 sennosides-docusate sodium [Stool Softener-Stimulant Laxat] 8.6-50 mg Tablet 2 tab PO BID Qty: 0 RF: 0 warfarin [Jantoven] 2.5 mg Tablet 6.5 mg PO DINNER Qty: 0 RF: 0 acetaminophen 500 mg Tablet 1,000 mg PO Q8 Qty: 0 RF: 0 alprazolam 0.25 mg Tablet 0.25 mg PO Q8H PRN (Reason: Anxiety) 3 Days Qty: 9 RF: 0 doxazosin 4 mg Tablet 4 mg PO DAILY Qty: 0 RF: 0 bisacodyl 5 mg Tablet,Delayed Release (Dr/Ec) 10 mg PO DAILY PRN PRN (Reason: Constipation) Qty: 0 RF: 0 oxycodone 5 mg Tablet 5 mg PO Q4H PRN PRN (Reason: Pain Score 4-10) 3 Days Qty: 18 RF: 0 menthol-zinc oxide [Calmoseptine] 0.44-20.6 % Ointment 1 applic topical TID Qty: 0 RF: 0 hydrocodone-acetaminophen 5-325 mg Tablet 1 tab PO Q6H PRN (Reason: Chronic pain) RF: 0 Primary Care Provider: James Pisano Chi Referrals: James Pisano Chi, MD [Primary Care Provider] - Disposition Disposition: Acute Care Hospital [facility]
[2022-04-06] MEDS: Cefazolin 1 GM/50 ML BAG IV (12:08)
--- NOTE | 2022-04-06 12:13 | HP.PCM.HOS_ITS ---
HPI - General General Date of Admission: 04/06/22 HPI Narrative MEENAKSHI NI, is a 76 M with a PMH as outlined who presents via the ED on 04/06/2022 with a complaint of mechanical fall. He apparently fell out of bed the night before admission and couldnt get up on his own. He says he just slid off the bed and fell down. He says this has happened to him in the past. He denied any antecedent dizziness, palpitations, chest pain or syncope. He called out loudly for his neighbors who called 911. Patient is on coumadin. On admission in the ED, vitals were BP of 139/84, PA of 111, RR of 16n and temp was 99.9F. CBC was unremarkable; INR was 2.1. Chemistry was also essentially unremarkable. CT of the brain showed no acute intracranial pathology. Foot xray showed a bimalleolar, possible trimalleolar ankle fracture, age uncertain, with soft tissue swelling. CXR showed no acute cardiopulonary pathology. He is being admitted for debility due to mechanical fall, as well as left medial malleolus and distal fibular fractures, unclear if acute. 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 Longstanding persistent atrial fibrillation Sepsis Traumatic hemothorax (12/30/18) Home Medications atorvastatin 80 mg PO QHS 04/02/16 [History Last Taken 11/24/21 22:00 80 mg] potassium chloride 20 mEq tablet,extended release 20 meq PO DAILY 12/03/18 [History Last Taken 11/25/21 10:00 20 meq] cetirizine 10 mg PO DAILY 12/27/18 [History Last Taken 11/25/21 10:00 10 mg] metoprolol tartrate 50 mg tablet 50 mg PO BID 03/15/19 [History Last Taken 11/25/21 10:00 50 mg] leuprolide (3 month) 22.5 mg (3 month) intramuscular syringe kit 11.25 mg IM [id number] 04/23/20 [History Last Taken 08/26/21] cholecalciferol (vitamin D3) 1,250 mcg (50,000 unit) capsule 1,000 unit PO DAILY cap 10/29/20 [History Last Taken 11/24/21 22:00 1000 units] enzalutamide 160 mg PO DAILY 01/05/21 [History Last Taken 11/24/21 22:00 160 mg] nystatin [Nyamyc] 1 applic TOPICAL BID 12/14/21 [History Last Taken Unknown] guaifenesin [Mucus Relief ER] 600 mg PO BID 12/17/21 [History Last Taken Unknown] acetaminophen 1,000 mg PO Q8 #0 tab 12/30/21 [Rx Last Taken Unknown] alprazolam 0.25 mg PO Q8H PRN 3 Days #9 tab 12/30/21 [Rx Last Taken Unknown] bisacodyl 10 mg PO DAILY PRN PRN #0 tab 12/30/21 [Rx Last Taken Unknown] doxazosin 4 mg PO DAILY #0 tab 12/30/21 [Rx Last Taken Unknown] menthol-zinc oxide [Calmoseptine] 1 applic TOPICAL TID #0 g 12/30/21 [Rx Last Taken Unknown] oxycodone 5 mg PO Q4H PRN PRN 3 Days #18 tab 12/30/21 [Rx Last Taken Unknown] polyethylene glycol 3350 17 g PO DAILY #0 ea 12/30/21 [Rx Last Taken Unknown] sennosides-docusate sodium [Stool Softener-Stimulant Laxat] 2 tab PO BID #0 tab 12/30/21 [Rx Last Taken Unknown] warfarin [Jantoven] 6.5 mg PO DINNER #0 tab 12/30/21 [Rx Last Taken Unknown] hydrocodone-acetaminophen 1 tab PO Q6H PRN 04/06/22 [History Last Taken Unknown] Allergy/AdvReac Type Severity Reaction Status Date / Time amiodarone AdvReac Intermediate It did not Verified 04/06/22 08:38 work, also bad dreams and neuropathy Family History Father , Age 57 Myocardial infarction CAD (coronary artery disease) ETOH abuse Mother , Age 47, of bone cancer Bone cancer Brother , age 45, of AIDS AIDS (acquired immune deficiency syndrome) Surgical History H/O cervical spine surgery (01/2020) H/O coronary artery bypass surgery (11/26/98) History of left heart catheterization (11/26/98) History of left hip hemiarthroplasty History of thoracic spinal fusion (12/30/18) Social History household members: none Smoking Status: Former smoker alcohol intake: never substance use type: does not use ROS Constitutional Constitutional: Reports fatigue, malaise and weakness; Denies anorexia or chills Eyes Eyes: Denies change in vision ENT HEENT: Denies dysphagia or headache(s) Cardiovascular Cardiovascular: Denies chest pain, dyspnea on exertion, edema, lightheadedness, orthopnea, palpitations, paroxysmal nocturnal dyspnea, rapid heart rate or syncope Respiratory/Chest Respiratory/Chest: Reports hemoptysis; Denies cough, dyspnea, shortness of breath at rest, shortness of breath with exertion or wheezing Gastrointestinal Gastrointestinal: Denies abdominal pain, diarrhea, nausea or vomiting Genitourinary Genitourinary: Denies burning urination or dysuria Musculoskeletal Musculoskeletal: Denies back pain Neurologic Neurologic: Denies confusion, dizziness, focal weakness, headache(s) or seizures Psychiatric Psychiatric: Denies anxiety or depression Hematologic/Lymphatic Hematologic/Lymphatic: Denies anemia Allergic/Immunologic Allergic/Immunologic: Denies asthma Vital Signs Vital Signs Vital Signs: 04/06/22 08:39 04/06/22 10:12 04/06/22 12:10 Temperature 97.9 F 99.9 F H Temperature Source Temporal Oral Pulse Rate 86 110 H 111 H Respiratory Rate 20 H 16 16 Blood Pressure 129/70 H 119/94 H 139/84 H Blood Pressure Mean 89 102 102 Pulse Ox 94 92 98 Oxygen Delivery Method Room Air Room Air Nasal Cannula Oxygen Flow Rate (L/min) 2 Weight Weight: 278 lb 9.6 oz Body Mass Index (BMI) 37.8 Physical Exam Const alert and oriented x3 Orientation / Consciousness: lethargic HEENT normocephalic, head/scalp atraumatic, hearing grossly normal bilaterally and moist oral mucous membranes Eyes PERRL, EOMs intact bilaterally and conjunctivae normal Neck no lymphadenopathy, supple and no JVD Resp Resp Narrative: diminished breath sounds bibasally, no wheezes or crackles. On 3L of oxygen by nasal canula Cardio regular rate, S1 normal heart sound and S2 normal heart sound Cardio Narrative: afib; has grade 3 systolic murmur loudest in the aortic region GI normal to inspection, nondistended, normoactive bowel sounds, soft to palpation, non-tender and non-distended Extremity Extremity Narrative: has superficial excoriation and swelling over left elbow due to mechanical fall. Has erythema and blisters on LLE, from foot to humphrey. Has some ruptured blisters on humphrey. Also has blisters on sole of foot; foot Peripheral Pulses: Yes pulses 2+ throughout Skin Skin Narrative: superficial ulceration over left elbow as above under skin Neuro oriented x3 Neuro Narrative: lethargic Sensorium / Orientation: awake and alert Psych Psych Narrative: flat affect Results Lab / Micro Data Result Diagrams: 04/06/22 09:25 04/06/22 09:25 Labs: Laboratory Results - last 24 hr 04/06/22 09:25: WBC 5.5, RBC 4.41 L, Hgb 12.5 L, Hct 38.9 L, MCV 88.2, MCH 28.3, MCHC 32.1, RDW Std Deviation 44.7 H, RDW Coeff of Dick 13.7, Plt Count 122 L, MPV 9.0, Immature Gran % (Auto) 0.700, Neut % (Auto) 88.8 H, Lymph % (Auto) 4.0 L, Burke % (Auto) 6.3, Eos % (Auto) 0.0, Baso % (Auto) 0.2, Absolute Neuts (auto) 4.9, Absolute Lymphs (auto) 0.22 L, Nucleated RBC % 0, Differential Comment SCANNED 04/06/22 09:25: PT 23.4 H, INR 2.1 04/06/22 09:25: Sodium 142, Potassium 3.5, Chloride 108 H, Carbon Dioxide 25.0, Anion Gap 9, BUN 22 H, Creatinine 1.05, Estim Creat Clear Calc 67.75, Est GFR (MDRD) Af Amer 89, Est GFR (MDRD) Non-Af 73, BUN/Creatinine Ratio 21.0 H, Glucose 148 H, Calcium 8.[address] 04/06/22 09:03 IMPRESSION: Chronic involutional changes of the brain. The intracranial hemorrhage seen in December 2018 has cleared. No acute intracranial injury. Electronically Signed: Andrews Hugo MD at 10:02 EDT , Chest X-Ray 04/06/22 09:45 IMPRESSION: 1. No sign of acute thoracic injury. 2. Stable cardiac enlargement. Prior median sternotomy. No CHF. 3. Mild subsegmental atelectasis in the left base. 4. Bilateral metal fixation hardware again seen in the spine T7-T12. Electronically Signed: Andrews Hugo MD at 10:24 EDT , Femur X-Ray 04/06/22 09:45 IMPRESSION: Prior left total hip arthroplasty. No acute osseous abnormality of the left femur. Electronically Signed: Andrews Hugo MD at 11:04 EDT , Foot X-Ray 04/06/22 09:45 IMPRESSION: 1. Soft tissue swelling at the forefoot. No acute osseous abnormality of the left foot. 2. Atherosclerotic intimal vascular calcifications present. 3. Fractures of uncertain age involving the medial malleolus and distal fibula, better seen on additional views of the tibia and fibula obtained today. Electronically Signed: Andrews Hugo MD at 10:58 EDT , Tibia/Fibula X-Ray 04/06/22 09:45 IMPRESSION: 1. Bimalleolar, possible trimalleolar ankle fracture, age uncertain. 2. Soft tissue swelling. There are rounded soft tissue excrescences also at the posteromedial mid to distal third of the lower leg. 3. Cluster of small surgical clips noted in the posterior medial subcutaneous tissues of the mid to distal third of the lower leg as well. 4. Atherosclerotic intimal calcifications of the tibioperoneal arteries are present. Electronically Signed: Andrews Hugo MD at 11:02 EDT Reading Location ID and State: [facility] / [place] , Service support , Assessment & Plan Assessment/Plan (1) Fall: (2) Ankle fracture, left: PLAN: #Debility due to mechanical fall * fell last night at home * PT/OT consult * fall precautions #Left medial malleolar and distal fibular fracture * unclear if acute or chonic. * podiatry consulted. * PT/OT consult * walking boot placed in ED. * fall precautions * tylenol, oxycodone and IV morphine prn for pain. * # Cellulitis of the LLE * LLE erythematous, warm to touch, mildly tender. Erythema extends from foot to mid humphrey. Has associatec bullae formation over humphrey and sole of foot. One of the bullae has ruptured * received a dose of IV cefazolin in hte ED * put on IV vancomycin and zosyn. get wound cultures * blood cultures pending #Atrial fibrillation * on metoprolol. On coumadin; INR is 2.1 * hold coumadin due to mechanical fall. and possibly needing debridement by podiatry * will have to discuss with patient about stopping coumadin or continuing based on risk of falls * #History of prostate cancer; on enzalutamide. #Hyperlipidemia: on statin #Hypertension: on doxazosin and metoprolol #RAVIN * on CPAP qhs. Currently on 3L of oxygen by nasal canula * get ABG as patient looks a bit lethargic, to make sure he is not retaining CO2. * DVT prophylaxis: not indicated as he is on coumadin Code status: DNRCCA no intubation * Patient counseled extensively about different types of CODE STATUS including full code, DNR CCA and DNR CCA. Patient elects to be DNRCCA no intubation * Total ktio-mi-qmsf time 16 minutes. Charges/Coding Visit Charges Inpatient E&M: 33927 Init Hosp L3 Procedures Hospitalists Procedures: [id number] Advncd Care Plan 30 Min
[2022-04-06] MEDS: 0.9% Normal Saline 1,000 ML 150 ML IV ×2 (12:38→22:07)
--- NOTE | 2022-04-06 12:49 | NURSING ---
317 KORAM FALL, ANKLE FX, CELLULITIS
[2022-04-06] MEDS: oxyCODONE 5 MG Tablet PO (13:56)
[2022-04-06 15:41] LABS: Allen Test Positive; Base Excess 2 mmol/L (-2 to +2); Bicarbonate 25.6 mmol/L (22-26); Blood Gas Specimen Type ART; O2 Delivery Device Cannula; PO2 100 mmHG (75-100); SITE L Radial; SO2 98 % (95-99); Total Carbon Dioxide 27 mmol/L; pCO2 34.7 mmHg (35-45); pH 7.48 (7.35-7.45)
--- NOTE | 2022-04-06 16:30 | PCM.CONS.GEN ---
Assessment & Plan Assessment/Plan (1) Cellulitis of left lower limb: (2) Onycholysis: (3) Blister (nonthermal), left lower leg, initial encounter: (4) Ankle fracture, left: (5) Venous insufficiency (chronic) (peripheral): PLAN: Evaluation performed. Reviewed left foot, ankle and tib/fib xrays - there is evidence of bimalloelus ankle fracture - age uncertain - will order CT scan for further evaluation. Blisters have been drained of serous fluid - and have been cultures - results pending. Patient on IV Zosyn at this time. Wound care: Adaptic, 4x4 gauze, abd pads, kerlix and anna dressing - change daily. Keep left foot elevated, no weightbaring left foot. CAM boot to keep left foot/ankle protected. Podiatry will continue to follow, thank you for consult. HPI Consult Data Date of Consult: 04/06/22 HPI Narrative Reason for Consultation: Left ankle injury, wounds and infection HPI Narrative: MEENAKSHI NI, is a 76 M who presented to the ER today for left foot/ankle pain with redness, swelling and wounds. He relates he frequently falls, and got stuck between bed and his walker, he relates he is not sure when this happened most recently. He has been admitted for further management and workup. Podiatry has been consulted. Patient is on IV Zosyn. Left tib/fib xrays and left foot xrays have been obtained - possible bimalleolus/trimalleolus ankle fracture of uncetrain age is present. Labs obtained and WBC normal. Patient is resting in bed. Patient temp 101.4F, no complaints of chills, nausea or vomiting. Patient is on anticoagulation - Coumadin. [facility] Medical History Atherosclerotic heart disease of [place] coronary artery without angina pectoris Closed fracture of left hip Closed left humeral fracture Essential hypertension Former tobacco use Fracture of ninth thoracic vertebra (12/27/18) History of Clostridium difficile infection (01/09/19) History of subdural hematoma (post traumatic) (12/27/18) Hyperlipidemia group home (current) use of anticoagulants Longstanding persistent atrial fibrillation Sepsis Traumatic hemothorax (12/30/18) Home Medications atorvastatin 80 mg PO QHS 04/02/16 [History Last Taken 11/24/21 22:00 80 mg] potassium chloride 20 mEq tablet,extended release 20 meq PO DAILY 12/03/18 [History Last Taken 11/25/21 10:00 20 meq] cetirizine 10 mg PO DAILY 12/27/18 [History Last Taken 11/25/21 10:00 10 mg] metoprolol tartrate 50 mg tablet 50 mg PO BID 03/15/19 [History Last Taken 11/25/21 10:00 50 mg] leuprolide (3 month) 22.5 mg (3 month) intramuscular syringe kit 11.25 mg IM [id number] 04/23/20 [History Last Taken 08/26/21] cholecalciferol (vitamin D3) 1,250 mcg (50,000 unit) capsule 1,000 unit PO DAILY cap 10/29/20 [History Last Taken 11/24/21 22:00 1000 units] enzalutamide 160 mg PO DAILY 01/05/21 [History Last Taken 11/24/21 22:00 160 mg] nystatin [Nyamyc] 1 applic TOPICAL BID 12/14/21 [History Last Taken Unknown] guaifenesin [Mucus Relief ER] 600 mg PO BID 12/17/21 [History Last Taken Unknown] acetaminophen 1,000 mg PO Q8 #0 tab 12/30/21 [Rx Last Taken Unknown] alprazolam 0.25 mg PO Q8H PRN 3 Days #9 tab 12/30/21 [Rx Last Taken Unknown] bisacodyl 10 mg PO DAILY PRN PRN #0 tab 12/30/21 [Rx Last Taken Unknown] doxazosin 4 mg PO DAILY #0 tab 12/30/21 [Rx Last Taken Unknown] menthol-zinc oxide [Calmoseptine] 1 applic TOPICAL TID #0 g 12/30/21 [Rx Last Taken Unknown] oxycodone 5 mg PO Q4H PRN PRN 3 Days #18 tab 12/30/21 [Rx Last Taken Unknown] polyethylene glycol 3350 17 g PO DAILY #0 ea 12/30/21 [Rx Last Taken Unknown] sennosides-docusate sodium [Stool Softener-Stimulant Laxat] 2 tab PO BID #0 tab 12/30/21 [Rx Last Taken Unknown] warfarin [Jantoven] 6.5 mg PO DINNER #0 tab 12/30/21 [Rx Last Taken Unknown] hydrocodone-acetaminophen 1 tab PO Q6H PRN 04/06/22 [History Last Taken Unknown] Allergy/AdvReac Type Severity Reaction Status Date / Time amiodarone AdvReac Intermediate It did not Verified 04/06/22 08:38 work, also bad dreams and neuropathy Family History Father , Age 57 Myocardial infarction CAD (coronary artery disease) ETOH abuse Mother , Age 47, of bone cancer Bone cancer Brother , age 45, of AIDS AIDS (acquired immune deficiency syndrome) Surgical History H/O cervical spine surgery (01/2020) H/O coronary artery bypass surgery (11/26/98) History of left heart catheterization (11/26/98) History of left hip hemiarthroplasty History of thoracic spinal fusion (12/30/18) Social History household members: none Smoking Status: Former smoker alcohol intake: never substance use type: does not use ROS Constitutional Constitutional: Reports fever(s); Denies chills Gastrointestinal Gastrointestinal: Denies nausea or vomiting Physical Exam Const alert and no apparent distress Extremity Extremity Narrative: Left foot/ankle/leg: there are multiple bulla to the leg and foot - they are filled with serous drainage, they are down to dermal layer, there are no deep wounds, there is diffuse erythema and edema to the left foot/ankle and leg with warmth present, the left toe 2nd toenail is completely lysed with wound to nail bed - no laceration or deep involvement, there is no maloder, no visible abscess, no fluctuance, no crepitus, no necrosis present, there is no evidence of acute ischemia present, there is no POP or pain on rOM to the foot or ankle, muscle strength is intact, no gross instability present, no pain to the ankle, no pain to the lateral malleolus, medial malleolus or posterior malloelus. Chronic venous insufficiency skin changes bilateral lower extremity. Right foot/ankle/leg with no open lesions or evidence of active infection. CFT < 2 seconds to all toes bilateral. No calf pain bilateral. Sensation does appear to be diminished bilateral foot. Lab / Micro Data Result Diagrams: 04/06/22 09:25 04/06/22 09:25 Labs: Laboratory Results - last 24 hr 04/06/22 09:25: WBC 5.5, RBC 4.41 L, Hgb 12.5 L, Hct 38.9 L, MCV 88.2, MCH 28.3, MCHC 32.1, RDW Std Deviation 44.7 H, RDW Coeff of Dick 13.7, Plt Count 122 L, MPV 9.0, Immature Gran % (Auto) 0.700, Neut % (Auto) 88.8 H, Lymph % (Auto) 4.0 L, [place] % (Auto) 6.3, Eos % (Auto) 0.0, Baso % (Auto) 0.2, Absolute Neuts (auto) 4.9, Absolute Lymphs (auto) 0.22 L, Nucleated RBC % 0, Differential Comment SCANNED 04/06/22 09:25: PT 23.4 H, INR 2.1 04/06/22 09:25: Sodium 142, Potassium 3.5, Chloride 108 H, Carbon Dioxide 25.0, Anion Gap 9, BUN 22 H, Creatinine 1.05, Estim Creat Clear Calc 67.75, Est GFR (MDRD) Af Amer 89, Est GFR (MDRD) Non-Af 73, BUN/Creatinine Ratio 21.0 H, Glucose 148 H, Calcium 8.6 ABG Data ABG results: ABG 04/06/22 15:34 Specimen Type ART Sample Site L Radial pH 7.48 H Bicarbonate Actual 25.6 Total CO2 27 Base Excess 2 O2 Saturation 98 ABG pCO2 34.7 L ABG pO2 100 Tarik Test Positive O2 Delivery Device Cannula Liter Flow 3.[address] 04/06/22 09:03 IMPRESSION: Chronic involutional changes of the brain. The intracranial hemorrhage seen in December 2018 has cleared. No acute intracranial injury. Electronically Signed: Andrews Hugo MD at 10:02 EDT , Chest X-Ray 04/06/22 09:45 IMPRESSION: 1. No sign of acute thoracic injury. 2. Stable cardiac enlargement. Prior median sternotomy. No CHF. 3. Mild subsegmental atelectasis in the left base. 4. Bilateral metal fixation hardware again seen in the spine T7-T12. Electronically Signed: Andrews Hugo MD at 10:24 EDT Reading Location ID and State: [place] , Service support , Femur X-Ray 04/06/22 09:45 IMPRESSION: Prior left total hip arthroplasty. No acute osseous abnormality of the left femur. Electronically Signed: Andrews Hugo MD at 11:04 EDT Reading Location ID and State: [id number] , Service support , Foot X-Ray 04/06/22 09:45 IMPRESSION: 1. Soft tissue swelling at the forefoot. No acute osseous abnormality of the left foot. 2. Atherosclerotic intimal vascular calcifications present. 3. Fractures of uncertain age involving the medial malleolus and distal fibula, better seen on additional views of the tibia and fibula obtained today. Electronically Signed: Andrews Hugo MD at 10:58 EDT Reading Location ID and State: [facility] , Service support , Tibia/Fibula X-Ray 04/06/22 09:45 IMPRESSION: 1. Bimalleolar, possible trimalleolar ankle fracture, age uncertain. 2. Soft tissue swelling. There are rounded soft tissue excrescences also at the posteromedial mid to distal third of the lower leg. 3. Cluster of small surgical clips noted in the posterior medial subcutaneous tissues of the mid to distal third of the lower leg as well. 4. Atherosclerotic intimal calcifications of the tibioperoneal arteries are present. Electronically Signed: Andrews Hugo MD at 11:02 EDT Reading Location ID and State: [id number] / [facility] , Service support ,
--- NOTE | 2022-04-06 16:40 | RAD_ITS ---
INDICATION: ankle fracture EXAMINATION/TECHNIQUE: X-RAY - LEFT XR Ankle Min 3 Views 3 VIEWS COMPARISON: 04/06/2022 left tibia and fibula x-rays FINDINGS: SOFT TISSUES: There is soft tissue swelling medial and lateral ankle. There is no visible joint effusion. Peripheral vascular calcifications are visible. BONES/JOINTS: There is a transverse fracture medial malleolus at the level of the talar dome. There is a oblique fracture distal fibula extending from the level of the tibial plafond to approximately 4 cm cephalad. There is a probable fracture involving the posterior distal tibia. No fractures show significant displacement or malalignment. Preservation of the joint space and no degenerative bony proliferative changes. No sclerotic or destructive changes observed. RAD/Ankle min 3 Views IMPRESSION: Medial and posterior malleolus and distal fibular fractures as above. Peripheral atherosclerosis. Electronically Signed: Devon White DO at 20:08 EDT ,
--- NOTE | 2022-04-06 17:12 | CT_ITS ---
CT left ankle: TECHNIQUE: Standard axial imaging with sagittal and coronal reconstructions. INDICATIONS: Fracture. FINDINGS: There is a transverse nondisplaced fracture through the junction of the distal fibular metaphysis and epiphysis. There is a fracture of the distal tibia anterolaterally adjacent to the distal fibula. This fracture fragment measures 1.3 cm AP by 0.7 cm transverse. There is a transverse fracture of the medial malleolus. Fracture fragment at this site measures 1.8 cm transverse by 1.5 cm craniocaudal. There is a posterior malleolar fracture which is vertically oriented. There is underlying osteopenia. 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 The talus and calcaneus appear intact without evidence of fracture. The navicula cuboid and cuneiforms appear intact although there is moderate osteoarthritis throughout the tarsal bones. The proximal metatarsals are intact. There is diffuse soft tissue swelling and distal leg extending into the hind and midfoot. CT/Extremity Lower without Contra IMPRESSION: Transverse fracture of the distal fibula. Fracture of the medial malleolus, posterior malleolus and third fracture site of the distal tibia at the anterior lateral tibial epiphysis extending to the ankle mortise joint. Diffuse subcutaneous edema. Osteopenia and osteoarthritic changes as above. Electronically Signed: Feliciano Bernard MD, ASHLI at 19:12 EDT ,
[2022-04-06] MEDS: HYDROcodone Bitartrate/Apap 5/325 Tablet PO (18:24)
[2022-04-06 18:49] LABS: M R Staph aureus DNA By PCR POSITIVE (Negative); Probe Check PASS; Staph aureus DNA By PCR POSITIVE (Negative)
--- NOTE | 2022-04-06 19:00 | PCM.RX.CS ---
Consult Pharmacy has been consulted to manage selected antiobiotic: Vancomycin Type of Consult: New start Suspected Infection: Skin/Soft tissue Labs: Sodium 142 mmol/L (136-145) 04/06/22 09:25 Potassium 3.5 mmol/L (3.5-5.1) 04/06/22 09:25 Chloride 108 mmol/L (98-107) H 04/06/22 09:25 Carbon Dioxide 25.0 mmol/L (21.0-32.0) 04/06/22 09:25 Anion Gap 9 (5-15) 04/06/22 09:25 BUN 22 mg/dL (7-18) H 04/06/22 09:25 Creatinine 1.05 mg/dL (0.70-1.30) 04/06/22 09:25 Est GFR (MDRD) Af Amer 89 mL/min (>60) 04/06/22 09:25 Est GFR (MDRD) Non-Af 73 mL/min (>60) 04/06/22 09:25 BUN/Creatinine Ratio 21.0 RATIO (10-20) H 04/06/22 09:25 Glucose 148 mg/dL (74-106) H 04/06/22 09:25 Goal Trough: 15-20 mcg/mL Pharmacy Plan for Drug Dosing: NEW START IV VANCOMYCIN Consulting Physician: Dr. Brooke Indication: Cellulitis Goal Trough: 15-20 SrCr: 1.05 CrCl: Comments: pt received a 2000mg x1 loading dose on 04/06/22 at 1818 Vancomcyin Dose: based on pts weight and renal function, recommend an initial dose of 1250mg q12h starting 04/07/22 at 0600. trough before the 4th total dose Pending Level: 04/08/22 at 0530 Pharmacy Service will continue to monitor and adjust dosing as required. Follow-Up Labs: Trough Vancomycin - 04/08/22 at 0530
[2022-04-06] MEDS: Atorvastatin Calcium 80 MG Tablet PO (21:01)
[2022-04-06] MEDS: Metoprolol Tartrate 50 MG Tablet PO (21:01)
[2022-04-06] MEDS: Nystatin Powder 15gm Bottle 1 APPLIC TOPICAL (21:02)
[2022-04-06] MEDS: guaiFENesin 600 MG Tablet PO (21:02)
[2022-04-06] MEDS: Senna/Docusate Sodium 1 Tablet 2 TABLET PO (21:03)
[2022-04-06] MEDS: 0.9% Saline Lock 10 ML Syringe IV (22:50)
[2022-04-06] MEDS: Morphine 2 MG/ML Syringe IV (22:50)
[2022-04-07] VITALS (15 sets, daily range): BP systolic 113–141; BP diastolic 61–83; PULSE 84–153; RESP 18; TEMP 36.6–36.9; O2SAT 94–99
[2022-04-07] MEDS: HYDROcodone Bitartrate/Apap 5/325 Tablet PO ×3 (01:10→16:36)
[2022-04-07] MEDS: Morphine 2 MG/ML Syringe IV ×3 (02:39→14:05)
[2022-04-07] MEDS: 0.9% Normal Saline 1,000 ML 150 ML IV (05:03)
[2022-04-07 06:15] LABS: Absolute Lymphocyte Count 0.95 X10^3/uL (0.83-4.51); Absolute Neutrophil Count 5.5 X10^3/uL (2.0-7.7); Basophil# 0.01 X10^3/uL; Basophil% 0.1 % (0-1); Eosinophil# 0.01 X10^3/uL; Eosinophils% 0.1 % (0-5); Hematocrit 33.1 % (40-54); Hemoglobin 10.9 g/dL (13.0-16.5); Lymphocyte # 0.95 X10^3/ul (0.83-4.51); Lymphocyte % 13.1 % (19-41); Mean Corp Hgb Conc 32.9 g/dL (32-36); Mean Corpuscular Hgb 29.1 pg (27.0-32.0); Mean Corpuscular Volume 88.3 fL (80-94); Mean Platelet Vol. 9.6 fl (6.2-12.0); Monocyte# 0.76 X10^3/uL; Monocyte% 10.5 % (0-10); NRBC Flagged by Analyzer 0 % (0-5); Neutrophil # 5.51 X10^3/uL (2.7-7.7); Neutrophil % 75.8 % (47-70); Platelet Count 109 K/mm3 (150-450); RBC Distribution Width CV 14.3 % (11.6-14.6); RBC Distribution Width SD 46.2 fl (35.1-43.9); Red Blood Count 3.75 M/mm3 (4.6-6.2); White Blood Count 7.3 K/mm3 (4.4-11.0)
[2022-04-07 06:37] LABS: Anion Gap 6 (5-15); BUN 22 mg/dL (7-18); BUN/Creat Ratio 29.2 RATIO (10-20); Calcium,Total 7.2 mg/dL (8.5-10.1); Chloride 110 mmol/L (98-107); Creatinine, Serum 0.75 mg/dL (0.70-1.30); EST Glomerular Filtration Rate 107 mL/min (>60); Est Glom Filt Rate - Afr Amer 130 mL/min (>60); Estimated Creatinine Clearance 71.13 ml/min; Glucose 118 mg/dL (74-106); Potassium 3.1 mmol/L (3.5-5.1); Sodium Level 142 mmol/L (136-145)
[2022-04-07 07:40] LABS: Squamous Epithelial Cells - UA 0 SEEN /hpf (0-5)
[2022-04-07 07:43] LABS: Color, Urine Yellow (Yellow); Glucose, Dipstick Normal (Normal); Ketone-Dipstick 5 mg/dl (Negative); Leukocyte Esterase-Dipstick Negative /ul (Negative); Nitrite-Dipstick Negative (Negative); Occult Blood-Urine 250 /ul (Negative); Protein-Dipstick 30 mg/dl (Negative); Urine Bilirubin Dipstick Negative (Negative); Urine Clarity Clear (Clear); Urine Urobilinogen Normal (Normal)
[2022-04-07 07:50] LABS: Bacteria 2+ /hpf (None Seen); Mucous, Urine 1+ /hpf (<or=2+); Red Blood Cells-Urine 0-5 SEEN /hpf (0-5); White Blood Cells 0-5 SEEN /hpf (0-5)
[2022-04-07] MEDS: Metoprolol Tartrate 50 MG Tablet PO ×2 (09:02→17:47)
[2022-04-07] MEDS: Polyethylene Glycol 3350 17 GM PACKET PO (09:02)
[2022-04-07] MEDS: Loratadine 10 MG Tablet PO (09:02)
[2022-04-07] MEDS: Potassium Chloride Oral Tablet 20 MEQ 40 MEQ PO (09:02)
[2022-04-07] MEDS: Doxazosin 4 MG Tablet PO (09:02)
[2022-04-07] MEDS: Cholecalciferol (VIT D3) 25 MCG TABLET (1,000 UNITS) PO (09:02)
[2022-04-07] MEDS: Nystatin Powder 15gm Bottle 1 APPLIC TOPICAL ×2 (09:03→22:18)
[2022-04-07] MEDS: Potassium Chloride Oral Tablet 20 MEQ PO (09:03)
[2022-04-07] MEDS: Senna/Docusate Sodium 1 Tablet 2 TABLET PO (09:03)
[2022-04-07] MEDS: guaiFENesin 600 MG Tablet PO ×2 (09:03→22:17)
--- NOTE | 2022-04-07 10:05 | PN_ITS ---
Subjective Subjective Patient was seen this morning for follow up on left foot/kanu/leg. No fever, chills, nausea or vomiting. He relates there is some pain, he just took some [place]. Objective Data Objective Data Vital Signs: Vital Signs Temp Pulse Resp BP Pulse Ox 98.3 F 90 18 141/69 H 99 04/07/22 08:52 04/07/22 09:02 04/07/22 08:52 04/07/22 08:52 04/07/22 08:52 Oxygen Flow Rate (L/min) 3 Oxygen Delivery Method Nasal Cannula Weight: 129.5 kg Body Mass Index (BMI) 38.7 Intake & Output: Intake and Output for Last 24 Hours 04/05/22 04/06/22 04/07/22 23:59 23:59 23:59 Intake Total 1640 / 1640 1355 / 1355 Balance 1640 / 1640 1355 / 1355 Lab / Micro Data Result Diagrams: 04/07/22 05:50 04/07/22 05:50 Labs: Laboratory Results - last 24 hr 04/06/22 15:45: S.aureus Protein A PCR POSITIVE H, MRSA (PCR) POSITIVE H 04/07/22 05:50: WBC 7.3, RBC 3.75 L, Hgb 10.9 L, Hct 33.1 L, MCV 88.3, MCH 29.1, MCHC 32.9, RDW Std Deviation 46.2 H, RDW Coeff of Dick 14.3, Plt Count 109 L, MPV 9.6, Immature Gran % (Auto) 0.400, Neut % (Auto) 75.8 H, Lymph % (Auto) 13.1 L, [place] % (Auto) 10.5 H, Eos % (Auto) 0.1, Baso % (Auto) 0.1, Absolute Neuts (auto) 5.5, Absolute Lymphs (auto) 0.95, Nucleated RBC % 0 04/07/22 05:50: Sodium 142, Potassium 3.1 L, Chloride 110 H, Carbon Dioxide 26.0, Anion Gap 6, BUN 22 H, Creatinine 0.75, Estim Creat Clear Calc 71.13, Est GFR (MDRD) Af Amer 130, Est GFR (MDRD) Non-Af 107, BUN/Creatinine Ratio 29.2 H, Glucose 118 H, Calcium 7.2 L 04/07/22 07:25: Urine Color Yellow, Urine Clarity Clear, Urine pH 6.0, Ur Specific [place] 1.020, Urine Protein 30 H, Urine Glucose (UA) Normal, Urine Ketones 5 H, Urine Occult Blood 250 H, Urine Nitrite Negative, Urine Bilirubin Negative, Urine Urobilinogen Normal, Ur Leukocyte Esterase Negative, Urine RBC 0-5 SEEN, Urine WBC 0-5 SEEN, Ur Squamous Epith Cells 0 SEEN, Urine Bacteria 2+, Urine Mucus 1+ ABG Data ABG results: ABG 04/06/22 15:34 Specimen Type ART Sample Site L Radial pH 7.48 H Bicarbonate Actual 25.6 Total CO2 27 Base Excess 2 O2 Saturation 98 ABG pCO2 34.7 L ABG pO2 100 Tarik Test Positive O2 Delivery Device Cannula Liter Flow 3.0 Radiography Diagnostic Testing: Radiology Impression Chest X-Ray 04/06/22 09:45 IMPRESSION: 1. No sign of acute thoracic injury. 2. Stable cardiac enlargement. Prior median sternotomy. No CHF. 3. Mild subsegmental atelectasis in the left base. 4. Bilateral metal fixation hardware again seen in the spine T7-T12. Electronically Signed: Andrews Hugo MD at 10:24 EDT , Femur X-Ray 04/06/22 09:45 IMPRESSION: Prior left total hip arthroplasty. No acute osseous abnormality of the left femur. Electronically Signed: Andrews Hugo MD at 11:04 EDT , Foot X-Ray 04/06/22 09:45 IMPRESSION: 1. Soft tissue swelling at the forefoot. No acute osseous abnormality of the left foot. 2. Atherosclerotic intimal vascular calcifications present. 3. Fractures of uncertain age involving the medial malleolus and distal fibula, better seen on additional views of the tibia and fibula obtained today. Electronically Signed: Andrews Hugo MD at 10:58 EDT , Tibia/Fibula X-Ray 04/06/22 09:45 IMPRESSION: 1. Bimalleolar, possible trimalleolar ankle fracture, age uncertain. 2. Soft tissue swelling. There are rounded soft tissue excrescences also at the posteromedial mid to distal third of the lower leg. 3. Cluster of small surgical clips noted in the posterior medial subcutaneous tissues of the mid to distal third of the lower leg as well. 4. Atherosclerotic intimal calcifications of the tibioperoneal arteries are present. Electronically Signed: Andrews Hugo MD at 11:02 EDT , Ankle X-Ray 04/06/22 16:40 IMPRESSION: Medial and posterior malleolus and distal fibular fractures as above. Peripheral atherosclerosis. Electronically Signed: Devon White DO at 20:08 EDT , Lower Extremity CT 04/06/22 17:12 IMPRESSION: Transverse fracture of the distal fibula. Fracture of the medial malleolus, posterior malleolus and third fracture site of the distal tibia at the anterior lateral tibial epiphysis extending to the ankle mortise joint. Diffuse subcutaneous edema. Osteopenia and osteoarthritic changes as above. Electronically Signed: Feliciano Bernard MD, ASHLI at 19:12 EDT , Physical Exam Const alert and no apparent distress Extremity Extremity Narrative: Left foot/ankle/leg: drained bulla to the leg and foot- they are down to dermal layer, there are no deep wounds, there is diffuse erythema and edema to the left foot/ankle and leg with warmth present - but much improved today, wound left 2nd toenail bed is healthy and viable - no laceration or deep involvement, there is no maloder, no visible abscess, no fluctuance, no crepitus, no necrosis present, there is no evidence of acute ischemia present, no significant pain to the ankle, muscle strength is intact, no gross instability present, alignment to ankle maintained, no pain to the lateral malleolus, medial malleolus or posterior malleolus. Chronic venous insufficiency skin changes bilateral lower extremity. Right foot/ankle/leg with no open lesions or evidence of active infection. CFT < 2 seconds to all toes bilateral. No calf pain bilateral. Sensation does appear to be diminished bilateral foot. Assessment & Plan Assessment/Plan (1) Cellulitis of left lower limb: (2) Onycholysis: (3) Blister (nonthermal), left lower leg, initial encounter: (4) Ankle fracture, left: (5) Venous insufficiency (chronic) (peripheral): PLAN: Re-evaluation performed. Reviewed left foot, ankle and tib/fib xrays, as well as CT scan - discussed results with patient. Ankle alignment maintained and no gross instability to the foot or ankle. Will treat nonsurgically. Keep left foot elevated, no weightbearing left foot. CAM boot to keep left foot/ankle protected. Blisters have been drained of serous fluid - and have been cultured - MRSA on PRC - final results pending. Patient on IV Vancomycin and Zosyn at this time. Wound care: Adaptic, 4x4 gauze, abd pads, kerlix and anna dressing - change d aily. Podiatry will continue to follow.
[2022-04-07] MEDS: 0.9% Saline Lock 10 ML Syringe IV (10:53)
--- NOTE | 2022-04-07 11:07 | PN.HOSP_ITS ---
Subjective Subjective Patient seen and examined. He had no active complaints and had an uneventful night. He is feeling better. Review of systems is otherwise negative. He has remained hemodynamically stable. Objective Data Objective Data Vital Signs: Vital Signs Temp Pulse Resp BP Pulse Ox 98.3 F 90 18 141/69 H 99 04/07/22 08:52 04/07/22 09:02 04/07/22 08:52 04/07/22 08:52 04/07/22 08:52 Oxygen Flow Rate (L/min) 3 Oxygen Delivery Method Nasal Cannula Weight: 285 lb 7.978 oz Body Mass Index (BMI) 38.7 Intake & Output: Intake and Output for Last 24 Hours 04/05/22 04/06/22 04/07/22 23:59 23:59 23:59 Intake Total 1640 / 1640 1405 / 1405 Balance 1640 / 1640 1405 / 1405 Lab / Micro Data Result Diagrams: 04/07/22 05:50 04/07/22 05:50 Labs: Laboratory Results - last 24 hr 04/06/22 15:45: S.aureus Protein A PCR POSITIVE H, MRSA (PCR) POSITIVE H 04/07/22 05:50: WBC 7.3, RBC 3.75 L, Hgb 10.9 L, Hct 33.1 L, MCV 88.3, MCH 29.1, MCHC 32.9, RDW Std Deviation 46.2 H, RDW Coeff of Dick 14.3, Plt Count 109 L, MPV 9.6, Immature Gran % (Auto) 0.400, Neut % (Auto) 75.8 H, Lymph % (Auto) 13.1 L, [place] % (Auto) 10.5 H, Eos % (Auto) 0.1, Baso % (Auto) 0.1, Absolute Neuts (auto) 5.5, Absolute Lymphs (auto) 0.95, Nucleated RBC % 0 04/07/22 05:50: Sodium 142, Potassium 3.1 L, Chloride 110 H, Carbon Dioxide 26.0, Anion Gap 6, BUN 22 H, Creatinine 0.75, Estim Creat Clear Calc 71.13, Est GFR (MDRD) Af Amer 130, Est GFR (MDRD) Non-Af 107, BUN/Creatinine Ratio 29.2 H, Glucose 118 H, Calcium 7.2 L 04/07/22 07:25: Urine Color Yellow, Urine Clarity Clear, Urine pH 6.0, Ur Specific [place] 1.020, Urine Protein 30 H, Urine Glucose (UA) Normal, Urine Ketones 5 H, Urine Occult Blood 250 H, Urine Nitrite Negative, Urine Bilirubin Negative, Urine Urobilinogen Normal, Ur Leukocyte Esterase Negative, Urine RBC 0-5 SEEN, Urine WBC 0-5 SEEN, Ur Squamous Epith Cells 0 SEEN, Urine Bacteria 2+, Urine Mucus 1+ Micro: Microbiology 04/06/22 Unknown Wound - Leg, Left Wound Culture - Preliminary Staphylococcus aureus Gram positive organism ABG Data ABG results: ABG 04/06/22 15:34 Specimen Type ART Sample Site L Radial pH 7.48 H Bicarbonate Actual 25.6 Total CO2 27 Base Excess 2 O2 Saturation 98 ABG pCO2 34.7 L ABG pO2 100 Tarik Test Positive O2 Delivery Device Cannula Liter Flow 3.0 Radiography Diagnostic Testing: Radiology Impression Ankle X-Ray 04/06/22 16:40 IMPRESSION: Medial and posterior malleolus and distal fibular fractures as above. Peripheral atherosclerosis. Electronically Signed: Devon White DO at 20:08 EDT , Lower Extremity CT 04/06/22 17:12 IMPRESSION: Transverse fracture of the distal fibula. Fracture of the medial malleolus, posterior malleolus and third fracture site of the distal tibia at the anterior lateral tibial epiphysis extending to the ankle mortise joint. Diffuse subcutaneous edema. Osteopenia and osteoarthritic changes as above. Electronically Signed: Feliciano Bernard MD, ASHLI at 19:12 EDT , Physical Exam Const alert, oriented x3 and no apparent distress Exam Limitations: no limitations HEENT normocephalic, head/scalp atraumatic, hearing grossly normal bilaterally and moist oral mucous membranes Head and Scalp: normocephalic Eyes PERRL, EOMs intact bilaterally and conjunctivae normal Neck no lymphadenopathy, supple and no JVD Resp Resp Narrative: diminished breath sounds bibasally, no wheezes or crackles. On 3L of oxygen by nasal canula Cardio regular rate, S1 normal heart sound and S2 normal heart sound Cardio Narrative: afib; has grade 3 systolic murmur loudest in the aortic region GI normal to inspection, nondistended, normoactive bowel sounds, soft to palpation, non-tender and non-distended Extremity normal to inspection, full ROM and no clubbing, cyanosis or edema Extremity Narrative: LLE wrapped in bandage Peripheral Pulses: Yes pulses 2+ throughout Skin Skin Narrative: superficial ulceration over left elbow as above under skin Neuro oriented x3 Neuro Narrative: lethargic Sensorium / Orientation: awake and alert Psych affect normal Assessment & Plan Assessment/Plan (1) Fall: (2) Ankle fracture, left: PLAN: #Debility due to mechanical fall * PT/OT consult * fall precautions #Left medial malleolar and distal fibular fracture * unclear if acute or chonic. * podiatry reviewed patient and ordered CT of the LLE which showed fracture of the medial malleolus, posterior malleolus and third fracture site of the distal tibia. * PT/OT consult * fall precautions * tylenol, oxycodone and IV morphine prn for pain. * per podiatry, this is likely chronic, and so for conservative management. * # Cellulitis of the LLE * LLE wrapped in bandage * on IV vancomycin and zosyn * MRSA PCR positive. wound cultures also positive for Staph aureus. Will therefore dc zosyn * wound and blood cultures pending #Atrial fibrillation * on metoprolol. On coumadin; INR is 2.1 * resume coumadin as managemnt of fracture will be conservative, per podiatry * #History of prostate cancer; on enzalutamide. #Hyperlipidemia: on statin #Hypertension: on doxazosin and metoprolol #RAVIN * on CPAP qhs. Currently on 3L of oxygen by nasal canula * DVT prophylaxis: not indicated as he is on coumadin Code status: DNRCCA no intubation * Disposition; may benefit from placement, as he is quite weak and debilitated. PT/.OT and case management on board. Charges/Coding Visit Charges Inpatient E&M: 91619 Subs Hosp L2
[2022-04-07 13:01] LABS: International Normalized Ratio 2.6; Prothrombin Time (Protime)PT. 27.1 SECONDS (11.7-14.9)
--- NOTE | 2022-04-07 17:28 | NURSING ---
pt noted to be laying in bed with HOB elevated eating HR in [id number]'s to upper 160's. pt denies all chest pain or feeling tachycardia. encouraged patient to take a break from eating, aWaiting response from Dr. Brooke.
[2022-04-07] MEDS: Fluticasone 0.05% 1 SPRAY NASAL.SRY 2 SPRAY NASAL (17:48)
[2022-04-07] MEDS: Atorvastatin Calcium 80 MG Tablet PO (22:17)
[2022-04-07] MEDS: ENZALUTAMIDE 40 MG TABLET 160 MG PO (22:17)
[2022-04-08] VITALS (11 sets, daily range): BP systolic 117–138; BP diastolic 60–80; PULSE 83–133; RESP 17–18; TEMP 36.6–37.3; O2SAT 92–98
[2022-04-08] MEDS: HYDROcodone Bitartrate/Apap 5/325 Tablet PO ×3 (00:14→17:17)
[2022-04-08 05:39] LABS: Absolute Lymphocyte Count 0.87 X10^3/uL (0.83-4.51); Absolute Neutrophil Count 5.3 X10^3/uL (2.0-7.7); Basophil# 0.02 X10^3/uL; Basophil% 0.3 % (0-1); Eosinophils% 2.9 % (0-5); Hematocrit 31.9 % (40-54); Hemoglobin 10.6 g/dL (13.0-16.5); Lymphocyte # 0.87 X10^3/ul (0.83-4.51); Lymphocyte % 12.4 % (19-41); Mean Corp Hgb Conc 33.2 g/dL (32-36); Mean Corpuscular Hgb 29.4 pg (27.0-32.0); Mean Corpuscular Volume 88.6 fL (80-94); Mean Platelet Vol. 9.4 fl (6.2-12.0); Monocyte# 0.58 X10^3/uL; Monocyte% 8.3 % (0-10); NRBC Flagged by Analyzer 0 % (0-5); Neutrophil % 75.8 % (47-70); Platelet Count 102 K/mm3 (150-450); RBC Distribution Width CV 14.4 % (11.6-14.6); RBC Distribution Width SD 46.8 fl (35.1-43.9)
[2022-04-08 06:00] LABS: Anion Gap 6 (5-15); BUN 20 mg/dL (7-18); BUN/Creat Ratio 37.8 RATIO (10-20); Chloride 110 mmol/L (98-107); Creatinine, Serum 0.53 mg/dL (0.70-1.30); EST Glomerular Filtration Rate 162 mL/min (>60); Est Glom Filt Rate - Afr Amer 196 mL/min (>60); Estimated Creatinine Clearance 71.13 ml/min; Glucose 107 mg/dL (74-106); Potassium 3.3 mmol/L (3.5-5.1); Sodium Level 141 mmol/L (136-145)
--- NOTE | 2022-04-08 06:22 | PCM.RX.CS ---
Consult Pharmacy has been consulted to manage selected antiobiotic: Vancomycin Type of Consult: Follow-up Suspected Infection: Skin/Soft tissue Prior Doses of Antibiotics Received/Current Regimen: Medications Vancomycin HCl 1,500 mg/ (Sodium Chloride) 530 mls @ 250 mls/hr IV Q12H IVET Vancomycin HCl 1,250 mg/ (Sodium Chloride) 275 mls @ 167 mls/hr IV Q12H IVET Stop: 04/08/22 08:00 Last Admin: 04/08/22 05:48 Dose: 167 mls/hr Documented by: Labs: Sodium 141 mmol/L (136-145) 04/08/22 05:30 Potassium 3.3 mmol/L (3.5-5.1) L 04/08/22 05:30 Chloride 110 mmol/L (98-107) H 04/08/22 05:30 Carbon Dioxide 25.0 mmol/L (21.0-32.0) 04/08/22 05:30 Anion Gap 6 (5-15) 04/08/22 05:30 BUN 20 mg/dL (7-18) H 04/08/22 05:30 Creatinine 0.53 mg/dL (0.70-1.30) L 04/08/22 05:30 Est GFR (MDRD) Af Amer 196 mL/min (>60) 04/08/22 05:30 Est GFR (MDRD) Non-Af 162 mL/min (>60) 04/08/22 05:30 BUN/Creatinine Ratio 37.8 RATIO (10-20) H 04/08/22 05:30 Glucose 107 mg/dL (74-106) H 04/08/22 05:30 Vancomycin Trough 12.0 ug/mL (5.0-15.0) 04/08/22 05:30 Microbiology: Microbiology 04/06/22 Unknown Wound - Leg, Left Gram Stain - Final 04/06/22 Unknown Wound - Leg, Left Wound Culture - Preliminary Staphylococcus aureus Gram positive organism Weight used for dosin.5 kg Estimated Creatinine Clearance: >120 Goal Trough: 15-20 mcg/mL Pharmacy Plan for Drug Dosing: Vancomycin trough level of 12.0 was below target range of 15-20. Will increase dose to 1500mg q12h, and re-draw a trough prior to 4th dose of new regimen. Pharmacy Service will continue to monitor and adjust dosing as required. Follow-Up Labs: Trough Vancomycin Labs to be done on [date and time ordered]: 04/10/22 @0778
--- NOTE | 2022-04-08 10:30 | PCM.CONS.GEN ---
Assessment & Plan Assessment/Plan (1) Cellulitis of left lower limb: PLAN: Single (+) bcx with staph like. Wound cx with MRSA on pcr. On vanc. If bcx identified as staph aureus, would repeat bcx today and check TTE. Will follow, thank you. Reports covid vaccine x4. (2) Ankle fracture, left: HPI Consult Data Date of Consult: 04/08/22 HPI Narrative HPI Narrative: MEENAKSHI NI, is a 76 M who presented 04/06 after falling out of bed the night before and breaking L ankle. Had been feeling fine prior to this. Got the neighbor's attention, called 911, admitted, seen by podiatry. Had fever, started vanc/zosyn. Now single bcx (+), zosyn stopped. Wound cx pcr showing mRSA. Overall feeling better this AM. Full ROS performed and neg except as noted above. 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 Longstanding persistent atrial fibrillation Sepsis Traumatic hemothorax (12/30/18) Home Medications atorvastatin 80 mg PO QHS 04/02/16 [History Last Taken 11/24/21 22:00 80 mg] potassium chloride 20 mEq tablet,extended release 20 meq PO DAILY 12/03/18 [History Last Taken 11/25/21 10:00 20 meq] cetirizine 10 mg PO DAILY 12/27/18 [History Last Taken 11/25/21 10:00 10 mg] metoprolol tartrate 50 mg tablet 50 mg PO BID 03/15/19 [History Last Taken 11/25/21 10:00 50 mg] leuprolide (3 month) 22.5 mg (3 month) intramuscular syringe kit 11.25 mg IM [id number] 04/23/20 [History Last Taken 08/26/21] cholecalciferol (vitamin D3) 1,250 mcg (50,000 unit) capsule 1,000 unit PO DAILY cap 12/21/20 [History Last Taken 11/24/21 22:00 1000 units] enzalutamide 160 mg PO DAILY 01/05/21 [History Last Taken 11/24/21 22:00 160 mg] nystatin [Nyamyc] 1 applic TOPICAL BID 12/14/21 [History Last Taken Unknown] guaifenesin [Mucus Relief ER] 600 mg PO BID 12/17/21 [History Last Taken Unknown] acetaminophen 1,000 mg PO Q8 #0 tab 12/30/21 [Rx Last Taken Unknown] alprazolam 0.25 mg PO Q8H PRN 3 Days #9 tab 12/30/21 [Rx Last Taken Unknown] bisacodyl 10 mg PO DAILY PRN PRN #0 tab 12/30/21 [Rx Last Taken Unknown] doxazosin 4 mg PO DAILY #0 tab 12/30/21 [Rx Last Taken Unknown] menthol-zinc oxide [Calmoseptine] 1 applic TOPICAL TID #0 g 12/30/21 [Rx Last Taken Unknown] oxycodone 5 mg PO Q4H PRN PRN 3 Days #18 tab 12/30/21 [Rx Last Taken Unknown] polyethylene glycol 3350 17 g PO DAILY #0 ea 12/30/21 [Rx Last Taken Unknown] sennosides-docusate sodium [Stool Softener-Stimulant Laxat] 2 tab PO BID #0 tab 12/30/21 [Rx Last Taken Unknown] warfarin [Jantoven] 6.5 mg PO DINNER #0 tab 12/30/21 [Rx Last Taken Unknown] hydrocodone-acetaminophen 1 tab PO Q6H PRN 04/06/22 [History Last Taken Unknown] fluticasone propionate [Flonase] 2 spray INTRANASAL DAILY 04/07/22 [History Last Taken Unknown] Allergy/AdvReac Type Severity Reaction Status Date / Time amiodarone AdvReac Intermediate It did not Verified 04/06/22 08:38 work, also bad dreams and neuropathy Family History Father , Age 57 Myocardial infarction CAD (coronary artery disease) ETOH abuse Mother , Age 47, of bone cancer Bone cancer Brother , age 45, of AIDS AIDS (acquired immune deficiency syndrome) Surgical History H/O cervical spine surgery (01/2020) H/O coronary artery bypass surgery (11/26/98) History of left heart catheterization (11/26/98) History of left hip hemiarthroplasty History of thoracic spinal fusion (12/30/18) Social History household members: none Smoking Status: Former smoker alcohol intake: never substance use type: does not use Physical Exam Const alert, oriented x3 and no apparent distress General Appearance: cooperative Exam Limitations: no limitations HEENT normocephalic and head/scalp atraumatic Eyes PERRL and EOMs intact bilaterally Neck supple and No nodes Resp normal air movement and clear to auscultation bilaterally Cardio regular rate and regular rhythm GI soft to palpation, non-tender and non-distended Extremity General Extremity: edema Skin Skin Narrative: L lower leg wrapped. Mild redness around R lower leg. No splinter hemorrhages on hands. Neuro CN's II-XII intact bilaterally Lab / Micro Data Result Diagrams: 04/08/22 05:30 04/08/22 05:30 Labs: Laboratory Results - last 24 hr 04/07/22 12:45: PT 27.1 H, INR 2.6 04/08/22 05:30: WBC 7.0, RBC 3.60 L, Hgb 10.6 L, Hct 31.9 L, MCV 88.6, MCH 29.4, MCHC 33.2, RDW Std Deviation 46.8 H, RDW Coeff of Dick 14.4, Plt Count 102 L, MPV 9.4, Immature Gran % (Auto) 0.300, Neut % (Auto) 75.8 H, Lymph % (Auto) 12.4 L, [place] % (Auto) 8.3, Eos % (Auto) 2.9, Baso % (Auto) 0.3, Absolute Neuts (auto) 5.3, Absolute Lymphs (auto) 0.87, Nucleated RBC % 0 04/08/22 05:30: Sodium 141, Potassium 3.3 L, Chloride 110 H, Carbon Dioxide 25.0, Anion Gap 6, BUN 20 H, Creatinine 0.53 L, Estim Creat Clear Calc 71.13, Est GFR (MDRD) Af Amer 196, Est GFR (MDRD) Non-Af 162, BUN/Creatinine Ratio 37.8 H, Glucose 107 H, Calcium 7.0 L 04/08/22 05:30: Vancomycin Trough 12.0 Micro: Microbiology 04/06/22 12:05 Blood Culture (Wb) - Right Forearm Blood Culture - Preliminary 04/06/22 Unknown Wound - Leg, Left Gram Stain - Final 04/06/22 Unknown Wound - Leg, Left Wound Culture - Preliminary Staphylococcus aureus Gram positive organism
[2022-04-08] MEDS: Nystatin Powder 15gm Bottle 1 APPLIC TOPICAL ×2 (10:41→22:07)
[2022-04-08] MEDS: Fluticasone 0.05% 1 SPRAY NASAL.SRY 2 SPRAY NASAL (10:41)
[2022-04-08] MEDS: Potassium Chloride Oral Tablet 20 MEQ 40 MEQ PO (10:42)
[2022-04-08] MEDS: guaiFENesin 600 MG Tablet PO ×2 (10:42→22:07)
[2022-04-08] MEDS: Loratadine 10 MG Tablet PO (10:42)
[2022-04-08] MEDS: Doxazosin 4 MG Tablet PO (10:42)
[2022-04-08] MEDS: Metoprolol Tartrate 50 MG Tablet PO ×2 (10:42→18:24)
[2022-04-08] MEDS: Cholecalciferol (VIT D3) 25 MCG TABLET (1,000 UNITS) PO (10:42)
[2022-04-08] MEDS: Potassium Chloride Oral Tablet 20 MEQ PO (10:43)
--- NOTE | 2022-04-08 11:05 | CASEMGMT ---
MARIAJOSE PITT Face to Face with patient for initial transition planning/care coordination assessment. RN YOANDY introduced self and role at [facility]. Patient lying in bed, alert and oriented. Patient willing to participate in assessment and is able to answer all questions appropriately. Care providers, pharmacy, and demographics verified. Patient wishes to discharge home with resumption of HHC through [facility]. Patient states he has no further needs or concerns at this time. CM to follow for discharge planning needs that may arise. PCP: Norris Specialists: Jaelyn, application spec; Bobby, delivery rn; Wanda, oncologist Preferred Pharmacy: [facility] Insurance: [facility] Prescription Benefit: yes Living Will/HPOA: none LNOK: brother Living Arrangements: Patient lives alone in a 2nd floor apartment with 10 steps and railing to enter the home. Patient states he was independent for self care at home. Transportation: Caregiver DME/HHC: Patient states he has shower chair, cane, walker, grab bars, and cpap at home. Patient state he is active for HHC with [facility]. Patient states he also has private caregiver that assists with household duties. Patient states he has previously been to [facility]. Disposition Plan: Patient to discharge home with resumption of HHC, support of caregiver, and follow-up plans in place. Maureen MENENDEZ, RN, CM
--- NOTE | 2022-04-08 11:07 | PN.HOSP_ITS ---
Subjective Subjective Patient seen and examined. He had no active complaints and had an uneventful night. Review of systems is otherwise He has one single blood culture sample growing gram positive cocci. Objective Data Objective Data Vital Signs: Vital Signs Temp Pulse Resp BP Pulse Ox 99.2 F H 110 H 18 117/66 92 04/08/22 10:22 04/08/22 10:42 04/08/22 10:22 04/08/22 10:22 04/08/22 10:22 Oxygen Flow Rate (L/min) 3 Oxygen Delivery Method Room Air Weight: 285 lb 7.978 oz Body Mass Index (BMI) 38.7 Intake & Output: Intake and Output for Last 24 Hours 04/06/22 04/07/22 04/08/22 23:59 23:59 23:59 Intake Total 1640 / 1640 2980 / 2980 975 / 975 Output Total 275 / 275 600 / 600 Balance 1640 / 1640 2705 / 2705 375 / 375 Lab / Micro Data Result Diagrams: 04/08/22 05:30 04/08/22 05:30 Labs: Laboratory Results - last 24 hr 04/07/22 12:45: PT 27.1 H, INR 2.6 04/08/22 05:30: WBC 7.0, RBC 3.60 L, Hgb 10.6 L, Hct 31.9 L, MCV 88.6, MCH 29.4, MCHC 33.2, RDW Std Deviation 46.8 H, RDW Coeff of Dick 14.4, Plt Count 102 L, MPV 9.4, Immature Gran % (Auto) 0.300, Neut % (Auto) 75.8 H, Lymph % (Auto) 12.4 L, [place] % (Auto) 8.3, Eos % (Auto) 2.9, Baso % (Auto) 0.3, Absolute Neuts (auto) 5.3, Absolute Lymphs (auto) 0.87, Nucleated RBC % 0 04/08/22 05:30: Sodium 141, Potassium 3.3 L, Chloride 110 H, Carbon Dioxide 25.0, Anion Gap 6, BUN 20 H, Creatinine 0.53 L, Estim Creat Clear Calc 71.13, Est GFR (MDRD) Af Amer 196, Est GFR (MDRD) Non-Af 162, BUN/Creatinine Ratio 37.8 H, Glucose 107 H, Calcium 7.0 L 04/08/22 05:30: Vancomycin Trough 12.0 Micro: Microbiology 04/06/22 12:05 Blood Culture (Wb) - Right Forearm Blood Culture - Preliminary 04/06/22 Unknown Wound - Leg, Left Gram Stain - Final 04/06/22 Unknown Wound - Leg, Left Wound Culture - Preliminary Staphylococcus aureus Gram positive organism Physical Exam Const alert, oriented x3 and no apparent distress Exam Limitations: no limitations HEENT normocephalic, head/scalp atraumatic, hearing grossly normal bilaterally and moist oral mucous membranes Head and Scalp: normocephalic Eyes PERRL, EOMs intact bilaterally and conjunctivae normal Neck no lymphadenopathy, supple and no JVD Resp Resp Narrative: diminished breath sounds bibasally, no wheezes or crackles. On 3L of oxygen by nasal canula Cardio regular rate, S1 normal heart sound and S2 normal heart sound Cardio Narrative: afib; has grade 3 systolic murmur loudest in the aortic region GI normal to inspection, nondistended, normoactive bowel sounds, soft to palpation, non-tender and non-distended Extremity normal to inspection, full ROM and no clubbing, cyanosis or edema Extremity Narrative: LLE wrapped in bandage Peripheral Pulses: Yes pulses 2+ throughout Skin Skin Narrative: superficial ulceration over left elbow as above under skin Neuro oriented x3 Sensorium / Orientation: awake and alert Psych affect normal Assessment & Plan Assessment/Plan (1) Fall: (2) Ankle fracture, left: PLAN: #Debility due to mechanical fall * PT/OT consult * fall precautions #Left medial malleolar and distal fibular fracture * podiatry reviewed patient and ordered CT of the LLE which showed fracture of the medial malleolus, posterior malleolus and third fracture site of the distal tibia. * PT/OT consult * fall precautions * tylenol, oxycodone and IV morphine prn for pain. * per podiatry, this is likely chronic, and so for conservative management. * # Cellulitis of the LLE * LLE wrapped in bandage * on IV vancomycin * MRSA PCR positive. wound cultures also positive for MRSA * one blood culture sample positive for gram positive cocci. * ID consulted. Per ID, if blood culture identified s Staph aureus, will repeat blood culture and do TTE #Atrial fibrillation * on metoprolol. On coumadin; INR is 2.6 today * * #History of prostate cancer; on enzalutamide. #Hyperlipidemia: on statin #Hypertension: on doxazosin and metoprolol #RAVIN * on CPAP qhs. Currently on 3L of oxygen by nasal canula * DVT prophylaxis: not indicated as he is on coumadin Code status: DNRCCA no intubation * Disposition; may benefit from placement, as he is quite weak and debilitated. PT/.OT and case management on board. Charges/Coding Visit Charges Inpatient E&M: 46861 Subs Hosp L2
--- NOTE | 2022-04-08 11:43 | PN_ITS ---
Subjective Subjective 76-year-old male was seen bedside today for left ankle fracture with fracture blister formation and underlying cellulitis. Patient notes that he fractured this when he slid out of bed at his home on Thursday night. Patient was seen in the ED on Thursday and admitted. Patient denies any constitutional symptoms. Patient notes well-controlled pain. Patient denies any chest pain calf pain or shortness of breath no other complaints at this time. Objective Data Objective Data Vital Signs: Vital Signs Temp Pulse Resp BP Pulse Ox 99.2 F H 110 H 18 117/66 92 04/08/22 10:22 04/08/22 10:42 04/08/22 10:22 04/08/22 10:22 04/08/22 10:22 Oxygen Flow Rate (L/min) 3 Oxygen Delivery Method Room Air Weight: 129.5 kg Body Mass Index (BMI) 38.7 Intake & Output: Intake and Output for Last 24 Hours 04/06/22 04/07/22 04/08/22 23:59 23:59 23:59 Intake Total 1640 / 1640 2980 / 2980 975 / 975 Output Total 275 / 275 600 / 600 Balance 1640 / 1640 2705 / 2705 375 / 375 Lab / Micro Data Result Diagrams: 04/08/22 05:30 04/08/22 05:30 Labs: Laboratory Results - last 24 hr 04/07/22 12:45: PT 27.1 H, INR 2.6 04/08/22 05:30: WBC 7.0, RBC 3.60 L, Hgb 10.6 L, Hct 31.9 L, MCV 88.6, MCH 29.4, MCHC 33.2, RDW Std Deviation 46.8 H, RDW Coeff of Dick 14.4, Plt Count 102 L, MPV 9.4, Immature Gran % (Auto) 0.300, Neut % (Auto) 75.8 H, Lymph % (Auto) 12.4 L, [place] % (Auto) 8.3, Eos % (Auto) 2.9, Baso % (Auto) 0.3, Absolute Neuts (auto) 5.3, Absolute Lymphs (auto) 0.87, Nucleated RBC % 0 04/08/22 05:30: Sodium 141, Potassium 3.3 L, Chloride 110 H, Carbon Dioxide 25.0, Anion Gap 6, BUN 20 H, Creatinine 0.53 L, Estim Creat Clear Calc 71.13, Est GFR (MDRD) Af Amer 196, Est GFR (MDRD) Non-Af 162, BUN/Creatinine Ratio 37.8 H, Glucose 107 H, Calcium 7.0 L 04/08/22 05:30: Vancomycin Trough 12.0 Micro: Microbiology 04/06/22 Unknown Wound - Leg, Left Gram Stain - Final 04/06/22 Unknown Wound - Leg, Left Wound Culture - Preliminary Staphylococcus aureus Coag Negative Staph 04/06/22 12:05 Blood Culture (Wb) - Right Forearm Blood Culture - Preliminary Physical Exam Const alert and no apparent distress Extremity Extremity Narrative: Neurovascular status unchanged from previous visit. Improved edema erythema and warmth. Lysed bullous sites to anteromedial, anterior central left leg as well as medial ankle and distal tuft of the second digit. Mild periwound erythema edema warmth present. No other deep involvement or other signs of infection at this time. No pain with calf squeeze or palpation of popliteal fossa. Varicosities noted. No gross musculoskeletal deformity ankle joint range of motion remains smooth. Assessment & Plan Assessment/Plan (1) Cellulitis of left lower limb: (2) Onycholysis: (3) Blister (nonthermal), left lower leg, initial encounter: (4) Ankle fracture, left: (5) Venous insufficiency (chronic) (peripheral): PLAN: Re-evaluation performed. Reviewed left foot, ankle and tib/fib xrays, as well as CT scan - discussed results with patient. Ankle alignment maintained and no gross instability to the foot or ankle. Will treat nonsurgically. Keep left foot elevated, no weightbearing left foot. Patient remain nonweightbearing in cam boot the left lower extremity. Dressing change to left lower extremity blister sites appear to be resolving well. There is still some erythema and edema to left lower extremity. Cultures demonstrated growth of staph aureus patient on vancomycin. We will continue to change dressing on a daily basis. Dressing was changed today consisting of Adaptic 4 x 4's ABDs and a compressive dressing using Vincent bandages. Will continue to follow patient on a daily basis. Patient will likely require SNF placement as he lives alone and will need to maintain a nonweightbearing status to his left lower extremity.
--- NOTE | 2022-04-08 12:47 | CASEMGMT ---
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 She is aware currently the plan is for pt to return home with the [facility]. Will fax information when pt ready for dc.
[2022-04-08] MEDS: Morphine 2 MG/ML Syringe IV ×2 (12:59→22:08)
--- NOTE | 2022-04-08 14:55 | CHAPLAIN ---
Type of Pastoral Visit _x__ Initial Visit ___ Follow-up Visit ___ On-call Visit ___ General Patient Visit ___ Spiritual Assessment ___ Family Conference ___ Bereavement ___ Rapid Response ___ Code Blue ___ Other (describe below) Pastoral Care Referral From _x__ Patient ___ Family ___ Nurse ___ Physician ___ Divorce Attorney ___ Food And Beverage Outlets Manager ___ Other (describe below) Sacrament/Intervention _x__ Active listening ___ Anointing ___ Orthodoxy ___ Bereavement ___ Communion ___ Tiff exploration ___ ___ Life review _x__ Prayer ___ Reconciliation ___ Sacrament of Sick _x__ Supportive presence ___ Wedding ___ Other (describe below) Pastoral Comments patient has been seen in previous admission; pt gives update and expresses how he is managing; pt would like company from time to time while he is in hospital; pt requested a prayer; follow up will be planned
--- NOTE | 2022-04-08 15:39 | CASEMGMT ---
Social Work Pt seen by podiatry and pt to be non weight bearing on LLE. Pt has 10 steps to enter home and lives alone. SW met with pt and pt confirms he cannot return home at this time. SW provided pt with list of SNF providers including quality and resource use data and consistent with the patient's preferred geographic region, medical needs and insurance network. Pt preferred provider is [facility]. Phone call to [facility] and referral made to [facility]. Clinicals faxed. Will await determination if they can accept. JOHN Michaels
[2022-04-08] MEDS: Atorvastatin Calcium 80 MG Tablet PO (22:07)
[2022-04-08] MEDS: ENZALUTAMIDE 40 MG TABLET 160 MG PO (22:08)
[2022-04-08] MEDS: 0.9% Saline Lock 10 ML Syringe IV (22:10)
[2022-04-09] MEDS: HYDROcodone Bitartrate/Apap 5/325 Tablet PO ×3 (00:38→16:13)
[2022-04-09 03:00] VITALS: PULSE 88
[2022-04-09 04:28] VITALS: BP 123/69; PULSE 94; RESP 18; TEMP 36.6; O2SAT 95
[2022-04-09] MEDS: Morphine 2 MG/ML Syringe IV (04:32)
[2022-04-09 06:00] LABS: Absolute Lymphocyte Count 0.62 X10^3/uL (0.83-4.51); Absolute Neutrophil Count 3.7 X10^3/uL (2.0-7.7); Basophil# 0.02 X10^3/uL; Basophil% 0.4 % (0-1); Eosinophil# 0.27 X10^3/uL; Eosinophils% 5.4 % (0-5); Hemoglobin 9.9 g/dL (13.0-16.5); Lymphocyte # 0.62 X10^3/ul (0.83-4.51); Lymphocyte % 12.4 % (19-41); Mean Corpuscular Hgb 29.1 pg (27.0-32.0); Mean Corpuscular Volume 88.2 fL (80-94); Mean Platelet Vol. 9.6 fl (6.2-12.0); Monocyte# 0.37 X10^3/uL; Monocyte% 7.4 % (0-10); NRBC Flagged by Analyzer 0 % (0-5); Platelet Count 112 K/mm3 (150-450); RBC Distribution Width CV 13.9 % (11.6-14.6); RBC Distribution Width SD 44.8 fl (35.1-43.9)
[2022-04-09 06:30] LABS: Anion Gap 5 (5-15); BUN 17 mg/dL (7-18); BUN/Creat Ratio 39.8 RATIO (10-20); Chloride 109 mmol/L (98-107); Creatinine, Serum 0.43 mg/dL (0.70-1.30); EST Glomerular Filtration Rate 207 mL/min (>60); Est Glom Filt Rate - Afr Amer 250 mL/min (>60); Estimated Creatinine Clearance 71.13 ml/min; Glucose 107 mg/dL (74-106); Potassium 3.6 mmol/L (3.5-5.1); Sodium Level 139 mmol/L (136-145)
--- NOTE | 2022-04-09 08:53 | PN_ITS ---
Subjective Subjective 76-year-old male was seen bedside today for left ankle fracture with fracture blister formation and underlying cellulitis. Patient notes that he fractured this when he slid out of bed at his home on Thursday night. Patient was seen in the ED on Thursday and admitted. Patient denies any constitutional symptoms. Patient notes some improvement in pain. Patient denies any chest pain calf pain or shortness of breath no other complaints at this time. Objective Data Objective Data Vital Signs: Vital Signs Temp Pulse Resp BP Pulse Ox 98 F 94 18 123/69 H 95 04/09/22 04:28 04/09/22 04:28 04/09/22 04:28 04/09/22 04:28 04/09/22 04:28 Oxygen Flow Rate (L/min) 2 Oxygen Delivery Method Nasal Cannula Weight: 129.5 kg Body Mass Index (BMI) 38.7 Intake & Output: Intake and Output for Last 24 Hours 04/07/22 04/08/22 04/09/22 23:59 23:59 23:59 Intake Total 2980 / 2980 1833.25 / 1833.25 800 / 800 Output Total 275 / 275 725 / 725 1000 / 1000 Balance 2705 / 2705 1108.25 / 1108.25 -200 / -200 Lab / Micro Data Result Diagrams: 04/09/22 05:40 04/09/22 05:40 Labs: Laboratory Results - last 24 hr 04/09/22 05:40: WBC 5.0, RBC 3.40 L, Hgb 9.9 L, Hct 30.0 L, MCV 88.2, MCH 29.1, MCHC 33.0, RDW Std Deviation 44.8 H, RDW Coeff of Dick 13.9, Plt Count 112 L, MPV 9.6, Immature Gran % (Auto) 0.400, Neut % (Auto) 74.0 H, Lymph % (Auto) 12.4 L, [place] % (Auto) 7.4, Eos % (Auto) 5.4 H, Baso % (Auto) 0.4, Absolute Neuts (auto) 3.7, Absolute Lymphs (auto) 0.62 L, Nucleated RBC % 0 04/09/22 05:40: Sodium 139, Potassium 3.6, Chloride 109 H, Carbon Dioxide 25.0, Anion Gap 5, BUN 17, Creatinine 0.43 L, Estim Creat Clear Calc 71.13, Est GFR (MDRD) Af Amer 250, Est GFR (MDRD) Non-Af 207, BUN/Creatinine Ratio 39.8 H, Glucose 107 H, Calcium 7.0 L Micro: Microbiology 04/06/22 12:05 Blood Culture (Wb) - Right Forearm Blood Culture - Preliminary Coag Negative Staph 04/06/22 Unknown Wound - Leg, Left Gram Stain - Final 04/06/22 Unknown Wound - Leg, Left Wound Culture - Final Meth. resistant Staph. aureus Coag Negative Staph Radiography Diagnostic Testing: Radiology Impression Brain CT 04/06/22 09:03 IMPRESSION: Chronic involutional changes of the brain. The intracranial hemorrhage seen in December 2018 has cleared. No acute intracranial injury. Electronically Signed: Andrews Hugo MD at 10:02 EDT , ADDENDUM: 04/08/22 1159 IMPRESSION: undefined Chest X-Ray 04/06/22 09:45 IMPRESSION: 1. No sign of acute thoracic injury. 2. Stable cardiac enlargement. Prior median sternotomy. No CHF. 3. Mild subsegmental atelectasis in the left base. 4. Bilateral metal fixation hardware again seen in the spine T7-T12. Electronically Signed: Andrews Hugo MD at 10:24 EDT , ADDENDUM: 04/08/22 1200 IMPRESSION: undefined Physical Exam Const alert and no apparent distress Extremity Extremity Narrative: Neurovascular status unchanged from previous visit. Significantly improved edema, erythema and warmth. Lysed bullous sites to anteromedial, anterior central left leg as well as medial ankle and distal tuft of the second digit. Mild periwound erythema edema warmth present. No other deep involvement or other signs of infection at this time. No pain with calf squeeze or palpation of popliteal fossa. Varicosities noted. No gross musculoskeletal deformity ankle joint range of motion remains smooth. Assessment & Plan Assessment/Plan (1) Cellulitis of left lower limb: (2) Onycholysis: (3) Blister (nonthermal), left lower leg, initial encounter: (4) Ankle fracture, left: (5) Venous insufficiency (chronic) (peripheral): PLAN: Re-evaluation performed. Reviewed left foot, ankle and tib/fib xrays, as well as CT scan - discussed results with patient. Ankle alignment maintained and no gross instability to the foot or ankle. Will treat no nsurgically. Keep left foot elevated, no weightbearing left foot. Patient remain nonweightbearing in cam boot the left lower extremity. Dressing change to left lower extremity blister sites appear to be resolving well. Cellulitis appears to be resolving with IV vancomycin. We will continue to change dressing on a daily basis. Dressing was changed today consisting of Adaptic 4 x 4's ABDs and a compressive dressing using Vincent bandages. Will continue to follow patient on a daily basis. Patient will likely require SNF placement as he lives alone and will need to maintain a nonweightbearing status to his left lower extremity.
[2022-04-09 09:28] VITALS: PULSE 87
[2022-04-09] MEDS: Doxazosin 4 MG Tablet PO (09:33)
[2022-04-09] MEDS: Senna/Docusate Sodium 1 Tablet 2 TABLET PO (09:33)
[2022-04-09] MEDS: Potassium Chloride Oral Tablet 20 MEQ PO (09:33)
[2022-04-09] MEDS: Loratadine 10 MG Tablet PO (09:33)
[2022-04-09] MEDS: Cholecalciferol (VIT D3) 25 MCG TABLET (1,000 UNITS) PO (09:33)
[2022-04-09] MEDS: guaiFENesin 600 MG Tablet PO (09:34)
[2022-04-09] MEDS: Nystatin Powder 15gm Bottle 1 APPLIC TOPICAL (09:34)
[2022-04-09] MEDS: Fluticasone 0.05% 1 SPRAY NASAL.SRY 2 SPRAY NASAL (09:34)
[2022-04-09 09:35] VITALS: PULSE 96
[2022-04-09] MEDS: Metoprolol Tartrate 50 MG Tablet PO (09:35)
[2022-04-09 09:45] VITALS: BP 123/85; PULSE 96; RESP 17; TEMP 36.5; O2SAT 92
--- NOTE | 2022-04-09 10:24 | CASEMGMT ---
Spoke with May at [facility], she is aware pt is planning on going to [facility] pending precert.
--- NOTE | 2022-04-09 10:50 | PN.HOSP_ITS ---
Subjective Subjective Patient seen and examined. He had no active complaints and had an uneventful night. Review of systems is otherwise negative. Objective Data Objective Data Vital Signs: Vital Signs Temp Pulse Resp BP Pulse Ox 97.7 F L 96 17 123/85 H 92 04/09/22 09:45 04/09/22 09:45 04/09/22 09:45 04/09/22 09:45 04/09/22 09:45 Oxygen Flow Rate (L/min) 2 Oxygen Delivery Method Room Air Weight: 285 lb 7.978 oz Body Mass Index (BMI) 38.7 Intake & Output: Intake and Output for Last 24 Hours 04/07/22 04/08/22 04/09/22 23:59 23:59 23:59 Intake Total 2980 / 2980 1833.25 / 1833.25 800 / 800 Output Total 275 / 275 725 / 725 1000 / 1000 Balance 2705 / 2705 1108.25 / 1108.25 -200 / -200 Lab / Micro Data Result Diagrams: 04/09/22 05:40 04/09/22 05:40 Labs: Laboratory Results - last 24 hr 04/09/22 05:40: WBC 5.0, RBC 3.40 L, Hgb 9.9 L, Hct 30.0 L, MCV 88.2, MCH 29.1, MCHC 33.0, RDW Std Deviation 44.8 H, RDW Coeff of Dick 13.9, Plt Count 112 L, MPV 9.6, Immature Gran % (Auto) 0.400, Neut % (Auto) 74.0 H, Lymph % (Auto) 12.4 L, [place] % (Auto) 7.4, Eos % (Auto) 5.4 H, Baso % (Auto) 0.4, Absolute Neuts (auto) 3.7, Absolute Lymphs (auto) 0.62 L, Nucleated RBC % 0 04/09/22 05:40: Sodium 139, Potassium 3.6, Chloride 109 H, Carbon Dioxide 25.0, Anion Gap 5, BUN 17, Creatinine 0.43 L, Estim Creat Clear Calc 71.13, Est GFR (MDRD) Af Amer 250, Est GFR (MDRD) Non-Af 207, BUN/Creatinine Ratio 39.8 H, Glucose 107 H, Calcium 7.0 L Micro: Microbiology 04/06/22 11:55 Blood Culture (Wb) - Anticubital Left Blood Culture - Preliminary No growth in 48 hours. 04/06/22 12:05 Blood Culture (Wb) - Right Forearm Blood Culture - Preliminary Coag Negative Staph 04/06/22 Unknown Wound - Leg, Left Gram Stain - Final 04/06/22 Unknown Wound - Leg, Left Wound Culture - Final Meth. resistant Staph. aureus Coag Negative Staph Radiography Diagnostic Testing: Radiology Impression Brain CT 04/06/22 09:03 IMPRESSION: Chronic involutional changes of the brain. The intracranial hemorrhage seen in December 2018 has cleared. No acute intracranial injury. Electronically Signed: Andrews Hugo MD at 10:02 EDT , ADDENDUM: 04/08/22 1159 IMPRESSION: undefined Chest X-Ray 04/06/22 09:45 IMPRESSION: 1. No sign of acute thoracic injury. 2. Stable cardiac enlargement. Prior median sternotomy. No CHF. 3. Mild subsegmental atelectasis in the left base. 4. Bilateral metal fixation hardware again seen in the spine T7-T12. Electronically Signed: Andrews Hugo MD at 10:24 EDT , ADDENDUM: 04/08/22 1200 IMPRESSION: undefined Physical Exam Const alert, oriented x3 and no apparent distress Exam Limitations: no limitations HEENT normocephalic, head/scalp atraumatic, hearing grossly normal bilaterally and moist oral mucous membranes Head and Scalp: normocephalic Eyes PERRL, EOMs intact bilaterally and conjunctivae normal Neck no lymphadenopathy, supple and no JVD Resp Resp Narrative: diminished breath sounds bibasally, no wheezes or crackles. On 3L of oxygen by nasal canula Cardio regular rate, S1 normal heart sound and S2 normal heart sound Cardio Narrative: afib; has grade 3 systolic murmur loudest in the aortic region GI normal to inspection, nondistended, normoactive bowel sounds, soft to palpation, non-tender and non-distended Extremity normal to inspection, full ROM and no clubbing, cyanosis or edema Extremity Narrative: LLE wrapped in bandage Peripheral Pulses: Yes pulses 2+ throughout Skin Skin Narrative: superficial ulceration over left elbow as above under skin Neuro oriented x3 Neuro Narrative: lethargic Sensorium / Orientation: awake and alert Psych affect normal Assessment & Plan Assessment/Plan (1) Fall: (2) Ankle fracture, left: PLAN: #Debility due to mechanical fall * PT/OT consult * fall precautions #Left medial malleolar and distal fibular fracture * podiatry reviewed patient and ordered CT of the LLE which showed fracture of the medial malleolus, posterior malleolus and third fracture site of the distal tibia. * PT/OT consult * fall precautions * tylenol, oxycodone and IV morphine prn for pain. * per podiatry, this is likely chronic, and so for conservative management. * # Cellulitis of the LLE * LLE wrapped in bandage * on IV vancomycin * MRSA PCR positive. wound cultures also positive for MRSA and coagulase negative staph * blood cultures (1/2 sample) positive for coagulase negative Staph. * ID on board. #Atrial fibrillation * on metoprolol. On coumadin; INR is pending today * * #History of prostate cancer; on enzalutamide. #Hyperlipidemia: on statin #Hypertension: on doxazosin and metoprolol #RAVIN * on CPAP qhs. Currently on 3L of oxygen by nasal canula * DVT prophylaxis: not indicated as he is on coumadin Code status: DNRCCA no intubation * Disposition; awaiting placement Charges/Coding Visit Charges Inpatient E&M: 21243 Subs Hosp L2
--- NOTE | 2022-04-09 11:24 | WOUNDNOTE ---
wound photo: left lower leg
--- NOTE | 2022-04-09 11:24 | WOUNDNOTE ---
wound photo: left lower leg
--- NOTE | 2022-04-09 11:25 | WOUNDNOTE ---
wound photo: left foot
--- NOTE | 2022-04-09 11:26 | WOUNDNOTE ---
wound photo: left elbow
[2022-04-09 11:51] LABS: Prothrombin Time (Protime)PT. 30.7 SECONDS (11.7-14.9)
--- NOTE | 2022-04-09 11:51 | CASEMGMT ---
Addendum entered by Lizette Prabhakar 04/09/22 14:39: Social Work Return call from Demetra at [facility] and precert has been obtained. Physician updated. SW attempted to notify pt but pt sleeping soundly. Pt to be updated at a later time. Plan: [facility], when medically ready JOHN Michaels Original Note: Social Work SW received phone call from Demetra at [facility] and they are able to accept pt if pt is able to bring two of his home meds. SW met with pt and explained this and pt is agreeable to bring own meds. Precert started at this time. SW spoke with pt regarding last three years of illness and debility and emotional support provided. SW will remain available should further needs arise. Plan: [facility], pending precert JOHN Michaels
--- NOTE | 2022-04-09 13:45 | PCM.PN.ID ---
Physical Exam Narrative Feeling better, no fever, no n/v/d, was up some with assistance. Const alert and no apparent distress General Appearance: cooperative Resp normal air movement and clear to auscultation bilaterally Cardio regular rate and regular rhythm GI soft to palpation, non-tender and non-distended Skin no rashes or lesions noted ID ID: Route of nutrition/ use of supplements: [] Nutritional Intake: [] IV Site: [] Gutierrez Catheter: [] Assessment & Plan Assessment/Plan (1) Cellulitis of left lower limb: PLAN: Single (+) bcx with CoNS, consistent with contamination. Wound cx with MRSA. On vanc. Ok for discharge on 4 more days po doxy 100mg bid and keflex 500mg tid. Will follow, d/w immigration case manager (2) Ankle fracture, left:
--- NOTE | 2022-04-09 14:36 | PCM.DC.SUM ---
Providers Date of Admission: 04/06/22 Primary Care Physician: Dr. James Pisano MD Consultations 04/06/22 13:08 Consult: Podiatry Routine Consulting Provider: Roby Banerjee Reason for Consult: left malleolar and tibial fracture EMERGENT Consult: No Notified: Yes Date Notified: 04/06/22 Time Notified: 12:42 Method of Notification: Text 04/08/22 09:56 Consult: Infectious Disease Routine Consulting Provider: Corby Logan Reason for Consult: staph bacteremia EMERGENT Consult: No Notified: Yes Date Notified: 04/08/22 Time Notified: 09:56 Method of Notification: Text 04/08/22 14:23 Consult: Onc/Wound/beer runner Routine Comment: Reason For Visit: DEBILITY DUE TO MECHANICAL FALL Diagnosis Discharge Diagnosis (1) Cellulitis of left lower limb: Status: Acute Code(s): L03.116 - Cellulitis of left lower limb (2) Ankle fracture, left: Status: Acute Code(s): S82.892A - Other fracture of left lower leg, initial encounter for closed fracture Medications at Discharge Home Medications atorvastatin 80 mg PO QHS 04/02/16 potassium chloride 20 mEq tablet,extended release 20 meq PO DAILY 12/03/18 cetirizine 10 mg PO DAILY 12/27/18 metoprolol tartrate 50 mg tablet 50 mg PO BID 03/15/19 leuprolide (3 month) 22.5 mg (3 month) intramuscular syringe kit 11.25 mg IM [id number] 04/23/20 cholecalciferol (vitamin D3) 1,250 mcg (50,000 unit) capsule 1,000 unit PO DAILY cap 10/29/20 enzalutamide 160 mg PO DAILY 01/05/21 nystatin [Nyamyc] 1 applic TOPICAL BID 12/14/21 guaifenesin [Mucus Relief ER] 600 mg PO BID 12/17/21 acetaminophen 1,000 mg PO Q8 #0 tab 12/30/21 alprazolam 0.25 mg PO Q8H PRN 3 Days #9 tab 12/30/21 bisacodyl 10 mg PO DAILY PRN PRN #0 tab 12/30/21 doxazosin 4 mg PO DAILY #0 tab 12/30/21 menthol-zinc oxide [Calmoseptine] 1 applic TOPICAL TID #0 g 12/30/21 oxycodone 5 mg PO Q4H PRN PRN 3 Days #18 tab 12/30/21 polyethylene glycol 3350 17 g PO DAILY #0 ea 12/30/21 sennosides-docusate sodium [Stool Softener-Stimulant Laxat] 2 tab PO BID #0 tab 12/30/21 warfarin [Jantoven] 6.5 mg PO DINNER #0 tab 12/30/21 hydrocodone-acetaminophen 1 tab PO Q6H PRN 04/06/22 fluticasone propionate 2 spray INTRANASAL DAILY 04/07/22 cephalexin 500 mg PO TID #12 cap 04/09/22 doxycycline hyclate 100 mg PO BID #8 cap 04/09/22 Hospital Course Operations None Procedures None Summary of Care Provided Minutes Spent on Discharge: 45 Hospital Course: MEENAKSHI NI, is a 76 M with a PMH as outlined who presents via the ED on 04/06/2022 with a complaint of mechanical fall. He apparently fell out of bed the night before admission and couldnt get up on his own. He says he just slid off the bed and fell down. He says this has happened to him in the past. He denied any antecedent dizziness, palpitations, chest pain or syncope. He called out loudly for his neighbors who called 911. Patient is on coumadin. On admission in the ED, vitals were BP of 139/84, IN of 111, RR of 16n and temp was 99.9F. CBC was unremarkable; INR was 2.1. Chemistry was also essentially unremarkable. CT of the brain showed no acute intracranial pathology. Foot xray showed a bimalleolar, possible trimalleolar ankle fracture, age uncertain, with soft tissue swelling. CXR showed no acute cardiopulonary pathology. He was admitted for debility due to mechanical fall, as well as left medial malleolus and distal fibular fractures, unclear if acute. He was also noted to have redness and blisters over his LLE. He was therefore treated for cellulitis of his left lower extremity. He was started on vancomycin and Zosyn. Podiatry was consulted. CT of the left lower extremity showed fracture of the medial malleolus, posterior malleolus and third fracture site of the distal tibia. Podiatry recommended conservative management. MRSA PCR was positive. Wound cultures also positive for MRSA and coagulase-negative staph. Zosyn was therefore discontinued. Blood cultures 1 out of 2 samples was initially positive for gram-positive cocci which turned out to be coagulase-negative staph. Patient's symptoms improved and he felt much better. He was deemed as needing skilled care because of his weakness and debility. [facility] therefore [facility] on [facility]22. Of note infectious disease was consulted on account of his positive blood cultures. He was [facility] to [facility] facility on 04/09/2022 on 4 more days of p.o. doxycycline and Keflex. He is to follow-up with his PCP and podiatry. Patient was seen and examined prior to discharge. He felt well and had no active complaints. He had an uneventful night. Review of systems otherwise negative. Labs and vitals reviewed. Home medication reviewed and reconciled. Physical Exam Const alert, oriented x3 and no apparent distress General Appearance: cooperative and comfortable Orientation / Consciousness: awake Exam Limitations: no limitations HEENT normocephalic, head/scalp atraumatic, hearing grossly normal bilaterally and moist oral mucous membranes Eyes PERRL, EOMs intact bilaterally and conjunctivae normal Neck no lymphadenopathy, supple and no JVD Resp Resp Narrative: diminished breath sounds bibasally, no wheezes or crackles. On 3L of oxygen by nasal canula Cardio regular rate, S1 normal heart sound and S2 normal heart sound Cardio Narrative: afib; has grade 3 systolic murmur loudest in the aortic region GI normal to inspection, nondistended, normoactive bowel sounds, soft to palpation, non-tender and non-distended Extremity normal to inspection, full ROM and no clubbing, cyanosis or edema Extremity Narrative: LLE wrapped in bandage Skin Skin Narrative: superficial ulceration over left elbow as above under skin Neuro oriented x3 Neuro Narrative: lethargic Sensorium / Orientation: awake and alert Psych affect normal Weight / BMI Weight Weight: 285 lb 7.978 oz Body Mass Index (BMI) 38.7 ABG / Lab / Microbiology Data Result Diagrams: 04/09/22 05:40 04/09/22 05:40 Laboratory: Laboratory Results - last 24 hr 04/09/22 05:40: WBC 5.0, RBC 3.40 L, Hgb 9.9 L, Hct 30.0 L, MCV 88.2, MCH 29.1, MCHC 33.0, RDW Std Deviation 44.8 H, RDW Coeff of Dick 13.9, Plt Count 112 L, MPV 9.6, Immature Gran % (Auto) 0.400, Neut % (Auto) 74.0 H, Lymph % (Auto) 12.4 L, [place] % (Auto) 7.4, Eos % (Auto) 5.4 H, Baso % (Auto) 0.4, Absolute Neuts (auto) 3.7, Absolute Lymphs (auto) 0.62 L, Nucleated RBC % 0 04/09/22 05:40: Sodium 139, Potassium 3.6, Chloride 109 H, Carbon Dioxide 25.0, Anion Gap 5, BUN 17, Creatinine 0.43 L, Estim Creat Clear Calc 71.13, Est GFR (MDRD) Af Amer 250, Est GFR (MDRD) Non-Af 207, BUN/Creatinine Ratio 39.8 H, Glucose 107 H, Calcium 7.0 L 04/09/22 11:33: PT 30.7 H, INR 3.0 Microbiology: Microbiology 04/06/22 11:55 Blood Culture (Wb) - Anticubital Left Blood Culture - Preliminary No growth in 48 hours. 04/06/22 12:05 Blood Culture (Wb) - Right Forearm Blood Culture - Preliminary Coag Negative Staph 04/06/22 Unknown Wound - Leg, Left Gram Stain - Final 04/06/22 Unknown Wound - Leg, Left Wound Culture - Final Meth. resistant Staph. aureus Coag Negative Staph D/C Instructions Discharge Diet: Low fat / Low cholesterol Discharge Activity: Return to Normal Activity Weight Bearing Status: Weight bearing as tolerated Call your doctor if you observe: Fever of 101 or Higher, Shortness of breath, Dizziness, Swelling in the ankles and Chest pain Meaningful Use Info Meaningful Use Diagnoses (Choose all that apply): None applicable Discharge Plan Admission Admit Date/Time: 04/06/22 12:34 Primary Reason for Your Visit: cellulitis of LLE Attending Provider: Molly Brooke Primary Care Provider: James Pisano Chi Consulting Providers: Roby Banerjee ; Corby Logan Instructions Patient Instructions: Cellulitis Discharge Orders/Prescriptions Prescriptions: New doxycycline hyclate 100 mg capsule 100 mg PO BID Qty: 8 RF: 0 cephalexin 500 mg capsule 500 mg PO TID Qty: 12 RF: 0 Continued potassium chloride 20 mEq tablet extended release 20 meq PO DAILY RF: 0 cholecalciferol (vitamin D3) 1,250 mcg (50,000 unit) capsule 1,000 unit PO DAILY RF: 0 metoprolol tartrate 50 mg tablet 50 mg PO BID RF: 0 Lupron Dep[place] (3 month) 22.5 mg syringe kit 11.25 mg IM [id number] RF: 0 atorvastatin 80 MG tablet 80 mg PO QHS RF: 0 cetirizine 10 MG capsule 10 mg PO DAILY RF: 0 enzalutamide 40 MG capsule 160 mg PO DAILY RF: 0 nystatin [Nyamyc] 100,000 unit/gram powder 1 applic topical BID RF: 0 guaifenesin [Mucus Relief ER] 600 mg tablet extended release 12hr 600 mg PO BID RF: 0 polyethylene glycol 3350 17 gram Powder In Packet 17 g PO DAILY Qty: 0 RF: 0 sennosides-docusate sodium [Stool Softener-Stimulant Laxat] 8.6-50 mg Tablet 2 tab PO BID Qty: 0 RF: 0 warfarin [Jantoven] 2.5 mg Tablet 6.5 mg PO DINNER Qty: 0 RF: 0 acetaminophen 500 mg Tablet 1,000 mg PO Q8 Qty: 0 RF: 0 alprazolam 0.25 mg Tablet 0.25 mg PO Q8H PRN (Reason: Anxiety) 3 Days Qty: 9 RF: 0 doxazosin 4 mg Tablet 4 mg PO DAILY Qty: 0 RF: 0 bisacodyl 5 mg Tablet,Delayed Release (Dr/Ec) 10 mg PO DAILY PRN PRN (Reason: Constipation) Qty: 0 RF: 0 oxycodone 5 mg Tablet 5 mg PO Q4H PRN PRN (Reason: Pain Score 4-10) 3 Days Qty: 18 RF: 0 menthol-zinc oxide [Calmoseptine] 0.44-20.6 % Ointment 1 applic topical TID Qty: 0 RF: 0 hydrocodone-acetaminophen 5-325 mg Tablet 1 tab PO Q6H PRN (Reason: Chronic pain) RF: 0 fluticasone propionate 50 mcg/actuation [place],Suspension 2 spray INTRANASAL DAILY RF: 0 Referrals / Follow Up: James Pisano Chi, MD [Primary Care Provider] - Within 2 Weeks Disposition Disposition (needs filled in before D/C Order can be placed): Shelter Facility Charges/Coding Visit Charges Inpatient E&M: 13485 Disch Hosp
--- NOTE | 2022-04-09 14:51 | TREXTCAR_ITS ---
Diet 04/06/22 13:09 Diet: Cardiac - Heart Healthy Food consistency:: Regular Liquid Consistency:: Regular/Thin Routine Orders/Code Status Enema Type: Fleetz Enema Frequency: Daily PRN Suppository Type: Dulcolax 10mg Suppository Frequency: Daily PRN Keep PO Greater than or Equal to (%): 90 Wound(s) LFT ELBOW: Wound Type: Abrasion Dressing Change: Mepilex ADB FOLD: Wound Type: Abrasion SCROTUM: Wound Type: Abrasion LLE: Wound Type: BLISTERS Dressing Change: Adaptic Therapies Weight Bearing: Non weight bearing Physical Therapy: Eval and Treat Occupational Therapy: Eval and Treat Problem/Diagnosis (1) Cellulitis of left lower limb: Status: Acute (2) Ankle fracture, left: Status: Acute Allergies/Procedures Done in Hospital Allergies amiodarone Adverse Reaction (Intermediate, Verified 04/06/22 08:38) It did not work, also bad dreams and neuropathy Type of Care/Length of Stay Estimated LOS: Convalescent Care Less Than 30 days Type of Care Needed: Skilled Rehab Potential: Fair Prognosis: Fair Additional Orders/Day of Discharge Day of Discharge: 04/09/22 Discharge Plan Admission Admit Date/Time: 04/06/22 12:34 Primary Reason for Your Visit: cellulitis of LLE Attending Provider: Molly Brooke Primary Care Provider: James Pisano Chi Consulting Providers: Roby Banerjee ; Corby Logan Instructions Patient Instructions: Cellulitis Discharge Orders/Prescriptions Prescriptions: New doxycycline hyclate 100 mg capsule 100 mg PO BID Qty: 8 RF: 0 cephalexin 500 mg capsule 500 mg PO TID Qty: 12 RF: 0 Continued potassium chloride 20 mEq tablet extended release 20 meq PO DAILY RF: 0 cholecalciferol (vitamin D3) 1,250 mcg (50,000 unit) capsule 1,000 unit PO DAILY RF: 0 metoprolol tartrate 50 mg tablet 50 mg PO BID RF: 0 Lupron Depot (3 month) 22.5 mg syringe kit 11.25 mg IM [id number] RF: 0 atorvastatin 80 MG tablet 80 mg PO QHS RF: 0 cetirizine 10 MG capsule 10 mg PO DAILY RF: 0 enzalutamide 40 MG capsule 160 mg PO DAILY RF: 0 nystatin [Nyamyc] 100,000 unit/gram powder 1 applic topical BID RF: 0 guaifenesin [Mucus Relief ER] 600 mg tablet extended release 12hr 600 mg PO BID RF: 0 polyethylene glycol 3350 17 gram Powder In Packet 17 g PO DAILY Qty: 0 RF: 0 sennosides-docusate sodium [Stool Softener-Stimulant Laxat] 8.6-50 mg Tablet 2 tab PO BID Qty: 0 RF: 0 warfarin [Jantoven] 2.5 mg Tablet 6.5 mg PO DINNER Qty: 0 RF: 0 acetaminophen 500 mg Tablet 1,000 mg PO Q8 Qty: 0 RF: 0 alprazolam 0.25 mg Tablet 0.25 mg PO Q8H PRN (Reason: Anxiety) 3 Days Qty: 9 RF: 0 doxazosin 4 mg Tablet 4 mg PO DAILY Qty: 0 RF: 0 bisacodyl 5 mg Tablet,Delayed Release (Dr/Ec) 10 mg PO DAILY PRN PRN (Reason: Constipation) Qty: 0 RF: 0 oxycodone 5 mg Tablet 5 mg PO Q4H PRN PRN (Reason: Pain Score 4-10) 3 Days Qty: 18 RF: 0 menthol-zinc oxide [Calmoseptine] 0.44-20.6 % Ointment 1 applic topical TID Qty: 0 RF: 0 hydrocodone-acetaminophen 5-325 mg Tablet 1 tab PO Q6H PRN (Reason: Chronic pain) RF: 0 fluticasone propionate 50 mcg/actuation [place],Suspension 2 spray INTRANASAL DAILY RF: 0 Referrals / Follow Up: James Pisano Chi, MD [Primary Care Provider] - Within 2 Weeks Disposition Disposition (needs filled in before D/C Order can be placed): Senior Living Facility
[2022-04-09 15:08] VITALS: BP 133/83; PULSE 110; RESP 18; TEMP 36.7; O2SAT 94
--- NOTE | 2022-04-09 15:45 | CASEMGMT ---
Social Work Per physician, pt is ready for discharge today. Pt notified and agreeable to discharge plan. 7000 convalescent form completed in [facility] and faxed along with orders to [facility]. Transportation arranged with [facility] for 1630 hand picker via cot. Phone call to Demetra at [facility] and notified of discharge time. Nursing updated. Pt states he will notify his family of discharge plan. Plan: [facility] skilled level of care under convalescent stay. JOHN Michaels
== END 2022-04-09 17:43 | disposition skilled nursing facility (03) | DRG 603 ==
LOC: ED 12:22 → MS3 12:38
PROVIDERS: Admitting Provider Student in an Organized Health Care Education/Training Program; Emergency Provider Emergency Medicine; PCP Family Medicine Geriatric Medicine; Visit Provider Student in an Organized Health Care Education/Training Program
DX: L03.116 Cellulitis of left lower limb (principal); I48.11 Longstanding persistent atrial fibrillation; S82.845A Nondisplaced bimalleolar fracture of left lower leg, initial encounter for closed fracture; B95.62 Methicillin resistant Staphylococcus aureus infection as the cause of diseases classified elsewhere; I25.10 Atherosclerotic heart disease of native coronary artery without angina pectoris; I87.2 Venous insufficiency (chronic) (peripheral); E78.5 Hyperlipidemia, unspecified; I10 Essential (primary) hypertension; G47.33 Obstructive sleep apnea (adult) (pediatric); W06.XXXA Fall from bed, initial encounter; L60.1 Onycholysis; S80.822A Blister (nonthermal), left lower leg, initial encounter; Z79.01 Long term (current) use of anticoagulants; Z66 Do not resuscitate; R53.81 Other malaise; Z87.891 Personal history of nicotine dependence; Z79.899 Other long term (current) drug therapy; Y93.9 Activity, unspecified; Y99.9 Unspecified external cause status; Y92.89 Other specified places as the place of occurrence of the external cause; R29.6 Repeated falls; Z85.46 Personal history of malignant neoplasm of prostate
CPT/HCPCS: 36415; 36600; 70450; 71045; 73552; 73590; 73610; 73630; 73700; 80048; 80202; 81001; 82803; 85025; 85610; 87040; 87070; 87186; 87205; 87426; 87640; 97110; 97162; 97166; 97530; 97535; 99285; J7030; J7040; J7050; A4216

== ENCOUNTER → 2022-04-10 | Outpatient (REF) | payer SELFPAY ==
[2022-04-10 09:20] LABS: Prothrombin Time (Protime)PT. 30.9 SECONDS (11.7-14.9)
[2022-04-10 10:09] LABS: Anion Gap 7 (5-15); BUN 14 mg/dL (7-18); BUN/Creat Ratio 33.9 RATIO (10-20); Chloride 108 mmol/L (98-107); Creatinine, Serum 0.41 mg/dL (0.70-1.30); EST Glomerular Filtration Rate 215 mL/min (>60); Est Glom Filt Rate - Afr Amer 260 mL/min (>60); Glucose 103 mg/dL (74-106); Potassium 3.6 mmol/L (3.5-5.1); Sodium Level 139 mmol/L (136-145)
[2022-04-11 04:23] LABS: Absolute Neutrophil Count 3.6 X10^3/uL (2.0-7.7); Basophil# 0.03 X10^3/uL; Basophil% 0.6 % (0-1); Eosinophil# 0.17 X10^3/uL; Eosinophils% 3.4 % (0-5); Hematocrit 30.8 % (40-54); Hemoglobin 9.9 g/dL (13.0-16.5); Lymphocyte % 14.2 % (19-41); Mean Corp Hgb Conc 32.1 g/dL (32-36); Mean Corpuscular Hgb 28.9 pg (27.0-32.0); Mean Corpuscular Volume 90.1 fL (80-94); Mean Platelet Vol. 10.1 fl (6.2-12.0); Monocyte# 0.43 X10^3/uL; Monocyte% 8.7 % (0-10); NRBC Flagged by Analyzer 0 % (0-5); Neutrophil # 3.58 X10^3/uL (2.7-7.7); Neutrophil % 72.7 % (47-70); Platelet Count 152 K/mm3 (150-450); RBC Distribution Width CV 13.9 % (11.6-14.6); RBC Distribution Width SD 45.5 fl (35.1-43.9); Red Blood Count 3.42 M/mm3 (4.6-6.2); White Blood Count 4.9 K/mm3 (4.4-11.0)
== END | disposition home or self-care (01) ==
LOC: OLS.SW500 05:00
PROVIDERS: PCP Family Medicine Geriatric Medicine; Referring Provider Family Medicine; Visit Provider Family Medicine
DX: I10 Essential (primary) hypertension (principal); E78.5 Hyperlipidemia, unspecified; D64.9 Anemia, unspecified; Z79.01 Long term (current) use of anticoagulants
CPT/HCPCS: 36415; 80048; 85025; 85610

== ENCOUNTER → 2022-04-16 | Outpatient (REF) | payer SELFPAY ==
[2022-04-16 09:26] LABS: INR Fingerstick 3.5; Prothrombin Time Fingerstick 39.8 SEC (11.7-14.9)
== END | disposition home or self-care (01) ==
LOC: OLS.SW500 05:00
PROVIDERS: PCP Family Medicine Geriatric Medicine; Visit Provider Family Medicine
DX: Z79.01 Long term (current) use of anticoagulants (principal)
CPT/HCPCS: 36416; 85610

== ENCOUNTER → 2022-04-21 | Outpatient (REF) | payer SELFPAY ==
[2022-04-21 08:47] LABS: Hematocrit 34.3 % (40-54); Hemoglobin 10.8 g/dL (13.0-16.5); Mean Corp Hgb Conc 31.5 g/dL (32-36); Mean Corpuscular Hgb 28.3 pg (27.0-32.0); Mean Platelet Vol. 9.1 fl (6.2-12.0); Platelet Count 241 K/mm3 (150-450); RBC Distribution Width CV 14.6 % (11.6-14.6); RBC Distribution Width SD 47.8 fl (35.1-43.9); Red Blood Count 3.81 M/mm3 (4.6-6.2); White Blood Count 4.8 K/mm3 (4.4-11.0)
[2022-04-21 09:02] LABS: ALB/GLOB Ratio 0.7 RATIO (0.9-2.4); AST(SGOT) 18 U/L (15-37); Alanine Aminotransfer ALT/SGPT 18 U/L (16-61); Albumin, Serum 2.3 g/dL (3.2-5.0); Alkaline Phosphatase 121 U/L (45-117); Anion Gap 5 (5-15); BUN 10 mg/dL (7-18); BUN/Creat Ratio 18.1 RATIO (10-20); Calcium,Total 8.1 mg/dL (8.5-10.1); Chloride 109 mmol/L (98-107); Cholesterol 107 mg/dL (200); Creatinine, Serum 0.55 mg/dL (0.70-1.30); EST Glomerular Filtration Rate 154 mL/min (>60); Est Glom Filt Rate - Afr Amer 186 mL/min (>60); Globulin 3.2 g/dL (2.2-4.2); Glucose 84 mg/dL (74-106); High Density Lipoprotein 27 mg/dL; Protein, Total 5.5 g/dL (6.4-8.2); Sodium Level 142 mmol/L (136-145); Triglycerides 89 mg/dL; Very Low Density Lipoprotein 18 mg/dL (5-40)
[2022-04-21 12:12] LABS: International Normalized Ratio 3.3; Prothrombin Time (Protime)PT. 33.1 SECONDS (11.7-14.9)
== END | disposition home or self-care (01) ==
LOC: OLS.SW500 04:00
PROVIDERS: PCP Family Medicine Geriatric Medicine; Referring Provider Family Medicine; Visit Provider Family Medicine
DX: E78.5 Hyperlipidemia, unspecified (principal); K92.2 Gastrointestinal hemorrhage, unspecified; L03.116 Cellulitis of left lower limb; Z79.01 Long term (current) use of anticoagulants
CPT/HCPCS: 36415; 80053; 80061; 85027; 85610

== ENCOUNTER → 2022-04-28 | Outpatient (REF) | payer SELFPAY ==
[2022-04-28 08:25] LABS: Prothrombin Time Fingerstick 23.9 SEC (11.7-14.9)
== END | disposition home or self-care (01) ==
LOC: OLS.SW500 05:00
PROVIDERS: PCP Family Medicine Geriatric Medicine; Referring Provider Family Medicine; Visit Provider Family Medicine
DX: I48.91 Unspecified atrial fibrillation (principal)
CPT/HCPCS: 36416; 85610

== ENCOUNTER → 2022-05-09 | Outpatient (REF) | payer MEDICARE, SELFPAY ==
[2022-05-09 07:11] LABS: INR Fingerstick 2.5; Prothrombin Time Fingerstick 28.9 SEC (11.7-14.9)
== END | disposition home or self-care (01) ==
LOC: OLS.SW500 05:00
PROVIDERS: PCP Family Medicine Geriatric Medicine; Visit Provider Family Medicine
DX: Z79.01 Long term (current) use of anticoagulants (principal)
CPT/HCPCS: 36416; 85610

== ENCOUNTER → 2022-05-16 | Outpatient (REF) | payer MEDICARE, SELFPAY ==
[2022-05-16 07:01] LABS: INR Fingerstick 2.5; Prothrombin Time Fingerstick 29.1 SEC (11.7-14.9)
== END | disposition home or self-care (01) ==
LOC: OLS.SW500 04:00
PROVIDERS: PCP Family Medicine Geriatric Medicine; Visit Provider Family Medicine
DX: I48.91 Unspecified atrial fibrillation (principal)
CPT/HCPCS: 36416; 85610

== ENCOUNTER → 2022-05-23 | Outpatient (REF) | payer MEDICARE, SELFPAY ==
[2022-05-23 07:40] LABS: INR Fingerstick 2.5; Prothrombin Time Fingerstick 29.4 SEC (11.7-14.9)
== END ==
LOC: OLS.SW500 05:00
PROVIDERS: PCP Family Medicine Geriatric Medicine; Visit Provider Family Medicine
DX: I48.91 Unspecified atrial fibrillation (principal)
CPT/HCPCS: 36416; 85610

== ENCOUNTER → 2022-05-30 05:00 | Outpatient (REF) | payer MEDICARE, SELFPAY ==
[2022-05-30 07:45] LABS: INR Fingerstick 2.2; Prothrombin Time Fingerstick 25.4 SEC (11.7-14.9)
== END ==
LOC: OLS.SW500 05:00
PROVIDERS: PCP Family Medicine Geriatric Medicine; Visit Provider Family Medicine
DX: I48.91 Unspecified atrial fibrillation (principal); Z79.01 Long term (current) use of anticoagulants
CPT/HCPCS: 36416; 85610

== ENCOUNTER → 2022-06-06 | Outpatient (REF) | payer MEDICARE, SELFPAY ==
[2022-06-06 08:35] LABS: Prothrombin Time Fingerstick 23.7 SEC (11.7-14.9)
== END | disposition home or self-care (01) ==
LOC: OLS.SW500 05:00
PROVIDERS: PCP Family Medicine Geriatric Medicine; Visit Provider Family Medicine
DX: I48.91 Unspecified atrial fibrillation (principal); Z79.01 Long term (current) use of anticoagulants
CPT/HCPCS: 36416; 85610

== ENCOUNTER → 2022-06-13 | Outpatient (REF) | payer MEDICARE, SELFPAY ==
[2022-06-13 07:00] LABS: INR Fingerstick 2.5; Prothrombin Time Fingerstick 29.2 SEC (11.7-14.9)
== END ==
LOC: OLS.SW500 04:00
PROVIDERS: PCP Family Medicine Geriatric Medicine; Referring Provider Family Medicine; Visit Provider Family Medicine
DX: Z79.01 Long term (current) use of anticoagulants (principal)
CPT/HCPCS: 36416; 85610

== ENCOUNTER → 2022-06-20 | Outpatient (REF) | payer MEDICARE, SELFPAY ==
[2022-06-20 08:06] LABS: INR Fingerstick 2.7; Prothrombin Time Fingerstick 31.6 SEC (11.7-14.9)
== END ==
LOC: OLS.SW500 05:00
PROVIDERS: PCP Family Medicine Geriatric Medicine; Visit Provider Family Medicine
DX: Z79.01 Long term (current) use of anticoagulants (principal)
CPT/HCPCS: 36416; 85610

== ENCOUNTER → 2022-06-27 | Outpatient (REF) | payer MEDICARE, SELFPAY ==
[2022-06-27 09:01] LABS: Prothrombin Time (Protime)PT. 39.5 SECONDS (11.7-14.9)
[2022-06-27 09:46] LABS: International Normalized Ratio 4.1
== END ==
LOC: OLS.SW500 06:00
PROVIDERS: PCP Family Medicine Geriatric Medicine; Visit Provider Family Medicine
DX: I48.91 Unspecified atrial fibrillation (principal)
CPT/HCPCS: 36415; 85610

== ENCOUNTER → 2022-06-30 | Outpatient (REF) | payer MEDICARE, SELFPAY ==
[2022-06-30 08:20] LABS: INR Fingerstick 2.3; Prothrombin Time Fingerstick 26.8 SEC (11.7-14.9)
== END ==
LOC: OLS.SW500 05:00
PROVIDERS: PCP Family Medicine Geriatric Medicine; Visit Provider Family Medicine
DX: Z79.01 Long term (current) use of anticoagulants (principal)
CPT/HCPCS: 36416; 85610

== ENCOUNTER → 2022-07-04 | Outpatient (REF) | payer MEDICARE, SELFPAY ==
[2022-07-04 07:40] LABS: INR Fingerstick 2.8; Prothrombin Time Fingerstick 32.5 SEC (11.7-14.9)
== END ==
LOC: OLS.SW500 05:00
PROVIDERS: PCP Family Medicine Geriatric Medicine; Visit Provider Family Medicine
DX: I48.91 Unspecified atrial fibrillation (principal)
CPT/HCPCS: 36416; 85610

== ENCOUNTER → 2022-07-11 | Outpatient (REF) | payer MEDICARE, SELFPAY ==
[2022-07-11 07:46] LABS: INR Fingerstick 3.5; Prothrombin Time Fingerstick 39.6 SEC (11.7-14.9)
== END ==
LOC: OLS.SW500 05:00
PROVIDERS: PCP Family Medicine Geriatric Medicine; Visit Provider Family Medicine
DX: I48.91 Unspecified atrial fibrillation (principal); Z79.01 Long term (current) use of anticoagulants
CPT/HCPCS: 36416; 85610

== ENCOUNTER → 2022-07-18 | Outpatient (REF) | payer MEDICARE, SELFPAY ==
[2022-07-18 10:50] LABS: INR Fingerstick 2.4; Prothrombin Time Fingerstick 27.7 SEC (11.7-14.9)
== END ==
LOC: OLS.SW500 05:00
PROVIDERS: PCP Family Medicine Geriatric Medicine; Visit Provider Family Medicine
DX: I48.91 Unspecified atrial fibrillation (principal); D64.9 Anemia, unspecified; L03.90 Cellulitis, unspecified; E87.6 Hypokalemia
CPT/HCPCS: 36416; 85610

== ENCOUNTER → 2022-07-22 | Outpatient (REF) | payer MEDICARE, SELFPAY ==
[2022-07-22 08:38] LABS: Hematocrit 33.5 % (40-54); Hemoglobin 11.3 g/dL (13.0-16.5); Mean Corp Hgb Conc 33.7 g/dL (32-36); Mean Corpuscular Hgb 30.3 pg (27.0-32.0); Mean Corpuscular Volume 89.8 fL (80-94); Mean Platelet Vol. 9.1 fl (6.2-12.0); Platelet Count 127 K/mm3 (150-450); RBC Distribution Width CV 13.7 % (11.6-14.6); RBC Distribution Width SD 44.8 fl (35.1-43.9); Red Blood Count 3.73 M/mm3 (4.6-6.2); White Blood Count 5.4 K/mm3 (4.4-11.0)
[2022-07-22 08:57] LABS: ALB/GLOB Ratio 0.8 RATIO (0.9-2.4); AST(SGOT) 12 U/L (15-37); Alanine Aminotransfer ALT/SGPT 16 U/L (16-61); Albumin, Serum 2.6 g/dL (3.2-5.0); Alkaline Phosphatase 101 U/L (45-117); Anion Gap 6 (5-15); BUN 13 mg/dL (7-18); BUN/Creat Ratio 25.1 RATIO (10-20); Calcium,Total 8.8 mg/dL (8.5-10.1); Chloride 108 mmol/L (98-107); Cholesterol 101 mg/dL (200); Creatinine, Serum 0.52 mg/dL (0.70-1.30); EST Glomerular Filtration Rate 165 mL/min (>60); Est Glom Filt Rate - Afr Amer 200 mL/min (>60); Globulin 3.4 g/dL (2.2-4.2); Glucose 88 mg/dL (74-106); High Density Lipoprotein 33 mg/dL; Potassium 3.6 mmol/L (3.5-5.1); Sodium Level 143 mmol/L (136-145); Triglycerides 82 mg/dL; Very Low Density Lipoprotein 16 mg/dL (5-40)
== END ==
LOC: OLS.SW500 05:00
PROVIDERS: PCP Family Medicine Geriatric Medicine; Visit Provider Family Medicine
DX: I48.91 Unspecified atrial fibrillation (principal); L03.90 Cellulitis, unspecified; E78.5 Hyperlipidemia, unspecified
CPT/HCPCS: 36415; 80053; 80061; 85027

== ENCOUNTER → 2022-07-23 | Outpatient (REF) | payer MEDICARE, SELFPAY ==
[2022-07-23 08:40] LABS: Hematocrit 33.7 % (40-54); Hemoglobin 11.1 g/dL (13.0-16.5); Mean Corp Hgb Conc 32.9 g/dL (32-36); Mean Corpuscular Volume 91.1 fL (80-94); Mean Platelet Vol. 9.4 fl (6.2-12.0); Platelet Count 138 K/mm3 (150-450); RBC Distribution Width CV 13.9 % (11.6-14.6); RBC Distribution Width SD 46.3 fl (35.1-43.9); White Blood Count 4.9 K/mm3 (4.4-11.0)
[2022-07-23 08:56] LABS: ALB/GLOB Ratio 0.7 RATIO (0.9-2.4); AST(SGOT) 15 U/L (15-37); Alanine Aminotransfer ALT/SGPT 15 U/L (16-61); Albumin, Serum 2.6 g/dL (3.2-5.0); Alkaline Phosphatase 124 U/L (45-117); Anion Gap 5 (5-15); BUN 21 mg/dL (7-18); Calcium,Total 8.7 mg/dL (8.5-10.1); Chloride 109 mmol/L (98-107); Cholesterol 102 mg/dL (200); Creatinine, Serum 0.55 mg/dL (0.70-1.30); EST Glomerular Filtration Rate 153 mL/min (>60); Est Glom Filt Rate - Afr Amer 186 mL/min (>60); Globulin 3.6 g/dL (2.2-4.2); Glucose 90 mg/dL (74-106); High Density Lipoprotein 34 mg/dL; Potassium 3.8 mmol/L (3.5-5.1); Protein, Total 6.2 g/dL (6.4-8.2); Sodium Level 144 mmol/L (136-145); Triglycerides 73 mg/dL; Very Low Density Lipoprotein 15 mg/dL (5-40)
== END ==
LOC: OLS.SW500 05:00
PROVIDERS: PCP Family Medicine Geriatric Medicine; Visit Provider Family Medicine
DX: I48.91 Unspecified atrial fibrillation (principal); E78.5 Hyperlipidemia, unspecified
CPT/HCPCS: 36415; 80053; 80061; 85027

== ENCOUNTER → 2022-07-25 | Outpatient (REF) | payer MEDICARE, SELFPAY ==
[2022-07-25 07:55] LABS: INR Fingerstick 2.4; Prothrombin Time Fingerstick 28.3 SEC (11.7-14.9)
== END ==
LOC: OLS.SW500 05:00
PROVIDERS: PCP Family Medicine Geriatric Medicine; Visit Provider Family Medicine
DX: I48.91 Unspecified atrial fibrillation (principal); Z79.01 Long term (current) use of anticoagulants
CPT/HCPCS: 36416; 85610

== ENCOUNTER → 2022-08-01 | Outpatient (REF) | payer MEDICARE, SELFPAY | LOC: OLS.SW500 05:00 | PROVIDERS: PCP Family Medicine Geriatric Medicine; Visit Provider Family Medicine | DX: I48.91 Unspecified atrial fibrillation (principal) | CPT/HCPCS: 36416; 85610 ==

== ENCOUNTER → 2022-08-08 | Outpatient (REF) | payer MEDICARE, SELFPAY ==
[2022-08-08 07:36] LABS: INR Fingerstick 2.4; Prothrombin Time Fingerstick 28.4 SEC (11.7-14.9)
== END ==
LOC: OLS.SW500 05:00
PROVIDERS: PCP Family Medicine Geriatric Medicine; Visit Provider Family Medicine
DX: Z79.01 Long term (current) use of anticoagulants (principal)
CPT/HCPCS: 36416; 85610

== ENCOUNTER → 2022-08-15 | Outpatient (REF) | payer MEDICARE, SELFPAY ==
[2022-08-15 07:35] LABS: INR Fingerstick 2.8; Prothrombin Time Fingerstick 31.9 SEC (11.7-14.9)
== END ==
LOC: OLS.SW500 05:00
PROVIDERS: PCP Family Medicine Geriatric Medicine; Visit Provider Family Medicine
DX: I48.91 Unspecified atrial fibrillation (principal)
CPT/HCPCS: 36416; 85610

== ENCOUNTER → 2022-09-05 | Outpatient (REF) | payer MEDICARE, SELFPAY ==
[2022-09-05 07:41] LABS: INR Fingerstick 2.9; Prothrombin Time Fingerstick 33.1 SEC (11.7-14.9)
== END ==
LOC: OLS.SW 05:00
PROVIDERS: PCP Family Medicine Geriatric Medicine; Visit Provider Family Medicine
DX: Z79.01 Long term (current) use of anticoagulants (principal)
CPT/HCPCS: 36416; 85610

== ENCOUNTER → 2022-09-26 | Outpatient (REF) | payer MEDICARE, SELFPAY ==
[2022-09-26 08:20] LABS: INR Fingerstick 2.3
== END ==
LOC: OLS.SW 05:00
PROVIDERS: PCP Family Medicine Geriatric Medicine; Visit Provider Family Medicine
DX: Z79.01 Long term (current) use of anticoagulants (principal)
CPT/HCPCS: 36416; 85610

== ENCOUNTER → 2022-10-10 | Outpatient (REF) | payer MEDICARE, SELFPAY ==
[2022-10-10 09:00] LABS: INR Fingerstick 2.2; Prothrombin Time Fingerstick 25.7 SEC (11.7-14.9)
== END ==
LOC: OLS.SW 08:28
PROVIDERS: PCP Family Medicine Geriatric Medicine; Visit Provider Family Medicine
DX: Z79.899 Other long term (current) drug therapy (principal); Z79.01 Long term (current) use of anticoagulants
CPT/HCPCS: 36416; 85610

== ENCOUNTER → 2022-10-22 | Outpatient (REF) | payer MEDICARE, SELFPAY ==
[2022-10-22 08:35] LABS: Hematocrit 35.1 % (40-54); Hemoglobin 11.6 g/dL (13.0-16.5); Mean Corpuscular Hgb 30.5 pg (27.0-32.0); Mean Corpuscular Volume 92.4 fL (80-94); Mean Platelet Vol. 9.7 fl (6.2-12.0); Platelet Count 120 K/mm3 (150-450); RBC Distribution Width CV 12.9 % (11.6-14.6); RBC Distribution Width SD 43.4 fl (35.1-43.9); White Blood Count 4.4 K/mm3 (4.4-11.0)
[2022-10-22 08:54] LABS: ALB/GLOB Ratio 0.9 RATIO (0.9-2.4); AST(SGOT) 20 U/L (15-37); Alanine Aminotransfer ALT/SGPT 18 U/L (16-61); Albumin, Serum 2.8 g/dL (3.2-5.0); Alkaline Phosphatase 105 U/L (45-117); Anion Gap 6 (5-15); BUN 14 mg/dL (7-18); BUN/Creat Ratio 25.5 RATIO (10-20); Calcium,Total 8.6 mg/dL (8.5-10.1); Chloride 108 mmol/L (98-107); Cholesterol 92 mg/dL (200); Creatinine, Serum 0.55 mg/dL (0.70-1.30); EST Glomerular Filtration Rate 154 mL/min (>60); Est Glom Filt Rate - Afr Amer 187 mL/min (>60); Globulin 3.2 g/dL (2.2-4.2); Glucose 87 mg/dL (74-106); High Density Lipoprotein 33 mg/dL; Potassium 3.5 mmol/L (3.5-5.1); Sodium Level 141 mmol/L (136-145); Triglycerides 60 mg/dL; Very Low Density Lipoprotein 12 mg/dL (5-40)
== END ==
LOC: OLS.SW 05:00
PROVIDERS: PCP Family Medicine Geriatric Medicine; Visit Provider Family Medicine
DX: E78.5 Hyperlipidemia, unspecified (principal)
CPT/HCPCS: 36415; 80053; 80061; 85027

== ENCOUNTER → 2022-10-24 | Outpatient (REF) | payer MEDICARE, SELFPAY ==
[2022-10-24 07:56] LABS: INR Fingerstick 1.8; Prothrombin Time Fingerstick 21.4 SEC (11.7-14.9)
== END ==
LOC: OLS.SW 05:00
PROVIDERS: PCP Family Medicine Geriatric Medicine; Visit Provider Family Medicine
DX: Z79.01 Long term (current) use of anticoagulants (principal)
CPT/HCPCS: 36416; 85610

== ENCOUNTER → 2022-11-07 | Outpatient (CLI) | payer MEDICARE, SELFPAY ==
[2022-11-07 13:42] LABS: Absolute Lymphocyte Count 0.78 X10^3/uL (0.83-4.51); Absolute Neutrophil Count 3.9 X10^3/uL (2.0-7.7); Basophil# 0.02 X10^3/uL; Basophil% 0.4 % (0-1); Eosinophil# 0.17 X10^3/uL; Eosinophils% 3.2 % (0-5); Hematocrit 34.8 % (40-54); Hemoglobin 11.4 g/dL (13.0-16.5); Lymphocyte # 0.78 X10^3/ul (0.83-4.51); Lymphocyte % 14.8 % (19-41); Mean Corp Hgb Conc 32.8 g/dL (32-36); Mean Corpuscular Hgb 30.7 pg (27.0-32.0); Mean Corpuscular Volume 93.8 fL (80-94); Mean Platelet Vol. 9.4 fl (6.2-12.0); Monocyte# 0.38 X10^3/uL; Monocyte% 7.2 % (0-10); NRBC Flagged by Analyzer 0 % (0-5); Neutrophil # 3.91 X10^3/uL (2.7-7.7); Neutrophil % 74.2 % (47-70); Platelet Count 183 K/mm3 (150-450); RBC Distribution Width SD 44.8 fl (35.1-43.9); Red Blood Count 3.71 M/mm3 (4.6-6.2); White Blood Count 5.3 K/mm3 (4.4-11.0)
[2022-11-07 13:54] LABS: Vitamin D,25 Hydroxy 57.6 ng/mL
[2022-11-07 14:01] LABS: ALB/GLOB Ratio 0.8 RATIO (0.9-2.4); AST(SGOT) 13 U/L (15-37); Alanine Aminotransfer ALT/SGPT 14 U/L (16-61); Alkaline Phosphatase 107 U/L (45-117); Anion Gap 8 (5-15); BUN 17 mg/dL (7-18); BUN/Creat Ratio 19.9 RATIO (10-20); Calcium,Total 8.9 mg/dL (8.5-10.1); Chloride 110 mmol/L (98-107); Creatinine, Serum 0.85 mg/dL (0.70-1.30); EST Glomerular Filtration Rate 93 mL/min (>60); Est Glom Filt Rate - Afr Amer 113 mL/min (>60); Globulin 3.9 g/dL (2.2-4.2); Glucose 108 mg/dL (74-106); Potassium 3.7 mmol/L (3.5-5.1); Protein, Total 6.9 g/dL (6.4-8.2); Sodium Level 144 mmol/L (136-145); Thyroid Stim Hormone (TSH) 2.99 uIU/mL (0.358-3.74)
== END | disposition home or self-care (01) ==
LOC: POLAB3 11:28
PROVIDERS: PCP Family Medicine Geriatric Medicine; Visit Provider Family Medicine Geriatric Medicine
DX: E55.9 Vitamin D deficiency, unspecified (principal); I10 Essential (primary) hypertension
CPT/HCPCS: 36415; 80053; 82306; 84443; 85025

== ENCOUNTER 2022-12-01 19:39 | Observation (INO) | payer MEDICARE, SELFPAY ==
[2022-12-01 19:40] VITALS: BP 134/73; PULSE 85; RESP 18; TEMP 36.2; O2SAT 95; BMI 37.9
--- NOTE | 2022-12-01 21:39 | EDS_ITS ---
HPI HPI - Fall History of Present Illness Chief Complaint: Fall Narrative Narrative: 77-year-old male presenting with lower back pain. He states that recently broke his left ankle and has been doing rehab. He is trying to get around well but is not resting and up between walking. He states that he became weak and kind of fell down to the ground slowly. He was able to catch himself. Later in the day he states he was doing dishes and he started to have pain in his back again and was able to lower himself down slowly again. He did land on his back. He states that he is only taking Tylenol twice a day. He has not taken anything else for pain. He has not tried ice or heat. He has somebody at home who can help him get up and down his stairs but he states that EMS made him come to the emergency room because they had run on twice a day for falls. Patient denies fever, chills, shortness of breath. He denies chest pain or palpitations. He denies abdominal pain or constipation. He states he is eating and drinking normally. He does not believe he is dehydrated. Patient denies any black or bloody stools. Patient is on Coumadin for history of A. fib. [facility] Medical History Ankle fracture, left Atherosclerotic heart disease of [place] coronary artery without angina pectoris Closed fracture of left hip Closed left humeral fracture Essential hypertension Fall Former tobacco use Fracture of ninth thoracic vertebra (12/27/18) History of Clostridium difficile infection (01/09/19) History of subdural hematoma (post traumatic) (12/27/18) Hyperlipidemia shelter (current) use of anticoagulants Longstanding persistent atrial fibrillation Onycholysis Sepsis Traumatic hemothorax (12/30/18) Venous insufficiency (chronic) (peripheral) Home Medications atorvastatin 80 mg tablet 80 mg PO QHS cholesterol 04/02/16 [History Last Taken 11/24/21 22:00 80 mg] potassium chloride 20 mEq tablet,extended release 20 meq PO DAILY supplement 12/03/18 [History Last Taken 11/25/21 10:00 20 meq] cetirizine 10 mg capsule 10 mg PO DAILY Allergy 12/27/18 [History Last Taken 11/25/21 10:00 10 mg] metoprolol tartrate 50 mg tablet 50 mg PO BID bp 05/07/19 [History Last Taken 11/25/21 10:00 50 mg] cholecalciferol (vitamin D3) 1,250 mcg (50,000 unit) capsule 1,000 unit PO DAILY supplement 10/29/20 [History Last Taken 11/24/21 22:00 1000 units] acetaminophen 500 mg tablet 1,000 mg PO Q8 #0 tabs 12/30/21 [Rx Last Taken Unknown] citalopram 10 mg tablet 10 mg PO QHS 12/01/22 [History Last Taken Unknown] cromolyn 5.2 mg/spray (4 %) nasal spray (Nasalcrom) 2 spray intranasal DAILY 12/01/22 [History Last Taken Unknown] furosemide 40 mg tablet 40 mg PO DAILY 12/01/22 [History Last Taken Unknown] losartan 100 mg tablet (Cozaar) 100 mg PO DAILY 12/01/22 [History Last Taken Unknown] terazosin 10 mg capsule 10 mg PO QPM 12/01/22 [History Last Taken Unknown] warfarin 5 mg tablet 5 mg PO DAILY #90 tabs 12/01/22 [Rx Last Taken Unknown] xtendi 160 mg PO/SL QPM 12/01/22 [History Last Taken Unknown] Allergy/AdvReac Type Severity Reaction Status Date / Time amiodarone AdvReac Intermediate It did not Verified 12/01/22 19:44 work, also bad dreams and neuropathy Family History Father , Age 57 Myocardial infarction CAD (coronary artery disease) ETOH abuse Mother , Age 47, of bone cancer Bone cancer Brother , age 45, of AIDS AIDS (acquired immune deficiency syndrome) Surgical History H/O cervical spine surgery (01/2020) H/O coronary artery bypass surgery (11/26/98) History of left heart catheterization (11/26/98) History of left hip hemiarthroplasty History of thoracic spinal fusion (12/30/18) Social History household members: none Smoking Status: Former smoker alcohol intake: never substance use type: does not use ROS ROS ED Constitutional Constitutional ED: Denies chills or fever(s) Eyes Eyes: Denies change in vision ENT ENT ED: Denies rhinorrhea or sore throat Cardiovascular Cardiovascular: Denies chest pain or palpitations Respiratory/Chest Respiratory/Chest: Denies cough or dyspnea Gastrointestinal Gastrointestinal: Denies abdominal pain or constipation Genitourinary Genitourinary ED: Denies dysuria or hematuria Musculoskeletal Musculoskeletal: Reports back pain Integumentary Denies abscess or Abrasions Neurologic Neurologic: Denies headache(s) Psychiatric Psychiatric: Denies anxiety or depression EXAM Physical Exam Const Vital Signs: 12/01/22 19:40 12/01/22 22:44 Temperature 97.2 F L Temperature Source Temporal Pulse Rate 85 Respiratory Rate 18 Respiratory Effort Normal Blood Pressure 134/73 H Blood Pressure Mean 93 Pulse Ox 95 Oxygen Delivery Method Room Air Positive well nourished General Appearance ED: NAD HEENT Reports normocephalic atraumatic Eyes PERRL and EOMs intact bilaterally Neck full ROM and no lymphadenopathy Chest Wall inspection of chest normal and palpation of chest normal Resp normal respiratory effort and no retractions Cardio regular rate and regular rhythm Back/Spine Back/Spine Narrative: Diffuse lumbar tenderness bilaterally. No midline deformity or step-off Neuro oriented x3 and CN's II-XII intact bilaterally Sensorium / Orientation: alert Psych mental status grossly normal MDM MDM MDM Narrative Medical decision making narrative: Patient presenting with weakness and 2 falls today. He states that EMS has had to pick him up twice. He does have somebody that helps him at home but he does not think that she is making up to help him in the state that he has had. He is having worsening back pain status post fall. He states he does feel like he is too weak and unable to care for himself. He has a history of this in the past. Has history of lumbar compression fracture at L4. Patient also has significant history of A. fib on Coumadin. On initial assessment patient was medicated with Norflex and Toradol. Obtain x-rays of the lumbar spine which show a compression fracture at L4 unchanged. At this point he feels he is unable to get up and ambulate secondary to pain. He was having difficulty even sitting up in the bed. Differential at this point includes but is not limited to new lumbar compression fracture, worsening L4 lumbar compression fracture, dehydration, anemia, electrolyte abnormalities. CBC to assess white blood cell count, hemoglobin, differential. White blood cell count normal at 6.7. Hemoglobin stable 11.4. Platelets slightly low at 124 this is in a range of normal for him. INR was assessed today due to history of A. fib on Coumadin. And he is at 3.4 today. Renal function and electrolytes were assessed and are normal. Glucose slightly elevated 123. No anion gap. At this point since patient is unable to ambulate I did speak to the hospitalist for admission. Patient admitted in stable condition. Impression: 1. generalized weakness 2. Falls 3. Lumbar contusion 4. History of L4 compression Lab Data Labs: Laboratory Results - last 24 hr 12/01/22 12/01/22 12/01/22 22:55 22:55 22:55 WBC 6.7 RBC 3.78 L Hgb 11.4 L Hct 34.4 L MCV 91.0 MCH 30.2 MCHC 33.1 RDW Std Deviation 45.7 H RDW Coeff of Dick 13.6 Plt Count 124 L MPV 8.8 Immature Gran % (Auto) 0.500 Neut % (Auto) 80.2 H Lymph % (Auto) 12.0 L [place] % (Auto) 5.9 Eos % (Auto) 1.1 Baso % (Auto) 0.3 Absolute Neuts (auto) 5.3 Absolute Lymphs (auto) 0.80 L Nucleated RBC % 0 PT 34.2 H INR 3.4 Sodium 141 Potassium 3.6 Chloride 106 Carbon Dioxide 27.0 Anion Gap 8 BUN 14 Creatinine 0.78 Estim Creat Clear Calc 70.06 Est GFR (MDRD) Af Amer 125 Est GFR (MDRD) Non-Af 103 BUN/Creatinine Ratio 18.0 Glucose 123 H Calcium 8.7 Radiography Diagnostic Testing: Clinical Impression(s) from Imaging Studies Lumbar Spine X-Ray 12/01/22 22:20 IMPRESSION: Compression fracture L4 unchanged. Spondylosis. Electronically Signed: Husam Munoz MD at 22:37 EST , Discharge Plan Triage Chief Complaint: Fall ED Provider: Corwin Cohen Dx/Rx/DC Orders Prescriptions: No Action potassium chloride 20 mEq tablet extended release 20 meq PO DAILY cholecalciferol (vitamin D3) 1,250 mcg (50,000 unit) capsule 1,000 unit PO DAILY metoprolol tartrate 50 mg tablet 50 mg PO BID atorvastatin 80 MG tablet 80 mg PO QHS cetirizine 10 MG capsule 10 mg PO DAILY acetaminophen 500 mg Tablet 1,000 mg PO Q8 Qty: 0 0RF furosemide 40 mg tablet 40 mg PO DAILY Label Comments: TAKE 1 TABLET BY MOUTH EVERY DAY cromolyn [Nasalcrom] 5.2 mg/spray (4 %) [place],Non-Aerosol 2 spray INTRANASAL DAILY citalopram 10 mg tablet 10 mg PO QHS Label Comments: TAKE 1 TABLET BY MOUTH EVERY DAY losartan [Cozaar] 100 mg tablet 100 mg PO DAILY Label Comments: TAKE 1 TABLET BY MOUTH EVERY DAY terazosin 10 mg capsule 10 mg PO QPM Label Comments: TAKE 1 CAPSULE BY MOUTH EVERYDAY AT BEDTIME xtendi 160 mg PO/SL QPM warfarin 5 mg tablet 5 mg PO DAILY Qty: 90 3RF Rx Instructions: hold 12/01, 12/02 for elevated inr. Primary Care Provider: James Pisano Chi Referrals: James Pisano Chi, MD [Primary Care Provider] -
[2022-12-01] MEDS: Ketorolac 15 MG/ML Vial IM (21:58)
[2022-12-01] MEDS: Orphenadrine 60 MG/2 ML Ampul IM (21:59)
--- NOTE | 2022-12-01 22:20 | RAD_ITS ---
STUDY: X-RAY - LUMBAR SPINE REASON FOR EXAM: Male, 77 years old. back pain TECHNIQUE: 3 view(s) of the lumbar spine were obtained. COMPARISON: Lumbar spine radiograph FINDINGS: Compression fracture of L4 unchanged. There is no substantial scoliosis. There is a normal alignment of the vertebrae. There is multilevel endplate spondylosis of the lumbar vertebrae. There is multi-level degenerative disc disease with multi-level disc space narrowing. Posterior interbody fusion rods and pedicular screws at T9-10 and 11. The soft tissue structures are unremarkable. RAD/Lumbar Spine 2 or 3 Views IMPRESSION: Compression fracture L4 unchanged. Spondylosis. Electronically Signed: Husam Munoz MD at 22:37 EST ,
[2022-12-01] MEDS: Ondansetron 4 MG/2 ML Vial IV (22:57)
[2022-12-01] MEDS: Acetaminophen 500 MG Tablet 1000 MG PO (23:01)
[2022-12-01 23:03] LABS: Absolute Neutrophil Count 5.3 X10^3/uL (2.0-7.7); Basophil# 0.02 X10^3/uL; Basophil% 0.3 % (0-1); Eosinophil# 0.07 X10^3/uL; Eosinophils% 1.1 % (0-5); Hematocrit 34.4 % (40-54); Hemoglobin 11.4 g/dL (13.0-16.5); Mean Corp Hgb Conc 33.1 g/dL (32-36); Mean Corpuscular Hgb 30.2 pg (27.0-32.0); Mean Platelet Vol. 8.8 fl (6.2-12.0); Monocyte# 0.39 X10^3/uL; Monocyte% 5.9 % (0-10); NRBC Flagged by Analyzer 0 % (0-5); Neutrophil # 5.34 X10^3/uL (2.7-7.7); Neutrophil % 80.2 % (47-70); Platelet Count 124 K/mm3 (150-450); RBC Distribution Width CV 13.6 % (11.6-14.6); RBC Distribution Width SD 45.7 fl (35.1-43.9); Red Blood Count 3.78 M/mm3 (4.6-6.2); White Blood Count 6.7 K/mm3 (4.4-11.0)
[2022-12-01 23:13] LABS: International Normalized Ratio 3.4; Prothrombin Time (Protime)PT. 34.2 SECONDS (11.7-14.9)
[2022-12-01 23:20] LABS: Anion Gap 8 (5-15); BUN 14 mg/dL (7-18); Calcium,Total 8.7 mg/dL (8.5-10.1); Chloride 106 mmol/L (98-107); Creatinine, Serum 0.78 mg/dL (0.70-1.30); EST Glomerular Filtration Rate 103 mL/min (>60); Est Glom Filt Rate - Afr Amer 125 mL/min (>60); Estimated Creatinine Clearance 70.06 ml/min; Glucose 123 mg/dL (74-106); Potassium 3.6 mmol/L (3.5-5.1); Sodium Level 141 mmol/L (136-145)
--- NOTE | 2022-12-01 23:41 | HP.PCM.HOS_ITS ---
HPI - General General Date of Admission: 12/01/22 Date of Service: 12/01/22 Chief Complaint: multiple falls HPI Narrative MEENAKSHI NI, is a 77 M with a significant history of left ankle fracture; chronic low back pain and chronic hip pain who in the past saw Dr. Johnson, pain management presents emergency department with 2 falls. At baseline patient walks with a walker. He reported that he stopped pain management because he went into rehabilitation for a long time. At baseline patient reports low back pain with activities The second fall was more severe. With the fall his lower back pain now okay even at rest. Emergency department patient was given 1 g of acetaminophen; ketorolac and Norflex IM. With above medicine he became nauseous and required IV antiemetics. Patient has home health with PT and OT. Also, he has a care provider who is present to help the patient on some days. Patient could not be discharged from emergency department directly to home because the care provider would not have been available at that time. Patient is opened to being evaluated at the hospital by therapy and going for rehabilitation if necessary. [facility] Medical History Ankle fracture, left Atherosclerotic heart disease of [place] coronary artery without angina pectoris Closed fracture of left hip Closed left humeral fracture Essential hypertension Fall Former tobacco use Fracture of ninth thoracic vertebra (12/27/18) History of Clostridium difficile infection (01/09/19) History of subdural hematoma (post traumatic) (12/27/18) Hyperlipidemia retirement (current) use of anticoagulants Longstanding persistent atrial fibrillation Onycholysis Sepsis Traumatic hemothorax (12/30/18) Venous insufficiency (chronic) (peripheral) Home Medications atorvastatin 80 mg tablet 80 mg PO QHS cholesterol 04/02/16 [History Last Taken 11/24/21 22:00 80 mg] potassium chloride 20 mEq tablet,extended release 20 meq PO DAILY supplement 12/03/18 [History Last Taken 11/25/21 10:00 20 meq] cetirizine 10 mg capsule 10 mg PO DAILY Allergy 12/27/18 [History Last Taken 11/25/21 10:00 10 mg] metoprolol tartrate 50 mg tablet 50 mg PO BID bp 03/15/19 [History Last Taken 11/25/21 10:00 50 mg] cholecalciferol (vitamin D3) 1,250 mcg (50,000 unit) capsule 1,000 unit PO DAILY supplement 10/29/20 [History Last Taken 11/24/21 22:00 1000 units] acetaminophen 500 mg tablet 1,000 mg PO Q8 #0 tabs 12/30/21 [Rx Last Taken Unknown] citalopram 10 mg tablet 10 mg PO QHS 12/01/22 [History Last Taken Unknown] cromolyn 5.2 mg/spray (4 %) nasal spray (Nasalcrom) 2 spray intranasal DAILY 12/01/22 [History Last Taken Unknown] furosemide 40 mg tablet 40 mg PO DAILY 12/01/22 [History Last Taken Unknown] losartan 100 mg tablet (Cozaar) 100 mg PO DAILY 12/01/22 [History Last Taken Unknown] terazosin 10 mg capsule 10 mg PO QPM 12/01/22 [History Last Taken Unknown] warfarin 5 mg tablet 5 mg PO DAILY #90 tabs 12/01/22 [Rx Last Taken Unknown] xtendi 160 mg PO/SL QPM 12/01/22 [History Last Taken Unknown] Allergy/AdvReac Type Severity Reaction Status Date / Time amiodarone AdvReac Intermediate It did not Verified 12/01/22 19:44 work, also bad dreams and neuropathy Family History Father , Age 57 Myocardial infarction CAD (coronary artery disease) ETOH abuse Mother , Age 47, of bone cancer Bone cancer Brother , age 45, of AIDS AIDS (acquired immune deficiency syndrome) Surgical History H/O cervical spine surgery (01/2020) H/O coronary artery bypass surgery (11/26/98) History of left heart catheterization (11/26/98) History of left hip hemiarthroplasty History of thoracic spinal fusion (12/30/18) Social History household members: none Smoking Status: Former smoker alcohol intake: never substance use type: does not use ROS ROS Narrative Pertinent positives and pertinent negatives as noted in HPI. All other systems were reviewed and are negative Vital Signs Vital Signs Vital Signs: 12/01/22 19:40 12/01/22 22:44 Temperature 97.2 F L Temperature Source Temporal Pulse Rate 85 Respiratory Rate 18 Respiratory Effort Normal Blood Pressure 134/73 H Blood Pressure Mean 93 Pulse Ox 95 Oxygen Delivery Method Room Air Weight Weight: 126.8 kg Body Mass Index (BMI) 37.9 Physical Exam Narrative Physical exam: General: Patient in bed dry heaving. Well-nourished, well-developed. Head: Normocephalic, atraumatic, no tenderness Eyes: Vision is grossly intact. EOMI ENT, no trauma, moist mucous membranes, no rhinorrhea Neck: Nontender, No thyromegaly. CVS: Regular rate and rhythm. S1-S2 present. No murmur, gallop or rub. Respiratory : clear to auscultation bilaterally, chest wall nontender, no wheezing Abdomen: Soft, nontender, nondistended, normal bowel sounds, no masses : Deferred Back: Nontender, no CVA tenderness Extremities: Bilateral leg edema with ulcers. Skin: Normal color, no trauma, abrasions Neuro: Alert, oriented, cranial nerves II through XII grossly intact. Psychiatry: Normal mood. Normal affect. Not depressed. Not anxious. Results Lab / Micro Data Result Diagrams: 12/01/22 22:55 12/01/22 22:55 Labs: Laboratory Results - last 24 hr 12/01/22 22:55: WBC 6.7, RBC 3.78 L, Hgb 11.4 L, Hct 34.4 L, MCV 91.0, MCH 30.2, MCHC 33.1, RDW Std Deviation 45.7 H, RDW Coeff of Dick 13.6, Plt Count 124 L, MPV 8.8, Immature Gran % (Auto) 0.500, Neut % (Auto) 80.2 H, Lymph % (Auto) 12.0 L, [place] % (Auto) 5.9, Eos % (Auto) 1.1, Baso % (Auto) 0.3, Absolute Neuts (auto) 5.3, Absolute Lymphs (auto) 0.80 L, Nucleated RBC % 0 12/01/22 22:55: PT 34.2 H, INR 3.4 12/01/22 22:55: Sodium 141, Potassium 3.6, Chloride 106, Carbon Dioxide 27.0, Anion Gap 8, BUN 14, Creatinine 0.78, Estim Creat Clear Calc 70.06, Est GFR (MDRD) Af Amer 125, Est GFR (MDRD) Non-Af 103, BUN/Creatinine Ratio 18.0, Glucose 123 H, Calcium 8.7 Radiology Impression Lumbar Spine X-Ray 12/01/22 22:20 IMPRESSION: Compression fracture L4 unchanged. Spondylosis. Electronically Signed: Husam Munoz MD at 22:37 EST Reading Location ID and State: [address] [place] [address] , Service support , Assessment & Plan Assessment/Plan (1) Debility: (2) Unable to ambulate: (3) Generalized weakness: (4) Atrial fibrillation: (5) Supratherapeutic INR: PLAN: Plan Generalized weakness/debility/unable to ambulate/lower back pain Lumbar spine x-ray was visualized and compare with previous spine imaging: I agree with radiologist interpretation of compression fracture of L4 unchanged. Spondylolysis. PT and OT to evaluate and treat and make recommendations. Case management consult. Check vitamin D level Tylenol [id number] continued. Methocarbamol as needed and oxycodone as needed ordered. As needed antiemetics IV ordered. Bowel protocol in place CBC showed normal white count. Trend CBC Atrial fibrillation with supratherapeutic INR INR on same day of presentation presentation was 4.3. 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 Coumadin held. Trend INR. Bilateral leg wounds ABD, Kerix roll and Vincent wrap to bilateral legs. Wound care consult Hypertension Blood pressure is stable Metoprolol and losartan continued. Trend blood pressure and adjust blood pressure medications. Chronic anemia Stable. DVT prophylaxis: Not indicated as INR supratherapeutic. Charges/Coding Visit Charges Inpatient E&M: 19419 Init Hosp L2
[2022-12-02] VITALS (10 sets, daily range): BP systolic 102–126; BP diastolic 54–86; PULSE 73–84; RESP 14–18; TEMP 36.4–37.3; O2SAT 87–99; BMI 36.3
[2022-12-02] MEDS: Acetaminophen 500 MG Tablet 1000 MG PO ×3 (06:15→20:43)
[2022-12-02 06:16] LABS: International Normalized Ratio 3.7; Prothrombin Time (Protime)PT. 36.1 SECONDS (11.7-14.9)
--- NOTE | 2022-12-02 07:52 | PN.HOSP_ITS ---
Subjective Subjective Mr. Cohen is a 77-year-old white male who has a recent history of a left ankle fracture as well as chronic low back pain and chronic hip pain who presented to the emergency department with 2 falls. At baseline he does require a walker to ambulate. He does follow with pain management and sees?Dr. Johnson. He was unfortunately unable to be discharged from the emergency department as he was not able to ambulate independently and the care provider was not available at the time of discharge. He was therefore admitted to the hospital for physical and Occupational Therapy evaluations and possible ongoing rehab at discharge. Patient states that he has been in rehab for physical Occupational Therapy on and off for the last year for various problems. He was most recently discharged about 5 weeks ago from [facility]. He does admit that he feels he needs to go back to a facility but states that his leg weakness seems to be related to increased fatigue and weakness from the fatigue. He states he has no severe pain but it feels like he has lactic acid buildup like when he was in high school playing football. Objective Data Objective Data Vital Signs: Vital Signs Temp Pulse Resp BP Pulse Ox O2 Del Method O2 Flow Rate 98.2 F 76 16 123/58 H 98 Room Air 2 12/02/22 06:21 12/02/22 06:21 12/02/22 06:21 12/02/22 06:21 12/02/22 06:21 12/02/22 06:21 12/02/22 02:48 Oxygen Flow Rate (L/min) 2 Oxygen Delivery Method Room Air Weight: 121.5 kg Body Mass Index (BMI) 36.3 Intake & Output: Intake and Output for Last 24 Hours 11/30/22 12/01/22 12/02/22 23:59 23:59 23:59 Intake Total 200 / 200 Balance 200 / 200 Lab / Micro Data Result Diagrams: 12/01/22 22:55 12/01/22 22:55 Labs: Laboratory Results - last 24 hr 12/01/22 22:55: WBC 6.7, RBC 3.78 L, Hgb 11.4 L, Hct 34.4 L, MCV 91.0, MCH 30.2, MCHC 33.1, RDW Std Deviation 45.7 H, RDW Coeff of Dick 13.6, Plt Count 124 L, MPV 8.8, Immature Gran % (Auto) 0.500, Neut % (Auto) 80.2 H, Lymph % (Auto) 12.0 L, [place] % (Auto) 5.9, Eos % (Auto) 1.1, Baso % (Auto) 0.3, Absolute Neuts (auto) 5.3, Absolute Lymphs (auto) 0.80 L, Nucleated RBC % 0 12/01/22 22:55: PT 34.2 H, INR 3.4 12/01/22 22:55: Sodium 141, Potassium 3.6, Chloride 106, Carbon Dioxide 27.0, Anion Gap 8, BUN 14, Creatinine 0.78, Estim Creat Clear Calc 70.06, Est GFR (MDRD) Af Amer 125, Est GFR (MDRD) Non-Af 103, BUN/Creatinine Ratio 18.0, Glucose 123 H, Calcium 8.7 12/02/22 05:30: PT 36.1 H, INR 3.7 Radiography Diagnostic Testing: Radiology Impression Lumbar Spine X-Ray 12/01/22 22:20 IMPRESSION: Compression fracture L4 unchanged. Spondylosis. Electronically Signed: Husam Munoz MD at 22:37 EST Reading Location ID and State: [address] [place] [address] , Service support , Physical Exam Const alert, oriented x3, no apparent distress and well nourished Constitutional Narrative: Obese, elderly white male sitting up in chair at the bedside, appears comfortable and nontoxic, very pleasant HEENT head/scalp atraumatic and moist oral mucous membranes Head and Scalp: normocephalic Resp normal respiratory effort, no retractions, no use of accessory muscles and clear to auscultation bilaterally Auscultation: Negative for crackles, rhonchi or wheezes Cardio regular rate, regular rhythm, S1 normal heart sound, no murmurs, no rub, no gallops and no clicks GI normal to inspection, nondistended, normoactive bowel sounds, soft to palpation and non-tender Extremity no clubbing, cyanosis or edema Extremity Narrative: No tenderness at proximal hips or thighs with palpation, Neuro oriented x3, moves all extremities and no focal motor deficits Neuro Narrative: generalized weakness noted proximal greater than distal but no focal deficits Speech: speech normal Psych affect normal Psych Narrative: Very pleasant, appropriately interactive Assessment & Plan Assessment/Plan (1) Supratherapeutic INR: (2) Fracture of fourth lumbar vertebra: QUALIFIERS: Encounter type: initial encounter Fracture morphology: unspecified fracture morphology Fracture type: closed Qualified Code(s): S32.049A - Unspecified fracture of fourth lumbar vertebra, initial encounter for closed fracture (3) Generalized weakness: (4) Unable to ambulate: PLAN: Plan Debility/generalized weakness/inability to ambulate -This appears to be all related to pain and back and legs -Patient ambulates with a walker at home -PT/OT consultation -May need further rehab at discharge -Case management is consulted -It appears that patient has commercial Medicare and therefore will require pre-CERT prior to discharge -Check ESR/CRP/CK Chronic L4 compression fracture/chronic low back pain -Continue methocarbamol -Continue as needed oxycodone -Continue home scheduled Tylenol -Add lidocaine patch -As needed senna for bowel regimen -Vitamin D level was 55.1 and no need for replacement other than continuing his home 1000 units daily Atrial fibrillation -This is persistent and longstanding -INR on admission was 3.4 -INR today is 3.7 -Hold Coumadin -Recheck INR in a.m. -Continue home metoprolol Hypertension -Continue metoprolol -Continue home losartan -Continue home Lasix Hyperlipidemia -Continue home atorvastatin Recent left ankle fracture -03/2022 -Ambulating with a walker -Continue PT/OT next-May need placement BPH -Continue home Terazosin Seasonal allergies -Continue home sertraline -Continue home cromolyn nasal spray History of prostate cancer -Continue home Xtandi RAVIN -Continue CPAP at at bedtime DVT prophylaxis -Patient fully anticoagulated with Coumadin and INR is currently supratherapeutic at 3.7 CODE STATUS -Full code however unverified Charges/Coding Visit Charges Inpatient E&M: 85083 Subs Hosp L2
[2022-12-02 08:39] LABS: Vitamin D,25 Hydroxy 55.1 ng/mL
[2022-12-02] MEDS: Ensure Plus High Protein 120 ML LIQUID PO (08:57)
[2022-12-02] MEDS: Potassium Chloride Oral Tablet 20 MEQ PO (08:57)
[2022-12-02] MEDS: Losartan Potassium 100 MG Tablet PO (08:58)
[2022-12-02] MEDS: Loratadine 10 MG Tablet PO (08:58)
[2022-12-02] MEDS: Furosemide 40 MG Tablet PO (08:58)
[2022-12-02] MEDS: Metoprolol Tartrate 50 MG Tablet PO ×2 (08:58→20:43)
[2022-12-02] MEDS: Cholecalciferol (VIT D3) 25 MCG TABLET (1,000 UNITS) PO (08:59)
--- NOTE | 2022-12-02 11:31 | CASEMGMT ---
Social Work? SW in to meet with pt following update from MD Clark that pt will likely need placement at nursing facility. SW introduced self and role at the hospital. Pt agreeable to discussing discharge planning. A list of SNF providers including quality and resource use data consistent with the patient?s preferred geographic region, medical needs, and insurance network were provided from the [employer] Guide. Pt reviewed list and stated [facility] would be preference as pt sees DR. Pisano and has been to TCU previously. Referral sent to TCU. Georgette from TCU stated pt is accepted as long as pharmacy approves him. Georgette to start precert today, if pharmacy accepts pt for TCU. PLAN: TCU, pending precert ? JOHN Fitch?
[2022-12-02 11:47] LABS: AST(SGOT) 13 U/L (15-37); Alanine Aminotransfer ALT/SGPT 10 U/L (16-61); Albumin, Serum 2.6 g/dL (3.2-5.0); Alkaline Phosphatase 90 U/L (45-117); Bilirubin, Direct 0.27 mg/dL (0.00-0.30); CPK Total, Creatine Kinase 54 U/L (39-308); CRP 8.55 mg/L (0.0-3.0); Globulin 3.2 g/dL (2.2-4.2); Protein, Total 5.8 g/dL (6.4-8.2)
[2022-12-02 12:16] LABS: Erythrocyte Sedimentation Rate 20 mm/hr (0-20)
--- NOTE | 2022-12-02 13:13 | WOUNDNOTE ---
wound photo: left lower leg
--- NOTE | 2022-12-02 13:14 | WOUNDNOTE ---
wound photo: right lower leg
--- NOTE | 2022-12-02 14:16 | CASEMGMT ---
Social Work SW informed by Georgette at [facility] that pt willneed to bring own med (Xtendi) and if so can be accepted to [facility]. SW met with pt, asked about bringing med in. Pt confirmed can bring this med. SW updated Georgette at [facility]. Precert to be started today. PLAN: [facility], pending precert JOHN Fitch
--- NOTE | 2022-12-02 15:35 | CASEMGMT ---
MARIAJOSE CM in to discuss HOLLIS form with patient. RN CM explained HOLLIS form, patient voiced understanding. Pt signed form and filed in chart. Pt provided with a copy of signed HOLLIS form. Patient had no further questions or concerns at this time.
--- NOTE | 2022-12-02 17:55 | NURSING ---
This RN reviewed rounding, Vital Signs and shift assessment and [facility]
[2022-12-02] MEDS: Citalopram 10 MG Tablet PO (20:43)
[2022-12-02] MEDS: Atorvastatin Calcium 80 MG Tablet PO (20:43)
[2022-12-02] MEDS: Doxazosin 4 MG Tablet 8 MG PO (20:43)
[2022-12-03 03:55] VITALS: BP 125/65; PULSE 73; RESP 18; TEMP 36.7; O2SAT 97
[2022-12-03] MEDS: Acetaminophen 500 MG Tablet 1000 MG PO (06:30)
[2022-12-03 06:56] LABS: International Normalized Ratio 2.3; Prothrombin Time (Protime)PT. 24.9 SECONDS (11.7-14.9)
[2022-12-03 08:40] VITALS: O2SAT 95
[2022-12-03] MEDS: Potassium Chloride Oral Tablet 20 MEQ PO (09:32)
[2022-12-03] MEDS: Furosemide 40 MG Tablet PO (09:32)
[2022-12-03] MEDS: Cholecalciferol (VIT D3) 25 MCG TABLET (1,000 UNITS) PO (09:33)
[2022-12-03] MEDS: Losartan Potassium 100 MG Tablet PO (09:34)
[2022-12-03] MEDS: Loratadine 10 MG Tablet PO (09:34)
[2022-12-03 09:35] VITALS: PULSE 102
[2022-12-03] MEDS: Metoprolol Tartrate 50 MG Tablet PO (09:35)
[2022-12-03 09:48] VITALS: BP 110/63; PULSE 102; RESP 18; TEMP 36.7; O2SAT 92
[2022-12-03] MEDS: Lidocaine 5% Patch 1 PATCH TOPICAL (09:55)
--- NOTE | 2022-12-03 11:43 | DS.PCM_ITS ---
Providers Date of Admission: 12/01/22 Date of Discharge: 12/03/22 Primary Care Physician: Dr. James Pisano MD Consultations 12/02/22 01:44 Consult: Onc/Wound/brownfield program coordinator Routine Comment: Reason for Consult:: Biateral leg swelling Reason For Visit: DEBILITY,FALLS Diagnosis Discharge Diagnosis (1) Supratherapeutic INR: Status: Acute Code(s): R79.1 - Abnormal coagulation profile (2) Fracture of fourth lumbar vertebra: Status: Acute Code(s): S32.049A - Unspecified fracture of fourth lumbar vertebra, initial encounter for closed fracture Qualifiers: Encounter type: initial encounter Fracture type: closed Fracture morphology: unspecified fracture morphology Qualified Code(s): S32.049A - Unspecified fracture of fourth lumbar vertebra, initial encounter for closed fracture (3) Generalized weakness: Status: Acute Code(s): R53.1 - Weakness (4) Unable to ambulate: Status: Acute Code(s): R26.2 - Difficulty in walking, not elsewhere classified Medications at Discharge Home Medications atorvastatin 80 mg tablet 80 mg PO QHS cholesterol 04/02/16 potassium chloride 20 mEq tablet,extended release 20 meq PO DAILY supplement 12/03/18 cetirizine 10 mg capsule 10 mg PO DAILY Allergy 12/27/18 metoprolol tartrate 50 mg tablet 50 mg PO BID bp 03/15/19 cholecalciferol (vitamin D3) 1,250 mcg (50,000 unit) capsule 1,000 unit PO DAILY supplement 10/29/20 acetaminophen 500 mg tablet 1,000 mg PO Q8 #0 tabs 12/30/21 citalopram 10 mg tablet 10 mg PO QHS 12/01/22 cromolyn 5.2 mg/spray (4 %) nasal spray (Nasalcrom) 2 spray intranasal DAILY 12/01/22 furosemide 40 mg tablet 40 mg PO DAILY 12/01/22 losartan 100 mg tablet (Cozaar) 100 mg PO DAILY 12/01/22 terazosin 10 mg capsule 10 mg PO QPM 12/01/22 warfarin 5 mg tablet 5 mg PO DAILY #90 tabs 12/01/22 xtendi 160 mg PO/SL QPM 12/01/22 lidocaine 5 % topical patch 1 patch topical DAILY #0 ea 12/03/22 methocarbamol 750 mg tablet 750 mg PO Q6H PRN PRN spasms/musculoskeletal pain #0 tabs 12/03/22 Hospital Course Operations None Procedures - (Lumbar spine x-ray) Summary of Care Provided Minutes Spent on Discharge: 28 Hospital Course: Mr. Cohen is a 77-year-old white male who with a history of a left ankle fracture in March 2022 as well as chronic low back pain and chronic hip pain who presented to the on 12/02/2022 emergency department after 2 falls. He initially fell standing up out of a chair and had of the squad to get him up and then the second time he fell he was doing some dishes and his legs gave out on him. He reported that he has been pushing himself and denies any significant pain in his legs but does say that they burn from fatigue with extended activity and we can. At baseline he requires a walker to ambulate. He does have a caregiver at home but was unable to be discharged from the emergency department as he was not able to ambulate independently and his caregiver was not available at the time of discharge. He was admitted to the hospital for evaluations by physical and Occupational Therapy. They recommended ongoing rehab. We did check an ESR, CRP, and CK to see if there is any organic etiology other than muscle weakness related to debility causing his issues. He is ESR and CK were normal. His CRP was elevated at 8 however previously it had been 80 so it is much improved and I do not think he has PMR is the etiology for his issues at this time. He was excepted at the transitional care unit for ongoing rehab. His INR was initially supratherapeutic at 3. For on admission and up trended to 3.7 on the . We did hold his Coumadin for 2 days and INR on the day of discharge was 2.3. We did restart his Coumadin at this point and he will need INR daily for a few days to assure therapeutic levels. His insurance authorized discharge to TCU and the patient was discharged to transitional care unit on 12/03/2022 in stable condition. Discharge diagnoses: Generalized weakness Debility Inability ambulate-resolved Chronic L4 compression fracture Chronic low back pain Atrial fibrillation Hypertension Hyperlipidemia Recent left ankle fracture-03/2022 BPH Seasonal allergies History of prostate cancer RAVIN Physical Exam Const alert, oriented x3, no apparent distress and well nourished Constitutional Narrative: Obese, elderly white male sitting up in chair at the bedside, appears comfortable and nontoxic, very pleasant General Appearance: cooperative, comfortable, well kempt and well developed Orientation / Consciousness: awake, oriented to person, oriented to place and oriented to time Exam Limitations: no limitations Nutritional Appearance: obese HEENT normocephalic, head/scalp atraumatic and moist oral mucous membranes HEENT Narrative: Mild hearing loss, Mallampati is 2-3, no thrush Eyes PERRL and EOMs intact bilaterally Eyes Narrative: No scleral icterus Resp normal respiratory effort, no retractions, no use of accessory muscles and clear to auscultation bilaterally Auscultation: Negative for crackles, rhonchi or wheezes Cardio regular rate, regular rhythm, S1 normal heart sound, no murmurs, no rub, no gallops and no clicks GI normal to inspection, nondistended, normoactive bowel sounds, soft to palpation and non-tender Extremity no clubbing, cyanosis or edema Extremity Narrative: No tenderness at proximal hips or thighs with palpation, Neuro oriented x3, moves all extremities and no focal motor deficits Neuro Narrative: generalized weakness noted proximal greater than distal but no focal deficits Speech: speech normal Psych affect normal Psych Narrative: Very pleasant, appropriately interactive Weight / BMI Weight Weight: 121.5 kg Body Mass Index (BMI) 36.3 ABG / Lab / Microbiology Data Result Diagrams: 12/01/22 22:55 12/01/22 22:55 Laboratory: Laboratory Results - last 24 hr 12/02/22 05:30: ESR 20 12/02/22 05:30: Total Bilirubin 1.00, Direct Bilirubin 0.27, AST 13 L, ALT 10 L, Alkaline Phosphatase 90, Total Creatine Kinase 54, C-React Prot Ext Range 8.55 H , Total Protein 5.8 L, Albumin 2.6 L, Globulin 3.2 12/03/22 06:30: PT 24.9 H, INR 2.3 Meaningful Use Info Meaningful Use Diagnoses (Choose all that apply): None applicable Discharge Plan Admission Admit Date/Time: 12/01/22 23:46 Primary Reason for Your Visit: Debility/falls Attending Provider: Tamara Clark Primary Care Provider: James Pisano Chi Consulting Providers: David Gtz Discharge Orders/Prescriptions Prescriptions: New methocarbamol 750 mg Tablet 750 mg PO Q6H PRN PRN (Reason: spasms/musculoskeletal pain) Qty: 0 0RF lidocaine 5 % Adhesive Patch,Medicated 1 patch topical DAILY Qty: 0 0RF Protocol: *Topical Application Instructions APPLICATION INSTRUCTIONS: Low Back Continued potassium chloride 20 mEq tablet extended release 20 meq PO DAILY cholecalciferol (vitamin D3) 1,250 mcg (50,000 unit) capsule 1,000 unit PO DAILY metoprolol tartrate 50 mg tablet 50 mg PO BID atorvastatin 80 MG tablet 80 mg PO QHS cetirizine 10 MG capsule 10 mg PO DAILY acetaminophen 500 mg Tablet 1,000 mg PO Q8 Qty: 0 0RF furosemide 40 mg tablet 40 mg PO DAILY Label Comments: TAKE 1 TABLET BY MOUTH EVERY DAY cromolyn [Nasalcrom] 5.2 mg/spray (4 %) [place],Non-Aerosol 2 spray INTRANASAL DAILY citalopram 10 mg tablet 10 mg PO QHS Label Comments: TAKE 1 TABLET BY MOUTH EVERY DAY losartan [Cozaar] 100 mg tablet 100 mg PO DAILY Label Comments: TAKE 1 TABLET BY MOUTH EVERY DAY terazosin 10 mg capsule 10 mg PO QPM Label Comments: TAKE 1 CAPSULE BY MOUTH EVERYDAY AT BEDTIME xtendi 160 mg PO/SL QPM warfarin 5 mg tablet 5 mg PO DAILY Qty: 90 3RF Rx Instructions: hold 12/01, 12/02 for elevated inr. Referrals / Follow Up: James Pisano Chi, MD [Primary Care Provider] - Within 1 Week Disposition Disposition (needs filled in before D/C Order can be placed): [facility] Charges/Coding Visit Charges Inpatient E&M: 18389 SNF Disch
--- NOTE | 2022-12-03 11:53 | TREXTCAR_ITS ---
Diet Diet Order/Speech Therapy: 12/02/22 01:44 Diet: Cardiac - Heart Healthy Food consistency:: Regular Liquid Consistency:: Regular/Thin Routine Orders/Code Status Suppository Frequency: Daily PRN Routine Lab Work: CBC (1 week), BMP (1 week) and INR (Repeat in a.m. on 12/04/2022) Code Status: Full Code Wound(s) buttocks: Wound Type: shear/moisture left lower leg: Wound Type: Stasis Ulcer Dressing Change: Adaptic right lower leg: Wound Type: Stasis Ulcer Dressing Change: Adaptic Therapies Weight Bearing: Full weight bearing (Patient uses walker to ambulate) Physical Therapy: Eval and Treat Occupational Therapy: Eval and Treat Problem/Diagnosis (1) Supratherapeutic INR: Status: Acute Code(s): R79.1 - Abnormal coagulation profile (2) Fracture of fourth lumbar vertebra: Status: Acute Code(s): S32.049A - Unspecified fracture of fourth lumbar vertebra, initial encounter for closed fracture (3) Generalized weakness: Status: Acute Code(s): R53.1 - Weakness (4) Unable to ambulate: Status: Acute Code(s): R26.2 - Difficulty in walking, not elsewhere classified Allergies/Procedures Done in Hospital Allergies amiodarone Adverse Reaction (Intermediate, Verified 12/01/22 19:44) It did not work, also bad dreams and neuropathy Type of Care/Length of Stay Estimated LOS: Convalescent Care Less Than 30 days Type of Care Needed: Skilled Rehab Potential: Good Prognosis: Fair Additional Orders/Day of Discharge Day of Discharge: 12/03/22 Dietary and Speech Recommendations Dietitian Recommendations/Changes: cardiac diet; will d/c ensure plus TID Discharge Plan Admission Admit Date/Time: 12/01/22 23:46 Primary Reason for Your Visit: Debility/falls Attending Provider: Tamara Clark Primary Care Provider: James Pisano Chi Consulting Providers: David Gtz Discharge Orders/Prescriptions Prescriptions: New methocarbamol 750 mg Tablet 750 mg PO Q6H PRN PRN (Reason: spasms/musculoskeletal pain) Qty: 0 0RF lidocaine 5 % Adhesive Patch,Medicated 1 patch topical DAILY Qty: 0 0RF Protocol: *Topical Application Instructions APPLICATION INSTRUCTIONS: Low Back Continued potassium chloride 20 mEq tablet extended release 20 meq PO DAILY cholecalciferol (vitamin D3) 1,250 mcg (50,000 unit) capsule 1,000 unit PO DAILY metoprolol tartrate 50 mg tablet 50 mg PO BID atorvastatin 80 MG tablet 80 mg PO QHS cetirizine 10 MG capsule 10 mg PO DAILY acetaminophen 500 mg Tablet 1,000 mg PO Q8 Qty: 0 0RF furosemide 40 mg tablet 40 mg PO DAILY Label Comments: TAKE 1 TABLET BY MOUTH EVERY DAY cromolyn [Nasalcrom] 5.2 mg/spray (4 %) [place],Non-Aerosol 2 spray INTRANASAL DAILY citalopram 10 mg tablet 10 mg PO QHS Label Comments: TAKE 1 TABLET BY MOUTH EVERY DAY losartan [Cozaar] 100 mg tablet 100 mg PO DAILY Label Comments: TAKE 1 TABLET BY MOUTH EVERY DAY terazosin 10 mg capsule 10 mg PO QPM Label Comments: TAKE 1 CAPSULE BY MOUTH EVERYDAY AT BEDTIME xtendi 160 mg PO/SL QPM warfarin 5 mg tablet 5 mg PO DAILY Qty: 90 3RF Rx Instructions: hold 12/01, 12/02 for elevated inr. Referrals / Follow Up: James Pisano Chi, MD [Primary Care Provider] - Within 1 Week Disposition Disposition (needs filled in before D/C Order can be placed): Residential Facility (1) Fracture of fourth lumbar vertebra Qualifiers: Encounter type: initial encounter Fracture type: closed Fracture morphology: unspecified fracture morphology Qualified Code(s): S32.049A - Unspecified fracture of fourth lumbar vertebra, initial encounter for closed fracture
--- NOTE | 2022-12-03 12:11 | PHA.DC.MR ---
Pharmacy Service has performed discharge medication reconciliation for this patient. The patient's discharge medication list was reviewed for discrepancies and discrepancies were resolved. Home Medications atorvastatin 80 mg tablet 80 mg PO QHS cholesterol 04/02/16 potassium chloride 20 mEq tablet,extended release 20 meq PO DAILY supplement 12/03/18 cetirizine 10 mg capsule 10 mg PO DAILY Allergy 12/27/18 metoprolol tartrate 50 mg tablet 50 mg PO BID bp 03/15/19 cholecalciferol (vitamin D3) 1,250 mcg (50,000 unit) capsule 1,000 unit PO DAILY supplement 10/29/20 acetaminophen 500 mg tablet 1,000 mg PO Q8 #0 tabs 12/30/21 citalopram 10 mg tablet 10 mg PO QHS 12/01/22 cromolyn 5.2 mg/spray (4 %) nasal spray (Nasalcrom) 2 spray intranasal DAILY 12/01/22 furosemide 40 mg tablet 40 mg PO DAILY 12/01/22 losartan 100 mg tablet (Cozaar) 100 mg PO DAILY 12/01/22 terazosin 10 mg capsule 10 mg PO QPM 12/01/22 warfarin 5 mg tablet 5 mg PO DAILY #90 tabs 12/01/22 xtendi 160 mg PO/SL QPM 12/01/22 lidocaine 5 % topical patch 1 patch topical DAILY #0 ea 12/03/22 methocarbamol 750 mg tablet 750 mg PO Q6H PRN PRN spasms/musculoskeletal pain #0 tabs 12/03/22
--- NOTE | 2022-12-03 12:41 | CASEMGMT ---
Social Work ? SW notified pt of discharge to TCU today. Pt declined for SW to call family and update on discharge plan. RAHEEM faxed all discharge orders to TCU. SW made copies of discharge orders and placed on pt chart. Sent original orders in envelope with pt upon discharge.?? Disposition: TCU, skilled, convalescent, level of care? JOHN Fitch
--- NOTE | 2022-12-03 14:37 | NURSING ---
Report given to Melanie BILLY in TCU at this time.
[2022-12-03 14:45] VITALS: BP 115/80; PULSE 87; RESP 18; TEMP 36.9; O2SAT 94
== END 2022-12-03 14:54 | disposition skilled nursing facility (03) ==
LOC: ED 12-02 00:12 → MS3 12-02 00:17
PROVIDERS: Admitting Provider Hospitalist; Emergency Provider Student in an Organized Health Care Education/Training Program; PCP Family Medicine Geriatric Medicine; Visit Provider Internal Medicine
DX: I48.11 Longstanding persistent atrial fibrillation (principal); M48.56XA Collapsed vertebra, not elsewhere classified, lumbar region, initial encounter for fracture; E78.5 Hyperlipidemia, unspecified; R53.81 Other malaise; R26.2 Difficulty in walking, not elsewhere classified; I25.10 Atherosclerotic heart disease of native coronary artery without angina pectoris; R53.83 Other fatigue; N40.0 Benign prostatic hyperplasia without lower urinary tract symptoms; Y93.G1 Activity, food preparation and clean up; R53.1 Weakness; I10 Essential (primary) hypertension; S30.0XXA Contusion of lower back and pelvis, initial encounter; Z87.891 Personal history of nicotine dependence; G47.33 Obstructive sleep apnea (adult) (pediatric); I87.2 Venous insufficiency (chronic) (peripheral); R79.1 Abnormal coagulation profile; Z79.899 Other long term (current) drug therapy; Z79.01 Long term (current) use of anticoagulants; Z95.1 Presence of aortocoronary bypass graft; D64.9 Anemia, unspecified; W19.XXXA Unspecified fall, initial encounter; Y92.9 Unspecified place or not applicable; S82.892D Other fracture of left lower leg, subsequent encounter for closed fracture with routine healing; X58.XXXD Exposure to other specified factors, subsequent encounter; G89.29 Other chronic pain
CPT/HCPCS: 36415; 72100; 80048; 80076; 82306; 82550; 85025; 85610; 85652; 86140; 87426; 96372; 96374; 97162; 97166; 97530; 97535; 97802; 99221; 99285; A4216; G0378; J2405

== ENCOUNTER 2022-12-03 15:00 | Inpatient (IN) | payer MEDICARE, SELFPAY ==
[2022-12-03 15:17] VITALS: BP 123/76; PULSE 99; RESP 14; TEMP 36.4; O2SAT 94; BMI 36.1
[2022-12-03 17:49] VITALS: PULSE 85
[2022-12-03] MEDS: Metoprolol Tartrate 50 MG Tablet PO (17:49)
--- NOTE | 2022-12-03 18:45 | HP.PCM_ITS ---
HPI - General General Date of Admission: 12/03/22 Date of Service: 12/03/22 Chief Complaint: Here for rehabilitation. HPI Narrative 12/01/2022 MEENAKSHI NI, is a 77 Male who presents to [facility] Emergency Department with fall. Low back pain, recent left ankle fracture. Weak, fell today, fell again while washing dishes. Unable to care for self, unable to walk. 12/01/2022 Admit to Hospital. Pain control of chronic L4 compression fracture. Hold coumadin for elevated INR. PT/OT for debility. 12/02/2022 Pre-CERT for SNF. Soma, Oxycodone, Tylenol, Lidoderm for low back pain. 12/03/2022 Admit to TCU with debility, here for rehabilitation, strengthening, prior to discharge home alone. ON LICENSE OF [facility] Medical History Ankle fracture, left Atherosclerotic heart disease of [place] coronary artery without angina pectoris Closed fracture of left hip Closed left humeral fracture Essential hypertension Fall Former tobacco use Fracture of ninth thoracic vertebra (12/27/18) History of Clostridium difficile infection (01/09/19) History of subdural hematoma (post traumatic) (12/27/18) Hyperlipidemia shelter (current) use of anticoagulants Longstanding persistent atrial fibrillation Onycholysis Sepsis Traumatic hemothorax (12/30/18) Venous insufficiency (chronic) (peripheral) Home Medications atorvastatin 80 mg tablet 80 mg PO QHS cholesterol 04/02/16 [History Last Taken 11/24/21 22:00 80 mg] potassium chloride 20 mEq tablet,extended release 20 meq PO DAILY supplement 12/03/18 [History Last Taken 11/25/21 10:00 20 meq] cetirizine 10 mg capsule 10 mg PO DAILY Allergy 12/27/18 [History Last Taken 11/25/21 10:00 10 mg] metoprolol tartrate 50 mg tablet 50 mg PO BID bp 03/15/19 [History Last Taken 11/25/21 10:00 50 mg] cholecalciferol (vitamin D3) 1,250 mcg (50,000 unit) capsule 1,000 unit PO DAILY supplement 10/29/20 [History Last Taken 11/24/21 22:00 1000 units] citalopram 10 mg tablet 10 mg PO QHS depression 12/01/22 [History Last Taken Unknown] cromolyn 5.2 mg/spray (4 %) nasal spray (Nasalcrom) 2 spray intranasal DAILY allergies 12/01/22 [History Last Taken Unknown] furosemide 40 mg tablet 40 mg PO DAILY fluid pill 12/01/22 [History Last Taken Unknown] losartan 100 mg tablet (Cozaar) 100 mg PO DAILY BP 12/01/22 [History Last Taken Unknown] terazosin 10 mg capsule 10 mg PO QPM BPH 12/01/22 [History Last Taken Unknown] xtendi 160 mg PO/SL QPM prostate CA 12/01/22 [History Last Taken Unknown] acetaminophen 500 mg tablet 1,000 mg PO Q8 pain 12/03/22 [History Last Taken Unknown] lidocaine 5 % topical patch 1 patch topical DAILY pain 12/03/22 [History Last Taken Unknown] methocarbamol 750 mg tablet 750 mg PO Q6H PRN PRN spasms/musculoskeletal pain #0 tabs 12/03/22 [Rx Last Taken Unknown] warfarin 5 mg tablet 5 mg PO DAILY blood thinner/afib 12/03/22 [History Last Taken Unknown] Allergy/AdvReac Type Severity Reaction Status Date / Time amiodarone AdvReac Intermediate It did not Verified 12/01/22 19:44 work, also bad dreams and neuropathy Family History Father , Age 57 Myocardial infarction CAD (coronary artery disease) ETOH abuse Mother , Age 47, of bone cancer Bone cancer Brother , age 45, of AIDS AIDS (acquired immune deficiency syndrome) Surgical History H/O cervical spine surgery (01/2020) H/O coronary artery bypass surgery (11/26/98) History of left heart catheterization (11/26/98) History of left hip hemiarthroplasty History of thoracic spinal fusion (12/30/18) Social History household members: none Smoking Status: Former smoker alcohol intake: never substance use type: does not use ROS Constitutional Constitutional: Denies chills, fever(s) or weight gain ENT HEENT: Denies headache(s), nasal congestion or nasal discharge Cardiovascular Cardiovascular: Denies chest pain or palpitations Respiratory/Chest Respiratory/Chest: Denies cough, excessive phlegm production or shortness of breath with exertion Gastrointestinal Gastrointestinal: Denies abdominal pain, nausea or vomiting Genitourinary Genitourinary: Denies dysuria Musculoskeletal Musculoskeletal: Denies joint pain or joint swelling Integumentary Integumentary: Denies rash or wounds Neurologic Neurologic: Denies focal weakness, numbness or tingling Psychiatric Psychiatric: Denies anxiety, auditory hallucinations, depression, homicidal ideation or suicidal ideation Vital Signs Vital Signs Vital Signs: 12/03/22 15:17 12/03/22 17:49 Temperature 97.6 F L Temperature Source Oral Pulse Rate 99 85 Respiratory Rate 14 Blood Pressure 123/76 H Blood Pressure Mean 91 Blood Pressure Source Monitor Blood Pressure Position Sitting Blood Pressure Location Right Arm Pulse Ox 94 Oxygen Delivery Method Room Air Physical Exam Const alert General Appearance: cooperative HEENT normocephalic Eyes PERRL and EOMs intact bilaterally Neck supple, no JVD and no carotid bruits Resp normal respiratory effort, normal air movement and clear to auscultation bilaterally Cardio regular rate and regular rhythm GI normal to inspection, nondistended, normoactive bowel sounds, non-tender and n on-distended Extremity normal capillary refill General Extremity: Negative for edema Skin no rashes or lesions noted General Skin Exam: no breakdown Psych affect normal Appearance: appropriate Assessment & Plan Assessment/Plan (1) Debility: (2) Multiple falls: (3) Low back pain: (4) Atrial fibrillation: (5) Hyperlipidemia: (6) Depression: (7) Allergic rhinitis: (8) Hypertension: (9) Edema: (10) Prostate cancer: PLAN: Plan 77 year old male with below past medical history hospitalized for multiple falls, low back pain, admitted to TCU with debility, here for rehabilitation, strengthening, prior to discharge home alone. * Debility - PT/OT. * Pain - Tylenol 1000mg q8, Lidoderm patch 1 patch daily. * Bowel - senna/colace 2 tablets bid, MOM 30ml po x 1 prn. * Adult immunization - Administer pneumonia vaccine, covid19 vaccine, flu vaccine as appropriate. * DVT prophylaxis - Not necessary, already on warfarin. * Hyperlipidemia - Atorvastatin 40mg qhs. * Depression - Citalopram 10mg qhs, stable chronc correction use, GDR not recommended. * BPH - Doxazosin 8mg qpm. * Allergic rhinitis - Loratadine 10mg daily, Fluticasone nasal spray 2 sprays daily. * Edema - Furosemide 40mg daily. * Hypertension - Metoprolol 50mg bid, Losartan 100mg daily. * Muscle spasm - Soma 750mg q6h prn. * Hypokalemia - KCL 20meq daily. * Vitamin D deficiency - D3 25mcg daily. * Atrial fibrillation - Metoprolol 50mg bid, Warfarin 5mg daily, monitor INR. * Prostate cancer - Xtandi 160mg po qpm.
[2022-12-03] MEDS: Doxazosin 4 MG Tablet 8 MG PO (20:19)
[2022-12-03] MEDS: Citalopram 10 MG Tablet PO (20:20)
[2022-12-03] MEDS: Acetaminophen 500 MG Tablet 1000 MG PO (20:21)
[2022-12-03] MEDS: Senna/Docusate Sodium 1 Tablet 2 TABLET PO (20:26)
[2022-12-03] MEDS: Atorvastatin Calcium 40 MG Tablet PO (20:27)
[2022-12-03] MEDS: ENZALUTAMIDE 40 MG TABLET 160 MG PO (20:27)
[2022-12-04] MEDS: Methocarbamol 750 MG Tablet PO (03:02)
[2022-12-04 06:11] LABS: Absolute Lymphocyte Count 0.66 X10^3/uL (0.83-4.51); Absolute Neutrophil Count 4.3 X10^3/uL (2.0-7.7); Basophil# 0.02 X10^3/uL; Basophil% 0.4 % (0-1); Eosinophil# 0.14 X10^3/uL; Eosinophils% 2.5 % (0-5); Hematocrit 32.7 % (40-54); Hemoglobin 10.8 g/dL (13.0-16.5); Lymphocyte # 0.66 X10^3/ul (0.83-4.51); Mean Corpuscular Hgb 30.9 pg (27.0-32.0); Mean Corpuscular Volume 93.4 fL (80-94); Mean Platelet Vol. 9.1 fl (6.2-12.0); Monocyte# 0.37 X10^3/uL; Monocyte% 6.7 % (0-10); NRBC Flagged by Analyzer 0 % (0-5); Neutrophil # 4.31 X10^3/uL (2.7-7.7); Neutrophil % 78.2 % (47-70); Platelet Count 116 K/mm3 (150-450); RBC Distribution Width CV 13.7 % (11.6-14.6); RBC Distribution Width SD 46.5 fl (35.1-43.9); White Blood Count 5.5 K/mm3 (4.4-11.0)
[2022-12-04] MEDS: Senna/Docusate Sodium 1 Tablet 2 TABLET PO (06:30)
[2022-12-04] MEDS: Cholecalciferol (VIT D3) 25 MCG TABLET (1,000 UNITS) PO (06:30)
[2022-12-04 06:31] VITALS: BP 134/71; PULSE 84
[2022-12-04] MEDS: Acetaminophen 500 MG Tablet 1000 MG PO ×3 (06:31→20:17)
[2022-12-04] MEDS: Metoprolol Tartrate 50 MG Tablet PO ×2 (06:31→17:26)
[2022-12-04] MEDS: Furosemide 40 MG Tablet PO (06:31)
[2022-12-04] MEDS: Losartan Potassium 100 MG Tablet PO (06:31)
[2022-12-04] MEDS: Loratadine 10 MG Tablet PO (06:31)
[2022-12-04] MEDS: Fluticasone 0.05% 1 SPRAY NASAL.SRY 2 SPRAY NASAL (06:33)
[2022-12-04] MEDS: Nystatin Powder 15gm Bottle 1 APPLIC TOPICAL ×2 (06:35→17:35)
[2022-12-04] MEDS: Menthol/Lanolin/Calamine/Znox 113 GM Tube 1 APPLIC TOPICAL ×2 (06:35→17:35)
[2022-12-04 06:47] LABS: Anion Gap 7 (5-15); BUN 22 mg/dL (7-18); BUN/Creat Ratio 32.2 RATIO (10-20); Calcium,Total 8.3 mg/dL (8.5-10.1); Chloride 105 mmol/L (98-107); Creatinine, Serum 0.68 mg/dL (0.70-1.30); EST Glomerular Filtration Rate 120 mL/min (>60); Est Glom Filt Rate - Afr Amer 145 mL/min (>60); Glucose 113 mg/dL (74-106); Potassium 3.5 mmol/L (3.5-5.1); Sodium Level 141 mmol/L (136-145)
[2022-12-04 06:52] LABS: International Normalized Ratio 1.6; Prothrombin Time (Protime)PT. 18.5 SECONDS (11.7-14.9)
[2022-12-04] MEDS: Lidocaine 5% Patch 1 PATCH TOPICAL (07:30)
[2022-12-04] MEDS: proMETHazine 25 MG Tablet PO (08:08)
[2022-12-04 10:00] VITALS: O2SAT 91
--- NOTE | 2022-12-04 10:09 | NURSING ---
Director Field Services Note; Activity Asset: Leslie Addison is independent in his choice of daily activities. Addison stated he has his smartphone and tablet that is all he needs. He will read the paper, work on puzzles and doo all his finances on the tablet. Addison did say it would be fine for the Finishing Powder Press Operator to visit with him.
[2022-12-04] MEDS: Potassium Chloride Oral Tablet 20 MEQ PO (10:25)
[2022-12-04] MEDS: Tuberculin,Purif.prot.deriv. 50 TU/ML Vial 0.1 ML ID (10:26)
[2022-12-04 13:59] VITALS: BP 133/72; PULSE 97; RESP 18; TEMP 36.2; O2SAT 93
--- NOTE | 2022-12-04 14:14 | PCM.PN.DRR ---
TCU RX Drug Regimen Review Subjective: 77 YOM admitted to TCU 12/04/22 S/P hospitalization for multiple falls, debility, L4 compression fracture. Admitted to TCU D/t debility. Here for strengthening and rehabilitation prior to discharge home where he resides alone. Objective: Allergies amiodarone Adverse Reaction (Intermediate, Verified 12/01/22 19:44) It did not work, also bad dreams and neuropathy Current Medications Generic Name Dose Route Start Last Admin Trade Name Talha PRN Reason Stop Dose Admin Acetaminophen 1,000 mg 12/03/22 22:00 12/04/22 13:09 Acetaminophen 500 Mg Tablet PO 1,000 mg Q8 IVET Administration Atorvastatin Calcium 40 mg 12/03/22 22:00 12/03/22 20:27 Atorvastatin Calcium 40 Mg Tablet PO 40 mg QHS IVET Administration Calamine/Phenol 1 applic 12/04/22 06:00 12/04/22 06:35 Menthol/Lanolin/Calamine/Znox 113 Gm Tube TOPICAL 1 applic BID IVET Administration Protocol Cholecalciferol 25 mcg 12/04/22 06:00 12/04/22 06:30 Cholecalciferol (Vit D3) 25 Mcg Tablet (1,000 Units) PO 25 mcg DAILY IVET Administration Citalopram Hydrobromide 10 mg 12/03/22 22:00 12/03/22 20:20 Citalopram 10 Mg Tablet PO 10 mg QHS IVET Administration Doxazosin Mesylate 8 mg 12/03/22 21:00 12/03/22 20:19 Doxazosin 4 Mg Tablet PO 8 mg QPM IVET Administration Fluticasone Propionate 2 spray 12/04/22 06:00 12/04/22 06:33 Fluticasone 0.05% 1 [place] Nasal.Sry NASAL 2 spray DAILY IVET Administration Furosemide 40 mg 12/04/22 06:00 12/04/22 06:31 Furosemide 40 Mg Tablet PO 40 mg DAILY IVET Administration Lidocaine 1 patch 12/04/22 06:00 12/04/22 07:30 Lidocaine 5% Patch TOPICAL 1 patch DAILY IVET Administration Protocol Loratadine 10 mg 12/04/22 06:00 12/04/22 06:31 Loratadine 10 Mg Tablet PO 10 mg DAILY IVET Administration Losartan Potassium 100 mg 12/04/22 06:00 12/04/22 06:31 Losartan Potassium 100 Mg Tablet PO 100 mg DAILY IVET Administration Magnesium Hydroxide 30 ml 12/03/22 18:58 Magnesium Hydroxide 30 Ml Udc PO X1 PRN Constipation Methocarbamol 750 mg 12/03/22 15:50 12/04/22 03:02 Methocarbamol 750 Mg Tablet PO 750 mg Q6H PRN PRN Administration spasms/musculoskeletal pain Metoprolol Tartrate 50 mg 12/03/22 18:00 12/04/22 06:31 Metoprolol Tartrate 50 Mg Tablet PO 50 mg BID IVET Administration Nystatin 1 applic 12/04/22 06:00 12/04/22 06:35 Nystatin Powder 15gm Bottle TOPICAL 1 applic BID IVET Administration Protocol Oxycodone HCl 5 mg 12/04/22 13:04 Oxycodone 5 Mg Tablet PO Q4H PRN PRN Pain Score 6-10 Potassium Chloride 20 meq 12/04/22 08:00 12/04/22 10:25 Potassium Chloride Oral Tablet 20 Meq PO 20 meq DAILYCM IVET Administration Promethazine HCl 25 mg 12/04/22 07:54 12/04/22 08:08 Promethazine 25 Mg Tablet PO 25 mg Q4H PRN PRN Administration NAUSEA/VOMITING Senna/Docusate Sodium 2 tablet 12/03/22 19:00 12/04/22 06:30 Senna/Docusate Sodium 1 Tablet PO 2 tablet BID IVET Administration Tuberculin PPD 0.1 ml 12/11/22 10:00 Tuberculin,Purif.Prot.Deriv. 50 Tu/Ml Vial ID 12/11/22 10:01 X1 ONE Warfarin Sodium 5 mg 12/04/22 17:00 Warfarin 5 Mg Tablet PO DAILY@1700 [facility] Problem List (Last Reviewed 12/03/22 @ 18:[address] James Pisano MD) Prostate cancer (Acute) Edema (Acute) Hypertension (Chronic) Allergic rhinitis (Acute) Depression (Acute) Hyperlipidemia (Acute) Atrial fibrillation (Acute) Low back pain (Acute) Multiple falls (Acute) Debility (Acute) Vital Signs Temp Pulse Resp BP Pulse Ox O2 Del Method O2 Flow Rate 97.1 F L 97 18 133/72 H 93 Room Air 2 12/04/22 13:59 12/04/22 13:59 12/04/22 13:59 12/04/22 13:59 12/04/22 13:59 12/04/22 13:59 12/04/22 10:00 Oxygen Flow Rate (L/min) 2 Oxygen Delivery Method Room Air Weight: 121.064 kg Body Mass Index (BMI) 36.1 Sodium 141 mmol/L (136-145) 12/04/22 05:12 Potassium 3.5 mmol/L (3.5-5.1) 12/04/22 05:12 Chloride 105 mmol/L (98-107) 12/04/22 05:12 Carbon Dioxide 29.0 mmol/L (21.0-32.0) 12/04/22 05:12 Anion Gap 7 (5-15) 12/04/22 05:12 BUN 22 mg/dL (7-18) H 12/04/22 05:12 Creatinine 0.68 mg/dL (0.70-1.30) L 12/04/22 05:12 Est GFR (MDRD) Af Amer 145 mL/min (>60) 12/04/22 05:12 Est GFR (MDRD) Non-Af 120 mL/min (>60) 12/04/22 05:12 BUN/Creatinine Ratio 32.2 RATIO (10-20) H 12/04/22 05:12 Glucose 113 mg/dL (74-106) H 12/04/22 05:12 Assessment/Plan: 1. Pain: Tylenol 1000mg PO Q8h, Lidocaine Patch topically Daily. Please continue to monitor for increased/decreased S/S pain, local site irritation/burning with lidocaine patch use. 2. Afib/ HTN/ HLD: Atorvastatin 40mg PO QHS, Losartan 100mg PO Daily, Lopressor 50mg PO BID, Warfarin 5mg PO Daily. Please continue to monitor INR (last 1.6 on 12/04), BP (range 123-134/71-76), pulse (range 84-99), lipid panel annually or sooner as clinically indicated (last 10/22/22), S/S bleeding/bruising. 3. Fluid retention/Edema: Lasix 40mg PO Daily, KCl 20mEq PO DailyCM. Please continue to monitor I/O, renal function (stable as of 12/04), and potassium (last 3.5 on 12/04) 4. BPH: Doxazosin 8mg PO QHS. Please continue to monitor BP (stable), urinary retention, medication effectiveness. 5. Prostate Cancer: Xtandi 160mg PO QHS. Please continue to follow up with oncology services as clinically indicated, nausea, headache. 6. Allergic Rhinitis: Loratadine 10mg PO Daily, Flonase nasal spray 2 sprays daily. Please continue to monitor for dry nose, nasal irritation, allergy symptom improvement. 7. Muscle Spasms: Methocarbamol 750mg PO Q6h PRN. This is a Beer's Criteria medication and can increase the risk of oversedation, falls, and fractures. Please evaluate risk vs. benefit of continued use of Methocarbamol. The patient has only used 1 dose of PRN medication, appears spasms are under control at this time and not using excessively. 8. Nausea/Vomiting: Phenergan 25mg PO Q4h PRN. Please continue to monitor for increased/decreased symptoms, drowsiness, or confusion. 9. Skin Integrity: Calmoseptine topically BID, Nystatin powder topically BID. Please continue to monitor for skin irritation/redness, ulcer formation. 10. General Wellness: Vitamin D 1000 unit PO Daily. 11. Bowel: Senna/Docusate 2 tab PO BID, MOM 30mL PO x1 PRN. Please continue to monitor for increased/decreased constipation and/or diarrhea. -To date, the patient has not had a bowel movement. Assessment/Plan for indications treated with psychotropic medications: 1. Depression: Celexa 10mg PO QHS. Please consider a GDR by 05/2023 if clinically indicated, thank you Medical chart and medication regimen reviewed. The following medication irregularities or issues were identified: 1. Depression: Celexa 10mg PO QHS. Please consider a GDR by 05/2023 if clinically indicated, thank you Date of Note:: 12/04/22
--- NOTE | 2022-12-04 16:04 | CASEMGMT ---
Social Work SW attempted twice to complete assessment but pt unavailable. Will continue to attempt. Ritika Petty, ETYMOLOGY TEACHER WELDING MACHINE OPERATOR ULTRASONIC
[2022-12-04 17:26] VITALS: PULSE 97
[2022-12-04] MEDS: Doxazosin 4 MG Tablet 8 MG PO (20:16)
[2022-12-04] MEDS: Citalopram 10 MG Tablet PO (20:17)
[2022-12-04] MEDS: Atorvastatin Calcium 40 MG Tablet PO (20:17)
[2022-12-04] MEDS: ENZALUTAMIDE 40 MG TABLET 160 MG PO (20:19)
[2022-12-05] MEDS: oxyCODONE 5 MG Tablet PO ×2 (00:51→05:48)
[2022-12-05 05:49] VITALS: BP 127/62; PULSE 80
[2022-12-05] MEDS: Furosemide 40 MG Tablet PO (05:49)
[2022-12-05] MEDS: Cholecalciferol (VIT D3) 25 MCG TABLET (1,000 UNITS) PO (05:49)
[2022-12-05] MEDS: Losartan Potassium 100 MG Tablet PO (05:49)
[2022-12-05] MEDS: Metoprolol Tartrate 50 MG Tablet PO ×2 (05:49→19:01)
[2022-12-05] MEDS: Senna/Docusate Sodium 1 Tablet 2 TABLET PO ×2 (05:49→19:02)
[2022-12-05] MEDS: Loratadine 10 MG Tablet PO (05:49)
[2022-12-05] MEDS: Fluticasone 0.05% 1 SPRAY NASAL.SRY 2 SPRAY NASAL (05:54)
[2022-12-05] MEDS: Lidocaine 5% Patch 1 PATCH TOPICAL (05:54)
[2022-12-05] MEDS: Menthol/Lanolin/Calamine/Znox 113 GM Tube 1 APPLIC TOPICAL ×2 (05:56→19:03)
[2022-12-05] MEDS: Acetaminophen 500 MG Tablet 1000 MG PO ×3 (05:57→21:19)
[2022-12-05] MEDS: Nystatin Powder 15gm Bottle 1 APPLIC TOPICAL ×2 (05:58→19:03)
[2022-12-05] MEDS: Potassium Chloride Oral Tablet 20 MEQ PO (08:14)
[2022-12-05 10:30] VITALS: PULSE 92; RESP 16; O2SAT 92
--- NOTE | 2022-12-05 12:49 | CASEMGMT ---
Social Work Met with patient to complete initial assessment. Pt known to this worker from previous stay. No changes to prior assessment. Pt lives alone in apartment with [address]. Pt has a voluntary caregiver that is paid using a 'barter system', per the pt. For example, caregiver uses pt's care to drive and get him groceries. Pt did express further that since caregiver's father has within the last 10 years, he feels caregiver is expecting more from pt. I.E. caregiver asked if the pt can refer to her as his daughter, and pt denied stating he will refer to her as his voluntary caregiver. Pt did express his awareness to healthy boundaries and recognizes this may be transference. SW acknowledged and provided supportive listening. SW discussed code status and MOLST form. Pt wishes to be DNR-CCA, no intubation. DNR form signed, but bracelet has not be placed at the time of the assessment. New MOLST completed and placed in Dr folder. Educated to [facility] insurance with NRD 12/05 and continued stay is not guaranteed. Pt's goal is to return home at [facility]. SW to continue follow. Ritika Petty, POWER ORIGINATOR CLINICAL NURSING INTERN
[2022-12-05 14:00] VITALS: BP 128/56; PULSE 92; RESP 18; TEMP 36.3; O2SAT 98
[2022-12-05 19:01] VITALS: BP 130/55; PULSE 95
[2022-12-05] MEDS: ENZALUTAMIDE 40 MG TABLET 160 MG PO (21:15)
[2022-12-05] MEDS: Atorvastatin Calcium 40 MG Tablet PO (21:19)
[2022-12-05] MEDS: Doxazosin 4 MG Tablet 8 MG PO (21:19)
[2022-12-05] MEDS: Citalopram 10 MG Tablet PO (21:19)
[2022-12-06] MEDS: oxyCODONE 5 MG Tablet PO ×2 (00:23→22:00)
[2022-12-06] MEDS: proMETHazine 25 MG Tablet PO ×2 (01:57→22:00)
[2022-12-06] MEDS: Menthol/Lanolin/Calamine/Znox 113 GM Tube 1 APPLIC TOPICAL ×2 (05:33→18:30)
[2022-12-06] MEDS: Fluticasone 0.05% 1 SPRAY NASAL.SRY 2 SPRAY NASAL (05:34)
[2022-12-06] MEDS: Nystatin Powder 15gm Bottle 1 APPLIC TOPICAL ×2 (05:34→20:13)
[2022-12-06] MEDS: Acetaminophen 500 MG Tablet 1000 MG PO ×3 (05:36→22:00)
[2022-12-06 05:37] VITALS: BP 137/73; PULSE 87
[2022-12-06] MEDS: Senna/Docusate Sodium 1 Tablet 2 TABLET PO (05:37)
[2022-12-06] MEDS: Loratadine 10 MG Tablet PO (05:37)
[2022-12-06] MEDS: Losartan Potassium 100 MG Tablet PO (05:37)
[2022-12-06] MEDS: Metoprolol Tartrate 50 MG Tablet PO ×2 (05:37→17:40)
[2022-12-06] MEDS: Furosemide 40 MG Tablet PO (05:37)
[2022-12-06] MEDS: Lidocaine 5% Patch 1 PATCH TOPICAL (05:40)
[2022-12-06] MEDS: Cholecalciferol (VIT D3) 25 MCG TABLET (1,000 UNITS) PO (05:42)
[2022-12-06 05:44] VITALS: BP 137/73; PULSE 87
[2022-12-06] MEDS: Potassium Chloride Oral Tablet 20 MEQ PO (08:42)
[2022-12-06] MEDS: Methocarbamol 750 MG Tablet PO (10:04)
[2022-12-06 15:38] VITALS: BP 114/67; PULSE 80; RESP 12; TEMP 36.2; O2SAT 95
[2022-12-06 17:40] VITALS: BP 114/67; PULSE 80
--- NOTE | 2022-12-06 18:35 | NURSING ---
PT WAS WALKING TO BATHROOM AND LEANED UP AGAINST DOOR WAY IN BATHROOM AND GOT A SMALL SKIN TEAR ON RIGHT ELBOW. BANDAID APPLIED. RN AWARE
[2022-12-06 20:34] VITALS: PULSE 82; RESP 14; O2SAT 97
[2022-12-06] MEDS: Citalopram 10 MG Tablet PO (22:00)
[2022-12-06] MEDS: Doxazosin 4 MG Tablet 8 MG PO (22:00)
[2022-12-06] MEDS: ENZALUTAMIDE 40 MG TABLET 160 MG PO (22:00)
[2022-12-06] MEDS: Atorvastatin Calcium 40 MG Tablet PO (22:00)
[2022-12-06 22:04] VITALS: BP 116/58; PULSE 77; RESP 16
[2022-12-07] MEDS: proMETHazine 25 MG Tablet PO ×2 (03:07→23:43)
[2022-12-07] MEDS: oxyCODONE 5 MG Tablet PO ×3 (03:07→21:23)
[2022-12-07 07:02] VITALS: BP 138/74; PULSE 89
[2022-12-07] MEDS: Fluticasone 0.05% 1 SPRAY NASAL.SRY 2 SPRAY NASAL (07:02)
[2022-12-07] MEDS: Metoprolol Tartrate 50 MG Tablet PO ×2 (07:02→17:36)
[2022-12-07] MEDS: Lidocaine 5% Patch 1 PATCH TOPICAL (07:02)
[2022-12-07] MEDS: Acetaminophen 500 MG Tablet 1000 MG PO ×3 (07:03→21:25)
[2022-12-07] MEDS: Loratadine 10 MG Tablet PO (07:03)
[2022-12-07] MEDS: Losartan Potassium 100 MG Tablet PO (07:03)
[2022-12-07] MEDS: Furosemide 40 MG Tablet PO (07:04)
[2022-12-07] MEDS: Cholecalciferol (VIT D3) 25 MCG TABLET (1,000 UNITS) PO (08:28)
[2022-12-07] MEDS: Potassium Chloride Oral Tablet 20 MEQ PO (08:29)
[2022-12-07 10:10] VITALS: PULSE 9; RESP 18; O2SAT 94
[2022-12-07] MEDS: Nystatin Powder 15gm Bottle 1 APPLIC TOPICAL ×2 (10:11→21:28)
[2022-12-07 14:00] VITALS: BP 135/59; PULSE 77; RESP 18; TEMP 36.8; O2SAT 97
[2022-12-07 17:36] VITALS: BP 135/59; PULSE 77
[2022-12-07] MEDS: ENZALUTAMIDE 40 MG TABLET 160 MG PO (21:24)
[2022-12-07] MEDS: Doxazosin 4 MG Tablet 8 MG PO (21:25)
[2022-12-07] MEDS: Citalopram 10 MG Tablet PO (21:25)
[2022-12-07] MEDS: Atorvastatin Calcium 40 MG Tablet PO (21:26)
[2022-12-07] MEDS: Menthol/Lanolin/Calamine/Znox 113 GM Tube 1 APPLIC TOPICAL (21:28)
[2022-12-07 21:35] VITALS: BP 114/45; PULSE 75; RESP 16
[2022-12-08] MEDS: oxyCODONE 5 MG Tablet PO ×2 (02:44→11:06)
[2022-12-08] MEDS: Lidocaine 5% Patch 1 PATCH TOPICAL (04:50)
[2022-12-08] MEDS: Methocarbamol 750 MG Tablet PO (04:53)
[2022-12-08 05:02] VITALS: BP 132/73; PULSE 93
[2022-12-08] MEDS: Furosemide 40 MG Tablet PO (05:02)
[2022-12-08] MEDS: Metoprolol Tartrate 50 MG Tablet PO ×2 (05:02→17:32)
[2022-12-08] MEDS: Loratadine 10 MG Tablet PO (05:02)
[2022-12-08] MEDS: Senna/Docusate Sodium 1 Tablet 2 TABLET PO ×2 (05:02→17:32)
[2022-12-08] MEDS: Losartan Potassium 100 MG Tablet PO (05:02)
[2022-12-08] MEDS: Acetaminophen 500 MG Tablet 1000 MG PO ×3 (05:02→21:17)
[2022-12-08] MEDS: Cholecalciferol (VIT D3) 25 MCG TABLET (1,000 UNITS) PO (05:03)
[2022-12-08 06:52] VITALS: O2SAT 94
[2022-12-08] MEDS: Potassium Chloride Oral Tablet 20 MEQ PO (07:55)
[2022-12-08] MEDS: Nystatin Powder 15gm Bottle 1 APPLIC TOPICAL ×2 (08:02→21:19)
[2022-12-08 10:00] VITALS: PULSE 81; RESP 18; O2SAT 95
--- NOTE | 2022-12-08 10:34 | RAD_ITS ---
STUDY: X-RAY - PELVIS AND LEFT HIP REASON FOR EXAM: Male, 77 years old. Pain after fall. TECHNIQUE: 3 views of the pelvis and hip. COMPARISON: None. FINDINGS: There is a non-specific bowel gas pattern. Normal visualized soft tissue structures. There is narrowing with cortical sclerosis and osteophyte formation of the sacroiliac joint consistent with degenerative osteoarthritic changes. Normal bilateral superior and inferior pubic rami. There are degenerative changes of the pubic symphysis with articular narrowing and sclerosis. Normal bilateral ischial tuberosities. Normal visualized femoral head. There is osteoarthritic spur formation of the acetabular rim. There is mild articular joint space narrowing of the hip. Status post left total hip replacement. The patient is status post prostatic radiation seeds placement. RAD/HIP, UNI W/ Pelvis 2-3 Views IMPRESSION: Status post left total hip replacement. Degenerative changes of the right hip joint. Electronically Signed: Benjie Lieberman MD at 14:41 EST ,
[2022-12-08] MEDS: proMETHazine 25 MG Tablet PO (10:52)
[2022-12-08 14:00] VITALS: BP 112/65; PULSE 75; RESP 16; TEMP 36.4; O2SAT 96
--- NOTE | 2022-12-08 14:54 | NURSING ---
Patient refused to get covid booster. Educated on the vaccine and educational pamphlet given to patient.
[2022-12-08 17:31] VITALS: BP 119/61; PULSE 86
[2022-12-08 17:32] VITALS: PULSE 86
--- NOTE | 2022-12-08 18:36 | NURSING ---
Requested consult for Dr Johnson, patient has seen in the past and had at least one injection for back pain. Dr Pisano placed order for consult. Continues to have back and hip pain, oxy increased today, offered multiple times but pt only wanted to take once.
[2022-12-08 19:46] LABS: International Normalized Ratio 1.5; Prothrombin Time (Protime)PT. 17.7 SECONDS (11.7-14.9)
[2022-12-08] MEDS: Atorvastatin Calcium 40 MG Tablet PO (21:17)
[2022-12-08] MEDS: Doxazosin 4 MG Tablet 8 MG PO (21:17)
[2022-12-08] MEDS: Citalopram 10 MG Tablet PO (21:17)
[2022-12-08] MEDS: ENZALUTAMIDE 40 MG TABLET 160 MG PO (21:17)
[2022-12-08] MEDS: Menthol/Lanolin/Calamine/Znox 113 GM Tube 1 APPLIC TOPICAL (21:18)
[2022-12-09] MEDS: proMETHazine 25 MG Tablet PO (01:13)
[2022-12-09] MEDS: oxyCODONE 5 MG Tablet PO (01:13)
[2022-12-09 06:31] VITALS: BP 134/62; PULSE 84
[2022-12-09] MEDS: Loratadine 10 MG Tablet PO (06:31)
[2022-12-09] MEDS: Metoprolol Tartrate 50 MG Tablet PO ×2 (06:31→17:05)
[2022-12-09] MEDS: Furosemide 40 MG Tablet PO (06:31)
[2022-12-09] MEDS: Senna/Docusate Sodium 1 Tablet 2 TABLET PO ×2 (06:31→17:07)
[2022-12-09] MEDS: Cholecalciferol (VIT D3) 25 MCG TABLET (1,000 UNITS) PO (06:31)
[2022-12-09] MEDS: Acetaminophen 500 MG Tablet 1000 MG PO ×3 (06:31→22:13)
[2022-12-09] MEDS: Losartan Potassium 100 MG Tablet PO (06:32)
[2022-12-09] MEDS: Fluticasone 0.05% 1 SPRAY NASAL.SRY 2 SPRAY NASAL (06:33)
[2022-12-09] MEDS: Lidocaine 5% Patch 1 PATCH TOPICAL (06:33)
[2022-12-09] MEDS: Potassium Chloride Oral Tablet 20 MEQ PO (08:16)
--- NOTE | 2022-12-09 09:52 | NURSING ---
CALLED OFFICE FOR CONSULT PER ORDER AND TALKED TO STAFF. PER STAFF WILL BE NOTIFIED.
[2022-12-09 10:30] VITALS: PULSE 66; RESP 18; O2SAT 96
[2022-12-09] MEDS: Nystatin Powder 15gm Bottle 1 APPLIC TOPICAL ×2 (11:08→22:17)
[2022-12-09 14:00] VITALS: BP 108/74; PULSE 74; RESP 16; TEMP 36.1; O2SAT 98
--- NOTE | 2022-12-09 14:12 | CASEMGMT ---
Social Work BIMS and PHQ9 interviews completed on this date for MDS assessment. BIMS score 1515, PHQ9 score 01/05. Pt states he does not feel hopeless but does feel a little down at times and this is why he was started on Celexa. Pt feels this will be helpful with mood moving forward. JOHN Michaels
[2022-12-09 17:05] VITALS: BP 122/71; PULSE 73
[2022-12-09] MEDS: Warfarin 0.5 MG Tablet PO (17:06)
[2022-12-09 17:09] VITALS: BP 122/71; PULSE 73
[2022-12-09] MEDS: ENZALUTAMIDE 40 MG TABLET 160 MG PO (22:12)
[2022-12-09] MEDS: Doxazosin 4 MG Tablet 8 MG PO (22:12)
[2022-12-09] MEDS: Citalopram 10 MG Tablet PO (22:12)
[2022-12-09] MEDS: Atorvastatin Calcium 40 MG Tablet PO (22:14)
[2022-12-10] MEDS: Fluticasone 0.05% 1 SPRAY NASAL.SRY 2 SPRAY NASAL (06:25)
[2022-12-10 06:26] VITALS: BP 139/82; PULSE 84
[2022-12-10] MEDS: Metoprolol Tartrate 50 MG Tablet PO ×2 (06:26→18:07)
[2022-12-10] MEDS: Losartan Potassium 100 MG Tablet PO (06:27)
[2022-12-10] MEDS: Loratadine 10 MG Tablet PO (06:27)
[2022-12-10] MEDS: Furosemide 40 MG Tablet PO (06:27)
[2022-12-10] MEDS: Acetaminophen 500 MG Tablet 1000 MG PO ×3 (06:27→22:15)
[2022-12-10] MEDS: Cholecalciferol (VIT D3) 25 MCG TABLET (1,000 UNITS) PO (06:27)
[2022-12-10] MEDS: Lidocaine 5% Patch 1 PATCH TOPICAL (06:27)
[2022-12-10] MEDS: Senna/Docusate Sodium 1 Tablet 2 TABLET PO ×2 (06:27→18:08)
[2022-12-10] MEDS: Potassium Chloride Oral Tablet 20 MEQ PO (08:20)
--- NOTE | 2022-12-10 08:20 | NURSING ---
Container Filler Note; MDS Complete
--- NOTE | 2022-12-10 09:15 | NURSING ---
PER PT, IN TO SEE PT LAST NIGHT. PT STATED THAT DR. ALVARADO WAS GOING TO TALK TO FIRST BEFORE PRECEDING ANY FARTHER AT THIS TIME AND WOULD LET PT KNOW.
[2022-12-10 10:00] VITALS: PULSE 68; RESP 16; O2SAT 97
[2022-12-10] MEDS: Nystatin Powder 15gm Bottle 1 APPLIC TOPICAL ×2 (11:49→22:17)
[2022-12-10] MEDS: proMETHazine 25 MG Tablet PO (11:58)
[2022-12-10] MEDS: oxyCODONE 5 MG Tablet PO (11:58)
[2022-12-10 14:00] VITALS: BP 139/72; PULSE 78; RESP 16; TEMP 35.9; O2SAT 97
--- NOTE | 2022-12-10 14:16 | CASEMGMT ---
Social Work Plan of care meeting held. Patient present. Patient caregiver present via speaker phone. This social media director communicating that insurance update is due on 12/16/2022 with anticipated discharge to be 12/19/2022 per the insurance. Patient plans to discharge to home alone with aide to continue to assist patient in the home. Patient reports to have had [facility] home health prior to hospitalization and now custodial stay. Therapy is recommending for patient to continue with home health care when patient returns to the community. Patient would like to continue with services through [employer], social work to assist in faciliating referral when discharge date/plan is further established. Social Work to continue to follow. Marielena Craig MSW, JESSICAS
[2022-12-10] MEDS: Warfarin 0.5 MG Tablet PO (18:06)
[2022-12-10 18:07] VITALS: BP 139/72; PULSE 78
[2022-12-10] MEDS: ENZALUTAMIDE 40 MG TABLET 160 MG PO (22:15)
[2022-12-10] MEDS: Menthol/Lanolin/Calamine/Znox 113 GM Tube 1 APPLIC TOPICAL (22:17)
[2022-12-10] MEDS: Doxazosin 4 MG Tablet 8 MG PO (22:17)
[2022-12-10] MEDS: Atorvastatin Calcium 40 MG Tablet PO (22:18)
[2022-12-10] MEDS: Citalopram 10 MG Tablet PO (22:18)
[2022-12-11 05:36] LABS: Absolute Lymphocyte Count 1.11 X10^3/uL (0.83-4.51); Absolute Neutrophil Count 2.6 X10^3/uL (2.0-7.7); Basophil# 0.02 X10^3/uL; Basophil% 0.5 % (0-1); Eosinophil# 0.31 X10^3/uL; Hematocrit 32.6 % (40-54); Hemoglobin 10.4 g/dL (13.0-16.5); Lymphocyte # 1.11 X10^3/ul (0.83-4.51); Lymphocyte % 25.1 % (19-41); Mean Corp Hgb Conc 31.9 g/dL (32-36); Mean Corpuscular Volume 93.9 fL (80-94); Mean Platelet Vol. 8.8 fl (6.2-12.0); Monocyte# 0.41 X10^3/uL; Monocyte% 9.3 % (0-10); NRBC Flagged by Analyzer 0 % (0-5); Neutrophil # 2.56 X10^3/uL (2.7-7.7); Neutrophil % 57.9 % (47-70); Platelet Count 165 K/mm3 (150-450); RBC Distribution Width CV 13.5 % (11.6-14.6); RBC Distribution Width SD 46.3 fl (35.1-43.9); Red Blood Count 3.47 M/mm3 (4.6-6.2); White Blood Count 4.4 K/mm3 (4.4-11.0)
[2022-12-11 05:47] LABS: International Normalized Ratio 1.5; Prothrombin Time (Protime)PT. 18.1 SECONDS (11.7-14.9)
[2022-12-11 06:07] LABS: Anion Gap 6 (5-15); BUN 13 mg/dL (7-18); BUN/Creat Ratio 22.3 RATIO (10-20); Calcium,Total 8.8 mg/dL (8.5-10.1); Chloride 106 mmol/L (98-107); Creatinine, Serum 0.58 mg/dL (0.70-1.30); EST Glomerular Filtration Rate 145 mL/min (>60); Est Glom Filt Rate - Afr Amer 175 mL/min (>60); Estimated Creatinine Clearance 70.06 ml/min; Glucose 92 mg/dL (74-106); Potassium 3.8 mmol/L (3.5-5.1); Sodium Level 141 mmol/L (136-145)
[2022-12-11] MEDS: Furosemide 40 MG Tablet PO (06:46)
[2022-12-11] MEDS: Cholecalciferol (VIT D3) 25 MCG TABLET (1,000 UNITS) PO (06:46)
[2022-12-11] MEDS: Losartan Potassium 100 MG Tablet PO (06:46)
[2022-12-11] MEDS: Senna/Docusate Sodium 1 Tablet 2 TABLET PO (06:47)
[2022-12-11] MEDS: Acetaminophen 500 MG Tablet 1000 MG PO ×3 (06:48→20:28)
[2022-12-11] MEDS: Loratadine 10 MG Tablet PO (06:48)
[2022-12-11] MEDS: Lidocaine 5% Patch 1 PATCH TOPICAL (06:49)
[2022-12-11 06:50] VITALS: BP 129/84; PULSE 78
[2022-12-11] MEDS: Metoprolol Tartrate 50 MG Tablet PO ×2 (06:50→17:32)
[2022-12-11] MEDS: Fluticasone 0.05% 1 SPRAY NASAL.SRY 2 SPRAY NASAL (06:50)
[2022-12-11] MEDS: Potassium Chloride Oral Tablet 20 MEQ PO (08:51)
[2022-12-11] MEDS: Menthol/Lanolin/Calamine/Znox 113 GM Tube 1 APPLIC TOPICAL ×2 (08:51→20:29)
[2022-12-11] MEDS: Nystatin Powder 15gm Bottle 1 APPLIC TOPICAL ×2 (08:52→20:30)
[2022-12-11] MEDS: proMETHazine 25 MG Tablet PO (08:55)
[2022-12-11 11:00] VITALS: PULSE 70; RESP 18; O2SAT 97
[2022-12-11] MEDS: Tuberculin,Purif.prot.deriv. 50 TU/ML Vial 0.1 ML ID (11:09)
[2022-12-11 13:59] VITALS: BP 120/69; PULSE 76; RESP 16; TEMP 36.1; O2SAT 95
[2022-12-11 17:32] VITALS: BP 101/71; PULSE 72
[2022-12-11] MEDS: Warfarin 0.5 MG Tablet PO (17:32)
[2022-12-11] MEDS: Arthritis Pain Compound 60 CLICK TUBE TOPICAL (17:32)
[2022-12-11 20:24] VITALS: BP 100/54; PULSE 77
[2022-12-11] MEDS: Citalopram 10 MG Tablet PO (20:27)
[2022-12-11] MEDS: Atorvastatin Calcium 40 MG Tablet PO (20:28)
[2022-12-11] MEDS: ENZALUTAMIDE 40 MG TABLET 160 MG PO (20:29)
[2022-12-12 04:48] VITALS: BP 134/69; PULSE 82
[2022-12-12] MEDS: Acetaminophen 500 MG Tablet 1000 MG PO ×3 (04:49→21:32)
[2022-12-12] MEDS: Cholecalciferol (VIT D3) 25 MCG TABLET (1,000 UNITS) PO (04:49)
[2022-12-12 04:50] VITALS: PULSE 82
[2022-12-12] MEDS: Losartan Potassium 100 MG Tablet PO (04:50)
[2022-12-12] MEDS: Metoprolol Tartrate 50 MG Tablet PO ×2 (04:50→16:38)
[2022-12-12] MEDS: Arthritis Pain Compound 60 CLICK TUBE TOPICAL ×2 (04:50→16:39)
[2022-12-12] MEDS: Loratadine 10 MG Tablet PO (04:50)
[2022-12-12] MEDS: Furosemide 40 MG Tablet PO (04:50)
[2022-12-12] MEDS: Lidocaine 5% Patch 1 PATCH TOPICAL (04:51)
[2022-12-12] MEDS: Potassium Chloride Oral Tablet 20 MEQ PO (07:32)
[2022-12-12] MEDS: Menthol/Lanolin/Calamine/Znox 113 GM Tube 1 APPLIC TOPICAL ×2 (11:39→21:36)
[2022-12-12] MEDS: Nystatin Powder 15gm Bottle 1 APPLIC TOPICAL ×2 (11:42→21:36)
[2022-12-12 13:25] VITALS: PULSE 66
[2022-12-12 14:00] VITALS: BP 145/85; PULSE 80; RESP 16; TEMP 36.1; O2SAT 97
[2022-12-12] MEDS: Warfarin 0.5 MG Tablet PO (16:37)
[2022-12-12 16:38] VITALS: PULSE 80
[2022-12-12] MEDS: Doxazosin 4 MG Tablet 8 MG PO (21:30)
[2022-12-12] MEDS: Atorvastatin Calcium 40 MG Tablet PO (21:32)
[2022-12-12] MEDS: Citalopram 10 MG Tablet PO (21:33)
[2022-12-12] MEDS: ENZALUTAMIDE 40 MG TABLET 160 MG PO (21:34)
[2022-12-13] MEDS: proMETHazine 25 MG Tablet PO (04:50)
[2022-12-13] MEDS: oxyCODONE 5 MG Tablet PO (04:51)
[2022-12-13] MEDS: Arthritis Pain Compound 60 CLICK TUBE TOPICAL ×2 (05:38→16:44)
[2022-12-13] MEDS: Fluticasone 0.05% 1 SPRAY NASAL.SRY 2 SPRAY NASAL (05:39)
[2022-12-13] MEDS: Lidocaine 5% Patch 1 PATCH TOPICAL (05:41)
[2022-12-13] MEDS: Loratadine 10 MG Tablet PO (05:43)
[2022-12-13] MEDS: Losartan Potassium 100 MG Tablet PO (05:45)
[2022-12-13] MEDS: Acetaminophen 500 MG Tablet 1000 MG PO ×3 (05:47→20:18)
[2022-12-13] MEDS: Cholecalciferol (VIT D3) 25 MCG TABLET (1,000 UNITS) PO (05:47)
[2022-12-13] MEDS: Senna/Docusate Sodium 1 Tablet 2 TABLET PO (05:47)
[2022-12-13 05:48] VITALS: BP 132/67; PULSE 70
[2022-12-13] MEDS: Furosemide 40 MG Tablet PO (05:48)
[2022-12-13] MEDS: Metoprolol Tartrate 50 MG Tablet PO ×2 (05:48→16:44)
[2022-12-13] MEDS: Potassium Chloride Oral Tablet 20 MEQ PO (08:23)
[2022-12-13] MEDS: Menthol/Lanolin/Calamine/Znox 113 GM Tube 1 APPLIC TOPICAL ×2 (08:24→20:23)
[2022-12-13] MEDS: Nystatin Powder 15gm Bottle 1 APPLIC TOPICAL ×2 (08:25→20:24)
[2022-12-13 14:00] VITALS: BP 113/54; PULSE 70; RESP 16; TEMP 36.9; O2SAT 97
[2022-12-13] MEDS: Warfarin 0.5 MG Tablet PO (16:43)
[2022-12-13 16:44] VITALS: BP 127/73; PULSE 72
[2022-12-13] MEDS: Doxazosin 4 MG Tablet 8 MG PO (20:19)
[2022-12-13] MEDS: ENZALUTAMIDE 40 MG TABLET 160 MG PO (20:19)
[2022-12-13] MEDS: Atorvastatin Calcium 40 MG Tablet PO (20:20)
[2022-12-13] MEDS: Citalopram 10 MG Tablet PO (20:20)
[2022-12-14 05:08] VITALS: BP 136/58; PULSE 68
[2022-12-14] MEDS: Metoprolol Tartrate 50 MG Tablet PO ×2 (05:08→16:55)
[2022-12-14] MEDS: Arthritis Pain Compound 60 CLICK TUBE TOPICAL ×2 (05:08→16:54)
[2022-12-14] MEDS: Furosemide 40 MG Tablet PO (05:08)
[2022-12-14] MEDS: Acetaminophen 500 MG Tablet 1000 MG PO ×3 (05:08→20:13)
[2022-12-14] MEDS: Losartan Potassium 100 MG Tablet PO (05:09)
[2022-12-14] MEDS: Cholecalciferol (VIT D3) 25 MCG TABLET (1,000 UNITS) PO (05:09)
[2022-12-14] MEDS: Loratadine 10 MG Tablet PO (05:09)
[2022-12-14] MEDS: Lidocaine 5% Patch 1 PATCH TOPICAL (05:12)
[2022-12-14] MEDS: Potassium Chloride Oral Tablet 20 MEQ PO (07:48)
[2022-12-14] MEDS: Menthol/Lanolin/Calamine/Znox 113 GM Tube 1 APPLIC TOPICAL ×2 (07:50→20:30)
[2022-12-14] MEDS: Nystatin Powder 15gm Bottle 1 APPLIC TOPICAL ×2 (07:50→20:30)
[2022-12-14 14:00] VITALS: BP 117/76; PULSE 72; RESP 14; TEMP 36.1; O2SAT 97
[2022-12-14] MEDS: Warfarin 0.5 MG Tablet PO (16:54)
[2022-12-14 16:55] VITALS: PULSE 72
[2022-12-14] MEDS: ENZALUTAMIDE 40 MG TABLET 160 MG PO (20:12)
[2022-12-14] MEDS: Doxazosin 4 MG Tablet 8 MG PO (20:13)
[2022-12-14] MEDS: Atorvastatin Calcium 40 MG Tablet PO (20:14)
[2022-12-14] MEDS: Citalopram 10 MG Tablet PO (20:14)
[2022-12-14 20:42] VITALS: O2SAT 95
[2022-12-15] MEDS: Senna/Docusate Sodium 1 Tablet 2 TABLET PO (05:52)
[2022-12-15] MEDS: Acetaminophen 500 MG Tablet 1000 MG PO ×3 (05:52→20:47)
[2022-12-15] MEDS: Loratadine 10 MG Tablet PO (05:52)
[2022-12-15] MEDS: proMETHazine 25 MG Tablet PO (05:52)
[2022-12-15 05:53] VITALS: BP 111/67; PULSE 90
[2022-12-15] MEDS: Cholecalciferol (VIT D3) 25 MCG TABLET (1,000 UNITS) PO (05:53)
[2022-12-15] MEDS: Losartan Potassium 100 MG Tablet PO (05:53)
[2022-12-15] MEDS: Metoprolol Tartrate 50 MG Tablet PO ×2 (05:53→17:45)
[2022-12-15] MEDS: Furosemide 40 MG Tablet PO (05:53)
[2022-12-15 06:09] LABS: International Normalized Ratio 1.4; Prothrombin Time (Protime)PT. 16.6 SECONDS (11.7-14.9)
[2022-12-15] MEDS: Potassium Chloride Oral Tablet 20 MEQ PO (08:15)
[2022-12-15] MEDS: Lidocaine 5% Patch 1 PATCH TOPICAL (09:07)
[2022-12-15] MEDS: Arthritis Pain Compound 60 CLICK TUBE TOPICAL ×2 (09:09→20:48)
[2022-12-15 09:45] VITALS: PULSE 73; RESP 18; O2SAT 94
[2022-12-15] MEDS: Nystatin Powder 15gm Bottle 1 APPLIC TOPICAL ×2 (09:46→20:52)
--- NOTE | 2022-12-15 11:14 | MDS.RN ---
Information for the mds was obtained from review of the clinical record, interview of resident, staff, and direct observation of resident's care.
--- NOTE | 2022-12-15 12:58 | NURSING ---
Addendum entered by Misha Diana 12/15/22 14:16: OFFICE CALLED BACK AND STATED THAT DR. ALVARADO SAID THAT THERE ARE NO INTERVENTIONS FOR NOW AND PT WAS NOT IN SEVERE PAIN AND PT STATED HE FELT PAIN WAS GETTING BETTER. BUT IF PT GETS IN A LOT OF PAIN TO CALL HIS OFFICE. ALSO PT IS TO FOLLOW UP WITH HIM IN A MONTH. THIS NURSE SCHEDULED APPOINTMENT AND UPDATED PT. PT STATED THANK YOU. Original Note: CALLED OFFICE TO SEE IF THE HAS MADE A DECISION ON A TREATMENT FOR PT PAIN IN BACK AND NO NOTES HAVE BEEN PUT IN. STAFF STATED THEY WOULD GET BACK WITH THIS NURSE.
[2022-12-15 14:00] VITALS: BP 113/62; PULSE 98; RESP 17; TEMP 35.9; O2SAT 98
[2022-12-15 17:45] VITALS: BP 113/62; PULSE 98
--- NOTE | 2022-12-15 18:49 | NURSING ---
OK PER THERAPY,PT CAN STAND AND USE URINAL WITH OUT HELP.
[2022-12-15] MEDS: ENZALUTAMIDE 40 MG TABLET 160 MG PO (20:47)
[2022-12-15] MEDS: Citalopram 10 MG Tablet PO (20:47)
[2022-12-15] MEDS: Doxazosin 4 MG Tablet 8 MG PO (20:47)
[2022-12-15] MEDS: Atorvastatin Calcium 40 MG Tablet PO (20:48)
[2022-12-15] MEDS: Menthol/Lanolin/Calamine/Znox 113 GM Tube 1 APPLIC TOPICAL (20:51)
[2022-12-16] MEDS: oxyCODONE 5 MG Tablet PO (02:28)
[2022-12-16] MEDS: Senna/Docusate Sodium 1 Tablet 2 TABLET PO (05:07)
[2022-12-16] MEDS: Acetaminophen 500 MG Tablet 1000 MG PO ×3 (05:07→20:56)
[2022-12-16] MEDS: Lidocaine 5% Patch 1 PATCH TOPICAL (05:07)
[2022-12-16] MEDS: Furosemide 40 MG Tablet PO (05:08)
[2022-12-16] MEDS: Losartan Potassium 100 MG Tablet PO (05:08)
[2022-12-16] MEDS: Loratadine 10 MG Tablet PO (05:08)
[2022-12-16] MEDS: Cholecalciferol (VIT D3) 25 MCG TABLET (1,000 UNITS) PO (05:08)
[2022-12-16] MEDS: Arthritis Pain Compound 60 CLICK TUBE TOPICAL ×2 (05:09→17:42)
[2022-12-16 05:10] VITALS: BP 113/59; PULSE 67
[2022-12-16] MEDS: Metoprolol Tartrate 50 MG Tablet PO ×2 (05:10→17:42)
[2022-12-16] MEDS: Nystatin Powder 15gm Bottle 1 APPLIC TOPICAL ×2 (08:43→20:57)
[2022-12-16] MEDS: Potassium Chloride Oral Tablet 20 MEQ PO (08:43)
[2022-12-16 08:45] VITALS: PULSE 64; RESP 18; O2SAT 96
[2022-12-16] MEDS: Pneumococcal Vaccine 20 Valent 0.5 ML Syringe IM (10:20)
--- NOTE | 2022-12-16 10:26 | NURSING ---
PT RECEIVED THE PREVNAR 20 IN LEFT DELT. PT TOLERATED WELL.
[2022-12-16 14:00] VITALS: BP 125/75; PULSE 81; RESP 18; TEMP 36.6; O2SAT 97
--- NOTE | 2022-12-16 14:12 | CASEMGMT ---
Addendum entered by Lizette Prabhakar 12/16/22 14:30: Return message from [facility] and they are able to accept. Discharge papers to be sent when available. JOHN Michaels Original Note: Social Work Insurance issued last covered day of 12/18/22 with discharge of 12/19. SW met with pt and explained insurance decision. Pt confirms he is ready for discharge and agreeable to discharge date of 12/19. Pt will be returning to his home where he lives alone and has a caregiver who provides needed assistance. Team is recommending continued PT/OT/SN/RAYA. Pt is agreeable and preferred provider is [facility], the company pt used prior to admission to hospital. Pt states he has needed DME and pt called caregiver Guillermo who confirms she will be able to transport pt home on 12/19. Referral made to [facility] via [facility]. Discharge Date 12/19/22 Discharge Disposition: Home alone, [facility] PT/OT/SN/RESEARCH INSTRUMENTATION TECHNICIAN JOHN Michaels
[2022-12-16 17:42] VITALS: BP 125/75; PULSE 81
--- NOTE | 2022-12-16 19:23 | DS.PCM_ITS ---
Providers Date of Admission: 12/03/22 Primary Care Physician: Dr. James Pisano MD Consultations 12/08/22 17:19 Consult: Pain Management Routine Consulting Provider: Clark Johnson Reason for Consult: Back pain/hip pain EMERGENT Consult: No MD Notified: Yes Date Notified: 12/09/22 Time Notified: 09:28 Method of Notification: Verbal Reason For Visit: DEBILITY/ FALLS Diagnosis Discharge Diagnosis (1) Debility: Status: Acute Code(s): R53.81 - Other malaise (2) Multiple falls: Status: Acute Code(s): R29.6 - Repeated falls (3) Low back pain: Status: Acute Code(s): M54.50 - Low back pain, unspecified (4) Atrial fibrillation: Status: Acute Code(s): I48.91 - Unspecified atrial fibrillation (5) Hyperlipidemia: Status: Acute Code(s): E78.5 - Hyperlipidemia, unspecified (6) Depression: Status: Acute Code(s): F32.A - Depression, unspecified (7) Allergic rhinitis: Status: Acute Code(s): J30.9 - Allergic rhinitis, unspecified (8) Hypertension: Status: Chronic Code(s): I10 - Essential (primary) hypertension (9) Edema: Status: Acute Code(s): R60.9 - Edema, unspecified (10) Prostate cancer: Status: Acute Code(s): C61 - Malignant neoplasm of prostate Plan 77 year old male with below past medical history hospitalized for multiple falls, low back pain, admitted to TCU with debility, here for rehabilitation, strengthening, prior to discharge home alone. * Debility - PT/OT. * Pain - Tylenol 1000mg q8, Lidoderm patch 1 patch daily. * Bowel - senna/colace 2 tablets bid, MOM 30ml po x 1 prn. * Adult immunization - Administer pneumonia vaccine, covid19 vaccine, flu vaccine as appropriate. * DVT prophylaxis - Not necessary, already on warfarin. * Hyperlipidemia - Atorvastatin 40mg qhs. * Depression - Citalopram 10mg qhs, stable chronc termite renewal inspector use, GDR not recommended. * BPH - Doxazosin 8mg qpm. * Allergic rhinitis - Loratadine 10mg daily, Fluticasone nasal spray 2 sprays daily. * Edema - Furosemide 40mg daily. * Hypertension - Metoprolol 50mg bid, Losartan 100mg daily. * Muscle spasm - Soma 750mg q6h prn. * Hypokalemia - KCL 20meq daily. * Vitamin D deficiency - D3 25mcg daily. * Atrial fibrillation - Metoprolol 50mg bid, Warfarin 5mg daily, monitor INR. * Prostate cancer - Xtandi 160mg po qpm. Medications at Discharge Home Medications potassium chloride 20 mEq tablet,extended release 20 meq PO DAILY supplement 12/03/18 cetirizine 10 mg capsule 10 mg PO DAILY Allergy 12/27/18 metoprolol tartrate 50 mg tablet 50 mg PO BID bp 03/15/19 cholecalciferol (vitamin D3) 1,250 mcg (50,000 unit) capsule 1,000 unit PO DAILY supplement 10/29/20 citalopram 10 mg tablet 10 mg PO QHS depression 12/01/22 furosemide 40 mg tablet 40 mg PO DAILY fluid pill 12/01/22 losartan 100 mg tablet (Cozaar) 100 mg PO DAILY BP 12/01/22 terazosin 10 mg capsule 10 mg PO QPM BPH 12/01/22 acetaminophen 500 mg tablet 1,000 mg PO Q8 pain 12/03/22 atorvastatin 40 mg tablet 40 mg PO QHS 30 days #30 tabs 12/16/22 enzalutamide 40 mg tablet (Xtandi) 160 mg PO QPM #0 tabs 12/16/22 fluticasone propionate 50 mcg/actuation nasal spray,suspension 2 spray NASAL DAILY #0 grams 12/16/22 lidocaine 5 % topical patch 1 patch topical DAILY 30 days #30 ea 12/16/22 oxycodone 5 mg tablet 5 - 10 mg PO Q4H PRN PRN Pain Score 6-10 7 days #28 tabs 12/16/22 promethazine 25 mg tablet 25 mg PO Q4H PRN PRN NAUSEA/VOMITING 30 days #120 tabs 12/16/22 sennosides 8.6 mg-docusate sodium 50 mg tablet (Stool Softener-Stimulant Laxative) 2 tab PO BID 30 days #120 tabs 12/16/22 warfarin 6 mg tablet (Jantoven) 6 mg PO DINNER 30 days #30 tabs 12/16/22 Hospital Course Operations None Procedures None Summary of Care Provided Minutes Spent on Discharge: 35 Hospital Course: 77 year old male with below past medical history hospitalized for multiple falls, low back pain, admitted to TCU with debility, here for rehabilitation, strengthening, prior to discharge home alone. Discharge home alone 12/19/2022, [facility] PT/OT/SN/VEHICLE RETURN ASSOCIATE. Physical Exam Const alert General Appearance: cooperative HEENT normocephalic Eyes PERRL and EOMs intact bilaterally Neck supple, no JVD and no carotid bruits Resp normal respiratory effort, normal air movement and clear to auscultation bilaterally Cardio regular rate and regular rhythm GI normal to inspection, nondistended, normoactive bowel sounds, non-tender and non-distended Extremity normal capillary refill General Extremity: Negative for edema Skin no rashes or lesions noted General Skin Exam: no breakdown Psych affect normal Appearance: appropriate Weight / BMI Weight Weight: 119.386 kg Body Mass Index (BMI) 36.1 ABG / Lab / Microbiology Data Result Diagrams: 12/11/22 05:21 12/11/22 05:21 Microbiology: Microbiology 12/07/22 01:23 Nasal Secretion SARS-CoV-2 Antigen (Rapid) - Final 12/05/22 06:30 Nasal Secretion SARS-CoV-2 Antigen (Rapid) - Final D/C Instructions Discharge Diet: No restrictions Discharge Activity: Return to Normal Activity, May Shower and Use Walker Weight Bearing Status: Weight bearing as tolerated Call your doctor if you observe: Fever of 101 or Higher, Inability to urinate, Inability to have a bowel movement, Shortness of breath, Dizziness, Fainting spells, Swelling in the ankles, Chest pain and Uncontrolled pain Additional Instructions: Discharge home alone 12/19/2022, [facility] PT/OT/SN/VEHICLE RETURN ASSOCIATE. Please Follow Up With: When: As scheduled. Meaningful Use Info Meaningful Use Diagnoses (Choose all that apply): None applicable Discharge Plan Admission Admit Date/Time: 12/03/22 15:00 Primary Reason for Your Visit: Debility. Attending Provider: James Pisano Chi Primary Care Provider: James Pisano Chi Consulting Providers: Clark Johnson Instructions Additional Instructions / Restrictions: Discharge home alone 12/19/2022, [facility] PT/OT/SN/VEHICLE RETURN ASSOCIATE. Discharge Orders/Prescriptions Prescriptions: New atorvastatin 40 mg Tablet 40 mg PO QHS 30 Days Qty: 30 0RF sennosides-docusate sodium [Stool Softener-Stimulant Laxat] 8.6-50 mg Tablet 2 tab PO BID 30 Days Qty: 120 0RF warfarin [Jantoven] 6 mg Tablet 6 mg PO DINNER 30 Days Qty: 30 0RF lidocaine 5 % Adhesive Patch,Medicated 1 patch topical DAILY 30 Days Qty: 30 0RF Protocol: *Topical Application Instructions APPLICATION INSTRUCTIONS: chronic back pain fluticasone propionate 50 mcg/actuation [place],Suspension 2 spray NASAL DAILY Qty: 0 0RF Xtandi 40 mg Tablet 160 mg PO QPM Qty: 0 0RF promethazine 25 mg Tablet 25 mg PO Q4H PRN PRN (Reason: NAUSEA/VOMITING) 30 Days Qty: 120 0RF oxycodone 5 mg Tablet 5 - 10 mg PO Q4H PRN PRN (Reason: Pain Score 6-10) 7 Days Qty: 28 0RF Continued potassium chloride 20 mEq tablet extended release 20 meq PO DAILY cholecalciferol (vitamin D3) 1,250 mcg (50,000 unit) capsule 1,000 unit PO DAILY metoprolol tartrate 50 mg tablet 50 mg PO BID cetirizine 10 MG capsule 10 mg PO DAILY furosemide 40 mg tablet 40 mg PO DAILY Label Comments: TAKE 1 TABLET BY MOUTH EVERY DAY citalopram 10 mg tablet 10 mg PO QHS Label Comments: TAKE 1 TABLET BY MOUTH EVERY DAY losartan [Cozaar] 100 mg tablet 100 mg PO DAILY Label Comments: TAKE 1 TABLET BY MOUTH EVERY DAY terazosin 10 mg capsule 10 mg PO QPM Label Comments: TAKE 1 CAPSULE BY MOUTH EVERYDAY AT BEDTIME acetaminophen 500 mg tablet 1,000 mg PO Q8 Discontinued atorvastatin 80 MG tablet 80 mg PO QHS cromolyn [Nasalcrom] 5.2 mg/spray (4 %) [place],Non-Aerosol 2 spray INTRANASAL DAILY xtendi 160 mg PO/SL QPM methocarbamol 750 mg Tablet 750 mg PO Q6H PRN PRN (Reason: spasms/musculoskeletal pain) Qty: 0 0RF lidocaine 5 % adhesive patch,medicated 1 patch topical DAILY Protocol: *Topical Application Instructions APPLICATION INSTRUCTIONS: Low Back warfarin 5 mg tablet 5 mg PO DAILY Rx Instructions: hold 12/01, 12/02 for elevated inr. Referrals / Follow Up: James Pisano Chi, MD [Primary Care Provider] - Disposition Disposition (needs filled in before D/C Order can be placed): Home Health Service
[2022-12-16] MEDS: Atorvastatin Calcium 40 MG Tablet PO (20:57)
[2022-12-16] MEDS: Citalopram 10 MG Tablet PO (20:58)
[2022-12-16] MEDS: Menthol/Lanolin/Calamine/Znox 113 GM Tube 1 APPLIC TOPICAL (20:58)
[2022-12-16] MEDS: ENZALUTAMIDE 40 MG TABLET 160 MG PO (20:58)
[2022-12-16] MEDS: Doxazosin 4 MG Tablet 8 MG PO (20:58)
[2022-12-17] MEDS: Lidocaine 5% Patch 1 PATCH TOPICAL ×2 (05:39→12:01)
[2022-12-17] MEDS: Arthritis Pain Compound 60 CLICK TUBE TOPICAL ×2 (05:40→17:11)
[2022-12-17] MEDS: Acetaminophen 500 MG Tablet 1000 MG PO ×3 (05:40→21:44)
[2022-12-17 05:41] VITALS: BP 138/76; PULSE 82
[2022-12-17] MEDS: Loratadine 10 MG Tablet PO (05:41)
[2022-12-17] MEDS: Cholecalciferol (VIT D3) 25 MCG TABLET (1,000 UNITS) PO (05:41)
[2022-12-17] MEDS: Furosemide 40 MG Tablet PO (05:41)
[2022-12-17] MEDS: Senna/Docusate Sodium 1 Tablet 2 TABLET PO (05:41)
[2022-12-17] MEDS: Losartan Potassium 100 MG Tablet PO (05:41)
[2022-12-17] MEDS: Metoprolol Tartrate 50 MG Tablet PO ×2 (05:41→17:11)
[2022-12-17] MEDS: Fluticasone 0.05% 1 SPRAY NASAL.SRY 2 SPRAY NASAL (05:42)
[2022-12-17] MEDS: Potassium Chloride Oral Tablet 20 MEQ PO (08:07)
--- NOTE | 2022-12-17 09:01 | CASEMGMT ---
Social Work DC paperwork sent via [employer] to [facility] Ritika Petty, STATISTICAL FINANCIAL ANALYST SECONDARY SPANISH TEACHER
[2022-12-17] MEDS: Nystatin Powder 15gm Bottle 1 APPLIC TOPICAL ×2 (11:13→21:42)
[2022-12-17] MEDS: Menthol/Lanolin/Calamine/Znox 113 GM Tube 1 APPLIC TOPICAL ×2 (11:13→21:42)
[2022-12-17 14:00] VITALS: BP 129/75; PULSE 78; RESP 18; TEMP 36.3; O2SAT 97
[2022-12-17 17:11] VITALS: BP 135/80; PULSE 69
[2022-12-17 21:00] VITALS: PULSE 75; RESP 16; O2SAT 96
[2022-12-17] MEDS: Citalopram 10 MG Tablet PO (21:44)
[2022-12-17] MEDS: Doxazosin 4 MG Tablet 8 MG PO (21:44)
[2022-12-17] MEDS: Atorvastatin Calcium 40 MG Tablet PO (21:44)
[2022-12-17] MEDS: ENZALUTAMIDE 40 MG TABLET 160 MG PO (21:45)
[2022-12-18 05:55] LABS: Absolute Lymphocyte Count 1.19 X10^3/uL (0.83-4.51); Absolute Neutrophil Count 2.4 X10^3/uL (2.0-7.7); Basophil# 0.03 X10^3/uL; Basophil% 0.7 % (0-1); Eosinophil# 0.23 X10^3/uL; Eosinophils% 5.3 % (0-5); Hematocrit 33.5 % (40-54); Hemoglobin 10.8 g/dL (13.0-16.5); Lymphocyte # 1.19 X10^3/ul (0.83-4.51); Lymphocyte % 27.5 % (19-41); Mean Corp Hgb Conc 32.2 g/dL (32-36); Mean Corpuscular Hgb 29.8 pg (27.0-32.0); Mean Corpuscular Volume 92.3 fL (80-94); Mean Platelet Vol. 8.8 fl (6.2-12.0); Monocyte# 0.42 X10^3/uL; Monocyte% 9.7 % (0-10); NRBC Flagged by Analyzer 0 % (0-5); Neutrophil # 2.44 X10^3/uL (2.7-7.7); Neutrophil % 56.3 % (47-70); Platelet Count 166 K/mm3 (150-450); RBC Distribution Width CV 13.2 % (11.6-14.6); RBC Distribution Width SD 45.1 fl (35.1-43.9); Red Blood Count 3.63 M/mm3 (4.6-6.2); White Blood Count 4.3 K/mm3 (4.4-11.0)
[2022-12-18 06:07] LABS: International Normalized Ratio 1.6; Prothrombin Time (Protime)PT. 18.9 SECONDS (11.7-14.9)
[2022-12-18 06:08] VITALS: BP 121/70; PULSE 74
[2022-12-18] MEDS: Losartan Potassium 100 MG Tablet PO (06:08)
[2022-12-18] MEDS: Furosemide 40 MG Tablet PO (06:08)
[2022-12-18] MEDS: Metoprolol Tartrate 50 MG Tablet PO ×2 (06:08→17:56)
[2022-12-18] MEDS: Cholecalciferol (VIT D3) 25 MCG TABLET (1,000 UNITS) PO (06:08)
[2022-12-18] MEDS: Acetaminophen 500 MG Tablet 1000 MG PO ×3 (06:08→21:21)
[2022-12-18] MEDS: Loratadine 10 MG Tablet PO (06:10)
[2022-12-18] MEDS: Potassium Chloride Oral Tablet 20 MEQ PO (06:10)
[2022-12-18 06:12] VITALS: BP 121/70; PULSE 74
[2022-12-18 06:25] LABS: Anion Gap 6 (5-15); BUN 12 mg/dL (7-18); BUN/Creat Ratio 20.2 RATIO (10-20); Calcium,Total 8.9 mg/dL (8.5-10.1); Chloride 105 mmol/L (98-107); Creatinine, Serum 0.59 mg/dL (0.70-1.30); EST Glomerular Filtration Rate 141 mL/min (>60); Est Glom Filt Rate - Afr Amer 171 mL/min (>60); Estimated Creatinine Clearance 70.06 ml/min; Glucose 84 mg/dL (74-106); Potassium 3.8 mmol/L (3.5-5.1); Sodium Level 140 mmol/L (136-145)
[2022-12-18 08:25] VITALS: PULSE 64; RESP 18; O2SAT 94
[2022-12-18] MEDS: Arthritis Pain Compound 60 CLICK TUBE TOPICAL ×2 (09:51→21:18)
[2022-12-18] MEDS: Nystatin Powder 15gm Bottle 1 APPLIC TOPICAL ×2 (09:53→21:22)
[2022-12-18] MEDS: Lidocaine 5% Patch 1 PATCH TOPICAL (09:56)
[2022-12-18 14:00] VITALS: BP 122/56; PULSE 73; RESP 18; TEMP 36.1; O2SAT 96
[2022-12-18 17:56] VITALS: BP 122/56; PULSE 73
[2022-12-18] MEDS: Citalopram 10 MG Tablet PO (21:21)
[2022-12-18] MEDS: Atorvastatin Calcium 40 MG Tablet PO (21:21)
[2022-12-18] MEDS: Doxazosin 4 MG Tablet 8 MG PO (21:21)
[2022-12-18] MEDS: ENZALUTAMIDE 40 MG TABLET 160 MG PO (21:21)
[2022-12-18] MEDS: Menthol/Lanolin/Calamine/Znox 113 GM Tube 1 APPLIC TOPICAL (21:22)
[2022-12-19] MEDS: Fluticasone 0.05% 1 SPRAY NASAL.SRY 2 SPRAY NASAL (05:37)
[2022-12-19 05:38] VITALS: BP 130/76; PULSE 82
[2022-12-19] MEDS: Loratadine 10 MG Tablet PO (05:38)
[2022-12-19] MEDS: Cholecalciferol (VIT D3) 25 MCG TABLET (1,000 UNITS) PO (05:38)
[2022-12-19] MEDS: Lidocaine 5% Patch 1 PATCH TOPICAL (05:38)
[2022-12-19] MEDS: Metoprolol Tartrate 50 MG Tablet PO (05:38)
[2022-12-19] MEDS: Furosemide 40 MG Tablet PO (05:39)
[2022-12-19] MEDS: Senna/Docusate Sodium 1 Tablet 2 TABLET PO (05:39)
[2022-12-19] MEDS: Losartan Potassium 100 MG Tablet PO (05:39)
[2022-12-19] MEDS: Arthritis Pain Compound 60 CLICK TUBE TOPICAL (05:39)
[2022-12-19] MEDS: Acetaminophen 500 MG Tablet 1000 MG PO (05:40)
[2022-12-19] MEDS: Potassium Chloride Oral Tablet 20 MEQ PO (07:49)
--- NOTE | 2022-12-19 10:08 | CASEMGMT ---
Social Work BIMS () and PHQ-9 (12/05) completed for MDS assessment. Ritika Petty MSW [facility]
[2022-12-19 11:06] VITALS: BP 111/62; PULSE 61; RESP 14; TEMP 36.2
== END 2022-12-19 11:05 | disposition home health service (06) | DRG 560 ==
PROVIDERS: Admitting Provider Family Medicine Geriatric Medicine; PCP Family Medicine Geriatric Medicine; Visit Provider Family Medicine Geriatric Medicine
DX: M48.56XD Collapsed vertebra, not elsewhere classified, lumbar region, subsequent encounter for fracture with routine healing (principal); I48.11 Longstanding persistent atrial fibrillation; C61 Malignant neoplasm of prostate; E55.9 Vitamin D deficiency, unspecified; I25.10 Atherosclerotic heart disease of native coronary artery without angina pectoris; E78.5 Hyperlipidemia, unspecified; I10 Essential (primary) hypertension; E87.6 Hypokalemia; F32.A Depression, unspecified; Z79.01 Long term (current) use of anticoagulants; Z87.891 Personal history of nicotine dependence; Z79.899 Other long term (current) drug therapy; Z23 Encounter for immunization
CPT/HCPCS: 36415; 73502; 80048; 85025; 85610; 87426; 87811; 90677; 97110; 97116; 97162; 97166; 97530; 97535; G0009

== ENCOUNTER → 2022-12-19 | Outpatient (CLI) | payer MEDICARE, SELFPAY ==
[2022-12-19 11:08] LABS: International Normalized Ratio 1.6; Prothrombin Time (Protime)PT. 18.9 SECONDS (11.7-14.9)
== END | disposition home or self-care (01) ==
LOC: POLAB3 10:22
PROVIDERS: PCP Family Medicine Geriatric Medicine; Visit Provider Family Medicine Geriatric Medicine
DX: I48.91 Unspecified atrial fibrillation (principal)
CPT/HCPCS: 36415; 85610

== ENCOUNTER → 2023-04-01 | Outpatient (CLI) | payer MEDICARE, SELFPAY ==
[2023-04-01 11:21] LABS: INR Fingerstick 1.7; Prothrombin Time Fingerstick 19.3 SEC (11.7-14.9)
== END | disposition home or self-care (01) ==
LOC: LAB 07:33
PROVIDERS: PCP Family Medicine Geriatric Medicine; Referring Provider Internal Medicine Cardiovascular Disease; Visit Provider Internal Medicine Cardiovascular Disease
DX: I48.11 Longstanding persistent atrial fibrillation (principal); Z79.01 Long term (current) use of anticoagulants
CPT/HCPCS: 36416; 85610

== ENCOUNTER → 2023-04-10 | Outpatient (CLI) | payer MEDICARE, SELFPAY ==
[2023-04-10 11:45] LABS: Absolute Lymphocyte Count 0.78 X10^3/uL (0.83-4.51); Absolute Neutrophil Count 3.1 X10^3/uL (2.0-7.7); Basophil# 0.02 X10^3/uL; Basophil% 0.5 % (0-1); Eosinophils% 4.5 % (0-5); Hematocrit 35.5 % (40-54); Hemoglobin 11.7 g/dL (13.0-16.5); Lymphocyte # 0.78 X10^3/ul (0.83-4.51); Lymphocyte % 17.6 % (19-41); Mean Corpuscular Hgb 29.4 pg (27.0-32.0); Mean Corpuscular Volume 89.2 fL (80-94); Mean Platelet Vol. 8.6 fl (6.2-12.0); Monocyte# 0.38 X10^3/uL; Monocyte% 8.6 % (0-10); NRBC Flagged by Analyzer 0 % (0-5); Neutrophil # 3.06 X10^3/uL (2.7-7.7); Neutrophil % 68.8 % (47-70); Platelet Count 114 K/mm3 (150-450); RBC Distribution Width CV 13.8 % (11.6-14.6); Red Blood Count 3.98 M/mm3 (4.6-6.2); White Blood Count 4.4 K/mm3 (4.4-11.0)
[2023-04-10 11:53] LABS: International Normalized Ratio 1.8; Prothrombin Time (Protime)PT. 20.9 SECONDS (11.7-14.9)
[2023-04-10 12:26] LABS: Vitamin D,25 Hydroxy 63.6 ng/mL
[2023-04-10 12:32] LABS: ALB/GLOB Ratio 0.8 RATIO (0.9-2.4); AST(SGOT) 14 U/L (15-37); Alanine Aminotransfer ALT/SGPT 13 U/L (16-61); Albumin, Serum 3.2 g/dL (3.2-5.0); Alkaline Phosphatase 127 U/L (45-117); Anion Gap 3 (5-15); BUN 15 mg/dL (7-18); BUN/Creat Ratio 24.4 RATIO (10-20); Calcium,Total 9.3 mg/dL (8.5-10.1); Chloride 107 mmol/L (98-107); Creatinine, Serum 0.61 mg/dL (0.70-1.30); EST Glomerular Filtration Rate 136 mL/min (>60); Est Glom Filt Rate - Afr Amer 164 mL/min (>60); Globulin 4.1 g/dL (2.2-4.2); Glucose 100 mg/dL (74-106); Potassium 3.9 mmol/L (3.5-5.1); Protein, Total 7.3 g/dL (6.4-8.2); Sodium Level 140 mmol/L (136-145); Thyroid Stim Hormone (TSH) 2.82 uIU/mL (0.358-3.74)
== END | disposition home or self-care (01) ==
PROVIDERS: Internal Medicine Cardiovascular Disease; PCP Family Medicine Geriatric Medicine; Referring Provider Family Medicine Geriatric Medicine; Visit Provider Family Medicine Geriatric Medicine
DX: I10 Essential (primary) hypertension (principal); I48.11 Longstanding persistent atrial fibrillation; E55.9 Vitamin D deficiency, unspecified; Z79.01 Long term (current) use of anticoagulants
CPT/HCPCS: 36415; 80053; 82306; 84443; 85025; 85610

== ENCOUNTER → 2023-04-24 | Outpatient (CLI) | payer MEDICARE, SELFPAY ==
[2023-04-24 09:32] LABS: International Normalized Ratio 2.3; Prothrombin Time (Protime)PT. 25.8 SECONDS (11.7-14.9)
== END | disposition home or self-care (01) ==
LOC: LAB 08:15
PROVIDERS: PCP Family Medicine Geriatric Medicine; Visit Provider Internal Medicine Cardiovascular Disease
DX: I48.11 Longstanding persistent atrial fibrillation (principal); Z79.01 Long term (current) use of anticoagulants
CPT/HCPCS: 36415; 85610

== ENCOUNTER 2023-05-08 09:15 | Outpatient (RCR) | payer MEDICARE, SELFPAY ==
[2023-04-17 13:18] VITALS: BP 170/83; PULSE 97; RESP 22; TEMP 36.6; BMI 35.6
--- NOTE | 2023-04-17 16:04 | HP.PCM_ITS ---
History of Present Illness Date of Service: 04/17/23 Chief Complaint: Follow-up left lower leg edema and open wounds History of Wound: Patient is a 77-year-old male who presents today as referred by his primary care physician Dr. Pisano for evaluation and management of bilateral lower extremity wounds. He is accompanied to his appointment today by a part-time corporate staff accountant. These wounds have been present for about 2 weeks. They started off as blisters which popped and then became wounds which have just continued to enlarge. He has not had any nausea, vomiting, fevers, chills. He does notice a significant amount of serous drainage, but no purulence. At home, has been washing with soap and water and applying gauze wraps to try to manage the drainage. She has had wounds like this in the past, most recently seen [facility] presentation in July 2021. At that time he did have vascular studies completed. L EAS revealed noncompressible vessels but triphasic waveforms throughout. Venous duplex did not reveal any reflux within the superficial venous system or deep venous system in the lower extremities. He does not wear compression as he is unable to apply it due to limited mobility and neuropathy in both his feet and hands. His corporate staff accountant also notes that she often has a hard time applying the stockings due to his significant swelling and she is not there daily to be able to help. He is interested in receiving home health care to potentially provide extra assistance for him. His medical history is otherwise difficult for hypertension, true fibrillation, CAD status post CABG. He denies history of VTE, CVA/TIA, prior vascular surgical intervention. He is a former smoker, has not smoked in several decades. He not headache. He does spend most of his day sitting, he did recently get a motorized recliner. He does sleep in his recliner. [facility] Medical History Ankle fracture, left Atherosclerotic heart disease of [place] coronary artery without angina pectoris Closed fracture of left hip Closed left humeral fracture Essential hypertension Fall Former tobacco use Fracture of ninth thoracic vertebra (12/27/18) History of Clostridium difficile infection (01/09/19) History of subdural hematoma (post traumatic) (12/27/18) Hyperlipidemia custodial (current) use of anticoagulants Longstanding persistent atrial fibrillation Onycholysis Sepsis Traumatic hemothorax (12/30/18) Venous insufficiency (chronic) (peripheral) Home Medications potassium chloride 20 mEq tablet,extended release 20 meq PO DAILY supplement 12/03/18 [History Last Taken 11/25/21 10:00 20 meq] cetirizine 10 mg capsule 10 mg PO DAILY Allergy 12/27/18 [History Last Taken 11/25/21 10:00 10 mg] metoprolol tartrate 50 mg tablet 50 mg PO BID bp 03/15/19 [History Last Taken 11/25/21 10:00 50 mg] cholecalciferol (vitamin D3) 1,250 mcg (50,000 unit) capsule 1,000 unit PO DAILY supplement 10/29/20 [History Last Taken 11/24/21 22:00 1000 units] citalopram 10 mg tablet 10 mg PO QHS depression 12/01/22 [History Last Taken Unknown] furosemide 40 mg tablet 40 mg PO DAILY fluid pill 12/01/22 [History Last Taken Unknown] losartan 100 mg tablet (Cozaar) 100 mg PO DAILY BP 12/01/22 [History Last Taken Unknown] terazosin 10 mg capsule 10 mg PO QPM BPH 12/01/22 [History Last Taken Unknown] acetaminophen 500 mg tablet 1,000 mg PO Q8 pain 12/03/22 [History Last Taken Unknown] atorvastatin 40 mg tablet 40 mg PO QHS 30 days #30 tabs 12/16/22 [Rx Last Taken Unknown] enzalutamide 40 mg tablet (Xtandi) 160 mg PO QPM #0 tabs 12/16/22 [Rx Last Taken Unknown] fluticasone propionate 50 mcg/actuation nasal spray,suspension 2 spray NASAL DAILY #0 grams 12/16/22 [Rx Last Taken Unknown] lidocaine 5 % topical patch 1 patch topical DAILY 30 days #30 ea 12/16/22 [Rx Last Taken Unknown] oxycodone 5 mg tablet 5 - 10 mg PO Q4H PRN PRN Pain Score 6-10 7 days #28 tabs 12/16/22 [Rx Last Taken Unknown] promethazine 25 mg tablet 25 mg PO Q4H PRN PRN NAUSEA/VOMITING 30 days #120 tabs 12/16/22 [Rx Last Taken Unknown] sennosides 8.6 mg-docusate sodium 50 mg tablet (Stool Softener-Stimulant Laxative) 2 tab PO BID 30 days #120 tabs 12/16/22 [Rx Last Taken Unknown] warfarin 6 mg tablet (Jantoven) 6 mg PO DINNER 30 days #30 tabs 12/16/22 [Rx Last Taken Unknown] warfarin 5 mg tablet 7.5 mg PO .COMPLEX #30 tabs 02/10/23 [Rx Last Taken Unknown] Allergy/AdvReac Type Severity Reaction Status Date / Time amiodarone AdvReac Intermediate It did not Verified 04/17/23 14:15 work, also bad dreams and neuropathy Family History Father , Age 57 Myocardial infarction CAD (coronary artery disease) ETOH abuse Mother , Age 47, of bone cancer Bone cancer Brother , age 45, of AIDS AIDS (acquired immune deficiency syndrome) Surgical History H/O cervical spine surgery (01/2020) H/O coronary artery bypass surgery (11/26/98) History of left heart catheterization (11/26/98) History of left hip hemiarthroplasty History of thoracic spinal fusion (12/30/18) Social History household members: none Smoking Status: Former smoker alcohol intake: never substance use type: does not use Vital Signs Vital Signs Vital Signs: 04/17/23 13:18 Temperature 97.8 F Temperature Source Temporal Pulse Rate 97 Respiratory Rate 22 H Blood Pressure 170/83 H Blood Pressure Mean 112 Blood Pressure Source Monitor Weight Weight: 262 lb 9.778 oz Body Mass Index (BMI) 35.6 Physical Exam Const alert, oriented x3 and no apparent distress General Appearance: cooperative, comfortable and well kempt Nutritional Appearance: obese HEENT normocephalic, head/scalp atraumatic, hearing grossly normal bilaterally and external ears normal Eyes EOMs intact bilaterally General Eye: normal appearance of both eyes Neck General: normal visual inspection and trachea midline Resp normal respiratory effort, no retractions and no use of accessory muscles Effort and Inspection: able to speak in complete sentences; Negative for labored, stridor or audible wheezes Cardio Rate: regular rate Rhythm: abnormal rhythm irregularly irregular Peripheral Pulses: radial pulses present Extremity Extremity Narrative: Multiphasic DP/PT doppler signals bilaterally. Bilateral lower extremities with significant edema, lipodermatosclerosis, multiple scattered fluid-filled blisters. Skin Wound Narrative: Right calf cluster of superficial wounds with moderate slough but pink granulation tissue at the base. Left calf cluster of superficial wounds with moderate slough but pink granulation tissue at the base. Well bleeding with debridement. Neuro oriented x3, CN's II-XII intact bilaterally, moves all extremities and no focal motor deficits Psych mental status grossly normal Appearance: grossly normal Attitude: calm Activity / Motor Behavior: appropriate eye contact Speech: normal speech Debridement Note Debridement Note Wound debrided: L humphrey/calf cluster Laterality: Left Type of Debridement: Excisional debridement Anesthesia Used: 5% Lidocaine Gel Depth: Down to and including healthy tissue Percentage of wound debrided: 100 Instrument Used: 5mm curette Tissue Removed: slough, devitalized tissue Severity: Limited To Skin Breakdown Amount of bleeding with debridement: Mild Bleeding Controlled with: Pressure Patient tolerated procedure: Patient tolerated procedure well Post-Debridement Measurements and Additional Note: Post-Debridement Measurements/Treatment - Nurse 1 - General Ulcer Assessment Start: 04/17/23 13:18 Freq: Status: Active Protocol: VERONICA Activity Type Activity Date Activity User E-sign Co-sign Detail Recorded Client Recorded Date Recorded By Document 04/17/23 13:18 DL [id number] 04/17/23 13:54 DL 04/17/23 13:18 - Today's Visit Information Type of service Initial Visit Arrival Mode Ambulatory, Walker Transfer Assistance None Patient Identification Verified (Name & Yes ) Patient Requires Transmission-Based No Precautions Height and Weight Height 6 ft Weight 262 lb 9.778 oz Weight in Pounds 262.6 lbs Weight Measurement Method Estimated by Patient Body Mass Index (BMI) 35.6 BMI Classification Obese BSA - Peg 2.39 Vital Signs Temperature (97.8 F-99.1 F) 97.8 F Temperature Source Temporal Pulse Rate (60-100) 97 Pulse Location Monitor Respiratory Rate (12-18) 22 H Respiratory rate source Observation Blood Pressure (90/60-120/80) 170/83 H Blood Pressure Mean 112 Source Monitor History Since Last Visit- (Skip if this is Patient's initial visit) Left Footwear Slipper Right Footwear Surgical Shoe with pressure relief insole Pain Scale: 0-10 Numeric Is Patient Pain Free? Yes Lower Extremity Assessment/ Foot Assessment/ Toe Nail Assessment Left -Posterior Tibial Palpable No -Posterior Tibial Doppler Monophasic -Dorsalis Pedis Palpable Yes -Dorsalis Pedis Doppler Multiphasic -Extremity Color Red,Hemosiderin -Hair Growth on Legs No -Hair Growth on Toes No -Temperature of Extremity Warm -Capillary Refill Greater than 3 Seconds -Dependent Rubor Yes -Blanched when Elevated No -Lipodermatosclerosis No -Other Deformity No -Prior Foot Ulcer No -Charcot Joint No -Prior Amputation No -Thick Yes -Discolored Yes -Deformed Yes -Improper Length & Hygeine No Right -Popliteal Doppler Multiphasic -Posterior Tibial Palpable No -Posterior Tibial Doppler Monophasic -Dorsalis Pedis Palpable Yes -Dorsalis Pedis Doppler Multiphasic -Extremity Color Red,Hemosiderin -Hair Growth on Legs No -Hair Growth on Toes No -Temperature of Extremity Warm -Capillary Refill Greater than 3 Seconds -Dependent Rubor Yes -Blanched when Elevated No -Lipodermatosclerosis No -Other Deformity No -Prior Foot Ulcer No -Charcot Joint No -Prior Amputation No -Thick Yes -Discolored Yes -Deformed Yes -Improper Length & Hygeine No Neuropathy Assessment Feet - Top Side and Bottom <Entered> (a) Communication Assessment Preferred language [place] [employer] Manager Required No Able to Read Yes Able to Write Yes Right Hearing Abillity Normal Left Hearing Abillity Normal Visual Assistive Devices Glasses Teaching Assessment Preferences Verbal,Written, Demonstration Barriers to Learning None Readiness To Learn Good Willingness to Engage in Self Management Med Activies Readiness to Engage in Self Management Med Activities Anxiety Level Calm Cooperation Cooperative Perception Coherent Interest in Health Problem Asks Questions Education Importance Acknowledges Need Does Patient Smoke tobacco or other No substances Smoking Status Former smoker Is Patient Diabetic No Functional Assessment Recent Decline in Ability to Perform Denies Any Declines Culture/Sikh/Security Patrol Driver Cultural/Sikh Needs that may affect No Treatment Plan Would you allow our hospital warehouse clerk to No meet you for the purpose of spiritual/ emotional support? Security Patrol Driver to contact place of church No Teaching: Wound Center Control Swelling with Leg Elevation -Person Taught Patient *Welcome to the Wound Center -Person Taught Patient Discharge Instructions -Person Taught Patient Dressing Your Wound -Person Taught Patient (a) 1 - _ 2 - + WC - Nurse 1 - General Ulcer Measurement Start: 04/17/23 13:18 Freq: Status: Active Protocol: Activity Type Activity Date Activity User E-sign Co-sign Detail Recorded Client Recorded Date Recorded By Document 04/17/23 13:18 DL [id number] 04/17/23 13:54 DL 04/17/23 13:18 Wound Center Nurse 1 #5 L Lat LE -Current Size (cm) - Length 2.6 -Current Size (cm) - Width 7 -Current Size (cm) - Depth 0.1 -Total Square Cm 18.2 -Photo Taken Yes -Exudate Amt Medium -Exudate Type Serosanguineous -Wound Margin Indistinct, Non -Visible -Granulation Amt Medium (34-66%) -Granulation Quality Red -Necrosis Amt Medium (34-66%) -Necrotic Tissue Type Adherent Slough -Structure Exposed N/A -Texture (Connie-wound Skin Appearance) Scarring -Moisture (Connie-wound Skin Appearance) Weeping,Dry/ Scaly -Color (Connie-wound Skin Appearance) Erythema, Hemosiderin Staining -Temperature (Connie-wound Skin No Abnormality Appearance) (Pt Warm) -Tenderness on Palpation (Connie-wound No Skin Appearance) -Ulcer Cleansing Soap and Water -Foul Odor after Cleansing No -Anesthetic Used 4% Lidocaine Solution #4 L Humphrey Cluster -Current Size (cm) - Length 6.1 -Current Size (cm) - Width 4 -Current Size (cm) - Depth 0.1 -Total Square Cm 24.4 -Photo Taken Yes -Exudate Amt Medium -Exudate Type Serosanguineous -Wound Margin Indistinct, Non -Visible -Granulation Amt Large (67-100%) -Granulation Quality Red -Necrosis Amt Small (1-33%) -Necrotic Tissue Type Adherent Slough -Structure Exposed N/A -Texture (Connie-wound Skin Appearance) Localized Edema ,Scarring -Moisture (Connie-wound Skin Appearance) Weeping -Color (Connie-wound Skin Appearance) Erythema, Hemosiderin Staining -Temperature (Connie-wound Skin No Abnormality Appearance) (Pt Warm) -Tenderness on Palpation (Connie-wound No Skin Appearance) -Ulcer Cleansing Soap and Water -Foul Odor after Cleansing No -Anesthetic Used 4% Lidocaine Solution #3 R Humphrey cluster -Current Size (cm) - Length 7 -Current Size (cm) - Width 5 -Current Size (cm) - Depth 0.1 -Total Square Cm 35 -Photo Taken Yes -Exudate Amt Medium -Exudate Type Serosanguineous -Wound Margin Indistinct, Non -Visible -Granulation Amt Medium (34-66%) -Granulation Quality [place] -Necrosis Amt Medium (34-66%) -Necrotic Tissue Type Adherent Slough -Structure Exposed N/A -Texture (Connie-wound Skin Appearance) Scarring -Moisture (Connie-wound Skin Appearance) Weeping -Color (Connie-wound Skin Appearance) Erythema, Hemosiderin Staining -Temperature (Connie-wound Skin No Abnormality Appearance) (Pt Warm) -Tenderness on Palpation (Connie-wound No Skin Appearance) -Ulcer Cleansing Soap and Water -Foul Odor after Cleansing No -Anesthetic Used 4% Lidocaine Solution Right Calf (cm) 45.5 Right Ankle (cm) 23.5 Left Calf (cm) 46 Left Ankle (cm) 24.5 WC - Nurse 2 - General Ulcer CM Notes Start: 04/17/23 13:18 Freq: Status: Active Protocol: Activity Type Activity Date Activity User E-sign Co-sign Detail Recorded Client Recorded Date Recorded By Document 04/17/23 15:24 PL [id number] 04/17/23 15:31 PL 04/17/23 15:24 Wound Center Nurse 2 #5 L Lat LE -Time 04:31 -Correct Patient Yes -Correct Side, Site, Position Yes -Correct Procedure Yes -Procedure Performed Yes -Type of Procedure Debridement -Clinical Debridement Subcutaneous -Tissue Removed Subcutaneous -Post Debridement (cm) - Length 10.9 -Post Debridement (cm) - Width 12.0 -Post Debridement (cm) - Depth 0.1 -Total Square (Post) (cm) 130.80 -Area of Debridement (cm) - Length 10.9 -Area of Debridement (cm) - Width 12.0 -Total Square (Area) (cm) 130.80 -Tunneling No -Undermining/Tunneling No -Circular Undermining No -Wound/Ulcer Outcome Not Healed -Ulcer Cleansing Rinsed/ Irrigated with Saline -Foul Odor after Cleansing No -Bioengineered Tissue No -Bleeding Controlled with Pressure -Treatment Response Procedure Tolerated Well -Debridement - Subq, 1st 20sq cm Yes -Debridement, SubQ, ea addt'l 20sq cm 8 or part thereof #4 L Humphrey Cluster -Time 14:31 -Correct Patient Yes -Correct Side, Site, Position Yes -Correct Procedure Yes -Procedure Performed Yes -Type of Procedure Debridement -Clinical Debridement Subcutaneous -Tissue Removed Subcutaneous -Post Debridement (cm) - Length 6.3 -Post Debridement (cm) - Width 6.4 -Post Debridement (cm) - Depth 0.1 -Total Square (Post) (cm) 40.32 -Area of Debridement (cm) - Length 6.3 -Area of Debridement (cm) - Width 6.4 -Total Square (Area) (cm) 40.32 -Tunneling No -Undermining/Tunneling No -Circular Undermining No -Wound/Ulcer Outcome Not Healed -Ulcer Cleansing Rinsed/ Irrigated with Saline -Foul Odor after Cleansing No -Bioengineered Tissue No -Bleeding Controlled with Pressure -Treatment Response Procedure Tolerated Well -Debridement - Subq, 1st 20sq cm No Pain Scale: 0-10 Numeric Is Patient Pain Free? Yes - Nurse 3 - General Ulcer D/C NN Start: 04/17/23 13:18 Freq: Status: Active Protocol: Activity Type Activity Date Activity User E-sign Co-sign Detail Recorded Client Recorded Date Recorded By Document 04/17/23 15:19 [id number] 04/17/23 15:21 04/17/23 15:19 Wound Care Center Nurse 3 #5 L Lat LE -Ulcer Cleansing Rinsed/ Irrigated with Saline -Foul Odor after Cleansing No -Primary Dressing Applied Fibracol Plus 4x4 -Fibracol Plus 4x4 1 #4 L Humphrey Cluster -Ulcer Cleansing Rinsed/ Irrigated with Saline -Foul Odor after Cleansing No -Primary Dressing Applied Fibracol Plus 4x4 -Fibracol Plus 4x4 0 #3 R Humphrey cluster -Ulcer Cleansing Rinsed/ Irrigated with Saline -Foul Odor after Cleansing No -Primary Dressing Applied Fibracol Plus 4x4 -Fibracol Plus 4x4 0 Left -Multi-Layered Wrap Application Multi-Layer Comp - Bilat ($ ) Pain Scale: 0-10 Numeric Is Patient Pain Free? Yes WC - Visit Discharge Discharge Condition Stable Ambulatory Status Ambulatory, Walker Transportation Private Auto Medication Reconcilliation completed & Yes provided to patient/care provider Clinical Summary of Care Provided Yes Additional Wound Wound debrided: Right humphrey/calf cluster Laterality: Right Type of Debridement: Excisional debridement Anesthesia Used: 5% Lidocaine Gel Depth: Down to and including healthy tissue Percentage of wound debrided: 100 Instrument Used: 5mm curette Tissue Removed: slough, devitalized tissue Severity: Limited To Skin Breakdown Amount of bleeding with debridement: Mild Bleeding Controlled with: Pressure Patient tolerated procedure: Patient tolerated procedure well Charges/Coding Visit Charges Office Visits / Consults: [id number] OV L3 New Procedures Integumentary [id number]: [id number] Kassandra subq tissue 20 sq cm/< Assessment/Plan Assessment/Plan (1) Non-pressure chronic ulcer right lower leg, limited to breakdown skin: CODE(S): L97.911 - Non-pressure chronic ulcer of unspecified part of right lower leg limited to breakdown of skin (2) Non-pressure chronic ulcer left lower leg, limited to breakdown skin: CODE(S): L97.921 - Non-pressure chronic ulcer of unspecified part of left lower leg limited to breakdown of skin (3) Edema of both lower legs: CODE(S): R60.0 - Localized edema PLAN: Plan Obtained wound cultures today. Will prescribe antibiotics as indicated by culture and sensitivity. Will apply Fibracol to the ulcers and wrapped with 3M wraps for compression. These will remain in place until patient returns to wound care center on Thursday. He was instructed to keep these clean and dry. If he has significant discomfort he will contact the wound care center. He was also instructed to elevate his legs as much as possible throughout the day and when sleeping to help reduce edema. Avoid prolonged standing or sitting with legs dependent. It is beneficial to increase protein and reduce carbs/sugar in the diet to promote wound healing. Patient will return to wound care center in 1 week.
--- NOTE | 2023-04-24 07:25 | PCM.WC.PN ---
History of Present Illness Date of Service: 04/24/23 Chief Complaint: Follow-up left lower leg edema and open wounds History of Wound: Patient is a 77-year-old male who presents today as referred by his primary care physician Dr. Pisano for evaluation and management of bilateral lower extremity wounds. He is accompanied to his appointment today by a part-time senior php developer. These wounds have been present for about 2 weeks. They started off as blisters which popped and then became wounds which have just continued to enlarge. He has not had any nausea, vomiting, fevers, chills. He does notice a significant amount of serous drainage, but no purulence. At home, has been washing with soap and water and applying gauze wraps to try to manage the drainage. She has had wounds like this in the past, most recently seen at [facility] for similar presentation in July 2021. At that time he did have vascular studies completed. L EAS revealed noncompressible vessels but triphasic waveforms throughout. Venous duplex did not reveal any reflux within the superficial venous system or deep venous system in the lower extremities. He does not wear compression as he is unable to apply it due to limited mobility and neuropathy in both his feet and hands. His senior php developer also notes that she often has a hard time applying the stockings due to his significant swelling and she is not there daily to be able to help. He is interested in receiving home health care to potentially provide extra assistance for him. His medical history is otherwise difficult for hypertension, true fibrillation, CAD status post CABG. He denies history of VTE, CVA/TIA, prior vascular surgical intervention. He is a former smoker, has not smoked in several decades. He not headache. He does spend most of his day sitting, he did recently get a motorized recliner. He does sleep in his recliner. Subjective Subjective He is doing well this week, tolerated the 3M wraps well. It does seem that his feet were wet in the dressings so did instruct him to ensure he is keeping his legs/feet dry at all times. No N/V, F/C, new or worsening pain, erythema, drainage. Objective Data Objective Data Vital Signs: Vital Signs Temp Pulse Resp BP 97.8 F 97 22 H 170/83 H 04/17/23 13:18 04/17/23 13:18 04/17/23 13:18 04/17/23 13:18 Weight: 262 lb 9.778 oz Body Mass Index (BMI) 35.6 Lab / Micro Data Micro: Microbiology 04/17/23 14:45 Wound Abcess - Leg, Left Gram Stain - Final 04/17/23 14:45 Wound Abcess - Leg, Left Wound Culture - Final Meth. resistant Staph. aureus Pseudomonas aeruginosa Corynebacterium striatum 04/17/23 14:45 Wound Abcess - Leg, Left Anaerobic Culture - Final Anaerobic cocci Charges/Coding Procedures Integumentary 111xxx-113xx: 10320 Kassandra subq tissue 20 sq cm/< Physical Exam Const alert, oriented x3 and no apparent distress General Appearance: cooperative, comfortable and well kempt Nutritional Appearance: obese HEENT normocephalic, head/scalp atraumatic, hearing grossly normal bilaterally and external ears normal Eyes EOMs intact bilaterally General Eye: normal appearance of both eyes Neck General: normal visual inspection and trachea midline Resp normal respiratory effort, no retractions and no use of accessory muscles Effort and Inspection: able to speak in complete sentences; Negative for labored, stridor or audible wheezes Cardio Rate: regular rate Rhythm: abnormal rhythm irregularly irregular Peripheral Pulses: radial pulses present Extremity Extremity Narrative: Multiphasic DP/PT doppler signals bilaterally. Bilateral lower extremities with significant edema, lipodermatosclerosis, multiple scattered fluid-filled blisters. Skin Wound Narrative: Right calf cluster of superficial wounds healed. Left calf cluster of superficial wounds with moderate slough but pink granulation tissue at the base. Well bleeding with debridement. Neuro oriented x3, CN's II-XII intact bilaterally, moves all extremities and no focal motor deficits Psych mental status grossly normal Appearance: grossly normal Attitude: calm Activity / Motor Behavior: appropriate eye contact Speech: normal speech Debridement Note Debridement Note Wound debrided: L humphrey/calf cluster Laterality: Left Type of Debridement: Excisional debridement Anesthesia Used: 5% Lidocaine Gel Depth: Down to and including healthy tissue Percentage of wound debrided: 100 Instrument Used: 5mm curette Tissue Removed: slough, devitalized tissue Severity: Limited To Skin Breakdown Amount of bleeding with debridement: Mild Bleeding Controlled with: Pressure Patient tolerated procedure: Patient tolerated procedure well Post-Debridement Measurements and Additional Note: Post-Debridement Measurements/Treatment WC - Nurse 1 - General Ulcer Assessment Start: 04/17/23 13:18 Freq: Status: Active Protocol: WC.LOWEXT Activity Type Activity Date Activity User E-sign Co-sign Detail Recorded Client Recorded Date Recorded By Document 04/17/23 13:18 DL [id number] 04/17/23 13:54 DL 04/17/23 13:18 WC - Today's Visit Information Type of service Initial Visit Arrival Mode Ambulatory, Walker Transfer Assistance None Patient Identification Verified (Name & Yes ) Patient Requires Transmission-Based No Precautions Height and Weight Height 6 ft Weight 262 lb 9.778 oz Weight in Pounds 262.6 lbs Weight Measurement Method Estimated by Patient Body Mass Index (BMI) 35.6 BMI Classification Obese BSA - Peg 2.39 Vital Signs Temperature (97.8 F-99.1 F) 97.8 F Temperature Source Temporal Pulse Rate (60-100) 97 Pulse Location Monitor Respiratory Rate (12-18) 22 H Respiratory rate source Observation Blood Pressure (90/60-120/80) 170/83 H Blood Pressure Mean (mm Hg) 112 Source Monitor History Since Last Visit- (Skip if this is Patient's initial visit) Left Footwear Slipper Right Footwear Surgical Shoe with pressure relief insole Pain Scale: 0-10 Numeric Is Patient Pain Free? Yes Lower Extremity Assessment/ Foot Assessment/ Toe Nail Assessment Left -Posterior Tibial Palpable No -Posterior Tibial Doppler Monophasic -Dorsalis Pedis Palpable Yes -Dorsalis Pedis Doppler Multiphasic -Extremity Color Red,Hemosiderin -Hair Growth on Legs No -Hair Growth on Toes No -Temperature of Extremity Warm -Capillary Refill Greater than 3 Seconds -Dependent Rubor Yes -Blanched when Elevated No -Lipodermatosclerosis No -Other Deformity No -Prior Foot Ulcer No -Charcot Joint No -Prior Amputation No -Thick Yes -Discolored Yes -Deformed Yes -Improper Length & Hygeine No Right -Popliteal Doppler Multiphasic -Posterior Tibial Palpable No -Posterior Tibial Doppler Monophasic -Dorsalis Pedis Palpable Yes -Dorsalis Pedis Doppler Multiphasic -Extremity Color Red,Hemosiderin -Hair Growth on Legs No -Hair Growth on Toes No -Temperature of Extremity Warm -Capillary Refill Greater than 3 Seconds -Dependent Rubor Yes -Blanched when Elevated No -Lipodermatosclerosis No -Other Deformity No -Prior Foot Ulcer No -Charcot Joint No -Prior Amputation No -Thick Yes -Discolored Yes -Deformed Yes -Improper Length & Hygeine No Neuropathy Assessment Feet - Top Side and Bottom <Entered> (a) Communication Assessment Preferred language [place] [employer] [place] Required No Able to Read Yes Able to Write Yes Right Hearing Abillity Normal Left Hearing Abillity Normal Visual Assistive Devices Glasses Teaching Assessment Preferences Verbal,Written, Demonstration Barriers to Learning None Readiness To Learn Good Willingness to Engage in Self Management Med Activies Readiness to Engage in Self Management Med Activities Anxiety Level Calm Cooperation Cooperative Perception Coherent Interest in Health Problem Asks Questions Education Importance Acknowledges Need Does Patient Smoke tobacco or other No substances Smoking Status Former smoker Is Patient Diabetic No Functional Assessment Recent Decline in Ability to Perform Denies Any Declines Culture/Advent/Cabinet Builder Cultural/Advent Needs that may affect No Treatment Plan Would you allow our [facility] ferryboat operator to No meet you for the purpose of spiritual/ emotional support? Cabinet Builder to contact place of orthodox No Teaching: Wound Center Control Swelling with Leg Elevation -Person Taught Patient *Welcome to the Wound Center -Person Taught Patient Discharge Instructions -Person Taught Patient Dressing Your Wound -Person Taught Patient (a) 1 - _ 2 - + WC - Nurse 1 - General Ulcer Measurement Start: 04/17/23 13:18 Freq: Status: Active Protocol: Activity Type Activity Date Activity User E-sign Co-sign Detail Recorded Client Recorded Date Recorded By Document 04/17/23 13:18 DL [id number] 04/17/23 13:54 DL 04/17/23 13:18 Wound Center Nurse 1 #5 L Lat LE -Current Size (cm) - Length 2.6 -Current Size (cm) - Width 7 -Current Size (cm) - Depth 0.1 -Total Square Cm 18.2 -Photo Taken Yes -Exudate Amt Medium -Exudate Type Serosanguineous -Wound Margin Indistinct, Non -Visible -Granulation Amt Medium (34-66%) -Granulation Quality Red -Necrosis Amt Medium (34-66%) -Necrotic Tissue Type Adherent Slough -Structure Exposed N/A -Texture (Connie-wound Skin Appearance) Scarring -Moisture (Connie-wound Skin Appearance) Weeping,Dry/ Scaly -Color (Connie-wound Skin Appearance) Erythema, Hemosiderin Staining -Temperature (Connie-wound Skin No Abnormality Appearance) (Pt Warm) -Tenderness on Palpation (Connie-wound No Skin Appearance) -Ulcer Cleansing Soap and Water -Foul Odor after Cleansing No -Anesthetic Used 4% Lidocaine Solution #4 L Humphrey Cluster -Current Size (cm) - Length 6.1 -Current Size (cm) - Width 4 -Current Size (cm) - Depth 0.1 -Total Square Cm 24.4 -Photo Taken Yes -Exudate Amt Medium -Exudate Type Serosanguineous -Wound Margin Indistinct, Non -Visible -Granulation Amt Large (67-100%) -Granulation Quality Red -Necrosis Amt Small (1-33%) -Necrotic Tissue Type Adherent Slough -Structure Exposed N/A -Texture (Connie-wound Skin Appearance) Localized Edema ,Scarring -Moisture (Connie-wound Skin Appearance) Weeping -Color (Connie-wound Skin Appearance) Erythema, Hemosiderin Staining -Temperature (Connie-wound Skin No Abnormality Appearance) (Pt Warm) -Tenderness on Palpation (Connie-wound No Skin Appearance) -Ulcer Cleansing Soap and Water -Foul Odor after Cleansing No -Anesthetic Used 4% Lidocaine Solution #3 R Humphrey cluster -Current Size (cm) - Length 7 -Current Size (cm) - Width 5 -Current Size (cm) - Depth 0.1 -Total Square Cm 35 -Photo Taken Yes -Exudate Amt Medium -Exudate Type Serosanguineous -Wound Margin Indistinct, Non -Visible -Granulation Amt Medium (34-66%) -Granulation Quality [place] -Necrosis Amt Medium (34-66%) -Necrotic Tissue Type Adherent Slough -Structure Exposed N/A -Texture (Connie-wound Skin Appearance) Scarring -Moisture (Connie-wound Skin Appearance) Weeping -Color (Connie-wound Skin Appearance) Erythema, Hemosiderin Staining -Temperature (Connie-wound Skin No Abnormality Appearance) (Pt Warm) -Tenderness on Palpation (Connie-wound No Skin Appearance) -Ulcer Cleansing Soap and Water -Foul Odor after Cleansing No -Anesthetic Used 4% Lidocaine Solution Right Calf (cm) 45.5 Right Ankle (cm) 23.5 Left Calf (cm) 46 Left Ankle (cm) 24.5 WC - Nurse 2 - General Ulcer CM Notes Start: 04/17/23 13:18 Freq: Status: Active Protocol: Activity Type Activity Date Activity User E-sign Co-sign Detail Recorded Client Recorded Date Recorded By Document 04/17/23 15:24 PL [id number] 04/17/23 15:31 PL 04/17/23 15:24 Wound Center Nurse 2 #5 L Lat LE -Time 04:31 -Correct Patient Yes -Correct Side, Site, Position Yes -Correct Procedure Yes -Procedure Performed Yes -Type of Procedure Debridement -Clinical Debridement Subcutaneous -Tissue Removed Subcutaneous -Post Debridement (cm) - Length 10.9 -Post Debridement (cm) - Width 12.0 -Post Debridement (cm) - Depth 0.1 -Total Square (Post) (cm) 130.80 -Area of Debridement (cm) - Length 10.9 -Area of Debridement (cm) - Width 12.0 -Total Square (Area) (cm) 130.80 -Tunneling No -Undermining/Tunneling No -Circular Undermining No -Wound/Ulcer Outcome Not Healed -Ulcer Cleansing Rinsed/ Irrigated with Saline -Foul Odor after Cleansing No -Bioengineered Tissue No -Bleeding Controlled with Pressure -Treatment Response Procedure Tolerated Well -Debridement - Subq, 1st 20sq cm Yes -Debridement, SubQ, ea addt'l 20sq cm 8 or part thereof #4 L Humphrey Cluster -Time 14:31 -Correct Patient Yes -Correct Side, Site, Position Yes -Correct Procedure Yes -Procedure Performed Yes -Type of Procedure Debridement -Clinical Debridement Subcutaneous -Tissue Removed Subcutaneous -Post Debridement (cm) - Length 6.3 -Post Debridement (cm) - Width 6.4 -Post Debridement (cm) - Depth 0.1 -Total Square (Post) (cm) 40.32 -Area of Debridement (cm) - Length 6.3 -Area of Debridement (cm) - Width 6.4 -Total Square (Area) (cm) 40.32 -Tunneling No -Undermining/Tunneling No -Circular Undermining No -Wound/Ulcer Outcome Not Healed -Ulcer Cleansing Rinsed/ Irrigated with Saline -Foul Odor after Cleansing No -Bioengineered Tissue No -Bleeding Controlled with Pressure -Treatment Response Procedure Tolerated Well -Debridement - Subq, 1st 20sq cm No Pain Scale: 0-10 Numeric Is Patient Pain Free? Yes WC - Nurse 3 - General Ulcer D/C NN Start: 04/17/23 13:18 Freq: Status: Active Protocol: Activity Type Activity Date Activity User E-sign Co-sign Detail Recorded Client Recorded Date Recorded By Document 04/17/23 15:19 JF [id number] 04/17/23 15:21 ANGIE 04/17/23 15:19 Wound Care Center Nurse 3 #5 L Lat LE -Ulcer Cleansing Rinsed/ Irrigated with Saline -Foul Odor after Cleansing No -Primary Dressing Applied Fibracol Plus 4x4 -Fibracol Plus 4x4 1 #4 L Humphrey Cluster -Ulcer Cleansing Rinsed/ Irrigated with Saline -Foul Odor after Cleansing No -Primary Dressing Applied Fibracol Plus 4x4 -Fibracol Plus 4x4 0 #3 R Humphrey cluster -Ulcer Cleansing Rinsed/ Irrigated with Saline -Foul Odor after Cleansing No -Primary Dressing Applied Fibracol Plus 4x4 -Fibracol Plus 4x4 0 Left -Multi-Layered Wrap Application Multi-Layer Comp - Bilat ($ ) Pain Scale: 0-10 Numeric Is Patient Pain Free? Yes WC - Visit Discharge Discharge Condition Stable Ambulatory Status Ambulatory, Walker Transportation Private Auto Medication Reconcilliation completed & Yes provided to patient/care provider Clinical Summary of Care Provided Yes Assessment/Plan Assessment/Plan (1) Non-pressure chronic ulcer right lower leg, limited to breakdown skin: CODE(S): L97.911 - Non-pressure chronic ulcer of unspecified part of right lower leg limited to breakdown of skin (2) Non-pressure chronic ulcer left lower leg, limited to breakdown skin: CODE(S): L97.921 - Non-pressure chronic ulcer of unspecified part of left lower leg limited to breakdown of skin (3) Edema of both lower legs: CODE(S): R60.0 - Localized edema PLAN: Plan Prescribed cefdinir 300mg BID x10 days as per C&S report. Instructed patient to take probiotic while taking the antibiotics and for 1-2 weeks after. RLE wounds are healed. Will apply lotion to the skin. Continue Fibracol to the LLE ulceration and 3M wraps bilaterally for compression. These will remain in place until patient returns to wound care center on Thursday. He was instructed to keep these clean and dry. If he has significant discomfort he will contact the wound care center. He was also instructed to elevate his legs as much as possible throughout the day and when sleeping to help reduce edema. Avoid prolonged standing or sitting with legs dependent. It is beneficial to increase protein and reduce carbs/sugar in the diet to promote wound healing. Patient will return to wound care center in 1 week.
[2023-04-24 12:02] VITALS: BP 134/68; PULSE 86; TEMP 36.3; BMI 35.6
--- NOTE | 2023-05-01 07:29 | PN.PCM_ITS ---
History of Present Illness Date of Service: 05/01/23 Chief Complaint: Follow-up left lower leg edema and open wounds History of Wound: Patient is a 77-year-old male who presents today as referred by his primary care physician Dr. Pisano for evaluation and management of bilateral lower extremity wounds. He is accompanied to his appointment today by a part-time food service counter clerk. These wounds have been present for about 2 weeks. They started off as blisters which popped and then became wounds which have just continued to enlarge. He has not had any nausea, vomiting, fevers, chills. He does notice a significant amount of serous drainage, but no purulence. At home, has been washing with soap and water and applying gauze wraps to try to manage the drainage. She has had wounds like this in the past, most recently seen at [facility] for similar presentation in July 2021. At that time he did have vascular studies completed. L EAS revealed noncompressible vessels but triphasic waveforms throughout. Venous duplex did not reveal any reflux within the superficial venous system or deep venous system in the lower extremities. He does not wear compression as he is unable to apply it due to limited mobility and neuropathy in both his feet and hands. His food service counter clerk also notes that she often has a hard time applying the stockings due to his significant swelling and she is not there daily to be able to help. He is interested in receiving home health care to potentially provide extra assistance for him. His medical history is otherwise difficult for hypertension, true fibrillation, CAD status post CABG. He denies history of VTE, CVA/TIA, prior vascular surgical intervention. He is a former smoker, has not smoked in several decades. He not headache. He does spend most of his day sitting, he did recently get a motorized recliner. He does sleep in his recliner. Subjective Subjective He is doing well this week, tolerated the 3M wraps well, did a better job of keeping dressings dry this week. Significant improvement in wound size. No N/V, F/C, new or worsening pain, erythema, drainage. Objective Data Objective Data Vital Signs: Vital Signs Temp Pulse Resp BP 97.3 F L 86 22 H 134/68 H 04/24/23 12:02 04/24/23 12:02 04/17/23 13:18 04/24/23 12:02 Weight: 262 lb 9.778 oz Body Mass Index (BMI) 35.6 Lab / Micro Data Micro: Microbiology 04/17/23 14:45 Wound Abcess - Leg, Left Gram Stain - Final 04/17/23 14:45 Wound Abcess - Leg, Left Wound Culture - Final Meth. resistant Staph. aureus Pseudomonas aeruginosa Corynebacterium striatum 04/17/23 14:45 Wound Abcess - Leg, Left Anaerobic Culture - Final Anaerobic cocci Charges/Coding Visit Charges Office Visits / Consults: [id number] OV L2 Est Physical Exam Const alert, oriented x3 and no apparent distress General Appearance: cooperative, comfortable and well kempt Nutritional Appearance: obese HEENT normocephalic, head/scalp atraumatic, hearing grossly normal bilaterally and external ears normal Eyes EOMs intact bilaterally General Eye: normal appearance of both eyes Neck General: normal visual inspection and trachea midline Resp normal respiratory effort, no retractions and no use of accessory muscles Effort and Inspection: able to speak in complete sentences; Negative for labored, stridor or audible wheezes Cardio Rate: regular rate Rhythm: abnormal rhythm irregularly irregular Peripheral Pulses: radial pulses present Extremity Extremity Narrative: Multiphasic DP/PT doppler signals bilaterally. Bilateral lower extremities with significant edema, lipodermatosclerosis, multiple scattered fluid-filled blisters. Skin Wound Narrative: Right calf cluster of superficial wounds remain healed. Left calf superficial wound significantly decreased in size, no slough. Neuro oriented x3, CN's II-XII intact bilaterally, moves all extremities and no focal motor deficits Psych mental status grossly normal Appearance: grossly normal Attitude: calm Activity / Motor Behavior: appropriate eye contact Speech: normal speech Debridement Note Debridement Note No debridement was completed: No debridement was completed today Assessment/Plan Assessment/Plan (1) Non-pressure chronic ulcer right lower leg, limited to breakdown skin: CODE(S): L97.911 - Non-pressure chronic ulcer of unspecified part of right lower leg limited to breakdown of skin (2) Non-pressure chronic ulcer left lower leg, limited to breakdown skin: CODE(S): L97.921 - Non-pressure chronic ulcer of unspecified part of left lower leg limited to breakdown of skin (3) Edema of both lower legs: CODE(S): R60.0 - Localized edema PLAN: Plan RLE wounds are healed. LLE ulceration is significantly decreased in size and without slough or necrotic tissue today so no debridement was performed. Continue Fibracol to the LLE ulceration and 3M wraps bilaterally for compression. He was instructed to keep these clean and dry. If he has significant discomfort he will contact the wound care center. He was also instructed to elevate his legs as much as possible throughout the day and when sleeping to help reduce edema. Avoid prolonged standing or sitting with legs dependent. It is beneficial to increase protein and reduce carbs/sugar in the diet to promote wound healing. Patient will return to wound care center in 1 week. I anticipate he will be healed and will then provide a prescription for compression stockings for continued management of edema and to reduce risk of wound recurrence.
[2023-05-01 09:10] VITALS: BP 144/92; PULSE 100; RESP 20; TEMP 36.4; BMI 35.6
--- NOTE | 2023-05-08 07:09 | PN.PCM_ITS ---
History of Present Illness Date of Service: 05/08/23 Chief Complaint: Follow-up left lower leg edema and open wounds History of Wound: Patient is a 77-year-old male who presents today as referred by his primary care physician Dr. Pisano for evaluation and management of bilateral lower extremity wounds. He is accompanied to his appointment today by a part-time room service server. These wounds have been present for about 2 weeks. They started off as blisters which popped and then became wounds which have just continued to enlarge. He has not had any nausea, vomiting, fevers, chills. He does notice a significant amount of serous drainage, but no purulence. At home, has been washing with soap and water and applying gauze wraps to try to manage the drainage. She has had wounds like this in the past, most recently seen at [facility] [place] for similar presentation in July 2021. At that time he did have vascular studies completed. L EAS revealed noncompressible vessels but triphasic waveforms throughout. Venous duplex did not reveal any reflux within the superficial venous system or deep venous system in the lower extremities. He does not wear compression as he is unable to apply it due to limited mobility and neuropathy in both his feet and hands. His room service server also notes that she often has a hard time applying the stockings due to his significant swelling and she is not there daily to be able to help. He is interested in receiving home health care to potentially provide extra assistance for him. His medical history is otherwise difficult for hypertension, true fibrillation, CAD status post CABG. He denies history of VTE, CVA/TIA, prior vascular surgical intervention. He is a former smoker, has not smoked in several decades. He not headache. He does spend most of his day sitting, he did recently get a motorized recliner. He does sleep in his recliner. Subjective Subjective All of the wounds are healed. Lower extremity swelling is significantly improved with compression wraps. He received some compression stockings from Medicare which are not measured. Objective Data Objective Data Vital Signs: Vital Signs Temp Pulse Resp BP 97.6 F L 100 20 H 144/92 H 05/01/23 09:10 05/01/23 09:10 05/01/23 09:10 05/01/23 09:10 Weight: 262 lb 9.778 oz Body Mass Index (BMI) 35.6 Lab / Micro Data Micro: Microbiology 04/17/23 14:45 Wound Abcess - Leg, Left Gram Stain - Final 04/17/23 14:45 Wound Abcess - Leg, Left Wound Culture - Final Meth. resistant Staph. aureus Pseudomonas aeruginosa Corynebacterium striatum 04/17/23 14:45 Wound Abcess - Leg, Left Anaerobic Culture - Final Anaerobic cocci Charges/Coding Visit Charges Office Visits / Consults: [id number] OV L2 Est Physical Exam Const alert, oriented x3 and no apparent distress General Appearance: cooperative, comfortable and well kempt Nutritional Appearance: obese HEENT normocephalic, head/scalp atraumatic, hearing grossly normal bilaterally and external ears normal Eyes EOMs intact bilaterally General Eye: normal appearance of both eyes Neck General: normal visual inspection and trachea midline Resp normal respiratory effort, no retractions and no use of accessory muscles Effort and Inspection: able to speak in complete sentences; Negative for labored, stridor or audible wheezes Cardio Rate: regular rate Rhythm: abnormal rhythm irregularly irregular Peripheral Pulses: radial pulses present Extremity Extremity Narrative: Multiphasic DP/PT doppler signals bilaterally. Bilateral lower extremities with lipodermatosclerosis, edema improved Skin Wound Narrative: Right calf cluster of superficial wounds remain healed. Left calf superficial wound significantly decreased in size, no slough. Neuro oriented x3, CN's II-XII intact bilaterally, moves all extremities and no focal motor deficits Psych mental status grossly normal Appearance: grossly normal Attitude: calm Activity / Motor Behavior: appropriate eye contact Speech: normal speech Debridement Note Debridement Note No debridement was completed: No debridement was completed today Post-Debridement Measurements and Additional Note: Post-Debridement Measurements/Treatment WC - Nurse 1 - General Ulcer Assessment Start: 04/17/23 13:18 Freq: Status: Active Protocol: VERONICA Activity Type Activity Date Activity User E-sign Co-sign Detail Recorded Client Recorded Date Recorded By Document 04/17/23 13:18 DL [id number] 04/17/23 13:54 DL Document 04/24/23 12:02 AK [id number] 04/24/23 12:04 AK Document 05/01/23 09:10 DL [id number] 05/01/23 09:23 DL 04/17/23 04/24/23 05/01/23 13:18 12:02 09:10 WC - Today's Visit Information Type of service Initial Visit Follow-up Visit Follow-up Visit (Physician/HAZARDOUS MATERIALS WASTE TECHNICIAN (Physician/HAZARDOUS MATERIALS WASTE TECHNICIAN ) ) Arrival Mode Ambulatory, Ambulatory Ambulatory, Walker Walker Transfer Assistance None None Patient Identification Verified (Name & Yes Yes Yes ) Patient Requires Transmission-Based No No Precautions Height and Weight Height 6 ft Weight 262 lb 9.778 oz Weight in Pounds 262.6 lbs Weight Measurement Method Estimated by Patient Body Mass Index (BMI) 35.6 35.6 35.6 BMI Classification Obese Obese Obese BSA - Peg 2.39 Vital Signs Temperature (97.8 F-99.1 F) 97.8 F 97.3 F L 97.6 F L Temperature Source Temporal Temporal Temporal Pulse Rate (60-100) 97 86 100 Pulse Location Monitor Monitor Monitor Respiratory Rate (12-18) 22 H 20 H Respiratory rate source Observation Observation Blood Pressure (90/60-120/80) 170/83 H 134/68 H 144/92 H Blood Pressure Mean (mm Hg) 112 90 109 Source Monitor Monitor Monitor History Since Last Visit- (Skip if this is Patient's initial visit) Have you changed medications since your No No last visit? Any new allergies or adverse reactions No No Had a fall/change in ADL's that may No No increase risk of falls Signs or symptoms of abuse and/or No No neglect since last visit Have you been in the hospital since your No No last visit? Has dressing in place as prescribed Yes Yes Has compression in place as prescribed Yes Yes Has offloadiing in place as prescribed N/A N/A Experienced any changes in pain level or No No management Left Footwear Slipper Regular Shoe Right Footwear Surgical Shoe Regular Shoe with pressure relief insole Pain Scale: 0-10 Numeric Is Patient Pain Free? Yes Yes Yes Lower Extremity Assessment/ Foot Assessment/ Toe Nail Assessment Left -Posterior Tibial Palpable No -Posterior Tibial Doppler Monophasic -Dorsalis Pedis Palpable Yes -Dorsalis Pedis Doppler Multiphasic -Extremity Color Red,Hemosiderin -Hair Growth on Legs No -Hair Growth on Toes No -Temperature of Extremity Warm -Capillary Refill Greater than 3 Seconds -Dependent Rubor Yes -Blanched when Elevated No -Lipodermatosclerosis No -Other Deformity No -Prior Foot Ulcer No -Charcot Joint No -Prior Amputation No -Thick Yes -Discolored Yes -Deformed Yes -Improper Length & Hygeine No Right -Popliteal Doppler Multiphasic -Posterior Tibial Palpable No -Posterior Tibial Doppler Monophasic -Dorsalis Pedis Palpable Yes -Dorsalis Pedis Doppler Multiphasic -Extremity Color Red,Hemosiderin -Hair Growth on Legs No -Hair Growth on Toes No -Temperature of Extremity Warm -Capillary Refill Greater than 3 Seconds -Dependent Rubor Yes -Blanched when Elevated No -Lipodermatosclerosis No -Other Deformity No -Prior Foot Ulcer No -Charcot Joint No -Prior Amputation No -Thick Yes -Discolored Yes -Deformed Yes -Improper Length & Hygeine No Neuropathy Assessment Feet - Top Side and Bottom <Entered> (a) Communication Assessment Preferred language Telugu Tutor Required No Able to Read Yes Able to Write Yes Right Hearing Abillity Normal Left Hearing Abillity Normal Visual Assistive Devices Glasses Teaching Assessment Preferences Verbal,Written, Demonstration Barriers to Learning None Readiness To Learn Good Willingness to Engage in Self Management Med Activies Readiness to Engage in Self Management Med Activities Anxiety Level Calm Cooperation Cooperative Perception Coherent Interest in Health Problem Asks Questions Education Importance Acknowledges Need Does Patient Smoke tobacco or other No substances Smoking Status Former smoker Is Patient Diabetic No Functional Assessment Recent Decline in Ability to Perform Denies Any Declines Culture/Sikh/Black Top Paver Operator Cultural/Sikh Needs that may affect No Treatment Plan Would you allow our hospital mason tender restoration labor to No meet you for the purpose of spiritual/ emotional support? Black Top Paver Operator to contact place of mandaeism No Teaching: Wound Center Control Swelling with Leg Elevation -Person Taught Patient *Welcome to the Wound Center -Person Taught Patient Discharge Instructions -Person Taught Patient Dressing Your Wound -Person Taught Patient (a) 1 - _ 2 - + WC - Nurse 1 - General Ulcer Measurement Start: 04/17/23 13:18 Freq: Status: Active Protocol: Activity Type Activity Date Activity User E-sign Co-sign Detail Recorded Client Recorded Date Recorded By Document 04/17/23 13:18 DL [id number] 04/17/23 13:54 DL Document 04/24/23 12:02 AK [id number] 04/24/23 12:04 AK Document 05/01/23 09:10 DL [id number] 05/01/23 09:23 DL 04/17/23 04/24/23 05/01/23 13:18 12:02 09:10 Wound Center Nurse 1 #4 L [place] Cluster -Current Size (cm) - Length 6.1 3.5 -Current Size (cm) - Width 4 1.5 -Current Size (cm) - Depth 0.1 0.1 -Total Square Cm 24.4 5.25 -Photo Taken Yes No -Tunneling No -Undermining/Tunneling No -Circular Undermining No -Change in Wound Grade/Stage No -Exudate Amt Medium Small -Exudate Type Serosanguineous Serosanguineous -Wound Margin Indistinct, Non Distinct, -Visible Outline Attached -Granulation Amt Large (67-100%) Large (67-100%) -Granulation Quality [place] -Slough/Fibrin No -Necrosis Amt Small (1-33%) None Present (0 %) -Necrotic Tissue Type Adherent Slough -Structure Exposed N/A N/A -Texture (Connie-wound Skin Appearance) Localized Edema No Abnormality, ,Scarring Assessed -Moisture (Connie-wound Skin Appearance) Weeping No Abnormality, Assessed -Color (Connie-wound Skin Appearance) Erythema, No Abnormality, Hemosiderin Assessed Staining -Temperature (Connie-wound Skin No Abnormality No Abnormality Appearance) (Pt Warm) (Pt Warm) -Tenderness on Palpation (Connie-wound No No Skin Appearance) -Ulcer Cleansing Soap and Water Rinsed/ Irrigated with Saline -Foul Odor after Cleansing No No -Anesthetic Used 4% Lidocaine 5% Lidocaine Solution Gel #3 R [place] cluster -Combined with other wound No -Current Size (cm) - Length 7 -Current Size (cm) - Width 5 -Current Size (cm) - Depth 0.1 -Total Square Cm 35 -Photo Taken Yes -Exudate Amt Medium -Exudate Type Serosanguineous -Wound Margin Indistinct, Non -Visible -Granulation Amt Medium (34-66%) -Granulation Quality [place] -Necrosis Amt Medium (34-66%) -Necrotic Tissue Type Adherent Slough -Structure Exposed N/A -Texture (Connie-wound Skin Appearance) Scarring -Moisture (Connie-wound Skin Appearance) Weeping -Color (Connie-wound Skin Appearance) Erythema, Hemosiderin Staining -Temperature (Connie-wound Skin No Abnormality Appearance) (Pt Warm) -Tenderness on Palpation (Connie-wound No Skin Appearance) -Ulcer Cleansing Soap and Water -Foul Odor after Cleansing No -Anesthetic Used 4% Lidocaine Solution #5 L Lat LE -Combined with other wound No -Current Size (cm) - Length 2.6 0.1 -Current Size (cm) - Width 7 0.1 -Current Size (cm) - Depth 0.1 0.1 -Total Square Cm 18.2 0.01 -Photo Taken Yes No -Exudate Amt Medium None Present -Exudate Type Serosanguineous -Wound Margin Indistinct, Non Flat & Intact -Visible -Granulation Amt Medium (34-66%) Small (1-33%) -Granulation Quality [place] -Necrosis Amt Medium (34-66%) None Present (0 %) -Necrotic Tissue Type Adherent Slough -Structure Exposed N/A N/A -Texture (Connie-wound Skin Appearance) Scarring Scarring -Moisture (Connie-wound Skin Appearance) Weeping,Dry/ Dry/Scaly Scaly -Color (Connie-wound Skin Appearance) Erythema, Hemosiderin Hemosiderin Staining Staining -Temperature (Connie-wound Skin No Abnormality No Abnormality Appearance) (Pt Warm) (Pt Warm) -Tenderness on Palpation (Connie-wound No No Skin Appearance) -Ulcer Cleansing Soap and Water Soap and Water -Foul Odor after Cleansing No No -Anesthetic Used 4% Lidocaine 5% Lidocaine Solution Gel Right Calf (cm) 45.5 40 37 Right Ankle (cm) 23.5 24 24.4 Left Calf (cm) 46 37 36 Left Ankle (cm) 24.5 24.5 24.4 WC - Nurse 2 - General Ulcer CM Notes Start: 04/17/23 13:18 Freq: Status: Active Protocol: Activity Type Activity Date Activity User E-sign Co-sign Detail Recorded Client Recorded Date Recorded By Document 04/17/23 15:24 PL [id number] 04/17/23 15:31 PL Document 04/24/23 14:27 PL [id number] 04/24/23 14:29 PL Document 05/01/23 10:01 PL [id number] 05/01/23 10:04 PL 04/17/23 04/24/23 05/01/23 15:24 14:27 10:01 Wound Center Nurse 2 #4 L [place] Cluster -Time 14:31 -Correct Patient Yes -Correct Side, Site, Position Yes -Correct Procedure Yes -Procedure Performed Yes No -Type of Procedure Debridement -Clinical Debridement Subcutaneous -Tissue Removed Subcutaneous -Post Debridement (cm) - Length 6.3 -Post Debridement (cm) - Width 6.4 -Post Debridement (cm) - Depth 0.1 -Total Square (Post) (cm) 40.32 -Area of Debridement (cm) - Length 6.3 -Area of Debridement (cm) - Width 6.4 -Total Square (Area) (cm) 40.32 -Tunneling No -Undermining/Tunneling No -Circular Undermining No -Wound/Ulcer Outcome Not Healed Healed- Epithelialized -Ulcer Cleansing Rinsed/ Irrigated with Saline -Foul Odor after Cleansing No -Bioengineered Tissue No -Bleeding Controlled with Pressure -Treatment Response Procedure Tolerated Well -Debridement - Subq, 1st 20sq cm No #3 R [place] cluster -Procedure Performed No -Wound/Ulcer Outcome Healed- Epithelialized #5 L Lat LE -Time 04:31 10:40 09:30 -Correct Patient Yes Yes Yes -Correct Side, Site, Position Yes Yes -Correct Procedure Yes Yes -Procedure Performed Yes Yes No -Type of Procedure Debridement Debridement -Clinical Debridement Subcutaneous Subcutaneous -Tissue Removed Subcutaneous Subcutaneous -Post Debridement (cm) - Length 10.9 4.1 2.4 -Post Debridement (cm) - Width 12.0 2.5 0.2 -Post Debridement (cm) - Depth 0.1 0.1 0.1 -Total Square (Post) (cm) 130.80 10.25 0.48 -Area of Debridement (cm) - Length 10.9 4.1 -Area of Debridement (cm) - Width 12.0 2.5 -Total Square (Area) (cm) 130.80 10.25 -Tunneling No No No -Undermining/Tunneling No No No -Circular Undermining No No No -Wound/Ulcer Outcome Not Healed Not Healed Not Healed -Ulcer Cleansing Rinsed/ Rinsed/ Rinsed/ Irrigated with Irrigated with Irrigated with Saline Saline Saline -Foul Odor after Cleansing No No No -Bioengineered Tissue No No No -Bleeding Controlled with Pressure Pressure -Treatment Response Procedure Procedure Tolerated Well Tolerated Well -Debridement - Subq, 1st 20sq cm Yes Yes -Debridement, SubQ, ea addt'l 20sq cm 8 or part thereof Pain Scale: 0-10 Numeric Is Patient Pain Free? Yes Yes Yes WC - Nurse 3 - General Ulcer D/C NN Start: 04/17/23 13:18 Freq: Status: Active Protocol: Activity Type Activity Date Activity User E-sign Co-sign Detail Recorded Client Recorded Date Recorded By Document 04/17/23 15:19 JF [id number] 04/17/23 15:21 JF Document 04/24/23 11:31 KW [id number] 04/24/23 11:32 KW Document 05/01/23 07:36 PL [id number] 05/04/23 07:37 PL 04/17/23 04/24/23 05/01/23 15:19 11:31 07:36 Wound Care Center Nurse 3 #4 L [place] Cluster -Ulcer Cleansing Rinsed/ Rinsed/ Irrigated with Irrigated with Saline Saline -Foul Odor after Cleansing No -Primary Dressing Applied Fibracol Plus Fibracol Plus 4x4 4x4 -Primary Dressing Covered/Secured with Dry Gauze -Fibracol Plus 4x4 0 1 #3 R [place] cluster -Ulcer Cleansing Rinsed/ Rinsed/ Irrigated with Irrigated with Saline Saline -Foul Odor after Cleansing No -Primary Dressing Applied Fibracol Plus 4x4 -Fibracol Plus 4x4 0 #5 L Lat LE -Ulcer Cleansing Rinsed/ Irrigated with Saline -Foul Odor after Cleansing No -Primary Dressing Applied Fibracol Plus 4x4 -Fibracol Plus 4x4 1 Bilateral -Multi-Layered Wrap Application Multi-Layer Comp - Bilat ($ ) Left -Multi-Layered Wrap Application Multi-Layer Multi-Layer Comp - Bilat ($ Comp - Bilat ($ ) ) Pain Scale: 0-10 Numeric Is Patient Pain Free? Yes Yes Yes - Visit Discharge Discharge Condition Stable Stable Ambulatory Status Ambulatory, Walker Walker Transportation Private Auto Medication Reconcilliation completed & Yes No provided to patient/care provider Clinical Summary of Care Provided Yes Yes Assessment/Plan Assessment/Plan (1) Non-pressure chronic ulcer right lower leg, limited to breakdown skin: CODE(S): L97.911 - Non-pressure chronic ulcer of unspecified part of right lower leg limited to breakdown of skin (2) Non-pressure chronic ulcer left lower leg, limited to breakdown skin: CODE(S): L97.921 - Non-pressure chronic ulcer of unspecified part of left lower leg limited to breakdown of skin (3) Edema of both lower legs: CODE(S): R60.0 - Localized edema PLAN: Plan RLE wounds are healed. LLE ulceration is significantly decreased in size and without slough or necrotic tissue today so no debridement was performed. Continue Fibracol to the LLE ulceration and 3M wraps bilaterally for compression. He was instructed to keep these clean and dry. If he has significant discomfort he will contact the wound care center. He was also instructed to elevate his legs as much as possible throughout the day and when sleeping to help reduce edema. Avoid prolonged standing or sitting with legs dependent. It is beneficial to increase protein and reduce carbs/sugar in the diet to promote wound healing. Patient will return to wound care center in 1 week. I anticipate he will be healed and will then provide a prescription for compression stockings for continued management of edema and to reduce risk of wound recurrence.
[2023-05-08 09:18] VITALS: BP 153/75; PULSE 80; RESP 20; TEMP 36.6; BMI 35.6
[2023-05-08 10:52] LABS: International Normalized Ratio 1.8; Prothrombin Time (Protime)PT. 20.5 SECONDS (11.7-14.9)
== END 2023-05-08 14:28 | disposition home or self-care (01) ==
LOC: WC 09:15
PROVIDERS: PCP Family Medicine Geriatric Medicine; Referring Provider Family Medicine Geriatric Medicine; Visit Provider Physician Assistant
DX: L97.821 Non-pressure chronic ulcer of other part of left lower leg limited to breakdown of skin (principal); L97.811 Non-pressure chronic ulcer of other part of right lower leg limited to breakdown of skin; I48.11 Longstanding persistent atrial fibrillation; E78.5 Hyperlipidemia, unspecified; Z87.891 Personal history of nicotine dependence; I10 Essential (primary) hypertension; R60.0 Localized edema; I25.10 Atherosclerotic heart disease of native coronary artery without angina pectoris; Z79.899 Other long term (current) drug therapy; Z79.01 Long term (current) use of anticoagulants
CPT/HCPCS: 11042; 11045; 29581; 36415; 85610; 87070; 87075; 87077; 87186; 87205; 99213; G0463

== ENCOUNTER → 2023-05-27 | Outpatient (CLI) | payer MEDICARE, SELFPAY ==
[2023-05-27 11:48] LABS: International Normalized Ratio 1.9; Prothrombin Time (Protime)PT. 22.3 SECONDS (11.7-14.9)
== END | disposition home or self-care (01) ==
LOC: LAB 09:01
PROVIDERS: PCP Family Medicine Geriatric Medicine; Referring Provider Internal Medicine Cardiovascular Disease; Visit Provider Internal Medicine Cardiovascular Disease
DX: I48.11 Longstanding persistent atrial fibrillation (principal); Z79.01 Long term (current) use of anticoagulants
CPT/HCPCS: 36415; 85610

== ENCOUNTER → 2023-06-10 | Outpatient (CLI) | payer MEDICARE, SELFPAY ==
[2023-06-10 11:01] LABS: Prothrombin Time (Protime)PT. 23.1 SECONDS (11.7-14.9)
== END | disposition home or self-care (01) ==
LOC: LAB 08:31
PROVIDERS: PCP Family Medicine Geriatric Medicine; Visit Provider Internal Medicine Cardiovascular Disease
DX: I48.11 Longstanding persistent atrial fibrillation (principal); Z79.01 Long term (current) use of anticoagulants
CPT/HCPCS: 36415; 85610

== ENCOUNTER → 2023-07-01 | Outpatient (CLI) | payer MEDICARE, SELFPAY ==
[2023-07-01 12:12] LABS: International Normalized Ratio 1.8; Prothrombin Time (Protime)PT. 21.2 SECONDS (11.7-14.9)
== END | disposition home or self-care (01) ==
LOC: LAB 08:37
PROVIDERS: PCP Family Medicine Geriatric Medicine; Referring Provider Internal Medicine Cardiovascular Disease; Visit Provider Internal Medicine Cardiovascular Disease
DX: I48.11 Longstanding persistent atrial fibrillation (principal); Z79.01 Long term (current) use of anticoagulants
CPT/HCPCS: 36415; 85610

== ENCOUNTER → 2023-07-15 | Outpatient (CLI) | payer MEDICARE, SELFPAY ==
[2023-07-15 10:31] LABS: International Normalized Ratio 2.5; Prothrombin Time (Protime)PT. 27.1 SECONDS (11.7-14.9)
== END | disposition home or self-care (01) ==
LOC: LAB 09:38
PROVIDERS: PCP Family Medicine Geriatric Medicine; Visit Provider Internal Medicine Cardiovascular Disease
DX: I48.11 Longstanding persistent atrial fibrillation (principal); Z79.01 Long term (current) use of anticoagulants
CPT/HCPCS: 36415; 85610

== ENCOUNTER 2023-07-25 07:39 | Observation (INO) | payer MEDICARE, SELFPAY ==
[2023-07-25] VITALS (9 sets, daily range): BP systolic 111–153; BP diastolic 63–110; PULSE 16–110; RESP 18–20; TEMP 36.4–37.7; O2SAT 83–99; BMI 35.9; BMI 36.0
--- NOTE | 2023-07-25 07:57 | ED.VIS.FALL ---
HPI HPI - Fall History of Present Illness Chief Complaint: Fall Informant: patient Occured/Mechanism Occurred: Today Mechanism/Context: Yes same level fall Usually ambulates: Walker Pain/Injury Location: Left hip, Left knee, and back Pain Location: back and lower extremity Quality of Pain: Sharp Worsened by: Movement Relieved by: Nothing Associated Symptoms Associated Symptoms: Negative for Parasthesias, Weakness, Loss of function or Loss of consciousness Narrative Narrative: Presents after a fall that occurred today. Patient states his left leg felt weak and started to give out on him. Patient states that 2 of the caps on his walker have come off and his walker is uneven. Patient states he fell onto his left side. Patient denies any loss of consciousness. Patient is unsure if he hit his head. Patient states his pain is mainly in his back, left hip, and left knee. Patient denies any paresthesias or weakness. Patient denies any other injuries. [facility] Medical History Ankle fracture, left Atherosclerotic heart disease of [place] coronary artery without angina pectoris Atrial fibrillation Closed fracture of left hip Closed left humeral fracture Essential hypertension Fall Former tobacco use Fracture of ninth thoracic vertebra (12/27/18) History of Clostridium difficile infection (01/09/19) History of subdural hematoma (post traumatic) (12/27/18) Hyperlipidemia [facility] (current) use of anticoagulants Longstanding persistent atrial fibrillation Onycholysis Sepsis Traumatic hemothorax (12/30/18) Venous insufficiency (chronic) (peripheral) Home Medications potassium chloride 20 mEq tablet,extended release 20 meq PO DAILY supplement 12/03/18 [History Last Taken 11/25/21 10:00 20 meq] cetirizine 10 mg capsule 10 mg PO DAILY Allergy 12/27/18 [History Last Taken 11/25/21 10:00 10 mg] metoprolol tartrate 50 mg tablet 50 mg PO BID bp 03/15/19 [History Last Taken 11/25/21 10:00 50 mg] cholecalciferol (vitamin D3) 1,250 mcg (50,000 unit) capsule 1,000 unit PO DAILY supplement 10/29/20 [History Last Taken 11/24/21 22:00 1000 units] citalopram 10 mg tablet 10 mg PO QHS depression 12/01/22 [History Last Taken Unknown] furosemide 40 mg tablet 20 mg PO DAILY fluid pill 12/01/22 [History Last Taken Unknown] losartan 100 mg tablet (Cozaar) 100 mg PO DAILY BP 12/01/22 [History Last Taken Unknown] terazosin 10 mg capsule 10 mg PO QPM BPH 12/01/22 [History Last Taken Unknown] acetaminophen 500 mg tablet 1,000 mg PO Q8 pain 12/03/22 [History Last Taken Unknown] enzalutamide 40 mg tablet (Xtandi) 160 mg (4 x 40 mg) PO QPM #0 tabs 12/16/22 [Rx Last Taken Unknown] fluticasone propionate 50 mcg/actuation nasal spray,suspension 2 spray NASAL DAILY #0 grams 12/16/22 [Rx Last Taken Unknown] lidocaine 5 % topical patch 1 patch topical DAILY 30 days #30 ea 12/16/22 [Rx Last Taken Unknown] oxycodone 5 mg tablet 5 - 10 mg (1 - 2 x 5 mg) PO Q4H PRN PRN Pain Score 6-10 7 days #28 tabs 12/16/22 [Rx Last Taken Unknown] promethazine 25 mg tablet 25 mg PO Q4H PRN PRN NAUSEA/VOMITING 30 days #120 tabs 12/16/22 [Rx Last Taken Unknown] warfarin 6 mg tablet (Jantoven) 6 mg PO DINNER 30 days #30 tabs 12/16/22 [Rx Last Taken Unknown] warfarin 5 mg tablet 7.5 mg PO .COMPLEX #30 tabs 02/10/23 [Rx Last Taken Unknown] atorvastatin 40 mg tablet 80 mg PO QHS 07/25/23 [History Last Taken Unknown] sennosides 8.6 mg-docusate sodium 50 mg tablet (Stool Softener-Stimulant Laxative) 2 tab PO BID PRN constipation 07/25/23 [History Last Taken Unknown] Allergy/AdvReac Type Severity Reaction Status Date / Time amiodarone AdvReac Intermediate It did not Verified 07/25/23 07:54 work, also bad dreams and neuropathy Family History Father , Age 57 Myocardial infarction CAD (coronary artery disease) ETOH abuse Mother , Age 47, of bone cancer Bone cancer Brother , age 45, of AIDS AIDS (acquired immune deficiency syndrome) Surgical History H/O cervical spine surgery (01/2020) H/O coronary artery bypass surgery (11/26/98) History of left heart catheterization (11/26/98) History of left hip hemiarthroplasty History of thoracic spinal fusion (12/30/18) Social History (Updated 07/25/23 @ 13:49 by Citlali Pérez) household members: none Smoking Status: Former smoker alcohol intake: current details: once a week substance use type: does not use ROS ROS ED Constitutional Constitutional ED: Denies chills or fever(s) Eyes Eyes: Denies blurry vision or change in vision ENT ENT ED: Reports rhinorrhea; Denies sore throat Cardiovascular Cardiovascular: Denies chest pain or palpitations Respiratory/Chest Respiratory/Chest: Denies cough or dyspnea Gastrointestinal Gastrointestinal: Denies nausea or vomiting Genitourinary Genitourinary ED: Denies dysuria or hematuria Musculoskeletal Musculoskeletal: Reports back pain; Denies neck pain Integumentary Denies abscess or rash Neurologic Neurologic: Denies headache(s) or weakness Allergic/Immunologic Allergic/Immunologic ED: Denies mouth swelling or urticaria EXAM Physical Exam Const Vital Signs: 07/25/23 07:42 07/25/23 07:51 07/25/23 10:30 Temperature 99.8 F H Temperature Source Oral Pulse Rate 110 H 16 L Respiratory Rate 20 H 18 Respiratory Effort Normal Non-Labored Respiratory Depth Normal Respiratory Pattern Normal Blood Pressure 146/80 H 123/110 H Blood Pressure Mean 102 114 Pulse Ox 92 92 Oxygen Delivery Method Room Air Room Air Room Air Positive well nourished, well developed and obese General Appearance ED: well developed and NAD Nutritional Appearance: obese HEENT Reports normocephalic Eyes PERRL and EOMs intact bilaterally Neck full ROM and supple Chest Wall inspection of chest normal and palpation of chest normal Resp clear to auscultation bilaterally Cardio regular rate Rhythm: abnormal rhythm irregularly irregular GI non-tender and non-distended Palpation: soft Back/Spine Back/Spine Narrative: There is some mild tenderness over the lower lumbar spine and paraspinal muscles on the left. There is no bony crepitance or step-off. There is no deformity noted. Range of motion was limited in all motions secondary to pain. Extremity Extremity Narrative: There is tenderness over the anterior aspect of the left hip. There is no obvious deformity noted. Range of motion was limited in all motions of the left hip secondary to pain. There is also mild tenderness of the anterior aspect of the left knee. There is some mild edema. There is no obvious deformity. There is no joint effusion noted. Range of motion was limited in all motions secondary to pain. Pedal pulses are equal bilaterally. Neuro oriented x3, CN's II-XII intact bilaterally, moves all extremities, no focal motor deficits and no sensory deficits noted Ruffin Coma Scale: document GCS findings Spontaneous Obeys Commands Oriented 15 Sensorium / Orientation: alert Psych mental status grossly normal and thought process normal MDM MDM MDM Narrative Medical decision making narrative: Torrential diagnosis includes intracranial bleeding, coagulopathy, hip fracture, patella fracture, lumbosacral strain, lumbar compression fracture, contusion. CT scan of the brain will be obtained to assess for intracranial bleeding. X-rays of the lumbar spine will be obtained to assess for lumbar compression fracture. X-rays of the left hip will be obtained to assess for left hip fracture. X-rays of the left knee will be obtained to assess for patella fracture. CBC will be obtained to assess for leukocytosis and anemia. Basic metabolic profile will be obtained to assess for electrolyte abnormality and renal function. PT with INR and PTT will be obtained to assess for coagulopathy. Lab Data Attestation: I reviewed the patient's lab results. Lab results narrative: CBC was reviewed. There is a slight leukocytosis of 12.9. Hemoglobin was 11.7 and hematocrit was 34.7. Platelets were slightly low at 118. Basic metabolic profile was reviewed and was essentially within normal limits. PT was INR and PTT were reviewed. Pro time was 24.3 and INR is therapeutic at 2.2. PTT was normal at 32.0. Labs: Laboratory Results - last 24 hr 07/25/23 08:23 WBC 12.9 H RBC 3.85 L Hgb 11.7 L Hct 34.7 L MCV 90.1 MCH 30.4 MCHC 33.7 RDW Std Deviation 44.4 H RDW Coeff of Dick 13.6 Plt Count 118 L MPV 10.1 Immature Gran % (Auto) 0.900 Neut % (Auto) 90.4 H Lymph % (Auto) 3.2 L Treasure % (Auto) 5.1 Eos % (Auto) 0.2 Baso % (Auto) 0.2 Absolute Neuts (auto) 11.6 H Absolute Lymphs (auto) 0.41 L Nucleated RBC % 0 PT 24.3 H INR 2.2 APTT 32.0 Sodium 139 Potassium 3.5 Chloride 109 H Carbon Dioxide 27.0 Anion Gap 3 L BUN 18 Creatinine 0.71 Estim Creat Clear Calc 70.06 Est GFR (MDRD) Af Amer 139 Est GFR (MDRD) Non-Af 115 BUN/Creatinine Ratio 25.4 H Glucose 129 H Calcium 8.6 Radiography Diagnostic Testing: Clinical Impression(s) from Imaging Studies Brain CT 07/25/23 08:07 IMPRESSION: Moderate cortical and central atrophy. Moderate chronic microvascular ischemic change. Moderate cerebellar atrophy. Electronically Signed: Feliciano Bernard MD at 9:04 EDT , Hip/Pelvis X-Ray 07/25/23 08:55 IMPRESSION: Left hip arthroplasty. Electronically Signed: Feliciano Bernard MD at 9:14 EDT , Knee X-Ray 07/25/23 08:55 IMPRESSION: Osteoarthritis. Small suprapatellar effusion. Diffuse edema. Electronically Signed: Feliciano Bernard MD at 9:15 EDT , Lumbar Spine X-Ray 07/25/23 08:55 IMPRESSION: Thoracolumbar pedicle screw fusion with moderate wedge deformity L1. Degenerative changes as above. Electronically Signed: Feliciano Bernard MD at 9:16 EDT , CT scan of the brain was obtained. There is no acute intracranial abnormality. This was interpreted by the radiologist and was also independently reviewed by myself. X-rays of the left hip were obtained. There are 3 views. On my independent interpretation, there is no acute fracture or dislocation. There is no loosening of the prosthesis. Radiologist also interpreted the x-rays and agrees. X-rays of the left knee were obtained. There are 4 views. On my independent interpretation, there is no acute fracture or dislocation. There are some degenerative changes noted. There is a small suprapatellar effusion. Radiologist also interpreted the x-rays and agrees. X-rays of the lumbar spine were obtained. There are 3 views. On my independent interpretation, there is a compression fracture of T11 and some degenerative changes. There is no acute fracture noted. Radiologist also interpreted the x-rays and agrees. Management Discussion w/another healthcare provider: Hospitalist (Dr. Pascal) Treatment and Re-Evaluation Narrative: Patient was given injection of morphine and Zofran here. Patient was feeling better on reevaluation. Patient was advised of his findings. Patient will be ambulated with a walker. Patient was unable to ambulate with a walker due to pain and weakness in his left leg. Patient was advised of the need for hospitalization for therapy and rehab. Patient would like to go to the TCU for rehab. Case will be discussed with the hospitalist. Patient understood and was agreeable with the plan. All questions were answered. Discharge Plan Triage Chief Complaint: Fall ED Provider: Gerry Charlton Dx/Rx/DC Orders Clinical Impression: Debility, Closed head injury, Fall, Contusion of left hip, initial encounter, Contusion of left knee, initial encounter, Closed wedge compression fracture of T11 vertebra Primary Care Provider: James Pisano Chi Disposition Disposition: Home, Self Care Discharge Date/Time: 07/25/23 13:10
--- NOTE | 2023-07-25 08:07 | CT_ITS ---
INDICATION: Trauma EXAMINATION: CT BRAIN - CT Head or Brain W/O Contrast Injection TECHNIQUE: Multiple axial images were obtained of the head without intravenous contrast. A radiation dose optimization technique was used for this scan. IV Contrast dosage and agent: None. RADIATION DOSAGE (If Supplied By Facility): CTDIvol = ( 29.71 ) mGy, DLP = ( 537.81 ) mGycm COMPARISON: The 2021. FINDINGS: BRAIN PARENCHYMA: Moderate cortical and central atrophy. Moderate cerebellar atrophy. CSF SPACES: Moderate central atrophy. CALVARIUM, SKULL BASE, PARANASAL SINUSES AND MASTOID AIR CELLS: Clear. No discrete lytic or blastic abnormalities. ORBITS: Both globes, extraocular muscles, optic nerves and retrobulbar fat appear unremarkable. ASPECTS Score for Acute Strokes: [address]/Brain/Head without Contrast IMPRESSION: Moderate cortical and central atrophy. Moderate chronic microvascular ischemic change. Moderate cerebellar atrophy. Electronically Signed: Feliciano Bernard MD at 9:04 EDT ,
[2023-07-25] MEDS: Ondansetron 4 MG/2 ML Vial IV (08:29)
[2023-07-25] MEDS: Morphine 4 MG/ML Syringe IV ×2 (08:29→13:02)
[2023-07-25 08:38] LABS: Absolute Lymphocyte Count 0.41 X10^3/uL (0.83-4.51); Absolute Neutrophil Count 11.6 X10^3/uL (2.0-7.7); Basophil# 0.02 X10^3/uL; Basophil% 0.2 % (0-1); Eosinophil# 0.02 X10^3/uL; Eosinophils% 0.2 % (0-5); Hematocrit 34.7 % (40-54); Hemoglobin 11.7 g/dL (13.0-16.5); Lymphocyte # 0.41 X10^3/ul (0.83-4.51); Lymphocyte % 3.2 % (19-41); Mean Corp Hgb Conc 33.7 g/dL (32-36); Mean Corpuscular Hgb 30.4 pg (27.0-32.0); Mean Corpuscular Volume 90.1 fL (80-94); Mean Platelet Vol. 10.1 fl (6.2-12.0); Monocyte# 0.65 X10^3/uL; Monocyte% 5.1 % (0-10); NRBC Flagged by Analyzer 0 % (0-5); Neutrophil # 11.64 X10^3/uL (2.7-7.7); Neutrophil % 90.4 % (47-70); POSITIVE DIFFERENTIAL YES; Platelet Count 118 K/mm3 (150-450); RBC Distribution Width CV 13.6 % (11.6-14.6); RBC Distribution Width SD 44.4 fl (35.1-43.9); Red Blood Count 3.85 M/mm3 (4.6-6.2); White Blood Count 12.9 K/mm3 (4.4-11.0)
[2023-07-25 08:39] LABS: Differential Indicated SCAN CRITERIA MET
[2023-07-25 08:49] LABS: International Normalized Ratio 2.2; Prothrombin Time (Protime)PT. 24.3 SECONDS (11.7-14.9)
[2023-07-25 08:50] LABS: Anion Gap 3 (5-15); BUN 18 mg/dL (7-18); BUN/Creat Ratio 25.4 RATIO (10-20); Calcium,Total 8.6 mg/dL (8.5-10.1); Chloride 109 mmol/L (98-107); Creatinine, Serum 0.71 mg/dL (0.70-1.30); EST Glomerular Filtration Rate 115 mL/min (>60); Est Glom Filt Rate - Afr Amer 139 mL/min (>60); Estimated Creatinine Clearance 70.06 ml/min; Glucose 129 mg/dL (74-106); Potassium 3.5 mmol/L (3.5-5.1); Sodium Level 139 mmol/L (136-145)
--- NOTE | 2023-07-25 08:55 | RAD_ITS ---
INDICATION: Injury/Pain EXAMINATION/TECHNIQUE: X-RAY - XR Hip Unilateral with Pelvis when performed; 2-3 Views COMPARISON: FINDINGS: PELVIC BONES: No displaced fracture, destructive or sclerotic lesions. Note that overlapping bowel shadows may however obscure fine detail. Sacroiliac joints are unremarkable. No widening of the pubic symphysis. HIPS: Status post left hip arthroplasty with normal articulation between acetabulum and femoral components. SOFT TISSUES: No soft tissue swelling or gas. RAD/HIP, UNI W/ Pelvis 2-3 Views IMPRESSION: Left hip arthroplasty. Electronically Signed: Feliciano Bernard MD at 9:14 EDT ,
--- NOTE | 2023-07-25 08:55 | RAD_ITS ---
INDICATION: Injury/Pain EXAMINATION/TECHNIQUE: X-RAY - LEFT XR Knee Complete 4 Views or More 4 VIEWS COMPARISON: FINDINGS: SOFT TISSUES: Diffuse subcutaneous edema. Small suprapatellar joint effusion. BONES/JOINTS: Moderate tricompartmental joint space narrowing. RAD/Knee 4 or More Views IMPRESSION: Osteoarthritis. Small suprapatellar effusion. Diffuse edema. Electronically Signed: Feliciano Bernard MD at 9:15 EDT ,
--- NOTE | 2023-07-25 08:55 | RAD_ITS ---
INDICATION: Injury/Pain EXAMINATION/TECHNIQUE: X-RAY - XR Spine Lumbar 2 or 3 Views COMPARISON: FINDINGS: VERTEBRAE: Moderate wedge deformity L1 with pedicle screw fusion extending from lower thoracic region to the L1 level. Moderate diffuse loss of disc space height. DISCS: Moderate loss of disc space height throughout lumbar spine. INCLUDED ABDOMEN: Included bowel gas pattern is non-obstructive. RAD/Lumbar Spine 2 or 3 Views IMPRESSION: Thoracolumbar pedicle screw fusion with moderate wedge deformity L1. Degenerative changes as above. Electronically Signed: Feliciano Bernard MD at 9:16 EDT ,
[2023-07-25] MEDS: Acetaminophen 500 MG Tablet 1000 MG PO ×2 (14:33→21:50)
--- NOTE | 2023-07-25 16:57 | HP.PCM.HOS_ITS ---
HPI - General General Date of Admission: 07/25/23 HPI Narrative MEENAKSHI NI, is a 77 M who presents to the hospital after mechanical fall today. He states that he fell onto his left side because his left leg felt weak and his walker is insert addendum. They were attempting to get discharged ER in a lot of pain and debility therefore they recommended admission for physical therapy evaluation. He denies any fevers or chills, no shortness of breath and he states that he does have history of sinus infections and his white count is elevated on admission however he also has had issues with C. difficile in the past, denies any headaches or sinus pressure at this time. 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) use of anticoagulants Longstanding persistent atrial fibrillation Onycholysis Sepsis Traumatic hemothorax (12/30/18) Venous insufficiency (chronic) (peripheral) Home Medications potassium chloride 20 mEq tablet,extended release 20 meq PO DAILY supplement 12/03/18 [History Last Taken 07/24/23] cetirizine 10 mg capsule 10 mg PO DAILY Allergy 12/27/18 [History Last Taken 07/24/23] metoprolol tartrate 50 mg tablet 50 mg PO BID bp 03/15/19 [History Last Taken 07/24/23] cholecalciferol (vitamin D3) 1,250 mcg (50,000 unit) capsule 1,000 unit PO DAILY supplement 10/29/20 [History Last Taken 07/24/23] citalopram 10 mg tablet 10 mg PO QHS depression 12/01/22 [History Last Taken 07/24/23] furosemide 40 mg tablet 20 mg PO DAILY fluid pill 12/01/22 [History Last Taken 07/24/23] losartan 100 mg tablet (Cozaar) 100 mg PO DAILY BP 12/01/22 [History Last Taken Unknown] terazosin 10 mg capsule 10 mg PO QPM BPH 12/01/22 [History Last Taken 07/24/23] acetaminophen 500 mg tablet 1,000 mg PO Q8 pain 12/03/22 [History Last Taken 07/24/23] enzalutamide 40 mg tablet (Xtandi) 160 mg (4 x 40 mg) PO QPM #0 tabs 12/16/22 [Rx Last Taken 07/24/23] fluticasone propionate 50 mcg/actuation nasal spray,suspension 2 spray NASAL SAVAGE LY #0 grams 12/16/22 [Rx Last Taken 07/24/23] lidocaine 5 % topical patch 1 patch topical DAILY 30 days #30 ea 12/16/22 [Rx Last Taken Unknown] oxycodone 5 mg tablet 5 - 10 mg (1 - 2 x 5 mg) PO Q4H PRN PRN Pain Score 6-10 7 days #28 tabs 12/16/22 [Rx Last Taken Unknown] promethazine 25 mg tablet 25 mg PO Q4H PRN PRN NAUSEA/VOMITING 30 days #120 tabs 12/16/22 [Rx Last Taken Unknown] warfarin 5 mg tablet 7.5 mg PO .COMPLEX #30 tabs 02/10/23 [Rx Last Taken 07/24/23] atorvastatin 40 mg tablet 80 mg PO QHS 07/25/23 [History Last Taken 07/24/23] sennosides 8.6 mg-docusate sodium 50 mg tablet (Stool Softener-Stimulant Laxative) 2 tab PO BID PRN constipation 07/25/23 [History Last Taken Unknown] warfarin 6 mg tablet (Jantoven) 9 mg PO DINNER 07/25/23 [History Last Taken 07/22/23] Allergy/AdvReac Type Severity Reaction Status Date / Time amiodarone AdvReac Intermediate It did not Verified 07/25/23 07:54 work, also bad dreams and neuropathy Family History Father , Age 57 Myocardial infarction CAD (coronary artery disease) ETOH abuse Mother , Age 47, of bone cancer Bone cancer Brother , age 45, of AIDS AIDS (acquired immune deficiency syndrome) Surgical History H/O cervical spine surgery (01/2020) H/O coronary artery bypass surgery (11/26/98) History of left heart catheterization (11/26/98) History of left hip hemiarthroplasty History of thoracic spinal fusion (12/30/18) Social History (Updated 07/25/23 @ 13:49 by Citlali Pérez) household members: none Smoking Status: Former smoker alcohol intake: current details: once a week substance use type: does not use ROS Constitutional Constitutional: Reports chills and weakness; Denies fatigue, fever(s) or malaise Eyes Eyes: Denies blurry vision ENT HEENT: Reports post nasal drip; Denies headache(s), nasal discharge or sinus pressure Cardiovascular Cardiovascular: Denies chest pain, dyspnea on exertion or syncope Respiratory/Chest Respiratory/Chest: Denies cough, shortness of breath at rest or shortness of breath with exertion Gastrointestinal Gastrointestinal: Denies constipation, diarrhea, nausea or vomiting Genitourinary Genitourinary: Denies dysuria Neurologic Neurologic: Denies focal weakness, numbness or tremor(s) Psychiatric Psychiatric: Denies anxiety or depression Vital Signs Vital Signs Vital Signs: 07/25/23 07:42 07/25/23 07:51 07/25/23 10:30 Temperature 99.8 F H Temperature Source Oral Pulse Rate 110 H 16 L Respiratory Rate 20 H 18 Respiratory Effort Normal Non-Labored Respiratory Depth Normal Respiratory Pattern Normal Blood Pressure 146/80 H 123/110 H Blood Pressure Mean 102 114 Blood Pressure Source Blood Pressure Position Blood Pressure Location Pulse Ox 92 92 Oxygen Delivery Method Room Air Room Air Room Air Oxygen Flow Rate (L/min) 07/25/23 11:29 07/25/23 11:30 07/25/23 11:38 Temperature 97.6 F L Temperature Source Oral Pulse Rate 71 Respiratory Rate 20 H Respiratory Effort Respiratory Depth Respiratory Pattern Blood Pressure 135/79 H Blood Pressure Mean 97 Blood Pressure Source Blood Pressure Position Blood Pressure Location Pulse Ox 83 93 93 Oxygen Delivery Method Room Air Nasal Cannula Nasal Cannula Oxygen Flow Rate (L/min) 1 2 07/25/23 13:08 07/25/23 13:27 07/25/23 14:00 Temperature 97.6 F L Temperature Source Oral Pulse Rate 69 91 Respiratory Rate 18 19 H Respiratory Effort Normal Non-Labored Respiratory Depth Normal Respiratory Pattern Normal Blood Pressure 152/84 H 145/79 H Blood Pressure Mean 106 101 Blood Pressure Source Monitor Blood Pressure Position Semi-Fowlers Blood Pressure Location Right Arm Pulse Ox 98 99 Oxygen Delivery Method Nasal Cannula Nasal Cannula Nasal Cannula Oxygen Flow Rate (L/min) 2 2 2 07/25/23 16:10 Temperature 98.1 F Temperature Source Oral Pulse Rate 65 Respiratory Rate 18 Respiratory Effort Respiratory Depth Respiratory Pattern Blood Pressure 111/63 Blood Pressure Mean 79 Blood Pressure Source Monitor Blood Pressure Position Semi-Fowlers Blood Pressure Location Right Arm Pulse Ox 98 Oxygen Delivery Method Nasal Cannula Oxygen Flow Rate (L/min) 2 Weight Weight: 265 lb 10.512 oz Body Mass Index (BMI) 36.0 Physical Exam Narrative General: Alert, Oriented x3, Cooperative, No apparent distress HEENT: Atraumatic, PERRLA, EOMI, Normocephalic, no sinus tenderness Oral: Moist Mucosa Neck: Supple, No JVD Lungs: Diminished, Normal air movement, No rhonchi, No wheeze, No rales Cardiovascular: Regular rate, Regular Rhythm, Normal S1, Normal S2, No murmurs Abdomen: Soft, Non Tender, Non-Distended, No Hepato-splenomegaly Extremities: No edema, Capillary Refill Less than 3 Seconds Skin: No rashes, No breakdown Musculoskeletal: No Tenderness to Palpation of Joints or Extremities Neurological: Motor Exam 5/5 strength throughout, Sensory exam intact to light touch and pain Psych/Mental Status: Normal Affect, Appropriate Results Lab / Micro Data 07/26/23 05:45 07/26/23 05:45 Labs: Laboratory Results - last 24 hr 07/25/23 08:23: WBC 12.9 H, RBC 3.85 L, Hgb 11.7 L, Hct 34.7 L, MCV 90.1, MCH 30.4, MCHC 33.7, RDW Std Deviation 44.4 H, RDW Coeff of Dick 13.6, Plt Count 118 L, MPV 10.1, Immature Gran % (Auto) 0.900, Neut % (Auto) 90.4 H, Lymph % (Auto) 3.2 L, [place] % (Auto) 5.1, Eos % (Auto) 0.2, Baso % (Auto) 0.2, Absolute Neuts (auto) 11.6 H, Absolute Lymphs (auto) 0.41 L, Nucleated RBC % 0, PT 24.3 H, INR 2.2, APTT 32.0, Sodium 139, Potassium 3.5, Chloride 109 H, Carbon Dioxide 27.0, Anion Gap 3 L, BUN 18, Creatinine 0.71, Estim Creat Clear Calc 70.06, Est GFR (MDRD) Af Amer 139, Est GFR (MDRD) Non-Af 115, BUN/Creatinine Ratio 25.4 H, Glucose 129 H, Calcium 8.[address] 07/25/23 08:07 IMPRESSION: Moderate cortical and central atrophy. Moderate chronic microvascular ischemic change. Moderate cerebellar atrophy. Electronically Signed: Feliciano Bernard MD at 9:04 EDT , Hip/Pelvis X-Ray 07/25/23 08:55 IMPRESSION: Left hip arthroplasty. Electronically Signed: Feliciano Bernard MD at 9:14 EDT Reading Location ID and State: [facility] / [place] Tel , Service support , Knee X-Ray 07/25/23 08:55 IMPRESSION: Osteoarthritis. Small suprapatellar effusion. Diffuse edema. Electronically Signed: Feliciano Bernard MD at 9:15 EDT , Lumbar Spine X-Ray 07/25/23 08:55 IMPRESSION: Thoracolumbar pedicle screw fusion with moderate wedge deformity L1. Degenerative changes as above. Electronically Signed: Feliciano Bernard MD at 9:16 EDT , Assessment & Plan Assessment/Plan (1) Fall: PLAN: Plan 1. Mechanical fall due to adult failure to thrive and debility ? PT/OT ? He states that his walker is uneven and that his leg gave out ? Imaging is negative for any acute fractures, he does have a T11 wedge compression which is the last vertebra of his T9-T11 fusion this does not appear to be a acute he has a known L4 compression fracture ? We will continue with pain medication ? He did have a leukocytosis on admission and I discussed with him that if he continues to have an elevated white blood cell count can start antibiotic for possible sinus infection however I was reticent to be that aggressive given his history of C. difficile 2. HTN/HLD/A-fib ? Blood pressures are stable we will resume his home blood pressure medications ? Resume Coumadin, INR is therapeutic ? Continue with Lipitor 3. History of prostate cancer/BPH ? Can resume his home Xtandi, family can bring it in ? Continue with terazosin DVT: Coumadin 76 minutes was spent on direct patient care, including documentation as well as chart review and collaboration with colleagues Charges/Coding Visit Charges Inpatient E&M: 77965 Init Hosp L3
[2023-07-25] MEDS: oxyCODONE 5 MG Tablet PO (20:10)
[2023-07-26] VITALS (8 sets, daily range): BP systolic 102–156; BP diastolic 58–71; PULSE 76–88; RESP 18; TEMP 36.3–37.9; O2SAT 96–99
[2023-07-26] MEDS: 0.9% Saline Lock 10 ML Syringe IV (01:29)
[2023-07-26] MEDS: Ondansetron 4 MG/2 ML Vial IV (01:29)
[2023-07-26] MEDS: oxyCODONE 5 MG Tablet PO ×2 (02:10→23:40)
[2023-07-26] MEDS: Acetaminophen 500 MG Tablet 1000 MG PO ×3 (06:09→21:04)
[2023-07-26 06:32] LABS: Absolute Neutrophil Count 6.8 X10^3/uL (2.0-7.7); Basophil# 0.03 X10^3/uL; Basophil% 0.4 % (0-1); Eosinophil# 0.03 X10^3/uL; Eosinophils% 0.4 % (0-5); Hematocrit 32.8 % (40-54); Hemoglobin 10.9 g/dL (13.0-16.5); Lymphocyte % 10.8 % (19-41); Mean Corp Hgb Conc 33.2 g/dL (32-36); Mean Corpuscular Hgb 29.9 pg (27.0-32.0); Mean Corpuscular Volume 89.9 fL (80-94); Mean Platelet Vol. 9.8 fl (6.2-12.0); Monocyte# 0.53 X10^3/uL; Monocyte% 6.3 % (0-10); NRBC Flagged by Analyzer 0.2 % (0-5); Neutrophil # 6.83 X10^3/uL (2.7-7.7); Neutrophil % 81.6 % (47-70); POSITIVE COUNT YES; Platelet Count 96 K/mm3 (150-450); RBC Distribution Width CV 13.4 % (11.6-14.6); Red Blood Count 3.65 M/mm3 (4.6-6.2); White Blood Count 8.4 K/mm3 (4.4-11.0)
[2023-07-26 07:15] LABS: Anion Gap 4 (5-15); BUN 13 mg/dL (7-18); BUN/Creat Ratio 24.6 RATIO (10-20); Calcium,Total 8.8 mg/dL (8.5-10.1); Chloride 106 mmol/L (98-107); Creatinine, Serum 0.53 mg/dL (0.70-1.30); EST Glomerular Filtration Rate 161 mL/min (>60); Est Glom Filt Rate - Afr Amer 195 mL/min (>60); Estimated Creatinine Clearance 70.06 ml/min; Glucose 116 mg/dL (74-106); Potassium 3.4 mmol/L (3.5-5.1); Sodium Level 139 mmol/L (136-145)
--- NOTE | 2023-07-26 10:16 | PN.HOSP_ITS ---
Subjective Subjective Doing well, no issues overnight Objective Data Objective Data Vital Signs: Vital Signs Temp Pulse Resp BP Pulse Ox O2 Del Method O2 Flow Rate 97.5 F L 76 18 156/69 H 96 Nasal Cannula 2 07/26/23 03:40 07/26/23 03:40 07/26/23 03:40 07/26/23 03:40 07/26/23 03:40 07/26/23 07:50 07/26/23 07:50 Oxygen Flow Rate (L/min) 2 Oxygen Delivery Method Nasal Cannula Weight: 265 lb 10.512 oz Body Mass Index (BMI) 36.0 Intake & Output: Intake and Output for Last 24 Hours 07/25/23 07/26/23 07/27/23 03:59 03:59 03:59 Intake Total 260 / 260 150 / 150 Output Total 350 / 350 400 / 400 Balance -90 / -90 -250 / -250 Lab / Micro Data 07/26/23 05:45 07/26/23 05:45 Labs: Laboratory Results - last 24 hr 07/26/23 05:45: WBC 8.4, RBC 3.65 L, Hgb 10.9 L, Hct 32.8 L, MCV 89.9, MCH 29.9, MCHC 33.2, RDW Std Deviation 44.0 H, RDW Coeff of Dick 13.4, Plt Count 96 L, MPV 9.8, Immature Gran % (Auto) 0.500, Neut % (Auto) 81.6 H, Lymph % (Auto) 10.8 L, [place] % (Auto) 6.3, Eos % (Auto) 0.4, Baso % (Auto) 0.4, Absolute Neuts (auto) 6.8, Absolute Lymphs (auto) 0.90, Nucleated RBC % 0.2, Sodium 139, Potassium 3.4 L, Chloride 106, Carbon Dioxide 29.0, Anion Gap 4 L, BUN 13, Creatinine 0.53 L, Estim Creat Clear Calc 70.06, Est GFR (MDRD) Af Amer 195, Est GFR (MDRD) Non-Af 161, BUN/Creatinine Ratio 24.6 H, Glucose 116 H, Calcium 8.8 Physical Exam Narrative General: Alert, Oriented x3, Cooperative, No apparent distress HEENT: Atraumatic, PERRLA, EOMI, Normocephalic, no sinus tenderness Oral: Moist Mucosa Neck: Supple, No JVD Lungs: Diminished, Normal air movement, No rhonchi, No wheeze, No rales Cardiovascular: Regular rate, Regular Rhythm, Normal S1, Normal S2, No murmurs Abdomen: Soft, Non Tender, Non-Distended, No Hepato-splenomegaly Extremities: No edema, Capillary Refill Less than 3 Seconds Skin: Multiple areas of bruising given his Coumadin Musculoskeletal: No Tenderness to Palpation of Joints or Extremities Neurological: Motor Exam 5/5 strength throughout, Sensory exam intact to light touch and pain Psych/Mental Status: Normal Affect, Appropriate Assessment & Plan Assessment/Plan (1) Fall: PLAN: Plan 1. Mechanical fall due to adult failure to thrive and debility ? PT/OT ? He states that his walker is uneven and that his leg gave out ? Imaging is negative for any acute fractures, he does have a T11 wedge compression which is the last vertebra of his T9-T11 fusion this does not appear to be a acute he has a known L4 compression fracture ? We will continue with pain medication ? Leukocytosis has resolved 2. HTN/HLD/A-fib ? Blood pressures are stable we will resume his home blood pressure medications ? Resume Coumadin, INR is therapeutic ? Continue with Lipitor 3. History of prostate cancer/BPH ? Can resume his home Xtandi, family can bring it in ? Continue with terazosin DVT: Coumadin Charges/Coding Visit Charges Inpatient E&M: 85101 Subs Hosp L2
[2023-07-26] MEDS: Metoprolol Tartrate 50 MG Tablet PO ×2 (10:30→21:03)
[2023-07-26] MEDS: Furosemide 20 MG Tablet PO (10:30)
[2023-07-26] MEDS: Citalopram 10 MG Tablet PO (21:03)
[2023-07-26] MEDS: Doxazosin 4 MG Tablet 8 MG PO (21:04)
[2023-07-26] MEDS: Atorvastatin Calcium 80 MG Tablet PO (21:04)
[2023-07-27] VITALS (9 sets, daily range): BP systolic 114–159; BP diastolic 64–73; PULSE 70–103; RESP 14–18; TEMP 36.4–36.9; O2SAT 87–98
[2023-07-27] MEDS: Ondansetron 4 MG/2 ML Vial IV (03:04)
[2023-07-27] MEDS: 0.9% Saline Lock 10 ML Syringe IV (03:04)
[2023-07-27] MEDS: Acetaminophen 500 MG Tablet 1000 MG PO ×3 (05:19→22:15)
[2023-07-27] MEDS: oxyCODONE 5 MG Tablet PO (05:47)
--- NOTE | 2023-07-27 11:30 | CASEMGMT ---
MARIAJOSE PITT Face to Face with patient for initial transition planning/care coordination assessment. RN YOANDY introduced self and role at [facility]. Patient sitting in chair, alert and oriented. Patient willing to participate in assessment and is able to answer all questions appropriately. Care providers, pharmacy, and demographics verified. Patient wishes to discharge to SNF for additional therapy. Patient states he prefers TCU. Patient states he has no further needs or concerns at this time. SW updated regarding request for TCU. CM to follow for discharge planning needs that may arise. PCP: [facility] Specialists: Jenaro, oncologist; Jaelyn, dryer operator; Alex, pain; Bobby, hull drafter Preferred Pharmacy: [facility] Insurance: [facility] Prescription Benefit: yes Living Will/HPOA: none LNOK: brother Living Arrangements: Patient lives alone in a first floor apartment with 7 steps and railing to enter the home. Patient states he was independent at home, friend helps with setting up showers. Transportation: friend DME/HHC: Patient has shower chair, raised toilet, cane, walker, grab bars, wheelchair, and cpap at home. Patient has been to [facility] and [facility]. Patient has had [facility] in the past. Disposition Plan: SNF pending acceptance and precert. Maureen MENENDEZ, RN, CM
--- NOTE | 2023-07-27 11:32 | CASEMGMT ---
Discharge Planning Met with patient to complete HOLLIS form. HOLLIS form explained to patient who voiced understanding and signed form. Original form placed in pt?s chart and copy provided to patient. Milagro Izaguirre, Discharge Planning Asst.
--- NOTE | 2023-07-27 11:35 | CASEMGMT ---
SW notified patient that TCU does not have any bed availability. Patient was open to reviewing a list of other options. SW asked Milagro d/c manager of financial planning to please provide patient with a list of SNFn's. Mary Jane BANERJEE
[2023-07-27] MEDS: Furosemide 20 MG Tablet PO (11:58)
--- NOTE | 2023-07-27 12:07 | CASEMGMT ---
Discharge Planning A list of SNF providers including quality and resource use data and consistent with the patient?s preferred geographic region, medical needs, and insurance network was created in [facility] Guide. This list was provided to the SW. Mialgro Izaguirre Discharge Planning Asst.
--- NOTE | 2023-07-27 12:48 | WOUNDNOTE ---
Was asked to assess bilateral lower legs by Dr Harrell. patient has chronic lypmphedema. patient has some dry flaky skin noted to bilateral lower legs. small amount of drainage noted from a few small open areas. no redness noted. washed legs and feet with soap and water. pat dry. applied aloe vesta to the dry skin and wrapped with kerlix. applied ESA wraps from the base of the toes to just below the knees. pt tolerated well. encouraged patient to keep legs elevated and wear compression stockings at home. pt states understanding. will monitor.
--- NOTE | 2023-07-27 15:43 | CASEMGMT ---
Discharge Planning SNF [facility] Milagro Izaguirre, Discharge Planning Asst.
--- NOTE | 2023-07-27 16:02 | CHAPLAIN ---
Type of Pastoral Visit _x__ Initial Visit ___ Follow-up Visit ___ On-call Visit ___ General Patient Visit ___ Spiritual Assessment ___ Family Conference ___ Bereavement ___ Rapid Response ___ Code Blue ___ Other (describe below) Pastoral Care Referral From _x__ Patient ___ Family ___ Nurse ___ Physician ___ Sales Service Route Manager ___ Assembler Motor Vehicle ___ Other (describe below) Sacrament/Intervention _x__ Active listening ___ Anointing ___ Yazidi ___ Bereavement ___ Communion ___ Tiff exploration ___ _x__ Life review _x__ Prayer ___ Reconciliation ___ Sacrament of Sick _x__ Supportive presence ___ Wedding ___ Other (describe below) Pastoral Comments patient gives his update on health since his previous admissions; pt admits to struggle through the new season of health issues; pt acknowledges that he needs people company and welcomes visits from this sack repairer; pt has a couple of friends that help with daily chores at home; pt states that tiff is also helpful to him; pt welcomes prayer and future visits if possible
--- NOTE | 2023-07-27 16:36 | CASEMGMT ---
Discharge Planning Patient was accepted by [facility] and declined by [facility]. Updated patient. Asked Revillo to submit for precert. Milagro Izaguirre, Discharge Planning Asst.
--- NOTE | 2023-07-27 19:00 | PN.HOSP_ITS ---
Reason for Visit Reason for Visit: Diagnoses Unspecified fall, initial encounter (07/25/23) Subjective Subjective She was seen and examined today, had a discussion with him concerning discharge planning, he feels that he may be needing to go to an extended care facility for short-term rehab services. Objective Data Objective Data Vital Signs: Vital Signs Temp Pulse Resp BP Pulse Ox O2 Del Method O2 Flow Rate 98.4 F 76 14 116/69 98 Room Air 2 07/27/23 16:00 07/27/23 16:00 07/27/23 16:00 07/27/23 16:00 07/27/23 16:00 07/27/23 17:40 07/26/23 21:15 Oxygen Flow Rate (L/min) 2 Oxygen Delivery Method Room Air Weight: 120.5 kg Body Mass Index (BMI) 36.0 Intake & Output: Intake and Output for Last 24 Hours 07/25/23 07/26/23 07/27/23 23:59 23:59 23:59 Intake Total 260 / 260 940 / 1180 680 / 680 Output Total 150 / 350 1300 / 1300 200 / 200 Balance 110 / -90 -360 / -120 480 / 480 Lab / Micro Data 07/26/23 05:45 07/26/23 05:45 Physical Exam Const alert, oriented x3, no apparent distress and average body habitus Constitutional Narrative: Patient appears older than stated age General Appearance: cooperative, well kempt and well developed Orientation / Consciousness: awake, oriented to person, oriented to place and oriented to time HEENT normocephalic, head/scalp atraumatic and moist oral mucous membranes Eyes PERRL, EOMs intact bilaterally and conjunctivae normal Neck supple, no JVD, thyroid normal and no carotid bruits General: trachea midline Resp normal respiratory effort, no retractions, no use of accessory muscles and clear to auscultation bilaterally Auscultation: Negative for rales, rhonchi or wheezes Cardio S1 normal heart sound, S2 normal heart sound, no murmurs, no rub and no gallops Cardio Narrative: Heart rate and rhythm is irregular GI normal to inspection, nondistended, normoactive bowel sounds, soft to palpation, non-tender and non-distended Extremity Extremity Narrative: Patient has evidence of chronic lymphedematous changes to his skin over his lower legs bilaterally, patient has generalized edema which is nonpitting of both lower legs Skin Skin Narrative: Patient has chronic lymphedematous skin changes over both lower leg Neuro oriented x3, CN's II-XII intact bilaterally, moves all extremities, no focal motor deficits and no sensory deficits noted Sensorium / Orientation: awake, alert, oriented to person, oriented to place and oriented to time Speech: speech normal Psych affect normal Assessment & Plan Assessment/Plan (1) Debility: PLAN: Plan 1. Acute debility secondary to degenerative disc disease lumbar spine with previous compression fractures-PT and OT will continue to work with the patient, he will need temporary placement to correction facility for short-term rehab services #2 essential hypertension-patient will remain on his home medications for blood pressure #3 chronic atrial fibrillation-patient is on Coumadin and metoprolol #4 hyperlipidemia-patient is on Lipitor #5 prostate cancer-patient is on Xtandi Total clinical time spent addressing the patient's medical issues, reviewing all of his data, and collaborating with patient's care team: 25 minutes Charges/Coding Visit Charges Inpatient E&M: [id number] [facility] Hosp L1
[2023-07-27] MEDS: Citalopram 10 MG Tablet PO (22:14)
[2023-07-27] MEDS: Doxazosin 4 MG Tablet 8 MG PO (22:14)
[2023-07-27] MEDS: Metoprolol Tartrate 50 MG Tablet PO (22:15)
[2023-07-28] VITALS (11 sets, daily range): BP systolic 107–150; BP diastolic 62–81; PULSE 56–75; RESP 14–18; TEMP 35.9–37.2; O2SAT 93–98
[2023-07-28] MEDS: Acetaminophen 500 MG Tablet 1000 MG PO ×3 (05:09→21:24)
[2023-07-28] MEDS: Metoprolol Tartrate 50 MG Tablet PO ×2 (09:48→21:25)
[2023-07-28] MEDS: Furosemide 20 MG Tablet PO (09:48)
--- NOTE | 2023-07-28 09:50 | CASEMGMT ---
RAHEEM spoke with patient and let him know that [facility] is able to take him. Patient said his caregiver tends to get a bit anxious when it comes to nursing homes. Apparently her father in one and she does not want patient to go to one. Patient said he is not sure what to do. SW told patient that we can see how he does with therapy today and see what the therapists think. SW will then come back and talk with him. Patient agreed with this plan. RAHEEM then told patient that we will keep things going with [facility] for now. RAHEEM then spoke with ESE Flores who is aware of RAHEEM's request. Mary Jane Holcomb INNER DIAMETER GRINDER TOOL LAVONNE
--- NOTE | 2023-07-28 11:04 | WOUNDNOTE ---
Removed ESA wraps and dressings to reassess the legs. there was a small amount drainage noted on the LLE dressing. drainage appears serous. legs are much improved today. minimal dry skin noted. washed legs and feet with soap and water. pat dry. applied aloe vesta and wrapped with kerlix. reapplied the ESA wraps from the base of the toes to just below the knees. pt tolerated well.
--- NOTE | 2023-07-28 11:40 | CASEMGMT ---
OT saw patient and she feels patient should go to a longterm for rehab. SW spoke with patient and let him know what OT said. Patient is in agreement. SW offered to call patient's caregiver to see if there was anything SW could do and patient declined stating he doesn't want to put SW in the middle anymore than he already has. SW told patient to let SW know if he changes his mind and would like SW to talk with his caregiver. Plan: [facility] pending insurance authorization. Mary Jane Holcomb SCOREBOARD OPERATORAdonis BANERJEE
--- NOTE | 2023-07-28 17:27 | NURSING ---
Report called to [facility] MARIAJOSE Ramírez.
--- NOTE | 2023-07-28 18:36 | PN.HOSP_ITS ---
Reason for Visit Reason for Visit: Diagnoses Other malaise (07/25/23) Unspecified fall, initial encounter (07/25/23) Subjective Subjective Patient was seen and examined today, he tells me his caregiver was not in favor of him going to a detention but he has decided that the best thing for him at this time and he does not intend to stay long-term in a detention. I agreed and told him that I thought it was a good decision to go to a retirement facility for short period of time for inpatient rehab services. Objective Data Objective Data Vital Signs: Vital Signs Temp Pulse Resp BP Pulse Ox O2 Del Method O2 Flow Rate 98.2 F 75 16 138/72 H 97 Room Air 2 07/28/23 18:25 07/28/23 18:25 07/28/23 18:25 07/28/23 18:25 07/28/23 18:25 07/28/23 18:25 07/26/23 21:15 Oxygen Flow Rate (L/min) 2 Oxygen Delivery Method Room Air Weight: 120.5 kg Body Mass Index (BMI) 36.0 Intake & Output: Intake and Output for Last 24 Hours 07/26/23 07/27/23 07/28/23 23:59 23:59 23:59 Intake Total 940 / 1180 680 / 680 1000 / 1000 Output Total 1300 / 1300 200 / 200 2725 / 2725 Balance -360 / -120 480 / 480 -1725 / -1725 Lab / Micro Data 07/26/23 05:45 07/26/23 05:45 Physical Exam Narrative alert, oriented x3, no apparent distress and average body habitus Constitutional Narrative: Patient appears older than stated age General Appearance: cooperative, well kempt and well developed Orientation / Consciousness: awake, oriented to person, oriented to place and oriented to time HEENT normocephalic, head/scalp atraumatic and moist oral mucous membranes Eyes PERRL, EOMs intact bilaterally and conjunctivae normal Neck supple, no JVD, thyroid normal and no carotid bruits General: trachea midline Resp normal respiratory effort, no retractions, no use of accessory muscles and clear to auscultation bilaterally Auscultation: Negative for rales, rhonchi or wheezes Cardio S1 normal heart sound, S2 normal heart sound, no murmurs, no rub and no gallops Cardio Narrative: Heart rate and rhythm is irregular GI normal to inspection, nondistended, normoactive bowel sounds, soft to palpation, non-tender and non-distended Extremity Extremity Narrative: Patient has evidence of chronic lymphedematous changes to his skin over his lower legs bilaterally, patient has generalized edema which is nonpitting of both lower legs Skin Skin Narrative: Patient has chronic lymphedematous skin changes over both lower leg Neuro oriented x3, CN's II-XII intact bilaterally, moves all extremities, no focal motor deficits and no sensory deficits noted Sensorium / Orientation: awake, alert, oriented to person, oriented to place and oriented to time Speech: speech normal Psych affect normal Assessment & Plan Assessment/Plan (1) Low back pain: (2) Debility: PLAN: Plan 1. Acute debility secondary to degenerative disc disease lumbar spine with previous compression fractures-PT and OT will continue to work with the patient, he will need temporary placement to retirement facility for short-term r ehab services, we are awaiting approval for this to happen. #2 essential hypertension-patient will remain on his home medications for blood pressure #3 chronic atrial fibrillation-patient is on Coumadin and metoprolol #4 hyperlipidemia-patient is on Lipitor #5 prostate cancer-patient is on Xtandi Total clinical time spent addressing the patient's medical issues, reviewing all of his data, and collaborating with patient's care team: 25 minutes Charges/Coding Visit Charges Inpatient E&M: 71822 [facility] H[facility] L1
[2023-07-28] MEDS: Atorvastatin Calcium 80 MG Tablet PO (21:24)
[2023-07-28] MEDS: Doxazosin 4 MG Tablet 8 MG PO (21:25)
[2023-07-28] MEDS: Citalopram 10 MG Tablet PO (21:25)
[2023-07-29] VITALS (7 sets, daily range): BP systolic 127–150; BP diastolic 66–90; PULSE 52–88; RESP 17–18; TEMP 36.4–36.8; O2SAT 93–97
[2023-07-29] MEDS: Acetaminophen 500 MG Tablet 1000 MG PO ×3 (05:52→22:08)
[2023-07-29] MEDS: Ondansetron 4 MG/2 ML Vial IV (05:52)
--- NOTE | 2023-07-29 08:28 | WOUNDNOTE ---
In to reassess bilateral lower legs. removed the ESA wraps and dressings. minimal drainage noted from the LLE. the thick, dry skin is nearly resolved now. washed legs and feet with soap and water. pat dry. applied aloe vesta and wrapped legs with kerlix. reapplied the ESA wraps from the base of the toes to just below the knees. pt tolerated well.
[2023-07-29] MEDS: Metoprolol Tartrate 50 MG Tablet PO ×2 (09:35→22:08)
[2023-07-29] MEDS: Furosemide 20 MG Tablet PO (09:35)
--- NOTE | 2023-07-29 13:57 | NURSING ---
asked pt if was going to bring in his NF med Xtandi - per pt will not be able to bring in it has to be reordered d/t being out
--- NOTE | 2023-07-29 19:07 | PN.HOSP_ITS ---
Reason for Visit Reason for Visit: Diagnoses Low back pain, unspecified (07/25/23) Other malaise (07/25/23) Unspecified fall, initial encounter (07/25/23) Subjective Subjective Patient was seen and examined today, we are waiting approval for the patient to go to an extended care facility for short-term rehab services. Objective Data Objective Data Vital Signs: Vital Signs Temp Pulse Resp BP Pulse Ox O2 Del Method O2 Flow Rate 97.5 F L 52 L 18 127/68 H 97 Room Air 2 07/29/23 15:17 07/29/23 15:17 07/29/23 15:17 07/29/23 15:17 07/29/23 15:17 07/29/23 15:17 07/26/23 21:15 Oxygen Flow Rate (L/min) 2 Oxygen Delivery Method Room Air Weight: 120.5 kg Body Mass Index (BMI) 36.0 Intake & Output: Intake and Output for Last 24 Hours 07/27/23 07/28/23 07/29/23 23:59 23:59 23:59 Intake Total 680 / 680 1000 / 1000 400 / 400 Output Total 200 / 200 2725 / 2725 1300 / 1300 Balance 480 / 480 -1725 / -1725 -900 / -900 Lab / Micro Data 07/26/23 05:45 07/26/23 05:45 Physical Exam Narrative alert, oriented x3, no apparent distress and average body habitus Constitutional Narrative: Patient appears older than stated age General Appearance: cooperative, well kempt and well developed Orientation / Consciousness: awake, oriented to person, oriented to place and oriented to time HEENT normocephalic, head/scalp atraumatic and moist oral mucous membranes Eyes PERRL, EOMs intact bilaterally and conjunctivae normal Neck supple, no JVD, thyroid normal and no carotid bruits General: trachea midline Resp normal respiratory effort, no retractions, no use of accessory muscles and clear to auscultation bilaterally Auscultation: Negative for rales, rhonchi or wheezes Cardio S1 normal heart sound, S2 normal heart sound, no murmurs, no rub and no gallops Cardio Narrative: Heart rate and rhythm is irregular GI normal to inspection, nondistended, normoactive bowel sounds, soft to palpation, non-tender and non-distended Extremity Extremity Narrative: Patient has evidence of chronic lymphedematous changes to his skin over his lower legs bilaterally, patient has generalized edema which is nonpitting of both lower legs Skin Skin Narrative: Patient has chronic lymphedematous skin changes over both lower leg Neuro oriented x3, CN's II-XII intact bilaterally, moves all extremities, no focal motor deficits and no sensory deficits noted Sensorium / Orientation: awake, alert, oriented to person, oriented to place and oriented to time Speech: speech normal Psych affect normal Assessment & Plan Assessment/Plan (1) Low back pain: (2) Debility: PLAN: Plan 1. Acute debility secondary to degenerative disc disease lumbar spine with previous compression fractures-PT and OT will continue to work with the patient, he will need temporary placement to nursing home facility for short-term r ehab services, we are awaiting approval for this to happen. #2 essential hypertension-patient will remain on his home medications for blood pressure #3 chronic atrial fibrillation-patient is on Coumadin and metoprolol #4 hyperlipidemia-patient is on Lipitor #5 prostate cancer-patient is on Xtandi Total clinical time spent addressing the patient's medical issues, reviewing all of his data, and collaborating with patient's care team: 25 minutes Charges/Coding Visit Charges Inpatient E&M: [id number] [facility] Hosp L1
[2023-07-29] MEDS: Citalopram 10 MG Tablet PO (22:08)
[2023-07-29] MEDS: Doxazosin 4 MG Tablet 8 MG PO (22:09)
[2023-07-29] MEDS: Atorvastatin Calcium 80 MG Tablet PO (22:10)
[2023-07-29] MEDS: ENZALUTAMIDE 40 MG TABLET 160 MG PO (22:11)
[2023-07-30 03:07] VITALS: BP 139/81; PULSE 63; RESP 20; TEMP 36.4; O2SAT 95
[2023-07-30] MEDS: Acetaminophen 500 MG Tablet 1000 MG PO ×2 (05:03→15:11)
--- NOTE | 2023-07-30 08:50 | CASEMGMT ---
Discharge Planning Auth has been received by Rose. SW updated. Milagro Izaguirre, Discharge Planning Asst.
--- NOTE | 2023-07-30 09:30 | PCM.TXEXTCAR ---
Diet Diet Order/Speech Therapy: 07/25/23 13:26 Diet: Cardiac - Heart Healthy Food consistency:: Regular Liquid Consistency:: Regular/Thin Routine Orders/Code Status Suppository Type: Dulcolax 10mg Suppository Frequency: Daily PRN Code Status: Full Code Wound(s) LEFT LEG: Wound Type: Abrasion Therapies Weight Bearing: Weight bearing as tolerated Extremity Affected:: Bilateral Lower Physical Therapy: Eval and Treat Occupational Therapy: Eval and Treat Speech Therapy: Eval and Treat Problem/Diagnosis (1) Low back pain: Status: Acute Code(s): M54.50 - Low back pain, unspecified (2) Debility: Status: Acute Code(s): R53.81 - Other malaise Plan 77-year-old gentleman who was admitted after mechanical fall. He fell on the left side because his left leg felt weak and problem in his walker as his walker is uneven. Denies loss of consciousness. The patient had lot of pain and debility and could not be discharged from ED. Denies loss of consciousness any focal weakness or paresthesia. 1. Acute debility secondary to degenerative disc disease lumbar spine with previous compression fractures-PT and OT will continue to work with the patient, he will need temporary placement to care home facility for short-term rehab services, we are awaiting approval for this to happen. #2 essential hypertension-patient will remain on his home medications for blood pressure #3 chronic atrial fibrillation-patient is on Coumadin and metoprolol #4 hyperlipidemia-patient is on Lipitor #5 prostate cancer-patient is on Xtandi Total clinical time spent addressing the patient's medical issues, reviewing all of his data, and collaborating with patient's care team: 25 minutes Allergies/Procedures Done in Hospital Allergies amiodarone Adverse Reaction (Intermediate, Verified 07/25/23 07:54) It did not work, also bad dreams and neuropathy Type of Care/Length of Stay Estimated LOS: Convalescent Care Less Than 30 days Type of Care Needed: Skilled Rehab Potential: Good Prognosis: Good Additional Orders/Day of Discharge Day of Discharge: 07/30/23 Discharge Plan Admission Admit Date/Time: 07/25/23 11:20 Primary Reason for Your Visit: General lysed weakness and debility Attending Provider: Jame Colindres Primary Care Provider: James Pisano [employer] Providers: Koby Pascal; Feliciano Maldonado Instructions Patient Instructions: ED Head Injury (Adult), ED Hip Contusion Discharge Orders/Prescriptions Prescriptions: Continued potassium chloride 20 mEq tablet extended release 20 meq PO DAILY cholecalciferol (vitamin D3) 1,250 mcg (50,000 unit) capsule 1,000 unit PO DAILY metoprolol tartrate 50 mg tablet 50 mg PO BID cetirizine 10 MG capsule 10 mg PO DAILY furosemide 40 mg tablet 20 mg PO DAILY Patient Comments: TAKE 1 TABLET BY MOUTH EVERY DAY citalopram 10 mg tablet 10 mg PO QHS Patient Comments: TAKE 1 TABLET BY MOUTH EVERY DAY losartan [Cozaar] 100 mg tablet 100 mg PO DAILY Hold Instructions: Pt has been DC'd Patient Comments: TAKE 1 TABLET BY MOUTH EVERY DAY terazosin 10 mg capsule 10 mg PO QPM Patient Comments: TAKE 1 CAPSULE BY MOUTH EVERYDAY AT BEDTIME acetaminophen 500 mg tablet 1,000 mg PO Q8 lidocaine 5 % Adhesive Patch,Medicated 1 patch topical DAILY 30 Days Qty: 30 0RF Protocol: *Topical Application Instructions APPLICATION INSTRUCTIONS: chronic back pain fluticasone propionate 50 mcg/actuation [place],Suspension 2 spray NASAL DAILY Qty: 0 0RF Xtandi 40 mg Tablet 160 mg PO QPM Qty: 0 0RF promethazine 25 mg Tablet 25 mg PO Q4H PRN PRN (Reason: NAUSEA/VOMITING) 30 Days Qty: 120 0RF atorvastatin 40 mg Tablet 80 mg PO QHS warfarin [Jantoven] 6 mg Tablet 9 mg PO DINNER Protocol: Dose Management Condition: Thursday Dose/Route: 9 mg Instruction: 1.5 x 6 mg tablets Condition: Thursday Dose/Route: 7.5 mg Instruction: 1.5 x 5 mg tablets Condition: Thursday Dose/Route: 7.5 mg Instruction: 1.5 x 5 mg tablets Condition: Thursday Dose/Route: 9 mg Instruction: 1.5 x 6 mg tablets Condition: Dose/Route: 7.5 mg Instruction: 1.5 x 5 mg tablets Condition: Thursday Dose/Route: 7.5 mg Instruction: 1.5 x 5 mg tablets Condition: Thursday Dose/Route: 9 mg Instruction: 1.5 x 6 mg tablets Protocol Text: Adjustment Start Date: Thursday07/15/23 INR Value: 2.5 INR Date: 07/15/23 Recheck Date: 08/05/23 Patient Comments: Pt takes thursday, thursday, thursday sennosides-docusate sodium [Stool Softener-Stimulant Laxat] 8.6-50 mg Tablet 2 tab PO BID 30 Days Qty: 0 0RF warfarin 5 mg tablet 7.5 mg PO .COMPLEX Qty: 30 6RF Protocol: Dose Management Condition: Thursday Dose/Route: 9 mg Instruction: 1.5 x 6 mg tablets Condition: Thursday Dose/Route: 7.5 mg Instruction: 1.5 x 5 mg tablets Condition: Thursday Dose/Route: 7.5 mg Instruction: 1.5 x 5 mg tablets Condition: Thursday Dose/Route: 9 mg Instruction: 1.5 x 6 mg tablets Condition: Dose/Route: 7.5 mg Instruction: 1.5 x 5 mg tablets Condition: Thursday Dose/Route: 7.5 mg Instruction: 1.5 x 5 mg tablets Condition: Thursday Dose/Route: 9 mg Instruction: 1.5 x 6 mg tablets Protocol Text: Adjustment Start Date: Thursday07/15/23 INR Value: 2.5 INR Date: 07/15/23 Recheck Date: 08/05/23 Patient Comments: pt takes 7.5 thursday, thursday, , thursday Rx Instructions: 7.5 mg orally every Thursday, 6 mg all other days of the week; or as directed; Changed oxycodone 5 mg Tablet 2.5 - 5 mg PO Q4H PRN PRN (Reason: Pain Score 6-10) 3 Days Qty: 7 0RF Referrals / Follow Up: James Pisano Chi, MD [Primary Care Provider] - 3-5 Days Disposition Disposition (needs filled in before D/C Order can be placed): Retirement Facility
[2023-07-30 09:51] VITALS: BP 117/59; PULSE 80; RESP 18; TEMP 36.7; O2SAT 95
[2023-07-30 09:55] VITALS: PULSE 80
[2023-07-30] MEDS: Furosemide 20 MG Tablet PO (09:55)
[2023-07-30] MEDS: Metoprolol Tartrate 50 MG Tablet PO (09:55)
--- NOTE | 2023-07-30 10:03 | PN.HOSP_ITS ---
Reason for Visit Reason for Visit: Diagnoses Low back pain, unspecified (07/25/23) Other malaise (07/25/23) Unspecified fall, initial encounter (07/25/23) Objective Data Objective Data Vital Signs: Vital Signs Temp Pulse Resp BP Pulse Ox O2 Del Method O2 Flow Rate 98.1 F 80 18 117/59 L 95 Room Air 2 07/30/23 09:51 07/30/23 09:55 07/30/23 09:51 07/30/23 09:51 07/30/23 09:51 07/30/23 09:51 07/26/23 21:15 Oxygen Flow Rate (L/min) 2 Oxygen Delivery Method Room Air Weight: 265 lb 10.512 oz Body Mass Index (BMI) 36.0 Intake & Output: Intake and Output for Last 24 Hours 07/28/23 07/29/23 07/30/23 23:59 23:59 23:59 Intake Total 1000 / 1000 400 / 400 Output Total 2725 / 2725 1300 / 1300 Balance -1725 / -1725 -900 / -900 Lab / Micro Data 07/26/23 05:45 07/26/23 05:45 Assessment & Plan Assessment/Plan (1) Low back pain: (2) Debility: PLAN: Plan 77-year-old gentleman who was admitted after mechanical fall. He fell on the left side because his left leg felt weak and problem in his walker as his walker is uneven. Denies loss of consciousness. The patient had lot of pain and debility and could not be discharged from ED. Denies loss of consciousness any focal weakness or paresthesia. 1. Acute debility secondary to degenerative disc disease lumbar spine with previous compression fractures-PT and OT will continue to work with the patient, he will need temporary placement to senior care facility for short-term rehab services, we are awaiting approval for this to happen. #2 essential hypertension-patient will remain on his home medications for blood pressure #3 chronic atrial fibrillation-patient is on Coumadin and metoprolol #4 hyperlipidemia-patient is on Lipitor #5 prostate cancer-patient is on Xtandi Total clinical time spent addressing the patient's medical issues, reviewing all of his data, and collaborating with patient's care team: 25 minutes
--- NOTE | 2023-07-30 12:15 | CASEMGMT ---
Social Work Precert has been obtained for pt to admit to [facility]. Physician updated. SW met with pt and notified. Pt agreeable to d/c plan to [facility]. JOHN Michaels
--- NOTE | 2023-07-30 14:36 | CASEMGMT ---
Social Work Phone call received from pt caregiver/friend Guillermo Cruz. Guillermo expressing frustration that pt should not be going to a SNF and should be going home with followup at [facility] for outpt therapy. SW did not provide any pt information to Guillermo. SW met with pt and explained the conversation between Guillermo and this SW. Pt expresses understanding and discussed his relationship with Guillermo. Pt is understanding of Guillermo's concerns and wishes and firmly states that discharge disposition is his choice not Jeno's. Pt continues to request to got [facility]. Pt requesting that SW call Guillermo and inform her of his decision. Phone call to Guillermo and RAHEEM updated her on conversation with pt. Guillermo expressing understanding. Plan: [facility] JOHN Michaels
[2023-07-30 15:14] VITALS: BP 143/94; PULSE 74; RESP 18; TEMP 36.6; O2SAT 95
--- NOTE | 2023-07-30 15:24 | DS.PCM_ITS ---
Providers Date of Admission: 07/25/23 Date of Discharge: 07/30/23 Primary Care Physician: Dr. James Pisano MD Reason For Visit: FALL, DEBILITY Diagnosis Discharge Diagnosis (1) Low back pain: Status: Acute Code(s): M54.50 - Low back pain, unspecified (2) Debility: Status: Acute Code(s): R53.81 - Other malaise Plan 77-year-old gentleman who was admitted after mechanical fall. He fell on the left side because his left leg felt weak and problem in his walker as his walker is uneven. Denies loss of consciousness. The patient had lot of pain and debility and could not be discharged from ED. Denies loss of consciousness any focal weakness or paresthesia. 1. Acute debility secondary to degenerative disc disease lumbar spine with previous compression fractures-patient was admitted to [facility] floor. PT and OT were consulted. Patient was able to move, walk from bed to bathroom with assistance. Prescription given for oxycodone 2.5 mg to 5 mg every 6 hourly. For severe pain. Patient also has constipation therefore oxycodone dose decreased. On senna-S. Advised to uptitrate bowel regimen including Dulcolax suppository #2 essential hypertension-patient on his home medications for blood pressure #3 chronic atrial fibrillation-patient is on Coumadin and metoprolol #4 hyperlipidemia-patient is on Lipitor #5 prostate cancer-patient is on Xtandi Total clinical time spent addressing the patient's medical issues, reviewing all of his data, and collaborating with patient's care team: 25 minutes Medications at Discharge Home Medications potassium chloride 20 mEq tablet,extended release 20 meq PO DAILY supplement 12/03/18 cetirizine 10 mg capsule 10 mg PO DAILY Allergy 12/27/18 metoprolol tartrate 50 mg tablet 50 mg PO BID bp 03/15/19 cholecalciferol (vitamin D3) 1,250 mcg (50,000 unit) capsule 1,000 unit PO DAILY supplement 10/29/20 citalopram 10 mg tablet 10 mg PO QHS depression 12/01/22 furosemide 40 mg tablet 20 mg PO DAILY fluid pill 12/01/22 losartan 100 mg tablet (Cozaar) 100 mg PO DAILY BP 12/01/22 terazosin 10 mg capsule 10 mg PO QPM BPH 12/01/22 acetaminophen 500 mg tablet 1,000 mg PO Q8 pain 12/03/22 enzalutamide 40 mg tablet (Xtandi) 160 mg (4 x 40 mg) PO QPM #0 tabs 12/16/22 fluticasone propionate 50 mcg/actuation nasal spray,suspension 2 spray NASAL DAILY #0 grams 12/16/22 lidocaine 5 % topical patch 1 patch topical DAILY 30 days #30 ea 12/16/22 warfarin 5 mg tablet 7.5 mg PO .COMPLEX #30 tabs 02/10/23 atorvastatin 40 mg tablet 80 mg PO QHS 07/25/23 warfarin 6 mg tablet (Jantoven) 9 mg PO DINNER 07/25/23 oxycodone 5 mg tablet 2.5 - 5 mg (0.5 - 1 x 5 mg) PO Q4H PRN PRN Pain Score 6-10 3 days #7 tabs 07/30/23 sennosides 8.6 mg-docusate sodium 50 mg tablet (Stool Softener-Stimulant La xative) 2 tab PO BID constipation 30 days #0 tabs 07/30/23 Physical Exam Narrative Seen and examined. Patient states he has constipation and sitting on the toilet. Patient knows the adverse effect of opioids and oxycodone including CONSTIPATION dizziness vertigo confusion and altered mental status. Otherwise no acute complaint. Physical exam: General: Alert, Oriented x3, Cooperative HEENT: Atraumatic, PERRLA, EOMI, Normocephalic Oral: Oral mucosa dry. No Gingival or Mucosal Lesions/ Ulcerations Neck: Supple, No JVD, Negative Carotid Bruits Lungs: Air entry diminished in bilateral lung bases. No crepitation/rhonchi Cardiovascular: Regular rate, Regular Rhythm, Normal S1, Normal S2, No murmurs Abdomen: Bowel Sounds Present, Soft, Non Tender, Non-Distended : No renal angle tenderness. No suprapubic tenderness. Extremities: No edema, Capillary Refill Less than 3 Seconds Skin: No rashes, No breakdown Musculoskeletal: No Tenderness to Palpation of Joints or Extremities. ROM restricted at hips and knee joints. Requires assistance to walk spine: Spine: Tenderness over thoracic and lumbar spine. No acute urinary retention or or perfusion changes noted intact symptoms. Neurological: Cranial nerves II-XII grossly intact, DTR 2+/4. No acute focal neurological deficit. Psych/Mental Status: Normal Affect, Appropriate. Weight / BMI Weight Weight: 265 lb 10.512 oz Body Mass Index (BMI) 36.0 ABG / Lab / Microbiology Data 07/26/23 05:45 07/26/23 05:45 Meaningful Use Info Meaningful Use Diagnoses (Choose all that apply): None applicable Discharge Plan Admission Admit Date/Time: 07/25/23 11:20 Primary Reason for Your Visit: General lysed weakness and debility Attending Provider: Jame Colindres Primary Care Provider: James Pisano Chi Consulting Providers: Koby Pascal; Feliciano Maldonado Instructions Patient Instructions: ED Head Injury (Adult), ED Hip Contusion Additional Instructions / Restrictions: PT/INR on 07/31/2023. Titrate the dose of warfarin accordingly. Discharge Orders/Prescriptions Prescriptions: Continued potassium chloride 20 mEq tablet extended release 20 meq PO DAILY cholecalciferol (vitamin D3) 1,250 mcg (50,000 unit) capsule 1,000 unit PO DAILY metoprolol tartrate 50 mg tablet 50 mg PO BID cetirizine 10 MG capsule 10 mg PO DAILY furosemide 40 mg tablet 20 mg PO DAILY Patient Comments: TAKE 1 TABLET BY MOUTH EVERY DAY citalopram 10 mg tablet 10 mg PO QHS Patient Comments: TAKE 1 TABLET BY MOUTH EVERY DAY losartan [Cozaar] 100 mg tablet 100 mg PO DAILY Hold Instructions: Pt has been DC'd Patient Comments: TAKE 1 TABLET BY MOUTH EVERY DAY terazosin 10 mg capsule 10 mg PO QPM Patient Comments: TAKE 1 CAPSULE BY MOUTH EVERYDAY AT BEDTIME acetaminophen 500 mg tablet 1,000 mg PO Q8 lidocaine 5 % Adhesive Patch,Medicated 1 patch topical DAILY 30 Days Qty: 30 0RF Protocol: *Topical Application Instructions APPLICATION INSTRUCTIONS: chronic back pain fluticasone propionate 50 mcg/actuation [place],Suspension 2 spray NASAL DAILY Qty: 0 0RF Xtandi 40 mg Tablet 160 mg PO QPM Qty: 0 0RF atorvastatin 40 mg Tablet 80 mg PO QHS warfarin [Jantoven] 6 mg Tablet 9 mg PO DINNER Protocol: Dose Management Condition: Thursday Dose/Route: 9 mg Instruction: 1.5 x 6 mg tablets Condition: Thursday Dose/Route: 7.5 mg Instruction: 1.5 x 5 mg tablets Condition: Thursday Dose/Route: 7.5 mg Instruction: 1.5 x 5 mg tablets Condition: Thursday Dose/Route: 9 mg Instruction: 1.5 x 6 mg tablets Condition: Dose/Route: 7.5 mg Instruction: 1.5 x 5 mg tablets Condition: Thursday Dose/Route: 7.5 mg Instruction: 1.5 x 5 mg tablets Condition: Thursday Dose/Route: 9 mg Instruction: 1.5 x 6 mg tablets Protocol Text: Adjustment Start Date: Thursday07/15/23 INR Value: 2.5 INR Date: 07/15/23 Recheck Date: 08/05/23 Patient Comments: Pt takes thursday, thursday, thursday sennosides-docusate sodium [Stool Softener-Stimulant Laxat] 8.6-50 mg Tablet 2 tab PO BID 30 Days Qty: 0 0RF warfarin 5 mg tablet 7.5 mg PO .COMPLEX Qty: 30 6RF Protocol: Dose Management Condition: Thursday Dose/Route: 9 mg Instruction: 1.5 x 6 mg tablets Condition: Thursday Dose/Route: 7.5 mg Instruction: 1.5 x 5 mg tablets Condition: Thursday Dose/Route: 7.5 mg Instruction: 1.5 x 5 mg tablets Condition: Thursday Dose/Route: 9 mg Instruction: 1.5 x 6 mg tablets Condition: Dose/Route: 7.5 mg Instruction: 1.5 x 5 mg tablets Condition: Thursday Dose/Route: 7.5 mg Instruction: 1.5 x 5 mg tablets Condition: Thursday Dose/Route: 9 mg Instruction: 1.5 x 6 mg tablets Protocol Text: Adjustment Start Date: Thursday07/15/23 INR Value: 2.5 INR Date: 07/15/23 Recheck Date: 08/05/23 Patient Comments: pt takes 7.5 thursday, thursday, , thursday Rx Instructions: 7.5 mg orally every Thursday, 6 mg all other days of the week; or as directed; Changed oxycodone 5 mg Tablet 2.5 - 5 mg PO Q4H PRN PRN (Reason: Pain Score 6-10) 3 Days Qty: 7 0RF Discontinued promethazine 25 mg Tablet 25 mg PO Q4H PRN PRN (Reason: NAUSEA/VOMITING) 30 Days Qty: 120 0RF Referrals / Follow Up: Clark Johnson MD [Med Staff - Active Staff] - Within 2 Weeks (For chronic lumbar compression fracture) James Pisano Chi, MD [Primary Care Provider] - Within 1 Month Disposition Disposition (needs filled in before D/C Order can be placed): Shelter Facility Charges/Coding Visit Charges Inpatient E&M: 47380 Disch Hosp >30min
--- NOTE | 2023-07-30 15:58 | CASEMGMT ---
Social Work Pt to discharge to [facility] today. PASRR completed in [facility]. Disposition: [facility], Skilled level of care JOHN Michaels
--- NOTE | 2023-07-30 16:21 | CASEMGMT ---
Discharge Planning Discharge orders, signed med list, and transport time sent to [facility] via [facility]. [facility] will transport patient by wheelchair at 5p. Nursing and SW updated. Patient stated he would call family/friends. Milagro Izaguirre, Discharge Planning Asst.
== END 2023-07-30 17:52 | disposition skilled nursing facility (03) ==
LOC: ED 11:28 → PCU 12:00 → MS3 07-28 17:54
PROVIDERS: Admitting Provider Family Medicine; Emergency Provider Emergency Medicine; PCP Family Medicine Geriatric Medicine; Visit Provider Internal Medicine
DX: M51.36 Other intervertebral disc degeneration, lumbar region (principal); I48.11 Longstanding persistent atrial fibrillation; D68.9 Coagulation defect, unspecified; C61 Malignant neoplasm of prostate; S32.049D Unspecified fracture of fourth lumbar vertebra, subsequent encounter for fracture with routine healing; R62.7 Adult failure to thrive; R53.81 Other malaise; I25.10 Atherosclerotic heart disease of native coronary artery without angina pectoris; E78.5 Hyperlipidemia, unspecified; Z79.01 Long term (current) use of anticoagulants; I10 Essential (primary) hypertension; Z87.891 Personal history of nicotine dependence; Z79.899 Other long term (current) drug therapy; Z91.81 History of falling; N40.0 Benign prostatic hyperplasia without lower urinary tract symptoms; Z68.36 Body mass index [BMI] 36.0-36.9, adult
CPT/HCPCS: 36415; 70450; 72100; 73502; 73564; 80048; 85025; 85610; 85730; 96374; 96375; 96376; 97110; 97116; 97162; 97165; 97530; 99221; 99285; A4216; G0378; J2405

== ENCOUNTER → 2023-08-17 | Outpatient (CLI) | payer MEDICARE, SELFPAY ==
[2023-08-17 10:42] LABS: International Normalized Ratio 2.3; Prothrombin Time (Protime)PT. 25.4 SECONDS (11.7-14.9)
[2023-09-02 12:37] LABS: International Normalized Ratio 2.1; Prothrombin Time (Protime)PT. 23.9 SECONDS (11.7-14.9)
== END | disposition home or self-care (01) ==
LOC: LAB 09:36
PROVIDERS: PCP Family Medicine Geriatric Medicine; Referring Provider Internal Medicine Cardiovascular Disease; Visit Provider Internal Medicine Cardiovascular Disease
DX: I48.11 Longstanding persistent atrial fibrillation (principal); Z79.01 Long term (current) use of anticoagulants
CPT/HCPCS: 36415; 85610

== ENCOUNTER → 2023-09-02 | Outpatient (CLI) | payer MEDICARE, SELFPAY | END | disposition home or self-care (01) | LOC: POLAB3 11:40 | PROVIDERS: PCP Family Medicine Geriatric Medicine; Visit Provider Internal Medicine Cardiovascular Disease | DX: Z00.00 Encounter for general adult medical examination without abnormal findings (principal) ==

== ENCOUNTER → 2023-09-23 | Outpatient (CLI) | payer MEDICARE, SELFPAY ==
[2023-09-23 11:55] LABS: Prothrombin Time (Protime)PT. 41.3 SECONDS (11.7-14.9)
[2023-09-23 13:28] LABS: International Normalized Ratio 4.2
== END | disposition home or self-care (01) ==
LOC: LAB 09:02
PROVIDERS: PCP Family Medicine Geriatric Medicine; Referring Provider Internal Medicine Cardiovascular Disease; Visit Provider Internal Medicine Cardiovascular Disease
DX: I48.11 Longstanding persistent atrial fibrillation (principal); Z79.01 Long term (current) use of anticoagulants
CPT/HCPCS: 36415; 85610

== ENCOUNTER → 2023-09-28 | Outpatient (CLI) | payer MEDICARE, SELFPAY ==
[2023-09-28 10:02] LABS: International Normalized Ratio 1.8; Prothrombin Time (Protime)PT. 21.3 SECONDS (11.7-14.9)
== END | disposition home or self-care (01) ==
LOC: LAB 08:00
PROVIDERS: PCP Family Medicine Geriatric Medicine; Visit Provider Internal Medicine Cardiovascular Disease
DX: I48.11 Longstanding persistent atrial fibrillation (principal); Z79.01 Long term (current) use of anticoagulants
CPT/HCPCS: 36415; 85610

== ENCOUNTER → 2023-10-05 | Outpatient (CLI) | payer MEDICARE, SELFPAY ==
[2023-10-05 10:41] LABS: International Normalized Ratio 2.1; Prothrombin Time (Protime)PT. 23.6 SECONDS (11.7-14.9)
== END | disposition home or self-care (01) ==
LOC: LAB 09:27
PROVIDERS: PCP Family Medicine Geriatric Medicine; Visit Provider Internal Medicine Cardiovascular Disease
DX: I48.11 Longstanding persistent atrial fibrillation (principal); Z79.01 Long term (current) use of anticoagulants
CPT/HCPCS: 36415; 85610

== ENCOUNTER → 2023-10-19 | Outpatient (CLI) | payer MEDICARE, SELFPAY ==
[2023-10-19 10:37] LABS: International Normalized Ratio 2.3
== END | disposition home or self-care (01) ==
LOC: LAB 09:49
PROVIDERS: PCP Family Medicine Geriatric Medicine; Visit Provider Internal Medicine Cardiovascular Disease
DX: I48.11 Longstanding persistent atrial fibrillation (principal); Z79.01 Long term (current) use of anticoagulants
CPT/HCPCS: 36415; 85610

== ENCOUNTER → 2023-10-21 | Outpatient (CLI) | payer MEDICARE, SELFPAY ==
[2023-10-21 11:04] LABS: Basophil# 0.02 X10^3/uL; Basophil% 0.4 % (0-1); Eosinophils% 4.4 % (0-5); Hematocrit 36.8 % (40-54); Hemoglobin 11.8 g/dL (13.0-16.5); Lymphocyte % 21.9 % (19-41); Mean Corp Hgb Conc 32.1 g/dL (32-36); Mean Corpuscular Hgb 29.2 pg (27.0-32.0); Mean Corpuscular Volume 91.1 fL (80-94); Mean Platelet Vol. 8.8 fl (6.2-12.0); Monocyte# 0.35 X10^3/uL; Monocyte% 7.7 % (0-10); NRBC Flagged by Analyzer 0 % (0-5); Neutrophil # 2.97 X10^3/uL (2.7-7.7); Neutrophil % 65.2 % (47-70); Platelet Count 120 K/mm3 (150-450); RBC Distribution Width CV 13.2 % (11.6-14.6); RBC Distribution Width SD 44.6 fl (35.1-43.9); Red Blood Count 4.04 M/mm3 (4.6-6.2); White Blood Count 4.6 K/mm3 (4.4-11.0)
[2023-10-21 12:50] LABS: Vitamin D,25 Hydroxy 56.7 ng/mL
[2023-10-21 13:04] LABS: ALB/GLOB Ratio 0.8 RATIO (0.9-2.4); AST(SGOT) 23 U/L (15-37); Alanine Aminotransfer ALT/SGPT 19 U/L (16-61); Albumin, Serum 3.4 g/dL (3.2-5.0); Alkaline Phosphatase 132 U/L (45-117); Anion Gap 4 (5-15); BUN 19 mg/dL (7-18); BUN/Creat Ratio 32.3 RATIO (10-20); Calcium,Total 8.5 mg/dL (8.5-10.1); Chloride 109 mmol/L (98-107); Creatinine, Serum 0.59 mg/dL (0.70-1.30); EST Glomerular Filtration Rate 142 mL/min (>60); Est Glom Filt Rate - Afr Amer 172 mL/min (>60); Globulin 4.2 g/dL (2.2-4.2); Glucose 93 mg/dL (74-106); Protein, Total 7.6 g/dL (6.4-8.2); Sodium Level 142 mmol/L (136-145); Thyroid Stim Hormone (TSH) 2.98 uIU/mL (0.358-3.74)
== END | disposition home or self-care (01) ==
LOC: POLAB3 10:44
PROVIDERS: PCP Family Medicine Geriatric Medicine; Visit Provider Family Medicine Geriatric Medicine
DX: I10 Essential (primary) hypertension (principal); E55.9 Vitamin D deficiency, unspecified
CPT/HCPCS: 36415; 80053; 82306; 84443; 85025

== ENCOUNTER → 2023-11-17 | Outpatient (CLI) | payer MEDICARE, SELFPAY ==
[2023-11-17 10:25] LABS: International Normalized Ratio 2.5; Prothrombin Time (Protime)PT. 27.6 SECONDS (11.7-14.9)
== END | disposition home or self-care (01) ==
LOC: LAB 09:25
PROVIDERS: PCP Family Medicine Geriatric Medicine; Visit Provider Internal Medicine Cardiovascular Disease
DX: I48.11 Longstanding persistent atrial fibrillation (principal); Z79.01 Long term (current) use of anticoagulants
CPT/HCPCS: 36415; 85610

== ENCOUNTER → 2023-12-15 | Outpatient (CLI) | payer MEDICARE, SELFPAY ==
[2023-12-15 10:37] LABS: International Normalized Ratio 2.4; Prothrombin Time (Protime)PT. 26.4 SECONDS (11.7-14.9)
== END | disposition home or self-care (01) ==
LOC: LAB 09:50
PROVIDERS: PCP Family Medicine Geriatric Medicine; Visit Provider Internal Medicine Cardiovascular Disease
DX: I48.11 Longstanding persistent atrial fibrillation (principal); Z79.01 Long term (current) use of anticoagulants
CPT/HCPCS: 36415; 85610

== ENCOUNTER → 2024-01-12 | Outpatient (CLI) | payer MEDICARE, SELFPAY ==
[2024-01-12 10:11] LABS: International Normalized Ratio 2.4; Prothrombin Time (Protime)PT. 26.1 SECONDS (11.7-14.9)
== END | disposition home or self-care (01) ==
LOC: LAB 08:57
PROVIDERS: PCP Family Medicine Geriatric Medicine; Visit Provider Internal Medicine Cardiovascular Disease
DX: I48.11 Longstanding persistent atrial fibrillation (principal); Z79.01 Long term (current) use of anticoagulants
CPT/HCPCS: 36415; 85610

== ENCOUNTER → 2024-02-09 | Outpatient (CLI) | payer MEDICARE, SELFPAY ==
[2024-02-09 10:26] LABS: International Normalized Ratio 2.4; Prothrombin Time (Protime)PT. 26.1 SECONDS (11.7-14.9)
== END | disposition home or self-care (01) ==
PROVIDERS: PCP Family Medicine Geriatric Medicine; Visit Provider Internal Medicine Cardiovascular Disease
DX: I48.11 Longstanding persistent atrial fibrillation (principal); Z79.01 Long term (current) use of anticoagulants
CPT/HCPCS: 36415; 85610

== ENCOUNTER → 2024-03-08 | Outpatient (CLI) | payer MEDICARE, SELFPAY | END | disposition home or self-care (01) | LOC: LAB 09:18 | PROVIDERS: PCP Family Medicine Geriatric Medicine; Visit Provider Internal Medicine Cardiovascular Disease | DX: I48.11 Longstanding persistent atrial fibrillation (principal); Z79.01 Long term (current) use of anticoagulants | CPT/HCPCS: 36415; 85610 ==

== ENCOUNTER 2024-03-12 09:27 | Observation (INO) | payer MEDICARE, SELFPAY ==
[2024-03-12] VITALS (8 sets, daily range): BP systolic 116–162; BP diastolic 65–99; PULSE 77–83; RESP 16–18; TEMP 36.4–37; O2SAT 94–98; BMI 38.2; BMI 33.7
--- NOTE | 2024-03-12 09:50 | ED.VIS.BACK ---
HPI History of Present Illness Chief Complaint: Back Informant: patient Narrative Narrative: Patient presents via EMS secondary to acute on chronic back pain. He has a history of chronic back pain with a compression fracture in his lumbar spine. He reports increased pain over the past 10 days. He has not had a recent fall. He has been trying to stretch his back to help relieve the pain. Pain radiates to the left hip where he had prior surgery but does not radiate down the leg. He called Dr. Johnson and has an appointment to be seen on Thursday. No problems with bowel or bladder control. No fever or chills. [facility] Medical History (Updated 03/12/24 @ 12:[address] 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 Longstanding persistent atrial fibrillation Onycholysis Sepsis Traumatic hemothorax (12/30/18) Venous insufficiency (chronic) (peripheral) Home Medications potassium chloride 20 mEq tablet,extended release 20 meq PO DAILY supplement 12/03/18 [History Last Taken 07/24/23] cetirizine 10 mg capsule 10 mg PO DAILY Allergy 12/27/18 [History Last Taken 07/24/23] metoprolol tartrate 50 mg tablet 50 mg PO BID bp 03/15/19 [History Last Taken 07/24/23] cholecalciferol (vitamin D3) 1,250 mcg (50,000 unit) capsule 1,000 unit PO DAILY supplement 10/29/20 [History Last Taken 07/24/23] citalopram 10 mg tablet 10 mg PO QHS depression 12/01/22 [History Last Taken 07/24/23] furosemide 40 mg tablet 20 mg PO DAILY fluid pill 12/01/22 [History Last Taken 07/24/23] losartan 100 mg tablet (Cozaar) 100 mg PO DAILY BP 12/01/22 [History Last Taken Unknown] terazosin 10 mg capsule 10 mg PO QPM BPH 12/01/22 [History Last Taken 07/24/23] acetaminophen 500 mg tablet 1,000 mg PO Q8 pain 12/03/22 [History Last Taken 07/24/23] enzalutamide 40 mg tablet (Xtandi) 160 mg (4 x 40 mg) PO QPM #0 tabs 12/16/22 [Rx Last Taken 07/24/23] fluticasone propionate 50 mcg/actuation nasal spray,suspension 2 spray NASAL DAILY #0 grams 12/16/22 [Rx Last Taken 07/24/23] lidocaine 5 % topical patch 1 patch topical DAILY 30 days #30 ea 12/16/22 [Rx Last Taken Unknown] atorvastatin 40 mg tablet 80 mg PO QHS 07/25/23 [History Last Taken 07/24/23] warfarin 6 mg tablet (Jantoven) 9 mg PO DINNER 07/25/23 [History Last Taken 07/22/23] oxycodone 5 mg tablet 2.5 - 5 mg (0.5 - 1 x 5 mg) PO Q4H PRN PRN Pain Score 6-10 3 days #7 tabs 07/30/23 [Rx Last Taken Unknown] sennosides 8.6 mg-docusate sodium 50 mg tablet (Stool Softener-Stimulant Laxative) 2 tab PO BID constipation 30 days #0 tabs 07/30/23 [Rx Last Taken Unknown] warfarin 5 mg tablet 7.5 mg PO .COMPLEX #60 tabs 02/05/24 [Rx Last Taken Unknown] oxycodone 5 mg tablet 5 mg PO Q8H PRN pain 3 days #10 tabs 03/12/24 [Rx Last Taken Unknown] sennosides 8.6 mg-docusate sodium 50 mg tablet (Senna with Docusate Sodium) 2 tab-cap (2 x 8.6-50 mg) PO BID PRN constipation #30 tabs 03/12/24 [Rx Last Taken Unknown] Allergy/AdvReac Type Severity Reaction Status Date / Time amiodarone AdvReac Intermediate It did not Verified 03/12/24 09:36 work, also bad dreams and neuropathy Family History Father , Age 57 Myocardial infarction CAD (coronary artery disease) ETOH abuse Mother , Age 47, of bone cancer Bone cancer Brother , age 45, of AIDS AIDS (acquired immune deficiency syndrome) Surgical History H/O cervical spine surgery (01/2020) H/O coronary artery bypass surgery (11/26/98) History of left heart catheterization (11/26/98) History of left hip hemiarthroplasty History of thoracic spinal fusion (12/30/18) Social History household members: none Smoking Status: Former smoker alcohol intake: current details: once a week substance use type: does not use ROS ROS ED Constitutional Constitutional ED: Denies chills or fever(s) Eyes Eyes: Denies discharge from eye(s) ENT ENT ED: Denies discharge from eye(s), rhinorrhea or sore throat Cardiovascular Cardiovascular: Denies chest pain or palpitations Respiratory/Chest Respiratory/Chest: Denies cough or dyspnea Gastrointestinal Gastrointestinal: Denies abdominal pain, nausea or vomiting Genitourinary Genitourinary ED: Denies dysuria Musculoskeletal Musculoskeletal: Reports back pain; Denies extremity pain Integumentary Denies Abrasions or rash Neurologic Neurologic: Reports weakness; Denies headache(s) Psychiatric Psychiatric: Denies anxiety or depression Allergic/Immunologic Allergic/Immunologic ED: Denies lip swelling or urticaria EXAM Physical Exam Const Vital Signs: 03/12/24 09:28 03/12/24 11:27 Temperature 97.8 F 98.6 F Temperature Source Oral Temporal Pulse Rate 78 77 Respiratory Rate 18 16 Blood Pressure 162/83 H 145/99 H Blood Pressure Mean 109 114 Pulse Ox 98 97 Oxygen Delivery Method Room Air Room Air Positive well nourished and well developed General Appearance ED: well developed HEENT Reports moist mucous membranes Eyes EOMs intact bilaterally Resp normal respiratory effort and clear to auscultation bilaterally Cardio regular rate and regular rhythm GI soft to palpation and non-tender Extremity Extremity Narrative: Chronic venous skin changes bilateral lower extremities. Good sensation and distal pulses. Neuro oriented x3 and no sensory deficits noted Motor Exam: strength 5/5 throughout Psych mental status grossly normal MDM MDM MDM Narrative Medical decision making narrative: OARRS report was reviewed. Patient has not had a prescription since December 2022. He will be given 5 mg of p.o. oxycodone here and we will repeat lumbar spine x-rays given his known history of compression fracture. History & Record Review Discussion w/independent historian: Patient Radiography Diagnostic Testing: Clinical Impression(s) from Imaging Studies Lumbar Spine X-Ray 03/12/24 10:10 IMPRESSION: 1. Moderate to severe compression fracture of L4 vertebra of undetermined age and could be chronic. 2. Multilevel degenerative changes. Electronically Signed: Lefty Patel MD at 10:46 EDT , Treatment and Re-Evaluation Narrative: Following oxycodone here patient's pain is much better controlled. Lumbar spine x-rays per my interpretation reveal significant compression fracture at L4. I am able to compare this to 2 prior studies performed last year and fracture site appears stable. Radiology interpretation is reviewed. Patient presents on a Thursday morning for evaluation. He has follow-up scheduled with Dr. Johnson on Thursday. He does feel that he can go home with pain medication this weekend and follow-up as an outpatient. I will send a prescription for oxycodone to the pharmacy for him. Return instructions given. Nursing staff went in to get the patient discharged to home. He stood at bedside to pivot to a wheelchair and was unable to secondary to pain. He was placed back in bed. Patient does live alone. IV line will be established and baseline labs obtained for admission. I will speak with hospitalist. Discharge Plan Triage Chief Complaint: Back ED Provider: Jie Brady Dx/Rx/DC Orders Clinical Impression: Compression fracture of L4 vertebra, Back pain, Unable to ambulate Instructions: Compression Fx, ED Back Pain (Acute or Chronic) Prescriptions: New oxycodone 5 mg tablet 5 mg PO Q8H PRN (Reason: pain) 3 Days Qty: 10 0RF sennosides-docusate sodium [Senna with Docusate Sodium] 8.6-50 mg tablet 2 tab-cap PO BID PRN (Reason: constipation) Qty: 30 0RF No Action potassium chloride 20 mEq tablet extended release 20 meq PO DAILY cholecalciferol (vitamin D3) 1,250 mcg (50,000 unit) capsule 1,000 unit PO DAILY metoprolol tartrate 50 mg tablet 50 mg PO BID cetirizine 10 MG capsule 10 mg PO DAILY furosemide 40 mg tablet 20 mg PO DAILY Patient Comments: TAKE 1 TABLET BY MOUTH EVERY DAY citalopram 10 mg tablet 10 mg PO QHS Patient Comments: TAKE 1 TABLET BY MOUTH EVERY DAY losartan [Cozaar] 100 mg tablet 100 mg PO DAILY Hold Instructions: Pt has been DC'd Patient Comments: TAKE 1 TABLET BY MOUTH EVERY DAY terazosin 10 mg capsule 10 mg PO QPM Patient Comments: TAKE 1 CAPSULE BY MOUTH EVERYDAY AT BEDTIME acetaminophen 500 mg tablet 1,000 mg PO Q8 lidocaine 5 % Adhesive Patch,Medicated 1 patch topical DAILY 30 Days Qty: 30 0RF Protocol: *Topical Application Instructions APPLICATION INSTRUCTIONS: chronic back pain fluticasone propionate 50 mcg/actuation [place],Suspension 2 spray NASAL DAILY Qty: 0 0RF Xtandi 40 mg Tablet 160 mg PO QPM Qty: 0 0RF atorvastatin 40 mg Tablet 80 mg PO QHS warfarin [Jantoven] 6 mg Tablet 9 mg PO DINNER Protocol: Dose Management Condition: Thursday Dose/Route: 7.5 mg Instruction: 1.5 x 5 mg tablets Condition: Thursday Dose/Route: 7.5 mg Instruction: 1.5 x 5 mg tablets Condition: Thursday Dose/Route: 7.5 mg Instruction: 1.5 x 5 mg tablets Condition: Thursday Dose/Route: 7.5 mg Instruction: 1.5 x 5 mg tablets Condition: Dose/Route: 7.5 mg Instruction: 1.5 x 5 mg tablets Condition: Thursday Dose/Route: 7.5 mg Instruction: 1.5 x 5 mg tablets Condition: Thursday Dose/Route: 7.5 mg Instruction: 1.5 x 5 mg tablets Protocol Text: Adjustment Start Date: Thursday03/08/24 INR Value: 3.0 INR Date: 03/08/24 Recheck Date: 04/05/24 Patient Comments: Pt takes thursday, thursday, thursday sennosides-docusate sodium [Stool Softener-Stimulant Laxat] 8.6-50 mg Tablet 2 tab PO BID 30 Days Qty: 0 0RF oxycodone 5 mg Tablet 2.5 - 5 mg PO Q4H PRN PRN (Reason: Pain Score 6-10) 3 Days Qty: 7 0RF warfarin 5 mg tablet 7.5 mg PO .COMPLEX Qty: 60 4RF Protocol: Dose Management Condition: Thursday Dose/Route: 7.5 mg Instruction: 1.5 x 5 mg tablets Condition: Thursday Dose/Route: 7.5 mg Instruction: 1.5 x 5 mg tablets Condition: Thursday Dose/Route: 7.5 mg Instruction: 1.5 x 5 mg tablets Condition: Thursday Dose/Route: 7.5 mg Instruction: 1.5 x 5 mg tablets Condition: Dose/Route: 7.5 mg Instruction: 1.5 x 5 mg tablets Condition: Thursday Dose/Route: 7.5 mg Instruction: 1.5 x 5 mg tablets Condition: Thursday Dose/Route: 7.5 mg Instruction: 1.5 x 5 mg tablets Protocol Text: Adjustment Start Date: Thursday03/08/24 INR Value: 3.0 INR Date: 03/08/24 Recheck Date: 04/05/24 Patient Comments: pt takes 7.5 thursday, thursday, , thursday Rx Instructions: 7.5 mg orally every day; or as directed; Primary Care Provider: James Pisano Chi Referrals: Clark Johnson MD [Med Staff - Active Staff] - Keep [place] appointment James Pisano Chi, MD [Primary Care Provider] - Disposition Disposition: [facility]
[2024-03-12] MEDS: oxyCODONE 5 MG Tablet PO ×2 (10:03→14:07)
--- NOTE | 2024-03-12 10:10 | RAD_ITS ---
INDICATION: pain EXAMINATION/TECHNIQUE: X-RAY - XR Spine Lumbar 2 or 3 Views COMPARISON: No relevant prior comparison study available FINDINGS: VERTEBRAE: Moderate to severe compression fracture of L4 vertebra of undetermined age and could be chronic. Otherwise no evidence of acute compression fracture deformity. No spondylolisthesis. Increased lumbar lordosis. No substantial scoliosis. DISCS: The disc spaces are within normal limits. Endplate spondylosis at multiple levels. Fusion of T10 and T11 vertebrae with pedicle screws. INCLUDED ABDOMEN: Atherosclerotic calcifications of the abdominal aorta. Left hip arthroplasty. Radiation seeds in the region of the prostate. RAD/Lumbar Spine 2 or 3 Views IMPRESSION: 1. Moderate to severe compression fracture of L4 vertebra of undetermined age and could be chronic. 2. Multilevel degenerative changes. Electronically Signed: Lefty Patel MD at 10:46 EDT ,
--- NOTE | 2024-03-12 12:12 | PCM.HP.STD ---
[facility] - General General Date of Admission: 03/12/24 Date of Service: 03/12/24 Chief Complaint: Acute on chronic back pain with inability to ambulate HPI Narrative MEENAKSHI NI, is a 78 M who presented to [facility] ED on 03/12/2024 with worsening chronic low back pain and inability to ambulate. Patient has known history of chronic low back pain with L-spine compression fracture. Began to have worsening pain over the past 1 to 2 weeks. Denied any acute falls or acute reasons for the worsening pain. Patient previously followed with Dr. Johnson with pain management and had an injection in the low back about 2 years ago. Patient lives at home alone and generally has done fairly well on his own from a functional status standpoint. He does have family and friends in the area that help him with some tasks around the house. On arrival to the ED patient was given a dose of p.o. oxycodone and had moderate improvement in his back pain. Lumbar spine x-rays showed a significant compression fracture at L4 but this appeared stable compared to prior x-rays from last year. Initial plan was for patient to go home with outpatient follow-up appointment with Dr. Johnson already scheduled for Thursday, but when patient tried to stand at bedside and pivot to wheelchair he was unable to do this secondary to pain. Hospitalist was then contacted for admission. I saw patient at the bedside in the ED. Patient was sitting up comfortably in bed, conversing normally, in no acute distress. He was very kind and apologizing for needing to come into the hospital. He stated his back pain at rest currently is pretty minimal. Patient is somewhat frustrated that his back pain seems to worsen over the past 1 to 2 weeks without any trigger for the worsening back pain. He denies any fevers or chills. Denies any other new pain or discomfort. He typically takes scheduled Tylenol and use lidocaine patch at home for pain, and uses oxycodone very sparingly. However, states that when he is needed admitted in the past the oxycodone and Dilaudid as needed regimen has been good for him. Does note that opiates cause significant constipation for him and was asking for a bowel regimen to be scheduled for him. He otherwise denied any acute concerns. [facility] Medical History (Updated 03/12/24 @ 12:[address] Jie Brady MD) Ankle fracture, left Atherosclerotic heart disease of [place] coronary artery without angina pectoris Atrial fibrillation Closed fracture of left hip Closed left humeral fracture Closed wedge compression fracture of T11 vertebra Debility Essential hypertension Fall Former tobacco use Fracture of ninth thoracic vertebra (12/27/18) History of Clostridium difficile infection (01/09/19) History of subdural hematoma (post traumatic) (12/27/18) Hyperlipidemia [facility] (current) use of anticoagulants Longstanding persistent atrial fibrillation Onycholysis Sepsis Traumatic hemothorax (12/30/18) Venous insufficiency (chronic) (peripheral) Home Medications potassium chloride 20 mEq tablet,extended release 20 meq PO DAILY supplement 12/03/18 [History Last Taken 03/11/24] cetirizine 10 mg capsule 10 mg PO DAILY Allergy 12/27/18 [History Last Taken 03/11/24] metoprolol tartrate 50 mg tablet 50 mg PO BID bp 03/15/19 [History Last Taken 03/11/24] cholecalciferol (vitamin D3) 1,250 mcg (50,000 unit) capsule 1,000 unit PO DAILY supplement 10/29/20 [History Last Taken 03/11/24] citalopram 10 mg tablet 10 mg PO QHS depression 12/01/22 [History Last Taken 03/11/24] terazosin 10 mg capsule 10 mg PO QPM BPH 12/01/22 [History Last Taken 03/11/24] enzalutamide 40 mg tablet (Xtandi) 160 mg (4 x 40 mg) PO QPM #0 tabs 12/16/22 [Rx Last Taken 07/24/23] fluticasone propionate 50 mcg/actuation nasal spray,suspension 2 spray NASAL DAILY #0 grams 12/16/22 [Rx Last Taken 03/11/24] lidocaine 5 % topical patch 1 patch topical DAILY 30 days #30 ea 12/16/22 [Rx Last Taken Unknown] acetaminophen 650 mg tablet,extended release (8 Hour Pain Reliever) 650 mg PO Q8H PRN pain 03/12/24 [History Last Taken 03/12/24] atorvastatin 80 mg tablet 80 mg PO DAILY 03/12/24 [History Last Taken 03/11/24] furosemide 20 mg tablet 20 mg PO DAILY 03/12/24 [History Last Taken 03/11/24] oxycodone 5 mg tablet 5 mg PO Q8H PRN pain 3 days #10 tabs 03/12/24 [Rx Last Taken Unknown] sennosides 8.6 mg-docusate sodium 50 mg tablet (Senna with Docusate Sodium) 2 tab-cap (2 x 8.6-50 mg) PO BID PRN constipation #30 tabs 03/12/24 [Rx Last Taken Unknown] warfarin 5 mg tablet 7.5 mg PO DAILY BLOOD THINNER 03/12/24 [History Last Taken 03/11/24] Allergy/AdvReac Type Severity Reaction Status Date / Time amiodarone AdvReac Intermediate It did not Verified 03/12/24 09:36 work, also bad dreams and neuropathy Family History Father , Age 57 Myocardial infarction CAD (coronary artery disease) ETOH abuse Mother , Age 47, of bone cancer Bone cancer Brother , age 45, of AIDS AIDS (acquired immune deficiency syndrome) Surgical History H/O cervical spine surgery (01/2020) H/O coronary artery bypass surgery (11/26/98) History of left heart catheterization (11/26/98) History of left hip hemiarthroplasty History of thoracic spinal fusion (12/30/18) Social History household members: none Smoking Status: Former smoker alcohol intake: current details: once a week substance use type: does not use ROS Constitutional Constitutional: Denies chills, fatigue or fever(s) Cardiovascular Cardiovascular: Denies chest pain Respiratory/Chest Respiratory/Chest: Denies shortness of breath at rest Gastrointestinal Gastrointestinal: Denies abdominal pain Musculoskeletal Musculoskeletal: Reports back pain Neurologic Neurologic: Reports abnormal gait, numbness and paresthesias; Denies dizziness or focal weakness Vital Signs Vital Signs Vital Signs: 03/12/24 09:28 03/12/24 11:27 Temperature 97.8 F 98.6 F Temperature Source Oral Temporal Pulse Rate 78 77 Respiratory Rate 18 16 Blood Pressure 162/83 H 145/99 H Blood Pressure Mean 109 114 Pulse Ox 98 97 Oxygen Delivery Method Room Air Room Air Weight Weight: 128 kg Body Mass Index (BMI) 38.2 Physical Exam Const alert, oriented x3 and no apparent distress Constitutional Narrative: Pleasant elderly male, obese, sitting up comfortably in bed, conversing normally, in no acute distress. General Appearance: cooperative and comfortable HEENT normocephalic, head/scalp atraumatic, hearing grossly normal bilaterally, nasal mucous membranes and turbinates normal and moist oral mucous membranes Eyes PERRL, EOMs intact bilaterally and conjunctivae normal Neck full ROM Chest inspection of chest normal Resp normal respiratory effort, normal air movement, no use of accessory muscles and clear to auscultation bilaterally Cardio regular rate, regular rhythm, no murmurs and peripheral pulses 2+ throughout GI normal to inspection, nondistended, normoactive bowel sounds, soft to palpation, non-tender and non-distended Back/Spine Back/Spine Narrative: Decreased range of motion in low back due to pain. No significant tenderness to palpation in spinous processes or paraspinal musculature. Extremity normal to inspection and no pedal edema Skin no rashes or lesions noted Neuro Speech: speech normal Psych mental status grossly normal Results Lab / Micro Data 03/12/24 12:20 03/12/24 12:20 Imaging Radiology Impression Lumbar Spine X-Ray 03/12/24 10:10 IMPRESSION: 1. Moderate to severe compression fracture of L4 vertebra of undetermined age and could be chronic. 2. Multilevel degenerative changes. Electronically Signed: Lefty Patel MD at 10:46 EDT , Assessment & Plan Assessment/Plan (1) Back pain: (2) Unable to ambulate: (3) Compression fracture of L4 vertebra: PLAN: Plan Patient is a 78-year-old male who presented to [facility] ED on 03/12/2024 for with acute on chronic back pain and inability to ambulate. 1. Acute on chronic back pain with chronic L4 compression fracture, inability to ambulate Presented with 1 to 2 weeks of acutely worsening chronic back pain. No falls or trauma noted. Lumbar x-ray in ED showed known L4 compression fractures that appeared stable from previous. Unable to ambulate in the ED and lives alone at home. Afebrile, hemodynamically stable, noninfectious appearing. ? Admit under observation status to [facility]. PT/OT/case management consulted. Pain management consulted. Will treat with scheduled Tylenol, lidocaine patch, oxycodone as needed and IV Dilaudid as needed for now. Scheduled senna and MiraLAX for bowel regimen. Will hold on orthopedic surgery consult for now but can get them involved if recommended by pain management. Chronic medical conditions: ? Obesity: BMI 38 on admit. Complicates hospital course, care and prognosis. ? Paroxysmal A-fib: Regular rate and rhythm in the ED. Continue home warfarin and Lopressor. ? CAD s/p remote CABG, hypertension, hyperlipidemia: Stable. Continue home warfarin, atorvastatin, Lasix, Lopressor. ? History of thoracic spinal fusion in 2018, cervical spine surgery in 2019, left hip fracture s/p left hip hemiarthroplasty in 2021 ? Allergies: Continue home cetirizine and Flonase. ? BPH with obstructive symptoms: Continue home terazosin. ? History of prostate cancer: Continue home Xtandi. ? Depression: Stable. Continue home citalopram. ? Former tobacco use: Encouraged continued cessation. DVT prophylaxis: Warfarin CODE STATUS: Full code, verified Expected disposition: Home with home health care versus SNF, TBD Total clinical time spent by myself addressing the patient's medical issues, reviewing all the data, and collaborating with patient's care team: 55 minutes. Charges/Coding Visit Charges Inpatient E&M: 75966 Init Hosp L2
[2024-03-12 12:32] LABS: Absolute Lymphocyte Count 1.02 X10^3/uL (0.83-4.51); Basophil# 0.02 X10^3/uL; Basophil% 0.3 % (0-1); Eosinophil# 0.08 X10^3/uL; Eosinophils% 1.2 % (0-5); Lymphocyte # 1.02 X10^3/ul (0.83-4.51); Lymphocyte % 15.7 % (19-41); Mean Corp Hgb Conc 33.3 g/dL (32-36); Mean Corpuscular Hgb 29.7 pg (27.0-32.0); Mean Platelet Vol. 8.9 fl (6.2-12.0); Monocyte# 0.34 X10^3/uL; Monocyte% 5.2 % (0-10); NRBC Flagged by Analyzer 0 % (0-5); Neutrophil % 77.3 % (47-70); Platelet Count 123 K/mm3 (150-450); RBC Distribution Width SD 41.8 fl (35.1-43.9); Red Blood Count 4.38 M/mm3 (4.6-6.2); White Blood Count 6.5 K/mm3 (4.4-11.0)
[2024-03-12 12:45] LABS: Anion Gap 3 (5-15); BUN 14 mg/dL (7-18); BUN/Creat Ratio 23.7 RATIO (10-20); Calcium,Total 9.6 mg/dL (8.5-10.1); Chloride 107 mmol/L (98-107); Creatinine, Serum 0.59 mg/dL (0.70-1.30); EST Glomerular Filtration Rate 142 mL/min (>60); Est Glom Filt Rate - Afr Amer 172 mL/min (>60); Estimated Creatinine Clearance 108.62 ml/min; Glucose 117 mg/dL (74-106); Potassium 3.7 mmol/L (3.5-5.1); Sodium Level 141 mmol/L (136-145)
[2024-03-12 13:02] LABS: International Normalized Ratio 2.3; Prothrombin Time (Protime)PT. 25.1 SECONDS (11.7-14.9)
[2024-03-12] MEDS: Acetaminophen 500 MG Tablet 1000 MG PO ×2 (14:07→21:08)
[2024-03-12] MEDS: Ensure Plus High Protein 120 ML LIQUID PO (17:02)
[2024-03-12] MEDS: Doxazosin 4 MG Tablet 8 MG PO (21:05)
[2024-03-12] MEDS: Metoprolol Tartrate 50 MG Tablet PO (21:05)
[2024-03-12] MEDS: Citalopram 10 MG Tablet PO (21:06)
[2024-03-12] MEDS: Menthol/Lanolin/Calamine/Znox 113 GM Tube 1 APPLIC TOPICAL (21:06)
[2024-03-12] MEDS: Atorvastatin Calcium 40 MG Tablet PO (21:07)
[2024-03-12] MEDS: Senna/Docusate Sodium 1 Tablet 2 TABLET PO (21:07)
[2024-03-12] MEDS: Nystatin Powder 15gm Bottle 1 APPLIC TOPICAL (21:07)
[2024-03-13] VITALS (8 sets, daily range): BP systolic 111–160; BP diastolic 75–102; PULSE 64–90; RESP 16–18; TEMP 36.4–36.8; O2SAT 95–97
[2024-03-13] MEDS: oxyCODONE 5 MG Tablet PO ×3 (02:34→23:17)
[2024-03-13] MEDS: Acetaminophen 500 MG Tablet 1000 MG PO ×3 (05:45→22:58)
[2024-03-13 06:50] LABS: Hematocrit 34.7 % (40-54); Hemoglobin 11.6 g/dL (13.0-16.5); Mean Corp Hgb Conc 33.4 g/dL (32-36); Mean Corpuscular Hgb 29.8 pg (27.0-32.0); Mean Corpuscular Volume 89.2 fL (80-94); Mean Platelet Vol. 9.1 fl (6.2-12.0); Platelet Count 111 K/mm3 (150-450); RBC Distribution Width CV 13.2 % (11.6-14.6); RBC Distribution Width SD 42.9 fl (35.1-43.9); Red Blood Count 3.89 M/mm3 (4.6-6.2)
[2024-03-13 07:09] LABS: Anion Gap 3 (5-15); BUN 16 mg/dL (7-18); BUN/Creat Ratio 28.5 RATIO (10-20); Calcium,Total 8.9 mg/dL (8.5-10.1); Chloride 110 mmol/L (98-107); Creatinine, Serum 0.56 mg/dL (0.70-1.30); EST Glomerular Filtration Rate 150 mL/min (>60); Est Glom Filt Rate - Afr Amer 181 mL/min (>60); Estimated Creatinine Clearance 101.87 ml/min; Glucose 94 mg/dL (74-106); Potassium 3.5 mmol/L (3.5-5.1); Sodium Level 141 mmol/L (136-145)
[2024-03-13] MEDS: Fluticasone 0.05% 1 SPRAY NASAL.SRY 2 SPRAY NASAL (08:06)
[2024-03-13] MEDS: Furosemide 20 MG Tablet PO (08:07)
[2024-03-13] MEDS: Senna/Docusate Sodium 1 Tablet 2 TABLET PO ×2 (08:07→22:59)
[2024-03-13] MEDS: Cholecalciferol (VIT D3) 25 MCG TABLET (1,000 UNITS) PO (08:07)
[2024-03-13] MEDS: Metoprolol Tartrate 50 MG Tablet PO ×2 (08:08→22:59)
[2024-03-13] MEDS: Lidocaine 5% Patch 1 PATCH TOPICAL (08:08)
[2024-03-13] MEDS: Polyethylene Glycol 3350 17 GM PACKET PO (08:09)
[2024-03-13] MEDS: Loratadine 10 MG Tablet PO (08:09)
[2024-03-13] MEDS: Menthol/Lanolin/Calamine/Znox 113 GM Tube 1 APPLIC TOPICAL ×2 (08:10→22:58)
[2024-03-13] MEDS: Nystatin Powder 15gm Bottle 1 APPLIC TOPICAL ×2 (08:10→22:59)
[2024-03-13] MEDS: Ensure Plus High Protein 120 ML LIQUID PO ×3 (08:18→17:11)
--- NOTE | 2024-03-13 11:15 | PCM.PN.HOSP ---
Reason for Visit Reason for Visit: Diagnoses Dorsalgia, unspecified (03/12/24) Difficulty in walking, not elsewhere classified (03/12/24) Wedge compression fracture of fourth lumbar vertebra, initial encounter for closed fracture (03/12/24) Subjective Subjective No acute events overnight. Patient seen at bedside this morning. Sitting up comfortably in bed, conversing normally, in no acute distress. Reports mild low back pain or discomfort at rest. Has not been out of bed yet since coming to for yesterday, has not worked with physical therapy yet. Has taken 2 doses of oxycodone since arriving to the floor yesterday with moderate relief of pain. No other acute concerns today. Objective Data Objective Data Vital Signs: Vital Signs Temp Pulse Resp BP Pulse Ox O2 Del Method 97.6 F L 75 16 143/102 H 96 Room Air 03/13/24 08:45 03/13/24 08:45 03/13/24 08:45 03/13/24 08:45 03/13/24 08:45 03/13/24 08:45 Oxygen Delivery Method Room Air Weight: 112.808 kg Body Mass Index (BMI) 33.7 Intake & Output: Intake and Output for Last 24 Hours 03/11/24 03/12/24 03/13/24 23:59 23:59 23:59 Intake Total 400 / 700 550 / 550 Output Total 350 / 350 450 / 450 Balance 50 / 350 100 / 100 Medical Nutrition Assessment Dietitian: Malnutrition Criteria Met Start: 03/13/24 11:08 Freq: Status: Active Protocol: Document 03/13/24 11:08 (Rec: 03/13/24 11:08 [id number]) Nutrition Malnutrition Evidence of Malnutrition Exists Yes Malnutrition (severe): Acute Illness/Injury Evidenced By Suboptimal Energy Intake ( Severe),Weight Loss (Severe) Clinical Problem Acute Disease or Injury Related Malnutrition Etiology severe acute malnutrition related to inadequate energy intake d/t debility, pain Signs/Symptoms as evidenced by unintentional 5% wt loss x 2 weeks, estimated PO intake meeting < 50% of estimated energy needs x 1 week Status Active Problem Recommendation Dietitian Recommendations/Changes regular diet; ok to continue ensure plus high protein TID as ordered until adequate PO intake/appetite is fully established Lab / Micro Data 03/13/24 05:43 03/13/24 05:43 Labs: Laboratory Results - last 24 hr 03/12/24 12:20: WBC 6.5, RBC 4.38 L, Hgb 13.0, Hct 39.0 L, MCV 89.0, MCH 29.7, MCHC 33.3, RDW Std Deviation 41.8, RDW Coeff of Dick 13.0, Plt Count 123 L, MPV 8.9, Immature Gran % (Auto) 0.300, Neut % (Auto) 77.3 H, Lymph % (Auto) 15.7 L, [place] % (Auto) 5.2, Eos % (Auto) 1.2, Baso % (Auto) 0.3, Absolute Neuts (auto) 5.0, Absolute Lymphs (auto) 1.02, Nucleated RBC % 0, PT 25.1 H, INR 2.3, Sodium 141, Potassium 3.7, Chloride 107, Carbon Dioxide 31.0, Anion Gap 3 L, BUN 14, Creatinine 0.59 L, Estim Creat Clear Calc 108.62, Est GFR (MDRD) Af Amer 172, Est GFR (MDRD) Non-Af 142, BUN/Creatinine Ratio 23.7 H, Glucose 117 H, Calcium 9.6 03/13/24 05:43: WBC 6.0, RBC 3.89 L, Hgb 11.6 L, Hct 34.7 L, MCV 89.2, MCH 29.8, MCHC 33.4, RDW Std Deviation 42.9, RDW Coeff of Dick 13.2, Plt Count 111 L, MPV 9.1, Sodium 141, Potassium 3.5, Chloride 110 H, Carbon Dioxide 28.0, Anion Gap 3 L, BUN 16, Creatinine 0.56 L, Estim Creat Clear Calc 101.87, Est GFR (MDRD) Af Amer 181, Est GFR (MDRD) Non-Af 150, BUN/Creatinine Ratio 28.5 H, Glucose 94, Calcium 8.9 Physical Exam Const alert, oriented x3 and no apparent distress Constitutional Narrative: Pleasant elderly male, obese, sitting up comfortably in bed, conversing normally, in no acute distress. General Appearance: cooperative and comfortable HEENT normocephalic, head/scalp atraumatic, hearing grossly normal bilaterally, nasal mucous membranes and turbinates normal and moist oral mucous membranes Eyes PERRL, EOMs intact bilaterally and conjunctivae normal Neck full ROM Chest inspection of chest normal Resp normal respiratory effort, normal air movement, no use of accessory muscles and clear to auscultation bilaterally Cardio regular rate, regular rhythm, no murmurs and peripheral pulses 2+ throughout GI normal to inspection, nondistended, normoactive bowel sounds, soft to palpation, non-tender and non-distended Back/Spine Back/Spine Narrative: Decreased range of motion in low back due to pain. No significant tenderness to palpation in spinous processes or paraspinal musculature. Extremity normal to inspection and no pedal edema Skin no rashes or lesions noted Neuro Speech: speech normal Psych mental status grossly normal Assessment & Plan Assessment/Plan (1) Back pain: (2) Unable to ambulate: (3) Compression fracture of L4 vertebra: PLAN: Plan Patient is a 78-year-old male who presented to [facility] ED on 03/12/2024 for with acute on chronic back pain and inability to ambulate. 1. Acute on chronic back pain with chronic L4 compression fracture, inability to ambulate Presented with 1 to 2 weeks of acutely worsening chronic back pain. No falls or trauma noted. Lumbar x-ray in ED showed known L4 compression fractures that appeared stable from previous. Unable to ambulate in the ED and lives alone at home. Suspect may only be mild chronic worsening of known back pain with fracture. Afebrile, hemodynamically stable, noninfectious appearing. He has history of prostate cancer, PSA < 0.02 on 02/19/2024, no concern for mets from prostate cancer. ? Pain management and orthopedics consulted. PT/OT/case management consulted. Continue treatment with scheduled Tylenol, lidocaine patch, oxycodone as needed and IV Dilaudid as needed for now. Scheduled senna and MiraLAX for bowel regimen. Chronic medical conditions: ? Obesity: BMI 38 on admit. Complicates hospital course, care and prognosis. ? Paroxysmal A-fib: Regular rate and rhythm in the ED. Continue home warfarin and Lopressor. ? CAD s/p remote CABG, hypertension, hyperlipidemia: Stable. Continue home warfarin, atorvastatin, Lasix, Lopressor. ? History of thoracic spinal fusion in 2018, cervical spine surgery in 2019, left hip fracture s/p left hip hemiarthroplasty in 2021 ? Allergies: Continue home cetirizine and Flonase. ? BPH with obstructive symptoms: Continue home terazosin. ? History of prostate cancer: Continue home Xtandi. ? Depression: Stable. Continue home citalopram. ? Former tobacco use: Encouraged continued cessation. DVT prophylaxis: Warfarin CODE STATUS: Full code, verified Expected disposition: Home with home health care versus SNF, TBD Total clinical time spent by myself addressing the patient's medical issues, reviewing all the data, and collaborating with patient's care team: 35 minutes. Charges/Coding Visit Charges Inpatient E&M: 24304 Subs Hosp L2
[2024-03-13] MEDS: ENZALUTAMIDE 40 MG TABLET 160 MG PO (20:36)
[2024-03-13] MEDS: Doxazosin 4 MG Tablet 8 MG PO (22:58)
[2024-03-13] MEDS: Citalopram 10 MG Tablet PO (22:58)
[2024-03-13] MEDS: Atorvastatin Calcium 40 MG Tablet PO (23:00)
[2024-03-14] VITALS (11 sets, daily range): BP systolic 126–182; BP diastolic 67–101; PULSE 65–96; RESP 15–18; TEMP 36.6–37; O2SAT 15–96
[2024-03-14] MEDS: Acetaminophen 500 MG Tablet 1000 MG PO ×3 (06:33→23:07)
[2024-03-14] MEDS: Ensure Plus High Protein 120 ML LIQUID PO ×2 (08:19→17:47)
[2024-03-14] MEDS: Menthol/Lanolin/Calamine/Znox 113 GM Tube 1 APPLIC TOPICAL ×2 (08:20→22:00)
[2024-03-14] MEDS: Cholecalciferol (VIT D3) 25 MCG TABLET (1,000 UNITS) PO (08:20)
[2024-03-14] MEDS: Nystatin Powder 15gm Bottle 1 APPLIC TOPICAL ×2 (08:21→21:56)
[2024-03-14] MEDS: Polyethylene Glycol 3350 17 GM PACKET PO (08:21)
[2024-03-14] MEDS: Loratadine 10 MG Tablet PO (08:22)
[2024-03-14] MEDS: Fluticasone 0.05% 1 SPRAY NASAL.SRY 2 SPRAY NASAL (08:23)
[2024-03-14] MEDS: Lidocaine 5% Patch 1 PATCH TOPICAL (08:24)
[2024-03-14] MEDS: Furosemide 20 MG Tablet PO (08:24)
[2024-03-14] MEDS: Metoprolol Tartrate 50 MG Tablet PO ×2 (08:25→23:06)
[2024-03-14] MEDS: Senna/Docusate Sodium 1 Tablet 2 TABLET PO ×2 (08:27→23:07)
--- NOTE | 2024-03-14 10:43 | MRI_ITS ---
EXAM: MR LUMBAR SPINE WITHOUT INTRAVENOUS CONTRAST CLINICAL INDICATION: Chronic pain, h/o stenosis and L4 compression fx TECHNIQUE: Multiplanar and multisequence MR images of the lumbar spine without intravenous contrast. COMPARISON: No relevant prior studies available. FINDINGS: VERTEBRAE: Severe deformity of the L4 vertebral body noted consistent with chronic burst fracture. There is also prominent wedge compression deformity of the T11 vertebral body. Interpedicular screws in place at T11 bilaterally. SPINAL CORD: Normal. Normal position and signal intensity of the conus medullaris. SOFT TISSUES: Normal. DISCS/SPINAL CANAL/NEURAL FORAMINA: L1-L2: Moderate disc space narrowing. No disc protrusion. Facet arthropathy and ligamentous hypertrophy causes mild compression of the thecal sac. Intact neural foramina. L2-L3: Mild to moderate disc space narrowing. Broad-based disc bulging, ligamentous hypertrophy and facet arthropathy results in moderate spinal stenosis and mild bilateral neural foraminal narrowing. L3-L4: No disc extrusion. Facet arthropathy and ligamentous hypertrophy results in mild spinal stenosis. Moderate right and mild left neural foraminal narrowing related to bony hypertrophy. L4-L5: No disc herniation. Posterior lateral vertebral body hypertrophy, facet arthropathy and ligamentous hypertrophy resulting in marked spinal stenosis and severe bilateral neural foraminal narrowing. L5-S1: Mild central disc protrusion and prominent facet arthropathy results in moderate neural foraminal narrowing but no significant spinal stenosis. MRI/Spine Lumbar (Routine) IMPRESSION: 1. Chronic fractures of the T11 and L4 vertebral bodies. 2. Moderate L2-3 and severe L4-5 spinal stenosis as described above. 3. Multilevel neural foraminal narrowing. Electronically Signed: Miguel Orozco MD at 16:42 EDT ,
--- NOTE | 2024-03-14 10:43 | PN.HOSP_ITS ---
Subjective Subjective Doing well, pain is controlled today. He was able to sit in the chair yesterday Objective Data Objective Data Vital Signs: Vital Signs Temp Pulse Resp BP Pulse Ox O2 Del Method 98.6 F 96 18 129/75 H 93 Room Air 03/14/24 08:04 03/14/24 08:25 03/14/24 08:04 03/14/24 08:25 03/14/24 08:04 03/14/24 08:04 Oxygen Delivery Method Room Air Weight: 248 lb 11.185 oz Body Mass Index (BMI) 33.7 Intake & Output: Intake and Output for Last 24 Hours 03/13/24 03/14/24 03/15/24 03:59 03:59 03:59 Intake Total 700 / 700 1350 / 1350 300 / 300 Output Total 350 / 350 1950 / 1950 300 / 300 Balance 350 / 350 -600 / -600 0 / 0 Medical Nutrition Assessment Dietitian: Malnutrition Criteria Met Start: 03/13/24 11:08 Freq: Status: Active Protocol: Document 03/13/24 11:08 (Rec: 03/13/24 11:08 [id number]) Nutrition Malnutrition Evidence of Malnutrition Exists Yes Malnutrition (severe): Acute Illness/Injury Evidenced By Suboptimal Energy Intake ( Severe),Weight Loss (Severe) Clinical Problem Acute Disease or Injury Related Malnutrition Etiology severe acute malnutrition related to inadequate energy intake d/t debility, pain Signs/Symptoms as evidenced by unintentional 5% wt loss x 2 weeks, estimated PO intake meeting < 50% of estimated energy needs x 1 week Status Active Problem Recommendation Dietitian Recommendations/Changes regular diet; ok to continue ensure plus high protein TID as ordered until adequate PO intake/appetite is fully established Lab / Micro Data 03/13/24 05:43 03/13/24 05:43 Physical Exam Narrative General: Alert, Oriented x3, Cooperative, No apparent distress HEENT: Atraumatic, PERRLA, EOMI, Normocephalic Oral: Moist Mucosa Neck: Supple, No JVD Lungs: Diminished, Normal air movement, No rhonchi, No wheeze, No rales Cardiovascular: Regular rate, Regular Rhythm, Normal S1, Normal S2, No murmurs Abdomen: Soft, Non Tender, Non-Distended, No Hepato-splenomegaly Extremities: No edema, Capillary Refill Less than 3 Seconds Skin: No rashes, No breakdown Musculoskeletal: No Tenderness to Palpation of Joints or Extremities Neurological: No focal neurological deficits, Motor Exam 5/5 strength throughout, Sensory exam intact to light touch and pain Psych/Mental Status: Normal Affect, Appropriate Assessment & Plan Assessment/Plan (1) Back pain: (2) Unable to ambulate: (3) Compression fracture of L4 vertebra: PLAN: Plan Patient is a 78-year-old male who presented to [facility] ED on 03/12/2024 for with acute on chronic back pain and inability to ambulate. 1. Acute on chronic back pain with chronic L4 compression fracture, inability t o ambulate Presented with 1 to 2 weeks of acutely worsening chronic back pain. No falls or trauma noted. Lumbar x-ray in ED showed known L4 compression fractures that appeared stable from previous. Unable to ambulate in the ED and lives alone at home. Suspect may only be mild chronic worsening of known back pain with fracture. Afebrile, hemodynamically stable, noninfectious appearing. He has history of prostate cancer, PSA < 0.02 on 02/19/2024, no concern for mets from prostate cancer. ? Pain management and orthopedics consulted. PT/OT/case management consulted. Continue treatment with scheduled Tylenol, lidocaine patch, oxycodone as needed and IV Dilaudid as needed for now. Scheduled senna and MiraLAX for bowel regimen. 03/14/2024: Plan for consult to pain management this afternoon and will obtain an MRI to help assist orthopedics evaluation when they are able to see him tomorro w. He did have a previous history of stenosis noted on MRI in 2021 Chronic medical conditions: ? Obesity: BMI 38 on admit. Complicates hospital course, care and prognosis. ? Paroxysmal A-fib: Regular rate and rhythm in the ED. Continue home warfarin and Lopressor. ? CAD s/p remote CABG, hypertension, hyperlipidemia: Stable. Continue home warfarin, atorvastatin, Lasix, Lopressor. ? History of thoracic spinal fusion in 2019, cervical spine surgery in 2019, left hip fracture s/p left hip hemiarthroplasty in 2021 ? Allergies: Continue home cetirizine and Flonase. ? BPH with obstructive symptoms: Continue home terazosin. ? History of prostate cancer: Continue home Xtandi. ? Depression: Stable. Continue home citalopram. ? Former tobacco use: Encouraged continued cessation. DVT: Coumadin Charges/Coding Visit Charges Inpatient E&M: 40932 Subs Hosp L2
--- NOTE | 2024-03-14 13:05 | CASEMGMT ---
Met with patient to complete HOLLIS form. HOLLIS form explained to patient who voiced understanding and signed form. Original form placed in pt?s chart and copy provided to?patient. Milagro Izaguirre, Discharge Planning Asst
[2024-03-14] MEDS: 0.9% Saline Lock 10 ML Syringe IV (14:42)
[2024-03-14] MEDS: LORazepam 2 MG/ML Syringe 0.5 MG IV (14:42)
[2024-03-14] MEDS: ENZALUTAMIDE 40 MG TABLET 160 MG PO (21:54)
[2024-03-14] MEDS: Doxazosin 4 MG Tablet 8 MG PO (23:06)
[2024-03-14] MEDS: Atorvastatin Calcium 40 MG Tablet PO (23:07)
[2024-03-14] MEDS: Citalopram 10 MG Tablet PO (23:08)
[2024-03-15] MEDS: Ondansetron 4 MG/2 ML Vial IV (00:33)
[2024-03-15] MEDS: 0.9% Saline Lock 10 ML Syringe IV (00:41)
[2024-03-15] MEDS: MELATONIN 3 MG TABLET PO (00:44)
[2024-03-15] MEDS: oxyCODONE 5 MG Tablet PO (00:44)
[2024-03-15 04:00] VITALS: BP 141/67; PULSE 64; RESP 15; TEMP 36.8; O2SAT 94
[2024-03-15] MEDS: Acetaminophen 500 MG Tablet 1000 MG PO ×3 (05:50→20:28)
[2024-03-15 07:25] LABS: Absolute Lymphocyte Count 1.36 X10^3/uL (0.83-4.51); Absolute Neutrophil Count 3.8 X10^3/uL (2.0-7.7); Basophil# 0.01 X10^3/uL; Basophil% 0.2 % (0-1); Eosinophil# 0.18 X10^3/uL; Eosinophils% 3.1 % (0-5); Hematocrit 34.1 % (40-54); Hemoglobin 11.5 g/dL (13.0-16.5); Lymphocyte # 1.36 X10^3/ul (0.83-4.51); Lymphocyte % 23.4 % (19-41); Mean Corp Hgb Conc 33.7 g/dL (32-36); Mean Corpuscular Hgb 30.1 pg (27.0-32.0); Mean Corpuscular Volume 89.3 fL (80-94); Mean Platelet Vol. 8.9 fl (6.2-12.0); Monocyte# 0.45 X10^3/uL; Monocyte% 7.8 % (0-10); NRBC Flagged by Analyzer 0 % (0-5); Neutrophil # 3.79 X10^3/uL (2.7-7.7); Neutrophil % 65.3 % (47-70); Platelet Count 104 K/mm3 (150-450); RBC Distribution Width CV 13.1 % (11.6-14.6); RBC Distribution Width SD 42.2 fl (35.1-43.9); Red Blood Count 3.82 M/mm3 (4.6-6.2); White Blood Count 5.8 K/mm3 (4.4-11.0)
[2024-03-15 07:52] LABS: Anion Gap 2 (5-15); BUN 14 mg/dL (7-18); BUN/Creat Ratio 25.1 RATIO (10-20); Calcium,Total 8.7 mg/dL (8.5-10.1); Chloride 106 mmol/L (98-107); Creatinine, Serum 0.56 mg/dL (0.70-1.30); EST Glomerular Filtration Rate 151 mL/min (>60); Est Glom Filt Rate - Afr Amer 183 mL/min (>60); Estimated Creatinine Clearance 101.87 ml/min; Glucose 109 mg/dL (74-106); Sodium Level 140 mmol/L (136-145)
[2024-03-15 08:20] VITALS: BP 131/75; PULSE 68; RESP 18; TEMP 36.8; O2SAT 95
[2024-03-15] MEDS: Lidocaine 5% Patch 1 PATCH TOPICAL (08:27)
[2024-03-15] MEDS: Senna/Docusate Sodium 1 Tablet 2 TABLET PO ×2 (08:27→20:27)
[2024-03-15 08:28] VITALS: PULSE 68
[2024-03-15] MEDS: Cholecalciferol (VIT D3) 25 MCG TABLET (1,000 UNITS) PO (08:28)
[2024-03-15] MEDS: Fluticasone 0.05% 1 SPRAY NASAL.SRY 2 SPRAY NASAL (08:28)
[2024-03-15] MEDS: Metoprolol Tartrate 50 MG Tablet PO ×2 (08:28→20:33)
[2024-03-15] MEDS: Loratadine 10 MG Tablet PO (08:28)
[2024-03-15] MEDS: Menthol/Lanolin/Calamine/Znox 113 GM Tube 1 APPLIC TOPICAL ×2 (08:28→20:34)
[2024-03-15] MEDS: Nystatin Powder 15gm Bottle 1 APPLIC TOPICAL ×2 (08:28→20:26)
[2024-03-15] MEDS: Polyethylene Glycol 3350 17 GM PACKET PO (08:28)
[2024-03-15] MEDS: Furosemide 20 MG Tablet PO (08:29)
[2024-03-15] MEDS: Ensure Plus High Protein 120 ML LIQUID PO ×2 (08:32→16:32)
--- NOTE | 2024-03-15 09:21 | RAD_ITS ---
STUDY: X-RAY - LUMBAR SPINE REASON FOR EXAM: Male, 78 years old. L4-5 stenosis -- Please do upright AP lateral, may stand w walke TECHNIQUE: 2 view(s) of the lumbar spine were obtained. COMPARISON: Comparison is made with prior study dated March 12, 2024. FINDINGS: Normal lumbar lordosis. There is no substantial scoliosis. There is a normal alignment of the vertebrae. There is multilevel endplate spondylosis of the lumbar vertebrae. There is multi-level degenerative disc disease with multi-level disc space narrowing. Stable almost complete collapse of the L4 vertebrae with the possible retropulsion of the fracture fragment. Facet joint osteoarthritis and hypertrophy. Prior fusion of the lower thoracic spine. Prior left total hip replacement. There is atherosclerotic calcification of the abdominal aorta without a demonstrated aneurysm. RAD/Lumbar Spine 2 or 3 Views IMPRESSION: Degenerative changes of the spine, as detailed above. Almost complete collapse of the L4 vertebrae. Facet joint osteoarthritis and hypertrophy. Electronically Signed: Benjie Lieberman MD at 14:58 EDT ,
--- NOTE | 2024-03-15 09:23 | CT_ITS ---
EXAM: CT LUMBAR SPINE WITHOUT INTRAVENOUS CONTRAST CLINICAL INDICATION: L4 chronic compression fracture, L4-5 stenosis TECHNIQUE: Helically acquired images were obtained of the lumbar spine without intravenous contrast. 2D reformats were reviewed. This CT exam was performed using one or more of the following dose reduction techniques: automated exposure control, adjustment of the mA and/or kV according to patient size, and/or use of iterative reconstruction technique. COMPARISON: MRI lumbar spine 03/14/2024, lumbar radiographs from today FINDINGS: VERTEBRAE: Multilevel spinal stenosis related to vertebral body hypertrophy and facet arthropathy most marked at the L4-5 level. Prominent vertebral body osteophytosis and multilevel facet arthropathy. Surgical fixation of T10 and T11 vertebral bodies again seen. Chronic compression fractures of the T11 and L4 vertebral bodies again noted. No evidence of acute fracture. No traumatic subluxation. No discrete lytic or blastic abnormality. DISCS/SPINAL CANAL/NEURAL FORAMINA: Normal. No critical stenosis. No paraspinal mass or hematoma. VASCULATURE: Visualized abdominal aorta is not dilated. LYMPH NODES: Normal. No retroperitoneal adenopathy. KIDNEYS AND URETERS: 3 mm left renal stone. CT/Spine Lumbar without Contrast IMPRESSION: Chronic fractures of T11 and L4 vertebral bodies as previously noted. Multilevel spinal stenoses. Electronically Signed: Miguel Orozco MD at 11:19 EDT ,
--- NOTE | 2024-03-15 09:31 | CON.PCM.OR_ITS ---
HPI Consult Data Date of Consult: 03/15/24 HPI Narrative HPI Narrative: MEENAKSHI NI, is a 78 M who presents with worsening ability to walk. Patient was admitted over the weekend and I was consulted for acute on chronic back pain. I saw him this morning in room 320. 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 He did not have any balance issues over the years. He however had a fracture about 30 years ago in his lower back for which she has always had on and off back pain over the decades. He then found that he had severe difficulty walking and over the years he would always squat down while walking distances to be able to walk longer. He then became reliant on a walker at least for the last 2 to 3 years. Over the last few months he has only been able to walk around the house and may be up to the car outside. He worsens significantly that he almost was unable to walk over the last 1 to 2 weeks which led to his admission to the hospital over the last few days. He reports low back pain that radiates towards left worse than right buttock region. He has severe numbness in the left leg and foot compared to the right, which worsens when he stands and walks. He has A-fib and is on Coumadin. He denies any bowel bladder incontinence however he has been placed on a condom catheter for convenience since this hospitalization. He denies any numbness in the perianal region. He does feel constipated from the medications. [facility] Medical History (Updated 03/15/24 @ 09:[address] Pasquale Blair MD) Ankle fracture, left Atherosclerotic heart disease of [place] coronary artery without angina pectoris Atrial fibrillation Cancer Closed fracture of left hip Closed left humeral fracture Closed wedge compression fracture of T11 vertebra CPAP (continuous positive airway pressure) dependence Debility Essential hypertension Fall Former tobacco use Fracture of ninth thoracic vertebra (12/27/18) History of Clostridium difficile infection (01/09/19) History of subdural hematoma (post traumatic) (12/27/18) Hyperlipidemia Kidney stones residential (current) use of anticoagulants Longstanding persistent atrial fibrillation Onycholysis Sepsis Sleep apnea Traumatic hemothorax (12/30/18) Venous insufficiency (chronic) (peripheral) Home Medications potassium chloride 20 mEq tablet,extended release 20 meq PO DAILY supplement 12/03/18 [History Last Taken 03/11/24] cetirizine 10 mg capsule 10 mg PO DAILY Allergy 12/27/18 [History Last Taken 03/11/24] metoprolol tartrate 50 mg tablet 50 mg PO BID bp 03/15/19 [History Last Taken 03/11/24] cholecalciferol (vitamin D3) 1,250 mcg (50,000 unit) capsule 1,000 unit PO DAILY supplement 10/29/20 [History Last Taken 03/11/24] citalopram 10 mg tablet 10 mg PO QHS depression 12/01/22 [History Last Taken 03/11/24] terazosin 10 mg capsule 10 mg PO QPM BPH 12/01/22 [History Last Taken 03/11/24] enzalutamide 40 mg tablet (Xtandi) 160 mg (4 x 40 mg) PO QPM #0 tabs 12/16/22 [Rx Last Taken 07/24/23] fluticasone propionate 50 mcg/actuation nasal spray,suspension 2 spray NASAL DAILY #0 grams 12/16/22 [Rx Last Taken 03/11/24] lidocaine 5 % topical patch 1 patch topical DAILY 30 days #30 ea 12/16/22 [Rx Last Taken Unknown] acetaminophen 650 mg tablet,extended release (8 Hour Pain Reliever) 650 mg PO Q8H PRN pain 03/12/24 [History Last Taken 03/12/24] atorvastatin 80 mg tablet 80 mg PO DAILY 03/12/24 [History Last Taken 03/11/24] furosemide 20 mg tablet 20 mg PO DAILY 03/12/24 [History Last Taken 03/11/24] oxycodone 5 mg tablet 5 mg PO Q8H PRN pain 3 days #10 tabs 03/12/24 [Rx Last Taken Unknown] sennosides 8.6 mg-docusate sodium 50 mg tablet (Senna with Docusate Sodium) 2 tab-cap (2 x 8.6-50 mg) PO BID PRN constipation #30 tabs 03/12/24 [Rx Last Taken Unknown] warfarin 5 mg tablet 7.5 mg PO DAILY BLOOD THINNER 03/12/24 [History Last Taken 03/11/24] Allergy/AdvReac Type Severity Reaction Status Date / Time amiodarone AdvReac Intermediate It did not Verified 03/12/24 09:36 work, also bad dreams and neuropathy Family History Father , Age 57 Myocardial infarction CAD (coronary artery disease) ETOH abuse Mother , Age 47, of bone cancer Bone cancer Brother , age 45, of AIDS AIDS (acquired immune deficiency syndrome) Surgical History (Updated 03/12/24 @ 13:29 by Niyah Esposito) H/O cervical spine surgery (01/2020) H/O coronary artery bypass surgery (11/26/98) History of cholecystectomy History of left heart catheterization (11/26/98) History of left hip hemiarthroplasty History of thoracic spinal fusion (12/30/18) Social History household members: none Smoking Status: Former smoker alcohol intake: current details: once a week substance use type: does not use Vital Signs Vital Signs Vital Signs: 03/14/24 10:40 03/14/24 14:00 03/14/24 15:20 Temperature 98.3 F Temperature Source Oral Pulse Rate 80 72 Pulse Strength Normal (2+) Respiratory Rate 16 18 Respiratory Effort Respiratory Depth Respiratory Pattern Blood Pressure 126/74 H 148/101 H Blood Pressure Mean 91 116 Blood Pressure Source Monitor Monitor Blood Pressure Position Sitting Supine Blood Pressure Location Right Arm Right Arm Pulse Ox 94 96 Oxygen Delivery Method Room Air Room Air 03/14/24 15:30 03/14/24 15:40 03/14/24 15:49 Temperature Temperature Source Pulse Rate 70 77 76 Pulse Strength Respiratory Rate 16 18 16 Respiratory Effort Respiratory Depth Respiratory Pattern Blood Pressure 170/77 H 182/80 H 161/79 H Blood Pressure Mean 108 114 106 Blood Pressure Source Monitor Monitor Monitor Blood Pressure Position Supine Supine Supine Blood Pressure Location Right Arm Right Arm Right Arm Pulse Ox 95 94 95 Oxygen Delivery Method Room Air Room Air Room Air 03/14/24 21:00 03/14/24 22:00 03/14/24 23:06 Temperature 98.2 F Temperature Source Oral Pulse Rate 67 67 Pulse Strength Normal (2+) Respiratory Rate 15 Respiratory Effort Respiratory Depth Respiratory Pattern Blood Pressure 163/73 H 163/73 H Blood Pressure Mean 103 Blood Pressure Source Monitor Blood Pressure Position Sitting Blood Pressure Location Right Arm Pulse Ox 94 Oxygen Delivery Method Room Air 03/14/24 20:00 03/15/24 01:34 03/15/24 04:00 Temperature 98.3 F Temperature Source Oral Pulse Rate 64 Pulse Strength Respiratory Rate 15 15 Respiratory Effort Normal Non-Labored Normal Non-Labored Respiratory Depth Normal Normal Respiratory Pattern Normal Normal Blood Pressure 141/67 H Blood Pressure Mean 91 Blood Pressure Source Blood Pressure Position Blood Pressure Location Pulse Ox 15 94 Oxygen Delivery Method Room Air Room Air Room Air 03/15/24 08:28 03/15/24 08:35 03/15/24 08:54 Temperature Temperature Source Pulse Rate 68 Pulse Strength Normal (2+) Respiratory Rate Respiratory Effort Normal Non-Labored Respiratory Depth Normal Respiratory Pattern Normal Blood Pressure Blood Pressure Mean Blood Pressure Source Blood Pressure Position Blood Pressure Location Pulse Ox Oxygen Delivery Method Room Air 03/15/24 08:20 Temperature 98.2 F Temperature Source Temporal Pulse Rate 68 Pulse Strength Respiratory Rate 18 Respiratory Effort Respiratory Depth Respiratory Pattern Blood Pressure 131/75 H Blood Pressure Mean 93 Blood Pressure Source Monitor Blood Pressure Position Semi-Fowlers Blood Pressure Location Right Arm Pulse Ox 95 Oxygen Delivery Method Room Air Weight Weight: 248 lb 11.185 oz Body Mass Index (BMI) 33.7 Physical Exam Narrative Examination the back shows midline paraspinal tenderness in lower lumbar spine. Lidocaine patch noticed. Neurologic evaluation of lower extremity shows grade 4 - ankle dorsiflexion on the left side, grade 3 EHL, all other muscle groups are 4+ in both lower extremities. Range of motion of the left hip is limited at baseline. Gait was not tested. Patient did walk with PT yesterday with walker. Medical Records Data Medical Nutrition Assessment Dietitian: Malnutrition Criteria Met Start: 03/13/24 11:08 Freq: Status: Active Protocol: Document 03/13/24 11:08 (Rec: 03/13/24 11:08 [id number]) Nutrition Malnutrition Evidence of Malnutrition Exists Yes Malnutrition (severe): Acute Illness/Injury Evidenced By Suboptimal Energy Intake ( Severe),Weight Loss (Severe) Clinical Problem Acute Disease or Injury Related Malnutrition Etiology severe acute malnutrition related to inadequate energy intake d/t debility, pain Signs/Symptoms as evidenced by unintentional 5% wt loss x 2 weeks, estimated PO intake meeting < 50% of estimated energy needs x 1 week Status Active Problem Recommendation Dietitian Recommendations/Changes regular diet; ok to continue ensure plus high protein TID as ordered until adequate PO intake/appetite is fully established Lab / Micro Data 03/15/24 06:53 03/15/24 06:53 Labs: Laboratory Results - last 24 hr 03/15/24 06:53: WBC 5.8, RBC 3.82 L, Hgb 11.5 L, Hct 34.1 L, MCV 89.3, MCH 30.1, MCHC 33.7, RDW Std Deviation 42.2, RDW Coeff of Dick 13.1, Plt Count 104 L, MPV 8.9, Immature Gran % (Auto) 0.200, Neut % (Auto) 65.3, Lymph % (Auto) 23.4, Rock % (Auto) 7.8, Eos % (Auto) 3.1, Baso % (Auto) 0.2, Absolute Neuts (auto) 3.8, Absolute Lymphs (auto) 1.36, Nucleated RBC % 0, Sodium 140, Potassium 4.0, Chloride 106, Carbon Dioxide 32.0, Anion Gap 2 L, BUN 14, Creatinine 0.56 L, E stim Creat Clear Calc 101.87, Est GFR (MDRD) Af Amer 183, Est GFR (MDRD) Non-Af 151, BUN/Creatinine Ratio 25.1 H, Glucose 109 H, Calcium 8.7 Imaging Radiology Impression Lumbar Spine MRI 03/14/24 10:43 IMPRESSION: 1. Chronic fractures of the T11 and L4 vertebral bodies. 2. Moderate L2-3 and severe L4-5 spinal stenosis as described above. 3. Multilevel neural foraminal narrowing. Electronically Signed: Miguel Orozco MD at 16:42 EDT , Assessment & Plan Assessment/Plan (1) Compression fracture of L4 vertebra: QUALIFIERS: Encounter type: sequela Qualified Code(s): S32.040S - Wedge compression fracture of fourth lumbar vertebra, sequela (2) Spinal stenosis of lumbar region with neurogenic claudication: PLAN: Plan I reviewed patient's recumbent x-rays done in the ER 3 days ago, MRI lumbar spine done yesterday. These show chronic L4 compression wedge deformity. No obvious listhesis noticed. MRI shows severe critical L4-5 stenosis central as well as foraminal, severe facet hypertrophy. Screening images of cervical thoracic spine show no obvious cord compression. I explained to him the imaging findings in detail. Patient has severe L4-5 stenosis below his wedge compression deformity of L4. This is caused him severe worsening neurogenic claudication and he is progressively finding himself unable to walk distances. His most recent episode which led to this admission has made him severely dependent on others. I explained to him treatment options which include continued nonoperative treat measures versus surgery. Patient has had progressive loss of function with limited ambulation and periods of time where he would not be able to walk. I recommended surgery to help halt the progression of his functional decline. Surgical options were discussed. These could be decompression versus decompression with fusion. I would like him to obtain an upright x-ray AP and lateral along with a CT scan of the lumbar spine to evaluate for instability and extent of facet hypertrophy for surgical planning. I explained to him the timing of surgery would depend on multiple factors including his ability to stop Coumadin ahead of time. If he is able to be cleared PT for discharge to home by physical therapy, it would be ideal to medically optimize him for surgery in the next few weeks. If he is not able to clear PT and has to be discharged to rehab, I would prefer doing the surgery during this admission to minimize transfers. I will reach out to physical therapy, hospitalist regarding plan for discharge and stopping Coumadin and cardiac optimization for surgery. I will follow-up with him once the CT and x- rays are performed today. Charges/Coding Visit Charges Inpatient E&M: 77888 Init Hosp L3
--- NOTE | 2024-03-15 10:57 | PCM.DC ---
Discharge Instructions Diet Discharge Diet: Low fat / Low cholesterol Activity Discharge Activity: Return to Normal Activity Dressing / Incision Call your doctor if you observe: Fever of 101 or Higher, Shortness of breath, Dizziness, Fainting spells, Swelling in the ankles, Chest pain and Increased palpitations (irregular heartbeat) Follow Up Care Test Results: Test results from this visit will be discussed in further detail at your follow-up appointment, if applicable. Discharge Plan Admission Admit Date/Time: 03/12/24 12:13 Attending Provider: Koby Pascal Primary Care Provider: James Pisano Chi Consulting Providers: Estiven Mcmullen; Pasquale Blair; Clark Johnson Instructions Patient Instructions: Compression Fx, ED Back Pain (Acute or Chronic) Discharge Orders/Prescriptions Prescriptions: New oxycodone 5 mg tablet 5 mg PO Q8H PRN (Reason: pain) 3 Days Qty: 10 0RF sennosides-docusate sodium [Senna with Docusate Sodium] 8.6-50 mg tablet 2 tab-cap PO BID PRN (Reason: constipation) Qty: 30 0RF Continued potassium chloride 20 mEq tablet extended release 20 meq PO DAILY cholecalciferol (vitamin D3) 1,250 mcg (50,000 unit) capsule 1,000 unit PO DAILY metoprolol tartrate 50 mg tablet 50 mg PO BID cetirizine 10 MG capsule 10 mg PO DAILY citalopram 10 mg tablet 10 mg PO QHS terazosin 10 mg capsule 10 mg PO QPM lidocaine 5 % Adhesive Patch,Medicated 1 patch topical DAILY 30 Days Qty: 30 0RF Protocol: *Topical Application Instructions APPLICATION INSTRUCTIONS: chronic back pain fluticasone propionate 50 mcg/actuation [place],Suspension 2 spray NASAL DAILY Qty: 0 0RF Xtandi 40 mg Tablet 160 mg PO QPM Qty: 0 0RF atorvastatin 80 mg tablet 80 mg PO DAILY acetaminophen [8 Hour Pain Reliever] 650 mg tablet extended release 650 mg PO Q8H PRN (Reason: pain) furosemide 20 mg tablet 20 mg PO DAILY warfarin 5 mg tablet 7.5 mg PO DAILY Protocol: Dose Management Condition: Thursday Dose/Route: 7.5 mg Instruction: 1.5 x 5 mg tablets Condition: Thursday Dose/Route: 7.5 mg Instruction: 1.5 x 5 mg tablets Condition: Thursday Dose/Route: 7.5 mg Instruction: 1.5 x 5 mg tablets Condition: Thursday Dose/Route: 7.5 mg Instruction: 1.5 x 5 mg tablets Condition: Dose/Route: 7.5 mg Instruction: 1.5 x 5 mg tablets Condition: Thursday Dose/Route: 7.5 mg Instruction: 1.5 x 5 mg tablets Condition: Thursday Dose/Route: 7.5 mg Instruction: 1.5 x 5 mg tablets Protocol Text: Adjustment Start Date: Thursday03/08/24 INR Value: 3.0 INR Date: 03/08/24 Recheck Date: 04/05/24 Referrals / Follow Up: Clark Johnson MD [Med Staff - Active Staff] - Keep [facility] appointment Pasquale Blair MD [Med Staff - Active Staff] - Within 2 Weeks James Pisano Chi, MD [Primary Care Provider] - Within 1 Week Disposition Disposition (needs filled in before D/C Order can be placed): Home, Self Care
--- NOTE | 2024-03-15 11:45 | CASEMGMT ---
MARIAJOSE PITT noted pt with dc in, reviewed ortho's note. MARIAJOSE PITT into pt room, pt sitting up in chair stating he worked with OT and is awaiting PT. Pt reports he lives alone and has a friend that comes over 5-6 hours per week and does pt laundry, cleaning, grocery shopping and bathing set up. Pt is able to bathe and dress self indep. Pt friend also provides transportation. Pt has a hospital bed, CPAP, compression pumps and wraps, shower chair, walker, cane, raised toilet seat. Pt has had [facility] in the past for [facility] and has been to [facility], [facility], [facility], a facility in [facility] as well as another one he cannot recall. Pt feels he may be able to go home but will not have 24 hour care. TC to therapy to request [employer] to see pt today to determine if pt can return home alone as pt board states pt is a 2 assist. MARIAJOSE PITT to follow.
--- NOTE | 2024-03-15 14:26 | PCM.DC.SUM ---
Providers Date of Admission: 03/12/24 Primary Care Physician: Dr. James Pisano MD Consultations 03/12/24 13:18 Consult: Pain Management Routine Consulting Provider: Clark Johnson Reason for Consult: known to you, acute on chronic back pain w/ debility EMERGENT Consult: No Notified: Yes Date Notified: 03/14/24 Time Notified: 08:52 Method of Notification: Answering Service 03/13/24 11:15 Consult: Orthopedics Routine Consulting Provider: Pasquale Blair Reason for Consult: acute on chronic LBP, chronic T4 compress fx EMERGENT Consult: No Notified: Yes Date Notified: 03/14/24 Time Notified: 08:32 Method of Notification: Text Reason For Visit: ACUTE ON CHRONIC BACK PAIN, INABILITY TO AMBULATE Diagnosis Discharge Diagnosis (1) Compression fracture of L4 vertebra: Status: Chronic Code(s): S32.040A - Wedge compression fracture of fourth lumbar vertebra, initial encounter for closed fracture Qualifiers: Encounter type: sequela Qualified Code(s): S32.040S - Wedge compression fracture of fourth lumbar vertebra, sequela (2) Spinal stenosis of lumbar region with neurogenic claudication: Status: Acute Code(s): M48.062 - Spinal stenosis, lumbar region with neurogenic claudication Medications at Discharge Home Medications potassium chloride 20 mEq tablet,extended release 20 meq PO DAILY supplement 12/03/18 cetirizine 10 mg capsule 10 mg PO DAILY Allergy 12/27/18 metoprolol tartrate 50 mg tablet 50 mg PO BID bp 03/15/19 cholecalciferol (vitamin D3) 1,250 mcg (50,000 unit) capsule 1,000 unit PO DAILY supplement 10/29/20 citalopram 10 mg tablet 10 mg PO QHS depression 12/01/22 terazosin 10 mg capsule 10 mg PO QPM BPH 12/01/22 enzalutamide 40 mg tablet (Xtandi) 160 mg (4 x 40 mg) PO QPM #0 tabs 12/16/22 fluticasone propionate 50 mcg/actuation nasal spray,suspension 2 spray NASAL DAILY #0 grams 12/16/22 lidocaine 5 % topical patch 1 patch topical DAILY 30 days #30 ea 12/16/22 acetaminophen 650 mg tablet,extended release (8 Hour Pain Reliever) 650 mg PO Q8H PRN pain 03/12/24 atorvastatin 80 mg tablet 80 mg PO DAILY 03/12/24 furosemide 20 mg tablet 20 mg PO DAILY 03/12/24 oxycodone 5 mg tablet 5 mg PO Q8H PRN pain 3 days #10 tabs 03/12/24 sennosides 8.6 mg-docusate sodium 50 mg tablet (Senna with Docusate Sodium) 2 tab-cap (2 x 8.6-50 mg) PO BID PRN constipation #30 tabs 03/12/24 warfarin 5 mg tablet 7.5 mg PO DAILY BLOOD THINNER 03/12/24 ondansetron 4 mg disintegrating tablet 4 mg PO Q8H PRN nausea and vomiting #10 tabs 03/15/24 Hospital Course Operations None Procedures None Summary of Care Provided Minutes Spent on Discharge: 35 Hospital Course: Per HPI: MEENAKSHI NI, is a 78 M who presented to [facility] ED on 03/12/2024 with worsening chronic low back pain and inability to ambulate. Patient has known history of chronic low back pain with L-spine compression fracture. Began to have worsening pain over the past 1 to 2 weeks. Denied any acute falls or acute reasons for the worsening pain. Patient previously followed with Dr. Johnson with pain management and had an injection in the low back about 2 years ago. Patient lives at home alone and generally has done fairly well on his own from a functional status standpoint. He does have family and friends in the area that help him with some tasks around the house. On arrival to the ED patient was given a dose of p.o. oxycodone and had moderate improvement in his back pain. Lumbar spine x-rays showed a significant compression fracture at L4 but this appeared stable compared to prior x-rays from last year. Initial plan was for patient to go home with outpatient follow-up appointment with Dr. Johnson already scheduled for Thursday, but when patient tried to stand at bedside and pivot to wheelchair he was unable to do this secondary to pain. Hospitalist was then contacted for admission. I saw patient at the bedside in the ED. Patient was sitting up comfortably in bed, conversing normally, in no acute distress. He was very kind and apologizing for needing to come into the hospital. He stated his back pain at rest currently is pretty minimal. Patient is somewhat frustrated that his back pain seems to worsen over the past 1 to 2 weeks without any trigger for the worsening back pain. He denies any fevers or chills. Denies any other new pain or discomfort. He typically takes scheduled Tylenol and use lidocaine patch at home for pain, and uses oxycodone very sparingly. However, states that when he is needed admitted in the past the oxycodone and Dilaudid as needed regimen has been good for him. Does note that opiates cause significant constipation for him and was asking for a bowel regimen to be scheduled for him. He otherwise denied any acute concerns. Hospital Course: 1. Acute on chronic back pain with chronic L4 compression fracture and spinal stenosis with an inability to ambulate?78-year-old male who has issues with intermittent chronic back pain presented to the hospital with an inability to walk and increasing pain. With pain management and spine surgery were consulted, pain management felt that they could see him on Thursday for an appointment and spine surgery requested an MRI to reevaluate his spine which did show significant spinal stenosis compared to the MRI in 2021. Spine felt that he would be best served with surgery and is planning to schedule his operation on 03/24/2024. In the meantime we will hold his Coumadin, at the request of surgery, for his paroxysmal A-fib in preparation for that surgery, as the risks are minimal in relation to the benefit of pain relief no need to bridge at this time. I discussed with him the plan for discharge today he expressed understanding of the risk benefits of going home and would like to go home today. He is feeling better with his pain management and he was given a narcotic prescription by the ED physician, I did give him a prescription for Zofran as he says these medications do cause nausea for him. 2. Obesity, paroxysmal A-fib, coronary artery disease status post CABG, hypertension, hyperlipidemia, BPH, history of prostate cancer, depression are all chronic medical conditions which complicate his care. His home medications were continued where appropriate. Physical Exam Narrative General: Alert, Oriented x3, Cooperative, No apparent distress HEENT: Atraumatic, PERRLA, EOMI, Normocephalic Oral: Moist Mucosa Neck: Supple, No JVD Lungs: Diminished, Normal air movement, No rhonchi, No wheeze, No rales Cardiovascular: Regular rate, Regular Rhythm, Normal S1, Normal S2, No murmurs Abdomen: Soft, Non Tender, Non-Distended, No Hepato-splenomegaly Extremities: No edema, Capillary Refill Less than 3 Seconds Skin: No rashes, No breakdown Musculoskeletal: No Tenderness to Palpation of Joints or Extremities Neurological: No focal neurological deficits, Motor Exam 5/5 strength throughout, Sensory exam intact to light touch and pain Psych/Mental Status: Normal Affect, Appropriate Medical Records Data Medical Nutrition Assessment Dietitian: Malnutrition Criteria Met Start: 03/13/24 11:08 Freq: Status: Active Protocol: Document 03/13/24 11:08 (Rec: 03/13/24 11:08 [id number]) Nutrition Malnutrition Evidence of Malnutrition Exists Yes Malnutrition (severe): Acute Illness/Injury Evidenced By Suboptimal Energy Intake ( Severe),Weight Loss (Severe) Clinical Problem Acute Disease or Injury Related Malnutrition Etiology severe acute malnutrition related to inadequate energy intake d/t debility, pain Signs/Symptoms as evidenced by unintentional 5% wt loss x 2 weeks, estimated PO intake meeting < 50% of estimated energy needs x 1 week Status Active Problem Recommendation Dietitian Recommendations/Changes regular diet; ok to continue ensure plus high protein TID as ordered until adequate PO intake/appetite is fully established Weight / BMI Weight Weight: 248 lb 11.185 oz Body Mass Index (BMI) 33.7 ABG / Lab / Microbiology Data 03/15/24 06:53 03/15/24 06:53 Laboratory: Laboratory Results - last 24 hr 03/15/24 06:53: WBC 5.8, RBC 3.82 L, Hgb 11.5 L, Hct 34.1 L, MCV 89.3, MCH 30.1, MCHC 33.7, RDW Std Deviation 42.2, RDW Coeff of Dick 13.1, Plt Count 104 L, MPV 8.9, Immature Gran % (Auto) 0.200, Neut % (Auto) 65.3, Lymph % (Auto) 23.4, [place] % (Auto) 7.8, Eos % (Auto) 3.1, Baso % (Auto) 0.2, Absolute Neuts (auto) 3.8, Absolute Lymphs (auto) 1.36, Nucleated RBC % 0, Sodium 140, Potassium 4.0, Chloride 106, Carbon Dioxide 32.0, Anion Gap 2 L, BUN 14, Creatinine 0.56 L, Estim Creat Clear Calc 101.87, Est GFR (MDRD) Af Amer 183, Est GFR (MDRD) Non-Af 151, BUN/Creatinine Ratio 25.1 H, Glucose 109 H, Calcium 8.7 Radiography Diagnostic Testing: Radiology Impression Lumbar Spine MRI 03/14/24 10:43 IMPRESSION: 1. Chronic fractures of the T11 and L4 vertebral bodies. 2. Moderate L2-3 and severe L4-5 spinal stenosis as described above. 3. Multilevel neural foraminal narrowing. Electronically Signed: Miguel Orozco MD at 16:42 EDT , Lumbar Spine CT 03/15/24 09:23 IMPRESSION: Chronic fractures of T11 and L4 vertebral bodies as previously noted. Multilevel spinal stenoses. Electronically Signed: Miguel Orozco MD at 11:19 EDT , D/C Instructions Discharge Diet: Low fat / Low cholesterol Call your doctor if you observe: Fever of 101 or Higher, Shortness of breath, Dizziness, Fainting spells, Swelling in the ankles, Chest pain and Increased palpitations (irregular heartbeat) Meaningful Use Info Meaningful Use Meaningful Use Diagnoses (Choose all that apply): None applicable Ischemic Stroke Statin Dosing Therapy Reference: STATIN DOSE THERAPY REFERENCE: * Patients > 75 years receive moderate or high dose statin therapy. * Patients 75 years or YOUNGER should receive HIGH intensity statin dose unless contraindicated. You will be required to document reason for non-treatment if statin daily dose does not meet guidelines. HIGH DOSE STATIN THERAPY DAILY Atorvastatin > than or = to 40 mg Rosuvastatin > than or = to 20 mg Amlodipine + Atorvastatin > than or = to 2.5/40 mg Ezetimibe + Simvastatin 10/80 mg Simvastatin 80mg Discharge Plan Admission Admit Date/Time: 03/12/24 12:13 Attending Provider: Koby Pascal Primary Care Provider: James Pisano Chi Consulting Providers: Estiven Mcmullen; Pasquale Blair; Clark Johnson Instructions Patient Instructions: Compression Fx, ED Back Pain (Acute or Chronic) Discharge Orders/Prescriptions Prescriptions: New oxycodone 5 mg tablet 5 mg PO Q8H PRN (Reason: pain) 3 Days Qty: 10 0RF sennosides-docusate sodium [Senna with Docusate Sodium] 8.6-50 mg tablet 2 tab-cap PO BID PRN (Reason: constipation) Qty: 30 0RF ondansetron 4 mg tablet,disintegrating 4 mg PO Q8H PRN (Reason: nausea and vomiting) Qty: 10 0RF Continued potassium chloride 20 mEq tablet extended release 20 meq PO DAILY cholecalciferol (vitamin D3) 1,250 mcg (50,000 unit) capsule 1,000 unit PO DAILY metoprolol tartrate 50 mg tablet 50 mg PO BID cetirizine 10 MG capsule 10 mg PO DAILY citalopram 10 mg tablet 10 mg PO QHS terazosin 10 mg capsule 10 mg PO QPM lidocaine 5 % Adhesive Patch,Medicated 1 patch topical DAILY 30 Days Qty: 30 0RF Protocol: *Topical Application Instructions APPLICATION INSTRUCTIONS: chronic back pain fluticasone propionate 50 mcg/actuation [place],Suspension 2 spray NASAL DAILY Qty: 0 0RF Xtandi 40 mg Tablet 160 mg PO QPM Qty: 0 0RF atorvastatin 80 mg tablet 80 mg PO DAILY acetaminophen [8 Hour Pain Reliever] 650 mg tablet extended release 650 mg PO Q8H PRN (Reason: pain) furosemide 20 mg tablet 20 mg PO DAILY Held warfarin 5 mg tablet 7.5 mg PO DAILY Hold Instructions: Resume on 03/25/24. Protocol: Dose Management Condition: Thursday Dose/Route: 7.5 mg Instruction: 1.5 x 5 mg tablets Condition: Thursday Dose/Route: 7.5 mg Instruction: 1.5 x 5 mg tablets Condition: Thursday Dose/Route: 7.5 mg Instruction: 1.5 x 5 mg tablets Condition: Thursday Dose/Route: 7.5 mg Instruction: 1.5 x 5 mg tablets Condition: Dose/Route: 7.5 mg Instruction: 1.5 x 5 mg tablets Condition: Thursday Dose/Route: 7.5 mg Instruction: 1.5 x 5 mg tablets Condition: Thursday Dose/Route: 7.5 mg Instruction: 1.5 x 5 mg tablets Protocol Text: Adjustment Start Date: Thursday03/08/24 INR Value: 3.0 INR Date: 03/08/24 Recheck Date: 04/05/24 Referrals / Follow Up: Clark Johnson MD [Med Staff - Active Staff] - Keep [facility] appointment Pasquale Blair MD [Med Staff - Active Staff] - 03/24/24 1:00 pm James Pisano Chi, MD [Primary Care Provider] - 03/17/24 1:20 pm Disposition Disposition (needs filled in before D/C Order can be placed): Home, Self Care Charges/Coding Visit Charges Inpatient E&M: 56327 Disch Hosp >30min
--- NOTE | 2024-03-15 14:44 | PHA.DC_ITS ---
Pharmacy [facility] Pharmacy Service has performed discharge medication reconciliation and counseling for this patient. 1. ONDANSETRON 4MG PO Q8H PRN NAUSEA/VOMITING 2. OXYCODONE 5 MG PO Q8H PRN PAIN 3. SENNA/DOCUSATE 2T PO BID PRN CONSTIPATION The patient's discharge medication list was reviewed for discrepancies and discrepancies were resolved. The patient was counseled on the following discharge medications and changes in medications for homegoing were reviewed. The Reason for Use, instructions for use, and potential side effects were revi ewed for all new medications. The patient's questions regarding all of their medications were answered. The patient was able to verbally demonstrate an understanding of their discharge medications. Medications at Discharge Home Medications potassium chloride 20 mEq tablet,extended release 20 meq PO DAILY supplement 12/03/18 cetirizine 10 mg capsule 10 mg PO DAILY Allergy 12/27/18 metoprolol tartrate 50 mg tablet 50 mg PO BID bp 03/15/19 cholecalciferol (vitamin D3) 1,250 mcg (50,000 unit) capsule 1,000 unit PO DAILY supplement 10/29/20 citalopram 10 mg tablet 10 mg PO QHS depression 12/01/22 terazosin 10 mg capsule 10 mg PO QPM BPH 12/01/22 enzalutamide 40 mg tablet (Xtandi) 160 mg (4 x 40 mg) PO QPM #0 tabs 12/16/22 fluticasone propionate 50 mcg/actuation nasal spray,suspension 2 spray NASAL DAILY #0 grams 12/16/22 lidocaine 5 % topical patch 1 patch topical DAILY 30 days #30 ea 12/16/22 acetaminophen 650 mg tablet,extended release (8 Hour Pain Reliever) 650 mg PO Q8H PRN pain 03/12/24 atorvastatin 80 mg tablet 80 mg PO DAILY 03/12/24 furosemide 20 mg tablet 20 mg PO DAILY 03/12/24 oxycodone 5 mg tablet 5 mg PO Q8H PRN pain 3 days #10 tabs 03/12/24 sennosides 8.6 mg-docusate sodium 50 mg tablet (Senna with Docusate Sodium) 2 tab-cap (2 x 8.6-50 mg) PO BID PRN constipation #30 tabs 03/12/24 warfarin 5 mg tablet 7.5 mg PO DAILY BLOOD THINNER 03/12/24 ondansetron 4 mg disintegrating tablet 4 mg PO Q8H PRN nausea and vomiting #10 tabs 03/15/24
[2024-03-15 15:10] VITALS: BP 130/71; PULSE 76; RESP 18; TEMP 36.8; O2SAT 96
--- NOTE | 2024-03-15 16:02 | CASEMGMT ---
spoke with [facility]OVER regarding pt therapy session. Patient does not feel safe returning home alone and is requesting to go to TCU. Updated hospitalist and discussed with Dr. Blair. Notified SW.
--- NOTE | 2024-03-15 16:10 | CASEMGMT ---
Social Work Referral made to TCU via email. Pt wants to go to TCU, if TCU can take pt a SNF list will not be needed. If TCU cannot take pt then a SNF list will be provided to pt for additional choices. TYSHAWN Powers
--- NOTE | 2024-03-15 17:08 | PCM.PN.HOSP ---
Subjective Subjective Doign well, no issue overnight. Pain is controlled Objective Data Objective Data Vital Signs: Vital Signs Temp Pulse Resp BP Pulse Ox O2 Del Method 98.2 F 76 18 130/71 H 96 Room Air 03/15/24 15:10 03/15/24 15:10 03/15/24 15:10 03/15/24 15:10 03/15/24 15:10 03/15/24 15:10 Oxygen Delivery Method Room Air Weight: 248 lb 11.185 oz Body Mass Index (BMI) 33.7 Intake & Output: Intake and Output for Last 24 Hours 03/14/24 03/15/24 03/16/24 03:59 03:59 03:59 Intake Total 1350 / 1350 300 / 300 Output Total 1950 / 1950 550 / 550 900 / 900 Balance -600 / -600 -250 / -250 -900 / -900 Medical Nutrition Assessment Dietitian: Malnutrition Criteria Met Start: 03/13/24 11:08 Freq: Status: Active Protocol: Document 03/13/24 11:08 (Rec: 03/13/24 11:08 [id number]) Nutrition Malnutrition Evidence of Malnutrition Exists Yes Malnutrition (severe): Acute Illness/Injury Evidenced By Suboptimal Energy Intake ( Severe),Weight Loss (Severe) Clinical Problem Acute Disease or Injury Related Malnutrition Etiology severe acute malnutrition related to inadequate energy intake d/t debility, pain Signs/Symptoms as evidenced by unintentional 5% wt loss x 2 weeks, estimated PO intake meeting < 50% of estimated energy needs x 1 week Status Active Problem Recommendation Dietitian Recommendations/Changes regular diet; ok to continue ensure plus high protein TID as ordered until adequate PO intake/appetite is fully established Lab / Micro Data 03/15/24 06:53 03/15/24 06:53 Labs: Laboratory Results - last 24 hr 03/15/24 06:53: WBC 5.8, RBC 3.82 L, Hgb 11.5 L, Hct 34.1 L, MCV 89.3, MCH 30.1, MCHC 33.7, RDW Std Deviation 42.2, RDW Coeff of Dick 13.1, Plt Count 104 L, MPV 8.9, Immature Gran % (Auto) 0.200, Neut % (Auto) 65.3, Lymph % (Auto) 23.4, [place] % (Auto) 7.8, Eos % (Auto) 3.1, Baso % (Auto) 0.2, Absolute Neuts (auto) 3.8, Absolute Lymphs (auto) 1.36, Nucleated RBC % 0, Sodium 140, Potassium 4.0, Chloride 106, Carbon Dioxide 32.0, Anion Gap 2 L, BUN 14, Creatinine 0.56 L, Estim Creat Clear Calc 101.87, Est GFR (MDRD) Af Amer 183, Est GFR (MDRD) Non-Af 151, BUN/Creatinine Ratio 25.1 H, Glucose 109 H, Calcium 8.7 Radiography Diagnostic Testing: Radiology Impression Lumbar Spine X-Ray 03/15/24 09:21 IMPRESSION: Degenerative changes of the spine, as detailed above. Almost complete collapse of the L4 vertebrae. Facet joint osteoarthritis and hypertrophy. Electronically Signed: Benjie Lieberman MD at 14:58 EDT , Lumbar Spine CT 03/15/24 09:23 IMPRESSION: Chronic fractures of T11 and L4 vertebral bodies as previously noted. Multilevel spinal stenoses. Electronically Signed: Miguel Orozco MD at 11:19 EDT , Physical Exam Narrative General: Alert, Oriented x3, Cooperative, No apparent distress HEENT: Atraumatic, PERRLA, EOMI, Normocephalic Oral: Moist Mucosa Neck: Supple, No JVD Lungs: Diminished, Normal air movement, No rhonchi, No wheeze, No rales Cardiovascular: Regular rate, Regular Rhythm, Normal S1, Normal S2, No murmurs Abdomen: Soft, Non Tender, Non-Distended, No Hepato-splenomegaly Extremities: No edema, Capillary Refill Less than 3 Seconds Skin: No rashes, No breakdown Musculoskeletal: No Tenderness to Palpation of Joints or Extremities Neurological: No focal neurological deficits, Motor Exam 5/5 strength throughout, Sensory exam intact to light touch and pain Psych/Mental Status: Normal Affect, Appropriate Assessment & Plan Assessment/Plan (1) Compression fracture of L4 vertebra: QUALIFIERS: Encounter type: sequela Qualified Code(s): S32.040S - Wedge compression fracture of fourth lumbar vertebra, sequela (2) Spinal stenosis of lumbar region with neurogenic claudication: PLAN: Plan Patient is a 78-year-old male who presented to [facility] ED on 03/12/2024 for with acute on chronic back pain and inability to ambulate. 1. Acute on chronic back pain with chronic L4 compression fracture, inability to ambulate Presented with 1 to 2 weeks of acutely worsening chronic back pain. No falls or trauma noted. Lumbar x-ray in ED showed known L4 compression fractures that appeared stable from previous. Unable to ambulate in the ED and lives alone at home. Suspect may only be mild chronic worsening of known back pain with fracture. Afebrile, hemodynamically stable, noninfectious appearing. He has history of prostate cancer, PSA < 0.02 on 02/19/2024, no concern for mets from prostate cancer. ? Pain management and orthopedics consulted. PT/OT/case management consulted. Continue treatment with scheduled Tylenol, lidocaine patch, oxycodone as needed and IV Dilaudid as needed for now. Scheduled senna and MiraLAX for bowel regimen. 03/14/2024: Plan for consult to pain management this afternoon and will obtain an MRI to help assist orthopedics evaluation when they are able to see him tomorrow. He did have a previous history of stenosis noted on MRI in 202103/15/2024: Plan was to discharge today however with physical therapy he was unable to climb stairs and he has stairs to get into his home we will try to evaluate for TCU however also discussed the case with orthospine and they may try to fit him in this week if possible and set up on 03/24/2024 as previously scheduled. In the meantime we will hold his Coumadin and check his INR in the morning if necessary may give vitamin K Chronic medical conditions: ? Obesity: BMI 38 on admit. Complicates hospital course, care and prognosis. ? Paroxysmal A-fib: Regular rate and rhythm in the ED. Continue home warfarin and Lopressor. ? CAD s/p remote CABG, hypertension, hyperlipidemia: Stable. Continue home warfarin, atorvastatin, Lasix, Lopressor. ? History of thoracic spinal fusion in 2018, cervical spine surgery in 2019, left hip fracture s/p left hip hemiarthroplasty in 2021 ? Allergies: Continue home cetirizine and Flonase. ? BPH with obstructive symptoms: Continue home terazosin. ? History of prostate cancer: Continue home Xtandi. ? Depression: Stable. Continue home citalopram. ? Former tobacco use: Encouraged continued cessation. DVT: SCDs Charges/Coding Visit Charges Inpatient E&M: 53395 Subs Hosp L2
[2024-03-15] MEDS: ENZALUTAMIDE 40 MG TABLET 160 MG PO (20:24)
[2024-03-15] MEDS: Doxazosin 4 MG Tablet 8 MG PO (20:25)
[2024-03-15] MEDS: Citalopram 10 MG Tablet PO (20:25)
[2024-03-15] MEDS: Atorvastatin Calcium 40 MG Tablet PO (20:26)
[2024-03-15 20:28] VITALS: BP 136/78; PULSE 78; RESP 18; TEMP 36.7; O2SAT 97
[2024-03-15 20:33] VITALS: BP 136/78; PULSE 78
[2024-03-16] MEDS: Acetaminophen 500 MG Tablet 1000 MG PO ×2 (05:09→14:11)
[2024-03-16 06:00] VITALS: BP 143/97; PULSE 65; RESP 18; TEMP 36.6; O2SAT 97
[2024-03-16 09:08] LABS: International Normalized Ratio 1.7
[2024-03-16] MEDS: Menthol/Lanolin/Calamine/Znox 113 GM Tube 1 APPLIC TOPICAL (09:27)
[2024-03-16] MEDS: Fluticasone 0.05% 1 SPRAY NASAL.SRY 2 SPRAY NASAL (09:27)
[2024-03-16] MEDS: Nystatin Powder 15gm Bottle 1 APPLIC TOPICAL (09:27)
[2024-03-16] MEDS: Lidocaine 5% Patch 1 PATCH TOPICAL (09:28)
[2024-03-16] MEDS: Polyethylene Glycol 3350 17 GM PACKET PO (09:29)
[2024-03-16] MEDS: Cholecalciferol (VIT D3) 25 MCG TABLET (1,000 UNITS) PO (09:29)
[2024-03-16] MEDS: Loratadine 10 MG Tablet PO (09:29)
[2024-03-16] MEDS: Ensure Plus High Protein 120 ML LIQUID PO ×2 (09:33→12:51)
[2024-03-16] MEDS: Furosemide 20 MG Tablet PO (09:33)
[2024-03-16 09:45] VITALS: BP 158/95; PULSE 78; RESP 16; TEMP 36.3; O2SAT 96
[2024-03-16 09:48] VITALS: BP 158/95; PULSE 78
[2024-03-16] MEDS: Metoprolol Tartrate 50 MG Tablet PO (09:48)
--- NOTE | 2024-03-16 10:20 | CASEMGMT ---
Social Work- TCU accepted pt; SW notified pt. Pt is agreeable to bringing Xtandi. Plan: TCU; pending precert JOHN Nicole
--- NOTE | 2024-03-16 11:48 | PCM.PN.HOSP ---
Subjective Subjective Doing well, pain is better controlled however he had difficulty ambulating up stairs yesterday so will likely need placement Objective Data Objective Data Vital Signs: Vital Signs Temp Pulse Resp BP Pulse Ox O2 Del Method 97.4 F L 78 16 158/95 H 96 Room Air 03/16/24 09:45 03/16/24 09:48 03/16/24 09:45 03/16/24 09:48 03/16/24 09:45 03/16/24 09:45 Oxygen Delivery Method Room Air Weight: 248 lb 11.185 oz Body Mass Index (BMI) 33.7 Intake & Output: Intake and Output for Last 24 Hours 03/15/24 03/16/24 03/17/24 03:59 03:59 03:59 Intake Total 300 / 300 Output Total 550 / 550 1200 / 1200 1300 / 1300 Balance -250 / -250 -1200 / -1200 -1300 / -1300 Medical Nutrition Assessment Dietitian: Malnutrition Criteria Met Start: 03/13/24 11:08 Freq: Status: Active Protocol: Document 03/13/24 11:08 (Rec: 03/13/24 11:08 [id number]) Nutrition Malnutrition Evidence of Malnutrition Exists Yes Malnutrition (severe): Acute Illness/Injury Evidenced By Suboptimal Energy Intake ( Severe),Weight Loss (Severe) Clinical Problem Acute Disease or Injury Related Malnutrition Etiology severe acute malnutrition related to inadequate energy intake d/t debility, pain Signs/Symptoms as evidenced by unintentional 5% wt loss x 2 weeks, estimated PO intake meeting < 50% of estimated energy needs x 1 week Status Active Problem Recommendation Dietitian Recommendations/Changes regular diet; ok to continue ensure plus high protein TID as ordered until adequate PO intake/appetite is fully established Lab / Micro Data 03/15/24 06:53 03/15/24 06:53 Labs: Laboratory Results - last 24 hr 03/16/24 06:50: PT 20.0 H, INR 1.7 Radiography Diagnostic Testing: Radiology Impression Lumbar Spine X-Ray 03/15/24 09:21 IMPRESSION: Degenerative changes of the spine, as detailed above. Almost complete collapse of the L4 vertebrae. Facet joint osteoarthritis and hypertrophy. Electronically Signed: Benjie Lieberman MD at 14:58 EDT , Physical Exam Narrative General: Alert, Oriented x3, Cooperative, No apparent distress HEENT: Atraumatic, PERRLA, EOMI, Normocephalic Oral: Moist Mucosa Neck: Supple, No JVD Lungs: Diminished, Normal air movement, No rhonchi, No wheeze, No rales Cardiovascular: Regular rate, Regular Rhythm, Normal S1, Normal S2, No murmurs Abdomen: Soft, Non Tender, Non-Distended, No Hepato-splenomegaly Extremities: No edema, Capillary Refill Less than 3 Seconds Skin: No rashes, No breakdown Musculoskeletal: No Tenderness to Palpation of Joints or Extremities Neurological: No focal neurological deficits, Motor Exam 5/5 strength throughout, Sensory exam intact to light touch and pain Psych/Mental Status: Normal Affect, Appropriate Assessment & Plan Assessment/Plan (1) Compression fracture of L4 vertebra: QUALIFIERS: Encounter type: sequela Qualified Code(s): S32.040S - Wedge compression fracture of fourth lumbar vertebra, sequela (2) Spinal stenosis of lumbar region with neurogenic claudication: PLAN: Plan Patient is a 78-year-old male who presented to [facility] ED on 03/12/2024 for with acute on chronic back pain and inability to ambulate. 1. Acute on chronic back pain with chronic L4 compression fracture, inability to ambulate Presented with 1 to 2 weeks of acutely worsening chronic back pain. No falls or trauma noted. Lumbar x-ray in ED showed known L4 compression fractures that appeared stable from previous. Unable to ambulate in the ED and lives alone at home. Suspect may only be mild chronic worsening of known back pain with fracture. Afebrile, hemodynamically stable, noninfectious appearing. He has history of prostate cancer, PSA < 0.02 on 02/19/2024, no concern for mets from prostate cancer. ? Pain management and orthopedics consulted. PT/OT/case management consulted. Continue treatment with scheduled Tylenol, lidocaine patch, oxycodone as needed and IV Dilaudid as needed for now. Scheduled senna and MiraLAX for bowel regimen. 03/14/2024: Plan for consult to pain management this afternoon and will obtain an MRI to help assist orthopedics evaluation when they are able to see him tomorrow. He did have a previous history of stenosis noted on MRI in 202103/15/2024: Plan was to discharge today however with physical therapy he was unable to climb stairs and he has stairs to get into his home we will try to evaluate for TCU however also discussed the case with orthospine and they may try to fit him in this week if possible and set up on 03/24/2024 as previously scheduled. In the meantime we will hold his Coumadin and check his INR in the morning if necessary may give vitamin K 03/16/2024: Will attempt to obtain surgery during this admission prior to discharge to SNF. INR today is 1.7. Will continue to hold Coumadin if INR still elevated tomorrow can proceed with vitamin K depending on when surgery will be Chronic medical conditions: ? Obesity: BMI 38 on admit. Complicates hospital course, care and prognosis. ? Paroxysmal A-fib: Regular rate and rhythm in the ED. Continue home warfarin and Lopressor. ? CAD s/p remote CABG, hypertension, hyperlipidemia: Stable. Continue home warfarin, atorvastatin, Lasix, Lopressor. ? History of thoracic spinal fusion in 2018, cervical spine surgery in 2019, left hip fracture s/p left hip hemiarthroplasty in 2021 ? Allergies: Continue home cetirizine and Flonase. ? BPH with obstructive symptoms: Continue home terazosin. ? History of prostate cancer: Continue home Xtandi. ? Depression: Stable. Continue home citalopram. ? Former tobacco use: Encouraged continued cessation. DVT: SCDs Charges/Coding Visit Charges Inpatient E&M: 90144 Subs Hosp L2
--- NOTE | 2024-03-16 12:29 | PCM.TXEXTCAR ---
Diet Diet Order/Speech Therapy: 03/13/24 10:59 Diet: Regular - General Is pt able to select menu?: Yes Routine Orders/Code Status Routine Lab Work: CBC, BMP and INR Code Status: Full Code Wound(s) left buttock: Wound Type: shearing Therapies Physical Therapy: Eval and Treat Occupational Therapy: Eval and Treat Problem/Diagnosis (1) Compression fracture of L4 vertebra: Status: Chronic Code(s): S32.040A - Wedge compression fracture of fourth lumbar vertebra, initial encounter for closed fracture (2) Spinal stenosis of lumbar region with neurogenic claudication: Status: Acute Code(s): M48.062 - Spinal stenosis, lumbar region with neurogenic claudication Plan Patient is a 78-year-old male who presented to [facility] ED on 03/12/2024 for with acute on chronic back pain and inability to ambulate. 1. Acute on chronic back pain with chronic L4 compression fracture, inability to ambulate Presented with 1 to 2 weeks of acutely worsening chronic back pain. No falls or trauma noted. Lumbar x-ray in ED showed known L4 compression fractures that appeared stable from previous. Unable to ambulate in the ED and lives alone at home. Suspect may only be mild chronic worsening of known back pain with fracture. Afebrile, hemodynamically stable, noninfectious appearing. He has history of prostate cancer, PSA < 0.02 on 02/19/2024, no concern for mets from prostate cancer. ? Pain management and orthopedics consulted. PT/OT/case management consulted. Continue treatment with scheduled Tylenol, lidocaine patch, oxycodone as needed and IV Dilaudid as needed for now. Scheduled senna and MiraLAX for bowel regimen. 03/14/2024: Plan for consult to pain management this afternoon and will obtain an MRI to help assist orthopedics evaluation when they are able to see him tomorrow. He did have a previous history of stenosis noted on MRI in 202103/15/2024: Plan was to discharge today however with physical therapy he was unable to climb stairs and he has stairs to get into his home we will try to evaluate for TCU however also discussed the case with orthospine and they may try to fit him in this week if possible and set up on 03/24/2024 as previously scheduled. In the meantime we will hold his Coumadin and check his INR in the morning if necessary may give vitamin K 03/16/2024: Will attempt to obtain surgery during this admission prior to discharge to SNF. INR today is 1.7. Will continue to hold Coumadin if INR still elevated tomorrow can proceed with vitamin K depending on when surgery will be Chronic medical conditions: ? Obesity: BMI 38 on admit. Complicates hospital course, care and prognosis. ? Paroxysmal A-fib: Regular rate and rhythm in the ED. Continue home warfarin and Lopressor. ? CAD s/p remote CABG, hypertension, hyperlipidemia: Stable. Continue home warfarin, atorvastatin, Lasix, Lopressor. ? History of thoracic spinal fusion in 2018, cervical spine surgery in 2019, left hip fracture s/p left hip hemiarthroplasty in 2021 ? Allergies: Continue home cetirizine and Flonase. ? BPH with obstructive symptoms: Continue home terazosin. ? History of prostate cancer: Continue home Xtandi. ? Depression: Stable. Continue home citalopram. ? Former tobacco use: Encouraged continued cessation. DVT: SCDs Allergies/Procedures Done in Hospital Allergies amiodarone Adverse Reaction (Intermediate, Verified 03/12/24 09:36) It did not work, also bad dreams and neuropathy Type of Care/Length of Stay Estimated LOS: Convalescent Care Less Than 30 days Type of Care Needed: Skilled Rehab Potential: Good Prognosis: Good Additional Orders/Day of Discharge Day of Discharge: 03/16/24 Dietary and Speech Recommendations Dietitian Recommendations/Changes: regular diet; ok to continue ensure plus high protein TID as ordered until adequate PO intake/appetite is fully established Discharge Plan Admission Admit Date/Time: 03/12/24 12:13 Attending Provider: Koby Pascal Primary Care Provider: James Pisano Chi Consulting Providers: Estiven Mcmullen; Pasquale Blair; Clark Johnson Instructions Patient Instructions: Compression Fx, ED Back Pain (Acute or Chronic) Discharge Orders/Prescriptions Prescriptions: New oxycodone 5 mg tablet 5 mg PO Q8H PRN (Reason: pain) 3 Days Qty: 10 0RF sennosides-docusate sodium [Senna with Docusate Sodium] 8.6-50 mg tablet 2 tab-cap PO BID PRN (Reason: constipation) Qty: 30 0RF ondansetron 4 mg tablet,disintegrating 4 mg PO Q8H PRN (Reason: nausea and vomiting) Qty: 10 0RF Continued potassium chloride 20 mEq tablet extended release 20 meq PO DAILY cholecalciferol (vitamin D3) 1,250 mcg (50,000 unit) capsule 1,000 unit PO DAILY metoprolol tartrate 50 mg tablet 50 mg PO BID cetirizine 10 MG capsule 10 mg PO DAILY citalopram 10 mg tablet 10 mg PO QHS terazosin 10 mg capsule 10 mg PO QPM lidocaine 5 % Adhesive Patch,Medicated 1 patch topical DAILY 30 Days Qty: 30 0RF Protocol: *Topical Application Instructions APPLICATION INSTRUCTIONS: chronic back pain fluticasone propionate 50 mcg/actuation [place],Suspension 2 spray NASAL DAILY Qty: 0 0RF Xtandi 40 mg Tablet 160 mg PO QPM Qty: 0 0RF atorvastatin 80 mg tablet 80 mg PO DAILY acetaminophen [8 Hour Pain Reliever] 650 mg tablet extended release 650 mg PO Q8H PRN (Reason: pain) furosemide 20 mg tablet 20 mg PO DAILY warfarin 5 mg tablet 7.5 mg PO DAILY Hold Instructions: Resume on 03/25/24. Protocol: Dose Management Condition: Thursday Dose/Route: 7.5 mg Instruction: 1.5 x 5 mg tablets Condition: Thursday Dose/Route: 7.5 mg Instruction: 1.5 x 5 mg tablets Condition: Thursday Dose/Route: 7.5 mg Instruction: 1.5 x 5 mg tablets Condition: Thursday Dose/Route: 7.5 mg Instruction: 1.5 x 5 mg tablets Condition: Dose/Route: 7.5 mg Instruction: 1.5 x 5 mg tablets Condition: Thursday Dose/Route: 7.5 mg Instruction: 1.5 x 5 mg tablets Condition: Thursday Dose/Route: 7.5 mg Instruction: 1.5 x 5 mg tablets Protocol Text: Adjustment Start Date: Thursday03/08/24 INR Value: 3.0 INR Date: 03/08/24 Recheck Date: 04/05/24 Referrals / Follow Up: Clark Johnson MD [Med Staff - Active Staff] - Keep [facility] appointment Pasquale Blair MD [Med Staff - Active Staff] - 03/24/24 1:00 pm James Pisano Chi, MD [Primary Care Provider] - 03/17/24 1:20 pm Disposition Disposition (needs filled in before D/C Order can be placed): Assisted Facility (1) Compression fracture of L4 vertebra Qualifiers: Encounter type: sequela Qualified Code(s): S32.040S - Wedge compression fracture of fourth lumbar vertebra, sequela
[2024-03-16 14:12] VITALS: BP 118/57; PULSE 73; RESP 16; TEMP 36.9; O2SAT 91
--- NOTE | 2024-03-16 14:30 | CASEMGMT ---
Social Work- SW sent transfer summary and med list to [facility], Georgette Watson, and advised pt nurse and pt of transfer. Pt will let his family know. JOHN Nicole
== END 2024-03-16 17:50 | disposition skilled nursing facility (03) ==
LOC: ED 12:19 → MS3 12:27
PROVIDERS: Admitting Provider Hospitalist; Emergency Provider Emergency Medicine; PCP Family Medicine Geriatric Medicine; Visit Provider Family Medicine
DX: M48.062 Spinal stenosis, lumbar region with neurogenic claudication (principal); M80.08XA Age-related osteoporosis with current pathological fracture, vertebra(e), initial encounter for fracture; I48.0 Paroxysmal atrial fibrillation; Z68.38 Body mass index [BMI] 38.0-38.9, adult; R26.2 Difficulty in walking, not elsewhere classified; G89.29 Other chronic pain; I25.10 Atherosclerotic heart disease of native coronary artery without angina pectoris; Z87.891 Personal history of nicotine dependence; E78.5 Hyperlipidemia, unspecified; I10 Essential (primary) hypertension; Z79.899 Other long term (current) drug therapy; Z98.1 Arthrodesis status; Z95.1 Presence of aortocoronary bypass graft; N40.1 Benign prostatic hyperplasia with lower urinary tract symptoms; N13.8 Other obstructive and reflux uropathy; F32.A Depression, unspecified; E66.9 Obesity, unspecified
CPT/HCPCS: 36415; 72100; 72131; 72148; 80048; 85025; 85027; 85610; 94668; 96374; 96375; 97110; 97116; 97162; 97166; 97530; 97535; 97802; 99221; 99283; A4216; G0378; J2405

== ENCOUNTER 2024-03-16 18:06 | Inpatient (IN) | payer MEDICARE, SELFPAY ==
[2024-03-16 18:57] VITALS: BP 112/64; PULSE 89; RESP 18; TEMP 36.9; O2SAT 94; BMI 35.6
--- NOTE | 2024-03-16 21:00 | PCM.HP.STD ---
HPI - General General Date of Admission: 03/16/24 Date of Service: 03/17/24 Chief Complaint: Here for rehabilitation. HPI Narrative 03/12/2024 MEENAKSHI NI, is a 78 Male who presents to [facility] ED with back pain. Acute on chronic back pain, via EMS. History of back pain, with lumbar compression fracture. Pain worse over 10 days, pain radiates to left hip. Dr. Johnson appointment 03/21/2024. Pain improved after oxycodone. X-ray shows significant L4 compression fracture. Lives alone, unable to go home. 03/12/2024 Admit [facility]. Tylenol, Lidoderm, Oxycodone, IV Dilaudid for low back pain. Miralax for bowel regimen. PT/OT Debility. 03/13/2024 Sitting up comfortably, oxycodone helpful. Consult pain management, consult Ortho spine for L4 compression fracture. 03/14/2024 Doing well, pain controlled, able to sit in chair. Order MRI LS spine. 03/15/2024 Dr. Blair noted severe L4-5 stenosis. Recommend upright X0ray, CT L spine, PT. Recommend surgery when medically stable, able to hold coumadin. 03/15/2024 Doing well, pain controlled. PT/OT for TCU, unable to go home 2/2 unable to climb stairs, and he has stairs at home. Hold coumadin, Vitamin K prn. 03/16/2024 Admit to TCU with debility, here for rehabilitation, strengthening, prior to surgery with Dr. Blair. [facility] Medical History Ankle fracture, left Atherosclerotic heart disease of [place] coronary artery without angina pectoris Atrial fibrillation Cancer Closed fracture of left hip Closed left humeral fracture Closed wedge compression fracture of T11 vertebra CPAP (continuous positive airway pressure) dependence Debility Essential hypertension Fall Former tobacco use Fracture of ninth thoracic vertebra (12/27/18) History of Clostridium difficile infection (01/09/19) History of subdural hematoma (post traumatic) (12/27/18) Hyperlipidemia Kidney stones senior living (current) use of anticoagulants Longstanding persistent atrial fibrillation Onycholysis Sepsis Sleep apnea Traumatic hemothorax (12/30/18) Venous insufficiency (chronic) (peripheral) Home Medications potassium chloride 20 mEq tablet,extended release 20 meq PO DAILY supplement 12/03/18 [History Last Taken 03/11/24] cetirizine 10 mg capsule 10 mg PO DAILY Allergy 12/27/18 [History Last Taken 03/16/24] metoprolol tartrate 50 mg tablet 50 mg PO BID bp 03/15/19 [History Last Taken 03/16/24] cholecalciferol (vitamin D3) 1,250 mcg (50,000 unit) capsule 1,000 unit PO DAILY supplement 10/29/20 [History Last Taken 03/16/24] citalopram 10 mg tablet 10 mg PO QHS depression 12/01/22 [History Last Taken 03/11/24] terazosin 10 mg capsule 10 mg PO QPM BPH 12/01/22 [History Last Taken 03/11/24] enzalutamide 40 mg tablet (Xtandi) 160 mg (4 x 40 mg) PO QPM Prostate #0 tabs 12/16/22 [Rx Last Taken 03/15/24] fluticasone propionate 50 mcg/actuation nasal spray,suspension 2 spray NASAL DAILY Allergies #0 grams 12/16/22 [Rx Last Taken 03/16/24] lidocaine 5 % topical patch 1 patch topical DAILY Pain 30 days #30 ea 12/16/22 [Rx Last Taken Unknown] acetaminophen 650 mg tablet,extended release (8 Hour Pain Reliever) 650 mg PO Q8H PRN pain 03/12/24 [History Last Taken 03/12/24] atorvastatin 80 mg tablet 80 mg PO DAILY Cholesterol 03/12/24 [History Last Taken 03/11/24] furosemide 20 mg tablet 20 mg PO DAILY Edema 03/12/24 [History Last Taken 03/11/24] oxycodone 5 mg tablet 5 mg PO Q8H PRN pain 3 days #10 tabs 03/12/24 [Rx Last Taken Unknown] sennosides 8.6 mg-docusate sodium 50 mg tablet (Senna with Docusate Sodium) 2 tab-cap (2 x 8.6-50 mg) PO BID PRN constipation #30 tabs 03/12/24 [Rx Last Taken Unknown] warfarin 5 mg tablet 7.5 mg PO DAILY BLOOD THINNER 03/12/24 [History Last Taken 03/11/24] ondansetron 4 mg disintegrating tablet 4 mg PO Q8H PRN nausea and vomiting #10 tabs 03/15/24 [Rx Last Taken Unknown] Allergy/AdvReac Type Severity Reaction Status Date / Time amiodarone AdvReac Intermediate It did not Verified 03/12/24 09:36 work, also bad dreams and neuropathy Family History Father , Age 57 Myocardial infarction CAD (coronary artery disease) ETOH abuse Mother , Age 47, of bone cancer Bone cancer Brother , age 45, of AIDS AIDS (acquired immune deficiency syndrome) Surgical History H/O cervical spine surgery (01/2020) H/O coronary artery bypass surgery (11/26/98) History of cholecystectomy History of left heart catheterization (11/26/98) History of left hip hemiarthroplasty History of thoracic spinal fusion (12/30/18) Social History household members: none Smoking Status: Former smoker alcohol intake: current details: once a week substance use type: does not use ROS Constitutional Constitutional: Denies chills, fever(s) or weight gain ENT HEENT: Denies headache(s), nasal congestion or nasal discharge Cardiovascular Cardiovascular: Denies chest pain or palpitations Respiratory/Chest Respiratory/Chest: Denies cough, excessive phlegm production or shortness of breath with exertion Gastrointestinal Gastrointestinal: Denies abdominal pain, nausea or vomiting Genitourinary Genitourinary: Denies dysuria Musculoskeletal Musculoskeletal: Denies joint pain or joint swelling Integumentary Integumentary: Denies rash or wounds Neurologic Neurologic: Denies focal weakness, numbness or tingling Psychiatric Psychiatric: Denies anxiety, auditory hallucinations, depression, homicidal ideation or suicidal ideation Vital Signs Vital Signs Vital Signs: 03/16/24 18:57 Temperature 98.4 F Temperature Source Temporal Pulse Rate 89 Respiratory Rate 18 Blood Pressure 112/64 Blood Pressure Mean 80 Blood Pressure Source Monitor Blood Pressure Position Semi-Fowlers Blood Pressure Location Right Arm Pulse Ox 94 Oxygen Delivery Method Room Air Weight Weight: 119.386 kg Body Mass Index (BMI) 35.6 Physical Exam Const alert General Appearance: cooperative HEENT normocephalic Eyes PERRL and EOMs intact bilaterally Neck supple, no JVD and no carotid bruits Resp normal respiratory effort, normal air movement and clear to auscultation bilaterally Cardio regular rate and regular rhythm GI normal to inspection, nondistended, normoactive bowel sounds, non-tender and non-distended Extremity normal capillary refill General Extremity: Negative for edema Skin no rashes or lesions noted General Skin Exam: no breakdown Psych affect normal Appearance: appropriate Results Lab / Micro Data 03/17/24 05:23 03/17/24 05:23 Assessment & Plan Assessment/Plan (1) Debility: (2) Intractable low back pain: (3) Compression fracture of L4 vertebra: QUALIFIERS: Encounter type: sequela Qualified Code(s): S32.040S - Wedge compression fracture of fourth lumbar vertebra, sequela (4) Spinal stenosis of lumbar region with neurogenic claudication: (5) Hypokalemia: (6) Atrial fibrillation: (7) Depression: (8) Hypertension: (9) History of prostate cancer: (10) Hyperlipidemia: (11) Benign prostate hyperplasia: (12) (HFpEF) heart failure with preserved ejection fraction: PLAN: Plan 78 year old male with below past medical history hospitalized for intractable low back pain 2/2 L4 compression fracture, complicated by L4-L5 spinal stenosis, Dr. Blair recommended surgery, admitted to TCU with debility, here for rehabilitation, strengthening, prior to surgery with Dr. Blair. Debility - PT/OT. Pain - Tylenol 1000mg q6 prn pain (1-5), Oxycodone 5mg q4 prn pain (6-10), Lidoderm 1 patch td daily. Bowel - Senna/colace 2 tablets bid, Dulcolax 10mg pr daily prn. Adult immunization - Administer pneumonia vaccine, covid vaccine, flu vaccine as appropriate. DVT prophylaxis - Hold, planning surgery. L4-L5 spinal stenosis - Consult Dr. Blair to plan/schedule surgery. Hyperlipidemia - Atorvastatin 80mg qhs. Vitamin D deficiency - D 25mcg daily. 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 BPH - Doxazosin 8mg qhs. Nutrition - Ensure Plus 120ml tidcm. History prostate cancer - Xtandi 160mg qhs. Allergic rhinitis - Loratadine 10mg daily, Flonase 2 sprays daily prn. HFpEF - Metoprolol 50mg bid, Furosemide 20mg daily. Nausea - Zofran odt 4mg q8 prn. Hypokalemia - KCL 20meq daily.
[2024-03-16 22:55] VITALS: BP 129/63; PULSE 89
[2024-03-16] MEDS: Doxazosin 4 MG Tablet 8 MG PO (22:56)
[2024-03-16] MEDS: Citalopram 10 MG Tablet PO (22:57)
[2024-03-16 22:58] VITALS: BP 129/63; PULSE 89
[2024-03-16] MEDS: Atorvastatin Calcium 80 MG Tablet PO (22:58)
[2024-03-16] MEDS: Metoprolol Tartrate 50 MG Tablet PO (22:58)
[2024-03-16] MEDS: ENZALUTAMIDE 40 MG TABLET 160 MG PO (22:59)
[2024-03-16] MEDS: 0.9% Saline Lock 10 ML Syringe IV (23:04)
[2024-03-17] MEDS: Acetaminophen 500 MG Tablet 1000 MG PO ×3 (00:32→23:32)
[2024-03-17 05:57] LABS: Absolute Lymphocyte Count 1.39 X10^3/uL (0.83-4.51); Basophil# 0.03 X10^3/uL; Basophil% 0.5 % (0-1); Eosinophil# 0.26 X10^3/uL; Eosinophils% 4.1 % (0-5); Hematocrit 34.9 % (40-54); Hemoglobin 11.5 g/dL (13.0-16.5); Lymphocyte # 1.39 X10^3/ul (0.83-4.51); Lymphocyte % 22.2 % (19-41); Mean Corpuscular Volume 91.1 fL (80-94); Mean Platelet Vol. 9.4 fl (6.2-12.0); Monocyte# 0.56 X10^3/uL; Monocyte% 8.9 % (0-10); NRBC Flagged by Analyzer 0 % (0-5); Neutrophil # 4.01 X10^3/uL (2.7-7.7); Platelet Count 120 K/mm3 (150-450); RBC Distribution Width CV 13.3 % (11.6-14.6); RBC Distribution Width SD 44.4 fl (35.1-43.9); Red Blood Count 3.83 M/mm3 (4.6-6.2); White Blood Count 6.3 K/mm3 (4.4-11.0)
[2024-03-17 06:42] LABS: Anion Gap 3 (5-15); BUN 20 mg/dL (7-18); BUN/Creat Ratio 37.7 RATIO (10-20); Calcium,Total 8.9 mg/dL (8.5-10.1); Chloride 107 mmol/L (98-107); Creatinine, Serum 0.53 mg/dL (0.70-1.30); EST Glomerular Filtration Rate 160 mL/min (>60); Est Glom Filt Rate - Afr Amer 194 mL/min (>60); Estimated Creatinine Clearance 104.79 ml/min; Glucose 102 mg/dL (74-106); Potassium 3.9 mmol/L (3.5-5.1); Sodium Level 140 mmol/L (136-145)
[2024-03-17] MEDS: Menthol/Lanolin/Calamine/Znox 113 GM Tube 1 APPLIC TOPICAL ×2 (09:35→21:24)
[2024-03-17] MEDS: Fluticasone 0.05% 1 SPRAY NASAL.SRY 2 SPRAY NASAL (09:38)
[2024-03-17] MEDS: Potassium Chloride Oral Tablet 20 MEQ PO (09:39)
[2024-03-17] MEDS: Furosemide 20 MG Tablet PO (09:40)
[2024-03-17] MEDS: Loratadine 10 MG Tablet PO (09:40)
[2024-03-17] MEDS: Lidocaine 5% Patch 1 PATCH TOPICAL (09:40)
[2024-03-17 09:41] VITALS: BP 123/62; PULSE 91
[2024-03-17] MEDS: Metoprolol Tartrate 50 MG Tablet PO ×2 (09:41→21:26)
[2024-03-17] MEDS: Nystatin Powder 15gm Bottle 1 APPLIC TOPICAL ×2 (09:43→21:25)
[2024-03-17] MEDS: Cholecalciferol (VIT D3) 25 MCG TABLET (1,000 UNITS) PO (09:43)
[2024-03-17] MEDS: Ensure Plus High Protein 120 ML LIQUID PO ×3 (09:49→16:59)
[2024-03-17] MEDS: Tuberculin,Purif.prot.deriv. 50 TU/ML Vial 0.1 ML ID (09:51)
[2024-03-17 10:00] VITALS: BP 123/62; PULSE 91
--- NOTE | 2024-03-17 12:52 | NURSING ---
CALLED AND STATED THAT HE WILL DO PT BACK SURGERY,( POSSIBLE LUMBAR FUSION) ON Thursday03/24/24. WANTS BLOOD THINNER(LOVENOX) HELD FOR 5 DAYS BEFORE SURGERY. PT IS TO BE NPO THURSDAY AT MIDNIGHT. UPDATED.RN AWARE
--- NOTE | 2024-03-17 14:29 | NURSING ---
PT HAS APPOINTMENT AT [facility] ON 03/21/24 AT 0830 WITH ARABELLA GÓMEZ FOR SURGERY CLEARANCE. PLEASE FAX DOWN TO OFFICE A SURGERY CLEARANCE FORM TO BE FILLED OUT ON Thursday03/18/24.
[2024-03-17 15:05] VITALS: BP 116/77; PULSE 76; RESP 18; TEMP 36.3; O2SAT 94
--- NOTE | 2024-03-17 15:32 | PCM.PN.DRR ---
Documented by User: Matilde Mason 03/17/24 15:56 TCU RX Drug Regimen Review Subjective/Objective Subjective/Objective: Subjective: TCU Admission. 78 YOM presented to the ER with back pain. Hospitalized for intractable low back pain 2/2 L4 compression fracture, complicated by L4-L5 spinal stenosis, Dr. Blair recommended surgery. Admitted to TCU with debility for strengthening and rehabilitation. Objective: Allergies amiodarone Adverse Reaction (Intermediate, Verified 03/17/24 11:09) It did not work, also bad dreams and neuropathy Current Medications Generic Name Dose Route Start Last Admin Trade Name Freq PRN Reason Stop Dose Admin Acetaminophen 1,000 mg 03/16/24 21:39 03/17/24 09:55 Acetaminophen 500 Mg Tablet PO 1,000 mg Q8H PRN Administration Pain Score 1-5 Atorvastatin Calcium 80 mg 03/16/24 22:00 03/16/24 22:58 Atorvastatin Calcium 80 Mg Tablet PO 80 mg QHS IVET Administration Bisacodyl 10 mg 03/16/24 21:18 Bisacodyl 10 Mg Suppository RC DAILY PRN Constipation Calamine/Phenol 1 applic 03/17/24 10:00 03/17/24 09:35 Menthol/Lanolin/Calamine/Znox 113 Gm Tube TOPICAL 1 applic BID IVET Administration Protocol Cholecalciferol 25 mcg 03/17/24 10:00 03/17/24 09:43 Cholecalciferol (Vit D3) 25 Mcg Tablet (1,000 Units) PO 25 mcg DAILY IVET Administration Citalopram Hydrobromide 10 mg 03/16/24 22:00 03/16/24 22:57 Citalopram 10 Mg Tablet PO 10 mg QHS IVET Administration Doxazosin Mesylate 8 mg 03/16/24 22:00 03/16/24 22:56 Doxazosin 4 Mg Tablet PO 8 mg QHS IVET Administration Enoxaparin Sodium 40 mg 03/18/24 06:00 Enoxaparin 40 Mg/0.4 Ml Syringe SC DAILY@0600 IVET Fluticasone Propionate 2 spray 03/17/24 10:00 03/17/24 09:38 Fluticasone 0.05% 1 [place] Nasal.Sry NASAL 2 spray DAILY IVET Administration Furosemide 20 mg 03/17/24 10:00 03/17/24 09:40 Furosemide 20 Mg Tablet PO 20 mg DAILY IVET Administration Protocol Lidocaine 1 patch 03/17/24 10:00 03/17/24 09:40 Lidocaine 5% Patch TOPICAL 1 patch DAILY IVET Administration Protocol Loratadine 10 mg 03/17/24 10:00 03/17/24 09:40 Loratadine 10 Mg Tablet PO 10 mg DAILY IVET Administration Metoprolol Tartrate 50 mg 03/16/24 22:00 03/17/24 09:41 Metoprolol Tartrate 50 Mg Tablet PO 50 mg BID IVET Administration Protocol Nutritional Formula (Lactose Free) 120 ml 03/17/24 07:45 03/17/24 11:51 Ensure Plus High Protein 120 Ml Liquid PO 120 ml TIDCM IVET Administration Nystatin 1 applic 03/17/24 10:00 03/17/24 09:43 Nystatin Powder 15gm Bottle TOPICAL 1 applic BID [facility] Administration Protocol Ondansetron HCl 4 mg 03/16/24 18:50 Ondansetron Odt 4 Mg Tablet PO Q8H PRN nausea and vomiting Oxycodone HCl 5 mg 03/16/24 21:20 Oxycodone 5 Mg Tablet PO Q4H PRN PRN Pain Score 6-10 or Pre PT/OT Potassium Chloride 20 meq 03/17/24 08:00 03/17/24 09:39 Potassium Chloride Oral Tablet 20 Meq PO 20 meq DAILYCM IVET Administration Senna/Docusate Sodium 2 tablet 03/16/24 22:00 03/17/24 09:43 Senna/Docusate Sodium 1 Tablet PO Not Given BID IVET Sodium Chloride 10 - 40 ml 03/16/24 19:02 03/16/24 23:04 0.9% Saline Lock 10 Ml Syringe IV 10 ml UD PRN Administration SALINE FLUSH Tuberculin PPD 0.1 ml 03/24/24 10:00 Tuberculin,Purif.Prot.Deriv. 50 Tu/Ml Vial ID 03/24/24 10:01 X1 ONE Problem List (Updated 03/17/24 @ 12:30 by Hazel Watson) (HFpEF) heart failure with preserved ejection fraction (Acute) Intractable low back pain (Acute) Spinal stenosis of lumbar region with neurogenic claudication (Acute) Compression fracture of L4 vertebra (Chronic) Hypertension (Chronic) Depression (Acute) Hyperlipidemia (Acute) Atrial fibrillation (Acute) Benign prostate hyperplasia (Acute) Hypokalemia (Acute) Debility (Acute) History of prostate cancer (Chronic) Vital Signs Temp Pulse Resp BP Pulse Ox O2 Del Method 97.4 F L 76 18 116/77 94 Room Air 03/17/24 15:05 03/17/24 15:05 03/17/24 15:05 03/17/24 15:05 03/17/24 15:05 03/17/24 15:05 Oxygen Delivery Method Room Air Weight: 119.3 kg Body Mass Index (BMI) 35.6 Sodium 140 mmol/L (136-145) 03/17/24 05:23 Potassium 3.9 mmol/L (3.5-5.1) 03/17/24 05:23 Chloride 107 mmol/L (98-107) 03/17/24 05:23 Carbon Dioxide 30.0 mmol/L (21.0-32.0) 03/17/24 05:23 Anion Gap 3 (5-15) L 03/17/24 05:23 BUN 20 mg/dL (7-18) H 03/17/24 05:23 Creatinine 0.53 mg/dL (0.70-1.30) L 03/17/24 05:23 Est GFR (MDRD) Af Amer 194 mL/min (>60) 03/17/24 05:23 Est GFR (MDRD) Non-Af 160 mL/min (>60) 03/17/24 05:23 BUN/Creatinine Ratio 37.7 RATIO (10-20) H 03/17/24 05:23 Glucose 102 mg/dL (74-106) 03/17/24 05:23 Assessment/Plan: 1. Pain: acetaminophen 1000mg PO Q6H PRN pain 1-5, oxycodone 5mg PO Q4H PRN pain 6-10 and lidocaine 5% patch 1 patch topical daily. Resident has had 2 doses of acetaminophen for pain score of 5 in the back/left hip. Please continue to monitor for increased pain, PRN usage and rash. 2. Bowel: senna/docusate 2T PO BID (all doses refused so far) and bisacodyl 10mg RC daily PRN constipation. Last documented bowel movement 03/16. No PRN doses so far. Please continue to monitor for constipation and PRN usage. 3. HFpEF/atrial fibrillation: metoprolol tartrate 50mg PO BID, furosemide 20mg PO daily, warfarin on hold for surgery (last INR 1.7 on 03/16, has enoxaparin). Please continue to monitor BP (last 116/77), HR (last 76), potassium (last 3.9mmol/L), renal function and swelling. 4. DVT prophylaxis: enoxaparin 40mg SC daily. Please continue to monitor for S/S of bleeding, hemoglobin (last 11.5g/dL), platelets (last 120,000) and renal function. To be held 5 days before surgery with Dr. Blair per nursing note. 5. Hyperlipidemia: atorvastatin 80mg PO QHS. Please consider a lipid panel if clinically appropriate as the last level was from 10/2022. Thanks. Please continue to monitor LFTs (last 10/21/23) and muscle pain. 6. History of prostate cancer: Xtandi 160mg PO QHS. Please continue to monitor for S/S of confusion, fatigue, diarrhea, hot flashes and seizures. 7. BPH: doxazosin 8mg PO QHS. Please continue to monitor for S/S of BPH and BP (last 116/77). 8. Allergic rhinitis: loratadine 10mg PO daily and fluticasone 0.05% nasal spray 2 spray nasal daily. Please continue to monitor for S/S of allergies, renal function, dry nares and thrush. 9. Hypokalemia: potassium chloride 20mEq PO daily. Please continue to monitor potassium (last 3.9mmol/L). 10. Nausea: ondansetron ODT 4mg PO Q8H PRN nausea/vomiting. Resident has not used any doses so far. Please continue to monitor for S/S of nausea, vomiting and PRN usage. 11. Vitamin D deficiency: cholecalciferol 25mcg PO daily. Please continue to monitor vitamin D levels (last 10/21/23). Assessment/Plan for indications treated with psychotropic medications: 1. Depression: citalopram 10mg PO QHS. Please see physician note regarding GDR. Please continue to monitor for suicidal ideation (black box warning), falls/fractures (BEERs medication) and sodium (last 140mmol/L). Medical chart and medication regimen reviewed. The following medication irregularities or issues were identified: 1. Atorvastatin 80mg PO QHS. Please consider a lipid panel if clinically appropriate as the last level was from 10/2022. Thanks. Date Date of Note:: 03/17/24 Documented by User: Dr. James Pisano MD 03/17/24 17:37 TCU RX Drug Regimen Review Provider Comments Provider responsibility Provider Comments to Recommendations by Pharmacy: Agree
[2024-03-17 21:26] VITALS: BP 157/92; PULSE 73
[2024-03-17] MEDS: Doxazosin 4 MG Tablet 8 MG PO (21:26)
[2024-03-17] MEDS: Atorvastatin Calcium 80 MG Tablet PO (21:27)
[2024-03-17] MEDS: Citalopram 10 MG Tablet PO (21:27)
[2024-03-17] MEDS: ENZALUTAMIDE 40 MG TABLET 160 MG PO (21:27)
[2024-03-18 06:45] LABS: Cholesterol 108 mg/dL (200); High Density Lipoprotein 42 mg/dL; Triglycerides 48 mg/dL; Very Low Density Lipoprotein 10 mg/dL (5-40)
[2024-03-18 08:00] VITALS: BP 153/96; PULSE 84; RESP 17; TEMP 36.8; O2SAT 94
[2024-03-18] MEDS: Potassium Chloride Oral Tablet 20 MEQ PO (08:02)
[2024-03-18] MEDS: Loratadine 10 MG Tablet PO (08:03)
[2024-03-18] MEDS: Menthol/Lanolin/Calamine/Znox 113 GM Tube 1 APPLIC TOPICAL ×2 (08:03→21:53)
[2024-03-18] MEDS: Fluticasone 0.05% 1 SPRAY NASAL.SRY 2 SPRAY NASAL (08:03)
[2024-03-18 08:04] VITALS: PULSE 84
[2024-03-18] MEDS: Furosemide 20 MG Tablet PO (08:04)
[2024-03-18] MEDS: Metoprolol Tartrate 50 MG Tablet PO ×2 (08:04→21:57)
[2024-03-18] MEDS: Lidocaine 5% Patch 1 PATCH TOPICAL (08:04)
[2024-03-18] MEDS: Cholecalciferol (VIT D3) 25 MCG TABLET (1,000 UNITS) PO (08:05)
[2024-03-18] MEDS: Nystatin Powder 15gm Bottle 1 APPLIC TOPICAL ×2 (08:05→21:54)
[2024-03-18] MEDS: Polyethylene Glycol 3350 17 GM PACKET PO (08:07)
[2024-03-18] MEDS: Ensure Plus High Protein 120 ML LIQUID PO ×3 (08:07→17:30)
[2024-03-18] MEDS: Acetaminophen 500 MG Tablet 1000 MG PO ×2 (08:08→17:32)
--- NOTE | 2024-03-18 12:35 | NURSING ---
Yarn Examiner Note; Activity Asset: Leslie Jaime is independent in his choice of daily activities. He has his smartphone he will watch tv and movies on or do puzzle games. He prefers to do independent activities over group how ever welcomes visits from the uniform room attendant and therapy dog when available. Staff will rmind him of weekly activities and respect his right to say no.
--- NOTE | 2024-03-18 12:46 | NS ---
MST score = 1
[2024-03-18] MEDS: MENTHOL 226.8 GM JAR 1 APPLIC TOPICAL (14:53)
--- NOTE | 2024-03-18 15:01 | CASEMGMT ---
TCU Compliance Consultant Sw met with patient at bedside to complete initial assessment. Introduced self and explained sw role to patient during hospitalization. Patient confirmed code status as Full. Patient verified contacts/ updates. Patient does not have advanced directives in place at this time, when offered to complete them he denied wanting to do so. Patient educated to [facility] advantage plan. Patient's goal is to return to home when he is medically ready for discharge. Patient states that he has all the medical supplies that he needs except for a wide FWW that got broken when he fell this last time. Patient states that he has a friend/ skin care instructor that comes to see him and help him frequently. Sw will remain involved throughout admission to assist with any discharge planning needs. Phong Bhatt, PRIMARY EDUCATION PROFESSOR, HEAD ESTHETICIAN
[2024-03-18 20:00] VITALS: O2SAT 94
[2024-03-18] MEDS: Citalopram 10 MG Tablet PO (21:56)
[2024-03-18] MEDS: Doxazosin 4 MG Tablet 8 MG PO (21:56)
[2024-03-18 21:57] VITALS: BP 125/51; PULSE 83
[2024-03-18] MEDS: Atorvastatin Calcium 80 MG Tablet PO (21:57)
[2024-03-18] MEDS: ENZALUTAMIDE 40 MG TABLET 160 MG PO (21:58)
[2024-03-18 22:02] VITALS: BP 125/51; PULSE 83
[2024-03-19] MEDS: Acetaminophen 500 MG Tablet 1000 MG PO ×3 (02:33→21:37)
[2024-03-19] MEDS: Potassium Chloride Oral Tablet 20 MEQ PO (08:42)
[2024-03-19] MEDS: Ensure Plus High Protein 120 ML LIQUID PO ×3 (08:42→17:55)
[2024-03-19] MEDS: Lidocaine 5% Patch 1 PATCH TOPICAL (10:28)
[2024-03-19] MEDS: Loratadine 10 MG Tablet PO (10:29)
[2024-03-19] MEDS: Furosemide 20 MG Tablet PO (10:29)
[2024-03-19 10:31] VITALS: PULSE 92
[2024-03-19] MEDS: Cholecalciferol (VIT D3) 25 MCG TABLET (1,000 UNITS) PO (10:31)
[2024-03-19] MEDS: Metoprolol Tartrate 50 MG Tablet PO ×2 (10:31→21:32)
[2024-03-19] MEDS: Fluticasone 0.05% 1 SPRAY NASAL.SRY 2 SPRAY NASAL (10:31)
[2024-03-19] MEDS: MENTHOL 226.8 GM JAR 1 APPLIC TOPICAL (10:34)
[2024-03-19] MEDS: Nystatin Powder 15gm Bottle 1 APPLIC TOPICAL ×2 (10:38→21:29)
[2024-03-19] MEDS: Menthol/Lanolin/Calamine/Znox 113 GM Tube 1 APPLIC TOPICAL ×2 (10:38→21:27)
[2024-03-19 16:00] VITALS: BP 105/72; PULSE 80; RESP 18; TEMP 35.9; O2SAT 96
[2024-03-19 19:40] VITALS: O2SAT 94
[2024-03-19] MEDS: ENZALUTAMIDE 40 MG TABLET 160 MG PO (21:30)
[2024-03-19] MEDS: Doxazosin 4 MG Tablet 8 MG PO (21:31)
[2024-03-19] MEDS: Citalopram 10 MG Tablet PO (21:31)
[2024-03-19 21:32] VITALS: BP 139/83; PULSE 81
[2024-03-19] MEDS: Atorvastatin Calcium 80 MG Tablet PO (21:32)
[2024-03-20] MEDS: Potassium Chloride Oral Tablet 20 MEQ PO (07:54)
[2024-03-20] MEDS: Furosemide 20 MG Tablet PO (07:55)
[2024-03-20] MEDS: Lidocaine 5% Patch 1 PATCH TOPICAL (07:55)
[2024-03-20] MEDS: Loratadine 10 MG Tablet PO (07:56)
[2024-03-20] MEDS: Cholecalciferol (VIT D3) 25 MCG TABLET (1,000 UNITS) PO (07:57)
[2024-03-20] MEDS: Nystatin Powder 15gm Bottle 1 APPLIC TOPICAL ×2 (08:05→22:18)
[2024-03-20] MEDS: Menthol/Lanolin/Calamine/Znox 113 GM Tube 1 APPLIC TOPICAL ×2 (08:05→22:18)
[2024-03-20] MEDS: Fluticasone 0.05% 1 SPRAY NASAL.SRY 2 SPRAY NASAL (08:06)
[2024-03-20 08:09] VITALS: BP 156/75; PULSE 86
[2024-03-20] MEDS: Metoprolol Tartrate 50 MG Tablet PO ×2 (08:09→22:23)
[2024-03-20] MEDS: Ensure Plus High Protein 120 ML LIQUID PO ×2 (08:13→12:13)
[2024-03-20] MEDS: Acetaminophen 500 MG Tablet 1000 MG PO ×2 (08:22→22:27)
[2024-03-20 10:00] VITALS: PULSE 86; RESP 18; O2SAT 93
[2024-03-20 13:50] VITALS: BP 106/71; PULSE 76; RESP 16; TEMP 36.1; O2SAT 93
[2024-03-20] MEDS: MENTHOL 226.8 GM JAR 1 APPLIC TOPICAL (19:33)
[2024-03-20] MEDS: ENZALUTAMIDE 40 MG TABLET 160 MG PO (22:21)
[2024-03-20] MEDS: Citalopram 10 MG Tablet PO (22:22)
[2024-03-20] MEDS: Atorvastatin Calcium 80 MG Tablet PO (22:22)
[2024-03-20] MEDS: Doxazosin 4 MG Tablet 8 MG PO (22:22)
[2024-03-20 22:23] VITALS: BP 132/78; PULSE 77
[2024-03-20 22:55] VITALS: BP 132/78; PULSE 77
[2024-03-21] MEDS: Acetaminophen 500 MG Tablet 1000 MG PO (06:46)
[2024-03-21] MEDS: MENTHOL 226.8 GM JAR 1 APPLIC TOPICAL ×2 (06:46→13:36)
[2024-03-21] MEDS: Lidocaine 5% Patch 1 PATCH TOPICAL (06:47)
[2024-03-21] MEDS: Potassium Chloride Oral Tablet 20 MEQ PO (08:08)
[2024-03-21] MEDS: Ensure Plus High Protein 120 ML LIQUID PO ×3 (08:08→17:51)
[2024-03-21] MEDS: Loratadine 10 MG Tablet PO (08:09)
[2024-03-21] MEDS: Furosemide 20 MG Tablet PO (08:09)
[2024-03-21] MEDS: Fluticasone 0.05% 1 SPRAY NASAL.SRY 2 SPRAY NASAL (08:09)
[2024-03-21 08:11] VITALS: BP 139/77; PULSE 74
[2024-03-21] MEDS: Cholecalciferol (VIT D3) 25 MCG TABLET (1,000 UNITS) PO (08:11)
[2024-03-21] MEDS: Metoprolol Tartrate 50 MG Tablet PO ×2 (08:11→21:41)
[2024-03-21] MEDS: Nystatin Powder 15gm Bottle 1 APPLIC TOPICAL ×2 (08:14→21:42)
[2024-03-21] MEDS: Menthol/Lanolin/Calamine/Znox 113 GM Tube 1 APPLIC TOPICAL ×2 (08:14→21:42)
--- NOTE | 2024-03-21 08:29 | DS.PCM_ITS ---
Providers Date of Admission: 03/16/24 Primary Care Physician: Dr. James Pisano MD Consultations 03/16/24 21:18 Consult: Orthopedics Routine Consulting Provider: Pasquale Blair Reason for Consult: L4-L5 spinal stenosis, for surgery. EMERGENT Consult: No MD Notified: Yes Date Notified: 03/17/24 Time Notified: 09:07 Method of Notification: Answering Service Reason For Visit: ACUTE ON CHRONIC BACK PAIN, INABILITY TO AMBULATE Diagnosis Discharge Diagnosis (1) Debility: Status: Acute Code(s): R53.81 - Other malaise (2) Intractable low back pain: Status: Acute Code(s): M54.59 - Other low back pain (3) Compression fracture of L4 vertebra: Status: Chronic Code(s): S32.040A - Wedge compression fracture of fourth lumbar vertebra, initial encounter for closed fracture Qualifiers: Encounter type: sequela Qualified Code(s): S32.040S - Wedge compression fracture of fourth lumbar vertebra, sequela (4) Spinal stenosis of lumbar region with neurogenic claudication: Status: Acute Code(s): M48.062 - Spinal stenosis, lumbar region with neurogenic claudication (5) Hypokalemia: Status: Acute Code(s): E87.6 - Hypokalemia (6) Atrial fibrillation: Status: Acute Code(s): I48.91 - Unspecified atrial fibrillation (7) Depression: Status: Acute Code(s): F32.A - Depression, unspecified (8) Hypertension: Status: Chronic Code(s): I10 - Essential (primary) hypertension (9) History of prostate cancer: Status: Chronic Code(s): Z85.46 - Personal history of malignant neoplasm of prostate (10) Hyperlipidemia: Status: Acute Code(s): E78.5 - Hyperlipidemia, unspecified (11) Benign prostate hyperplasia: Status: Acute Code(s): N40.0 - Benign prostatic hyperplasia without lower urinary tract symptoms (12) (HFpEF) heart failure with preserved ejection fraction: Status: Acute Code(s): I50.30 - Unspecified diastolic (congestive) heart failure Plan 78 year old male with below past medical history hospitalized for intractable low back pain 2/2 L4 compression fracture, complicated by L4-L5 spinal stenosis, Dr. Blair recommended surgery, admitted to TCU with debility, here for rehabilitation, strengthening, prior to surgery with Dr. Blair. * Debility - PT/OT. * Pain - Tylenol 1000mg q6 prn pain (1-5), Oxycodone 5mg q4 prn pain (6-10), Lidoderm 1 patch td daily. * Bowel - Senna/colace 2 tablets bid, Dulcolax 10mg pr daily prn. * Adult immunization - Administer pneumonia vaccine, covid vaccine, flu vaccine as appropriate. * DVT prophylaxis - Hold, planning surgery. * L4-L5 spinal stenosis - Consult Dr. Blair to plan/schedule surgery. * Hyperlipidemia - Atorvastatin 80mg qhs. * Vitamin D deficiency - D 25mcg daily. * Depression - Citalopram 10mg qhs, stable chronic prison use, GDR not recommended. * BPH - Doxazosin 8mg qhs. * Nutrition - Ensure Plus 120ml tidcm. * History prostate cancer - Xtandi 160mg qhs. * Allergic rhinitis - Loratadine 10mg daily, Flonase 2 sprays daily prn. * HFpEF - Metoprolol 50mg bid, Furosemide 20mg daily. * Nausea - Zofran odt 4mg q8 prn. * Hypokalemia - KCL 20meq daily. Medications at Discharge Home Medications potassium chloride 20 mEq tablet,extended release 20 meq PO DAILY supplement 12/03/18 cetirizine 10 mg capsule 10 mg PO DAILY Allergy 12/27/18 metoprolol tartrate 50 mg tablet 50 mg PO BID bp 03/15/19 cholecalciferol (vitamin D3) 1,250 mcg (50,000 unit) capsule 1,000 unit PO DAILY supplement 10/29/20 citalopram 10 mg tablet 10 mg PO QHS depression 12/01/22 terazosin 10 mg capsule 10 mg PO QPM BPH 12/01/22 enzalutamide 40 mg tablet (Xtandi) 160 mg (4 x 40 mg) PO QPM Prostate #0 tabs 12/16/22 fluticasone propionate 50 mcg/actuation nasal spray,suspension 2 spray NASAL DAILY Allergies #0 grams 12/16/22 lidocaine 5 % topical patch 1 patch topical DAILY Pain 30 days #30 ea 12/16/22 acetaminophen 650 mg tablet,extended release (8 Hour Pain Reliever) 650 mg PO Q8H PRN pain 03/12/24 atorvastatin 80 mg tablet 80 mg PO DAILY Cholesterol 03/12/24 furosemide 20 mg tablet 20 mg PO DAILY Edema 03/12/24 oxycodone 5 mg tablet 5 mg PO Q8H PRN pain 3 days #10 tabs 03/12/24 sennosides 8.6 mg-docusate sodium 50 mg tablet (Senna with Docusate Sodium) 2 tab-cap (2 x 8.6-50 mg) PO BID PRN constipation #30 tabs 03/12/24 warfarin 5 mg tablet 7.5 mg PO DAILY BLOOD THINNER 03/12/24 ondansetron 4 mg disintegrating tablet 4 mg PO Q8H PRN nausea and vomiting #10 tabs 03/15/24 doxazosin 4 mg tablet (Cardura) 4 mg PO DAILY 03/21/24 Hospital Course Operations None Procedures None Summary of Care Provided Minutes Spent on Discharge: 35 Hospital Course: 78 year old male with below past medical history hospitalized for intractable low back pain 2/2 L4 compression fracture, complicated by L4-L5 spinal stenosis, Dr. Blair recommended surgery, admitted to TCU with debility, here for rehabilitation, strengthening, prior to surgery with Dr. Blair. Discharge to [facility] 03/24/2024 for lumbar decompression surgery with Dr. Blair. Physical Exam Const alert General Appearance: cooperative HEENT normocephalic Eyes PERRL and EOMs intact bilaterally Neck supple, no JVD and no carotid bruits Resp normal respiratory effort, normal air movement and clear to auscultation bilaterally Cardio regular rate and regular rhythm GI normal to inspection, nondistended, normoactive bowel sounds, non-tender and non-distended Extremity normal capillary refill General Extremity: Negative for edema Skin no rashes or lesions noted General Skin Exam: no breakdown Psych affect normal Appearance: appropriate Weight / BMI Weight Weight: 119.3 kg Body Mass Index (BMI) 35.6 ABG / Lab / Microbiology Data 03/17/24 05:23 03/17/24 05:23 D/C Instructions Discharge Diet: - (NPO.) Discharge Activity: Return to Normal Activity Weight Bearing Status: Weight bearing as tolerated Call your doctor if you observe: Fever of 101 or Higher, Inability to urinate, Inability to have a bowel movement, Shortness of breath, Dizziness, Fainting spells, Swelling in the ankles, Chest pain and Uncontrolled pain Additional Instructions: Discharge to [facility] 03/24/2024 for lumbar decompression surgery with Dr. Blair. Please Follow Up With: ARABELLA GÓMEZ Meaningful Use Info Meaningful Use Meaningful Use Diagnoses (Choose all that apply): None applicable Ischemic Stroke Statin Dosing Therapy Reference: STATIN DOSE THERAPY REFERENCE: * Patients > 75 years receive moderate or high dose statin therapy. * Patients 75 years or YOUNGER should receive HIGH intensity statin dose unless contraindicated. You will be required to document reason for non-treatment if statin daily dose does not meet guidelines. HIGH DOSE STATIN THERAPY DAILY Atorvastatin > than or = to 40 mg Rosuvastatin > than or = to 20 mg Amlodipine + Atorvastatin > than or = to 2.5/40 mg Ezetimibe + Simvastatin 10/80 mg Simvastatin 80mg Discharge Plan Admission Admit Date/Time: 03/16/24 18:06 Primary Reason for Your Visit: Debility. Attending Provider: James Pisano Chi Primary Care Provider: James Pisano Chi Consulting Providers: Pasquale Blair Instructions Additional Instructions / Restrictions: Discharge to [facility] 03/24/2024 for lumbar decompression surgery with Dr. Blair. Discharge Orders/Prescriptions Prescriptions: No Action potassium chloride 20 mEq tablet extended release 20 meq PO DAILY cholecalciferol (vitamin D3) 1,250 mcg (50,000 unit) capsule 1,000 unit PO DAILY metoprolol tartrate 50 mg tablet 50 mg PO BID doxazosin [Cardura] 4 mg tablet 4 mg PO DAILY cetirizine 10 MG capsule 10 mg PO DAILY citalopram 10 mg tablet 10 mg PO QHS terazosin 10 mg capsule 10 mg PO QPM lidocaine 5 % Adhesive Patch,Medicated 1 patch topical DAILY 30 Days Qty: 30 0RF Protocol: *Topical Application Instructions APPLICATION INSTRUCTIONS: chronic back pain fluticasone propionate 50 mcg/actuation [place],Suspension 2 spray NASAL DAILY Qty: 0 0RF Xtandi 40 mg Tablet 160 mg PO QPM Qty: 0 0RF oxycodone 5 mg tablet 5 mg PO Q8H PRN (Reason: pain) 3 Days Qty: 10 0RF sennosides-docusate sodium [Senna with Docusate Sodium] 8.6-50 mg tablet 2 tab-cap PO BID PRN (Reason: constipation) Qty: 30 0RF atorvastatin 80 mg tablet 80 mg PO DAILY acetaminophen [8 Hour Pain Reliever] 650 mg tablet extended release 650 mg PO Q8H PRN (Reason: pain) furosemide 20 mg tablet 20 mg PO DAILY warfarin 5 mg tablet 7.5 mg PO DAILY Hold Instructions: Resume on 03/25/24. Protocol: Dose Management Condition: Thursday Dose/Route: 7.5 mg Instruction: 1.5 x 5 mg tablets Condition: Thursday Dose/Route: 7.5 mg Instruction: 1.5 x 5 mg tablets Condition: Thursday Dose/Route: 7.5 mg Instruction: 1.5 x 5 mg tablets Condition: Thursday Dose/Route: 7.5 mg Instruction: 1.5 x 5 mg tablets Condition: Dose/Route: 7.5 mg Instruction: 1.5 x 5 mg tablets Condition: Thursday Dose/Route: 7.5 mg Instruction: 1.5 x 5 mg tablets Condition: Thursday Dose/Route: 7.5 mg Instruction: 1.5 x 5 mg tablets Protocol Text: Adjustment Start Date: Thursday03/08/24 INR Value: 3.0 INR Date: 03/08/24 Recheck Date: 04/05/24 ondansetron 4 mg tablet,disintegrating 4 mg PO Q8H PRN (Reason: nausea and vomiting) Qty: 10 0RF Referrals / Follow Up: James Pisano Chi, MD [Primary Care Provider] - Disposition Disposition (needs filled in before D/C Order can be placed): [facility]
[2024-03-21 10:00] VITALS: PULSE 76; RESP 18; O2SAT 96
--- NOTE | 2024-03-21 10:32 | NURSING ---
Return from [facility] this AM with NO for Chemical stress test on 03-23-24 at 0715 and a F/U for 09-21-24 at 1330. Appt placed on discharge paperwork.
--- NOTE | 2024-03-21 14:18 | NURSING ---
Addendum entered by Maral Kulkarni 03/21/24 14:41: Able to place EKG order. Tracy with pre-op says lab can see other labs to be drawn and that they just need called. Lab called and they are made aware of the labs needed and that they need drawn today. Original Note: Tracy with pre-op calls regarding labs/tests needing done prior to surgery on 03/24/[address] Daley. She is asking that theses are done BERRY. Orders placed in [facility].
[2024-03-21 14:47] VITALS: BP 117/61; PULSE 82; RESP 22; TEMP 36.1; O2SAT 93
--- NOTE | 2024-03-21 16:15 | CASEMGMT ---
Social Work Physician notes indicate pt will discharge on 03/24 the [facility] hospital for surgery. SW met with pt the pt who confirms this and states he plans to return to TCU for continued therapy after surgery. JOHN Michaels
[2024-03-21 21:41] VITALS: BP 131/83; PULSE 80
[2024-03-21] MEDS: Doxazosin 4 MG Tablet 8 MG PO (21:41)
[2024-03-21] MEDS: Atorvastatin Calcium 80 MG Tablet PO (21:41)
[2024-03-21] MEDS: Citalopram 10 MG Tablet PO (21:41)
[2024-03-21] MEDS: ENZALUTAMIDE 40 MG TABLET 160 MG PO (21:42)
[2024-03-22] MEDS: Acetaminophen 500 MG Tablet 1000 MG PO ×2 (02:04→17:51)
[2024-03-22 08:15] VITALS: BP 135/68; PULSE 78; RESP 17; TEMP 36.6; O2SAT 96
[2024-03-22] MEDS: Potassium Chloride Oral Tablet 20 MEQ PO (08:18)
[2024-03-22] MEDS: Lidocaine 5% Patch 1 PATCH TOPICAL (08:18)
[2024-03-22] MEDS: Fluticasone 0.05% 1 SPRAY NASAL.SRY 2 SPRAY NASAL (08:18)
[2024-03-22] MEDS: Loratadine 10 MG Tablet PO (08:18)
[2024-03-22] MEDS: Furosemide 20 MG Tablet PO (08:18)
[2024-03-22 08:19] VITALS: PULSE 78
[2024-03-22] MEDS: Menthol/Lanolin/Calamine/Znox 113 GM Tube 1 APPLIC TOPICAL ×2 (08:19→20:55)
[2024-03-22] MEDS: Cholecalciferol (VIT D3) 25 MCG TABLET (1,000 UNITS) PO (08:19)
[2024-03-22] MEDS: Metoprolol Tartrate 50 MG Tablet PO ×2 (08:19→20:52)
[2024-03-22] MEDS: Nystatin Powder 15gm Bottle 1 APPLIC TOPICAL ×2 (08:20→20:55)
[2024-03-22] MEDS: Ensure Plus High Protein 120 ML LIQUID PO (08:21)
--- NOTE | 2024-03-22 10:04 | NURSING ---
Offered covid vaccine. Patient would like to receive it, VIS provided. Will hold off until after surgery.
[2024-03-22 11:16] VITALS: BMI 35.5
[2024-03-22] MEDS: MENTHOL 226.8 GM JAR 1 APPLIC TOPICAL (17:51)
--- NOTE | 2024-03-22 18:07 | CASEMGMT ---
Social Work SW met with patient at bedside to complete MDS. BIM () PhQ (00). Patient informed SW that he is nervous regarding surgery, but has hope that the surgery improves quality of life. Patient goal is to return to TCU post surgery and improve with physical therapy to transition home with home health care services. SW will continue to monitor to support patient with discharge planning. LAVONNE Downey
[2024-03-22] MEDS: ENZALUTAMIDE 40 MG TABLET 160 MG PO (20:51)
[2024-03-22 20:52] VITALS: BP 129/83; PULSE 67
[2024-03-22] MEDS: Citalopram 10 MG Tablet PO (20:52)
[2024-03-22] MEDS: Atorvastatin Calcium 80 MG Tablet PO (20:52)
[2024-03-22] MEDS: Doxazosin 4 MG Tablet 8 MG PO (20:52)
[2024-03-23] MEDS: Acetaminophen 500 MG Tablet 1000 MG PO ×2 (01:21→09:45)
--- NOTE | 2024-03-23 08:44 | NURSING ---
Quality Project Manager Note; MDS for 03/23/2024 Complete
[2024-03-23] MEDS: Potassium Chloride Oral Tablet 20 MEQ PO (09:45)
[2024-03-23] MEDS: Ensure Plus High Protein 120 ML LIQUID PO ×2 (09:45→13:38)
[2024-03-23] MEDS: Lidocaine 5% Patch 1 PATCH TOPICAL (09:46)
[2024-03-23] MEDS: Loratadine 10 MG Tablet PO (09:46)
[2024-03-23] MEDS: Furosemide 20 MG Tablet PO (09:46)
[2024-03-23 09:47] VITALS: BP 156/81; PULSE 84
[2024-03-23] MEDS: Fluticasone 0.05% 1 SPRAY NASAL.SRY 2 SPRAY NASAL (09:47)
[2024-03-23] MEDS: Metoprolol Tartrate 50 MG Tablet PO ×2 (09:47→20:31)
[2024-03-23] MEDS: Nystatin Powder 15gm Bottle 1 APPLIC TOPICAL ×2 (09:54→20:35)
[2024-03-23] MEDS: Menthol/Lanolin/Calamine/Znox 113 GM Tube 1 APPLIC TOPICAL ×2 (09:54→20:35)
[2024-03-23] MEDS: Cholecalciferol (VIT D3) 25 MCG TABLET (1,000 UNITS) PO (09:54)
[2024-03-23] MEDS: Polyethylene Glycol 3350 17 GM PACKET PO (10:02)
--- NOTE | 2024-03-23 13:43 | CASEMGMT ---
Social Work IDT met with patient, caregiver, Paula at bedside and sister, Keya on phone for care plan meeting. Discussed patient progress with therapy (PT/OT), dietary, and activities. Patient is active with activities independently. Patient's weight has been stable with nutrition. PT patient is progressing with therapy; SBA for transfers and stand/sit. Patient is ambulating 170ft with therapy; no steps at this time. Patient is independent upper extremity and requires minimal assist with lower extremity. Therapy will continue to follow up post surgery. SW educated patient on [facility] insurance coverage and benefits. [facility]. Patient goal is to return home with assistance as needed. Patient would like to have home health care post discharge. Patient's caregiver, Paula inquired about Ortho plan for pain management and discussions regarding lumber surgery. Paula inquired about the impact of previous fall causing increased pain and decline in ambulation. Care team to notify Physician and encourage Physician support. Patient informed care team that he will follow up with Physician. LAVONNE Downey
--- NOTE | 2024-03-23 14:30 | STRESSREP_ITS ---
Stress Test Report Date: 03/23/2024 Procedure: Pharmacologic stress nuclear imaging study Indications: Coronary artery disease Consent: Per the patient Procedure: The patient underwent pharmacologic (Regadenoson 0.4mg ) evaluation with a peak heart rate of 133 beats per minute (92%predicted maximal heart rate) and a peak blood pressure of 128/80 mmHg. The baseline ECG demonstrated atrial fibrillation. The peak pharmacologic ECG demonstrated no diagnostic ischemic changes. Apart from baseline atrial fibrillation, no significant dysrhythmias were noted. There was no complaint of chest discomfort during pharmacologic infusion or recovery. The patient was injected with 12.0 millicuries of technetium 99m Cardiolite and subsequently rest SPECT Cardiolite nuclear imaging was obtained in the horizontal long, vertical long, and short axis views. The patient underwent pharmacologic (Regadenoson) evaluation. The patient was injected with 36.0 millicuries of technetium 99m Cardiolite and subsequently stress SPECT Cardiolite nuclear imaging was obtained in the horizontal long, vertical long, and short axis views. A gated Cardiolite study at peak stress was obtained. The examination was stopped secondary to completion of protocol. Rest and stress SPECT Cardiolite nuclear imaging status post realignment, and normalization demonstrate small basal lateral defect which is fixed. There is end systolic thickening and brightening. The gated Cardiolite study demonstrates myocardial thickening and inward wall motion. The reported LVEF is 58%. Impression: 1. Pharmacologic (Regadenoson) evaluation 2. Peak pharmacologic ECG with no diagnostic ischemic changes. 3. Baseline atrial fibrillation. 5. Small fixed basal lateral defect that may suggest prior infarct with no shabbir-infarct ischemia. 6. The gated Cardiolite study reports an LVEF of 58%. This note was generated with [employer] software. It may contain incorrect words, spelling, and punctuation that were not noted in checking the note before signing.
[2024-03-23 14:52] VITALS: BP 153/81; PULSE 84; RESP 18; TEMP 36.1; O2SAT 97
[2024-03-23 20:17] VITALS: PULSE 78; RESP 16; O2SAT 98
[2024-03-23 20:31] VITALS: BP 124/64; PULSE 78
[2024-03-23] MEDS: Atorvastatin Calcium 80 MG Tablet PO (20:31)
[2024-03-23] MEDS: Doxazosin 4 MG Tablet 8 MG PO (20:31)
[2024-03-23] MEDS: Citalopram 10 MG Tablet PO (20:31)
[2024-03-23] MEDS: ENZALUTAMIDE 40 MG TABLET 160 MG PO (20:31)
[2024-03-24 05:00] VITALS: PULSE 75; RESP 16; O2SAT 95
[2024-03-24 05:12] VITALS: BP 135/60; PULSE 75
[2024-03-24] MEDS: Ondansetron ODT 4 MG Tablet PO (05:12)
[2024-03-24] MEDS: Metoprolol Tartrate 50 MG Tablet PO (05:12)
[2024-03-24] MEDS: Acetaminophen 500 MG Tablet 1000 MG PO (05:12)
[2024-03-24 05:30] VITALS: BP 135/60; PULSE 75; RESP 16; TEMP 36.7; O2SAT 94
--- NOTE | 2024-03-29 10:48 | MDS.RN ---
Information for the MDS was obtained from review of the clinical record, interview of resident, staff, and direct observation of resident?s care.
== END 2024-03-24 05:30 | disposition short-term general hospital (02) | DRG 552 ==
PROVIDERS: Admitting Provider Family Medicine Geriatric Medicine; PCP Family Medicine Geriatric Medicine; Visit Provider Family Medicine Geriatric Medicine
DX: M48.062 Spinal stenosis, lumbar region with neurogenic claudication (principal); I48.11 Longstanding persistent atrial fibrillation; I50.32 Chronic diastolic (congestive) heart failure; I11.0 Hypertensive heart disease with heart failure; F32.A Depression, unspecified; E87.6 Hypokalemia; E55.9 Vitamin D deficiency, unspecified; E78.5 Hyperlipidemia, unspecified; I25.10 Atherosclerotic heart disease of native coronary artery without angina pectoris; J30.9 Allergic rhinitis, unspecified; S32.040S Wedge compression fracture of fourth lumbar vertebra, sequela; Z85.46 Personal history of malignant neoplasm of prostate; Z87.891 Personal history of nicotine dependence; N40.0 Benign prostatic hyperplasia without lower urinary tract symptoms; Z79.899 Other long term (current) drug therapy; X58.XXXD Exposure to other specified factors, subsequent encounter
CPT/HCPCS: 36415; 80048; 80061; 85025; 93005; 97110; 97116; 97162; 97166; 97530; 97535; 97802; A4216

== ENCOUNTER → 2024-03-23 | Outpatient (CLI) | payer MEDICARE, SELFPAY | END | disposition home or self-care (01) | LOC: CVS 07:13 | PROVIDERS: PCP Family Medicine Geriatric Medicine; Referring Provider Nurse Practitioner Gerontology; Visit Provider Nurse Practitioner Gerontology | DX: Z01.818 Encounter for other preprocedural examination (principal); I25.10 Atherosclerotic heart disease of native coronary artery without angina pectoris; Z95.1 Presence of aortocoronary bypass graft | CPT/HCPCS: 78452; 93017; A9500; A4216; J2785 ==

== ENCOUNTER 2024-03-24 14:03 | Observation (INO) | payer MEDICARE, SELFPAY ==
[2024-03-21 17:02] LABS: Magnesium 2.1 mg/dL (1.6-2.6)
[2024-03-21 17:58] LABS: HIV - WCH Non-Reactive (Nonreactive); Hepatitis B Surface Antibody Non-Reactive; Hepatitis C Antibody Non-Reactive (Nonreactive)
[2024-03-23 05:08] LABS: Hepatitis A AB, Total Negative (Negative)
[2024-03-24] VITALS (14 sets, daily range): BP systolic 103–138; BP diastolic 57–79; PULSE 57–80; RESP 13–18; TEMP 36.1–36.6; O2SAT 94–100; BMI 35.4; BMI 35.5
[2024-03-24] MEDS: Magnesium 1 GM over 15 mins IV (06:21)
[2024-03-24] MEDS: Vancomycin HCl 1,750 MG in 0.9% Normal Saline (500mL Bag) 500 ML 250 MG IV ×2 (06:21→18:14)
[2024-03-24] MEDS: Lactated Ringers 1,000 ML 15 ML IV (06:26)
[2024-03-24 06:27] LABS: INR Fingerstick 1.2; Prothrombin Time Fingerstick 13.3 SEC (11.7-14.9)
--- NOTE | 2024-03-24 06:30 | RAD_ITS ---
PROCEDURE: Intraoperative fluoroscopic services provided for L4-L5 laminectomy. DATE OF EXAMINATION: March 24, 2024. INDICATION: Male, 78 years old. L4-L5 laminectomy. FLUOROSCOPY TIME (if supplied): (9 seconds) minutes/seconds. 11.31 mGy. 2 images were submitted. Compression fracture of the L4 vertebrae. RAD/Spine 1 View Any Level IMPRESSION: Fluoroscopic services provided for laminectomy at the L4-L5 level. Electronically Signed: Benjie Lieberman MD at 10:44 EDT ,
[2024-03-24 07:04] LABS: Bedside Glucose 96 mg/dL (74-106)
--- NOTE | 2024-03-24 07:45 | PCM.HP.BLA ---
History and Physical Date of Admission: 03/24/24 HPI Consult Data Date of Consult: 03/15/24 HPI Narrative HPI Narrative: MEENAKSHI NI, is a 78 M who presents with worsening ability to walk. Patient was admitted over the weekend and I was consulted for acute on chronic back pain. I saw him this morning in room 320. 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 He did not have any balance issues over the years. He however had a fracture about 30 years ago in his lower back for which she has always had on and off back pain over the decades. He then found that he had severe difficulty walking and over the years he would always squat down while walking distances to be able to walk longer. He then became reliant on a walker at least for the last 2 to 3 years. Over the last few months he has only been able to walk around the house and may be up to the car outside. He worsens significantly that he almost was unable to walk over the last 1 to 2 weeks which led to his admission to the hospital over the last few days. He reports low back pain that radiates towards left worse than right buttock region. He has severe numbness in the left leg and foot compared to the right, which worsens when he stands and walks. He has A-fib and is on Coumadin. He denies any bowel bladder incontinence however he has been placed on a condom catheter for convenience since this hospitalization. He denies any numbness in the perianal region. He does feel constipated from the medications. [facility] Medical History (Updated 03/15/24 @ 09:[address] 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 Longstanding persistent atrial fibrillation Onycholysis Sepsis Sleep apnea Traumatic hemothorax (12/30/18) Venous insufficiency (chronic) (peripheral) Home Medications potassium chloride 20 mEq tablet,extended release 20 meq PO DAILY supplement 12/03/18 [History Last Taken 03/11/24] cetirizine 10 mg capsule 10 mg PO DAILY Allergy 12/27/18 [History Last Taken 03/11/24] metoprolol tartrate 50 mg tablet 50 mg PO BID bp 03/15/19 [History Last Taken 03/11/24] cholecalciferol (vitamin D3) 1,250 mcg (50,000 unit) capsule 1,000 unit PO DAILY supplement 10/29/20 [History Last Taken 03/11/24] citalopram 10 mg tablet 10 mg PO QHS depression 12/01/22 [History Last Taken 03/11/24] terazosin 10 mg capsule 10 mg PO QPM BPH 12/01/22 [History Last Taken 03/11/24] enzalutamide 40 mg tablet (Xtandi) 160 mg (4 x 40 mg) PO QPM #0 tabs 12/16/22 [Rx Last Taken 07/24/23] fluticasone propionate 50 mcg/actuation nasal spray,suspension 2 spray NASAL DAILY #0 grams 12/16/22 [Rx Last Taken 03/11/24] lidocaine 5 % topical patch 1 patch topical DAILY 30 days #30 ea 12/16/22 [Rx Last Taken Unknown] acetaminophen 650 mg tablet,extended release (8 Hour Pain Reliever) 650 mg PO Q8H PRN pain 03/12/24 [History Last Taken 03/12/24] atorvastatin 80 mg tablet 80 mg PO DAILY 03/12/24 [History Last Taken 03/11/24] furosemide 20 mg tablet 20 mg PO DAILY 03/12/24 [History Last Taken 03/11/24] oxycodone 5 mg tablet 5 mg PO Q8H PRN pain 3 days #10 tabs 03/12/24 [Rx Last Taken Unknown] sennosides 8.6 mg-docusate sodium 50 mg tablet (Senna with Docusate Sodium) 2 tab-cap (2 x 8.6-50 mg) PO BID PRN constipation #30 tabs 03/12/24 [Rx Last Taken Unknown] warfarin 5 mg tablet 7.5 mg PO DAILY BLOOD THINNER 03/12/24 [History Last Taken 03/11/24] Allergy/AdvReac Type Severity Reaction Status Date / Time amiodarone AdvReac Intermediate It did not Verified 03/12/24 09:36 work, also bad dreams and neuropathy Family History Father , Age 57 Myocardial infarction CAD (coronary artery disease) ETOH abuseMother , Age 47, of bone cancer Bone cancerBrother , age 45, of AIDS AIDS (acquired immune deficiency syndrome) Surgical History (Updated 03/12/24 @ 13:29 by Niyah Esposito) H/O cervical spine surgery (01/2020) H/O coronary artery bypass surgery (11/26/98) History of cholecystectomy History of left heart catheterization (11/26/98) History of left hip hemiarthroplasty History of thoracic spinal fusion (12/30/18) Social History household members: none Smoking Status: Former smoker alcohol intake: current details: once a week substance use type: does not use Vital Signs Vital Signs Vital Signs: 03/14/2410:40 03/14/2414:00 03/14/2415:20 Temperature 98.3 F Temperature Source Oral Pulse Rate 80 72 Pulse Strength Normal (2+) Respiratory Rate 16 18 Respiratory Effort Respiratory Depth Respiratory Pattern Blood Pressure 126/74 H 148/101 H Blood Pressure Mean 91 116 Blood Pressure Source Monitor Monitor Blood Pressure Position Sitting Supine Blood Pressure Location Right Arm Right Arm Pulse Ox 94 96 Oxygen Delivery Method Room Air Room Air 03/14/2415:30 03/14/2415:40 03/14/2415:49 Temperature Temperature Source Pulse Rate 70 77 76 Pulse Strength Respiratory Rate 16 18 16 Respiratory Effort Respiratory Depth Respiratory Pattern Blood Pressure 170/77 H 182/80 H 161/79 H Blood Pressure Mean 108 114 106 Blood Pressure Source Monitor Monitor Monitor Blood Pressure Position Supine Supine Supine Blood Pressure Location Right Arm Right Arm Right Arm Pulse Ox 95 94 95 Oxygen Delivery Method Room Air Room Air Room Air 03/14/2421:00 03/14/2422:00 03/14/2423:06 Temperature 98.2 F Temperature Source Oral Pulse Rate 67 67 Pulse Strength Normal (2+) Respiratory Rate 15 Respiratory Effort Respiratory Depth Respiratory Pattern Blood Pressure 163/73 H 163/73 H Blood Pressure Mean 103 Blood Pressure Source Monitor Blood Pressure Position Sitting Blood Pressure Location Right Arm Pulse Ox 94 Oxygen Delivery Method Room Air 03/14/2420:00 03/15/2401:34 03/15/2404:00 Temperature 98.3 F Temperature Source Oral Pulse Rate 64 Pulse Strength Respiratory Rate 15 15 Respiratory Effort Normal Non-Labored Normal Non-Labored Respiratory Depth Normal Normal Respiratory Pattern Normal Normal Blood Pressure 141/67 H Blood Pressure Mean 91 Blood Pressure Source Blood Pressure Position Blood Pressure Location Pulse Ox 15 94 Oxygen Delivery Method Room Air Room Air Room Air 03/15/2408:28 03/15/2408:35 03/15/2408:54 Temperature Temperature Source Pulse Rate 68 Pulse Strength Normal (2+) Respiratory Rate Respiratory Effort Normal Non-Labored Respiratory Depth Normal Respiratory Pattern Normal Blood Pressure Blood Pressure Mean Blood Pressure Source Blood Pressure Position Blood Pressure Location Pulse Ox Oxygen Delivery Method Room Air 03/15/2408:20 Temperature 98.2 F Temperature Source Temporal Pulse Rate 68 Pulse Strength Respiratory Rate 18 Respiratory Effort Respiratory Depth Respiratory Pattern Blood Pressure 131/75 H Blood Pressure Mean 93 Blood Pressure Source Monitor Blood Pressure Position Semi-Fowlers Blood Pressure Location Right Arm Pulse Ox 95 Oxygen Delivery Method Room Air Weight Weight: 248 lb 11.185 oz Body Mass Index (BMI) 33.7 Physical Exam Narrative Examination the back shows midline paraspinal tenderness in lower lumbar spine. Lidocaine patch noticed. Neurologic evaluation of lower extremity shows grade 4 - ankle dorsiflexion on the left side, grade 3 EHL, all other muscle groups are 4+ in both lower extremities. Range of motion of the left hip is limited at baseline. Gait was not tested. Patient did walk with PT yesterday with walker. Medical Records Data Medical Nutrition Assessment Dietitian: Malnutrition Criteria Met Start: 03/13/24 11:08 Freq: Status: Active Protocol: Document 03/13/24 11:08 (Rec: 03/13/24 11:08 [id number]) Nutrition Malnutrition Evidence of Malnutrition Exists Yes Malnutrition (severe): Acute Illness/Injury Evidenced By Suboptimal Energy Intake ( Severe),Weight Loss (Severe) Clinical Problem Acute Disease or Injury Related Malnutrition Etiology severe acute malnutrition related to inadequate energy intake d/t debility, pain Signs/Symptoms as evidenced by unintentional 5% wt loss x 2 weeks, estimated PO intake meeting < 50% of estimated energy needs x 1 week Status Active Problem Recommendation Dietitian Recommendations/Changes regular diet; ok to continue ensure plus high protein TID as ordered until adequate PO intake/appetite is fully established Lab / Micro Data 03/15/24 06:53 03/15/24 06:53 Labs: Laboratory Results - last 24 hr 03/15/24 06:53: WBC 5.8, RBC 3.82 L, Hgb 11.5 L, Hct 34.1 L, MCV 89.3, MCH 30.1, MCHC 33.7, RDW Std Deviation 42.2, RDW Coeff of Dick 13.1, Plt Count 104 L, MPV 8.9, Immature Gran % (Auto) 0.200, Neut % (Auto) 65.3, Lymph % (Auto) 23.4, [place] % (Auto) 7.8, Eos % (Auto) 3.1, Baso % (Auto) 0.2, Absolute Neuts (auto) 3.8, Absolute Lymphs (auto) 1.36, Nucleated RBC % 0, Sodium 140, Potassium 4.0, Chloride 106, Carbon Dioxide 32.0, Anion Gap 2 L, BUN 14, Creatinine 0.56 L, Estim Creat Clear Calc 101.87, Est GFR (MDRD) Af Amer 183, Est GFR (MDRD) Non-Af 151, BUN/Creatinine Ratio 25.1 H, Glucose 109 H, Calcium 8.7 Imaging Radiology Impression Lumbar Spine MRI 03/14/24 10:43 IMPRESSION: 1. Chronic fractures of the T11 and L4 vertebral bodies. 2. Moderate L2-3 and severe L4-5 spinal stenosis as described above. 3. Multilevel neural foraminal narrowing. Electronically Signed: Miguel Orozco MD at 16:42 EDT , Assessment & Plan Assessment/Plan (1) Compression fracture of L4 vertebra: QUALIFIERS: Encounter type: sequela Qualified Code(s): S32.040S - Wedge compression fracture of fourth lumbar vertebra, sequela (2) Spinal stenosis of lumbar region with neurogenic claudication: PLAN: Plan I reviewed patient's recumbent x-rays done in the ER 3 days ago, MRI lumbar spine done yesterday. These show chronic L4 compression wedge deformity. No obvious listhesis noticed. MRI shows severe critical L4-5 stenosis central as well as foraminal, severe facet hypertrophy. Screening images of cervical thoracic spine show no obvious cord compression. I explained to him the imaging findings in detail. Patient has severe L4-5 stenosis below his wedge compression deformity of L4. This is caused him severe worsening neurogenic claudication and he is progressively finding himself unable to walk distances. His most recent episode which led to this admission has made him severely dependent on others. I explained to him treatment options which include continued nonoperative treat measures versus surgery. Patient has had progressive loss of function with limited ambulation and periods of time where he would not be able to walk. I recommended surgery to help halt the progression of his functional decline. Surgical options were discussed. These could be decompression versus decompression with fusion. I would like him to obtain an upright x-ray AP and lateral along with a CT scan of the lumbar spine to evaluate for instability and extent of facet hypertrophy for surgical planning. I explained to him the timing of surgery would depend on multiple factors including his ability to stop Coumadin ahead of time. If he is able to be cleared PT for discharge to home by physical therapy, it would be ideal to medically optimize him for surgery in the next few weeks. If he is not able to clear PT and has to be discharged to rehab, I would prefer doing the surgery during this admission to minimize transfers. I will reach out to physical therapy, hospitalist regarding plan for discharge and stopping Coumadin and cardiac optimization for surgery. I will follow-up with him once the CT and x-rays are performed today. Charges/Coding Visit Charges Inpatient E&M: 62143 Init Hosp L3 03/15/24 0944 <Electronically signed by Pasquale Blair MD> Cosigner Signature (if applicable): CC: Dr. Estiven Mcmullen DO; Dr. Clark Johnson MD; Dr. Koby Pascal MD; Dr. James Pisano MD~ Signed ADDENDUM by Dr. Pasquale Blair MD on 03/15/24 at 1614 Addendum I evaluated the CT and upright x-rays done today. Severe facet hypertrophy noticed. No obvious vacuum phenomenon in the disc or facet joint noticed. Anterior osteophytosis at L3-4 and L4-5 seen. I saw the patient again this afternoon. Explained to the patient the imaging findings. I explained to him that he will be able to get by with just a decompression surgery, but I would like to keep the possibility of fusion depending on the extent of decompression that he might require. We will schedule him for L4-5 laminectomy, possible L3-5 posterior instrumented fusion through an open approach. Preferably, I would like him to be off Coumadin at least for a week. If the patient continues to deteriorate and is not able to perform with PT to allow discharge home, we may consider surgery at an earlier timeframe within this admission with the knowledge that he may be at high risk for hematoma complications. Patient understands. He will need cardiology clearance and anesthesia review prior to surgery. All risk benefits and alternatives of the surgery were discussed in detail. The risks include but are not limited to infection, bleeding, injury to nerves and vessels, foot drop, worsening weakness, instability, need for further surgery, DVT, pulmonary embolism, hardware failure, pseudoarthrosis, pneumonia, atelectasis, cardiopulmonary event, stroke, . Patient understands and agrees to proceed with surgery. Consent was signed. On another note, there was a discussion about whether his current pathology may be related to the work-related injury in December 2018. This work-related injury was a fall down the stairs which led to a thoracic burst fracture which was treated with posterior instrumented fusion. He was not told whether he had a lumbar fracture around this time. Looking back at his imaging available with the [facility], there is an abdominal CT scan from 2018 which did not show the L4 fracture. It is a possibility that he may have sustained L4 fracture during this work-related injury in 2019. I explained that this to the patient. At this time because of his critical stenosis L4-5, it is important for us to decompress this for improving his functional mobility. Patient was in agreement.
[2024-03-24] MEDS: Dexamethasone IV Preserv Free 10 MG/ML VIAL IV (09:50)
--- NOTE | 2024-03-24 10:21 | OP.PCM_ITS ---
Report of Operation Date of Procedure: 03/24/24 Description of Surgical Findings:: Preoperative diagnosis: L4-5 severe stenosis, prior L4 compression fracture Postoperative diagnosis: L4-5 severe stenosis, prior L4 compression fracture Name of procedure: L4-5 laminectomy with partial facetectomy and foraminotomy CPT 60954 Attending Surgeon: Dr. Pasquale Blair Running Rigger surgeon Dr. Ted Rm Estimated blood loss: 100 mL Anesthesia: General Indications: Patient is a 78-year-old gentleman who presented with low back pain and severe weakness and numbness in left worse than right lower extremity . MRI revealed prior L4 compression deformity with severe critical L4- [address] showed the L4 fracture to be an old healed fracture with significant height loss with some anterior osteophytes trying to bridge above and below L4. All options of treatment were discussed which included continued nonoperative treatment measures like rest physical therapy, injections. After prolonged nonsurgical treatment, patient requested surgical intervention for laminectomy decompression with possible fusion. All risks and benefits associated with the procedure were explained to the patient. The risks include but are not limited to infection, bleeding, injury to nerves and vessels, persistent paresthesia, incidental dural tear, recurrent disc herniation, spinal instability and need for fusion or other procedures in future, persistent pain, persistent weakness and numbness, etc. Procedure: The patient was identified in the preoperative holding suite using Unique patient identifiers. Skin was marked, consent was reviewed, and all questions were answered. The patient was then brought back to the operative room. A surgical timeout was performed to make sure correct procedure was being done on the correct patient and all operative room staff were on the same page. General endotracheal anesthesia was then given to the patient. The patient was then turned prone onto a Rubén table. The back was prepped and draped in usual fashion. Preoperative antibiotic was given. A final timeout was then again done just before starting the procedure. An 18-gauge spinal needle was inserted and was confirmed on C-arm lateral view to be at the L4-5 level. An incision was then carried out approximately 2 inch length in the midline. Bovie was utilized to dissect through the subcutaneous tissue up to the fascia. The fascia was bovied at the spinous process. Subperiosteal dissection was carried out along both sides of the spinous process and the lamina. This dissection was stopped at the level of the medial capsule of the facet joint. Lateral edge of the pars was also identified. A Mehrdad clamp was then placed on a spinous process close to the interspinous ligament and a C-arm lateral view was repeated. The level was confirmed to be the L4-5 interspace. A Mejia retractor of appropriate depth was then placed to provide retraction throughout the remainder of the surgery. A bone scalpel was then utilized to score the laminectomy laterally on both sides and superiorly. Care was taken to preserve at least 1 cm of bone from the lateral border of the pars. Score was also made over the superior L5 lamina. Bone scalpel was then used to perform a the cuts along this course and the pieces of lamina were removed with a single piece utilizing osteotome to crack it open followed by upgoing curettes to safely remove it keeping the flavum intact. Kerrison rongeurs was utilized to complete the lami nectomy. The ligamentum flavum was then removed with the help of Kerrison rongeurs. Ligamentum flavum in the lateral recess was then removed with Kerrison rongeur. The dura and traversing nerve root were then identified with the help of a [place] #4. Superior L5 lamina was carefully removed with Kerrison in order to open up the L5 foramina. Superior articular process of L5 was identified and its edge with the flap was carefully with the help of curettes. Medial partial facetectomy was performed. Kerrisons were also used to do foraminotomy at both L4 and L5 foramina. [place] was utilized to make sure the foraminal provide open no residual stenosis was identified. Once adequate decompression was obtained, we utilized clamps to try to move the L4-5 facet joint. No significant movement was observed in the facet joints and this was felt to be stable. A decision was made to avoid the fusion at this stage. Hemostasis was achieved using Floseal and cotton patties. Thorough irrigation was given throughout the subcutaneous and muscular layers. 10 mg of preservative-free dexamethasone was then sprinkled over the dura and traversing nerve roots on both sides. A small piece of Gelfoam was then placed over the bony laminectomy window. The Mejia retractor was then removed. And closure was done in layers, 0 Vicryl for the deep fascia, 2-0 Vicryl for subcutaneous tissue, and 4-0 Monocryl for the skin. The deep fascial layer was closed in a watertight fashion with interrupted 0 Vicryl. The skin closure was done with victoria. 4 x 4 gauze was then placed over the wound covered with Tegaderm. The patient was then turned supine onto a hospital bed. The patient was extubated and taken to PACU in stable condition. The patient tolerated the procedure well and no complications occurred. Estimated blood loss for the entire surgery was 100 mL. No instrumentation was utilized in this case. No dural tear was identified in this case. I was present for the entirety of the case and performed the surgery myself. Surgeon: Pasquale Blair automotive customer experience advisor: Ted Rm Admit VTE Documentation VTE Mechan Device Prophylaxis: SCD's Procedures Musculoskeletal [id number]: Other Procedure See Report
[2024-03-24] MEDS: Bacitracin 500 UNITS/GM PACKET (10:38)
[2024-03-24] MEDS: Ensure Surgery 237 ML LIQUID PO (13:29)
[2024-03-24] MEDS: Acetaminophen 500 MG Tablet 1000 MG PO ×2 (13:29→20:57)
[2024-03-24] MEDS: Ketorolac 15 MG/ML Vial IV ×2 (13:29→20:56)
--- NOTE | 2024-03-24 14:00 | PCM.CONS.GEN ---
Assessment & Plan Assessment/Plan (1) Spinal stenosis of lumbar region with neurogenic claudication: PLAN: Plan This is 78-year-old gentleman is as consultation for perioperative management. 1. Acute on chronic L4-5 severe stenosis with prior L4 compression fracture: Patient is being admitted to [facility]. Patient had elective L4-5 laminectomy with partial facetectomy and foraminotomy on 03/24/2024. Pain controlled. Bowel and bladder care. Incentive spirometry. Hold warfarin today as patient just had surgery. Supportive management with antiemetics. IV fluid. 2. CAD status post two-vessel CABG, chronic A-fib on warfarin: Patient on metoprolol 50 mg twice daily, potassium supplement, and atorvastatin. Continued 3. Chronic HFpEF: Patient on furosemide 20 mg daily, hold today continue from tomorrow a.m. 4. Hypertension: Blood pressure is controlled. 5. Prostate cancer on Xtandi status post radiation beads: No acute issues. Patient does not have any obstructive or irritative lower urinary tract symptoms. On doxazosin and terazosin, similar mechanism of action, both selective alpha 1 edith. 6. Mild anxiety: On citalopram hold it today 7. Dyslipidemia on atorvastatin continued DVT prophylaxis as per discretion of orthopedic surgeon. Patient on warfarin for chronic A-fib currently on hold. HPI Consult Data Date of Consult: 03/24/24 Attending Care Provider: Perioperative management after lumbar decompressive surgery HPI Narrative HPI Narrative: MEENAKSHI NI, is a 78 M was admitted electively for lumbar decompressive surgery. Patient has acute on chronic back pain over the decades. Patient had thoracic posterior instrumented fusion 5 years ago for fracture with radiculopathy. Patient has severe difficulty walking over the years and had to squat down while walking in order to walk longer. [place] was a lower back pain with radiation towards left worse than the right buttock region. Numbness on the left leg and foot compared to the right which worsens on standing and walking. Past medical history chronic A-fib on warfarin. Patient has prostate cancer status post seedings. No acute bowel or bladder incontinence. Denies any numbness around perianal region. Patient had L4-5 severe stenosis prior L4 compression fracture. Patient had elective L4-5 laminectomy with partial facetectomy and foraminotomy [facility] Medical History Preop testing History of Clostridium difficile infection Wears glasses Walker as ambulation aid Arthritis Prostate disease High cholesterol Former smoker Lymph edema History of stress test History of echocardiogram Cardiology follow-up encounter History of atrial fibrillation Diverticulosis Cancer Kidney stones CPAP (continuous positive airway pressure) dependence Sleep apnea Closed wedge compression fracture of T11 vertebra Debility Venous insufficiency (chronic) (peripheral) Onycholysis Ankle fracture, left Fall Atrial fibrillation Closed fracture of left hip Closed left humeral fracture Longstanding persistent atrial fibrillation Essential hypertension Former tobacco use Sepsis History of Clostridium difficile infection (01/09/19) Traumatic hemothorax (12/30/18) History of subdural hematoma (post traumatic) (12/27/18) Fracture of ninth thoracic vertebra (12/27/18) Hyperlipidemia Atherosclerotic heart disease of [place] coronary artery without angina pectoris 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) use of anticoagulants Home Medications ?Medication ?Instructions ?Recorded ?Last Taken ?Type potassium chloride 20 mEq 20 meq PO DAILY supplement 12/03/18 03/11/24 History tablet,extended release cetirizine 10 mg capsule 10 mg PO DAILY Allergy 12/27/18 03/16/24 History metoprolol tartrate 50 mg tablet 50 mg PO BID bp 03/15/19 03/24/24 05:30 History cholecalciferol (vitamin D3) 1,250 1,000 unit PO DAILY supplement 10/29/20 03/16/24 History mcg (50,000 unit) capsule citalopram 10 mg tablet 10 mg PO QHS depression 12/01/22 03/11/24 History terazosin 10 mg capsule 10 mg PO QPM BPH 12/01/22 03/11/24 History enzalutamide 40 mg tablet (Xtandi) 160 mg (4 x 40 mg) PO QPM Prostate 12/16/22 03/15/24 Rx #0 tabs fluticasone propionate 50 2 spray NASAL DAILY Allergies #0 12/16/22 03/16/24 Rx mcg/actuation nasal grams spray,suspension lidocaine 5 % topical patch 1 patch topical DAILY Pain 30 days 12/16/22 Unknown Rx #30 ea acetaminophen 650 mg 650 mg PO Q8H PRN pain 03/12/24 03/24/24 05:30 History tablet,extended release (8 Hour Pain Reliever) atorvastatin 80 mg tablet 80 mg PO DAILY Cholesterol 03/12/24 03/11/24 History furosemide 20 mg tablet 20 mg PO DAILY Edema 03/12/24 03/11/24 History oxycodone 5 mg tablet 5 mg PO Q8H PRN pain 3 days #10 03/12/24 Unknown Rx tabs sennosides 8.6 mg-docusate sodium 2 tab-cap (2 x 8.6-50 mg) PO BID 03/12/24 Unknown Rx 50 mg tablet (Senna with Docusate PRN constipation #30 tabs Sodium) warfarin 5 mg tablet 7.5 mg PO DAILY BLOOD THINNER 03/12/24 03/11/24 History ondansetron 4 mg disintegrating 4 mg PO Q8H PRN nausea and 03/15/24 03/24/24 05:30 Rx tablet vomiting #10 tabs doxazosin 4 mg tablet (Cardura) 4 mg PO DAILY 03/21/24 Unknown History Allergy/AdvReac Type Severity Reaction Status Date / Time amiodarone AdvReac Intermediate It did not Verified 03/24/24 06:05 work, also bad dreams and neuropathy Family History Father , Age 57 Myocardial infarction CAD (coronary artery disease) ETOH abuse Mother , Age 47, of bone cancer Bone cancer Brother , age 45, of AIDS AIDS (acquired immune deficiency syndrome) Surgical History History of colonoscopy History of cholecystectomy History of left hip hemiarthroplasty H/O cervical spine surgery (01/2020) H/O coronary artery bypass surgery (11/26/98) History of thoracic spinal fusion (12/30/18) History of left heart catheterization (11/26/98) Social History household members: none Smoking Status: Former smoker alcohol intake: current details: once a week substance use type: does not use ROS ROS Narrative Constitutional: Reports fatigue and weakness. No fever. HEENT: Reports systems reviewed and no addt'l complaints, except as documented Respiratory/Chest: No acute shortness of breath or respiratory distress or wheezing. CVS: No chest pressure or tightness. History of chronic A-fib. Gastrointestinal: Denies coffee ground emesis, hematemesis or vomiting Genitourinary: History of prostate cancer. Denies burning urination or new urinary tract symptoms Musculoskeletal: Chronic back pain with numbness and radiculopathy as described in HPI. Denies acute joint pain or limited range of motion. Neurologic: Denies seizure-like symptoms. skin: No ulcer. No rash Endocrinology: Reports systems reviewed and no addt'l complaints, except as documented Hematologic/Lymphatic: Reports systems reviewed and no addt'l complaints, except as documented Rest 14 ROS are negative except as mentioned in HPI Physical Exam Narrative General: Alert, Oriented x3, Cooperative HEENT: Atraumatic, PERRLA, EOMI, Normocephalic Oral: No Gingival or Mucosal Lesions/ Ulcerations Neck: Supple, No JVD, Negative Carotid Bruits Chest wall/Lungs: Air entry diminished in bilateral lung bases. No crepitation/rhonchi Cardiovascular: Irregular rate and rhythm. CABG scar. No M/G/R Abdomen: Bowel Sounds Present, Soft, Non Tender, Non-Distended : No dysuria. No renal angle tenderness. No suprapubic tenderness. Extremities: No edema, Capillary Refill Less than 3 Seconds Skin: No rashes, No breakdown Musculoskeletal/spine: Tenderness over perioperative region. Surgical dressing is dry. No acute tenderness to peripheral joints. Neurological: Cranial nerves II-XII grossly intact, DTR 2+/4. Chronic L4-5 radiculopathy worse on the left buttock. Psych/Mental Status: Normal Affect, Appropriate. Lab / Micro Data Labs: Laboratory Results - last 24 hr 03/24/24 06:09: POC Glucose 96 03/24/24 06:24: POC PT 13.3, INR 1.2 Micro: Microbiology 03/21/24 15:50 Swab (Method) Nasal Screen MRSA/MSSA - Final Imaging Radiology Impression Spine X-Ray 03/24/24 06:30 IMPRESSION: Fluoroscopic services provided for laminectomy at the L4-L5 level. Electronically Signed: Benjie Lieberman MD at 10:44 EDT , Charges/Coding Visit Charges Office Visits / Consults: [id number] IP Consult L4
--- NOTE | 2024-03-24 14:06 | CASEMGMT ---
Social Work Pt is here from TCU, it is anticipated pt will return when medically ready and new precert attained. SW attempted to check in w/pt to confirm plan but he is sleeping at present. SW will follow up w/pt again. TYSHAWN Powers
[2024-03-24] MEDS: Methocarbamol 500 MG Tablet 1000 MG PO ×2 (16:49→20:56)
--- NOTE | 2024-03-24 17:16 | NURSING ---
GAVE CAREGIVER DARSHAN EUGENE
[2024-03-24] MEDS: 0.9% NaCl Peripheral Flush Adult/Peds IV (18:15)
[2024-03-24] MEDS: ENZALUTAMIDE 40 MG TABLET 160 MG PO (20:54)
[2024-03-24] MEDS: Doxazosin 4 MG Tablet 8 MG PO (20:54)
[2024-03-24] MEDS: Metoprolol Tartrate 50 MG Tablet PO (20:55)
[2024-03-24] MEDS: Senna/Docusate Sodium 1 Tablet 2 TABLET PO (20:56)
[2024-03-25] VITALS (10 sets, daily range): BP systolic 83–124; BP diastolic 47–66; PULSE 77–91; RESP 18; TEMP 36.3–36.9; O2SAT 93–98
[2024-03-25] MEDS: Ondansetron 4 MG/2 ML Vial IV (00:57)
[2024-03-25] MEDS: Acetaminophen 500 MG Tablet 1000 MG PO ×3 (04:41→21:48)
[2024-03-25] MEDS: Ketorolac 15 MG/ML Vial IV (04:42)
[2024-03-25] MEDS: Nystatin Powder 15gm Bottle 1 APPLIC TOPICAL ×2 (04:42→21:51)
[2024-03-25 04:59] LABS: Hematocrit 35.5 % (40-54); Hemoglobin 11.8 g/dL (13.0-16.5); Mean Corp Hgb Conc 33.2 g/dL (32-36); Mean Corpuscular Hgb 30.3 pg (27.0-32.0); Mean Platelet Vol. 9.3 fl (6.2-12.0); Platelet Count 158 K/mm3 (150-450); RBC Distribution Width CV 13.2 % (11.6-14.6); RBC Distribution Width SD 43.3 fl (35.1-43.9); White Blood Count 12.2 K/mm3 (4.4-11.0)
[2024-03-25 05:34] LABS: Anion Gap 6 (5-15); BUN 24 mg/dL (7-18); BUN/Creat Ratio 32.8 RATIO (10-20); Calcium,Total 8.6 mg/dL (8.5-10.1); Chloride 106 mmol/L (98-107); Creatinine, Serum 0.73 mg/dL (0.70-1.30); EST Glomerular Filtration Rate 111 mL/min (>60); Est Glom Filt Rate - Afr Amer 134 mL/min (>60); Estimated Creatinine Clearance 104.59 ml/min; Glucose 95 mg/dL (74-106); Potassium 4.3 mmol/L (3.5-5.1); Sodium Level 137 mmol/L (136-145)
[2024-03-25] MEDS: Lactated Ringers 1,000 ML 999 ML IV (08:57)
[2024-03-25] MEDS: 0.9% NaCl Peripheral Flush Adult/Peds IV (08:57)
[2024-03-25] MEDS: Lactated Ringers 1,000 ML 75 ML IV (08:58)
[2024-03-25] MEDS: Fluticasone 0.05% 1 SPRAY NASAL.SRY 2 SPRAY NASAL (08:58)
[2024-03-25] MEDS: Meloxicam 15 MG Tablet PO (08:59)
[2024-03-25] MEDS: Potassium Chloride Oral Tablet 20 MEQ PO (08:59)
[2024-03-25] MEDS: Loratadine 10 MG Tablet PO (08:59)
[2024-03-25] MEDS: Cholecalciferol (VIT D3) 25 MCG TABLET (1,000 UNITS) PO (08:59)
[2024-03-25] MEDS: Atorvastatin Calcium 80 MG Tablet PO (08:59)
--- NOTE | 2024-03-25 09:08 | CASEMGMT ---
Addendum entered by Nora Greenwood 03/25/24 12:09: Social Work SW spoke w/pt's surgeon, he is inquiring if pt may be able to go home rather than TCU as pt walked 180 feet with therapy. SW met w/pt in room, spoke w/him again about options at discharge. Pt states he would actually like to go home, and is open to home health. Pt told SW he walked 180 feet with therapy yesterday and his back feels great. He states his hip is bothering him but this is not new. Pt states would prefer [facility] as he has had them before, so at this time a list of home health care agencies is not needed. SW explained will make the referral to and they can follow up. SW let Krista know, she will look in to [facility] for pt. TYSHAWN Powers Original Note: Social Work SW met w/pt, confirmed plan is to return to TCU when ready and precert attained. Pt does not need a SNF list at this time as his plan is to return to TCU. SW did let pt know it is anticipated pt will be here through the weekend, pt states he was expecting this. SW spoke w/Georgette in TCU yesterday, she will start precert when appropriate and pt is medically stable. TYSHAWN Powers
--- NOTE | 2024-03-25 10:46 | PCM.PN.ORT ---
Subjective Subjective Postop day 1 status post L4-5 laminectomy. Patient notices significant difference in lower extremity numbness and heaviness and has been able to walk with PT. Denies any significant back pain. He does have some left buttock pain. Objective Data Objective Data Vital Signs: Vital Signs Temp Pulse Resp BP Pulse Ox O2 Del Method O2 Flow Rate 97.8 F 82 18 83/50 L 98 Room Air 2 03/25/24 08:19 03/25/24 08:19 03/25/24 08:19 03/25/24 08:19 03/25/24 08:19 03/25/24 08:19 03/24/24 16:33 Oxygen Flow Rate (L/min) 2 Oxygen Delivery Method Room Air Weight: 262 lb 3.2 oz Body Mass Index (BMI) 35.5 Intake & Output: Intake and Output for Last 24 Hours 03/23/24 03/24/24 03/25/24 23:59 23:59 23:59 Intake Total 2472 / 2947 853.5 / 853.5 Output Total 250 / 600 350 / 350 Balance 2222 / 2347 503.5 / 503.5 Lab / Micro Data 03/25/24 03:59 03/25/24 03:59 Labs: Laboratory Results - last 24 hr 03/25/24 03:59: WBC 12.2 H, RBC 3.90 L, Hgb 11.8 L, Hct 35.5 L, MCV 91.0, MCH 30.3, MCHC 33.2, RDW Std Deviation 43.3, RDW Coeff of Dick 13.2, Plt Count 158, MPV 9.3, Sodium 137, Potassium 4.3, Chloride 106, Carbon Dioxide 25.0, Anion Gap 6, BUN 24 H, Creatinine 0.73, Estim Creat Clear Calc 104.59, Est GFR (MDRD) Af Amer 134, Est GFR (MDRD) Non-Af 111, BUN/Creatinine Ratio 32.8 H, Glucose 95, Calcium 8.6 Micro: Microbiology 03/21/24 15:50 Swab (Method) Nasal Screen MRSA/MSSA - Final Radiography Diagnostic Testing: Radiology Impression Spine X-Ray 03/24/24 06:30 IMPRESSION: Fluoroscopic services provided for laminectomy at the L4-L5 level. Electronically Signed: Benjie Lieberman MD at 10:44 EDT , Physical Exam Narrative Dressing CDI. Neurologic evaluation lower extremity shows baseline weakness in both lower extremities which is graded 4+ in the right lower extremity, and 4 - on the left. Const alert and oriented x3 Assessment & Plan Assessment/Plan (1) Status post lumbar laminectomy: PLAN: Plan Postop day 1 status post L4-5 laminectomy. Patient tolerated surgery well. PT OT mobilization. Will need follow-up with me in 2 weeks for staple removal. Okay for discharge from spine surgery perspective. Discharge to home versus rehab based on PT recommendations. Will also need clearance from hospitalist for discharge due to mild hypotension this morning.
--- NOTE | 2024-03-25 11:20 | CASEMGMT ---
Met with patient to complete HOLLIS form. HOLLIS form explained to?patient who voiced understanding and signed form. Original form placed in pt?s chart and copy provided to?patient. Milagro Izaguirre, Discharge Planning Asst
--- NOTE | 2024-03-25 11:44 | PCM.PN.HOSP ---
Reason for Visit Reason for Visit: Diagnoses Spinal stenosis, lumbar region with neurogenic claudication (03/24/24) Encounter for other preprocedural examination (03/24/24) Other specified postprocedural states (03/24/24) Objective Data Objective Data Vital Signs: Vital Signs Temp Pulse Resp BP Pulse Ox O2 Del Method O2 Flow Rate 97.8 F 80 18 101/54 L 98 Room Air 2 03/25/24 08:19 03/25/24 11:02 03/25/24 08:19 03/25/24 11:02 03/25/24 08:19 03/25/24 08:19 03/24/24 16:33 Oxygen Flow Rate (L/min) 2 Oxygen Delivery Method Room Air Weight: 262 lb 3.2 oz Body Mass Index (BMI) 35.5 Intake & Output: Intake and Output for Last 24 Hours 03/23/24 03/24/24 03/25/24 23:59 23:59 23:59 Intake Total 2472 / 2947 1853.5 / 1853.5 Output Total 250 / 600 350 / 350 Balance 2222 / 2347 1503.5 / 1503.5 Lab / Micro Data 03/25/24 03:59 03/25/24 03:59 Labs: Laboratory Results - last 24 hr 03/25/24 03:59: WBC 12.2 H, RBC 3.90 L, Hgb 11.8 L, Hct 35.5 L, MCV 91.0, MCH 30.3, MCHC 33.2, RDW Std Deviation 43.3, RDW Coeff of Dick 13.2, Plt Count 158, MPV 9.3, Sodium 137, Potassium 4.3, Chloride 106, Carbon Dioxide 25.0, Anion Gap 6, BUN 24 H, Creatinine 0.73, Estim Creat Clear Calc 104.59, Est GFR (MDRD) Af Amer 134, Est GFR (MDRD) Non-Af 111, BUN/Creatinine Ratio 32.8 H, Glucose 95, Calcium 8.6 Micro: Microbiology 03/21/24 15:50 Swab (Method) Nasal Screen MRSA/MSSA - Final Radiography Diagnostic Testing: Radiology Impression Spine X-Ray 03/24/24 06:30 IMPRESSION: Fluoroscopic services provided for laminectomy at the L4-L5 level. Electronically Signed: eBnjie Lieberman MD at 10:44 EDT , Physical Exam Narrative General: Alert, Oriented x3, Cooperative HEENT: Atraumatic, PERRLA, EOMI, Normocephalic Oral: No Gingival or Mucosal Lesions/ Ulcerations Neck: Supple, No JVD, Negative Carotid Bruits Chest wall/Lungs: Air entry diminished in bilateral lung bases. No crepitation/rhonchi Cardiovascular: Irregular rate and rhythm. CABG scar. No M/G/R Abdomen: Bowel Sounds Present, Soft, Non Tender, Non-Distended : No dysuria. No renal angle tenderness. No suprapubic tenderness. Extremities: No edema, Capillary Refill Less than 3 Seconds Skin: No rashes, No breakdown Musculoskeletal/spine: Tenderness over perioperative region. Surgical dressing is dry. No acute tenderness to peripheral joints. Neurological: Cranial nerves II-XII grossly intact, DTR 2+/4. Chronic L4-5 radiculopathy worse on the left buttock. Psych/Mental Status: Normal Affect, Appropriate. Assessment & Plan Assessment/Plan (1) Spinal stenosis of lumbar region with neurogenic claudication: PLAN: Plan This is 78-year-old gentleman is as consultation for perioperative management. 1. Acute on chronic L4-5 severe stenosis with prior L4 compression fracture: Patient is being admitted to [facility]. Patient had elective L4-5 laminectomy with partial facetectomy and foraminotomy on 03/24/2024. Pain controlled. Bowel and bladder care. Incentive spirometry. Hold warfarin today as patient just had surgery. Supportive management with antiemetics. IV fluid. 03/25: Hypotension most likely distributive from multiple medications including Cardura, muscle relaxant: Blood pressure was low 83/50 in the morning. 1 L of Ringer lactate given. And then continue 75 mill per hour. Blood pressure responded 101/54. Avoid antihypertensive medication. Has not moved bowels. 2. CAD status post two-vessel CABG, chronic A-fib on warfarin: Patient on metoprolol 50 mg twice daily, potassium supplement, and atorvastatin. Continued 03/25: No chest pain or shortness of breath. No dizziness or lightheadedness. 3. Chronic HFpEF: Patient on furosemide 20 mg daily, hold today continue from tomorrow a.m. 4. Hypertension: Blood pressure is controlled. 5. Prostate cancer on Xtandi status post radiation beads: No acute issues. Patient does not have any obstructive or irritative lower urinary tract symptoms. On doxazosin and terazosin, similar mechanism of action, both selective alpha 1 edith. 6. Mild anxiety: On citalopram hold it today 7. Dyslipidemia on atorvastatin continued DVT prophylaxis as per discretion of orthopedic surgeon. Patient on warfarin for chronic A-fib currently on hold. Charges/Coding Visit Charges Inpatient E&M: 34086 Subs Hosp L2
[2024-03-25 13:51] LABS: International Normalized Ratio 1.3; Prothrombin Time (Protime)PT. 15.7 SECONDS (11.7-14.9)
--- NOTE | 2024-03-25 14:10 | CASEMGMT ---
Addendum entered by Krista Garcia 03/25/24 15:28: MARIAJOSE PITT into pt room, he is aware that [facility] will be out to his home for PT and OT on Thursday. He denies any homegoing needs otherwise. He states he has all the needed DME. Updated hospitalist and on pt dc plan. Addendum entered by Krista Garcia 03/25/24 15:08: Received acceptance from [facility] with SOC on Thursday. Green sheet on chart. Addendum entered by Krista Garcia 03/25/24 15:03: Referral to [facility] updated with PT and OT order at this time. Original Note: MARIAJOSE PITT notified pt wants [facility] as he had them in the past. MARIAJOSE PITT requested dc assistant professor of forestry send referral to [facility]. It has been confirmed that they have serviced pt in the past.
--- NOTE | 2024-03-25 14:16 | CASEMGMT ---
Discharge Planning Referral sent to [facility] via [facility]. Milagro Izaguirre, Discharge Planning Asst.
[2024-03-25] MEDS: Methocarbamol 500 MG Tablet PO ×3 (14:24→21:49)
--- NOTE | 2024-03-25 15:40 | CASEMGMT ---
Social Work Pt is going to go home w/HHC, SW let Georgette in TCU know. TYSHAWN Powers
[2024-03-25] MEDS: ENZALUTAMIDE 40 MG TABLET 160 MG PO (20:28)
[2024-03-25] MEDS: Metoprolol Tartrate 25 MG Tablet PO (21:49)
[2024-03-25] MEDS: Doxazosin 4 MG Tablet PO (21:51)
[2024-03-26] MEDS: Lactated Ringers 1,000 ML 75 ML IV (00:21)
[2024-03-26] MEDS: Ondansetron 4 MG/2 ML Vial IV (00:51)
[2024-03-26 04:35] VITALS: BP 128/69; PULSE 80; RESP 16; TEMP 36.5; O2SAT 98
[2024-03-26] MEDS: Nystatin Powder 15gm Bottle 1 APPLIC TOPICAL (05:10)
[2024-03-26] MEDS: Acetaminophen 500 MG Tablet 1000 MG PO ×2 (05:11→13:48)
[2024-03-26 06:26] LABS: Absolute Lymphocyte Count 0.66 X10^3/uL (0.83-4.51); Absolute Neutrophil Count 6.6 X10^3/uL (2.0-7.7); Basophil# 0.01 X10^3/uL; Basophil% 0.1 % (0-1); Eosinophil# 0.54 X10^3/uL; Eosinophils% 6.4 % (0-5); Hematocrit 31.8 % (40-54); Hemoglobin 10.2 g/dL (13.0-16.5); Lymphocyte # 0.66 X10^3/ul (0.83-4.51); Lymphocyte % 7.8 % (19-41); Mean Corp Hgb Conc 32.1 g/dL (32-36); Mean Corpuscular Hgb 29.6 pg (27.0-32.0); Mean Corpuscular Volume 92.2 fL (80-94); Mean Platelet Vol. 9.1 fl (6.2-12.0); Monocyte# 0.57 X10^3/uL; Monocyte% 6.8 % (0-10); NRBC Flagged by Analyzer 0 % (0-5); Neutrophil # 6.59 X10^3/uL (2.7-7.7); Neutrophil % 78.4 % (47-70); Platelet Count 126 K/mm3 (150-450); RBC Distribution Width CV 13.3 % (11.6-14.6); RBC Distribution Width SD 45.1 fl (35.1-43.9); Red Blood Count 3.45 M/mm3 (4.6-6.2); White Blood Count 8.4 K/mm3 (4.4-11.0)
[2024-03-26 06:45] LABS: International Normalized Ratio 1.2; Prothrombin Time (Protime)PT. 15.5 SECONDS (11.7-14.9)
[2024-03-26 06:51] LABS: Anion Gap 3 (5-15); BUN 18 mg/dL (7-18); BUN/Creat Ratio 31.6 RATIO (10-20); Calcium,Total 8.1 mg/dL (8.5-10.1); Chloride 108 mmol/L (98-107); Creatinine, Serum 0.57 mg/dL (0.70-1.30); EST Glomerular Filtration Rate 148 mL/min (>60); Est Glom Filt Rate - Afr Amer 178 mL/min (>60); Estimated Creatinine Clearance 104.59 ml/min; Glucose 101 mg/dL (74-106); Potassium 3.8 mmol/L (3.5-5.1); Sodium Level 139 mmol/L (136-145)
--- NOTE | 2024-03-26 09:52 | PN.HOSP_ITS ---
Reason for Visit Reason for Visit: Diagnoses Spinal stenosis, lumbar region with neurogenic claudication (03/24/24) Encounter for other preprocedural examination (03/24/24) Other specified postprocedural states (03/24/24) Objective Data Objective Data Vital Signs: Vital Signs Temp Pulse Resp BP Pulse Ox O2 Del Method O2 Flow Rate 97.7 F L 80 16 128/69 H 98 Nasal Cannula 2 03/26/24 04:35 03/26/24 04:35 03/26/24 04:35 03/26/24 04:35 03/26/24 04:35 03/26/24 04:35 03/26/24 04:35 Oxygen Flow Rate (L/min) 2 Oxygen Delivery Method Nasal Cannula Weight: 262 lb 3.2 oz Body Mass Index (BMI) 35.5 Intake & Output: Intake and Output for Last 24 Hours 03/24/24 03/25/24 03/26/24 23:59 23:59 23:59 Intake Total 2472 / 2947 2843.5 / 2843.5 Output Total 250 / 600 1100 / 1100 500 / 500 Balance 2222 / 2347 1743.5 / 1743.5 -500 / -500 Lab / Micro Data 03/26/24 05:35 03/26/24 05:35 Labs: Laboratory Results - last 24 hr 03/25/24 12:35: PT 15.7 H, INR 1.3 03/26/24 05:35: WBC 8.4, RBC 3.45 L, Hgb 10.2 L, Hct 31.8 L, MCV 92.2, MCH 29.6, MCHC 32.1, RDW Std Deviation 45.1 H, RDW Coeff of Dick 13.3, Plt Count 126 L, MPV 9.1, Immature Gran % (Auto) 0.500, Neut % (Auto) 78.4 H, Lymph % (Auto) 7.8 L, [place] % (Auto) 6.8, Eos % (Auto) 6.4 H, Baso % (Auto) 0.1, Absolute Neuts (auto) 6.6, Absolute Lymphs (auto) 0.66 L, Nucleated RBC % 0, PT 15.5 H, INR 1.2, Sodium 139, Potassium 3.8, Chloride 108 H, Carbon Dioxide 28.0, Anion Gap 3 L, BUN 18, Creatinine 0.57 L, Estim Creat Clear Calc 104.59, Est GFR (MDRD) Af Amer 178, Est GFR (MDRD) Non-Af 148, BUN/Creatinine Ratio 31.6 H, Glucose 101, C alcium 8.1 L Micro: Microbiology 03/21/24 15:50 Swab (Method) Nasal Screen MRSA/MSSA - Final Physical Exam Narrative Seen and examined. Blood pressure has recovered. Patient is doing well. Ready for going home. General: Alert, Oriented x3, Cooperative, sitting up in the chair. HEENT: Atraumatic, PERRLA, EOMI, Normocephalic Oral: No Gingival or Mucosal Lesions/ Ulcerations Neck: Supple, No JVD, Negative Carotid Bruits Chest wall/Lungs: Air entry diminished in bilateral lung bases. No crepitation/rhonchi Cardiovascular: Irregular rate and rhythm. CABG scar. No M/G/R Abdomen: Bowel Sounds Present, Soft, Non Tender, Non-Distended : No dysuria. No renal angle tenderness. No suprapubic tenderness. Extremities: No edema, Capillary Refill Less than 3 Seconds Skin: No rashes, No breakdown Musculoskeletal/spine: Tenderness over perioperative region. Surgical dressing is dry. No acute tenderness to peripheral joints. Neurological: Cranial nerves II-XII grossly intact, DTR 2+/4. Chronic L4-5 radiculopathy worse on the left buttock. Psych/Mental Status: Normal Affect, Appropriate. Assessment & Plan Assessment/Plan (1) Status post lumbar laminectomy: (2) Spinal stenosis of lumbar region with neurogenic claudication: PLAN: Plan This is 78-year-old gentleman is as consultation for perioperative management. 1. Acute on chronic L4-5 severe stenosis with prior L4 compression fracture: Patient is being admitted to [facility] floor. Patient had elective L4-5 laminectomy with partial facetectomy and foraminotomy on 03/24/2024. Pain controlled. Bowel and bladder care. Incentive spirometry. Hold warfarin today as patient just had surgery. Supportive management with antiemetics. IV fluid. 03/25: Hypotension most likely distributive from multiple medications including Cardura, muscle relaxant: Blood pressure was low 83/50 in the morning. 1 L of Ringer lactate given. And then continue 75 mill per hour. Blood pressure responded 101/54. Avoid antihypertensive medication. Has not moved bowels. 03/26: Blood pressure has recovered. Patient was advised to check blood pressure before taking antihypertensive medications including doxazosin and avoid/skip the dose if blood pressure is less than 110 mmHg. Follow-up PCP 2. CAD status post two-vessel CABG, chronic A-fib on warfarin: Patient on metoprolol 50 mg twice daily, potassium supplement, and atorvastatin. Continued 03/25: No chest pain or shortness of breath. No dizziness or lightheadedness. 3. Chronic HFpEF: Patient on furosemide 20 mg daily, hold today continue from tomorrow a.m. 4. Hypertension: Blood pressure is controlled. 5. Prostate cancer on Xtandi status post radiation beads: No acute issues. Patient does not have any obstructive or irritative lower urinary tract symptoms. On doxazosin and terazosin, similar mechanism of action, both selective alpha 1 edith. 6. Mild anxiety: On citalopram hold it today 7. Dyslipidemia on atorvastatin continued DVT prophylaxis as per discretion of orthopedic surgeon. Patient on warfarin for chronic A-fib currently on hold. Patient can resume warfarin. Patient is medically stable for discharge. Charges/Coding Visit Charges Inpatient E&M: 29410 Subs Hosp L2
[2024-03-26 10:01] VITALS: PULSE 88
[2024-03-26] MEDS: Loratadine 10 MG Tablet PO (10:01)
[2024-03-26] MEDS: Metoprolol Tartrate 25 MG Tablet PO (10:01)
[2024-03-26] MEDS: Potassium Chloride Oral Tablet 20 MEQ PO (10:01)
[2024-03-26] MEDS: Fluticasone 0.05% 1 SPRAY NASAL.SRY 2 SPRAY NASAL (10:02)
[2024-03-26] MEDS: Atorvastatin Calcium 80 MG Tablet PO (10:02)
[2024-03-26] MEDS: Meloxicam 15 MG Tablet PO (10:02)
[2024-03-26] MEDS: Methocarbamol 500 MG Tablet PO ×2 (10:03→13:48)
[2024-03-26 10:35] VITALS: BP 123/66; PULSE 89; RESP 18; TEMP 37.1; O2SAT 97
[2024-03-26 12:00] VITALS: PULSE 90
--- NOTE | 2024-03-26 12:14 | PCM.PN.ORT ---
Subjective Subjective Postop day 2 status post L4-5 laminectomy. Patient doing well. Pain well-controlled. Objective Data Objective Data Vital Signs: Vital Signs Temp Pulse Resp BP Pulse Ox O2 Del Method O2 Flow Rate 97.7 F L 88 16 128/69 H 98 Nasal Cannula 2 03/26/24 04:35 03/26/24 10:01 03/26/24 04:35 03/26/24 04:35 03/26/24 04:35 03/26/24 04:35 03/26/24 04:35 Oxygen Flow Rate (L/min) 2 Oxygen Delivery Method Nasal Cannula Weight: 262 lb 3.2 oz Body Mass Index (BMI) 35.5 Intake & Output: Intake and Output for Last 24 Hours 03/24/24 03/25/24 03/26/24 23:59 23:59 23:59 Intake Total 2472 / 2947 2843.5 / 2843.5 Output Total 250 / 600 1100 / 1100 500 / 500 Balance 2222 / 2347 1743.5 / 1743.5 -500 / -500 Lab / Micro Data 03/26/24 05:35 03/26/24 05:35 Labs: Laboratory Results - last 24 hr 03/25/24 12:35: PT 15.7 H, INR 1.3 03/26/24 05:35: WBC 8.4, RBC 3.45 L, Hgb 10.2 L, Hct 31.8 L, MCV 92.2, MCH 29.6, MCHC 32.1, RDW Std Deviation 45.1 H, RDW Coeff of Dick 13.3, Plt Count 126 L, MPV 9.1, Immature Gran % (Auto) 0.500, Neut % (Auto) 78.4 H, Lymph % (Auto) 7.8 L, [place] % (Auto) 6.8, Eos % (Auto) 6.4 H, Baso % (Auto) 0.1, Absolute Neuts (auto) 6.6, Absolute Lymphs (auto) 0.66 L, Nucleated RBC % 0, PT 15.5 H, INR 1.2, Sodium 139, Potassium 3.8, Chloride 108 H, Carbon Dioxide 28.0, Anion Gap 3 L, BUN 18, Creatinine 0.57 L, Estim Creat Clear Calc 104.59, Est GFR (MDRD) Af Amer 178, Est GFR (MDRD) Non-Af 148, BUN/Creatinine Ratio 31.6 H, Glucose 101, Calcium 8.1 L Micro: Microbiology 03/21/24 15:50 Swab (Method) Nasal Screen MRSA/MSSA - Final Physical Exam Narrative Dressing CDI. Neurologic evaluation lower extremity shows baseline weakness in both lower extremities which is graded 4+ in the right lower extremity, and 4 - on the left. Const alert and oriented x3 Assessment & Plan Assessment/Plan (1) Status post lumbar laminectomy: PLAN: Plan Postop day 2 status post L4-5 laminectomy. PT OT mobilization. Will need follow-up with me in 2 weeks for staple removal. Okay for discharge home today with home health physical therapy following up.
[2024-03-26 13:29] VITALS: BP 125/66; PULSE 90; RESP 18; TEMP 36.7; O2SAT 97
== END 2024-03-26 14:55 | disposition home health service (06) ==
LOC: MS3 14:19
PROVIDERS: Anesthesiology; Internal Medicine; Admitting Provider Orthopaedic Surgery Orthopaedic Surgery of the Spine; PCP Family Medicine Geriatric Medicine; Referring Provider Orthopaedic Surgery Orthopaedic Surgery of the Spine; Visit Provider Orthopaedic Surgery Orthopaedic Surgery of the Spine
PROC: (CPT 63030; principal; 2024-03-24 07:00)
DX: M48.062 Spinal stenosis, lumbar region with neurogenic claudication (principal); I11.0 Hypertensive heart disease with heart failure; I50.32 Chronic diastolic (congestive) heart failure; I48.91 Unspecified atrial fibrillation; C61 Malignant neoplasm of prostate; I25.10 Atherosclerotic heart disease of native coronary artery without angina pectoris; Z87.891 Personal history of nicotine dependence; M48.56XD Collapsed vertebra, not elsewhere classified, lumbar region, subsequent encounter for fracture with routine healing; E78.00 Pure hypercholesterolemia, unspecified; Z79.01 Long term (current) use of anticoagulants; R26.2 Difficulty in walking, not elsewhere classified; Z98.1 Arthrodesis status; Z79.899 Other long term (current) drug therapy; F41.9 Anxiety disorder, unspecified
CPT/HCPCS: 63047; 00630; 36415; 36416; 72020; 76000; 80048; 82962; 83735; 85025; 85027; 85610; 86703; 86706; 86708; 86803; 86850; 86900; 86901; 87077; 87081; 94668; 96361; 96365; 96366; 96375; 96376; 97110; 97162; 97166; 97530; 97535; 99221; J7040; J7120; A4216; G0378; J2405; J3475

== ENCOUNTER 2024-04-06 08:02 | Outpatient (CLI) | payer MEDICARE, SELFPAY ==
[2024-04-06 10:50] LABS: International Normalized Ratio 2.7; Prothrombin Time (Protime)PT. 28.7 SECONDS (11.7-14.9)
== END 2024-04-06 23:59 | disposition home or self-care (01) ==
LOC: LAB 08:04
PROVIDERS: PCP Family Medicine Geriatric Medicine; Visit Provider Internal Medicine Cardiovascular Disease
DX: I48.91 Unspecified atrial fibrillation (principal); Z79.01 Long term (current) use of anticoagulants
CPT/HCPCS: 36415; 85610

== ENCOUNTER → 2024-04-21 | Outpatient (CLI) | payer MEDICARE, SELFPAY ==
[2024-04-21 15:44] LABS: Absolute Neutrophil Count 4.2 X10^3/uL (2.0-7.7); Basophil# 0.02 X10^3/uL; Basophil% 0.3 % (0-1); Eosinophil# 0.19 X10^3/uL; Eosinophils% 3.1 % (0-5); Hematocrit 35.6 % (40-54); Hemoglobin 11.6 g/dL (13.0-16.5); Lymphocyte % 18.2 % (19-41); Mean Corp Hgb Conc 32.6 g/dL (32-36); Mean Corpuscular Hgb 29.3 pg (27.0-32.0); Mean Corpuscular Volume 89.9 fL (80-94); Monocyte# 0.51 X10^3/uL; Monocyte% 8.4 % (0-10); NRBC Flagged by Analyzer 0 % (0-5); Neutrophil % 69.7 % (47-70); Platelet Count 142 K/mm3 (150-450); RBC Distribution Width CV 12.7 % (11.6-14.6); RBC Distribution Width SD 41.7 fl (35.1-43.9); Red Blood Count 3.96 M/mm3 (4.6-6.2)
[2024-04-21 16:23] LABS: ALB/GLOB Ratio 0.8 RATIO (0.9-2.4); AST(SGOT) 30 U/L (15-37); Alanine Aminotransfer ALT/SGPT 30 U/L (16-61); Albumin, Serum 3.1 g/dL (3.2-5.0); Alkaline Phosphatase 130 U/L (45-117); Anion Gap 5 (5-15); BUN 22 mg/dL (7-18); BUN/Creat Ratio 36.4 RATIO (10-20); Calcium,Total 9.2 mg/dL (8.5-10.1); Chloride 106 mmol/L (98-107); EST Glomerular Filtration Rate 138 mL/min (>60); Est Glom Filt Rate - Afr Amer 167 mL/min (>60); Globulin 4.1 g/dL (2.2-4.2); Glucose 100 mg/dL (74-106); Potassium 4.1 mmol/L (3.5-5.1); Protein, Total 7.2 g/dL (6.4-8.2); Sodium Level 141 mmol/L (136-145); Thyroid Stim Hormone (TSH) 3.01 uIU/mL (0.358-3.74)
[2024-04-21 16:25] LABS: Vitamin D,25 Hydroxy 49.9 ng/mL
== END | disposition home or self-care (01) ==
PROVIDERS: PCP Family Medicine Geriatric Medicine; Referring Provider Family Medicine Geriatric Medicine; Visit Provider Family Medicine Geriatric Medicine
DX: I10 Essential (primary) hypertension (principal); E55.9 Vitamin D deficiency, unspecified; F52.8 Other sexual dysfunction not due to a substance or known physiological condition
CPT/HCPCS: 36415; 80053; 82306; 84403; 84443; 85025

== ENCOUNTER → 2024-05-05 | Outpatient (CLI) | payer MEDICARE, SELFPAY ==
[2024-05-05 10:43] LABS: International Normalized Ratio 2.6; Prothrombin Time (Protime)PT. 27.9 SECONDS (11.7-14.9)
== END | disposition home or self-care (01) ==
LOC: LAB 09:30
PROVIDERS: PCP Family Medicine Geriatric Medicine; Visit Provider Internal Medicine Cardiovascular Disease
DX: I48.91 Unspecified atrial fibrillation (principal); Z79.01 Long term (current) use of anticoagulants
CPT/HCPCS: 85610

== ENCOUNTER → 2024-06-02 | Outpatient (CLI) | payer MEDICARE, SELFPAY ==
[2024-06-02 10:58] LABS: International Normalized Ratio 2.3; Prothrombin Time (Protime)PT. 24.9 SECONDS (11.7-14.9)
== END | disposition home or self-care (01) ==
LOC: LAB 08:22
PROVIDERS: PCP Family Medicine Geriatric Medicine; Visit Provider Internal Medicine Cardiovascular Disease
DX: I48.91 Unspecified atrial fibrillation (principal); Z79.01 Long term (current) use of anticoagulants
CPT/HCPCS: 85610

== ENCOUNTER 2024-06-09 14:30 | Outpatient (RCR) | payer MEDICARE, SELFPAY ==
--- NOTE | 2024-06-06 14:28 | HP.PTEVAL ---
Patient's Visit Information Visit Information Visit Information: MEENAKSHI NI is a 78 year old M referred to Physical Therapy by Dr. Pasquale Blair MD with a diagnosis of OTHER SPECIFIED POSTPROCEDURAL STATUS. Date of Evaluation: 06/06/24 Physical Therapist: Meenakshi Arellano PT, Cert MDT, OCS Visit Plan Frequency: 2x /Week Duration: 4 Weeks Plan: S/P LUMBAR LAMINECTOMY 03/24 Ambulates with fww Transfers mod assist PT INTERVENTIONS GAIT/BALANCE TRAINING,DLS ,POSTURAL EX'S ,BLE STRENGTHENING AND FUNCTIONAL STRENGTHENING. Subjective Subjective: This 78 y/o male presents to physical therapy L4-L5 laminectomy with partial facetectomy and foraminotomy on 03/24/[address] Blair [facility] . Patient d/c ~ 1week later with [facility] PT 2 months . Patient severity of pain caused patient in TCU prior to surgery due to getting up and walking. Patient seen Dr abad PT . Medication pain oxycodone and teylonal. MRI was done in hospital caused severe critical stenosis adn old L4 compression fracture. Patent has h/o lumbar pain years and received pain management. Patient has been in past . Patient ahs h/o THR left and fx ankle ,cervical surgery along with other comrbities . Patient lives alone Apartment 7 steps with rails. Tub/shower set up with bars . 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 Patient aide as sit with bathing adn some cooking. Patient has elevated toilet seat ,hospital bed ,lift chair adn unsafe fww. Patient ahs pain left leg to knee. Aggravating walking/standing affects ADLS.Alleviating factors sitting. Coughing/Sneezing-. Bowel/bladder -C/O paresthesia/tingling feet and lower legs. Patient sleeping good. Patient conidtion affects QOL and function. Patient goals to get rid of FWW SOCIAL: lives alone VOCATION: retired Pain Left Lower Extremity: Pain Intensity (Out of 10): 2 Pain Intensity Range: 10 Comment: left hip/knee Objective Objective: POSTURE: mod forward posture hips/knees flexed GAIT: patient ambulates with fww slow yuan unsteady trunk forward posture leg external rotation hips/knees flexed with unsafe FWW BALANCE: fair with FWW TRANSFERS: sit-stand with mod assist LUMBAR ROM: flexion mod loss ,extension severe loss ,side glides mod loss , FLEXABILITY: hamstrings mod tight MMT: ( peak force) hip flexion,hip abd 0 ,quads right 27.9 ,left 26 .7 ,hamstrings 17.8 right left 19.1,ankd 4-/5 Special Tests L/S Slump test left side: Negative L/S Slump test right side: Negative L/S Left Straight Leg Raise: Negative L/S Right Straight Leg Raise: Negative Balance/Special Test Scores Oswestry Low Back Score: 34 Goals Goal 1:: Patient to be I with HEP for strengthening Goal Time Frame: 4-6 Weeks Goal 2:: Patient to demonstrate 50% Improvement with function and gait Goal Time Frame: 4-6 Weeks Goal 3:: Patient to improve lumbar ROM for function of recovery to put on shoes Goal Time Frame: 4-6 Weeks Goal 4:: Patient to improve peak force quads/hams/hip by 5-10#V strength to improve function Goal Time Frame: 4-6 Weeks Goal 5:: Patient to improve transfers sit-stand with CGA Goal Time Frame: 4-6 Weeks Goal 6:: Patient to improve back oswestry score by 5 points to improve QOL and function Goal Time Frame: 4-6 Weeks Rehabilitation Potential Physical Therapy Diagnosis: This patient L4-L5 laminectomy with partial facetectomy and foraminotomy on with pain left leg ,weakness legs ,impaired gait,balance ,decrease lumbar ROM ,decrease transfers thus benefit from skilled PT Rehabilitation Potential: Fair Anticipated Interventions Patient/Client Instruction: Educate patient on: Condition and Plan of Care For the Purpose of:: To decrease pain, To increase ROM, To improve muscle performance and motor function, To improve ability to perform ADL's, To increase tolerance to activity/condition/position, To improve performance and independence with ADL's, To improve ability of physical actions for home/community/work/leisure, To improve gait and locomotor functions, To improve health of tissue, To decrease soft tissue restriction, To increase flexibility/ROM, To improve endurance, To improve balance, To improve safety with gait, To assume or resume ADL's and To improve tolerance to ADL's Therapeutic Exercise to Include: Strength training, Endurance training, Balance training, Postural training, Flexibilty training, Gait and locomotor training and Dynamic Lumbar Stabilization Comment: BLE QUADS/HAMS/HIP For the Purpose of:: To decrease pain, To increase ROM, To improve muscle performance and motor function, To improve ability to perform ADL's, To increase tolerance to activity/condition/position, To improve performance and independence with ADL's, To improve ability of physical actions for home/community/work/leisure, To improve gait and locomotor functions, To improve health of tissue, To decrease soft tissue restriction, To increase flexibility/ROM, To improve endurance, To improve balance, To improve safety with gait, To reduce risk of recurrence and To improve tolerance to ADL's Text: Thank you for the opportunity to evaluate your patient. For Medicare and Medicare HMO plans, please review the plan of care and approve it. It will need to be FAXED BACK to us at [phone] for Medicare purposes. For Medicare only, by signing this I certify the plan of care. Please let me know if there are questions or concerns regarding this plan of care. Physician Signature: Date:
--- NOTE | 2024-06-23 18:32 | HP.PTDCNRP_ITS ---
Patient Information Patient Information: MEENAKSHI NI Jr. was seen in my office for initial evaluation on 06/06/24. The following Plan of Care was established for this patient: POC Established Initial Frequency: 2x /Week Initial Duration: 4 Weeks Anticipated Interventions Patient/Client Instruction: Educate patient on: Condition and Plan of Care For the Purpose of:: To decrease pain, To increase ROM, To improve muscle performance and motor function, To improve ability to perform ADL's, To increase tolerance to activity/condition/position, To improve performance and ind ependence with ADL's, To improve ability of physical actions for home/community/work/leisure, To improve gait and locomotor functions, To improve health of tissue, To decrease soft tissue restriction, To increase flexibility/ROM, To improve endurance, To improve balance, To improve safety with gait, To assume or resume ADL's and To improve tolerance to ADL's Therapeutic Exercise to Include: Strength training, Endurance training, Balance training, Postural training, Flexibilty training, Gait and locomotor training and Dynamic Lumbar Stabilization For the Purpose of:: To decrease pain, To increase ROM, To improve muscle performance and motor function, To improve ability to perform ADL's, To increase tolerance to activity/condition/position, To improve performance and independence with ADL's, To improve ability of physical actions for home/community/work/leisure, To improve gait and locomotor functions, To improve health of tissue, To decrease soft tissue restriction, To increase flexibility/ROM, To improve endurance, To improve balance, To improve safety with gait, To reduce risk of recurrence and To improve tolerance to ADL's Last Seen Last Seen: This patient was last seen in our office . Pertinent comments regarding their Physical therapy will appear below: Patient d/c fell at home then admitted to hospital. Will need new order if continue At this point I will be discontinuing this patient from physical therapy. I would be happy to see this patient again in the future if found appropriate by the physician. Thank you! Meenakshi Arellano, PT, Cert MDT, OCS Balance/Gait/Functional tests Balance/Special Test Scores Oswestry Low Back Score: 34
== END 2024-06-09 19:00 | disposition home or self-care (01) ==
LOC: PT 14:30
PROVIDERS: PCP Family Medicine Geriatric Medicine; Referring Provider Orthopaedic Surgery Orthopaedic Surgery of the Spine; Visit Provider Orthopaedic Surgery Orthopaedic Surgery of the Spine
DX: Z98.890 Other specified postprocedural states (principal)
CPT/HCPCS: 97110; 97163

== ENCOUNTER 2024-06-12 07:00 | Observation (INO) | payer MEDICARE, SELFPAY ==
[2024-06-12] VITALS (8 sets, daily range): BP systolic 117–157; BP diastolic 51–95; PULSE 72–117; RESP 17–23; TEMP 36–36.7; O2SAT 90–100; BMI 35.4
--- NOTE | 2024-06-12 07:21 | RAD_ITS ---
INDICATION: follow up with coronary artery disease EXAMINATION/TECHNIQUE: X-RAY - XR Chest 1 View COMPARISON: Prior study dated: 04/06/2022 FINDINGS: LINES/DEVICES: None. LUNGS: No consolidation, edema or effusion. No pneumothorax. MEDIASTINUM AND CARDIOVASCULAR STRUCTURES: Status post median sternotomy. Mild cardiomegaly. BONES AND SOFT TISSUES: Unremarkable. RAD/Chest 1 View (Portable) IMPRESSION: No significant change. Electronically Signed: Lefty Patel MD at 9:23 EDT ,
--- NOTE | 2024-06-12 07:22 | EKG12_ITS ---
Test Reason : Blood Pressure : / mmHG Vent. Rate : 099 BPM Atrial Rate : 000 BPM P-R Int : 000 ms QRS Dur : 092 ms QT Int : 362 ms P-R-T Axes : 000 018 -41 degrees QTc Int : 464 ms Atrial fibrillation Nonspecific ST and T wave abnormality Abnormal ECG Confirmed by Devon Saenz ([id number]), senior technical editor LIZBETH TREJO ([id number]) on 06/14/2024 1:44:29 PM Referred By: Confirmed By:Devon Saenz
--- NOTE | 2024-06-12 07:23 | EDS_ITS ---
HPI HPI - Fall History of Present Illness Chief Complaint: Fall Narrative Narrative: 78-year-old male past medical history of prostate carcinoma, hypertension, hyperlipidemia presents via EMS status post fall out of bed. He states he did not really fall out of bed, but he tried to get up and he slid down onto his buttocks. As soon as it happened, he called for help. This because he lives at home alone, and yesterday evening had to have people help him into bed. She usually ambulates with a walker. He relates history that over the last week he has had very loose stool but no abdominal pain. No fevers or chills. He feels generally weak and when he slid out of bed, he could not get up. He states that he was at rehab at [facility] on Thursday, 2 days ago as an outpatient. [facility] Medical History Preop testing History of Clostridium difficile infection Wears glasses Walker as ambulation aid Arthritis Prostate disease High cholesterol Former smoker Lymph edema History of stress test History of echocardiogram Cardiology follow-up encounter History of atrial fibrillation Diverticulosis Cancer Kidney stones CPAP (continuous positive airway pressure) dependence Sleep apnea Closed wedge compression fracture of T11 vertebra Debility Venous insufficiency (chronic) (peripheral) Onycholysis Ankle fracture, left Fall Atrial fibrillation Closed fracture of left hip Closed left humeral fracture Longstanding persistent atrial fibrillation Essential hypertension Former tobacco use Sepsis History of Clostridium difficile infection (01/09/19) Traumatic hemothorax (12/30/18) History of subdural hematoma (post traumatic) (12/27/18) Fracture of ninth thoracic vertebra (12/27/18) Hyperlipidemia Atherosclerotic heart disease of [place] coronary artery without angina pectoris [facility] (current) use of anticoagulants Home Medications ?Medication ?Instructions ?Recorded ?Last Taken ?Type potassium chloride 20 mEq 20 meq PO DAILY supplement 12/03/18 03/11/24 History tablet,extended release cetirizine 10 mg capsule 10 mg PO DAILY Allergy 12/27/18 03/16/24 History metoprolol tartrate 50 mg tablet 50 mg PO BID bp 03/15/19 03/24/24 05:30 History cholecalciferol (vitamin D3) 1,250 1,000 unit PO DAILY supplement 10/29/20 03/16/24 History mcg (50,000 unit) capsule terazosin 10 mg capsule 10 mg PO QPM BPH 12/01/22 03/11/24 History enzalutamide 40 mg tablet (Xtandi) 160 mg (4 x 40 mg) PO QPM Prostate 12/16/22 03/15/24 Rx #0 tabs fluticasone propionate 50 2 spray NASAL DAILY Allergies #0 12/16/22 03/16/24 Rx mcg/actuation nasal grams spray,suspension lidocaine 5 % topical patch 1 patch topical DAILY Pain 30 days 12/16/22 Unknown Rx #30 ea acetaminophen 650 mg 650 mg PO Q8H PRN pain 03/12/24 03/24/24 05:30 History tablet,extended release (8 Hour Pain Reliever) atorvastatin 80 mg tablet 80 mg PO DAILY Cholesterol 03/12/24 03/11/24 History furosemide 20 mg tablet 20 mg PO DAILY Edema 03/12/24 03/11/24 History sennosides 8.6 mg-docusate sodium 2 tab-cap (2 x 8.6-50 mg) PO BID 03/12/24 Unknown Rx 50 mg tablet (Senna with Docusate PRN constipation #30 tabs Sodium) warfarin 5 mg tablet 7.5 mg PO DAILY BLOOD THINNER 03/12/24 03/11/24 History ondansetron 4 mg disintegrating 4 mg PO Q8H PRN nausea and 03/15/24 03/24/24 05:30 Rx tablet vomiting #10 tabs doxazosin 4 mg tablet (Cardura) 4 mg PO DAILY 03/21/24 Unknown History oxycodone 5 mg tablet 2.5 - 5 mg (0.5 - 1 x 5 mg) PO Q6H 03/26/24 Unknown Rx PRN pain 5 days #20 tabs citalopram 10 mg tablet 20 mg PO QHS depression 05/19/24 Unknown History Allergy/AdvReac Type Severity Reaction Status Date / Time amiodarone AdvReac Intermediate It did not Verified 05/19/24 13:06 work, also bad dreams and neuropathy Family History Father , Age 57 Myocardial infarction CAD (coronary artery disease) ETOH abuse Mother , Age 47, of bone cancer Bone cancer Brother , age 45, of AIDS AIDS (acquired immune deficiency syndrome) Surgical History History of colonoscopy History of cholecystectomy History of left hip hemiarthroplasty H/O cervical spine surgery (01/2020) H/O coronary artery bypass surgery (11/26/98) History of thoracic spinal fusion (12/30/18) History of left heart catheterization (11/26/98) Social History household members: none Smoking Status: Former smoker alcohol intake: current details: once a week substance use type: does not use ROS ROS ED ROS Narrative Constitutional: No fever, no chills. Generalized weakness. HEENT: No sore throat. No neck pain. No loss of vision. No rhinorrhea. Cardiovascular: No chest pain. No palpitations. No pedal edema. Respiratory: No cough, no shortness of breath. Abdominal: No abdominal pain. Positive nausea. No vomiting. Loose stool/diarrhea for about a week. Genitourinary: No dysuria. No hematuria. Musculoskeletal: No myalgias. No arthralgias. Denies injury from sliding out of bed. Neurologic: No headaches. No dizziness. No lightheadedness. No loss of consciousness. Skin: No rash. No change in color. Psychiatric: No depression. No anxiety. EXAM Physical Exam Narrative Exam Narrative: Afebrile. Vital signs noted. Nontoxic-appearing. HEENT examination shows PERRL, EOMI. Normocephalic, atraumatic. Neck soft and supple. Cardiovascular examination reveals a irregularly irregular normal rate. Decreased breath sounds bilateral bases of lungs, no overt wheezing or stridor. Abdomen soft, nontender without guarding or rebound. Positive bowel sounds. Neurological examination nonfocal and nonlateralizing, patient awake, and alert. Musculoskeletal examination reveals positive flexion extension of knees and hips. Chronic lymphedema changes bilateral lower extremities of skin. Const Vital Signs: 06/12/24 07:03 06/12/24 07:15 06/12/24 09:05 Temperature 96.8 F L Temperature Source Temporal Pulse Rate 117 H 97 Respiratory Rate 23 H 22 H Respiratory Effort Normal Non-Labored Blood Pressure 134/66 H 157/95 H Blood Pressure Mean 88 115 Pulse Ox 91 90 Oxygen Delivery Method Room Air Room Air Room Air MDM MDM MDM Narrative Medical decision making narrative: Differential diagnosis includes but not limited to dehydration versus other electrolyte abnormality, pneumonia or UTI as source of infection for generalized weakness. As he was not injured, did not hit his head I do not feel CT imaging of the brain is indicated currently. He has a marginally low pulse ox of 91 to 93% so x-ray will be obtained to rule out pneumothorax and pneumonia. He was bolused normal saline 500 mL intravenously. Patient does have history of atrial fibrillation as well. EKG was obtained and interpreted by myself independently as atrial fibrillation at [address] changes. No STEMI. I reviewed his laboratory work and he has normal white count of 7.6, hemoglobin 11.0 with hematocrit 33.4, platelet count slightly low at 117. In review of prior laboratories he has a chronic thrombocytopenia. Will feel he requires transfusion. LFTs are grossly unremarkable except for total bili slightly elevated 2.1, but he has had elevation in the past as well. Sodium normal at 143, potassium 3.9 and chloride slightly elevated at 111, BUN of 21 and creatinine 0.73, no profound dehydration. High-sensitivity troponin is 8. I do not feel he requires serial enzymes. Chest x-ray 1 view interpreted by myself independently shows chronic changes, but no evidence of pneumothorax. No pneumonia. I reviewed the radiology report which confirms my independent interpretation. He does have history of heart failure with preserved ejection fraction, so I added a BNP and reviewed it and is only slightly elevated at 114. Urinalysis negative for infection. Patient states that he is unable to ambulate and his back pain started increasing. He was given oxycodone orally. Attempt was made to sit him up, but he refused to walk. Given that he lives alone and is having back pain and debility, I discussed patient with Dr. Sommer for assignment observation. Patient is in stable condition. History & Record Review Discussion w/independent historian: Patient Additional record(s) reviewed:: Prior labs Lab Data Attestation: I reviewed the patient's lab results. Labs: Laboratory Results - last 24 hr 06/12/24 06/12/24 07:35 09:00 WBC 7.6 RBC 3.68 L Hgb 11.0 L Hct 33.4 L MCV 90.8 MCH 29.9 MCHC 32.9 RDW Std Deviation 45.2 H RDW Coeff of Dick 13.6 Plt Count 117 L MPV 9.3 Immature Gran % (Auto) 0.400 Neut % (Auto) 86.0 H Lymph % (Auto) 6.2 L [place] % (Auto) 6.7 Eos % (Auto) 0.4 Baso % (Auto) 0.3 Absolute Neuts (auto) 6.5 Absolute Lymphs (auto) 0.47 L Nucleated RBC % 0 Sodium 143 Potassium 3.9 Chloride 111 H Carbon Dioxide 27.0 Anion Gap 5 BUN 21 H Creatinine 0.73 Estim Creat Clear Calc 104.44 Est GFR (MDRD) Af Amer 135 Est GFR (MDRD) Non-Af 111 BUN/Creatinine Ratio 28.8 H Glucose 152 H Calcium 8.6 Total Bilirubin 2.10 H AST 18 ALT 19 Alkaline Phosphatase 106 Troponin I High Sens 8 B-Natriuretic Peptide 114.4 H Total Protein 6.8 Albumin 3.0 L Globulin 3.8 Albumin/Globulin Ratio 0.8 L Urine Color Lyn Urine Clarity Clear Urine pH 5.0 Ur Specific [place] 1.025 Urine Protein 30 H Urine Glucose (UA) Normal Urine Ketones 5 H Urine Occult Blood 50 H Urine Nitrite Negative Urine Bilirubin 1 H Urine Urobilinogen 1 H Ur Leukocyte Esterase Negative Urine RBC 0 SEEN Urine WBC 0-5 SEEN Ur Squamous Epith Cells 0 SEEN Urine Bacteria 2+ Urine Mucus 2+ Radiography Diagnostic Testing: Clinical Impression(s) from Imaging Studies Chest X-Ray 06/12/24 07:21 IMPRESSION: No significant change. Electronically Signed: Lefty Patel MD at 9:23 EDT , Discharge Plan Dx/Rx/DC Orders Clinical Impression: Generalized weakness, Debility, Back pain, Unable to ambulate Disposition Disposition: Acute Care [facility]
[2024-06-12] MEDS: Ondansetron 4 MG/2 ML Vial IV ×2 (07:45→16:41)
[2024-06-12] MEDS: Acetaminophen 325 MG Tablet 650 MG PO (07:45)
[2024-06-12] MEDS: 0.9% Normal Saline (1000mL) 1,000 ML 1000 ML IV (07:46)
[2024-06-12 07:50] LABS: Absolute Lymphocyte Count 0.47 X10^3/uL (0.83-4.51); Absolute Neutrophil Count 6.5 X10^3/uL (2.0-7.7); Basophil# 0.02 X10^3/uL; Basophil% 0.3 % (0-1); Eosinophil# 0.03 X10^3/uL; Eosinophils% 0.4 % (0-5); Hematocrit 33.4 % (40-54); Lymphocyte # 0.47 X10^3/ul (0.83-4.51); Lymphocyte % 6.2 % (19-41); Mean Corp Hgb Conc 32.9 g/dL (32-36); Mean Corpuscular Hgb 29.9 pg (27.0-32.0); Mean Corpuscular Volume 90.8 fL (80-94); Mean Platelet Vol. 9.3 fl (6.2-12.0); Monocyte# 0.51 X10^3/uL; Monocyte% 6.7 % (0-10); NRBC Flagged by Analyzer 0 % (0-5); Neutrophil # 6.51 X10^3/uL (2.7-7.7); POSITIVE DIFFERENTIAL YES; Platelet Count 117 K/mm3 (150-450); RBC Distribution Width CV 13.6 % (11.6-14.6); RBC Distribution Width SD 45.2 fl (35.1-43.9); Red Blood Count 3.68 M/mm3 (4.6-6.2); White Blood Count 7.6 K/mm3 (4.4-11.0)
[2024-06-12 08:11] LABS: ALB/GLOB Ratio 0.8 RATIO (0.9-2.4); AST(SGOT) 18 U/L (15-37); Alanine Aminotransfer ALT/SGPT 19 U/L (16-61); Alkaline Phosphatase 106 U/L (45-117); Anion Gap 5 (5-15); BUN 21 mg/dL (7-18); BUN/Creat Ratio 28.8 RATIO (10-20); Calcium,Total 8.6 mg/dL (8.5-10.1); Chloride 111 mmol/L (98-107); Creatinine, Serum 0.73 mg/dL (0.70-1.30); EST Glomerular Filtration Rate 111 mL/min (>60); Est Glom Filt Rate - Afr Amer 135 mL/min (>60); Estimated Creatinine Clearance 104.44 ml/min; Globulin 3.8 g/dL (2.2-4.2); Glucose 152 mg/dL (74-106); Potassium 3.9 mmol/L (3.5-5.1); Protein, Total 6.8 g/dL (6.4-8.2); Sodium Level 143 mmol/L (136-145); Troponin-I HS 8 pg/mL (3.0-78.0)
[2024-06-12 09:06] LABS: Red Blood Cells-Urine 0 SEEN /hpf (0-5); Squamous Epithelial Cells - UA 0 SEEN /hpf (0-5)
[2024-06-12 09:36] LABS: Color, Urine Amber (Yellow); Glucose, Dipstick Normal (Normal); Ketone-Dipstick 5 mg/dl (Negative); Leukocyte Esterase-Dipstick Negative /ul (Negative); Nitrite-Dipstick Negative (Negative); Occult Blood-Urine 50 /ul (Negative); Protein-Dipstick 30 mg/dl (Negative); Specific Gravity, Urine 1.025 (1.002-1.030); Urine Clarity Clear (Clear); Urine Urobilinogen 1 mg/dl (Normal)
[2024-06-12 09:37] LABS: Urine Bilirubin Dipstick 1 mg/dL (Negative)
[2024-06-12 09:50] LABS: Bacteria 2+ /hpf (None Seen); Mucous, Urine 2+ /hpf (<or=2+); White Blood Cells 0-5 SEEN /hpf (0-5)
[2024-06-12 09:55] LABS: BNP,B-Type NATRIURETIC PEPTIDE 114.4 pg/mL (0-100)
--- NOTE | 2024-06-12 10:58 | NURSING ---
DR MAIDA DELATORRE
--- NOTE | 2024-06-12 11:08 | HP.PCM.HOS_ITS ---
HPI - General General Date of Admission: 06/12/24 Date of Service: 06/12/24 Chief Complaint: Generalized weakness HPI Narrative MEENAKSHI NI, is a 78 M with multiple comorbidities including prostate CA currently remission hypertension dyslipidemia who presented with generalized weakness. Per patient has had multiple falls recently. He woke up on the morning of his admission unable to get out of bed he called the EMS squad and was brought to the emergency department. Workup in the emergency department came back unremarkable, patient however could not ambulate due to profound weakness hence decision to admit patient for inpatient eval with plans for possible transfer to a alf facility [facility] Medical History Preop testing History of Clostridium difficile infection Wears glasses Walker as ambulation aid Arthritis Prostate disease High cholesterol Former smoker Lymph edema History of stress test History of echocardiogram Cardiology follow-up encounter History of atrial fibrillation Diverticulosis Cancer Kidney stones CPAP (continuous positive airway pressure) dependence Sleep apnea Closed wedge compression fracture of T11 vertebra Debility Venous insufficiency (chronic) (peripheral) Onycholysis Ankle fracture, left Fall Atrial fibrillation Closed fracture of left hip Closed left humeral fracture Longstanding persistent atrial fibrillation Essential hypertension Former tobacco use Sepsis History of Clostridium difficile infection (01/09/19) Traumatic hemothorax (12/30/18) History of subdural hematoma (post traumatic) (12/27/18) Fracture of ninth thoracic vertebra (12/27/18) Hyperlipidemia Atherosclerotic heart disease of [place] coronary artery without angina pectoris 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 Home Medications ?Medication ?Instructions ?Recorded ?Last Taken ?Type potassium chloride 20 mEq 20 meq PO DAILY supplement 12/03/18 03/11/24 History tablet,extended release cetirizine 10 mg capsule 10 mg PO DAILY Allergy 12/27/18 03/16/24 History metoprolol tartrate 50 mg tablet 50 mg PO BID bp 03/15/19 03/24/24 05:30 History cholecalciferol (vitamin D3) 1,250 1,000 unit PO DAILY supplement 10/29/20 03/16/24 History mcg (50,000 unit) capsule terazosin 10 mg capsule 10 mg PO QPM BPH 12/01/22 03/11/24 History enzalutamide 40 mg tablet (Xtandi) 160 mg (4 x 40 mg) PO QPM Prostate 12/16/22 03/15/24 Rx #0 tabs fluticasone propionate 50 2 spray NASAL DAILY Allergies #0 12/16/22 03/16/24 Rx mcg/actuation nasal grams spray,suspension lidocaine 5 % topical patch 1 patch topical DAILY Pain 30 days 12/16/22 Unknown Rx #30 ea acetaminophen 650 mg 650 mg PO Q8H PRN pain 03/12/24 03/24/24 05:30 History tablet,extended release (8 Hour Pain Reliever) atorvastatin 80 mg tablet 80 mg PO DAILY Cholesterol 03/12/24 03/11/24 History furosemide 20 mg tablet 20 mg PO DAILY Edema 03/12/24 03/11/24 History sennosides 8.6 mg-docusate sodium 2 tab-cap (2 x 8.6-50 mg) PO BID 03/12/24 Unknown Rx 50 mg tablet (Senna with Docusate PRN constipation #30 tabs Sodium) warfarin 5 mg tablet 7.5 mg PO DAILY BLOOD THINNER 03/12/24 03/11/24 History ondansetron 4 mg disintegrating 4 mg PO Q8H PRN nausea and 03/15/24 03/24/24 05:30 Rx tablet vomiting #10 tabs doxazosin 4 mg tablet (Cardura) 4 mg PO DAILY 03/21/24 Unknown History oxycodone 5 mg tablet 2.5 - 5 mg (0.5 - 1 x 5 mg) PO Q6H 03/26/24 Unknown Rx PRN pain 5 days #20 tabs citalopram 10 mg tablet 20 mg PO QHS depression 05/19/24 Unknown History Allergy/AdvReac Type Severity Reaction Status Date / Time amiodarone AdvReac Intermediate It did not Verified 05/19/24 13:06 work, also bad dreams and neuropathy Family History Father , Age 57 Myocardial infarction CAD (coronary artery disease) ETOH abuse Mother , Age 47, of bone cancer Bone cancer Brother , age 45, of AIDS AIDS (acquired immune deficiency syndrome) Surgical History History of colonoscopy History of cholecystectomy History of left hip hemiarthroplasty H/O cervical spine surgery (01/2020) H/O coronary artery bypass surgery (11/26/98) History of thoracic spinal fusion (12/30/18) History of left heart catheterization (11/26/98) Social History household members: none Smoking Status: Former smoker alcohol intake: current details: once a week substance use type: does not use ROS ROS Narrative GENERAL: denies fever, chills, night sweats, weight loss, anorexia HEENT: denies headache, sinus congestion, or drainage, dysphagia RESPIRATORY: denies cough, sputum production, shortness of breath, dyspnea on exertion CARDIAC: denies chest pain, palpitations, orthopnea, PND GASTROINTESTINAL: denies abdominal pain, nausea, vomiting, melena, GENITOURINARY: denies dysuria, urgency, frequency, heamaturia EXTREMITY: denies swelling MUSCULOSKELETAL: Chronic back pain NEUROLOGIC: denies focal numbness, weakness, tingling HEMATOLOGIC: denies easy bruising and/or hemorrhage INTEGUMENT: denies rashes PSYCHIATRIC: denies suicidal or homicidal ideation Vital Signs Vital Signs Vital Signs: 06/12/24 07:03 06/12/24 07:15 06/12/24 09:05 Temperature 96.8 F L Temperature Source Temporal Pulse Rate 117 H 97 Respiratory Rate 23 H 22 H Respiratory Effort Normal Non-Labored Blood Pressure 134/66 H 157/95 H Blood Pressure Mean 88 115 Pulse Ox 91 90 Oxygen Delivery Method Room Air Room Air Room Air Weight Weight: 118.6 kg Body Mass Index (BMI) 35.4 Physical Exam Narrative GENERAL: cooperative HEENT: Atraumatic; normocephalic EYES; Anicteric, Normal Conjunctiva NECK; supple, normal thyroid, RESPIRATORY: Diminished to auscultation CARDIOVASCULAR: Regular S1 S2, GI: soft, normoactive bowel sounds, : No Renal angle tenderness; EXTREMITIES: Chronic stasis dermatitis with excoriation left lower extremity mid tibia MUSCULOSKELETAL: no muscle wasting NEURO: Awake; no lateralizing signs. SKIN: As described above PSYCH; Flat affect Results Lab / Micro Data 06/12/24 07:35 06/12/24 07:35 Labs: Laboratory Results - last 24 hr 06/12/24 07:35: WBC 7.6, RBC 3.68 L, Hgb 11.0 L, Hct 33.4 L, MCV 90.8, MCH 29.9, MCHC 32.9, RDW Std Deviation 45.2 H, RDW Coeff of Dick 13.6, Plt Count 117 L, MPV 9.3, Immature Gran % (Auto) 0.400, Neut % (Auto) 86.0 H, Lymph % (Auto) 6.2 L, [place] % (Auto) 6.7, Eos % (Auto) 0.4, Baso % (Auto) 0.3, Absolute Neuts (auto) 6.5, Absolute Lymphs (auto) 0.47 L, Nucleated RBC % 0, Sodium 143, Potassium 3.9, Chloride 111 H, Carbon Dioxide 27.0, Anion Gap 5, BUN 21 H, Creatinine 0.73, Estim Creat Clear Calc 104.44, Est GFR (MDRD) Af Amer 135, Est GFR (MDRD) Non-Af 111, BUN/Creatinine Ratio 28.8 H, Glucose 152 H, Calcium 8.6, Total Bilirubin 2.10 H, AST 18, ALT 19, Alkaline Phosphatase 106, Troponin I High Sens 8, B-Natriuretic Peptide 114.4 H, Total Protein 6.8, Albumin 3.0 L, Globulin 3.8, Albumin/Globulin Ratio 0.8 L 06/12/24 09:00: Urine Color Lyn, Urine Clarity Clear, Urine pH 5.0, Ur Specific [place] 1.025, Urine Protein 30 H, Urine Glucose (UA) Normal, Urine Ketones 5 H, Urine Occult Blood 50 H, Urine Nitrite Negative, Urine Bilirubin 1 H, Urine Urobilinogen 1 H, Ur Leukocyte Esterase Negative, Urine RBC 0 SEEN, Urine WBC 0-5 SEEN, Ur Squamous Epith Cells 0 SEEN, Urine Bacteria 2+, Urine Mucus 2+ Imaging Radiology Impression Chest X-Ray 06/12/24 07:21 IMPRESSION: No significant change. Electronically Signed: Lefty Patel MD at 9:23 EDT , Assessment & Plan Assessment/Plan (1) FTT (failure to thrive) in adult: PLAN: Plan Patient is a 78-year-old gentleman presenting with profound generalized weakness 1. Acute debility ? Exacerbated by patient chronic back pain. Admitted to regular nursing floor requested for PT OT and psychiatric social worker to assist with discharge planning 2. Chronic back pain with recent L4-5 laminectomy with partial facetectomy and foraminotomy on 03/24/2024. Did continue patient home pain medication regimen 3. Paroxysmal A. fib ?Rate controlled on systemic anticoagulation with warfarin. INR is supratherapeutic, plan is to hold Coumadin with daily monitoring of INR 4. Class II obesity with BMI of 36 ? Complicating care weight loss and 5. Hypertension - Blood pressure controlled, home medications continued with dose adjustment as needed 6. Coronary artery disease ?With previous history of CABG 7. History of prostate CA ?Patient is on leuprolide every 3 month as well as Xtandi daily 8. Dyslipidemia -Patient is on statin therapy, continued at home dose 9. DVT prophylaxis ?On systemic anticoagulation with Coumadin Time spent in the patient's overall evaluation,decision-making process, review of diagnostic data, adjustment of management, discussion with other providers, nursing nursing and ancillary staff involved in patient's care documentation, 60-minutes Advance planning; did discuss with the patient egarding advanced directives as well as CODE STATUS. Did explain the various scenarios involved ( FULL CODE, DNR CCA, DNR CCA with no intubation, and DNR CC and what each meant) patient elected to be DNR CCA no intubation. Order was placed. Time spent on discussion 16 minutes. Charges/Coding Multi Select Codes Visit Charges Visit Charges: 09292 Init Hosp L2 Hospitalists' Procedures Procedures: 52222 Advncd Care Plan 30 Min
[2024-06-12] MEDS: oxyCODONE 5 MG Tablet PO ×2 (11:11→16:41)
--- NOTE | 2024-06-12 11:12 | NURSING ---
MED SURG OBS KITTOE GENERALIZED WEAKNESS, CHRONIC BACK PAIN
[2024-06-12 11:51] LABS: Prothrombin Time (Protime)PT. 42.1 SECONDS (11.7-14.9)
[2024-06-12 11:59] LABS: International Normalized Ratio 4.5
--- NOTE | 2024-06-12 12:04 | NURSING ---
INR 4.5. DR BEY AWARE
[2024-06-12] MEDS: Acetaminophen 500 MG Tablet 1000 MG PO ×2 (16:41→21:15)
[2024-06-12] MEDS: 0.9% Saline Lock 10 ML Syringe IV (16:41)
[2024-06-12] MEDS: Menthol/Lanolin/Calamine/Znox 113 GM Tube 1 APPLIC TOPICAL (21:15)
[2024-06-12] MEDS: Nystatin Powder 15gm Bottle 1 APPLIC TOPICAL (21:15)
[2024-06-12] MEDS: Doxazosin 4 MG Tablet 8 MG PO (21:16)
[2024-06-12] MEDS: Metoprolol Tartrate 50 MG Tablet PO (21:16)
[2024-06-12] MEDS: Citalopram 20 MG Tablet PO (21:17)
[2024-06-13 04:00] VITALS: BP 134/60; PULSE 81; RESP 18; TEMP 36.6; O2SAT 98
[2024-06-13] MEDS: Acetaminophen 500 MG Tablet 1000 MG PO ×2 (04:51→16:05)
[2024-06-13] MEDS: Nystatin Powder 15gm Bottle 1 APPLIC TOPICAL ×2 (04:51→16:04)
[2024-06-13] MEDS: Menthol/Lanolin/Calamine/Znox 113 GM Tube 1 APPLIC TOPICAL ×2 (04:51→16:04)
[2024-06-13 05:51] VITALS: BMI 34.9
[2024-06-13 06:59] LABS: Absolute Lymphocyte Count 0.98 X10^3/uL (0.83-4.51); Absolute Neutrophil Count 4.1 X10^3/uL (2.0-7.7); Basophil# 0.03 X10^3/uL; Basophil% 0.5 % (0-1); Eosinophil# 0.28 X10^3/uL; Eosinophils% 4.8 % (0-5); Hematocrit 31.7 % (40-54); Hemoglobin 10.3 g/dL (13.0-16.5); Lymphocyte # 0.98 X10^3/ul (0.83-4.51); Lymphocyte % 16.7 % (19-41); Mean Corp Hgb Conc 32.5 g/dL (32-36); Mean Corpuscular Hgb 29.9 pg (27.0-32.0); Mean Corpuscular Volume 91.9 fL (80-94); Mean Platelet Vol. 9.4 fl (6.2-12.0); Monocyte# 0.49 X10^3/uL; Monocyte% 8.3 % (0-10); NRBC Flagged by Analyzer 0 % (0-5); Neutrophil # 4.06 X10^3/uL (2.7-7.7); Neutrophil % 69.2 % (47-70); Platelet Count 111 K/mm3 (150-450); RBC Distribution Width CV 13.6 % (11.6-14.6); RBC Distribution Width SD 45.5 fl (35.1-43.9); Red Blood Count 3.45 M/mm3 (4.6-6.2); White Blood Count 5.9 K/mm3 (4.4-11.0)
[2024-06-13 07:10] LABS: Prothrombin Time (Protime)PT. 41.3 SECONDS (11.7-14.9)
[2024-06-13 07:22] LABS: International Normalized Ratio 4.4
--- NOTE | 2024-06-13 07:23 | PCM.PN.HOSP ---
Reason for Visit Reason for Visit: Diagnoses Adult failure to thrive (06/12/24) Subjective Subjective Patient seen still complains of generalized weakness awaiting PT OT eval Objective Data Objective Data Vital Signs: Vital Signs Temp Pulse Resp BP Pulse Ox O2 Del Method O2 Flow Rate 97.8 F 81 18 134/60 H 98 Nasal Cannula 2 06/13/24 04:00 06/13/24 04:00 06/13/24 04:00 06/13/24 04:00 06/13/24 04:00 06/13/24 04:00 06/13/24 04:00 Oxygen Flow Rate (L/min) 2 Oxygen Delivery Method Nasal Cannula Weight: 117.1 kg Body Mass Index (BMI) 34.9 Intake & Output: Intake and Output for Last 24 Hours 06/11/24 06/12/24 06/13/24 23:59 23:59 23:59 Intake Total 1000 / 1000 Balance 1000 / 1000 Lab / Micro Data 06/13/24 06:25 06/13/24 06:25 Labs: Laboratory Results - last 24 hr 06/12/24 07:35: WBC 7.6, RBC 3.68 L, Hgb 11.0 L, Hct 33.4 L, MCV 90.8, MCH 29.9, MCHC 32.9, RDW Std Deviation 45.2 H, RDW Coeff of Dick 13.6, Plt Count 117 L, MPV 9.3, Immature Gran % (Auto) 0.400, Neut % (Auto) 86.0 H, Lymph % (Auto) 6.2 L, [place] % (Auto) 6.7, Eos % (Auto) 0.4, Baso % (Auto) 0.3, Absolute Neuts (auto) 6.5, Absolute Lymphs (auto) 0.47 L, Nucleated RBC % 0, Sodium 143, Potassium 3.9, Chloride 111 H, Carbon Dioxide 27.0, Anion Gap 5, BUN 21 H, Creatinine 0.73, Estim Creat Clear Calc 104.44, Est GFR (MDRD) Af Amer 135, Est GFR (MDRD) Non-Af 111, BUN/Creatinine Ratio 28.8 H, Glucose 152 H, Calcium 8.6, Total Bilirubin 2.10 H, AST 18, ALT 19, Alkaline Phosphatase 106, Troponin I High Sens 8, B-Natriuretic Peptide 114.4 H, Total Protein 6.8, Albumin 3.0 L, Globulin 3.8, Albumin/Globulin Ratio 0.8 L 06/12/24 09:00: Urine Color Lyn, Urine Clarity Clear, Urine pH 5.0, Ur Specific [place] 1.025, Urine Protein 30 H, Urine Glucose (UA) Normal, Urine Ketones 5 H, Urine Occult Blood 50 H, Urine Nitrite Negative, Urine Bilirubin 1 H, Urine Urobilinogen 1 H, Ur Leukocyte Esterase Negative, Urine RBC 0 SEEN, Urine WBC 0-5 SEEN, Ur Squamous Epith Cells 0 SEEN, Urine Bacteria 2+, Urine Mucus 2+ 06/12/24 11:30: PT 42.1 H, INR 4.5 H* 06/13/24 06:25: WBC 5.9, RBC 3.45 L, Hgb 10.3 L, Hct 31.7 L, MCV 91.9, MCH 29.9, MCHC 32.5, RDW Std Deviation 45.5 H, RDW Coeff of Dick 13.6, Plt Count 111 L, MPV 9.4, Immature Gran % (Auto) 0.500, Neut % (Auto) 69.2, Lymph % (Auto) 16.7 L, [place] % (Auto) 8.3, Eos % (Auto) 4.8, Baso % (Auto) 0.5, Absolute Neuts (auto) 4.1, Absolute Lymphs (auto) 0.98, Nucleated RBC % 0, PT 41.3 H, INR 4.4 H* Radiography Diagnostic Testing: Radiology Impression Chest X-Ray 06/12/24 07:21 IMPRESSION: No significant change. Electronically Signed: Lefty Patel MD at 9:23 EDT , Physical Exam Narrative GENERAL: cooperative HEENT: Atraumatic; normocephalic EYES; Anicteric, Normal Conjunctiva NECK; supple, normal thyroid, RESPIRATORY: Diminished to auscultation CARDIOVASCULAR: Regular S1 S2, GI: soft, normoactive bowel sounds, : No Renal angle tenderness; EXTREMITIES: Chronic stasis dermatitis with excoriation left lower extremity mid tibia MUSCULOSKELETAL: no muscle wasting NEURO: Awake; no lateralizing signs. SKIN: As described above PSYCH; Flat affect Assessment & Plan Assessment/Plan (1) FTT (failure to thrive) in adult: PLAN: Plan Patient is a 78-year-old gentleman presenting with profound generalized weakness 1. Acute debility ? Exacerbated by patient chronic back pain. Admitted to regular nursing floor requested for PT OT and psychiatric social worker supervisor to assist with discharge planning ? 06/13/2024 patient is scheduled to have PT/OT assessment. 2. Chronic back pain with recent L4-5 laminectomy with partial facetectomy and foraminotomy on 03/24/2024. Did continue patient home pain medication regimen 3. Paroxysmal A. fib ?Rate controlled on systemic anticoagulation with warfarin. INR is supratherapeutic, plan is to hold Coumadin with daily monitoring of INR ? INR still remains elevated we will continue to hold Coumadin for additional day. 4. Class II obesity with BMI of 36 ? Complicating care weight loss and 5. Hypertension - Blood pressure controlled, home medications continued with dose adjustment as needed 6. Coronary artery disease ?With previous history of CABG 7. History of prostate CA ?Patient is on leuprolide every 3 month as well as Xtandi daily 8. Dyslipidemia -Patient is on statin therapy, continued at home dose 9. DVT prophylaxis ?On systemic anticoagulation with Coumadin Time spent in the patient's overall evaluation,decision-making process, review of diagnostic data, adjustment of management, discussion with other providers, nursing nursing and ancillary staff involved in patient's care documentation, 35-minutes Charges/Coding Visit Charges Inpatient E&M: 82033 Subs Hosp L2
[2024-06-13 07:43] LABS: Anion Gap 5 (5-15); BUN 14 mg/dL (7-18); BUN/Creat Ratio 28.1 RATIO (10-20); Calcium,Total 8.4 mg/dL (8.5-10.1); Chloride 111 mmol/L (98-107); EST Glomerular Filtration Rate 172 mL/min (>60); Est Glom Filt Rate - Afr Amer 208 mL/min (>60); Estimated Creatinine Clearance 103.78 ml/min; Glucose 107 mg/dL (74-106); Magnesium 1.9 mg/dL (1.6-2.6); Phosphorus 2.9 mg/dL (2.5-4.9); Potassium 3.7 mmol/L (3.5-5.1); Sodium Level 145 mmol/L (136-145)
[2024-06-13 07:49] VITALS: O2SAT 94
[2024-06-13 08:06] VITALS: BP 137/73; PULSE 69; RESP 18; TEMP 36.9; O2SAT 97
[2024-06-13 08:16] VITALS: PULSE 69
[2024-06-13] MEDS: Metoprolol Tartrate 50 MG Tablet PO (08:16)
[2024-06-13] MEDS: Cholecalciferol (VIT D3) 25 MCG TABLET (1,000 UNITS) PO (08:16)
[2024-06-13] MEDS: Potassium Chloride Oral Tablet 20 MEQ PO (08:16)
--- NOTE | 2024-06-13 10:13 | CASEMGMT ---
Discharge Planning A list of SNF providers including quality and resource use data and consistent with the patient's preferred geographic region, medical needs, and insurance network was created in [facility] Guide.? This list was provided to the SW. Milagro Izaguirre Discharge Planning Asst.
[2024-06-13] MEDS: oxyCODONE 5 MG Tablet PO ×2 (10:26→16:04)
[2024-06-13] MEDS: Ondansetron ODT 4 MG Tablet PO (10:27)
--- NOTE | 2024-06-13 11:21 | CASEMGMT ---
Addendum entered by Nora Greenwood 06/13/24 12:25: Social Work TCU can take pt and will start precert, pt just needs to bring his chemo medications, and will not be able to get any injections while in TCU. 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 Plan: TCU, pending precert. TYSHAWN Powers Original Note: Social Work SW met w/pt in room regarding prior level of function and anticipated discharge plan. PCP: Dr. Pisano Specialists: Pt states multiple, at this time not ready to name them all. [facility]acy: [facility] Insurance/Prescription coverage: AARP Medicare LNOK: Brother in [place] Living arrangements: Pt lives home alone in a 2 bed, 2 bath apt, 4 steps into the building. Guillermo helps pt 2-3 times per week with cooking, cleaning, showering and shopping. Transportation: Guillermo Cruz takes pt to app. DME: Walker, lift chair, shower chair, hospital bed, grab bars, elevated toilet seat, bedside commode, wireless watcher LW/POA: Both on file, Guillermo Cruz is healthcare POA. HHC/SNF: Pt has been to [facility], to TCU. Pt has had home health care from [facility] and [facility]. Pt was attending outpt PT prior to this hospitalization. SW spoke w/pt about plan. He does feel too weak to go home. SW gave pt a list from [facility] of retirement facilities in network w/insurance, in pt's preferred geographic area, and complete w/quality and resource use data. Pt's preferences are 1. TCU and 2. [facility]. SW explained will make rferrals and let pt know who is able to take pt. Pt states understanding. SW sent referral to TCU, will continue to follow. TYSHAWN Powers
--- NOTE | 2024-06-13 11:38 | CASEMGMT ---
Met with patient to complete HOLLIS form. HOLLIS form explained to patient who voiced understanding and signed form. Original form placed in pt?s chart and copy provided to patient. Milagro Izaguirre, Discharge Planning Asst
--- NOTE | 2024-06-13 12:14 | WOUNDNOTE ---
wound photo: left lower leg
--- NOTE | 2024-06-13 14:58 | PCM.DC.SUM ---
Providers Date of Admission: 06/12/24 Date of Discharge: 06/13/24 Primary Care Physician: Dr. 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 Acute debility ? Exacerbated by patient chronic back pain. Admitted to regular nursing floor requested for PT OT and social sciences instructor to assist with discharge planning ? 06/13/2024 patient is scheduled to have PT/OT assessment. 2. Chronic back pain with recent L4-5 laminectomy with partial facetectomy and foraminotomy on 03/24/2024. Did continue patient home pain medication regimen 3. Paroxysmal A. fib ?Rate controlled on systemic anticoagulation with warfarin. INR is supratherapeutic, plan is to hold Coumadin with daily monitoring of INR ? INR still remains elevated we will continue to hold Coumadin for additional day. 4. Class II obesity with BMI of 36 ? Complicating care weight loss and 5. Hypertension - Blood pressure controlled, home medications continued with dose adjustment as needed 6. Coronary artery disease ?With previous history of CABG 7. History of prostate CA ?Patient is on leuprolide every 3 month as well as Xtandi daily 8. Dyslipidemia -Patient is on statin therapy, continued at home dose 9. DVT prophylaxis ?On systemic anticoagulation with Coumadin Time spent in the patient's overall evaluation,decision-making process, review of diagnostic data, adjustment of management, discussion with other providers, nursing nursing and ancillary staff involved in patient's care documentation, 35-minutes Medications at Discharge Home Medications potassium chloride 20 mEq tablet,extended release 20 meq PO DAILY supplement 12/03/18 cetirizine 10 mg capsule 10 mg PO DAILY Allergy 12/27/18 metoprolol tartrate 50 mg tablet 50 mg PO BID bp 03/15/19 cholecalciferol (vitamin D3) 1,250 mcg (50,000 unit) capsule 1,000 unit PO DAILY supplement 10/29/20 terazosin 10 mg capsule 10 mg PO QPM BPH 12/01/22 enzalutamide 40 mg tablet (Xtandi) 160 mg (4 x 40 mg) PO QPM Prostate #0 tabs 12/16/22 fluticasone propionate 50 mcg/actuation nasal spray,suspension 2 spray NASAL DAILY Allergies #0 grams 12/16/22 lidocaine 5 % topical patch 1 patch topical DAILY Pain 30 days #30 ea 12/16/22 atorvastatin 80 mg tablet 80 mg PO DAILY Cholesterol 03/12/24 furosemide 20 mg tablet 20 mg PO DAILY Edema 03/12/24 sennosides 8.6 mg-docusate sodium 50 mg tablet (Senna with Docusate Sodium) 2 tab-cap (2 x 8.6-50 mg) PO BID PRN constipation #30 tabs 03/12/24 ondansetron 4 mg disintegrating tablet 4 mg PO Q8H PRN nausea and vomiting #10 tabs 03/15/24 doxazosin 4 mg tablet (Cardura) 4 mg PO DAILY 03/21/24 oxycodone 5 mg tablet 2.5 - 5 mg (0.5 - 1 x 5 mg) PO Q6H PRN pain 5 days #20 tabs 03/26/24 citalopram 10 mg tablet 20 mg PO QHS depression 05/19/24 acetaminophen 500 mg tablet 1,000 mg (2 x 500 mg) PO Q8 #0 tabs 06/13/24 albuterol sulfate 2.5 mg/3 mL (0.083 %) solution for nebulization 2.5 mg (3 mL) inhalation Q2H PRN PRN SOB &/OR WHEEZING #0 mL 06/13/24 lidocaine 5 % topical patch 1 patch topical DAILY #0 ea 06/13/24 melatonin 3 mg tablet 3 mg PO QHS PRN PRN Insomnia #0 tabs 06/13/24 menthol 0.44 %-zinc oxide 20.6 % topical ointment (Calmoseptine) 1 applic topical TID #0 grams 06/13/24 warfarin 5 mg tablet 5 mg PO DAILY BLOOD THINNER #1 TAB 06/13/24 Physical Exam Narrative GENERAL: cooperative HEENT: Atraumatic; normocephalic EYES; Anicteric, Normal Conjunctiva NECK; supple, normal thyroid, RESPIRATORY: Diminished to auscultation CARDIOVASCULAR: Regular S1 S2, GI: soft, normoactive bowel sounds, : No Renal angle tenderness; EXTREMITIES: Chronic stasis dermatitis with excoriation left lower extremity mid tibia MUSCULOSKELETAL: no muscle wasting NEURO: Awake; no lateralizing signs. SKIN: As described above PSYCH; Flat affect Weight / BMI Weight Weight: 117.1 kg Body Mass Index (BMI) 34.9 ABG / Lab / Microbiology Data 06/13/24 06:25 06/13/24 06:25 Laboratory: Laboratory Results - last 24 hr 06/13/24 06:25: WBC 5.9, RBC 3.45 L, Hgb 10.3 L, Hct 31.7 L, MCV 91.9, MCH 29.9, MCHC 32.5, RDW Std Deviation 45.5 H, RDW Coeff of Dick 13.6, Plt Count 111 L, MPV 9.4, Immature Gran % (Auto) 0.500, Neut % (Auto) 69.2, Lymph % (Auto) 16.7 L, Mower % (Auto) 8.3, Eos % (Auto) 4.8, Baso % (Auto) 0.5, Absolute Neuts (auto) 4.1, Absolute Lymphs (auto) 0.98, Nucleated RBC % 0, PT 41.3 H, INR 4.4 H*, Sodium 145, Potassium 3.7, Chloride 111 H, Carbon Dioxide 29.0, Anion Gap 5, BUN 14, Creatinine 0.50 L, Estim Creat Clear Calc 103.78, Est GFR (MDRD) Af Amer 208, Est GFR (MDRD) Non-Af 172, BUN/Creatinine Ratio 28.1 H, Glucose 107 H, Calcium 8.4 L, Phosphorus 2.9, Magnesium 1.9 D/C Instructions Discharge Diet: No restrictions Discharge Activity: Return to Normal Activity Call your doctor if you observe: Fever of 101 or Higher, Shortness of breath, Fainting spells and Chest pain Meaningful Use Info Meaningful Use Meaningful Use Diagnoses (Choose all that apply): None applicable Ischemic Stroke Statin Dosing Therapy Reference: STATIN DOSE THERAPY REFERENCE: * Patients > 75 years receive moderate or high dose statin therapy. * Patients 75 years or YOUNGER should receive HIGH intensity statin dose unless contraindicated. You will be required to document reason for non-treatment if statin daily dose does not meet guidelines. HIGH DOSE STATIN THERAPY DAILY Atorvastatin > than or = to 40 mg Rosuvastatin > than or = to 20 mg Amlodipine + Atorvastatin > than or = to 2.5/40 mg Ezetimibe + Simvastatin 10/80 mg Simvastatin 80mg Discharge Plan Admission Admit Date/Time: 06/12/24 10:58 Attending Provider: Carlo Larsen Primary Care Provider: James Pisano Chi Discharge Orders/Prescriptions Prescriptions: New acetaminophen 500 mg Tablet 1,000 mg PO Q8 Qty: 0 0RF melatonin 3 mg Tablet 3 mg PO QHS PRN PRN (Reason: Insomnia) Qty: 0 0RF lidocaine 5 % Adhesive Patch,Medicated 1 patch topical DAILY Qty: 0 0RF Protocol: *Topical Application Instructions APPLICATION INSTRUCTIONS: 12 hours on 12 hours off menthol-zinc oxide [Calmoseptine] 0.44-20.6 % Ointment 1 applic topical TID Qty: 0 0RF Protocol: *Topical Application Instructions APPLICATION INSTRUCTIONS: cleft- to anus albuterol sulfate 2.5 mg /3 mL (0.083 %) Solution For Nebulization 2.5 mg inhalation Q2H PRN PRN (Reason: SOB &/OR WHEEZING) Qty: 0 0RF Continued potassium chloride 20 mEq tablet extended release 20 meq PO DAILY cholecalciferol (vitamin D3) 1,250 mcg (50,000 unit) capsule 1,000 unit PO DAILY metoprolol tartrate 50 mg tablet 50 mg PO BID doxazosin [Cardura] 4 mg tablet 4 mg PO DAILY cetirizine 10 MG capsule 10 mg PO DAILY terazosin 10 mg capsule 10 mg PO QPM citalopram 10 mg tablet 20 mg PO QHS lidocaine 5 % Adhesive Patch,Medicated 1 patch topical DAILY 30 Days Qty: 30 0RF Protocol: *Topical Application Instructions APPLICATION INSTRUCTIONS: chronic back pain fluticasone propionate 50 mcg/actuation [place],Suspension 2 spray NASAL DAILY Qty: 0 0RF Xtandi 40 mg Tablet 160 mg PO QPM Qty: 0 0RF sennosides-docusate sodium [Senna with Docusate Sodium] 8.6-50 mg tablet 2 tab-cap PO BID PRN (Reason: constipation) Qty: 30 0RF atorvastatin 80 mg tablet 80 mg PO DAILY furosemide 20 mg tablet 20 mg PO DAILY ondansetron 4 mg tablet,disintegrating 4 mg PO Q8H PRN (Reason: nausea and vomiting) Qty: 10 0RF oxycodone 5 mg Tablet 2.5 - 5 mg PO Q6H PRN (Reason: pain) 5 Days Qty: 20 0RF Changed warfarin 5 mg tablet 5 mg PO DAILY Qty: 1 0RF Protocol: Dose Management Condition: Thursday Dose/Route: 7.5 mg Instruction: 1.5 x 5 mg tablets Condition: Thursday Dose/Route: 7.5 mg Instruction: 1.5 x 5 mg tablets Condition: Thursday Dose/Route: 7.5 mg Instruction: 1.5 x 5 mg tablets Condition: Thursday Dose/Route: 7.5 mg Instruction: 1.5 x 5 mg tablets Condition: Dose/Route: 7.5 mg Instruction: 1.5 x 5 mg tablets Condition: Thursday Dose/Route: 7.5 mg Instruction: 1.5 x 5 mg tablets Condition: Thursday Dose/Route: 7.5 mg Instruction: 1.5 x 5 mg tablets Protocol Text: Adjustment Start Date: 06/02/24 INR Value: 2.3 INR Date: 06/02/24 Recheck Date: 06/30/24 Discontinued acetaminophen [8 Hour Pain Reliever] 650 mg tablet extended release 650 mg PO Q8H PRN (Reason: pain) Referrals / Follow Up: James Pisano Chi, MD [Primary Care Provider] - Disposition Disposition (needs filled in before D/C Order can be placed): Residential Facility Charges/Coding Visit Charges Inpatient E&M: 05950 Disch Hosp >30min
[2024-06-13 15:59] VITALS: BP 156/104; PULSE 82; RESP 18; TEMP 37; O2SAT 95
--- NOTE | 2024-06-13 16:03 | CASEMGMT ---
Social Work Pt was approved for TCU by insurance. SW let pt know, he is agreeable. SW let RN know. Discharge instructions and med list faxed to TCU. No further needs, pt to TCU, skilled today. TYSHAWN Powers
[2024-06-13] MEDS: Lidocaine 5% Patch 1 PATCH TOPICAL (16:06)
== END 2024-06-13 19:06 | disposition skilled nursing facility (03) ==
LOC: ED 11:04 → MS3 13:31
PROVIDERS: Admitting Provider Internal Medicine; Emergency Provider Emergency Medicine; PCP Family Medicine Geriatric Medicine; Visit Provider Internal Medicine
DX: R53.81 Other malaise (principal); I48.0 Paroxysmal atrial fibrillation; R62.7 Adult failure to thrive; I10 Essential (primary) hypertension; Z87.891 Personal history of nicotine dependence; Z79.01 Long term (current) use of anticoagulants; E78.00 Pure hypercholesterolemia, unspecified; I25.10 Atherosclerotic heart disease of native coronary artery without angina pectoris; M54.9 Dorsalgia, unspecified; Z79.899 Other long term (current) drug therapy; G89.29 Other chronic pain; E66.9 Obesity, unspecified; Z68.36 Body mass index [BMI] 36.0-36.9, adult
CPT/HCPCS: 36415; 71045; 80048; 80053; 81001; 83735; 83880; 84100; 84484; 85025; 85610; 93005; 94668; 96374; 96376; 97162; 97166; 99221; 99284; J7030; A4216; G0378; J2405

== ENCOUNTER 2024-06-13 19:15 | Inpatient (IN) | payer MEDICARE, SELFPAY ==
[2024-06-13 20:10] VITALS: O2SAT 94
--- NOTE | 2024-06-13 20:46 | NURSING ---
notified via phone of patient admit, also notified of duplicate lidocaine order on discharge med list, ok lidocaine 1 patch to lower back as ordered for lower back pain
--- NOTE | 2024-06-13 20:47 | NURSING ---
Contacted pharmacy regarding terazosin being interchanged to cardura 8mg QHS and patient currently ordered cardura 4mg QAm. Per pharmacy ok for cardura interchange to continue as ordered along with AM cardura.
--- NOTE | 2024-06-13 21:23 | HP.PCM_ITS ---
HPI - General General Date of Admission: 06/13/24 Date of Service: 06/14/24 Chief Complaint: Here for rehabilitation. HPI Narrative 06/12/2024 MEENAKSHI NI, is a 78 Male who presents to [facility] ED fall. Presented after fall via EMS. Usually walks with walker, loose stool for 1 week. Generalized weakness, slid OOB, unable to get up. Evaluation negative for acute event. Unable to walk, unable to go home. 06/12/2024 Admit [facility]. PT/OT Debility. Pain control for chronic low back pain. 06/13/2024 Generalized weakness. PT/OT SNF. 06/13/2024 Admit to TCU with debility, here for rehabilitation, strengthening, prior to discharge home alone. [facility] Medical History Preop testing History of Clostridium difficile infection Wears glasses Walker as ambulation aid Arthritis Prostate disease High cholesterol Former smoker Lymph edema History of stress test History of echocardiogram Cardiology follow-up encounter History of atrial fibrillation Diverticulosis Cancer Kidney stones CPAP (continuous positive airway pressure) dependence Sleep apnea Closed wedge compression fracture of T11 vertebra Debility Venous insufficiency (chronic) (peripheral) Onycholysis Ankle fracture, left Fall Atrial fibrillation Closed fracture of left hip Closed left humeral fracture Longstanding persistent atrial fibrillation Essential hypertension Former tobacco use Sepsis History of Clostridium difficile infection (01/09/19) Traumatic hemothorax (12/30/18) History of subdural hematoma (post traumatic) (12/27/18) Fracture of ninth thoracic vertebra (12/27/18) Hyperlipidemia Atherosclerotic heart disease of [place] coronary artery without angina pectoris 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 Home Medications ?Medication ?Instructions ?Recorded ?Last Taken ?Type potassium chloride 20 mEq 20 meq PO DAILY supplement 12/03/18 06/13/24 History tablet,extended release cetirizine 10 mg capsule 10 mg PO DAILY Allergy 12/27/18 03/16/24 History metoprolol tartrate 50 mg tablet 50 mg PO BID bp 03/15/19 06/13/24 History cholecalciferol (vitamin D3) 1,250 1,000 unit PO DAILY supplement 10/29/20 06/13/24 History mcg (50,000 unit) capsule terazosin 10 mg capsule 10 mg PO QPM BPH 12/01/22 06/12/24 History enzalutamide 40 mg tablet (Xtandi) 160 mg (4 x 40 mg) PO QPM Prostate 12/16/22 03/15/24 Rx #0 tabs fluticasone propionate 50 2 spray NASAL DAILY Allergies #0 12/16/22 03/16/24 Rx mcg/actuation nasal grams spray,suspension lidocaine 5 % topical patch 1 patch topical DAILY Pain 30 days 12/16/22 Unknown Rx #30 ea atorvastatin 80 mg tablet 80 mg PO DAILY Cholesterol 03/12/24 03/11/24 History furosemide 20 mg tablet 20 mg PO DAILY Edema 03/12/24 03/11/24 History sennosides 8.6 mg-docusate sodium 2 tab-cap (2 x 8.6-50 mg) PO BID 03/12/24 Unknown Rx 50 mg tablet (Senna with Docusate PRN constipation #30 tabs Sodium) ondansetron 4 mg disintegrating 4 mg PO Q8H PRN nausea and 03/15/24 06/13/24 10:25 Rx tablet vomiting #10 tabs doxazosin 4 mg tablet (Cardura) 4 mg PO DAILY heart 03/21/24 Unknown History oxycodone 5 mg tablet 2.5 - 5 mg (0.5 - 1 x 5 mg) PO Q6H 03/26/24 Unknown Rx PRN pain 5 days #20 tabs citalopram 10 mg tablet 20 mg PO QHS depression 05/19/24 06/12/24 History acetaminophen 500 mg tablet 1,000 mg (2 x 500 mg) PO Q8 pain 06/13/24 06/13/24 04:50 Rx #0 tabs albuterol sulfate 2.5 mg/3 mL 2.5 mg (3 mL) inhalation Q2H PRN 06/13/24 Unknown Rx (0.083 %) solution for nebulization PRN SOB &/OR WHEEZING #0 mL lidocaine 5 % topical patch 1 patch topical DAILY back pain #0 06/13/24 Unknown Rx ea melatonin 3 mg tablet 3 mg PO QHS PRN PRN Insomnia #0 06/13/24 Unknown Rx tabs menthol 0.44 %-zinc oxide 20.6 % 1 applic topical TID neo cleft 06/13/24 06/13/24 04:50 Rx topical ointment (Calmoseptine) to anus #0 grams warfarin 5 mg tablet 5 mg PO DAILY BLOOD THINNER #1 TAB 06/13/24 03/11/24 Rx Allergy/AdvReac Type Severity Reaction Status Date / Time amiodarone AdvReac Intermediate It did not Verified 05/19/24 13:06 work, also bad dreams and neuropathy Family History Father , Age 57 Myocardial infarction CAD (coronary artery disease) ETOH abuse Mother , Age 47, of bone cancer Bone cancer Brother , age 45, of AIDS AIDS (acquired immune deficiency syndrome) Surgical History History of colonoscopy History of cholecystectomy History of left hip hemiarthroplasty H/O cervical spine surgery (01/2020) H/O coronary artery bypass surgery (11/26/98) History of thoracic spinal fusion (12/30/18) History of left heart catheterization (11/26/98) Social History household members: none Smoking Status: Former smoker alcohol intake: current details: once a week substance use type: does not use ROS Constitutional Constitutional: Reports weakness; Denies chills, fever(s) or weight gain ENT HEENT: Denies headache(s), nasal congestion or nasal discharge Cardiovascular Cardiovascular: Denies chest pain or palpitations Respiratory/Chest Respiratory/Chest: Denies cough, excessive phlegm production or shortness of breath with exertion Gastrointestinal Gastrointestinal: Reports nausea; Denies abdominal pain or vomiting Genitourinary Genitourinary: Denies dysuria Musculoskeletal Musculoskeletal: Denies joint pain or joint swelling Integumentary Integumentary: Denies rash or wounds Neurologic Neurologic: Denies focal weakness, numbness or tingling Psychiatric Psychiatric: Denies anxiety, auditory hallucinations, depression, homicidal ideation or suicidal ideation Physical Exam Const alert General Appearance: cooperative HEENT normocephalic Eyes PERRL and EOMs intact bilaterally Neck supple, no JVD and no carotid bruits Resp normal respiratory effort, normal air movement and clear to auscultation bilaterally Cardio regular rate and regular rhythm GI normal to inspection, nondistended, normoactive bowel sounds, non-tender and non-distended Extremity normal capillary refill General Extremity: Negative for edema Skin no rashes or lesions noted General Skin Exam: no breakdown Psych affect normal Appearance: appropriate Results Lab / Micro Data 06/14/24 05:10 06/14/24 05:15 Assessment & Plan Assessment/Plan (1) Debility: (2) FTT (failure to thrive) in adult: (3) Generalized weakness: (4) Low back pain: (5) Prostate cancer: (6) Essential hypertension: (7) Hyperlipidemia: (8) Hypokalemia: (9) Allergic rhinitis: (10) Benign prostate hyperplasia: (11) Depression: (12) Atrial fibrillation: PLAN: Plan 78 year old male with below past medical history hospitalized for failure to thrive, admitted to TCU with debility, here for rehabilitation, strengthening, prior to discharge home alone. * Debility - PT/OT. * Pain - Tylenol 1000mg q8, Oxycodone 2.5-5mg q6 prn, Lidoderm 1 patch td daily. * Bowel - Senna/colace 2 tablets bid prn. * Adult immunization - Administer pneumonia vaccine, covid vaccine, flu vaccine as appropriate. * DVT prophylaxis - on warfarin. * Low back pain - Resident had lumbar surgery 03/24/2024, if no improvement, MRI LS spine. * COPD - Albuterol 2 puffs q2h prn. * Hyperlipidemia - Atorvastatin 80mg qhs. * Vitamin D deficiency - D3 25mcg daily. * Depression - Citalopram 20mg daily, stable chronic usp use, GDR not recommended. * BPH - Doxazosin 4mg daily, 8mg qhs. * Prostate cancer - Xtandi 160mg po qpm. * Allergic rhinitis - Flonase 2 sprays nasal daily, Loratadine 10mg daily. * Edema - Furosemide 20mg daily. * Insomnia - Melatonin 3mg qhs prn. * Skin irritation - Calmoseptine topical tid. * Atrial fibrillation - Metoprolol 50mg bid, Warfarin 5mg daily, follow INR. * Nausea - Zofran odt 4mg q8 prn. * Hypokalemia - KCL 20meq daily.
[2024-06-13 22:25] VITALS: BP 140/69; PULSE 102; RESP 16; TEMP 36.2; O2SAT 93
[2024-06-13 22:39] VITALS: BMI 35.6
[2024-06-13 22:41] VITALS: BP 135/75; PULSE 65; RESP 16; TEMP 36.1; O2SAT 94
[2024-06-13] MEDS: Ondansetron ODT 4 MG Tablet PO (22:58)
[2024-06-13 22:59] VITALS: BP 140/70; PULSE 90
[2024-06-13] MEDS: oxyCODONE 5 MG Tablet PO (22:59)
[2024-06-13] MEDS: Menthol/Lanolin/Calamine/Znox 113 GM Tube 1 APPLIC TOPICAL (22:59)
[2024-06-13] MEDS: Metoprolol Tartrate 50 MG Tablet PO (22:59)
[2024-06-13] MEDS: Doxazosin 4 MG Tablet 8 MG PO (23:00)
[2024-06-13] MEDS: Atorvastatin Calcium 80 MG Tablet PO (23:00)
[2024-06-13] MEDS: Citalopram 20 MG Tablet PO (23:00)
[2024-06-13] MEDS: Acetaminophen 500 MG Tablet 1000 MG PO (23:01)
[2024-06-13] MEDS: ENZALUTAMIDE 40 MG TABLET 160 MG PO (23:24)
[2024-06-14] MEDS: Acetaminophen 500 MG Tablet 1000 MG PO ×3 (05:26→20:56)
[2024-06-14] MEDS: Menthol/Lanolin/Calamine/Znox 113 GM Tube 1 APPLIC TOPICAL ×3 (05:26→21:02)
[2024-06-14 07:18] LABS: International Normalized Ratio 2.7; Prothrombin Time (Protime)PT. 28.6 SECONDS (11.7-14.9)
[2024-06-14 07:34] LABS: Absolute Lymphocyte Count 1.02 X10^3/uL (0.83-4.51); Absolute Neutrophil Count 4.1 X10^3/uL (2.0-7.7); Basophil# 0.03 X10^3/uL; Basophil% 0.5 % (0-1); Eosinophil# 0.18 X10^3/uL; Eosinophils% 3.1 % (0-5); Hematocrit 31.7 % (40-54); Hemoglobin 10.4 g/dL (13.0-16.5); Lymphocyte # 1.02 X10^3/ul (0.83-4.51); Lymphocyte % 17.5 % (19-41); Mean Corp Hgb Conc 32.8 g/dL (32-36); Mean Corpuscular Hgb 29.8 pg (27.0-32.0); Mean Corpuscular Volume 90.8 fL (80-94); Mean Platelet Vol. 9.3 fl (6.2-12.0); Monocyte# 0.46 X10^3/uL; Monocyte% 7.9 % (0-10); NRBC Flagged by Analyzer 0 % (0-5); Neutrophil # 4.12 X10^3/uL (2.7-7.7); Neutrophil % 70.8 % (47-70); Platelet Count 140 K/mm3 (150-450); RBC Distribution Width CV 13.3 % (11.6-14.6); Red Blood Count 3.49 M/mm3 (4.6-6.2); White Blood Count 5.8 K/mm3 (4.4-11.0)
[2024-06-14 07:49] LABS: Anion Gap 4 (5-15); BUN 12 mg/dL (7-18); BUN/Creat Ratio 23.9 RATIO (10-20); Calcium,Total 8.8 mg/dL (8.5-10.1); Chloride 109 mmol/L (98-107); EST Glomerular Filtration Rate 170 mL/min (>60); Est Glom Filt Rate - Afr Amer 206 mL/min (>60); Glucose 108 mg/dL (74-106); Potassium 3.8 mmol/L (3.5-5.1); Sodium Level 141 mmol/L (136-145)
[2024-06-14 08:11] VITALS: BP 131/77; PULSE 76; RESP 17; TEMP 36.6; O2SAT 94
[2024-06-14] MEDS: Potassium Chloride Oral Tablet 20 MEQ PO (08:16)
[2024-06-14] MEDS: Doxazosin 4 MG Tablet PO (08:16)
[2024-06-14] MEDS: Fluticasone 0.05% 1 SPRAY NASAL.SRY 2 SPRAY NASAL (08:17)
[2024-06-14] MEDS: Furosemide 20 MG Tablet PO (08:17)
[2024-06-14] MEDS: Loratadine 10 MG Tablet PO (08:17)
[2024-06-14] MEDS: Lidocaine 5% Patch 1 PATCH TOPICAL (08:17)
[2024-06-14 08:18] VITALS: PULSE 76
[2024-06-14] MEDS: Metoprolol Tartrate 50 MG Tablet PO ×2 (08:18→20:57)
[2024-06-14] MEDS: Nystatin Powder 15gm Bottle 1 APPLIC TOPICAL ×2 (08:18→21:02)
[2024-06-14] MEDS: Cholecalciferol (VIT D3) 25 MCG TABLET (1,000 UNITS) PO (08:18)
[2024-06-14] MEDS: oxyCODONE 5 MG Tablet PO (08:21)
[2024-06-14] MEDS: Ondansetron ODT 4 MG Tablet PO (08:21)
[2024-06-14] MEDS: Tuberculin,Purif.prot.deriv. 50 TU/ML Vial 0.1 ML ID (10:39)
[2024-06-14 11:11] VITALS: BMI 35.6
--- NOTE | 2024-06-14 14:14 | WOUNDNOTE ---
wound photo: left lower leg
--- NOTE | 2024-06-14 15:52 | PHA.CONS_ITS ---
Documented by User: Matilde Mason 06/14/24 16:25 TCU RX Drug Regimen Review Subjective/Objective Subjective/Objective: Subjective: TCU Admission. 78 YOM presented to the ER with a fall. Hospitalized for failure to thrive. Admitted to TCU with debility for strengthening and rehabilitation. Objective: Allergies amiodarone Adverse Reaction (Intermediate, Verified 05/19/24 13:06) It did not work, also bad dreams and neuropathy Current Medications Generic Name Dose Route Start Last Admin Trade Name Freq PRN Reason Stop Dose Admin Acetaminophen 1,000 mg 06/13/24 22:00 06/14/24 15:46 Acetaminophen 500 Mg Tablet PO 1,000 mg Q8 IVET Administration Albuterol Sulfate 2.5 mg 06/13/24 20:02 Albuterol 2.5 Mg/3 Ml Vial.Neb. INHALATION Q2H PRN PRN SOB &/OR WHEEZING Atorvastatin Calcium 80 mg 06/13/24 22:00 06/13/24 23:00 Atorvastatin Calcium 80 Mg Tablet PO 80 mg QHS IVET Administration Calamine/Phenol 1 applic 06/13/24 22:00 06/14/24 15:46 Menthol/Lanolin/Calamine/Znox 113 Gm Tube TOPICAL 1 applic TID IVET Administration Protocol Cholecalciferol 25 mcg 06/14/24 10:00 06/14/24 08:18 Cholecalciferol (Vit D3) 25 Mcg Tablet (1,000 Units) PO 25 mcg DAILY IVET Administration Citalopram Hydrobromide 20 mg 06/13/24 22:00 06/13/24 23:00 Citalopram 20 Mg Tablet PO 20 mg QHS IVET Administration Doxazosin Mesylate 4 mg 06/14/24 10:00 06/14/24 08:16 Doxazosin 4 Mg Tablet PO 4 mg DAILY IVET Administration Protocol Doxazosin Mesylate 8 mg 06/13/24 22:00 06/13/24 23:00 Doxazosin 4 Mg Tablet PO 8 mg QHS IVET Administration Fluticasone Propionate 2 spray 06/14/24 10:00 06/14/24 08:17 Fluticasone 0.05% 1 [place] Nasal.Sry NASAL 2 spray DAILY IVET Administration Furosemide 20 mg 06/14/24 10:00 06/14/24 08:17 Furosemide 20 Mg Tablet PO 20 mg DAILY IVET Administration Protocol Sodium Chloride 250 mls @ 15 mls/hr 06/13/24 22:42 IV .[id number] PRN Additional IVPB Infusion Sodium Chloride 250 mls @ 15 mls/hr 06/13/24 22:42 IV .[id number] PRN Saline Flush Lidocaine 1 patch 06/14/24 10:00 06/14/24 08:17 Lidocaine 5% Patch TOPICAL 1 patch DAILY IVET Administration Protocol Loratadine 10 mg 06/14/24 10:00 06/14/24 08:17 Loratadine 10 Mg Tablet PO 10 mg DAILY IVET Administration Melatonin 3 mg 06/13/24 20:07 Melatonin 3 Mg Tablet PO QHS PRN PRN Insomnia Metoprolol Tartrate 50 mg 06/13/24 22:00 06/14/24 08:18 Metoprolol Tartrate 50 Mg Tablet PO 50 mg BID [facility] Administration Protocol Nystatin 1 applic 06/14/24 10:00 06/14/24 08:18 Nystatin Powder 15gm Bottle TOPICAL 1 applic BID [facility] Administration Protocol Ondansetron HCl 4 mg 06/13/24 20:07 06/14/24 08:21 Ondansetron Odt 4 Mg Tablet PO 4 mg Q8H PRN Administration nausea and vomiting Oxycodone HCl 2.5 - 5 mg 06/13/24 20:07 06/14/24 08:21 Oxycodone 5 Mg Tablet PO 5 mg Q6H PRN Administration pain Potassium Chloride 20 meq 06/14/24 08:00 06/14/24 08:16 Potassium Chloride Oral Tablet 20 Meq PO 20 meq DAILYCM IVET Administration Senna/Docusate Sodium 2 tablet 06/13/24 20:07 Senna/Docusate Sodium 1 Tablet PO BID PRN constipation Sodium Chloride 10 - 40 ml 06/13/24 22:42 0.9% Saline Lock 10 Ml Syringe IV UD PRN SALINE FLUSH Tuberculin PPD 0.1 ml 06/21/24 10:00 Tuberculin,Purif.Prot.Deriv. 50 Tu/Ml Vial ID 06/21/24 10:01 X1 ONE Warfarin Sodium 5 mg 06/14/24 17:00 Warfarin 5 Mg Tablet PO DAILY@DINNER [facility] Problem List FTT (failure to thrive) in adult (Acute) Prostate cancer (Acute) Allergic rhinitis (Acute) Depression (Acute) Hyperlipidemia (Acute) Atrial fibrillation (Acute) Low back pain (Acute) Benign prostate hyperplasia (Acute) Hypokalemia (Acute) Debility (Acute) Generalized weakness (Acute) Essential hypertension (Chronic) Vital Signs Temp Pulse Resp BP Pulse Ox O2 Del Method 97.8 F 76 17 131/77 H 94 Room Air 06/14/24 08:11 06/14/24 08:18 06/14/24 08:11 06/14/24 08:11 06/14/24 08:11 06/14/24 11:16 Oxygen Delivery Method Room Air Weight: 119.34 kg Body Mass Index (BMI) 35.6 Sodium 141 mmol/L (136-145) 06/14/24 Unknown Potassium 3.8 mmol/L (3.5-5.1) 06/14/24 Unknown Chloride 109 mmol/L (98-107) H 06/14/24 Unknown Carbon Dioxide 28.0 mmol/L (21.0-32.0) 06/14/24 Unknown Anion Gap 4 (5-15) L 06/14/24 Unknown BUN 12 mg/dL (7-18) 06/14/24 Unknown Creatinine 0.50 mg/dL (0.70-1.30) L 06/14/24 Unknown Est GFR (MDRD) Af Amer 206 mL/min (>60) 06/14/24 Unknown Est GFR (MDRD) Non-Af 170 mL/min (>60) 06/14/24 Unknown BUN/Creatinine Ratio 23.9 RATIO (10-20) H 06/14/24 Unknown Glucose 108 mg/dL (74-106) H 06/14/24 Unknown Assessment/Plan: 1. Pain: acetaminophen 1000mg PO Q8, oxycodone 2.5-5mg PO Q6H PRN pain 1-10 and lidocaine 5% patch 1 patch topical daily. No doses of acetaminophen given. Resident has had 2 doses of oxycodone for pain scores of 5 and 7 in the back/hip. Please continue to monitor for increased pain PRN usage, constipation, increased pain, respiratory depression and rash. 2. Bowel: senna/docusate 2T PO BID PRN constipation. Last documented bowel movement 06/13. No PRN doses so far. Please continue to monitor for constipation and PRN usage. 3. Edema/atrial fibrillation: metoprolol tartrate 50mg PO BID, furosemide 20mg PO daily, warfarin 5mg PO dinner. Please continue to monitor BP (last 131/77), HR (last 76), potassium (last 3.8mmol/L), renal function, swelling, hemoglobin (last 10.4g/dL), INR 2.7, and S/S of bleeding. 4. Hyperlipidemia: atorvastatin 80mg PO QHS. Please continue to monitor LFTs (last 06/12/24), lipid panel (last 03/18/24) and muscle pain. 5. History of prostate cancer: Xtandi 160mg PO QHS. Please continue to monitor for S/S of confusion, fatigue, diarrhea, hot flashes and seizures. 6. BPH: doxazosin 4mg PO daily and 8mg PO QHS. Please continue to monitor for S/S of BPH and BP (last 131). 7. Allergic rhinitis: loratadine 10mg PO daily and fluticasone 0.05% nasal spray 2 spray nasal daily. Please continue to monitor for S/S of allergies, renal function, dry nares and thrush. 8. Hypokalemia: potassium chloride 20mEq PO daily. Please continue to monitor potassium (last 3.8mmol/L). 9 Nausea: ondansetron ODT 4mg PO Q8H PRN nausea/vomiting. Resident has had 2 doses so far. Please continue to monitor for S/S of nausea, vomiting, drowsiness and PRN usage. 10. COPD: albuterol MDI 2puff Q2H PRN shortness of breath/wheezing. Resident has not used any doses. Please continue to monitor for S/S of SOB/wheezing and PRN usage. 11. Vitamin D deficiency: cholecalciferol 25mcg PO daily. Please continue to monitor vitamin D levels (last 04/21/24). 12. Insomnia: melatonin 3mg PO QHS PRN insomnia. Resident has not used any doses. Please continue to monitor for PRN usage and insomnia. Assessment/Plan for indications treated with psychotropic medications: 1. Depression: citalopram 20mg PO QHS. Please see physician note regarding GDR. Please continue to monitor for suicidal ideation (black box warning), falls/fractures (BEERs medication) and sodium (last 141mmol/L). Medical chart and medication regimen reviewed. The following medication irregularities or issues were identified: None Date Date of Note:: 06/14/24 Documented by User: Dr. James Pisano MD 06/14/24 17:08 TCU RX Drug Regimen Review Provider Comments Provider responsibility Provider Comments to Recommendations by Pharmacy: Agree
--- NOTE | 2024-06-14 16:40 | CASEMGMT ---
Social Work SW met with patient to complete initial assessment. Pt known to this worker from previous stay. Verified/updated contacts. Patient confirmed code status as full code. Educated to [facility] insurance with NRD 06/15 and continued stay is not guaranteed with each review. Pt's goal is to return home at [facility] with two caregivers assistance throughout the week. SW will continue to follow for DC planning assistance. CHIDI LópezW
[2024-06-14] MEDS: 0.9% Saline Lock 10 ML Syringe IV ×2 (17:57→21:00)
[2024-06-14] MEDS: ENZALUTAMIDE 40 MG TABLET 160 MG PO (20:55)
[2024-06-14 20:57] VITALS: BP 113/69; PULSE 88
[2024-06-14] MEDS: Atorvastatin Calcium 80 MG Tablet PO (20:57)
[2024-06-14] MEDS: Citalopram 20 MG Tablet PO (20:57)
[2024-06-14] MEDS: Doxazosin 4 MG Tablet 8 MG PO (20:58)
--- NOTE | 2024-06-15 00:05 | NURSING ---
Patient called out and asked for his oxygen to be applied. Patient stated he wears 2L @HS, applied at this time. Tubing was hanging on the wall from prior shift.
[2024-06-15] MEDS: oxyCODONE 5 MG Tablet PO (04:52)
[2024-06-15] MEDS: Ondansetron ODT 4 MG Tablet PO (04:52)
[2024-06-15] MEDS: Acetaminophen 500 MG Tablet 1000 MG PO ×3 (05:01→21:03)
--- NOTE | 2024-06-15 08:54 | NURSING ---
Book[employer] Librarian Note; Activity Asset: Leslie Jaime is independent in his choice of daily activities. He has his smartphone he will watch tv and movies on or do puzzle games. He prefers to do independent activities over group how ever welcomes visits from the prize coordinator and therapy dog when available. Staff will remind him of weekly activities and respect his right to say no.
[2024-06-15] MEDS: Potassium Chloride Oral Tablet 20 MEQ PO (10:10)
[2024-06-15] MEDS: Loratadine 10 MG Tablet PO (10:10)
[2024-06-15] MEDS: Lidocaine 5% Patch 1 PATCH TOPICAL (10:11)
[2024-06-15] MEDS: Fluticasone 0.05% 1 SPRAY NASAL.SRY 2 SPRAY NASAL (10:11)
[2024-06-15] MEDS: Furosemide 20 MG Tablet PO (10:11)
[2024-06-15] MEDS: Doxazosin 4 MG Tablet PO (10:11)
[2024-06-15 10:13] VITALS: BP 112/58; PULSE 91
[2024-06-15] MEDS: Metoprolol Tartrate 50 MG Tablet PO ×2 (10:13→21:15)
[2024-06-15] MEDS: Cholecalciferol (VIT D3) 25 MCG TABLET (1,000 UNITS) PO (10:15)
[2024-06-15] MEDS: Nystatin Powder 15gm Bottle 1 APPLIC TOPICAL ×2 (10:16→21:17)
[2024-06-15 10:26] VITALS: BP 172/58; PULSE 91
[2024-06-15] MEDS: Menthol/Lanolin/Calamine/Znox 113 GM Tube 1 APPLIC TOPICAL ×2 (14:09→21:16)
[2024-06-15 14:58] VITALS: BP 98/58; PULSE 78; RESP 15; TEMP 36.6; O2SAT 87
[2024-06-15 17:57] VITALS: BP 110/80
[2024-06-15] MEDS: 0.9% Saline Lock 10 ML Syringe IV (17:57)
[2024-06-15 21:00] VITALS: BP 111/59; PULSE 94; RESP 18; TEMP 36.2; O2SAT 87
[2024-06-15] MEDS: ENZALUTAMIDE 40 MG TABLET 160 MG PO (21:01)
[2024-06-15] MEDS: Citalopram 20 MG Tablet PO (21:02)
[2024-06-15] MEDS: Doxazosin 4 MG Tablet 8 MG PO (21:02)
[2024-06-15] MEDS: Atorvastatin Calcium 80 MG Tablet PO (21:03)
[2024-06-15 21:15] VITALS: BP 111/59; PULSE 94
[2024-06-16] MEDS: oxyCODONE 5 MG Tablet PO (02:00)
[2024-06-16] MEDS: Acetaminophen 500 MG Tablet 1000 MG PO ×3 (05:49→22:09)
[2024-06-16] MEDS: Menthol/Lanolin/Calamine/Znox 113 GM Tube 1 APPLIC TOPICAL ×2 (05:50→13:34)
[2024-06-16 10:20] VITALS: O2SAT 94
[2024-06-16 10:30] VITALS: PULSE 81; RESP 18; O2SAT 94
[2024-06-16] MEDS: Loratadine 10 MG Tablet PO (10:34)
[2024-06-16] MEDS: Doxazosin 4 MG Tablet PO (10:34)
[2024-06-16] MEDS: Potassium Chloride Oral Tablet 20 MEQ PO (10:34)
[2024-06-16] MEDS: Furosemide 20 MG Tablet PO (10:35)
[2024-06-16] MEDS: Fluticasone 0.05% 1 SPRAY NASAL.SRY 2 SPRAY NASAL (10:35)
[2024-06-16 10:36] VITALS: BP 128/76; PULSE 81
[2024-06-16] MEDS: Lidocaine 5% Patch 1 PATCH TOPICAL (10:36)
[2024-06-16] MEDS: Metoprolol Tartrate 50 MG Tablet PO ×2 (10:36→22:09)
[2024-06-16] MEDS: Nystatin Powder 15gm Bottle 1 APPLIC TOPICAL ×2 (10:37→22:13)
[2024-06-16] MEDS: Cholecalciferol (VIT D3) 25 MCG TABLET (1,000 UNITS) PO (10:37)
[2024-06-16 10:41] VITALS: BP 128/76; PULSE 81; O2SAT 94
[2024-06-16] MEDS: 0.9% Saline Lock 10 ML Syringe IV (10:43)
[2024-06-16] MEDS: Glycerin/Hypromellose/PEG400 15 ml Bottle 2 DRP RIGHT EYE ×3 (10:50→18:08)
--- NOTE | 2024-06-16 11:33 | NURSING ---
PT UPDATED THAT THERE WAS ANOTHER PT THAT TESTED POSITIVE FOR COVID TODAY. CALLED PT BROTHER AND GOT ANSWER MACHINE, LEFT MESSAGE OF THE POSITIVE COVID.
[2024-06-16 15:17] VITALS: BP 118/60; PULSE 59; RESP 16; TEMP 36; O2SAT 91
[2024-06-16 17:23] LABS: International Normalized Ratio 1.5; Prothrombin Time (Protime)PT. 18.5 SECONDS (11.7-14.9)
[2024-06-16] MEDS: ENZALUTAMIDE 40 MG TABLET 160 MG PO (22:07)
[2024-06-16 22:09] VITALS: BP 131/81; PULSE 97
[2024-06-16] MEDS: Citalopram 20 MG Tablet PO (22:10)
[2024-06-16] MEDS: Doxazosin 4 MG Tablet 8 MG PO (22:10)
[2024-06-16] MEDS: Atorvastatin Calcium 80 MG Tablet PO (22:10)
[2024-06-17] VITALS (7 sets, daily range): BP systolic 106–144; BP diastolic 66–85; PULSE 80–97; RESP 16; TEMP 35.9; O2SAT 95
[2024-06-17] MEDS: oxyCODONE 5 MG Tablet PO ×2 (05:02→11:41)
[2024-06-17] MEDS: Acetaminophen 500 MG Tablet 1000 MG PO ×3 (05:02→21:16)
[2024-06-17] MEDS: Cholecalciferol (VIT D3) 25 MCG TABLET (1,000 UNITS) PO (07:53)
[2024-06-17] MEDS: Metoprolol Tartrate 50 MG Tablet PO ×2 (07:53→21:15)
[2024-06-17] MEDS: Furosemide 20 MG Tablet PO (07:53)
[2024-06-17] MEDS: Doxazosin 4 MG Tablet PO (07:53)
[2024-06-17] MEDS: Menthol/Lanolin/Calamine/Znox 113 GM Tube 1 APPLIC TOPICAL ×3 (07:54→21:10)
[2024-06-17] MEDS: Loratadine 10 MG Tablet PO (07:54)
[2024-06-17] MEDS: Potassium Chloride Oral Tablet 20 MEQ PO (07:54)
[2024-06-17] MEDS: Fluticasone 0.05% 1 SPRAY NASAL.SRY 2 SPRAY NASAL (07:55)
[2024-06-17] MEDS: Nystatin Powder 15gm Bottle 1 APPLIC TOPICAL ×2 (07:56→21:08)
[2024-06-17] MEDS: Lidocaine 5% Patch 1 PATCH TOPICAL (07:57)
[2024-06-17] MEDS: Diphenoxylate/Atrop 1 Tablet PO ×2 (11:29→16:28)
[2024-06-17] MEDS: Arthritis Pain Compound 60 CLICK TUBE TOPICAL ×2 (11:36→21:14)
--- NOTE | 2024-06-17 14:29 | CASEMGMT ---
Social Work BIMS () and PHQ-9 (03/05) completed for MDS assessment. Pt also wanted to discuss housing options as current apt has 11 steps to enter. Pt is open to AL, but not TVT. SW acknowledged and offered to assist with options. SW discussed Medicaid to assist in paying for AL and pt agreeable. SW offered to contact [facility], current apt, to inquire about different floor plans if there is another apt that does not require steps. Pt agreed. SW to also provide resources with other community living options. Pt stated he does want to remain with a 2 bedroom apt. Pt also inquired about mental health resources to begin counseling and virtual sessions, preferably. SW agreed and offered to assist during stay. CHIDI LópezW
--- NOTE | 2024-06-17 14:54 | CASEMGMT ---
Addendum entered by Key Sylvester 06/17/24 15:09: Social Work- SW provided printed resources for mental health providers, as well as housing information. SW had pt sign an authorization form for [facility] for referral. JOHN Nicole Original Note: Social Work- RAHEEM called [facility] and left a voicemail requesting collaboration for d/c planning. JOHN Nicole
[2024-06-17] MEDS: Warfarin 0.5 MG Tablet PO (16:54)
[2024-06-17] MEDS: ENZALUTAMIDE 40 MG TABLET 160 MG PO (21:13)
[2024-06-17] MEDS: Citalopram 20 MG Tablet PO (21:15)
[2024-06-17] MEDS: Atorvastatin Calcium 80 MG Tablet PO (21:15)
[2024-06-17] MEDS: Doxazosin 4 MG Tablet 8 MG PO (21:15)
[2024-06-18] MEDS: Acetaminophen 500 MG Tablet 1000 MG PO ×3 (05:25→21:08)
[2024-06-18] MEDS: Menthol/Lanolin/Calamine/Znox 113 GM Tube 1 APPLIC TOPICAL ×3 (05:26→20:57)
[2024-06-18] MEDS: Lidocaine 5% Patch 1 PATCH TOPICAL (10:03)
[2024-06-18] MEDS: Fluticasone 0.05% 1 SPRAY NASAL.SRY 2 SPRAY NASAL (10:04)
[2024-06-18 10:05] VITALS: BP 132/68; PULSE 87
[2024-06-18] MEDS: Loratadine 10 MG Tablet PO (10:05)
[2024-06-18] MEDS: Cholecalciferol (VIT D3) 25 MCG TABLET (1,000 UNITS) PO (10:05)
[2024-06-18] MEDS: Metoprolol Tartrate 50 MG Tablet PO ×2 (10:05→21:02)
[2024-06-18] MEDS: Doxazosin 4 MG Tablet PO (10:06)
[2024-06-18] MEDS: Potassium Chloride Oral Tablet 20 MEQ PO (10:06)
[2024-06-18] MEDS: Furosemide 20 MG Tablet PO (10:06)
[2024-06-18] MEDS: Arthritis Pain Compound 60 CLICK TUBE TOPICAL ×2 (10:07→21:00)
[2024-06-18] MEDS: Nystatin Powder 15gm Bottle 1 APPLIC TOPICAL ×2 (10:09→20:55)
[2024-06-18 12:43] VITALS: PULSE 92; RESP 16; O2SAT 94
[2024-06-18] MEDS: oxyCODONE 5 MG Tablet PO (13:45)
[2024-06-18 16:00] VITALS: BP 132/68; PULSE 92; RESP 16; TEMP 35.9; O2SAT 94
[2024-06-18] MEDS: Warfarin 0.5 MG Tablet PO (17:06)
[2024-06-18] MEDS: ENZALUTAMIDE 40 MG TABLET 160 MG PO (20:59)
[2024-06-18] MEDS: Doxazosin 4 MG Tablet 8 MG PO (21:01)
[2024-06-18] MEDS: Citalopram 20 MG Tablet PO (21:01)
[2024-06-18 21:02] VITALS: BP 143/77; PULSE 76
[2024-06-18] MEDS: Atorvastatin Calcium 80 MG Tablet PO (21:02)
[2024-06-18] MEDS: Senna/Docusate Sodium 1 Tablet 2 TABLET PO (21:09)
[2024-06-18 21:17] VITALS: BP 143/77; PULSE 76
[2024-06-19] MEDS: Acetaminophen 500 MG Tablet 1000 MG PO ×3 (05:29→21:17)
[2024-06-19] MEDS: Menthol/Lanolin/Calamine/Znox 113 GM Tube 1 APPLIC TOPICAL ×3 (05:29→21:09)
[2024-06-19] MEDS: Lidocaine 5% Patch 1 PATCH TOPICAL (06:47)
[2024-06-19 09:19] VITALS: PULSE 72
[2024-06-19] MEDS: Doxazosin 4 MG Tablet PO (09:19)
[2024-06-19] MEDS: Metoprolol Tartrate 50 MG Tablet PO ×2 (09:19→21:17)
[2024-06-19] MEDS: Potassium Chloride Oral Tablet 20 MEQ PO (09:19)
[2024-06-19] MEDS: Arthritis Pain Compound 60 CLICK TUBE TOPICAL ×2 (09:19→21:09)
[2024-06-19] MEDS: Fluticasone 0.05% 1 SPRAY NASAL.SRY 2 SPRAY NASAL (09:20)
[2024-06-19] MEDS: Cholecalciferol (VIT D3) 25 MCG TABLET (1,000 UNITS) PO (09:20)
[2024-06-19] MEDS: Loratadine 10 MG Tablet PO (09:20)
[2024-06-19] MEDS: Furosemide 20 MG Tablet PO (09:20)
[2024-06-19] MEDS: Nystatin Powder 15gm Bottle 1 APPLIC TOPICAL ×2 (09:22→21:10)
[2024-06-19 10:00] VITALS: RESP 16; O2SAT 95
[2024-06-19 14:01] VITALS: O2SAT 94
[2024-06-19 16:00] VITALS: BP 136/78; PULSE 80; RESP 18; TEMP 36.6; O2SAT 95
[2024-06-19] MEDS: Warfarin 0.5 MG Tablet PO (18:01)
[2024-06-19] MEDS: ENZALUTAMIDE 40 MG TABLET 160 MG PO (21:08)
[2024-06-19] MEDS: Doxazosin 4 MG Tablet 8 MG PO (21:10)
[2024-06-19] MEDS: Atorvastatin Calcium 80 MG Tablet PO (21:10)
[2024-06-19] MEDS: Citalopram 20 MG Tablet PO (21:10)
[2024-06-19 21:17] VITALS: BP 142/86; PULSE 78
[2024-06-20 06:08] LABS: International Normalized Ratio 1.5; Prothrombin Time (Protime)PT. 18.3 SECONDS (11.7-14.9)
[2024-06-20] MEDS: Menthol/Lanolin/Calamine/Znox 113 GM Tube 1 APPLIC TOPICAL ×3 (06:15→20:37)
[2024-06-20] MEDS: Acetaminophen 500 MG Tablet 1000 MG PO ×3 (06:15→20:42)
[2024-06-20 07:23] VITALS: O2SAT 94
--- NOTE | 2024-06-20 08:27 | NURSING ---
Van Driver Note; MDS for 06/20/2024 Complete
[2024-06-20] MEDS: Arthritis Pain Compound 60 CLICK TUBE TOPICAL ×2 (09:05→20:40)
[2024-06-20] MEDS: Fluticasone 0.05% 1 SPRAY NASAL.SRY 2 SPRAY NASAL (09:06)
[2024-06-20] MEDS: Loratadine 10 MG Tablet PO (09:06)
[2024-06-20] MEDS: Cholecalciferol (VIT D3) 25 MCG TABLET (1,000 UNITS) PO (09:06)
[2024-06-20] MEDS: Potassium Chloride Oral Tablet 20 MEQ PO (09:06)
[2024-06-20] MEDS: Doxazosin 4 MG Tablet PO (09:06)
[2024-06-20 09:07] VITALS: PULSE 81
[2024-06-20] MEDS: Lidocaine 5% Patch 1 PATCH TOPICAL (09:07)
[2024-06-20] MEDS: Furosemide 20 MG Tablet PO (09:07)
[2024-06-20] MEDS: Metoprolol Tartrate 50 MG Tablet PO ×2 (09:07→20:40)
[2024-06-20] MEDS: Nystatin Powder 15gm Bottle 1 APPLIC TOPICAL ×2 (09:08→20:37)
[2024-06-20 14:52] VITALS: BP 124/65; PULSE 80; RESP 20; TEMP 36.2; O2SAT 95
--- NOTE | 2024-06-20 17:41 | RAD_ITS ---
EXAM: XR LEFT KNEE, 3 VIEWS CLINICAL INDICATION: Pain. TECHNIQUE: Three views of the left knee. COMPARISON: 07/25/2023. FINDINGS: BONES/JOINTS: Marginal osteophytes of the patellofemoral and medial weightbearing compartments. Patellar enthesophytes. No acute fracture. No subluxation. Normal alignment. Preservation of the joint space. No sclerotic or destructive changes observed. SOFT TISSUES: Focal pretibial soft tissue swelling. Additional diffuse soft tissue edema. No radiopaque foreign body. VASCULATURE: Vascular calcifications. RAD/Knee 3 Views IMPRESSION: Focal pretibial soft tissue swelling. Additional diffuse soft tissue edema. Degenerative changes. No acute osseous findings. Electronically Signed: Nick Patel DO at 20:46 EDT ,
[2024-06-20 20:00] VITALS: PULSE 80; O2SAT 97
[2024-06-20] MEDS: ENZALUTAMIDE 40 MG TABLET 160 MG PO (20:39)
[2024-06-20 20:40] VITALS: BP 147/74; PULSE 74
[2024-06-20] MEDS: Doxazosin 4 MG Tablet 8 MG PO (20:41)
[2024-06-20] MEDS: Citalopram 20 MG Tablet PO (20:42)
[2024-06-20] MEDS: Atorvastatin Calcium 80 MG Tablet PO (20:42)
[2024-06-20 20:49] VITALS: BP 147/74; PULSE 74; O2SAT 97
[2024-06-21] MEDS: Menthol/Lanolin/Calamine/Znox 113 GM Tube 1 APPLIC TOPICAL ×2 (05:19→22:01)
[2024-06-21] MEDS: Acetaminophen 500 MG Tablet 1000 MG PO ×3 (05:20→22:05)
[2024-06-21 06:03] LABS: Absolute Lymphocyte Count 1.07 X10^3/uL (0.83-4.51); Absolute Neutrophil Count 2.8 X10^3/uL (2.0-7.7); Basophil# 0.02 X10^3/uL; Basophil% 0.4 % (0-1); Eosinophil# 0.33 X10^3/uL; Hematocrit 32.4 % (40-54); Hemoglobin 10.6 g/dL (13.0-16.5); Lymphocyte # 1.07 X10^3/ul (0.83-4.51); Lymphocyte % 22.6 % (19-41); Mean Corp Hgb Conc 32.7 g/dL (32-36); Mean Corpuscular Hgb 30.1 pg (27.0-32.0); Mean Platelet Vol. 8.5 fl (6.2-12.0); Monocyte# 0.47 X10^3/uL; Monocyte% 9.9 % (0-10); NRBC Flagged by Analyzer 0 % (0-5); Neutrophil # 2.83 X10^3/uL (2.7-7.7); Neutrophil % 59.9 % (47-70); Platelet Count 154 K/mm3 (150-450); RBC Distribution Width CV 13.7 % (11.6-14.6); RBC Distribution Width SD 45.9 fl (35.1-43.9); Red Blood Count 3.52 M/mm3 (4.6-6.2); White Blood Count 4.7 K/mm3 (4.4-11.0)
[2024-06-21 06:56] LABS: Anion Gap 5 (5-15); BUN 13 mg/dL (7-18); BUN/Creat Ratio 24.2 RATIO (10-20); Calcium,Total 8.5 mg/dL (8.5-10.1); Chloride 106 mmol/L (98-107); Creatinine, Serum 0.54 mg/dL (0.70-1.30); EST Glomerular Filtration Rate 158 mL/min (>60); Est Glom Filt Rate - Afr Amer 191 mL/min (>60); Estimated Creatinine Clearance 104.77 ml/min; Glucose 89 mg/dL (74-106); Potassium 3.6 mmol/L (3.5-5.1); Sodium Level 141 mmol/L (136-145)
[2024-06-21] MEDS: Arthritis Pain Compound 60 CLICK TUBE TOPICAL ×2 (08:14→22:04)
[2024-06-21] MEDS: Fluticasone 0.05% 1 SPRAY NASAL.SRY 2 SPRAY NASAL (08:14)
[2024-06-21] MEDS: Lidocaine 5% Patch 1 PATCH TOPICAL (08:14)
[2024-06-21 08:15] VITALS: PULSE 70
[2024-06-21] MEDS: Loratadine 10 MG Tablet PO (08:15)
[2024-06-21] MEDS: Metoprolol Tartrate 50 MG Tablet PO ×2 (08:15→22:07)
[2024-06-21] MEDS: Potassium Chloride Oral Tablet 20 MEQ PO (08:15)
[2024-06-21] MEDS: Cholecalciferol (VIT D3) 25 MCG TABLET (1,000 UNITS) PO (08:15)
[2024-06-21] MEDS: Furosemide 20 MG Tablet PO (08:16)
[2024-06-21] MEDS: Doxazosin 4 MG Tablet PO (08:16)
[2024-06-21] MEDS: Nystatin Powder 15gm Bottle 1 APPLIC TOPICAL ×2 (08:22→22:07)
[2024-06-21 10:00] VITALS: PULSE 72; RESP 14; O2SAT 96
[2024-06-21 11:11] VITALS: BMI 35.9
[2024-06-21] MEDS: Tuberculin,Purif.prot.deriv. 50 TU/ML Vial 0.1 ML ID (15:46)
--- NOTE | 2024-06-21 15:58 | NURSING ---
Updated patient that a staff member tested positive for covid. He did not want family updated.
[2024-06-21 16:00] VITALS: BP 145/65; PULSE 78; RESP 16; TEMP 36.1; O2SAT 96
[2024-06-21] MEDS: ENZALUTAMIDE 40 MG TABLET 160 MG PO (22:04)
[2024-06-21] MEDS: Citalopram 20 MG Tablet PO (22:06)
[2024-06-21] MEDS: Atorvastatin Calcium 80 MG Tablet PO (22:06)
[2024-06-21] MEDS: Doxazosin 4 MG Tablet 8 MG PO (22:06)
[2024-06-21 22:07] VITALS: BP 141/84; PULSE 79
[2024-06-21 22:16] VITALS: BP 141/84; PULSE 79
[2024-06-22] MEDS: Acetaminophen 500 MG Tablet 1000 MG PO ×3 (05:04→21:24)
[2024-06-22] MEDS: Menthol/Lanolin/Calamine/Znox 113 GM Tube 1 APPLIC TOPICAL ×3 (05:04→21:26)
[2024-06-22] MEDS: Potassium Chloride Oral Tablet 20 MEQ PO (10:05)
[2024-06-22] MEDS: Arthritis Pain Compound 60 CLICK TUBE TOPICAL ×2 (10:06→21:22)
[2024-06-22] MEDS: Loratadine 10 MG Tablet PO (10:07)
[2024-06-22] MEDS: Fluticasone 0.05% 1 SPRAY NASAL.SRY 2 SPRAY NASAL (10:07)
[2024-06-22] MEDS: Doxazosin 4 MG Tablet PO (10:07)
[2024-06-22 10:08] VITALS: BP 130/70; PULSE 86
[2024-06-22] MEDS: Lidocaine 5% Patch 1 PATCH TOPICAL (10:08)
[2024-06-22] MEDS: Metoprolol Tartrate 50 MG Tablet PO ×2 (10:08→21:24)
[2024-06-22] MEDS: Furosemide 20 MG Tablet PO (10:08)
[2024-06-22] MEDS: Nystatin Powder 15gm Bottle 1 APPLIC TOPICAL ×2 (10:09→21:27)
[2024-06-22] MEDS: Cholecalciferol (VIT D3) 25 MCG TABLET (1,000 UNITS) PO (10:09)
[2024-06-22 10:21] VITALS: BP 130/70; PULSE 86
--- NOTE | 2024-06-22 10:24 | CASEMGMT ---
Social Work IDT met with patient and left VM with brother, for care plan meeting. Discussed patient's progress in PT/OT/SN. Educated to [facility] insurance with NRD 06/27, EDC 06/30. Provided pt/family written communication on insurance process and copay coverage during the stay. SW discussed pt's DC plans. SW phoned [facility] yesterday and left . Have not received return call. RAHEEM informed pt that per Martha, pt is over resources for AL Waiver qualifications, but would qualify for LTC Medicaid. Sw offered pt initially DC to a SNF until another apt that is accessible can be secured. Pt unsure, but will review the resources this worker previously provided, and asked for SW to f/u in a few days. SW agreed. Will continue to follow. Ritika Petty, PREPARATION SUPERVISOR CANNING ENROLLMENT PROCESSOR
[2024-06-22 16:00] VITALS: BP 141/78; PULSE 74; RESP 16; TEMP 35.3; O2SAT 95
[2024-06-22] MEDS: ENZALUTAMIDE 40 MG TABLET 160 MG PO (21:20)
[2024-06-22 21:24] VITALS: BP 141/85; PULSE 78
[2024-06-22] MEDS: Atorvastatin Calcium 80 MG Tablet PO (21:24)
[2024-06-22] MEDS: Citalopram 20 MG Tablet PO (21:24)
[2024-06-22] MEDS: Doxazosin 4 MG Tablet 8 MG PO (21:25)
[2024-06-23] MEDS: Acetaminophen 500 MG Tablet 1000 MG PO ×3 (05:45→21:12)
[2024-06-23] MEDS: Menthol/Lanolin/Calamine/Znox 113 GM Tube 1 APPLIC TOPICAL ×3 (05:47→21:17)
[2024-06-23 05:49] LABS: International Normalized Ratio 1.5; Prothrombin Time (Protime)PT. 18.3 SECONDS (11.7-14.9)
[2024-06-23] MEDS: Potassium Chloride Oral Tablet 20 MEQ PO (08:22)
[2024-06-23] MEDS: Loratadine 10 MG Tablet PO (08:23)
[2024-06-23] MEDS: Doxazosin 4 MG Tablet PO (08:23)
[2024-06-23] MEDS: Fluticasone 0.05% 1 SPRAY NASAL.SRY 2 SPRAY NASAL (08:23)
[2024-06-23 08:24] VITALS: BP 145/85; PULSE 73
[2024-06-23] MEDS: Furosemide 20 MG Tablet PO (08:24)
[2024-06-23] MEDS: Metoprolol Tartrate 50 MG Tablet PO ×2 (08:24→21:11)
[2024-06-23] MEDS: Cholecalciferol (VIT D3) 25 MCG TABLET (1,000 UNITS) PO (08:25)
[2024-06-23 08:28] VITALS: BP 145/85; PULSE 73
[2024-06-23] MEDS: Arthritis Pain Compound 60 CLICK TUBE TOPICAL ×2 (11:53→21:16)
[2024-06-23] MEDS: Nystatin Powder 15gm Bottle 1 APPLIC TOPICAL ×2 (11:55→21:17)
[2024-06-23] MEDS: Lidocaine 5% Patch 1 PATCH TOPICAL (11:55)
[2024-06-23 14:20] VITALS: PULSE 81; RESP 18; O2SAT 93
[2024-06-23 14:31] VITALS: BP 128/76; PULSE 77; RESP 18; TEMP 36.2; O2SAT 95
[2024-06-23 21:11] VITALS: BP 148/80; PULSE 78; RESP 18; O2SAT 96
[2024-06-23] MEDS: Citalopram 20 MG Tablet PO (21:12)
[2024-06-23] MEDS: ENZALUTAMIDE 40 MG TABLET 160 MG PO (21:12)
[2024-06-23] MEDS: Doxazosin 4 MG Tablet 8 MG PO (21:12)
[2024-06-23] MEDS: Atorvastatin Calcium 80 MG Tablet PO (21:12)
[2024-06-24] MEDS: Acetaminophen 500 MG Tablet 1000 MG PO ×3 (06:49→22:41)
--- NOTE | 2024-06-24 08:15 | MDS.RN ---
Information for the MDS was obtained from review of the clinical record, interview of resident, staff, and direct observation of resident?s care.
[2024-06-24] MEDS: Potassium Chloride Oral Tablet 20 MEQ PO (08:24)
[2024-06-24 08:55] VITALS: PULSE 77; RESP 16; O2SAT 93
[2024-06-24] MEDS: Loratadine 10 MG Tablet PO (09:24)
[2024-06-24] MEDS: Lidocaine 5% Patch 1 PATCH TOPICAL (09:24)
[2024-06-24] MEDS: Furosemide 20 MG Tablet PO (09:25)
[2024-06-24] MEDS: Doxazosin 4 MG Tablet PO (09:25)
[2024-06-24] MEDS: Arthritis Pain Compound 60 CLICK TUBE TOPICAL ×2 (09:25→22:45)
[2024-06-24] MEDS: Cholecalciferol (VIT D3) 25 MCG TABLET (1,000 UNITS) PO (09:25)
[2024-06-24] MEDS: Fluticasone 0.05% 1 SPRAY NASAL.SRY 2 SPRAY NASAL (09:26)
[2024-06-24 09:28] VITALS: BP 118/65; PULSE 71
[2024-06-24] MEDS: Metoprolol Tartrate 50 MG Tablet PO ×2 (09:28→22:42)
[2024-06-24] MEDS: Nystatin Powder 15gm Bottle 1 APPLIC TOPICAL ×2 (09:30→22:44)
[2024-06-24] MEDS: Menthol/Lanolin/Calamine/Znox 113 GM Tube 1 APPLIC TOPICAL (14:48)
--- NOTE | 2024-06-24 14:48 | CASEMGMT ---
Social Work SW followed up with pt at bedside to discuss new housing and DC plans. Pt stated he called [facility], which have a 1.5 year waiting list, and [facility] never called pt back after two attempts. Pt unsure what the plan will be, though he is practicing steps in PT daily. SW encouraged pt to contact the many other apts listed in the resource packet provided by this worker. Though, SW redirected pt to focusing on the immediate discharge plan from TCU, as it is highly unlikely pt will be able to move into a new apt in a week or less, and may not be able to complete the 11 steps need to enter/exit apt. SW offered to contact [facility] again to screen for SNF Medicaid and have pt admit to a SNF Medicaid pending, until a more permanent living situation is established. Pt agreed. SW provided printed list of [facility] SNFs that are INN with quality and resource data via [employer] Guide. Pt to review and notify this worker of choices. Pt expressed feeling down d/t change in lifestyle and functional abilities. SW empathized and provided emotional support. SW offered to contact counseling agency of pt's choice [place], as previously discussed. Pt stated he connected with a service through [facility] to receive virtual counseling and has an appt scheduled for 07/01. SW praised pt for securing counseling services and taking iniaitive for improvement in his mood. SW sent secure email to Paula at [facility] for screening. SW will continue to follow. CHIDI López
[2024-06-24 16:29] VITALS: BP 136/75; PULSE 68; RESP 18; TEMP 36.2; O2SAT 92
[2024-06-24 22:42] VITALS: BP 160/88; PULSE 80
[2024-06-24] MEDS: Doxazosin 4 MG Tablet 8 MG PO (22:42)
[2024-06-24] MEDS: Citalopram 20 MG Tablet PO (22:43)
[2024-06-24] MEDS: Atorvastatin Calcium 80 MG Tablet PO (22:43)
[2024-06-24] MEDS: ENZALUTAMIDE 40 MG TABLET 160 MG PO (22:45)
[2024-06-25] MEDS: Acetaminophen 500 MG Tablet 1000 MG PO ×3 (06:28→20:43)
[2024-06-25] MEDS: Fluticasone 0.05% 1 SPRAY NASAL.SRY 2 SPRAY NASAL (08:41)
[2024-06-25] MEDS: Arthritis Pain Compound 60 CLICK TUBE TOPICAL ×2 (08:41→20:40)
[2024-06-25] MEDS: Lidocaine 5% Patch 1 PATCH TOPICAL (08:43)
[2024-06-25] MEDS: Potassium Chloride Oral Tablet 20 MEQ PO (08:44)
[2024-06-25] MEDS: Loratadine 10 MG Tablet PO (08:44)
[2024-06-25] MEDS: Doxazosin 4 MG Tablet PO (08:44)
[2024-06-25 08:45] VITALS: BP 110/57; PULSE 76
[2024-06-25] MEDS: Furosemide 20 MG Tablet PO (08:45)
[2024-06-25] MEDS: Metoprolol Tartrate 50 MG Tablet PO ×2 (08:45→20:45)
[2024-06-25] MEDS: Nystatin Powder 15gm Bottle 1 APPLIC TOPICAL ×2 (08:45→20:43)
[2024-06-25] MEDS: Cholecalciferol (VIT D3) 25 MCG TABLET (1,000 UNITS) PO (08:46)
[2024-06-25] MEDS: Petrolatum 33% Tube 1 APPLIC TOPICAL ×2 (08:47→20:41)
[2024-06-25 08:57] VITALS: BP 110/57; PULSE 76
[2024-06-25 14:58] VITALS: BP 133/79; PULSE 69; RESP 16; TEMP 35.9; O2SAT 95
[2024-06-25] MEDS: ENZALUTAMIDE 40 MG TABLET 160 MG PO (20:40)
[2024-06-25] MEDS: Menthol/Lanolin/Calamine/Znox 113 GM Tube 1 APPLIC TOPICAL (20:40)
[2024-06-25] MEDS: Citalopram 20 MG Tablet PO (20:41)
[2024-06-25] MEDS: Doxazosin 4 MG Tablet 8 MG PO (20:41)
[2024-06-25] MEDS: Atorvastatin Calcium 80 MG Tablet PO (20:42)
[2024-06-25 20:45] VITALS: BP 150/79; PULSE 86
[2024-06-25 20:49] VITALS: BP 150/79; PULSE 86
[2024-06-26] MEDS: Acetaminophen 500 MG Tablet 1000 MG PO ×3 (06:29→21:00)
[2024-06-26] MEDS: Lidocaine 5% Patch 1 PATCH TOPICAL (08:17)
[2024-06-26] MEDS: Potassium Chloride Oral Tablet 20 MEQ PO (08:18)
[2024-06-26] MEDS: Arthritis Pain Compound 60 CLICK TUBE TOPICAL ×2 (08:19→20:53)
[2024-06-26] MEDS: Doxazosin 4 MG Tablet PO (08:20)
[2024-06-26] MEDS: Fluticasone 0.05% 1 SPRAY NASAL.SRY 2 SPRAY NASAL (08:21)
[2024-06-26] MEDS: Furosemide 20 MG Tablet PO (08:21)
[2024-06-26] MEDS: Loratadine 10 MG Tablet PO (08:21)
[2024-06-26 08:22] VITALS: BP 139/70; PULSE 83
[2024-06-26] MEDS: Metoprolol Tartrate 50 MG Tablet PO ×2 (08:22→20:59)
[2024-06-26] MEDS: Nystatin Powder 15gm Bottle 1 APPLIC TOPICAL ×2 (08:23→20:55)
[2024-06-26] MEDS: Cholecalciferol (VIT D3) 25 MCG TABLET (1,000 UNITS) PO (08:23)
[2024-06-26] MEDS: Petrolatum 33% Tube 1 APPLIC TOPICAL ×2 (08:24→20:54)
[2024-06-26] MEDS: Diphenoxylate/Atrop 1 Tablet PO (08:27)
[2024-06-26 08:35] VITALS: BP 139/70; PULSE 83
[2024-06-26 10:40] VITALS: PULSE 72; RESP 18; O2SAT 95
[2024-06-26] MEDS: Menthol/Lanolin/Calamine/Znox 113 GM Tube 1 APPLIC TOPICAL ×2 (13:36→20:53)
[2024-06-26 14:14] VITALS: BP 112/60; PULSE 68; RESP 14; TEMP 36; O2SAT 94
[2024-06-26] MEDS: ENZALUTAMIDE 40 MG TABLET 160 MG PO (20:52)
[2024-06-26] MEDS: Atorvastatin Calcium 80 MG Tablet PO (20:54)
[2024-06-26] MEDS: Doxazosin 4 MG Tablet 8 MG PO (20:54)
[2024-06-26] MEDS: Citalopram 20 MG Tablet PO (20:54)
[2024-06-26 20:59] VITALS: BP 143/69; PULSE 84
[2024-06-27] MEDS: Menthol/Lanolin/Calamine/Znox 113 GM Tube 1 APPLIC TOPICAL ×3 (06:14→22:44)
[2024-06-27] MEDS: Acetaminophen 500 MG Tablet 1000 MG PO ×3 (06:15→22:46)
[2024-06-27 06:56] LABS: International Normalized Ratio 1.4; Prothrombin Time (Protime)PT. 16.9 SECONDS (11.7-14.9)
[2024-06-27 09:00] VITALS: BP 126/62; PULSE 86; RESP 18; TEMP 35.9; O2SAT 82
[2024-06-27] MEDS: Fluticasone 0.05% 1 SPRAY NASAL.SRY 2 SPRAY NASAL (09:19)
[2024-06-27 09:20] VITALS: PULSE 86
[2024-06-27] MEDS: Loratadine 10 MG Tablet PO (09:20)
[2024-06-27] MEDS: Metoprolol Tartrate 50 MG Tablet PO ×2 (09:20→22:47)
[2024-06-27] MEDS: Potassium Chloride Oral Tablet 20 MEQ PO (09:20)
[2024-06-27] MEDS: Arthritis Pain Compound 60 CLICK TUBE TOPICAL ×2 (09:20→22:47)
[2024-06-27] MEDS: Lidocaine 5% Patch 1 PATCH TOPICAL (09:21)
[2024-06-27] MEDS: Doxazosin 4 MG Tablet PO (09:21)
[2024-06-27] MEDS: Cholecalciferol (VIT D3) 25 MCG TABLET (1,000 UNITS) PO (09:21)
[2024-06-27] MEDS: Furosemide 20 MG Tablet PO (09:21)
[2024-06-27] MEDS: Petrolatum 33% Tube 1 APPLIC TOPICAL ×2 (09:22→22:44)
[2024-06-27] MEDS: Nystatin Powder 15gm Bottle 1 APPLIC TOPICAL ×2 (09:22→22:45)
--- NOTE | 2024-06-27 15:08 | CASEMGMT ---
Social Work SW spoke with Paula at [facility] about pt's eligibility. Pt is over resources and needs to spend down funds and needs a QIT, but still offered to submit application to receive a pending case number. SW spoke with pt at bedside to follow up on outcome and DC plans. Pt stated he does not want to deplete his savings and have nothing left to live off of. Pt is still understanding he needs to continue finding another apartment without steps, but currently, pt wants to return home. Pt does not want to pay OOP for a SNF and is reporting he has completed a flight of steps in therapy today. Pt is going to continue practicing steps and will feel comfortable returning home at DC, with ongoing therapy to maintain strength for steps. Pt is requesting another week of therapy in TCU for optimal results. SW noted the insurance update was sent today and will notify pt of outcome. Pt expressed understanding and appreciative of this worker's assistance. SW will continue to follow. Ritika Petty, FLORAL MERCHANDISER ONLINE MARKETING SPECIALIST
--- NOTE | 2024-06-27 17:26 | CON.PCM.SX_ITS ---
Assessment & Plan Assessment/Plan (1) Sebaceous cyst: PLAN: Patient is a 78-year-old male who is presently in recovery with the transitional care unit following a ground-level fall at home who exhibits evidence of an inflamed sebaceous cyst to his left upper back. Patient estimates that he has been with symptoms for at least the last 1 month. He has a history of sebaceous cysts and questions whether or not the area of focus may actually be a recurrence of a prior I&D'd sebaceous cyst. I have given the option of either bedside incision and drainage procedure versus antibiotics now followed by an excisional procedure likely as an outpatient in our office. I shared with him the trade off between hopefully immediate relief and yet need to keep a open/draining wound versus trying to proceed with a complete excision once the inflammation has subsided and then being able to close the wound primarily thereafter. Ultimately, Mr. Ni expressed indecision and I recommended the latter. Thus I recommend initiation of empiric antibiotic with good skin dale coverage. Will plan to reassess tomorrow but at this time recommend a self-limited course and then outpatient follow-up in the general surgery clinic so we can pursue complete excision. Devon Lynn MD General Surgery Endocrine Surgery Pager: [facility] [address] [place] [address], [address] [place] [address] Office: [phone] HPI Consult Data Date of Consult: 06/27/24 HPI Narrative Reason for Consultation: Sebaceous cyst HPI Narrative: MEENAKSHI NI, is a 78 M who is currently undergoing rehab at the transitional care unit following a ground-level fall at his home on 06/12/2024. He shares that he is making progress and nursing is pleased with his healing to the wounds of his lower extremity. However, he raised the issue that he is having some irritation to his left upper back and upon examination by Dr. Pisano he was determined to have an inflamed sebaceous cyst. Mr. Ni states that he had a sebaceous cyst lanced many years ago on his back and is uncertain if this represents a recurrence of that cyst or an entirely new area. He also acknowledges that his father had many such lesions during his lifetime. When asked to recall how long this irritation has been ongoing, Mr. Ni estimates that it has been at least 1 month of an itchy feeling. [facility] Medical History Preop testing History of Clostridium difficile infection Wears glasses Walker as ambulation aid Arthritis Prostate disease High cholesterol Former smoker Lymph edema History of stress test History of echocardiogram Cardiology follow-up encounter History of atrial fibrillation Diverticulosis Cancer Kidney stones CPAP (continuous positive airway pressure) dependence Sleep apnea Closed wedge compression fracture of T11 vertebra Debility Venous insufficiency (chronic) (peripheral) Onycholysis Ankle fracture, left Fall Atrial fibrillation Closed fracture of left hip Closed left humeral fracture Longstanding persistent atrial fibrillation Essential hypertension Former tobacco use Sepsis History of Clostridium difficile infection (01/09/19) Traumatic hemothorax (12/30/18) History of subdural hematoma (post traumatic) (12/27/18) Fracture of ninth thoracic vertebra (12/27/18) Hyperlipidemia Atherosclerotic heart disease of [place] coronary artery without angina pectoris assisted (current) use of anticoagulants Home Medications ?Medication ?Instructions ?Recorded ?Last Taken ?Type potassium chloride 20 mEq 20 meq PO DAILY supplement 12/03/18 06/13/24 History tablet,extended release cetirizine 10 mg capsule 10 mg PO DAILY Allergy 12/27/18 03/16/24 History metoprolol tartrate 50 mg tablet 50 mg PO BID bp 03/15/19 06/13/24 History cholecalciferol (vitamin D3) 1,250 1,000 unit PO DAILY supplement 10/29/20 06/13/24 History mcg (50,000 unit) capsule terazosin 10 mg capsule 10 mg PO QPM BPH 12/01/22 06/12/24 History enzalutamide 40 mg tablet (Xtandi) 160 mg (4 x 40 mg) PO QPM Prostate 12/16/22 03/15/24 Rx #0 tabs fluticasone propionate 50 2 spray NASAL DAILY Allergies #0 12/16/22 03/16/24 Rx mcg/actuation nasal grams spray,suspension lidocaine 5 % topical patch 1 patch topical DAILY Pain 30 days 12/16/22 Unknown Rx #30 ea atorvastatin 80 mg tablet 80 mg PO DAILY Cholesterol 03/12/24 03/11/24 History furosemide 20 mg tablet 20 mg PO DAILY Edema 03/12/24 03/11/24 History sennosides 8.6 mg-docusate sodium 2 tab-cap (2 x 8.6-50 mg) PO BID 03/12/24 Unknown Rx 50 mg tablet (Senna with Docusate PRN constipation #30 tabs Sodium) ondansetron 4 mg disintegrating 4 mg PO Q8H PRN nausea and 03/15/24 06/13/24 10:25 Rx tablet vomiting #10 tabs doxazosin 4 mg tablet (Cardura) 4 mg PO DAILY heart 03/21/24 Unknown History oxycodone 5 mg tablet 2.5 - 5 mg (0.5 - 1 x 5 mg) PO Q6H 03/26/24 Unknown Rx PRN pain 5 days #20 tabs citalopram 10 mg tablet 20 mg PO QHS depression 05/19/24 06/12/24 History acetaminophen 500 mg tablet 1,000 mg (2 x 500 mg) PO Q8 pain 06/13/24 06/13/24 04:50 Rx #0 tabs albuterol sulfate 2.5 mg/3 mL 2.5 mg (3 mL) inhalation Q2H PRN 06/13/24 Unknown Rx (0.083 %) solution for nebulization PRN SOB &/OR WHEEZING #0 mL lidocaine 5 % topical patch 1 patch topical DAILY back pain #0 06/13/24 Unknown Rx ea melatonin 3 mg tablet 3 mg PO QHS PRN PRN Insomnia #0 06/13/24 Unknown Rx tabs menthol 0.44 %-zinc oxide 20.6 % 1 applic topical TID cleft 06/13/24 06/13/24 04:50 Rx topical ointment (Calmoseptine) to anus #0 grams warfarin 5 mg tablet 5 mg PO DAILY BLOOD THINNER #1 TAB 06/13/24 03/11/24 Rx Allergy/AdvReac Type Severity Reaction Status Date / Time amiodarone AdvReac Intermediate It did not Verified 05/19/24 13:06 work, also bad dreams and neuropathy Family History Father , Age 57 Myocardial infarction CAD (coronary artery disease) ETOH abuse Mother , Age 47, of bone cancer Bone cancer Brother , age 45, of AIDS AIDS (acquired immune deficiency syndrome) Surgical History History of colonoscopy History of cholecystectomy History of left hip hemiarthroplasty H/O cervical spine surgery (01/2020) H/O coronary artery bypass surgery (11/26/98) History of thoracic spinal fusion (12/30/18) History of left heart catheterization (11/26/98) Social History household members: none Smoking Status: Former smoker alcohol intake: current details: once a week substance use type: does not use Physical Exam Const alert, oriented x3, no apparent distress and well nourished Nutritional Appearance: obese Back/Spine Back/Spine Narrative: Approximately 4 cm area of erythema and mild fluctuance in left upper back. There is a sinus medially that demonstrates spontaneous output of curd-like discharge. When the cyst is compressed there is further discharge. Patient confirms only mild tenderness with this palpation. Lab / Micro Data 06/21/24 05:42 06/21/24 05:42 Labs: Laboratory Results - last 24 hr 06/27/24 06:12: PT 16.9 H, INR 1.4 Charges/Coding Visit Charges Inpatient E&M: 41386 SNF Init L2
--- NOTE | 2024-06-27 19:17 | NURSING ---
Dr. Lynn consulted on pt today due to sebaceous cyst on upper back left shoulder, will likely start ABX treatment and plans to reassess tomorrow. See progress note.
[2024-06-27] MEDS: Doxazosin 4 MG Tablet 8 MG PO (22:46)
[2024-06-27] MEDS: Atorvastatin Calcium 80 MG Tablet PO (22:46)
[2024-06-27 22:47] VITALS: BP 150/79; PULSE 78
[2024-06-27] MEDS: Citalopram 20 MG Tablet PO (22:47)
[2024-06-27] MEDS: ENZALUTAMIDE 40 MG TABLET 160 MG PO (22:48)
[2024-06-28] MEDS: Menthol/Lanolin/Calamine/Znox 113 GM Tube 1 APPLIC TOPICAL ×3 (05:26→21:54)
[2024-06-28] MEDS: Acetaminophen 500 MG Tablet 1000 MG PO ×3 (05:28→21:56)
[2024-06-28 05:55] LABS: Absolute Lymphocyte Count 1.18 X10^3/uL (0.83-4.51); Absolute Neutrophil Count 3.2 X10^3/uL (2.0-7.7); Basophil# 0.03 X10^3/uL; Basophil% 0.6 % (0-1); Eosinophil# 0.27 X10^3/uL; Eosinophils% 5.3 % (0-5); Hematocrit 33.2 % (40-54); Hemoglobin 10.6 g/dL (13.0-16.5); Lymphocyte # 1.18 X10^3/ul (0.83-4.51); Mean Corp Hgb Conc 31.9 g/dL (32-36); Mean Corpuscular Hgb 29.4 pg (27.0-32.0); Monocyte# 0.47 X10^3/uL; Monocyte% 9.2 % (0-10); NRBC Flagged by Analyzer 0 % (0-5); Neutrophil # 3.15 X10^3/uL (2.7-7.7); Neutrophil % 61.5 % (47-70); Platelet Count 166 K/mm3 (150-450); RBC Distribution Width CV 13.9 % (11.6-14.6); Red Blood Count 3.61 M/mm3 (4.6-6.2); White Blood Count 5.1 K/mm3 (4.4-11.0)
[2024-06-28 06:48] LABS: Anion Gap 3 (5-15); BUN 18 mg/dL (7-18); BUN/Creat Ratio 31.8 RATIO (10-20); Calcium,Total 8.8 mg/dL (8.5-10.1); Chloride 108 mmol/L (98-107); Creatinine, Serum 0.57 mg/dL (0.70-1.30); EST Glomerular Filtration Rate 149 mL/min (>60); Est Glom Filt Rate - Afr Amer 180 mL/min (>60); Estimated Creatinine Clearance 105.14 ml/min; Glucose 90 mg/dL (74-106); Potassium 4.1 mmol/L (3.5-5.1); Sodium Level 141 mmol/L (136-145)
[2024-06-28] MEDS: Arthritis Pain Compound 60 CLICK TUBE TOPICAL ×2 (09:07→21:57)
[2024-06-28] MEDS: Fluticasone 0.05% 1 SPRAY NASAL.SRY 2 SPRAY NASAL (09:07)
[2024-06-28] MEDS: Lidocaine 5% Patch 1 PATCH TOPICAL (09:08)
[2024-06-28] MEDS: Furosemide 20 MG Tablet PO (09:08)
[2024-06-28] MEDS: Loratadine 10 MG Tablet PO (09:08)
[2024-06-28] MEDS: Doxazosin 4 MG Tablet PO (09:08)
[2024-06-28] MEDS: Cholecalciferol (VIT D3) 25 MCG TABLET (1,000 UNITS) PO (09:08)
[2024-06-28 09:09] VITALS: BP 141/71; PULSE 89
[2024-06-28] MEDS: Potassium Chloride Oral Tablet 20 MEQ PO (09:09)
[2024-06-28] MEDS: Nystatin Powder 15gm Bottle 1 APPLIC TOPICAL ×2 (09:09→21:55)
[2024-06-28] MEDS: Metoprolol Tartrate 50 MG Tablet PO ×2 (09:09→21:56)
[2024-06-28] MEDS: Petrolatum 33% Tube 1 APPLIC TOPICAL ×2 (09:14→21:54)
[2024-06-28 09:22] VITALS: BP 141/71; PULSE 89; RESP 17; TEMP 36.6; O2SAT 96
[2024-06-28 10:43] VITALS: BMI 35.9
--- NOTE | 2024-06-28 13:15 | CASEMGMT ---
Addendum entered by Ritika Petty 06/29/24 15:22: [facility] can accept but do not have aide staffing. RAHEEM adjusted order. Addendum entered by Ritika Petty 06/29/24 14:19: SW followed up with pt on appeal status and HHC preference. Pt stated he filed the appeal about 1000 this date. Case #[id number] Pt prefers [facility], [facility], [facility]. SW sent referral to [facility] via [employer]. As of 1410, no fax from [employer]. SW left VM with [employer] and phoned again, being placed on hold for several minutes, but was able to speak with a rep to provide an accurate fax number for the medical records request. Fax received and sent secure email to HIM to process. CHIDI López Original Note: Social Work SW met with pt to notify him of insurance issuing LCD 06/30, DC 07/01. Explained appeal rights and confirmed DC plans. Pt disagrees with termination of services and is requesting to appeal insurance decision for no more than a week to continue working on leg strength and steps, specifically. SW advised to phone appeal as soon as possible and to notify this worker of case number once filed to process medical records request. Pt expressed understanding. RAHEEM still discussed DC plans. Pt agreeable to returning home, while looking for other apartments better suited for pt's needs. RAHEEM offered skilled HHC. Pt agreeable and requesting [place] [facility], whom he used prior. No DME needs. RAHEEM sent referral to [facility] via [employer] for PT/OT/SN/RAYA/SW. [facility] is unable to accept. RAHEEM updated pt and provided list of skilled HHC agencies with quality and resource data via [employer] Guide to choose other preferences. Pt to review and notify this worker. Plan: PENDING APPEAL; DC home alone 07/01, HHC PT/OT/SN/SW CHIDI López
[2024-06-28] MEDS: Cephalexin 500 MG Capsule PO ×2 (13:25→17:40)
--- NOTE | 2024-06-28 21:05 | PCM.DC.SUM ---
Providers Date of Admission: 06/13/24 Primary Care Physician: Dr. James Pisano MD Consultations 06/13/24 20:27 Consult: Onc/Wound/shaper machine hand Routine Comment: Comments:: RLE open areas 06/27/24 07:46 Consult: General Surgery Routine Consulting Provider: Devon Lynn Reason for Consult: sebaceous cyst middle of back, I+D. EMERGENT Consult: No MD Notified: Yes Date Notified: 06/27/24 Time Notified: 09:08 Method of Notification: Text Reason For Visit: FAILURE TO THRIVE, CHRONIC BACK PAIN Diagnosis Discharge Diagnosis (1) Sebaceous cyst: Status: Acute Code(s): L72.3 - Sebaceous cyst Plan 78 year old male with below past medical history hospitalized for failure to thrive, admitted to TCU with debility, here for rehabilitation, strengthening, prior to discharge home alone. Debility - PT/OT. Pain - Tylenol 1000mg q8, Oxycodone 2.5-5mg q6 prn, Lidoderm 1 patch td daily. Bowel - Senna/colace 2 tablets bid prn. Adult immunization - Administer pneumonia vaccine, covid vaccine, flu vaccine as appropriate. DVT prophylaxis - on warfarin. Low back pain - Resident had lumbar surgery 03/24/2024, if no improvement, MRI LS spine. COPD - Albuterol 2 puffs q2h prn. Hyperlipidemia - Atorvastatin 80mg qhs. Vitamin D deficiency - D3 25mcg daily. 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 BPH - Doxazosin 4mg daily, 8mg qhs. Prostate cancer - Xtandi 160mg po qpm. Allergic rhinitis - Flonase 2 sprays nasal daily, Loratadine 10mg daily. Edema - Furosemide 20mg daily. Insomnia - Melatonin 3mg qhs prn. Skin irritation - Calmoseptine topical tid. Atrial fibrillation - Metoprolol 50mg bid, Warfarin 5mg daily, follow INR. Nausea - Zofran odt 4mg q8 prn. Hypokalemia - KCL 20meq daily. Medications at Discharge Home Medications potassium chloride 20 mEq tablet,extended release 20 meq PO DAILY supplement 12/03/18 cetirizine 10 mg capsule 10 mg PO DAILY Allergy 12/27/18 metoprolol tartrate 50 mg tablet 50 mg PO BID bp 03/15/19 cholecalciferol (vitamin D3) 1,250 mcg (50,000 unit) capsule 1,000 unit PO DAILY supplement 10/29/20 terazosin 10 mg capsule 10 mg PO QPM BPH 12/01/22 enzalutamide 40 mg tablet (Xtandi) 160 mg (4 x 40 mg) PO QPM Prostate #0 tabs 12/16/22 fluticasone propionate 50 mcg/actuation nasal spray,suspension 2 spray NASAL DAILY Allergies #0 grams 12/16/22 atorvastatin 80 mg tablet 80 mg PO DAILY Cholesterol 03/12/24 furosemide 20 mg tablet 20 mg PO DAILY Edema 03/12/24 doxazosin 4 mg tablet (Cardura) 4 mg PO DAILY heart 03/21/24 citalopram 10 mg tablet 20 mg PO QHS depression 05/19/24 warfarin 5 mg tablet 5 mg PO DAILY BLOOD THINNER #1 TAB 06/13/24 acetaminophen 500 mg tablet 1,000 mg (2 x 500 mg) PO Q8 #0 tabs 06/28/24 cephalexin 500 mg capsule 500 mg PO Q6 7 days #28 caps 06/28/24 lidocaine 5 % topical patch 1 patch topical DAILY 30 days #30 ea 06/28/24 Hospital Course Operations None Procedures None Summary of Care Provided Minutes Spent on Discharge: 35 Hospital Course: 78 year old male with below past medical history hospitalized for failure to thrive, admitted to TCU with debility, here for rehabilitation, strengthening, prior to discharge home alone. Pending appeal, discharge home alone 07/01/2024, [facility] PT/OT/SN/SW. Physical Exam Const alert General Appearance: cooperative HEENT normocephalic Eyes PERRL and EOMs intact bilaterally Neck supple, no JVD and no carotid bruits Resp normal respiratory effort, normal air movement and clear to auscultation bilaterally Cardio regular rate and regular rhythm GI normal to inspection, nondistended, normoactive bowel sounds, non-tender and non-distended Extremity normal capillary refill General Extremity: Negative for edema Skin no rashes or lesions noted General Skin Exam: no breakdown Psych affect normal Appearance: appropriate Weight / BMI Weight Weight: 120.111 kg Body Mass Index (BMI) 35.9 ABG / Lab / Microbiology Data 06/28/24 05:15 06/28/24 05:18 Laboratory: Laboratory Results - last 24 hr 08/20/24 05:15: WBC 5.1, RBC 3.61 L, Hgb 10.6 L, Hct 33.2 L, MCV 92.0, MCH 29.4, MCHC 31.9 L, RDW Std Deviation 47.0 H, RDW Coeff of Dick 13.9, Plt Count 166, MPV 9.0, Immature Gran % (Auto) 0.400, Neut % (Auto) 61.5, Lymph % (Auto) 23.0, [place] % (Auto) 9.2, Eos % (Auto) 5.3 H, Baso % (Auto) 0.6, Absolute Neuts (auto) 3.2, Absolute Lymphs (auto) 1.18, Nucleated RBC % 0 06/28/24 05:18: Sodium 141, Potassium 4.1, Chloride 108 H, Carbon Dioxide 30.0, Anion Gap 3 L, BUN 18, Creatinine 0.57 L, Estim Creat Clear Calc 105.14, Est GFR (MDRD) Af Amer 180, Est GFR (MDRD) Non-Af 149, BUN/Creatinine Ratio 31.8 H, Glucose 90, Calcium 8.8 Microbiology: Microbiology 06/23/24 05:48 Nasal Secretion SARS-CoV-2 Antigen (Rapid) - Final 06/17/24 10:10 Stool Clostridioides difficile (PCR) - Final 06/16/24 Unknown Nasal Secretion SARS-CoV-2 Antigen (Rapid) - Final 06/13/24 23:18 Nasal Secretion SARS-CoV-2 Antigen (Rapid) - Final D/C Instructions Discharge Diet: No restrictions Discharge Activity: Return to Normal Activity, May Shower and Use Walker Weight Bearing Status: Weight bearing as tolerated Call your doctor if you observe: Fever of 101 or Higher, Inability to urinate, Inability to have a bowel movement, Shortness of breath, Dizziness, Fainting spells, Swelling in the ankles, Chest pain and Uncontrolled pain Additional Instructions: Pending appeal, discharge home alone 07/01/2024, [facility] PT/OT/SN/SW. Please Follow Up With: Devon Lynn MD When: 1 week. Meaningful Use Info Meaningful Use Meaningful Use Diagnoses (Choose all that apply): None applicable Ischemic Stroke Statin Dosing Therapy Reference: STATIN DOSE THERAPY REFERENCE: * Patients > 75 years receive moderate or high dose statin therapy. * Patients 75 years or YOUNGER should receive HIGH intensity statin dose unless contraindicated. You will be required to document reason for non-treatment if statin daily dose does not meet guidelines. HIGH DOSE STATIN THERAPY DAILY Atorvastatin > than or = to 40 mg Rosuvastatin > than or = to 20 mg Amlodipine + Atorvastatin > than or = to 2.5/40 mg Ezetimibe + Simvastatin 10/80 mg Simvastatin 80mg Discharge Plan Admission Admit Date/Time: 06/13/24 19:15 Primary Reason for Your Visit: Debility Attending Provider: James Pisano Chi Primary Care Provider: James Pisano Chi Consulting Providers: Devon Lynn Instructions Additional Instructions / Restrictions: Pending appeal, discharge home alone 07/01/2024, [facility] PT/OT/SN/SW. Discharge Orders/Prescriptions Prescriptions: New acetaminophen 500 mg Tablet 1,000 mg PO Q8 Qty: 0 0RF cephalexin 500 mg Capsule 500 mg PO Q6 7 Days Qty: 28 0RF lidocaine 5 % Adhesive Patch,Medicated 1 patch topical DAILY 30 Days Qty: 30 0RF Protocol: *Topical Application Instructions APPLICATION INSTRUCTIONS: lower back Continued potassium chloride 20 mEq tablet extended release 20 meq PO DAILY cholecalciferol (vitamin D3) 1,250 mcg (50,000 unit) capsule 1,000 unit PO DAILY metoprolol tartrate 50 mg tablet 50 mg PO BID doxazosin [Cardura] 4 mg tablet 4 mg PO DAILY cetirizine 10 MG capsule 10 mg PO DAILY terazosin 10 mg capsule 10 mg PO QPM citalopram 10 mg tablet 20 mg PO QHS fluticasone propionate 50 mcg/actuation [place],Suspension 2 spray NASAL DAILY Qty: 0 0RF Xtandi 40 mg Tablet 160 mg PO QPM Qty: 0 0RF atorvastatin 80 mg tablet 80 mg PO DAILY furosemide 20 mg tablet 20 mg PO DAILY warfarin 5 mg tablet 5 mg PO DAILY Qty: 1 0RF Protocol: Dose Management Condition: Thursday Dose/Route: 7.5 mg Instruction: 1.5 x 5 mg tablets Condition: Thursday Dose/Route: 7.5 mg Instruction: 1.5 x 5 mg tablets Condition: Thursday Dose/Route: 7.5 mg Instruction: 1.5 x 5 mg tablets Condition: Thursday Dose/Route: 7.5 mg Instruction: 1.5 x 5 mg tablets Condition: Dose/Route: 7.5 mg Instruction: 1.5 x 5 mg tablets Condition: Thursday Dose/Route: 7.5 mg Instruction: 1.5 x 5 mg tablets Condition: Thursday Dose/Route: 7.5 mg Instruction: 1.5 x 5 mg tablets Protocol Text: Adjustment Start Date: 06/02/24 INR Value: 2.3 INR Date: 06/02/24 Recheck Date: 06/30/24 Discontinued lidocaine 5 % Adhesive Patch,Medicated 1 patch topical DAILY 30 Days Qty: 30 0RF Protocol: *Topical Application Instructions APPLICATION INSTRUCTIONS: chronic back pain sennosides-docusate sodium [Senna with Docusate Sodium] 8.6-50 mg tablet 2 tab-cap PO BID PRN (Reason: constipation) Qty: 30 0RF ondansetron 4 mg tablet,disintegrating 4 mg PO Q8H PRN (Reason: nausea and vomiting) Qty: 10 0RF oxycodone 5 mg Tablet 2.5 - 5 mg PO Q6H PRN (Reason: pain) 5 Days Qty: 20 0RF acetaminophen 500 mg Tablet 1,000 mg PO Q8 Qty: 0 0RF melatonin 3 mg Tablet 3 mg PO QHS PRN PRN (Reason: Insomnia) Qty: 0 0RF lidocaine 5 % Adhesive Patch,Medicated 1 patch topical DAILY Qty: 0 0RF Protocol: *Topical Application Instructions APPLICATION INSTRUCTIONS: 12 hours on 12 hours off menthol-zinc oxide [Calmoseptine] 0.44-20.6 % Ointment 1 applic topical TID Qty: 0 0RF Protocol: *Topical Application Instructions APPLICATION INSTRUCTIONS: cleft- to anus albuterol sulfate 2.5 mg /3 mL (0.083 %) Solution For Nebulization 2.5 mg inhalation Q2H PRN PRN (Reason: SOB &/OR WHEEZING) Qty: 0 0RF Referrals / Follow Up: Devon Lynn MD [Med Staff - Active Staff] - In 1 Week James Pisano Chi, MD [Primary Care Provider] - Within 1 Week Disposition Disposition (needs filled in before D/C Order can be placed): Home Health Service
[2024-06-28 21:56] VITALS: BP 143/80; PULSE 77
[2024-06-28] MEDS: Atorvastatin Calcium 80 MG Tablet PO (21:56)
[2024-06-28] MEDS: Doxazosin 4 MG Tablet 8 MG PO (21:57)
[2024-06-28] MEDS: ENZALUTAMIDE 40 MG TABLET 160 MG PO (21:58)
[2024-06-28] MEDS: Citalopram 20 MG Tablet PO (21:58)
[2024-06-29] MEDS: Cephalexin 500 MG Capsule PO ×4 (00:16→16:49)
[2024-06-29] MEDS: Acetaminophen 500 MG Tablet 1000 MG PO ×3 (06:00→21:54)
[2024-06-29] MEDS: Menthol/Lanolin/Calamine/Znox 113 GM Tube 1 APPLIC TOPICAL ×3 (06:01→21:56)
[2024-06-29] MEDS: Fluticasone 0.05% 1 SPRAY NASAL.SRY 2 SPRAY NASAL (08:27)
[2024-06-29] MEDS: Arthritis Pain Compound 60 CLICK TUBE TOPICAL ×2 (08:27→21:54)
[2024-06-29] MEDS: Lidocaine 5% Patch 1 PATCH TOPICAL (08:33)
[2024-06-29 08:34] VITALS: BP 141/70; PULSE 74
[2024-06-29] MEDS: Potassium Chloride Oral Tablet 20 MEQ PO (08:34)
[2024-06-29] MEDS: Metoprolol Tartrate 50 MG Tablet PO ×2 (08:34→22:01)
[2024-06-29] MEDS: Furosemide 20 MG Tablet PO (08:35)
[2024-06-29] MEDS: Loratadine 10 MG Tablet PO (08:35)
[2024-06-29] MEDS: Cholecalciferol (VIT D3) 25 MCG TABLET (1,000 UNITS) PO (08:35)
[2024-06-29] MEDS: Doxazosin 4 MG Tablet PO (08:35)
[2024-06-29] MEDS: Nystatin Powder 15gm Bottle 1 APPLIC TOPICAL ×2 (08:36→21:57)
[2024-06-29] MEDS: Petrolatum 33% Tube 1 APPLIC TOPICAL ×2 (08:36→21:57)
[2024-06-29 08:38] VITALS: BP 141/70; PULSE 74; RESP 16; TEMP 36.8; O2SAT 94
--- NOTE | 2024-06-29 15:25 | WOUNDNOTE ---
Nursing had changed the left lower leg wound dressings today.
[2024-06-29 21:45] VITALS: BP 131/76; PULSE 93
[2024-06-29] MEDS: ENZALUTAMIDE 40 MG TABLET 160 MG PO (21:53)
[2024-06-29] MEDS: Atorvastatin Calcium 80 MG Tablet PO (21:54)
[2024-06-29] MEDS: Doxazosin 4 MG Tablet 8 MG PO (21:55)
[2024-06-29] MEDS: Citalopram 20 MG Tablet PO (21:56)
[2024-06-29 22:01] VITALS: BP 131/76; PULSE 93
[2024-06-30] VITALS: BP 138/70; PULSE 93
[2024-06-30] MEDS: Cephalexin 500 MG Capsule PO ×4 (01:15→17:23)
[2024-06-30] MEDS: Acetaminophen 500 MG Tablet 1000 MG PO ×3 (05:55→20:32)
[2024-06-30] MEDS: Menthol/Lanolin/Calamine/Znox 113 GM Tube 1 APPLIC TOPICAL ×3 (05:56→20:35)
[2024-06-30 06:08] LABS: International Normalized Ratio 1.5; Prothrombin Time (Protime)PT. 17.9 SECONDS (11.7-14.9)
[2024-06-30] MEDS: Doxazosin 4 MG Tablet PO (08:23)
[2024-06-30] MEDS: Potassium Chloride Oral Tablet 20 MEQ PO (08:23)
[2024-06-30] MEDS: Arthritis Pain Compound 60 CLICK TUBE TOPICAL ×2 (08:23→20:33)
[2024-06-30] MEDS: Fluticasone 0.05% 1 SPRAY NASAL.SRY 2 SPRAY NASAL (08:24)
[2024-06-30] MEDS: Loratadine 10 MG Tablet PO (08:24)
[2024-06-30] MEDS: Furosemide 20 MG Tablet PO (08:25)
[2024-06-30] MEDS: Lidocaine 5% Patch 1 PATCH TOPICAL (08:25)
[2024-06-30 08:26] VITALS: BP 137/72; PULSE 75
[2024-06-30] MEDS: Metoprolol Tartrate 50 MG Tablet PO ×2 (08:26→20:39)
[2024-06-30] MEDS: Cholecalciferol (VIT D3) 25 MCG TABLET (1,000 UNITS) PO (08:26)
[2024-06-30] MEDS: Petrolatum 33% Tube 1 APPLIC TOPICAL (08:27)
[2024-06-30] MEDS: Nystatin Powder 15gm Bottle 1 APPLIC TOPICAL (08:27)
[2024-06-30 08:39] VITALS: BP 137/72; PULSE 75
--- NOTE | 2024-06-30 13:22 | NURSING ---
Updated patient that a staff member and other patient tested positive for covid. He did not want family updated.
--- NOTE | 2024-06-30 14:56 | CASEMGMT ---
Social Work Received fax notification from [employer] that pt won his appeal. DC cancelled. [facility] Will continue to follow. Ritika Petty, FINANCIAL OFFICER SUPERVISOR COIL WINDING
[2024-06-30 15:09] VITALS: BP 110/65; PULSE 70; RESP 22; TEMP 36.1; O2SAT 95
--- NOTE | 2024-06-30 15:20 | WOUNDNOTE ---
wound photo: left lower leg
--- NOTE | 2024-06-30 15:26 | NURSING ---
ANGELESRN/WOUND NURSE CHANGED PT DRESSING TO LT LEG.
[2024-06-30 17:20] VITALS: PULSE 59; RESP 18; O2SAT 94
[2024-06-30] MEDS: Atorvastatin Calcium 80 MG Tablet PO (20:31)
[2024-06-30] MEDS: Citalopram 20 MG Tablet PO (20:32)
[2024-06-30] MEDS: Doxazosin 4 MG Tablet 8 MG PO (20:33)
[2024-06-30] MEDS: ENZALUTAMIDE 40 MG TABLET 160 MG PO (20:35)
[2024-06-30 20:39] VITALS: BP 135/72; PULSE 75
[2024-07-01] MEDS: Cephalexin 500 MG Capsule PO ×4 (00:35→17:32)
[2024-07-01] MEDS: Menthol/Lanolin/Calamine/Znox 113 GM Tube 1 APPLIC TOPICAL ×2 (05:53→22:16)
[2024-07-01] MEDS: Acetaminophen 500 MG Tablet 1000 MG PO ×3 (05:54→22:16)
[2024-07-01] MEDS: Potassium Chloride Oral Tablet 20 MEQ PO (08:55)
[2024-07-01] MEDS: Lidocaine 5% Patch 1 PATCH TOPICAL (08:55)
[2024-07-01] MEDS: Arthritis Pain Compound 60 CLICK TUBE TOPICAL ×2 (08:56→22:14)
[2024-07-01] MEDS: Loratadine 10 MG Tablet PO (08:56)
[2024-07-01] MEDS: Cholecalciferol (VIT D3) 25 MCG TABLET (1,000 UNITS) PO (08:56)
[2024-07-01] MEDS: Doxazosin 4 MG Tablet PO (08:57)
[2024-07-01] MEDS: Furosemide 20 MG Tablet PO (08:57)
[2024-07-01] MEDS: Fluticasone 0.05% 1 SPRAY NASAL.SRY 2 SPRAY NASAL (08:58)
[2024-07-01] MEDS: Petrolatum 33% Tube 1 APPLIC TOPICAL ×2 (08:58→22:17)
[2024-07-01 09:05] VITALS: BP 122/68; PULSE 85
[2024-07-01] MEDS: Metoprolol Tartrate 50 MG Tablet PO ×2 (09:05→22:16)
[2024-07-01 10:00] VITALS: PULSE 67; RESP 16
--- NOTE | 2024-07-01 13:47 | CASEMGMT ---
Social Work Insurance issued LCD 07/03, DC 07/04. SW notified pt and pt declined to appeal again, and feels ready to DC home. Pt will have friend transport him home and help him with the entry steps. RAHEEM updated [facility] of DC date. Plan: DC home alone 07/04, [facility] PT/OT/SN/RAHEEM Petty, DIRECTOR MATERNAL CHILD REEL WINDER
[2024-07-01 16:00] VITALS: BP 129/68; PULSE 69; RESP 16; TEMP 36.2; O2SAT 96
[2024-07-01] MEDS: ENZALUTAMIDE 40 MG TABLET 160 MG PO (22:14)
[2024-07-01] MEDS: Citalopram 20 MG Tablet PO (22:15)
[2024-07-01] MEDS: Atorvastatin Calcium 80 MG Tablet PO (22:15)
[2024-07-01] MEDS: Doxazosin 4 MG Tablet 8 MG PO (22:15)
[2024-07-01 22:16] VITALS: BP 141/75; PULSE 77
[2024-07-01] MEDS: Nystatin Powder 15gm Bottle 1 APPLIC TOPICAL (22:16)
[2024-07-02] MEDS: Cephalexin 500 MG Capsule PO ×4 (00:41→17:46)
[2024-07-02] MEDS: Menthol/Lanolin/Calamine/Znox 113 GM Tube 1 APPLIC TOPICAL ×2 (05:58→22:49)
[2024-07-02] MEDS: Acetaminophen 500 MG Tablet 1000 MG PO ×3 (05:58→22:46)
[2024-07-02 10:53] VITALS: BP 122/64; PULSE 85
[2024-07-02] MEDS: Furosemide 20 MG Tablet PO (10:53)
[2024-07-02] MEDS: Potassium Chloride Oral Tablet 20 MEQ PO (10:53)
[2024-07-02] MEDS: Metoprolol Tartrate 50 MG Tablet PO ×2 (10:53→22:51)
[2024-07-02] MEDS: Doxazosin 4 MG Tablet PO (10:53)
[2024-07-02] MEDS: Fluticasone 0.05% 1 SPRAY NASAL.SRY 2 SPRAY NASAL (10:54)
[2024-07-02] MEDS: Loratadine 10 MG Tablet PO (10:54)
[2024-07-02] MEDS: Arthritis Pain Compound 60 CLICK TUBE TOPICAL ×2 (10:54→22:43)
[2024-07-02] MEDS: Petrolatum 33% Tube 1 APPLIC TOPICAL ×2 (10:54→22:50)
[2024-07-02] MEDS: Lidocaine 5% Patch 1 PATCH TOPICAL (10:55)
[2024-07-02] MEDS: Cholecalciferol (VIT D3) 25 MCG TABLET (1,000 UNITS) PO (10:55)
[2024-07-02 15:45] VITALS: BP 128/75; PULSE 78; RESP 18; TEMP 35.9; O2SAT 95
[2024-07-02] MEDS: ENZALUTAMIDE 40 MG TABLET 160 MG PO (22:42)
[2024-07-02] MEDS: Doxazosin 4 MG Tablet 8 MG PO (22:44)
[2024-07-02] MEDS: Atorvastatin Calcium 80 MG Tablet PO (22:45)
[2024-07-02] MEDS: Citalopram 20 MG Tablet PO (22:45)
[2024-07-02] MEDS: Nystatin Powder 15gm Bottle 1 APPLIC TOPICAL (22:49)
[2024-07-02 22:51] VITALS: BP 133/76; PULSE 71
[2024-07-03] MEDS: Cephalexin 500 MG Capsule PO ×5 (00:52→23:17)
--- NOTE | 2024-07-03 01:59 | NURSING ---
Removed old dressing to lle, cleansed area with ns, applied adaptic, dry dressing, kerlix and anna wrap. Pt tolerated well. Dressing to back removed, scant serosang drainage on dressing. Cleansed with ns, applied dsd. Pt tolerated well.
[2024-07-03] MEDS: Menthol/Lanolin/Calamine/Znox 113 GM Tube 1 APPLIC TOPICAL ×3 (05:27→22:03)
[2024-07-03] MEDS: Acetaminophen 500 MG Tablet 1000 MG PO ×3 (05:28→22:01)
[2024-07-03] MEDS: Potassium Chloride Oral Tablet 20 MEQ PO (07:55)
[2024-07-03] MEDS: Lidocaine 5% Patch 1 PATCH TOPICAL (10:56)
[2024-07-03] MEDS: Fluticasone 0.05% 1 SPRAY NASAL.SRY 2 SPRAY NASAL (10:57)
[2024-07-03] MEDS: Arthritis Pain Compound 60 CLICK TUBE TOPICAL ×2 (10:58→22:03)
[2024-07-03] MEDS: Doxazosin 4 MG Tablet PO (10:58)
[2024-07-03] MEDS: Petrolatum 33% Tube 1 APPLIC TOPICAL (10:59)
[2024-07-03] MEDS: Loratadine 10 MG Tablet PO (10:59)
[2024-07-03 11:00] VITALS: PULSE 75
[2024-07-03] MEDS: Furosemide 20 MG Tablet PO (11:00)
[2024-07-03] MEDS: Metoprolol Tartrate 50 MG Tablet PO ×2 (11:00→22:02)
[2024-07-03] MEDS: Cholecalciferol (VIT D3) 25 MCG TABLET (1,000 UNITS) PO (11:00)
[2024-07-03] MEDS: Nystatin Powder 15gm Bottle 1 APPLIC TOPICAL ×2 (11:01→22:04)
[2024-07-03 13:51] VITALS: BP 139/78; PULSE 72; RESP 18; TEMP 35.9; O2SAT 94
[2024-07-03 21:59] VITALS: BP 141/84; PULSE 76
[2024-07-03] MEDS: Citalopram 20 MG Tablet PO (22:01)
[2024-07-03] MEDS: Atorvastatin Calcium 80 MG Tablet PO (22:01)
[2024-07-03 22:02] VITALS: PULSE 76
[2024-07-03] MEDS: Doxazosin 4 MG Tablet 8 MG PO (22:02)
[2024-07-03] MEDS: ENZALUTAMIDE 40 MG TABLET 160 MG PO (22:04)
[2024-07-04] MEDS: Cephalexin 500 MG Capsule PO ×2 (05:36→11:21)
[2024-07-04] MEDS: Menthol/Lanolin/Calamine/Znox 113 GM Tube 1 APPLIC TOPICAL (05:37)
[2024-07-04] MEDS: Acetaminophen 500 MG Tablet 1000 MG PO ×2 (05:37→13:36)
[2024-07-04 05:55] LABS: International Normalized Ratio 1.3; Prothrombin Time (Protime)PT. 16.4 SECONDS (11.7-14.9)
[2024-07-04] MEDS: Lidocaine 5% Patch 1 PATCH TOPICAL (08:15)
[2024-07-04] MEDS: Arthritis Pain Compound 60 CLICK TUBE TOPICAL (08:15)
[2024-07-04] MEDS: Doxazosin 4 MG Tablet PO (08:18)
[2024-07-04] MEDS: Potassium Chloride Oral Tablet 20 MEQ PO (08:18)
[2024-07-04] MEDS: Loratadine 10 MG Tablet PO (08:19)
[2024-07-04] MEDS: Fluticasone 0.05% 1 SPRAY NASAL.SRY 2 SPRAY NASAL (08:19)
[2024-07-04] MEDS: Petrolatum 33% Tube 1 APPLIC TOPICAL (08:20)
[2024-07-04 08:21] VITALS: BP 114/65; PULSE 74
[2024-07-04] MEDS: Furosemide 20 MG Tablet PO (08:21)
[2024-07-04] MEDS: Metoprolol Tartrate 50 MG Tablet PO (08:21)
[2024-07-04] MEDS: Nystatin Powder 15gm Bottle 1 APPLIC TOPICAL (08:22)
[2024-07-04] MEDS: Cholecalciferol (VIT D3) 25 MCG TABLET (1,000 UNITS) PO (08:22)
[2024-07-04 08:27] VITALS: BP 114/65; PULSE 74
--- NOTE | 2024-07-04 11:48 | CASEMGMT ---
Social Work SW conducted BIMS () and PHQ-9 (04/04) for MDS assessment. Ritika Petty MSW RESIDENTIAL PROGRAM COORDINATOR
--- NOTE | 2024-07-04 12:53 | NURSING ---
THIS NURSE GAVE PT HIS HOME MED XTANDI BACK TO PT TO TAKE HOME TODAY AT D/C.
[2024-07-04 15:45] VITALS: BP 125/75; PULSE 71; RESP 16; TEMP 36.1; O2SAT 98
== END 2024-07-04 15:35 | disposition home health service (06) | DRG 552 ==
PROVIDERS: Admitting Provider Family Medicine Geriatric Medicine; PCP Family Medicine Geriatric Medicine; Visit Provider Family Medicine Geriatric Medicine
DX: M54.50 Low back pain, unspecified (principal); I48.11 Longstanding persistent atrial fibrillation; C61 Malignant neoplasm of prostate; J44.9 Chronic obstructive pulmonary disease, unspecified; F32.A Depression, unspecified; I10 Essential (primary) hypertension; E78.00 Pure hypercholesterolemia, unspecified; I25.10 Atherosclerotic heart disease of native coronary artery without angina pectoris; J30.9 Allergic rhinitis, unspecified; E87.6 Hypokalemia; E55.9 Vitamin D deficiency, unspecified; L72.3 Sebaceous cyst; R62.7 Adult failure to thrive; N40.0 Benign prostatic hyperplasia without lower urinary tract symptoms; Z79.01 Long term (current) use of anticoagulants; Z87.891 Personal history of nicotine dependence; Z79.899 Other long term (current) drug therapy; G89.29 Other chronic pain; G47.00 Insomnia, unspecified
CPT/HCPCS: 36415; 73562; 80048; 85025; 85610; 87493; 87811; 92523; 97110; 97116; 97162; 97166; 97530; 97535; 97802; A4216

== ENCOUNTER → 2024-06-21 | Outpatient (CLI) | payer MEDICARE, SELFPAY ==
--- NOTE | 2024-06-21 08:53 | VDLE_ITS ---
Reason For Study: LLE PAIN Procedure LEFT This is a venous duplex using B-mode, color GSV is normal. flow and spectral Doppler. CFV is compressible, spontaneous, phasic, Exam performed portable in patient room. competent, and demonstrates normal A preliminary report was called and/or faxed augmentation. to [facility] TCU. FV is compressible, spontaneous, phasic, competent and demonstrates normal augmentation. POP V is compressible, spontaneous, phasic, competent and demonstrates normal augmentation. T/P Trunk is compressible. Small segment of left calf (PTV & PERV) NOT evaluated due to bandges. PROX & DISTAL PTV/PERV are compressible. VL/Venous Duplex US, Unilateral Interpretation Summary Deep veins of the left lower extremity are patent and compressible segmentally. There is no evidence of left lower extremity deep vein thrombosis. The left great saphenous vein la nena ears patent and compressible segmentally. Limited study below the knee due to dressings. Ordering Physician: James Pisano Chi Referring Physician: James Pisano Chi Performed By: Lee Ann Jones, GEORGETTECS, RVT
== END | disposition home or self-care (01) ==
PROVIDERS: PCP Family Medicine Geriatric Medicine; Referring Provider Family Medicine Geriatric Medicine; Visit Provider Family Medicine Geriatric Medicine
DX: M79.662 Pain in left lower leg (principal)
CPT/HCPCS: 93971

== ENCOUNTER 2024-07-12 12:03 | Outpatient (RCR) | payer MEDICARE, SELFPAY ==
[2024-07-12 12:50] LABS: International Normalized Ratio 1.4; Prothrombin Time (Protime)PT. 16.8 SECONDS (11.7-14.9)
== END 2024-08-08 23:59 ==
LOC: POLAB3 12:03
PROVIDERS: PCP Family Medicine Geriatric Medicine; Visit Provider Internal Medicine Cardiovascular Disease
DX: I48.91 Unspecified atrial fibrillation (principal); Z79.01 Long term (current) use of anticoagulants
CPT/HCPCS: 36415; 85610

== ENCOUNTER → 2024-07-19 | Outpatient (CLI) | payer MEDICARE, SELFPAY ==
[2024-07-19 11:33] LABS: Prothrombin Time (Protime)PT. 22.9 SECONDS (11.7-14.9)
== END | disposition home or self-care (01) ==
LOC: LAB 09:40
PROVIDERS: PCP Family Medicine Geriatric Medicine; Visit Provider Internal Medicine Cardiovascular Disease
DX: I48.91 Unspecified atrial fibrillation (principal); Z79.01 Long term (current) use of anticoagulants
CPT/HCPCS: 85610

== ENCOUNTER → 2024-08-02 | Outpatient (CLI) | payer MEDICARE, SELFPAY ==
[2024-08-02 11:02] LABS: International Normalized Ratio 2.2; Prothrombin Time (Protime)PT. 24.1 SECONDS (11.7-14.9)
== END | disposition home or self-care (01) ==
LOC: LAB 08:27
PROVIDERS: PCP Family Medicine Geriatric Medicine; Visit Provider Internal Medicine Cardiovascular Disease
DX: I48.91 Unspecified atrial fibrillation (principal); Z79.01 Long term (current) use of anticoagulants
CPT/HCPCS: 36415; 85610

== ENCOUNTER 2024-08-08 09:19 | Day surgery (SDC) | payer MEDICARE, SELFPAY ==
[2024-08-08] VITALS (8 sets, daily range): BP systolic 113–149; BP diastolic 76–92; PULSE 60–109; RESP 16–18; TEMP 36.1–37.1; O2SAT 90–100; BMI 35.8
[2024-08-08 09:32] LABS: INR Fingerstick 1.3; Prothrombin Time Fingerstick 13.9 SEC (11.7-14.9)
--- NOTE | 2024-08-08 09:48 | PRE.ANES_ITS ---
ASA Classification* ASA Classification ASA Classification: 3 Assessment & Plan Anesthesia* Anesthesia Assessment Anesthesia Assessment: Discussed sedation and/or anesthesia options, risks, benefits, and alternatives with patient/parents/legal guardian/POA. Questions invited. The patient/parents/legal guardian/POA seems to understand and agrees to proceed with anesthesia plan. Reviewed the physical assessment, medical history, allergy history and patient home medications list prior to surgery/procedure/anesthetic and documented any changes. Performed airway and anesthesia risk assessments. Anesthesia Type Anesthesia Type: MAC (GA bkup) Anesthesia Focused Assessment* Airway Assessment Mouth opens: >3 cm Mallampati Score: II Focused Labs Anesthesia Preop lab: CBC WBC 5.1 K/mm3 (4.4-11.0) 06/28/24 05:15 RBC 3.61 M/mm3 (4.6-6.2) L 06/28/24 05:15 Hgb 10.6 g/dL (13.0-16.5) L 06/28/24 05:15 Hct 33.2 % (40-54) L 06/28/24 05:15 Plt Count 166 K/mm3 (150-450) 06/28/24 05:15 CHEMISTRY Potassium 4.1 mmol/L (3.5-5.1) 06/28/24 05:18 Sodium 141 mmol/L (136-145) 06/28/24 05:18 Magnesium 1.9 mg/dL (1.6-2.6) 06/13/24 06:25 Phosphorus 2.9 mg/dL (2.5-4.9) 06/13/24 06:25 BUN 18 mg/dL (7-18) 06/28/24 05:18 Creatinine 0.57 mg/dL (0.70-1.30) L 06/28/24 05:18 Glucose 90 mg/dL (74-106) 06/28/24 05:18 POC Glucose 96 mg/dL (74-106) 03/24/24 06:09 TSH 3.01 uIU/mL (0.358-3.74) 04/21/24 15:19 COAG PT 24.1 SECONDS (11.7-14.9) H 08/02/24 10:00 INR 2.8 08/11/23 11:45 Pre-Assessment Diagnosis/Proposed Procedure Planned Operative Procedure(s): (L) Excision, Sebaceous Cyst on back Anesthesia History 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 When Was Last Pacemaker Check QUESTION #4 FULL TEXT: You/Your Family Experience fever (hyperthermia) with Anesthesia Last Oral Intake Last Oral intake: Last Oral Intake NPO since Meds taken in AM with sips of water? 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 Has anyone observed you stop breathing during sleep? STOP Results Positive 08/04/24 16:07 QUESTION #5 FULL TEXT : Do you snore loudly (louder than talking or can be heard through closed doors)? 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 Specify any problems Hx of Preganancy in last 3 N/A 08/04/24 16:07 Months Nurse Filling Out Transfusion NBUCHER 08/04/24 16:07 & Questions: Date: 08/04/24 08/04/24 16:07 Time: 16:08 08/04/24 16:07 Patient unable to answer at this time (ie. 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 Hx Now Gestational Age (in weeks): EDC: Hx Hx Para Hx Section SAB No 08/04/24 16:07 Active Medications Active Medications: Current Medications Generic Name Dose Route Start Last Admin Trade Name Freq PRN Reason Stop Dose Admin Cefazolin Sodium 3 gm/ Sodium 115 mls @ 150 mls/hr 08/08/24 11:00 Chloride IV 08/08/24 11:45 PREOP ONE Lactated Ringer's 1,000 mls @ 15 mls/hr 08/08/24 09:45 IV .Q48H IVET PFSH Medical History Preop testing History of Clostridium difficile infection Wears glasses Walker as ambulation aid Arthritis Prostate disease High cholesterol Former smoker Lymph edema History of stress test History of echocardiogram Cardiology follow-up encounter History of atrial fibrillation Diverticulosis Cancer Kidney stones CPAP (continuous positive airway pressure) dependence Sleep apnea Closed wedge compression fracture of T11 vertebra Debility Venous insufficiency (chronic) (peripheral) Onycholysis Ankle fracture, left Fall Atrial fibrillation Closed fracture of left hip Closed left humeral fracture Longstanding persistent atrial fibrillation Essential hypertension Former tobacco use Sepsis History of Clostridium difficile infection (01/09/19) Traumatic hemothorax (12/30/18) History of subdural hematoma (post traumatic) (12/27/18) Fracture of ninth thoracic vertebra (12/27/18) Hyperlipidemia Atherosclerotic heart disease of [place] coronary artery without angina pectoris half-way (current) use of anticoagulants Home Medications ?Medication ?Instructions ?Recorded ?Last Taken ?Type potassium chloride 20 mEq 20 meq PO DAILY supplement 12/03/18 06/13/24 History tablet,extended release cetirizine 10 mg capsule 10 mg PO DAILY Allergy 12/27/18 03/16/24 History metoprolol tartrate 50 mg tablet 50 mg PO BID bp 03/15/19 06/13/24 History cholecalciferol (vitamin D3) 1,250 1,000 unit PO DAILY supplement 10/29/20 06/13/24 History mcg (50,000 unit) capsule terazosin 10 mg capsule 10 mg PO QPM BPH 12/01/22 06/12/24 History enzalutamide 40 mg tablet (Xtandi) 160 mg (4 x 40 mg) PO QPM Prostate 12/16/22 03/15/24 Rx #0 tabs fluticasone propionate 50 2 spray NASAL DAILY Allergies #0 12/16/22 03/16/24 Rx mcg/actuation nasal grams spray,suspension atorvastatin 80 mg tablet 80 mg PO DAILY Cholesterol 03/12/24 03/11/24 History furosemide 20 mg tablet 20 mg PO DAILY Edema 03/12/24 03/11/24 History citalopram 10 mg tablet 20 mg PO QHS depression 05/19/24 06/12/24 History warfarin 5 mg tablet 5 mg PO DAILY BLOOD THINNER #1 TAB 06/13/24 03/11/24 Rx acetaminophen 500 mg tablet 1,000 mg (2 x 500 mg) PO Q8 #0 tabs 06/28/24 Unknown Rx lidocaine 5 % topical patch 1 patch topical DAILY PRN pain 08/04/24 Unknown History Allergy/AdvReac Type Severity Reaction Status Date / Time amiodarone AdvReac Intermediate It did not Verified 08/04/24 16:04 work, also bad dreams and neuropathy Family History Father , Age 57 Myocardial infarction CAD (coronary artery disease) ETOH abuse Mother , Age 47, of bone cancer Bone cancer Brother , age 45, of AIDS AIDS (acquired immune deficiency syndrome) Surgical History History of lumbar laminectomy History of colonoscopy History of cholecystectomy History of left hip hemiarthroplasty H/O cervical spine surgery (01/2020) H/O coronary artery bypass surgery (11/26/98) History of thoracic spinal fusion (12/30/18) History of left heart catheterization (11/26/98) Social History household members: none Smoking Status: Former smoker alcohol intake: current details: once a week substance use type: does not use Review of Systems (Anesthesia) ROS Narrative System reviewed and no additional complaints, except as documented.
[2024-08-08] MEDS: Lactated Ringers 1,000 ML 15 ML IV (10:04)
--- NOTE | 2024-08-08 11:00 | CYST_PTH ---
PATIENT: MEENAKSHI NI Jr. LOC: [facility] [place] U#:[id number] AGE/SX: 78/M ROOM: RE08/08/[address]: Dr. Devon Lynn MD : 1945 BED: DIS: 08/08/2024 SPEC #: [id number] RECD: 08/08/24 13:17 STATUS: SHAMA ALICIA #: [id number] LONNIE: 08/08/24 11:[address]: Devon Lynn DEPT: SURGICAL PATHOLOGY RECD BY: Analilia Chambers ENTERED: 08/08/24 13:40 SP TYPE: Cyst OTHR DR: Dr. James Pisano MD Tissues: CYST Procedures: Surgery Specimen Level III HEADER OPERATION: Sebaceous cyst on back PRE-OP DIAGNOSIS: Sebaceous cyst on back TISSUE SUBMITTED: Sebaceous cyst on left back MICROSCOPIC DIAGNOSIS Sebaceous cyst on left back, excision: Epidermal inclusion cyst with rupture and associated acute and chronic inflammation and foreign body giant cell reaction. SJ.mr 08/09/2024 MICROSCOPIC DESCRIPTION Slides are reviewed. GROSS DESCRIPTION Received in fixative is one container labeled with the patient's name and designated Sebaceous cyst on left back. The specimen consists of a piece of skin with underlying tissue measuring 3.5 x 1.5cm and up to 2.0cm in thickness. Sections reveal a cyst filled with mucoid cheesy material. Machine Tack Puller sections are submitted in two cassettes. 08/08/2024 TC:5 CPT:60148
--- NOTE | 2024-08-08 11:34 | HP.PCM_ITS ---
History and Physical Date of Admission: 08/08/24 Date of Service: 07/29/24 MR#: [id number] Acct: [id number] Name: MEENAKSHI NI Jr. Rep #: [id number] : 1945 Provider: Dr. Devon Lynn MD Age/Sex: 78/M Location: [facility] Status: Signed Intake Vital Signs 06/29/2413:39 07/29/2413:20 Height 6 ft 6 ft Weight: 264 lb BMI 35.8 BP 134/84 H Blood Pressure Location Rt brachial Position Sitting Respiration 18 Pulse 75 Pulse Source Monitor Temp 97.7 F L Temp Source Temporal Pulse Oximetry (%) 96 Oxygen Delivery Method room air Intake Visit Reasons: SEBACEOUS CYST Chief Complaint: sebaceous cyst Accompanied by: Caregiver Is patient in pain?: No Allergies amiodarone Adverse Reaction (Intermediate, Verified 07/29/24 13:21) It did not work, also bad dreams and neuropathy Medications ?Medication ?Instructions ?Recorded ?Confirmed ?Type potassium chloride 20 mEq 20 meq PO DAILY supplement 12/03/18 07/29/24 History tablet,extended release cetirizine 10 mg capsule 10 mg PO DAILY Allergy 12/27/18 07/29/24 History metoprolol tartrate 50 mg tablet 50 mg PO BID bp 03/15/19 07/29/24 History cholecalciferol (vitamin D3) 1,250 1,000 unit PO DAILY supplement 10/29/20 07/29/24 History mcg (50,000 unit) capsule terazosin 10 mg capsule 10 mg PO QPM BPH 12/01/22 07/29/24 History enzalutamide 40 mg tablet (Xtandi) 160 mg (4 x 40 mg) PO QPM Prostate 12/16/22 07/29/24 Rx #0 tabs fluticasone propionate 50 2 spray NASAL DAILY Allergies #0 12/16/22 07/29/24 Rx mcg/actuation nasal grams spray,suspension atorvastatin 80 mg tablet 80 mg PO DAILY Cholesterol 03/12/24 07/29/24 History furosemide 20 mg tablet 20 mg PO DAILY Edema 03/12/24 07/29/24 History doxazosin 4 mg tablet (Cardura) 4 mg PO DAILY heart 03/21/24 07/29/24 History citalopram 10 mg tablet 20 mg PO QHS depression 05/19/24 07/29/24 History warfarin 5 mg tablet 5 mg PO DAILY BLOOD THINNER #1 TAB 06/13/24 07/29/24 Rx acetaminophen 500 mg tablet 1,000 mg (2 x 500 mg) PO Q8 #0 tabs 06/28/24 07/29/24 Rx cephalexin 500 mg capsule 500 mg PO Q6 7 days #28 caps 06/28/24 07/29/24 Rx lidocaine 5 % topical patch 1 patch topical DAILY 30 days #30 06/28/24 07/29/24 Rx ea Have you fallen in the past year?: [facility] History Preop testing History of Clostridium difficile infection Wears glasses Walker as ambulation aid Arthritis Prostate disease High cholesterol Former smoker Lymph edema History of stress test History of echocardiogram Cardiology follow-up encounter History of atrial fibrillation Diverticulosis Cancer Kidney stones CPAP (continuous positive airway pressure) dependence Sleep apnea Closed wedge compression fracture of T11 vertebra Debility Venous insufficiency (chronic) (peripheral) Onycholysis Ankle fracture, left Fall Atrial fibrillation Closed fracture of left hip Closed left humeral fracture Longstanding persistent atrial fibrillation Essential hypertension Former tobacco use Sepsis History of Clostridium difficile infection (01/09/19) Traumatic hemothorax (12/30/18) History of subdural hematoma (post traumatic) (12/27/18) Fracture of ninth thoracic vertebra (12/27/18) Hyperlipidemia Atherosclerotic heart disease of [place] coronary artery without angina pectoris nursing home (current) use of anticoagulants Surgical History History of colonoscopy History of cholecystectomy History of left hip hemiarthroplasty H/O cervical spine surgery (01/2020) H/O coronary artery bypass surgery (11/26/98) History of thoracic spinal fusion (12/30/18) History of left heart catheterization (11/26/98) Family History Father , Age 57 Myocardial infarction CAD (coronary artery disease) ETOH abuseMother , Age 47, of bone cancer Bone cancerBrother , age 45, of AIDS AIDS (acquired immune deficiency syndrome) Social History household members: none Smoking Status: Former smoker alcohol intake: current details: once a week substance use type: does not use HPI HPI HPI: Patient is a 78-year-old male who presents for follow-up of a recent transitional care unit stay where I was consulted to evaluate patient for excision of a left upper back sebaceous cyst. Patient had spent time in the transitional care unit recovering after a ground-level fall at home. He presents today with his caregiver. He shares that he feels great except for discomfort in his right leg. He notes that he is due to see orthopedic surgery next month. Concerning his back, he denies any tenderness. He does confirm that there has been some drainage. He further adds that he is being attended to by home health nurse who has been applying a bandage but also has been squeezing the area to try to promote further drainage? Mr. Ni continues on warfarin therapy as prescribed by the [facility]. ROS General General: No weight change, appetite, fatigue, colon cancer, breast cancer or weakness HEENT HEENT: No difficulty swallowing, eye injury, eye surgery, swollen glands or hoarseness Endo Endocrine: No thyroid disease, diabetes mellitus, thyroid cancer, Hair loss, heat intolerance or cold intolerance Skin Skin: No rash or changing moles Musc Musculoskeletal: Yes back problems and arthritis; No rheumatoid arthritis, gout or joint pain Cardio Cardiovascular: Yes heart disease and high blood pressure; No murmur, pacemaker, atrial fibrillation, heart attack, heart stent, palpitations, shortness of breat with exertion or chest pain Psych Psychiatric: Yes depression and anxiety; No hearing voices Resp Respiratory: No shortness of breath, Yes sleep apnea, No cough, No COPD, No asthma, No emphysema and No wheezing Gastro Gastrointestinal: No abdominal pain, No nausea or vomiting, No diarrhea, No constipation, No blood in stool, No acid reflux, No hemorrhoids, No ulcers, No gallbladder problem and No black,tarry stools Giovani Hematologic: Yes blood thinners, No blood disorders, No bleeding, No anemia and No blood clots Additional Details: warfarin Neuro Neurologic: No numbness, No tingling and No weakness Exam Const General: cooperative, comfortable and no acute distress Other: Patient remains in wheelchair as he is examined Skin Other: Left upper back sebaceous cyst exhibits less erythema, however, there is some bloody drainage along its superior margin. Area of fullness is approximately 3 cm in width. I do not see any evidence of sebaceous drainage. Patient denies tenderness with palpation about this area. Assessment and Plan Assessment and Plan (1) Sebaceous cyst: Status: Chronic Comment: Patient is a 78-year-old male with recurrent sebaceous cyst of left upper back. As indicated, patient underwent I&D of this area previously and he shares today that he has home health nursing squeezing the area despite my recommendations to allow the area of inflammation to subside. Thus I have tried to stress to him that this activity may actually complicate our plans for surgical excision. On exam today the areas not infected appearing and patient denies tenderness. With his history of prior intervention, beneath thick skin and ongoing anticoagulation, I do recommend excision in the operating room with MAC sedation. Procedure was described in brief and I suggested that we may need to take a small strip of skin with the underlying sebaceous cyst in order to extirpated completely. Patient is in agreement with this description. Plan: ? Seek cardiac clearance to hold warfarin?seeking preop INR of 1.5 or less ? Outpatient procedure for excision of left upper back sebaceous cyst excision under MAC sedation. I have examined the patient and the H&P has been reviewed. There are no clinical changes since date of exam. Patient confirms hold of his warfarin and his INR is indeed 1.3. This is permissive to allow us to proceed for excision of left sebaceous cyst as planned. Patient denies any further procedure questions. I did review postprocedural activity recommendations. Will now proceed to the operating room for excision of left sebaceous cyst.
[2024-08-08] MEDS: Cefazolin 3 GM in 0.9% Normal Saline (100mL Bag) 100 ML IV (11:36)
[2024-08-08] MEDS: Bupivacaine 0.25% 30 ML Vial (12:15)
--- NOTE | 2024-08-08 12:34 | OP.PCM_ITS ---
Report of Operation Date of Procedure: 08/08/24 Pre-Operative Diagnosis: Left upper back sebaceous cyst Post-Operative Diagnosis: Same Surgery/Procedure Performed:: Excision of left upper back sebaceous cyst with primary layered closure Description of Surgical Findings:: Excised specimen measuring 3.5 cm long by 1.5 cm wide by 1.5 cm deep with complete excision of the cyst wall Surgeon: Devon Lynn quality assurance supervisor: Pamela Stewart Type of Anesthesia: General/Supplemental Anesthesiologist: Ebenezer Desir Estimated Blood Loss (mL): 20 Description of Procedure: Procedure: Excision of left back sebaceous cyst Description: After confirming our written consents and confirming the location of patient's subcutaneous lesion through preprocedure marking he was brought to the operating room. He was then induced with general anesthetic and an LMA airway was placed. He was positioned in a right lateral decubitus position taking care to pad the pressure points. The incision was planned based on palpation of the mass and centering incision in the area while trying to perform a 3:1 ratio with an elliptical incision. Local anesthetic was instilled for a total volume of 10 mL quarter percent plain bupivacaine. Then our elliptical incision was made sharply with a 15 blade scalpel. Electrocautery was used to carry the dissection down through the dermal layer to the subcutaneous tissue. The sebaceous cyst was then sharply removed with scissors. Any bleeders that were encountered during this excision were promptly addressed with application of selective electrocautery. Pressure was applied to assist with hemostasis. The cavity was copiously irrigated with sterile saline. Then the wound was closed in layers using 2-0 Vicryl for the deep dermal layer, interrupted more superficial dermal sutures with 3-0 Vicryl and a running subcuticular 4-0 Monocryl. Steri-Strips and bandages were applied as dressings. An OpSite was placed as a final dressing and patient was awakened from anesthetic and transferred to PACU for ongoing recovery. Complications None Admit VTE Documentation VTE Mechan Device Prophylaxis: SCD's Procedures Integumentary 116xx: [id number] Exc tr-ext mal+kd 3.1-4 cm
--- NOTE | 2024-08-08 12:38 | EX.PCM.DISCH ---
Discharge Instructions Diet Discharge Diet: No restrictions Activity Discharge Activity: May Not Drive (for 24 hours post-procedure) May shower in (days): 2 Ice area for (Minutes): 20 Lifting Restrictions: No lifting greater than 15 pounds with affected extremity for 2 weeks after Keep extremity elevated above heart level: Operative Extremity Dressing / Incision Call your doctor if your incision/area has: Continuous Slow Oozing, Sudden Increased Bleeding, Increased Pain/ Swelling, Increased Redness, Foul Smelling Discharge and Swelling at the incision site Call your doctor if you observe: Fever of 101 or Higher Remove Dressing in: 2 days (Please leave Steri-Strips intact until they fall off spontaneously or are taken off at your follow-up visit) Cleanse incision/area with: Soap & Water Follow Up Care Please Follow Up With: Devon Lynn MD When: 10-14 days postop Test Results: Test results from this visit will be discussed in further detail at your follow-up appointment, if applicable. Discharge Plan Admission Primary Reason for Your Visit: Excision of sebaceous cyst Attending Provider: Devon Lynn Primary Care Provider: James Pisano Chi Instructions Additional Instructions / Restrictions: Please resume warfarin at 48 hours post procedure Print Language: Estonian Discharge Orders/Prescriptions Prescriptions: Continued potassium chloride 20 mEq tablet extended release 20 meq PO DAILY cholecalciferol (vitamin D3) 1,250 mcg (50,000 unit) capsule 1,000 unit PO DAILY metoprolol tartrate 50 mg tablet 50 mg PO BID cetirizine 10 MG capsule 10 mg PO DAILY terazosin 10 mg capsule 10 mg PO QPM citalopram 10 mg tablet 20 mg PO QHS fluticasone propionate 50 mcg/actuation [place],Suspension 2 spray NASAL DAILY Qty: 0 0RF Xtandi 40 mg Tablet 160 mg PO QPM Qty: 0 0RF atorvastatin 80 mg tablet 80 mg PO DAILY furosemide 20 mg tablet 20 mg PO DAILY acetaminophen 500 mg Tablet 1,000 mg PO Q8 Qty: 0 0RF warfarin 5 mg tablet 5 mg PO DAILY Qty: 1 0RF Protocol: Dose Management Condition: Thursday Dose/Route: 0 mg Instruction: 0 tablets Condition: Thursday Dose/Route: 0 mg Instruction: 0 tablets Condition: Thursday Dose/Route: 7.5 mg Instruction: 1.5 x 5 mg tablets Condition: Thursday Dose/Route: 0 mg Instruction: 0 tablets Condition: Dose/Route: 0 mg Instruction: 0 tablets Condition: Thursday Dose/Route: 0 mg Instruction: 0 tablets Condition: Thursday Dose/Route: 0 mg Instruction: 0 tablets Protocol Text: Adjustment Start Date: Thursday08/02/24 INR Value: 2.2 INR Date: 08/02/24 Recheck Date: 08/16/24 lidocaine 5 % Adhesive Patch,Medicated 1 patch topical DAILY PRN (Reason: pain) Protocol: *Topical Application Instructions APPLICATION INSTRUCTIONS: lower back Referrals / Follow Up: James Pisano Chi, MD [Primary Care Provider] - Disposition Disposition (needs filled in before D/C Order can be placed): Home, Self Care
--- NOTE | 2024-08-08 13:18 | PCM.POST.ANE ---
Anesthesia: Postop Eval I Current Vital Signs Temperature: 97.6 F Pulse Rate: 109 Blood Pressure: 113/92 Respiratory Rate: 16 Pulse Ox: 92 Oxygen Delivery Method: Room Air Assessment Airway patent: Yes Spontaneous unlabored respirations: Yes Mental status: Awake and Calm nausea: No Vomiting: No Anesthesia Complication: No Fluid Hydration Crystalloid volume administer (ml): 800 Total IV fluid infused: 800 Progress Note Anesthesia document: Postop Eval 1 completed: Yes
--- NOTE | 2024-08-08 13:18 | POSTOPAN2_ITS ---
Anesthesia Postop Eval I Sum Postop Eval Completion status Anesthesia document: Postop Eval 1 completed: Yes Anesthesia Postop Eval I Summary Anesthesia Postop Eval I Summary: Anesthesia Postop Eval I: Assessment Summary Airway patent Yes 08/08/24 13:18 [employer]RB[employer] [email or web address] Spontaneous unlabored Yes 08/08/24 13:18 [employer]RB[employer] RENEWAL MANAGER.MDOT respirations Mental status Awake,Calm 08/08/24 13:18 URBAN RENEWAL MANAGER.MDOT nausea No 08/08/24 13:18 URBAN RENEWAL MANAGER.MDOT Vomiting No 08/08/24 13:18 URBAN RENEWAL [email or web address] Anesthesia Postop Eval I: Fluid Summary Crystalloid volume administer 800 08/08/24 13:18 URBAN RENEWAL MANAGER.MDOT (ml) Colloids volume administered ( ml) Blood Product volume administered (ml) Total IV fluid infused 800 08/08/24 13:18 URBAN RENEWAL MANAGER.MDOT Anesthesia Postop Eval I: Summary Notes Anesthesia Complication No 08/08/24 13:18 URBAN RENEWAL [email or web address] Anesthesia Complication Comment: Post-operative progress note Anesthesia: Postop Eval II Evaluation Mental status: Awake and Calm Pain Level: 0 nausea: No Vomiting: No Complications Anesthesia Complication: No
--- NOTE | 2024-08-08 13:18 | PCM.POSTANE2 ---
Anesthesia Postop Eval I Sum Postop Eval Completion status Anesthesia document: Postop Eval 1 completed: Yes Anesthesia Postop Eval I Summary Anesthesia Postop Eval I Summary: Anesthesia Postop Eval I: Assessment Summary Airway patent Yes 08/08/24 13:18 [email or web address] Spontaneous unlabored Yes 08/08/24 13:18 [email or web address] respirations Mental status Awake,Calm 08/08/24 13:18 [email or web address] nausea No 08/08/24 13:18 [email or web address] Vomiting No 08/08/24 13:18 [email or web address] Anesthesia Postop Eval I: Fluid Summary Crystalloid volume administer 800 08/08/24 13:18 [email or web address].MDOT (ml) Colloids volume administered ( ml) Blood Product volume administered (ml) Total IV fluid infused 800 08/08/24 13:18 [email or web address] Anesthesia Postop Eval I: Summary Notes Anesthesia Complication No 08/08/24 13:18 [email or web address] Anesthesia Complication Comment: Post-operative progress note Anesthesia: Postop Eval II Evaluation Mental status: Awake and Calm Pain Level: 0 nausea: No Vomiting: No Complications Anesthesia Complication: No
== END 2024-08-08 14:55 | disposition home or self-care (01) ==
LOC: SDC 09:21 → AC 09:24
PROVIDERS: PCP Family Medicine Geriatric Medicine; Referring Provider Surgery; Visit Provider Surgery
PROC: (CPT 11604; principal; 2024-08-08 10:45)
DX: L72.3 Sebaceous cyst (principal); I48.11 Longstanding persistent atrial fibrillation; I25.10 Atherosclerotic heart disease of native coronary artery without angina pectoris; I10 Essential (primary) hypertension; E78.00 Pure hypercholesterolemia, unspecified; G47.30 Sleep apnea, unspecified; Z79.899 Other long term (current) drug therapy; Z79.01 Long term (current) use of anticoagulants; Z95.1 Presence of aortocoronary bypass graft; Z87.891 Personal history of nicotine dependence
CPT/HCPCS: 11604; 00300; 36416; 85610; 88304; J7120; J2405

== ENCOUNTER → 2024-08-16 | Outpatient (CLI) | payer MEDICARE, SELFPAY ==
[2024-08-16 10:31] LABS: International Normalized Ratio 1.3; Prothrombin Time (Protime)PT. 16.1 SECONDS (11.7-14.9)
== END | disposition home or self-care (01) ==
LOC: LAB 09:07
PROVIDERS: PCP Family Medicine Geriatric Medicine; Visit Provider Internal Medicine Cardiovascular Disease
DX: I48.11 Longstanding persistent atrial fibrillation (principal); Z79.01 Long term (current) use of anticoagulants
CPT/HCPCS: 36415; 85610

== ENCOUNTER → 2024-08-30 | Outpatient (CLI) | payer MEDICARE, SELFPAY ==
[2024-08-30 11:42] LABS: International Normalized Ratio 2.5; Prothrombin Time (Protime)PT. 26.4 SECONDS (11.7-14.9)
== END | disposition home or self-care (01) ==
LOC: LAB 08:02
PROVIDERS: PCP Family Medicine Geriatric Medicine; Visit Provider Internal Medicine Cardiovascular Disease
DX: I48.91 Unspecified atrial fibrillation (principal); Z79.01 Long term (current) use of anticoagulants
CPT/HCPCS: 36415; 85610

== ENCOUNTER → 2024-09-20 | Outpatient (CLI) | payer MEDICARE, SELFPAY ==
[2024-09-20 11:19] LABS: International Normalized Ratio 1.8; Prothrombin Time (Protime)PT. 20.8 SECONDS (11.7-14.9)
== END | disposition home or self-care (01) ==
LOC: LAB 08:25
PROVIDERS: PCP Family Medicine Geriatric Medicine; Visit Provider Internal Medicine Cardiovascular Disease
DX: I48.91 Unspecified atrial fibrillation (principal); Z79.01 Long term (current) use of anticoagulants
CPT/HCPCS: 36415; 85610

== ENCOUNTER → 2024-10-04 | Outpatient (CLI) | payer MEDICARE, SELFPAY ==
[2024-10-04 11:08] LABS: Creatinine, Serum 0.64 mg/dL (0.70-1.30); EST Glomerular Filtration Rate 130 mL/min (>60); Est Glom Filt Rate - Afr Amer 157 mL/min (>60)
[2024-10-04 11:22] LABS: Microalbumin,Random Urine 47.9 mg/L (NO RANGE EST.)
[2024-10-04 11:39] LABS: International Normalized Ratio 2.5; Prothrombin Time (Protime)PT. 26.7 SECONDS (11.7-14.9)
[2024-10-04 13:50] LABS: Albumin, Serum 3.2 g/dL (3.2-5.0)
== END | disposition home or self-care (01) ==
LOC: LAB 08:26
PROVIDERS: PCP Family Medicine Geriatric Medicine; Visit Provider Family Medicine Geriatric Medicine
DX: R77.0 Abnormality of albumin (principal); I48.91 Unspecified atrial fibrillation
CPT/HCPCS: 36415; 82040; 82043; 82565; 85610

== ENCOUNTER 2024-10-25 17:04 | Outpatient (RCR) | payer MEDICARE, SELFPAY | END 2024-11-08 23:59 | LOC: POLAB3 17:04 | PROVIDERS: PCP Family Medicine Geriatric Medicine; Referring Provider Family Medicine Geriatric Medicine; Visit Provider Internal Medicine Cardiovascular Disease | DX: I10 Essential (primary) hypertension (principal); E55.9 Vitamin D deficiency, unspecified ==

== ENCOUNTER → 2024-11-16 | Outpatient (CLI) | payer MEDICARE, SELFPAY ==
[2024-11-16 10:50] LABS: International Normalized Ratio 1.6; Prothrombin Time (Protime)PT. 19.7 SECONDS (11.7-14.9)
== END | disposition home or self-care (01) ==
LOC: LAB 08:19
PROVIDERS: PCP Family Medicine Geriatric Medicine; Visit Provider Family Medicine Geriatric Medicine
DX: I48.91 Unspecified atrial fibrillation (principal); Z79.01 Long term (current) use of anticoagulants
CPT/HCPCS: 36415; 85610

== ENCOUNTER → 2024-11-25 | Outpatient (CLI) | payer MEDICARE, SELFPAY ==
[2024-11-25 10:31] LABS: Prothrombin Time (Protime)PT. 23.1 SECONDS (11.7-14.9)
== END | disposition home or self-care (01) ==
LOC: LAB 09:13
PROVIDERS: PCP Family Medicine Geriatric Medicine; Visit Provider Internal Medicine Cardiovascular Disease
DX: I48.91 Unspecified atrial fibrillation (principal); Z79.01 Long term (current) use of anticoagulants

== ENCOUNTER 2024-12-01 10:46 | Emergency (ER) | payer MEDICARE, SELFPAY ==
[2024-12-01 10:48] VITALS: BP 166/88; PULSE 70; RESP 18; TEMP 36.5; O2SAT 97; BMI 36.8
--- NOTE | 2024-12-01 11:16 | EKG12_ITS ---
Test Reason : FALL Blood Pressure : */* mmHG Vent. Rate : 80 BPM Atrial Rate : * BPM P-R Int : * ms QRS Dur : 100 ms QT Int : 396 ms P-R-T Axes : * 25 22 degrees QTcB Int : 456 ms Atrial fibrillation Abnormal ECG Confirmed by KAREEM SIMON, CHERRY ([id number]), advertising editor DAINA RIGGS ([id number]) on 12/06/2024 7:12:51 AM Referred By: Confirmed By: CHERRY SERNA MD
--- NOTE | 2024-12-01 11:16 | CT_ITS ---
EXAM: CT CERVICAL SPINE WITHOUT INTRAVENOUS CONTRAST CLINICAL INDICATION: neck pain TECHNIQUE: Helically acquired images were obtained of the cervical spine without intravenous contrast. 2D reformatted images were reviewed. This CT exam was performed using one or more of the following dose reduction techniques: automated exposure control, adjustment of the mA and/or kV according to patient size, and/or use of iterative reconstruction technique. RADIATION DOSE: CTDIvol = 29.18 mGy, DLP = 606.74 mGy-cm COMPARISON: No relevant prior studies available. FINDINGS: VERTEBRAE: Metallic plate with transfixing screws of C4 down to C6 and bone implant extending from the C5 vertebral body down to the upper C6 vertebral body. No acute fractures. No traumatic subluxation or malalignment normal cervical facet joints. No discrete lytic or blastic abnormality. Normal craniocervical junction and cervicothoracic junction. DISCS/SPINAL CANAL/NEURAL FORAMINA: Unremarkable. No critical stenosis. Normal central canal and intervertebral neuroforamina. SOFT TISSUES: Unremarkable. No prevertebral soft tissue swelling. VASCULATURE: Calcified plaques in both carotid bulbs. LYMPH NODES: Unremarkable. No cervical adenopathy. LUNG APICES: Unremarkable as visualized. Clear. CT/Spine Cervical without Contras IMPRESSION: 1. No CT evidence of acute fracture or traumatic subluxation of the cervical spine, craniocervical junction and cervicothoracic junction. 2. No CT evidence of suspicious cervical extruded disc fragment although limited by the absence of intrathecal contrast. 3. No CT evidence of cervical spinal stenosis. Electronically Signed: Stanley Davis MD at 12:06 [facility] ,
--- NOTE | 2024-12-01 11:16 | CT_ITS ---
EXAM: CT HEAD WITHOUT INTRAVENOUS CONTRAST CLINICAL INDICATION: head injury TECHNIQUE: Multiple axial images were obtained of the head without intravenous contrast. This CT exam was performed using one or more of the following dose reduction techniques: automated exposure control, adjustment of the mA and/or kV according to patient size, and/or use of iterative reconstruction technique. RADIATION DOSE: CTDIvol = 44.99 mGy, DLP = 812.98 mGy-cm COMPARISON: CT head without contrast 07/25/2023. FINDINGS: BRAIN AND EXTRA-AXIAL SPACES: Tubular calcifications in the cavernous segments of both internal carotid arteries. Minimal calcified plaque in the intradural segment of the left vertebral artery. No intracranial bleed, intra-axial or extra-axial. No acute cortical-based ischemic infarct. No midline shift or mass effect. Normal ventricles and cisterns for age. Posterior fossa structures are unremarkable. No hydrocephalus. BONES/JOINTS: Unremarkable. No discrete lytic or blastic abnormalities. SINUSES: Unremarkable as visualized. Clear. MASTOID AIR CELLS: Unremarkable. Clear. ORBITS: Visualized globes, extraocular muscles, optic nerves and retrobulbar fat appear unremarkable. CT/Brain/Head without Contrast IMPRESSION: 1. No CT evidence of intracranial bleeding or acute intracranial abnormality. 2. No significant interval change when compared to 07/25/2023. Electronically Signed: Stanley Davis MD at 11:51 EST ,
--- NOTE | 2024-12-01 11:17 | EX.ED.DYSGE1 ---
HPI <GRIFFIN Okeefe - Last Filed: 12/01/24 12:58> History of Present Illness Chief Complaint: Fall Narrative Narrative: Patient is a 79-year-old male who is currently on Coumadin for atrial fibrillation, however patient is currently off for the last 6 days secondary to trying to get a procedure for pain management. Other medical history includes hypertension depression hyperlipidemia BPH who [facility] apartment after mechanical fall. Pay states he was here today Q receiving blood work. His INR at that time was 1.3 Yesterday. Patient states that he was on his way home, when he slipped on the steps, he states he fell slowly but then when he fell down, he struck the top of his head. Patient is of abrasion to the top of his head. Denies any LOC. Patient states over the last 2 days, he has felt more weak because he has not been eating and drinking secondary to fasting for blood work. Patient denies any other injury. [facility] <GRIFFIN Okeefe - Last Filed: 12/01/24 12:58> [facility] Medical History Preop testing History of Clostridium difficile infection Wears glasses Walker as ambulation aid Arthritis Prostate disease High cholesterol Former smoker Lymph edema History of stress test History of echocardiogram Cardiology follow-up encounter History of atrial fibrillation Diverticulosis Cancer Kidney stones CPAP (continuous positive airway pressure) dependence Sleep apnea Closed wedge compression fracture of T11 vertebra Debility Venous insufficiency (chronic) (peripheral) Onycholysis Ankle fracture, left Fall Atrial fibrillation Closed fracture of left hip Closed left humeral fracture Longstanding persistent atrial fibrillation Essential hypertension Former tobacco use Sepsis History of Clostridium difficile infection (01/09/19) Traumatic hemothorax (12/30/18) History of subdural hematoma (post traumatic) (12/27/18) Fracture of ninth thoracic vertebra (12/27/18) Hyperlipidemia Atherosclerotic heart disease of [place] coronary artery without angina pectoris detention (current) use of anticoagulants Home Medications ?Medication ?Instructions ?Recorded ?Last Taken ?Type potassium chloride 20 mEq 20 meq PO DAILY supplement 12/03/18 08/07/24 History tablet,extended release cetirizine 10 mg capsule 10 mg PO DAILY Allergy 12/27/18 08/07/24 History metoprolol tartrate 50 mg tablet 50 mg PO BID bp 03/15/19 08/08/24 History cholecalciferol (vitamin D3) 1,250 1,000 unit PO DAILY supplement 10/29/20 08/07/24 History mcg (50,000 unit) capsule terazosin 10 mg capsule 10 mg PO QPM BPH 12/01/22 08/07/24 History enzalutamide 40 mg tablet (Xtandi) 160 mg (4 x 40 mg) PO QPM Prostate 12/16/22 08/07/24 Rx #0 tabs fluticasone propionate 50 2 spray NASAL DAILY Allergies #0 12/16/22 08/07/24 Rx mcg/actuation nasal grams spray,suspension atorvastatin 80 mg tablet 80 mg PO DAILY Cholesterol 03/12/24 08/07/24 History furosemide 20 mg tablet 20 mg PO DAILY Edema 03/12/24 08/07/24 History citalopram 10 mg tablet 20 mg PO QHS depression 05/19/24 08/07/24 History acetaminophen 500 mg tablet 1,000 mg (2 x 500 mg) PO Q8 #0 tabs 06/28/24 08/08/24 Rx lidocaine 5 % topical patch 1 patch topical DAILY PRN pain 08/04/24 08/07/24 History warfarin 5 mg tablet 5 mg PO DAILY BLOOD THINNER #90 09/26/24 Unknown Rx tabs Allergy/AdvReac Type Severity Reaction Status Date / Time amiodarone AdvReac Intermediate It did not Verified 12/01/24 10:50 work, also bad dreams and neuropathy Family History Father , Age 57 Myocardial infarction CAD (coronary artery disease) ETOH abuse Mother , Age 47, of bone cancer Bone cancer Brother , age 45, of AIDS AIDS (acquired immune deficiency syndrome) Surgical History History of lumbar laminectomy History of colonoscopy History of cholecystectomy History of left hip hemiarthroplasty H/O cervical spine surgery (01/2020) H/O coronary artery bypass surgery (11/26/98) History of thoracic spinal fusion (12/30/18) History of left heart catheterization (11/26/98) Social History household members: none Smoking Status: Former smoker alcohol intake: current details: once a week substance use type: does not use ROS <GRIFFIN Okeefe - Last Filed: 12/01/24 12:58> ROS ED ROS Narrative Constitutional: Negative for fever, chills, weight loss, weakness Eyes: Negative for vision loss, vision change, double vision ENT: Negative for any sore throat, ear pain, congestion Cardiovascular: Negative for any chest pain, tightness, palpitations Respiratory: Negative for any cough, sputum production, hemoptysis, dyspnea, dyspnea on exertion, orthopnea Gastrointestinal: Negative for any abdominal pain, nausea, vomiting, diarrhea, constipation, blood in stool, blood in vomit : Negative for any urinary frequency, dysuria, retention, blood in urine Muscle skeletal: Negative for any neck pain, back pain Neurological: Negative for any headache, syncope, dizziness Skin: Negative for any rashes, itching, lacerations. Positive for abrasion to the top of the head Psychiatric: Negative for any depression, anxiety, stress, suicidal ideation, homicidal ideation Hematologic: Negative for any excessive bruising, easy bleeding EXAM <GRIFFIN Okeefe - Last Filed: 12/01/24 12:58> Physical Exam Narrative Exam Narrative: Vital signs reviewed. HEET: Head normocephalic atraumatic, TMs clear bilaterally. Posterior pharynx is clear, moist mucous membranes. Nares clear bilaterally. Pupils are equal round reactive to light, negative for any hemotympanum or septal hematoma. Patient does have a abrasion, hematoma to the top of the scalp. Neck: Supple with no lymphadenopathy or tenderness. No signs of meningismus. Cardiac: Regular rate and rhythm no murmurs gallops or rubs, equal peripheral pulses bilaterally. Respiratory: Lungs clear to auscultation bilaterally. No chest tenderness. Abdomen: Soft, nontender, nondistended. No abdominal bruit or pulsatile masses. No hepatosplenomegaly Extremities: No peripheral edema, no signs of gross trauma or deformity. Active full range of motion of all extremities. Chronic venous stasis of bilateral lower extremities Neuro: Cranial nerves II through XII intact, no focal neurological deficits. Skin: Clean dry and intact with no rash, purpura, petechiae, vesicles or pustules. Backs/flank: No CVA tenderness, no midline spinal tenderness, no deformity. Psych: Normal mood and affect. No SI, HI or acute psychosis. Const Vital Signs: 12/01/24 10:48 12/01/24 12:47 12/01/24 14:00 Temperature 97.7 F L Temperature Source Oral Pulse Rate 70 82 81 Respiratory Rate 18 18 18 Respiratory Effort Blood Pressure 166/88 H 142/84 H 140/80 H Blood Pressure Mean 114 103 100 Pulse Ox 97 96 96 Oxygen Delivery Method Room Air 12/01/24 14:02 12/01/24 16:00 12/01/24 18:00 Temperature Temperature Source Pulse Rate 81 72 Respiratory Rate 16 Respiratory Effort Normal Blood Pressure 138/80 H 149/79 H Blood Pressure Mean 99 102 Pulse Ox 96 95 Oxygen Delivery Method Room Air 12/01/24 18:39 Temperature 98 F Temperature Source Pulse Rate 84 Respiratory Rate 16 Respiratory Effort Blood Pressure 140/72 H Blood Pressure Mean 94 Pulse Ox 99 Oxygen Delivery Method <Dr. Philip Cormier DO - Last Filed: 12/01/24 21:44> Physical Exam Const Vital Signs: 12/01/24 10:48 12/01/24 12:47 12/01/24 14:00 Temperature 97.7 F L Temperature Source Oral Pulse Rate 70 82 81 Respiratory Rate 18 18 18 Respiratory Effort Blood Pressure 166/88 H 142/84 H 140/80 H Blood Pressure Mean 114 103 100 Pulse Ox 97 96 96 Oxygen Delivery Method Room Air 12/01/24 14:02 12/01/24 16:00 12/01/24 18:00 Temperature Temperature Source Pulse Rate 81 72 Respiratory Rate 16 Respiratory Effort Normal Blood Pressure 138/80 H 149/79 H Blood Pressure Mean 99 102 Pulse Ox 96 95 Oxygen Delivery Method Room Air 12/01/24 18:39 Temperature 98 F Temperature Source Pulse Rate 84 Respiratory Rate 16 Respiratory Effort Blood Pressure 140/72 H Blood Pressure Mean 94 Pulse Ox 99 Oxygen Delivery Method MDM <GRIFFIN Okeefe - Last Filed: 12/01/24 12:58> MDM Lab Data Labs: Laboratory Results - last 24 hr 12/01/24 11:25 WBC 6.4 RBC 4.20 L Hgb 12.5 L Hct 37.6 L MCV 89.5 MCH 29.8 MCHC 33.2 RDW Std Deviation 45.3 H RDW Coeff of Dick 14.1 Plt Count 113 L MPV 9.0 Immature Gran % (Auto) 1.100 H Neut % (Auto) 75.3 H Lymph % (Auto) 14.0 L [place] % (Auto) 7.0 Eos % (Auto) 2.3 Baso % (Auto) 0.3 Absolute Neuts (auto) 4.8 Absolute Lymphs (auto) 0.90 Nucleated RBC % 0 PT 14.8 INR 1.1 Sodium 141 Potassium 3.7 Chloride 106 Carbon Dioxide 27.0 Anion Gap 8 BUN 14 Creatinine 0.64 L Estim Creat Clear Calc 104.87 Est GFR (MDRD) Af Amer 157 Est GFR (MDRD) Non-Af 130 BUN/Creatinine Ratio 22.0 H Glucose 105 Calcium 9.4 Radiography Diagnostic Testing: Clinical Impression(s) from Imaging Studies Brain CT 12/01/24 11:16 IMPRESSION: 1. No CT evidence of intracranial bleeding or acute intracranial abnormality. 2. No significant interval change when compared to 07/25/2023. Electronically Signed: Stanley Davis MD at 11:51 EST , Cervical Spine CT 12/01/24 11:[address]: [address] evidence of acute fracture or traumatic subluxation of the cervical spine, craniocervical junction and cervicothoracic junction. 2. No CT evidence of suspicious cervical extruded disc fragment although limited by the absence of intrathecal contrast. 3. No CT evidence of cervical spinal stenosis. Electronically Signed: Stanley Davis MD at 12:06 EST , Treatment and Re-Evaluation :: Differential diagnosis includes however is not limited to: Concussion, electrode abnormality, dehydration, skull fracture, intracranial bleeding, cervical strain Patient appears generally well, vital signs are stable, patient is nontoxic-appearing. Presenting to the emergency department after a mechanical fall down a couple steps over the fall he states was slow, and he did strike his head. Patient will receive a CT scan of the brain, cervical spine. Basic laboratory values will be drawn secondary to him stating that he is not been eating and drinking well the last 2 days. All radiologic examinations were read, reviewed by the emergency department attending. From these reads, a plan of care will be put in place. Patient's CBC shows stable anemia 12.5, no leukocytosis. Patient's PT is 14.8, INR is 1.1, patient is currently not on any Coumadin, he has been holding for a pain management procedure. Patient's chemistries were unremarkable. CT scan of the brain and cervical spine were negative. At this time, patient be ambulated with a walker, he will be fed here. He will receive a urinalysis, as long as the patient is able to ambulate with a steady gait with a walker, patient will be able be discharged home. <Dr. Philip Cormier, DO - Last Filed: 12/01/24 21:44> [facility] Narrative Medical decision making narrative: Attending note: I have personally performed a face to face assessment of the patient and have reviewed the EDDIE note. I personally made/approved the management plan and take responsibility for the patient management. I performed a substantive portion of the visit including all aspects of the following. My santo findings include: Mechanical fall head injury. He has held his warfarin last 6 days in preparations for spinal injections by pain management. No loss of consciousness. Mild pain lower back. Mild headache. Exam GCS 15. frontal scalp abrasions tenderness there is no lacerations or bleeds. No midline neck tenderness. There was paralumbar tenderness left greater than right no midline tenderness or step-offs. Trauma scans head and neck obtained no acute process. Labs obtained stable, INR 1.1 subtherapeutic, he has held his warfarin for planned procedure this coming Thursday. He was ambulated with a walker with no difficulties. Treated for his symptoms in the ED. Outpatient follow-up with his pain doctors. Lab Data Attestation: I reviewed the patient's lab results. Labs: Laboratory Results - last 24 hr 12/01/24 11:25 WBC 6.4 RBC 4.20 L Hgb 12.5 L Hct 37.6 L MCV 89.5 MCH 29.8 MCHC 33.2 RDW Std Deviation 45.3 H RDW Coeff of Dick 14.1 Plt Count 113 L MPV 9.0 Immature Gran % (Auto) 1.100 H Neut % (Auto) 75.3 H Lymph % (Auto) 14.0 L [place] % (Auto) 7.0 Eos % (Auto) 2.3 Baso % (Auto) 0.3 Absolute Neuts (auto) 4.8 Absolute Lymphs (auto) 0.90 Nucleated RBC % 0 PT 14.8 INR 1.1 Sodium 141 Potassium 3.7 Chloride 106 Carbon Dioxide 27.0 Anion Gap 8 BUN 14 Creatinine 0.64 L Estim Creat Clear Calc 104.87 Est GFR (MDRD) Af Amer 157 Est GFR (MDRD) Non-Af 130 BUN/Creatinine Ratio 22.0 H Glucose 105 Calcium 9.4 Radiography Diagnostic Testing: Clinical Impression(s) from Imaging Studies Brain CT 12/01/24 11:16 IMPRESSION: 1. No CT evidence of intracranial bleeding or acute intracranial abnormality. 2. No significant interval change when compared to 07/25/2023. Electronically Signed: Stanley Davis MD at 11:51 EST Reading Location ID and State: [facility] / [place] , Service support , Cervical Spine CT 12/01/24 11:[address]: [address] evidence of acute fracture or traumatic subluxation of the cervical spine, craniocervical junction and cervicothoracic junction. 2. No CT evidence of suspicious cervical extruded disc fragment although limited by the absence of intrathecal contrast. 3. No CT evidence of cervical spinal stenosis. Electronically Signed: Stanley Davis MD at 12:06 EST , Discharge Plan Triage Chief Complaint: Fall ED Midlevel Provider: Robert Zamarripa ED Provider: Philip Cormier Dx/Rx/DC Orders Clinical Impression: Fall, Head injury, Traumatic hematoma of scalp Instructions: ED Head Injury (Adult) Prescriptions: No Action potassium chloride 20 mEq tablet extended release 20 meq PO DAILY cholecalciferol (vitamin D3) 1,250 mcg (50,000 unit) capsule 1,000 unit PO DAILY metoprolol tartrate 50 mg tablet 50 mg PO BID cetirizine 10 MG capsule 10 mg PO DAILY terazosin 10 mg capsule 10 mg PO QPM citalopram 10 mg tablet 20 mg PO QHS fluticasone propionate 50 mcg/actuation Reading,Suspension 2 spray NASAL DAILY Qty: 0 0RF Xtandi 40 mg Tablet 160 mg PO QPM Qty: 0 0RF atorvastatin 80 mg tablet 80 mg PO DAILY furosemide 20 mg tablet 20 mg PO DAILY acetaminophen 500 mg Tablet 1,000 mg PO Q8 Qty: 0 0RF lidocaine 5 % Adhesive Patch,Medicated 1 patch topical DAILY PRN (Reason: pain) Protocol: *Topical Application Instructions APPLICATION INSTRUCTIONS: lower back warfarin 5 mg tablet 5 mg PO DAILY Qty: 90 3RF Protocol: Dose Management Condition: Thursday Dose/Route: 7.5 mg Instruction: 1.5 x 5 mg tablets Condition: Thursday Dose/Route: 7.5 mg Instruction: 1.5 x 5 mg tablets Condition: Thursday Dose/Route: 10 mg Instruction: 2 x 5 mg tablets Condition: Thursday Dose/Route: 7.5 mg Instruction: 1.5 x 5 mg tablets Condition: Dose/Route: 10 mg Instruction: 2 x 5 mg tablets Condition: Thursday Dose/Route: 7.5 mg Instruction: 1.5 x 5 mg tablets Condition: Thursday Dose/Route: 7.5 mg Instruction: 1.5 x 5 mg tablets Protocol Text: Adjustment Start Date: Thursday11/25/24 INR Value: 2.0 INR Date: 11/25/24 Recheck Date: 12/13/24 Primary Care Provider: James Pisano Chi Referrals: James Pisano Chi, MD [Primary Care Provider] - Activity Restrictions/Additional Instructions: Please maintain your hydration. Your INR is 1.1 today, you believe that is appropriate for your procedure. It is in our system here at [facility]. Print Language: Samoan Disposition Disposition: Home, Self Care Discharge Date/Time: 12/01/24 18:54
[2024-12-01] MEDS: Acetaminophen 500 MG Tablet 1000 MG PO ×2 (11:21→18:29)
[2024-12-01 11:40] LABS: Absolute Neutrophil Count 4.8 X10^3/uL (2.0-7.7); Basophil# 0.02 X10^3/uL; Basophil% 0.3 % (0-1); Eosinophil# 0.15 X10^3/uL; Eosinophils% 2.3 % (0-5); Hematocrit 37.6 % (40-54); Hemoglobin 12.5 g/dL (13.0-16.5); Mean Corp Hgb Conc 33.2 g/dL (32-36); Mean Corpuscular Hgb 29.8 pg (27.0-32.0); Mean Corpuscular Volume 89.5 fL (80-94); Monocyte# 0.45 X10^3/uL; NRBC Flagged by Analyzer 0 % (0-5); Neutrophil # 4.83 X10^3/uL (2.7-7.7); Neutrophil % 75.3 % (47-70); Platelet Count 113 K/mm3 (150-450); RBC Distribution Width CV 14.1 % (11.6-14.6); RBC Distribution Width SD 45.3 fl (35.1-43.9); White Blood Count 6.4 K/mm3 (4.4-11.0)
[2024-12-01 11:42] LABS: Anion Gap 8 (5-15); BUN 14 mg/dL (7-18); Calcium,Total 9.4 mg/dL (8.5-10.1); Chloride 106 mmol/L (98-107); Creatinine, Serum 0.64 mg/dL (0.70-1.30); EST Glomerular Filtration Rate 130 mL/min (>60); Est Glom Filt Rate - Afr Amer 157 mL/min (>60); Estimated Creatinine Clearance 104.87 ml/min; Glucose 105 mg/dL (74-106); Potassium 3.7 mmol/L (3.5-5.1); Sodium Level 141 mmol/L (136-145)
[2024-12-01 11:56] LABS: International Normalized Ratio 1.1; Prothrombin Time (Protime)PT. 14.8 SECONDS (11.7-14.9)
[2024-12-01] MEDS: Ondansetron 4 MG/2 ML Vial IV (12:13)
[2024-12-01] MEDS: Morphine 4 MG/ML Syringe IV (12:13)
[2024-12-01 12:47] VITALS: BP 142/84; PULSE 82; RESP 18; O2SAT 96; O2SAT 97
[2024-12-01 14:00] VITALS: BP 140/80; PULSE 81; RESP 18; O2SAT 96
[2024-12-01 16:00] VITALS: BP 138/80; PULSE 81; RESP 16; O2SAT 96
--- NOTE | 2024-12-01 16:41 | CM.ED ---
Social work Reason for referral: home health Referral source: Lauren RN and Melanie RN This SW was approached by Lauren RN and Melanie RN, stating patient was frustrated with not being admitted due to patient's weakness. This SW entered patient's room, introducing self and role at [facility]. Patient accepted SW visit and stated patient's biggest concern being the steps outside of patient's apartment. Patient states there being 10 total steps, but the section of 7 steps being the hardest to manage. Patient stated there being handrails on both sides of the steps, but patient reports still struggling due to not being able to fully rely on patient's left side. Patient stated falling 3 times in the last year and reported having variable pain on patient's lower left side that ranges from a 2 to a 5 on a pain scale. Patient stated the pain levels out when patient is able to stay still. Patient stated having friends in the area who would be able to help patient find alternative housing. Patient states having a caregiver, Guillermo, for the last 6 or 7 years. Patient reports Guillermo coming in at least once a week to help patient with cleaning, medications, groceries, and transportation to medical appointments. Patient states Jeno offering for patient to live in the other side of Guillermo's duplex, but patient stated being advised not to do so. Patient did not say who advised patient not to move in next to Guillermo, but patient stated Guillermo was a good caregiver, but would not be a good neighbor. Patient stated Guillermo is becoming fragile as well and has been struggling lately with helping patient up the stairs as much as patient needs. Patient states that Jeno helps patient some with bathing and dressing, though patient was sure to state that patient does the majority of this work by self. Patient reported having friends from [employer] who are supports for patient, as well as patient's brother in [place]. Patient states having enough DME and denies need for SNF at this time. Patient stated knowing patient will likely need to go to one of those places in the future, but patient stated not being ready for it at this time. Patient stated not being interested in [employer] [facility]. Patient also denied applying for Medicaid due to knowing patient would need to spend down in order to qualify. Per medical records, this has been told to patient in the recent past (June 2024) when patient met with Paula from [facility]. Per medical records, patient was admitted in June 2024 for adult failure to thrive. Patient was in TCU until July 04, 2024 when patient returned home with [facility] (PT, OT, SW, and [facility]). Patient stated enjoying having HHC, but reported it ending in September or October. Patient denied need to start HHC again. Patient reported following with Dr. Johnson for pain management. Patient was accepting of the following resources: [facility] referral, [facility] referral, list of private duty aides, transportation resources, and how to apply for Medicaid form. Patient paid privately for an ambulance to transport patient home upon discharge from the ED. Cehryl Marsh, NEWCOMER HOSTESS, BLOOD COLLECTOR
[2024-12-01 18:00] VITALS: BP 149/79; PULSE 72; O2SAT 95
[2024-12-01 18:39] VITALS: BP 140/72; PULSE 84; RESP 16; TEMP 36.6; O2SAT 99
--- NOTE | 2024-12-07 18:32 | CCN.REFER ---
Attempted to contact patient via phone call x2. Left VM. No return call.
--- NOTE | 2024-12-09 19:55 | CM.ED ---
Social work [facility] stating attempts were made to contact patient on 12/02/24, 12/03/24, and 12/06/24 with no response from patient. Cheryl Marsh, RIG SUPERINTENDENT, PLACEMENT OFFICER
== END 2024-12-01 18:54 | disposition home or self-care (01) ==
PROVIDERS: Nurse Practitioner; Emergency Provider Emergency Medicine; PCP Family Medicine Geriatric Medicine; Visit Provider Emergency Medicine
DX: S00.03XA Contusion of scalp, initial encounter (principal); I48.91 Unspecified atrial fibrillation; I25.10 Atherosclerotic heart disease of native coronary artery without angina pectoris; Z87.891 Personal history of nicotine dependence; Z79.01 Long term (current) use of anticoagulants; Z95.1 Presence of aortocoronary bypass graft; W10.9XXA Fall (on) (from) unspecified stairs and steps, initial encounter
CPT/HCPCS: 70450; 72125; 80048; 85025; 85610; 93005; 96374; 96375; 96376; 99285; A4216; J2405

== ENCOUNTER → 2024-12-01 | Outpatient (CLI) | payer MEDICARE, SELFPAY ==
[2024-11-30 16:34] LABS: INR Fingerstick 1.3; Prothrombin Time Fingerstick 14.4 SEC (11.7-14.9)
[2024-12-05 12:03] LABS: INR Fingerstick 1.3; Prothrombin Time Fingerstick 14.1 SEC (11.7-14.9)
== END | disposition home or self-care (01) ==
PROVIDERS: PCP Family Medicine Geriatric Medicine; Referring Provider Anesthesiology; Visit Provider Anesthesiology
DX: Z79.01 Long term (current) use of anticoagulants (principal)
CPT/HCPCS: 36416; 85610

== ENCOUNTER → 2024-12-13 | Outpatient (CLI) | payer MEDICARE, SELFPAY ==
[2024-12-13 11:55] LABS: International Normalized Ratio 1.9; Prothrombin Time (Protime)PT. 21.8 SECONDS (11.7-14.9)
== END | disposition home or self-care (01) ==
LOC: LAB 08:54
PROVIDERS: PCP Family Medicine Geriatric Medicine; Visit Provider Internal Medicine Cardiovascular Disease
DX: I48.91 Unspecified atrial fibrillation (principal); Z79.01 Long term (current) use of anticoagulants
CPT/HCPCS: 36415; 85610

== ENCOUNTER → 2024-12-28 | Outpatient (CLI) | payer MEDICARE, SELFPAY ==
[2024-12-28 10:16] LABS: Prothrombin Time (Protime)PT. 23.3 SECONDS (11.7-14.9)
== END | disposition home or self-care (01) ==
LOC: LAB 09:04
PROVIDERS: PCP Family Medicine Geriatric Medicine; Visit Provider Internal Medicine Cardiovascular Disease
DX: I48.91 Unspecified atrial fibrillation (principal); Z79.01 Long term (current) use of anticoagulants
CPT/HCPCS: 36415; 85610

== ENCOUNTER → 2025-01-19 | Outpatient (CLI) | payer MEDICARE, SELFPAY ==
[2025-01-19 10:06] LABS: Prothrombin Time (Protime)PT. 31.6 SECONDS (11.7-14.9)
== END | disposition home or self-care (01) ==
LOC: LAB 07:56
PROVIDERS: PCP Family Medicine Geriatric Medicine; Visit Provider Internal Medicine Cardiovascular Disease
DX: I48.91 Unspecified atrial fibrillation (principal); Z79.01 Long term (current) use of anticoagulants
CPT/HCPCS: 36415; 85610

== ENCOUNTER → 2025-02-09 | Outpatient (CLI) | payer MEDICARE, SELFPAY | END | disposition home or self-care (01) | PROVIDERS: PCP Family Medicine Geriatric Medicine; Referring Provider Family Medicine Geriatric Medicine; Visit Provider Family Medicine Geriatric Medicine | DX: N39.0 Urinary tract infection, site not specified (principal) | CPT/HCPCS: 87086; 87088 ==

== ENCOUNTER → 2025-02-09 | Outpatient (CLI) | payer MEDICARE, SELFPAY ==
--- NOTE | 2025-02-09 17:05 | RAD_ITS ---
EXAM: XR Chest, 2 Views CLINICAL INDICATION: SOB TECHNIQUE: Frontal and lateral views of the chest. COMPARISON: No relevant prior studies available. FINDINGS: LUNGS AND PLEURAL SPACES: Bibasilar atelectasis or pneumonia. HEART: Cardiomegaly with mild congestion. MEDIASTINUM: Unremarkable. Normal mediastinal contour. BONES/JOINTS: Unremarkable. No acute fracture. RAD/Chest PA and Lateral IMPRESSION: 1. Bibasilar atelectasis or pneumonia. 2. Cardiomegaly with mild congestion. [facility]
[2025-02-09 17:39] LABS: Absolute Lymphocyte Count 0.71 X10^3/uL (0.83-4.51); Basophil# 0.02 X10^3/uL; Basophil% 0.5 % (0-1); Eosinophil# 0.16 X10^3/uL; Eosinophils% 3.7 % (0-5); Hematocrit 34.6 % (40-54); Hemoglobin 11.3 g/dL (13.0-16.5); Lymphocyte # 0.71 X10^3/ul (0.83-4.51); Lymphocyte % 16.6 % (19-41); Mean Corp Hgb Conc 32.7 g/dL (32-36); Mean Corpuscular Hgb 29.6 pg (27.0-32.0); Mean Corpuscular Volume 90.6 fL (80-94); Mean Platelet Vol. 9.5 fl (6.2-12.0); Monocyte# 0.33 X10^3/uL; Monocyte% 7.7 % (0-10); NRBC Flagged by Analyzer 0 % (0-5); Neutrophil # 3.04 X10^3/uL (2.7-7.7); Neutrophil % 71.3 % (47-70); Platelet Count 105 K/mm3 (150-450); RBC Distribution Width CV 13.4 % (11.6-14.6); RBC Distribution Width SD 44.1 fl (35.1-43.9); Red Blood Count 3.82 M/mm3 (4.6-6.2); White Blood Count 4.3 K/mm3 (4.4-11.0)
[2025-02-09 18:26] LABS: ALB/GLOB Ratio 1.2 RATIO (0.9-2.4); AST(SGOT) 27 U/L (<=37); Alanine Aminotransfer ALT/SGPT 21 U/L (<=46); Albumin, Serum 3.9 g/dL (3.4-4.8); Alkaline Phosphatase 153 U/L (40-129); Anion Gap 10 (5-15); BUN 13 mg/dL (4-19); BUN/Creat Ratio 21.7 RATIO (10-20); Calcium,Total 9.2 mg/dL (7.6-11.0); Carbon Dioxide 26.1 mmol/L (21.0-32.0); Chloride 105 mmol/L (98-108); Creatinine, Serum 0.61 mg/dL (0.70-1.20); EST Glomerular Filtration Rate 99 (>60); Globulin 3.2 g/dL (2.2-4.2); Glucose 98 mg/dL (70-99); Potassium 4.2 mmol/L (3.3-5.1); Pro- Brain NATRIURETIC PEPTIDE 561 pg/mL (<=1800); Protein, Total 7.1 g/dL (5.9-8.4); Sodium Level 141 mmol/L (133-145); Total Bilirubin 1.02 mg/dL (0.00-1.30)
== END | disposition home or self-care (01) ==
LOC: RAD 16:34
PROVIDERS: PCP Family Medicine Geriatric Medicine; Referring Provider Family Medicine Geriatric Medicine; Visit Provider Family Medicine Geriatric Medicine
DX: I11.0 Hypertensive heart disease with heart failure (principal); I50.30 Unspecified diastolic (congestive) heart failure; R06.02 Shortness of breath
CPT/HCPCS: 36415; 71046; 80053; 83880; 85025

== ENCOUNTER → 2025-02-10 | Outpatient (CLI) | payer MEDICARE, SELFPAY ==
[2025-02-10 11:11] LABS: International Normalized Ratio 2.5; Prothrombin Time (Protime)PT. 27.8 SECONDS (11.7-14.9)
== END | disposition home or self-care (01) ==
LOC: LAB 09:41
PROVIDERS: PCP Family Medicine Geriatric Medicine; Visit Provider Internal Medicine Cardiovascular Disease
DX: I48.91 Unspecified atrial fibrillation (principal); Z79.01 Long term (current) use of anticoagulants
CPT/HCPCS: 36415; 85610

== ENCOUNTER → 2025-02-15 | Outpatient (CLI) | payer MEDICARE, SELFPAY ==
[2025-02-15 13:28] LABS: International Normalized Ratio 1.2; Prothrombin Time (Protime)PT. 15.1 SECONDS (11.7-14.9)
== END | disposition home or self-care (01) ==
LOC: LAB 12:45
PROVIDERS: PCP Family Medicine Geriatric Medicine; Referring Provider Anesthesiology; Visit Provider Anesthesiology
DX: Z79.01 Long term (current) use of anticoagulants (principal); N39.0 Urinary tract infection, site not specified
CPT/HCPCS: 36415; 85610; 87086; 87088

== ENCOUNTER → 2025-02-21 | Outpatient (CLI) | payer MEDICARE, SELFPAY ==
[2025-02-21 10:27] LABS: International Normalized Ratio 1.3; Prothrombin Time (Protime)PT. 16.3 SECONDS (11.7-14.9)
== END | disposition home or self-care (01) ==
LOC: LAB 10:02
PROVIDERS: PCP Family Medicine Geriatric Medicine; Visit Provider Internal Medicine Cardiovascular Disease
DX: I48.91 Unspecified atrial fibrillation (principal); Z79.01 Long term (current) use of anticoagulants
CPT/HCPCS: 36415; 85610

== ENCOUNTER → 2025-02-22 | Outpatient (CLI) | payer MEDICARE, SELFPAY ==
[2025-02-22 10:40] LABS: CORTISOL AM 0.79 ug/dL (6.02-18.40)
== END | disposition home or self-care (01) ==
PROVIDERS: PCP Family Medicine Geriatric Medicine; Referring Provider Family Medicine Geriatric Medicine; Visit Provider Family Medicine Geriatric Medicine
DX: E24.9 Cushing's syndrome, unspecified (principal)
CPT/HCPCS: 36415; 82533

== ENCOUNTER → 2025-03-01 | Outpatient (CLI) | payer MEDICARE, SELFPAY ==
[2025-03-01 10:33] LABS: International Normalized Ratio 1.9; Prothrombin Time (Protime)PT. 22.3 SECONDS (11.7-14.9)
== END | disposition home or self-care (01) ==
LOC: LAB 09:19
PROVIDERS: PCP Family Medicine Geriatric Medicine; Visit Provider Internal Medicine Cardiovascular Disease
DX: I48.91 Unspecified atrial fibrillation (principal); Z79.01 Long term (current) use of anticoagulants
CPT/HCPCS: 36415; 85610

== ENCOUNTER → 2025-03-15 | Outpatient (CLI) | payer MEDICARE, SELFPAY ==
[2025-03-15 10:51] LABS: International Normalized Ratio 2.2; Prothrombin Time (Protime)PT. 24.8 SECONDS (11.7-14.9)
== END | disposition home or self-care (01) ==
LOC: LAB 09:45
PROVIDERS: PCP Family Medicine Geriatric Medicine; Visit Provider Internal Medicine Cardiovascular Disease
DX: I48.91 Unspecified atrial fibrillation (principal); Z79.01 Long term (current) use of anticoagulants
CPT/HCPCS: 36415; 85610

== ENCOUNTER → 2025-04-05 | Outpatient (CLI) | payer MEDICARE, SELFPAY ==
[2025-04-05 10:16] LABS: International Normalized Ratio 3.3; Prothrombin Time (Protime)PT. 34.2 SECONDS (11.7-14.9)
== END | disposition home or self-care (01) ==
LOC: LAB 09:18
PROVIDERS: PCP Family Medicine Geriatric Medicine; Visit Provider Internal Medicine Cardiovascular Disease
DX: I48.91 Unspecified atrial fibrillation (principal); Z79.01 Long term (current) use of anticoagulants
CPT/HCPCS: 36415; 85610

== ENCOUNTER → 2025-04-12 | Outpatient (CLI) | payer MEDICARE, SELFPAY ==
[2025-04-12 10:48] LABS: Prothrombin Time (Protime)PT. 42.8 SECONDS (11.7-14.9)
[2025-04-12 11:16] LABS: International Normalized Ratio 4.4
== END | disposition home or self-care (01) ==
LOC: LAB 10:07
PROVIDERS: PCP Family Medicine Geriatric Medicine; Visit Provider Internal Medicine Cardiovascular Disease
DX: I48.91 Unspecified atrial fibrillation (principal)
CPT/HCPCS: 36415; 85610

== ENCOUNTER → 2025-04-17 | Outpatient (CLI) | payer MEDICARE, SELFPAY ==
[2025-04-17 11:00] LABS: International Normalized Ratio 3.5; Prothrombin Time (Protime)PT. 35.7 SECONDS (11.7-14.9)
== END | disposition home or self-care (01) ==
LOC: LAB 09:45
PROVIDERS: PCP Family Medicine Geriatric Medicine; Visit Provider Internal Medicine Cardiovascular Disease
DX: I48.91 Unspecified atrial fibrillation (principal)
CPT/HCPCS: 36415; 85610

== ENCOUNTER 2025-04-19 12:30 | Outpatient (RCR) | payer MEDICARE, SELFPAY ==
--- NOTE | 2025-03-27 13:02 | HP.PTEVAL ---
Patient's Visit Information Visit Information Visit Information: MEENAKSHI NI Jr. is a 79 year old M referred to Physical Therapy by Dr. James Pisano MD with a diagnosis of DDD Lumbar Spine. Date of Evaluation: 03/27/25 Physical Therapist: Senia Paula DPT Visit Plan Frequency: 2x /Week Duration: 4 Weeks Plan: Focus on LE and core strength/stabilization- Functional mobility- gait training, endurance and balance. HEP Given IE: seated marching, HR/TR, hip abd/add, get up every 60 min and walk. Encouraged decreased sedentary lifestyle Subjective Subjective: Patient reports that he has been having back pain on/off for years. He has had his spine operated on multiple times along with a hip operation and an ankle operation. The last time he had PT on his back was last year- he has 7 steps to get into his apartment and he had a fall. He lives indep- he has help with bathing. The left leg is problematic and its what is bringing him to PT. He had an injection in his coccyx that helped about 3 weeks ago. He uses a FWW at home. Dr. Blair looked at his knee and his hip and they think its coming from his back. He does some sit to stands at home, marching in place but is not consistent. His last fall was a couple of months ago. Worst: 2.5/10 isolated in the left leg. Best: 1/10. The pain is dull and achy. He spends most of the day sitting in his chair. Sleep: too much. Plays games on his phone and watch TV. PMHx/Meds: see list in chart. Objective Objective: Posture: forward head, rounded shoulders, increased kyphosis- can not correct Gait: antalgic- left toes turned out to the side- 100 feet then requires rest break- decreased yuan and step length- FWW HR/TR: unable in standing Stairs: asc- bilateral HR with SBA for safety- step to pattern desc- bilateral HR with uncontrolled descend- step to pattern- CGA for safety Strength: Core:poor, Hip: Flexion: Left: 2+/5 uses UE to move, Right: 3+/5, Abd/Add: 4-/5, Knee: 4+/5, Ankle: 4/5 throughout Flex: HS: severe, Gastroc: severe Balance/Special Test Scores Functional Gait Assessment Score: 10 % Disability: 66.6700 Oswestry Low Back Score: 37 30 Second Chair Rise Test Seconds: 2 Goals Goal 1:: Patient will be I with HEP and progression Goal Time Frame: 4-6 Weeks Goal 2:: Patient will asc/desc 8 stairs recip with 1 HR indep safely Goal Time Frame: 4-6 Weeks Goal 3:: Patient will ambulate >300 feet mod I with LRD Goal Time Frame: 4-6 Weeks Goal 4:: Patient will sit to stand x5 without UE A Goal Time Frame: 4-6 Weeks Goal 5:: Patient will report 80% improvement Goal Time Frame: 4-6 Weeks Rehabilitation Potential Physical Therapy Diagnosis: Patient presents with decreased LE and core strength/stabilization, flex and muscular endurance leading to abnormal gait and decreased ability to perform ADL's. Rehabilitation Potential: Fair Anticipated Interventions Patient/Client Instruction: Educate patient on: Benefits of Fitness Program Therapeutic Exercise to Include: Strength training, Endurance training, Balance training, Coordination, Agility training, Body mechanics, Postural training, Flexibilty training, Gait and locomotor training, Neuromotor development, Dynamic Lumbar Stabilization and Scapular Strength/Stabilization For the Purpose of:: To improve muscle performance and motor function Text: Thank you for the opportunity to evaluate your patient. For Medicare and Medicare HMO plans, please review the plan of care and approve it. It will need to be FAXED BACK to us at [phone] for Medicare purposes. For Medicare only, by signing this I certify the plan of care. Please let me know if there are questions or concerns regarding this plan of care. Physician Signature: Date:
--- NOTE | 2025-06-14 07:19 | HP.PT.NRP ---
Patient Information Patient Information: MEENAKSHI NI Jr. was seen in my office for initial evaluation on 03/27/25. The following Plan of Care was established for this patient: POC Established Initial Frequency: 2x /Week Initial Duration: 4 Weeks Anticipated Interventions Patient/Client Instruction: Educate patient on: Benefits of Fitness Program Therapeutic Exercise to Include: Strength training, Endurance training, Balance training, Coordination, Agility training, Body mechanics, Postural training, Flexibilty training, Gait and locomotor training, Neuromotor development, Dynamic Lumbar Stabilization and Scapular Strength/Stabilization For the Purpose of:: To improve muscle performance and motor function Last Seen Last Seen: This patient was last seen in our office . Pertinent comments regarding their Physical therapy will appear below: Patient has not attended PT in over 30 days and is appropriate to be d/c and return to MD for further evaluation as needed At this point I will be discontinuing this patient from physical therapy. I would be happy to see this patient again in the future if found appropriate by the physician. Thank you! GERRY SherwoodT Balance/Gait/Functional tests Balance/Special Test Scores Functional Gait Assessment Score: 10 % Disability: 66.6700 Oswestry Low Back Score: 37 30 Second Chair Rise Test Seconds: 2
== END 2025-04-19 19:00 | disposition home or self-care (01) ==
LOC: PT 12:30
PROVIDERS: PCP Family Medicine Geriatric Medicine; Referring Provider Family Medicine Geriatric Medicine; Visit Provider Family Medicine Geriatric Medicine
DX: M48.061 Spinal stenosis, lumbar region without neurogenic claudication (principal); M54.50 Low back pain, unspecified
CPT/HCPCS: 97110

== ENCOUNTER 2025-04-24 15:09 | Outpatient (CLI) | payer MEDICARE, SELFPAY ==
[2025-04-24 16:51] LABS: Absolute Lymphocyte Count 0.98 X10^3/uL (0.83-4.51); Absolute Neutrophil Count 2.8 X10^3/uL (2.0-7.7); Basophil# 0.02 X10^3/uL; Basophil% 0.5 % (0-1); Eosinophil# 0.21 X10^3/uL; Eosinophils% 4.8 % (0-5); Hematocrit 35.2 % (40-54); Hemoglobin 11.7 g/dL (13.0-16.5); Lymphocyte # 0.98 X10^3/ul (0.83-4.51); Lymphocyte % 22.3 % (19-41); Mean Corp Hgb Conc 33.2 g/dL (32-36); Mean Corpuscular Hgb 29.8 pg (27.0-32.0); Mean Corpuscular Volume 89.6 fL (80-94); Mean Platelet Vol. 9.5 fl (6.2-12.0); Monocyte# 0.36 X10^3/uL; Monocyte% 8.2 % (0-10); NRBC Flagged by Analyzer 0 % (0-5); Neutrophil # 2.82 X10^3/uL (2.7-7.7); Platelet Count 116 K/mm3 (150-450); RBC Distribution Width SD 45.3 fl (35.1-43.9); Red Blood Count 3.93 M/mm3 (4.6-6.2); White Blood Count 4.4 K/mm3 (4.4-11.0)
[2025-04-24 17:01] LABS: International Normalized Ratio 2.7; Prothrombin Time (Protime)PT. 29.6 SECONDS (11.7-14.9)
[2025-04-25 15:11] LABS: ALB/GLOB Ratio 1.3 RATIO (0.9-2.4); AST(SGOT) 29 U/L (<=37); Alanine Aminotransfer ALT/SGPT 22 U/L (<=46); Albumin, Serum 4.1 g/dL (3.4-4.8); Alkaline Phosphatase 152 U/L (40-129); Anion Gap 10 (5-15); BUN 15 mg/dL (4-19); BUN/Creat Ratio 21.1 RATIO (10-20); Calcium,Total 9.7 mg/dL (7.6-11.0); Chloride 104 mmol/L (98-108); Creatinine, Serum 0.69 mg/dL (0.70-1.20); EST Glomerular Filtration Rate 95 (>60); Globulin 3.1 g/dL (2.2-4.2); Glucose 90 mg/dL (70-99); Potassium 4.5 mmol/L (3.3-5.1); Protein, Total 7.2 g/dL (5.9-8.4); Sodium Level 142 mmol/L (133-145); Total Bilirubin 1.37 mg/dL (0.00-1.30)
[2025-04-25 15:52] LABS: Vitamin D,25 Hydroxy 26.1 ng/mL (30-100)
== END 2025-04-24 23:59 | disposition home or self-care (01) ==
LOC: LAB 15:09
PROVIDERS: Internal Medicine Cardiovascular Disease; PCP Family Medicine Geriatric Medicine; Referring Provider Family Medicine Geriatric Medicine; Visit Provider Family Medicine Geriatric Medicine
DX: I10 Essential (primary) hypertension (principal); E55.9 Vitamin D deficiency, unspecified; Z79.01 Long term (current) use of anticoagulants
CPT/HCPCS: 36415; 80053; 82306; 84443; 85025; 85610

== ENCOUNTER → 2025-05-08 | Outpatient (CLI) | payer MEDICARE, SELFPAY ==
[2025-05-08 12:02] LABS: International Normalized Ratio 1.7; Prothrombin Time (Protime)PT. 20.4 SECONDS (11.7-14.9)
== END | disposition home or self-care (01) ==
LOC: LAB 09:12
PROVIDERS: PCP Family Medicine Geriatric Medicine; Visit Provider Internal Medicine Cardiovascular Disease
DX: Z79.01 Long term (current) use of anticoagulants (principal)
CPT/HCPCS: 36415; 85610

== ENCOUNTER → 2025-05-23 | Outpatient (CLI) | payer MEDICARE, SELFPAY ==
[2025-05-23 11:22] LABS: Prothrombin Time (Protime)PT. 20.7 SECONDS (11.7-14.9)
== END | disposition home or self-care (01) ==
LOC: LAB 08:50
PROVIDERS: PCP Family Medicine Geriatric Medicine; Visit Provider Internal Medicine Cardiovascular Disease
DX: Z79.01 Long term (current) use of anticoagulants (principal)
CPT/HCPCS: 36415; 85610

== ENCOUNTER → 2025-06-06 | Outpatient (CLI) | payer MEDICARE, SELFPAY ==
[2025-06-06 11:41] LABS: Prothrombin Time (Protime)PT. 25.5 SECONDS (11.7-14.9)
== END | disposition home or self-care (01) ==
LOC: LAB 10:05
PROVIDERS: PCP Family Medicine Geriatric Medicine; Visit Provider Internal Medicine Cardiovascular Disease
DX: Z79.01 Long term (current) use of anticoagulants (principal)
CPT/HCPCS: 36415; 85610

== ENCOUNTER → 2025-06-28 | Outpatient (CLI) | payer MEDICARE, SELFPAY ==
[2025-06-28 10:51] LABS: Prothrombin Time (Protime)PT. 24.8 SECONDS (11.7-14.9)
== END | disposition home or self-care (01) ==
LOC: LAB 09:08
PROVIDERS: PCP Family Medicine Geriatric Medicine; Visit Provider Internal Medicine Cardiovascular Disease
DX: Z79.01 Long term (current) use of anticoagulants (principal)
CPT/HCPCS: 36415; 85610

== ENCOUNTER → 2025-07-26 | Outpatient (CLI) | payer MEDICARE, SELFPAY ==
[2025-07-26 10:30] LABS: Prothrombin Time (Protime)PT. 25.7 SECONDS (11.7-14.9)
== END | disposition home or self-care (01) ==
LOC: LAB 08:48
PROVIDERS: PCP Family Medicine Geriatric Medicine; Visit Provider Internal Medicine Cardiovascular Disease
DX: Z79.01 Long term (current) use of anticoagulants (principal)
CPT/HCPCS: 36415; 85610

== ENCOUNTER → 2025-08-23 | Outpatient (CLI) | payer MEDICARE, SELFPAY ==
[2025-08-23 10:55] LABS: Prothrombin Time (Protime)PT. 28.4 SECONDS (11.7-14.9)
== END | disposition home or self-care (01) ==
LOC: LAB 09:21
PROVIDERS: PCP Family Medicine Geriatric Medicine; Visit Provider Internal Medicine Cardiovascular Disease
DX: Z79.01 Long term (current) use of anticoagulants (principal)
CPT/HCPCS: 36415; 85610

== ENCOUNTER → 2025-09-21 | Outpatient (CLI) | payer MEDICARE, SELFPAY ==
[2025-09-21 11:02] LABS: Prothrombin Time (Protime)PT. 36.2 SECONDS (11.7-14.9)
== END | disposition home or self-care (01) ==
LOC: LAB 10:45
PROVIDERS: PCP Family Medicine Geriatric Medicine; Referring Provider Internal Medicine Cardiovascular Disease; Visit Provider Internal Medicine Cardiovascular Disease
DX: Z79.01 Long term (current) use of anticoagulants (principal)
CPT/HCPCS: 36415; 85610

== ENCOUNTER → 2025-09-28 | Outpatient (CLI) | payer MEDICARE, SELFPAY ==
[2025-09-28 11:28] LABS: Prothrombin Time (Protime)PT. 31.6 SECONDS (11.7-14.9)
== END | disposition home or self-care (01) ==
LOC: LAB 10:24
PROVIDERS: PCP Family Medicine Geriatric Medicine; Visit Provider Internal Medicine Cardiovascular Disease
DX: Z79.01 Long term (current) use of anticoagulants (principal)
CPT/HCPCS: 36415; 85610

== ENCOUNTER → 2025-10-19 | Outpatient (CLI) | payer MEDICARE, SELFPAY ==
[2025-10-19 09:31] LABS: Prothrombin Time (Protime)PT. 20.9 SECONDS (11.7-14.9)
== END | disposition home or self-care (01) ==
LOC: LAB 08:54
PROVIDERS: PCP Family Medicine Geriatric Medicine; Visit Provider Internal Medicine Cardiovascular Disease
DX: Z79.01 Long term (current) use of anticoagulants (principal)
CPT/HCPCS: 36415; 85610

== ENCOUNTER → 2025-11-07 | Outpatient (CLI) | payer MEDICARE, SELFPAY ==
[2025-11-07 09:50] LABS: Prothrombin Time (Protime)PT. 24.9 SECONDS (11.7-14.9)
== END | disposition home or self-care (01) ==
LOC: LAB 09:02
PROVIDERS: PCP Family Medicine Geriatric Medicine; Visit Provider Internal Medicine Cardiovascular Disease
DX: Z79.01 Long term (current) use of anticoagulants (principal)
CPT/HCPCS: 36415; 85610